=== PATIENT | female | born 1935 | race Caucasian/White ===

== ENCOUNTER → 2016-04-19 | Outpatient (CLI) | payer OTHER, BC ==
[~2016-04-19] MED LIST: ACET-1256 PO; AMIO200T4 PO; ASPI81TA28 PO; CHOL1000 PO; DOCU1TAB6 PO; FEXO1TAB49 PO; LISI40TA PO; MELO7.5T5 PO; POLY1SOL6 OP; PRAV80TA PO; PRED1SUS3 OPB; PRLSR20 PO; REFRESH GEL OPB; WARF2TAB PO; [UNRECOGNIZED DRUG - CODE] OPB
--- NOTE | 2016-04-19 12:13 | DIAGNOSTIC IMAGING REPORT ---
LEFT LOWER EXTREMITY VENOUS DOPPLER CLINICAL HISTORY: Left lower extremity pain and edema. COMPARISON STUDY: No previous studies for comparison. TECHNIQUE: Sonography of the deep venous system of the left lower extremity was performed. Compression and augmentation were evaluated. FINDINGS: The left common femoral, superficial femoral and popliteal veins were compressible. Augmentation was normal. Flow was shown within the deep calf vessels. Note was made of a 6.6 x 2.9 x 1.9 cm complex cystic abnormality within left popliteal fossa. This contains no color flow. IMPRESSION: 1. No evidence of deep venous thrombus within the left lower extremity. 2. 6.6 x 2.9 x 1.9 cm complex cystic abnormality within the left popliteal fossa. This likely reflects a complex popliteal cyst. A follow up ultrasound could be performed in 6 months. Electronically signed by: Osei Rae M.D. 04/19/2016 12:11 PM Dictated Date/Time: 04/19/2016 12:10 PM
== END | disposition home or self-care (01) ==
LOC: C.ULTRBC 11:33
PROVIDERS: ATTEND Orthopaedic Surgery
DX: M79.605 Pain in left leg (principal)

== ENCOUNTER → 2016-05-31 | Outpatient (CLI) | payer OTHER, BC ==
[2016-05-31 13:25] LABS: BASO % 0.3 %; BASO ABS # 0.03 K/uL (0-0.2); COMPLETE YES; EOS % 1.6 %; HEMATOCRIT 40.3 % (37-47); IG% 0.3 %; LYMPH % 17.1 %; LYMPH ABS # 1.81 K/uL (1.2-3.4); MEAN CELL VOLUME 94.6 fL (80-100); MEAN CORPUSCULAR HEMOGLOBIN 32.4 pg (25-34); MEAN CORPUSCULAR HGB CONC 34.2 g/dl (32-36); MONO % 9.1 %; NEUT % 71.6 %; PLATELET COUNT 218 K/uL (130-400); RED BLOOD COUNT 4.26 M/uL (4.2-5.4); WHITE BLOOD COUNT 10.59 K/uL (4.8-10.8)
[2016-05-31 13:52] LABS: PFT COL EPI 150 SECONDS (80-184)
== END | disposition home or self-care (01) ==
LOC: C.LABBC 11:30
PROVIDERS: ATTEND Orthopaedic Surgery Sports Medicine
DX: M25.469 Effusion, unspecified knee (principal)

== ENCOUNTER → 2016-08-02 | Outpatient (CLI) | payer OTHER, BC ==
[~2016-08-02] MED LIST changes: +ACET-24 PO; +ASPEC325 PO; +CRD200 PO; +FRRG PO; +REFRESH LIQUIGEL OPB; +ULT50X PO
--- NOTE | 2016-08-02 17:39 | DIAGNOSTIC IMAGING REPORT ---
ULTRASOUND LEFT LOWER EXTREMITY VENOUS CLINICAL HISTORY: Left leg pain and swelling. COMPARISON STUDY: Left lower extremity venous ultrasound dated 04/19/2016. TECHNIQUE: Real-time, grayscale, and color Doppler sonography of the deep veins of the left lower extremity was performed from the inguinal crease to the calf. Compression and augmentation were utilized. FINDINGS: There is no sonographic evidence of deep venous thrombosis identified in the left lower extremity. The common femoral, superficial femoral, and popliteal veins are patent and normally compressible. The greater saphenous vein and the profunda femoris vein at the junction with the common femoral vein are clear. The visualized calf veins are patent. A large complex structure in the popliteal fossa extending to the upper calf measures approximately 24 x 5 x 7 cm. Internal flow is questioned on color imaging. IMPRESSION: 1. There is no sonographic evidence of deep venous thrombosis identified in the left lower extremity. 2. There is a large complex collection identified in the popliteal fossa. This likely represents a popliteal cyst with rupture. Clinical correlation will be essential. Clinical follow-up to resolution is recommended. Consider precautionary sonographic follow-up if this fails to resolve. Electronically signed by: Guillermo Paniagua M.D. 08/02/2016 5:37 PM Dictated Date/Time: 08/02/2016 5:35 PM
== END | disposition home or self-care (01) ==
LOC: C.ULTR 16:46
PROVIDERS: ATTEND Family Medicine
DX: M79.662 Pain in left lower leg (principal)

== ENCOUNTER 2020-07-15 10:49 | Inpatient (IN) ==
[2020-07-15] MEDS ORDERED: SODIUM CHLORIDE 0.9% 1000ML 1,000 ML IV SCH (11:45)
--- NOTE | 2020-07-15 11:58 | XRay Report ---
SINGLE VIEW CHEST CLINICAL HISTORY: Atypical chest pain. FINDINGS: An AP, portable, upright chest radiograph is compared to study dated 01/19/2017. The patien t is status post midline sternotomy. The heart is mildly enlarged noting atherosclerotic calcificatio n of the thoracic aorta. There is a large hiatal hernia. The pulmonary vasculature is noncongested. C hronic interstitial thickening is similar to previous. No airspace consolidation or large pleural eff usion is identified. Mild atelectasis is noted at the lung bases. No pneumothorax is seen. The skelet al structures are osteopenic. The bony thorax is grossly intact. IMPRESSION: 1. Cardiomegaly with no acute cardiopulmonary abnormality. 2. Large hiatal hernia. ACT 112: Negative or not required by law. Electronically signed by: Guillermo Paniagua M.D. 07/15/2020 11:57 AM
[2020-07-15 12:08] LABS: Basophils # (auto) 0.02 K/uL (0-0.2); Basophils % (auto) 0.2 %; Hematocrit (blood only) 38.9 % (37-47); Hemoglobin 12.7 g/dL (12.0-16.0); Immature Granulocytes # (auto) 0.02 K/uL (0.00-0.02); Immature Granulocytes % (auto) 0.2 %; Lymphocytes # (auto) 1.53 K/uL (1.2-3.4); Lymphocytes % (auto) 14.5 %; Mean Corpuscular Hemoglobin 28.9 pg (25-34); Mean Corpuscular Hgb Conc 32.6 g/dL (32-36); Mean Corpuscular Volume 88.6 fL (80-100); Mean Platelet Volume 10.7 fL (7.4-10.4); Monocytes # (auto) 0.78 K/uL (0.11-0.59); Monocytes % (auto) 7.4 %; Neutrophils # (auto) 8.23 K/uL (1.4-6.5); Neutrophils % (auto) 77.7 %; Platelet Count 218 K/uL (130-400); RDW Coefficient of Variation 14.9 % (11.5-14.5); RDW Standard Deviation 48.4 fL (36.4-46.3); Red Blood Count 4.39 M/uL (4.2-5.4); White Blood Count 10.58 K/uL (4.8-10.8)
[2020-07-15 12:18] LABS: INR 1.1 (0.9-1.1); Partial Thromboplastin Ratio 0.8; Partial Thromboplastin Time 21.1 Seconds (21.0-31.0); Prothrombin Time 11.2 Seconds (9.0-12.0)
[2020-07-15 12:25] LABS: Alanine Aminotransferase 15 U/L (12-78); Albumin Level 3.1 gm/dl (3.4-5.0); Aspartate Aminotransferase 15 U/L (15-37); BUN Creatinine Ratio 25.7 (10-20); Bilirubin Direct < 0.1 mg/dl (0-0.2); Blood Urea Nitrogen 21 mg/dl (7-18); Calcium 8.7 mg/dl (8.5-10.1); Carbon Dioxide 29 mmol/L (21-32); Chloride 100 mmol/L (98-107); Creatinine Clr Calc Pharmacy 48.3 ml/min; Est GFR (African American) 76.1; Est GFR (Non-African American) 65.7; Glucose 101 mg/dl (70-99); Lipase 178 U/L (73-393); Magnesium 1.9 mg/dl (1.8-2.4); Potassium 2.8 mmol/L (3.5-5.1); Sodium 136 mmol/L (136-145)
[2020-07-15 12:30] LABS: Alkaline Phosphatase 74 U/L (45-117); Bilirubin,Total 0.7 mg/dl (0.2-1); Total Protein 9.2 gm/dl (6.4-8.2); Troponin I < 0.015 ng/ml (0-0.045)
[2020-07-15] MEDS ORDERED: ONDANSETRON INJ 2 MG/ML 2 ML VIAL IV STA (13:07)
[2020-07-15] MEDS ORDERED: ONDANSETRON INJ 2 MG/ML 2 ML VIAL ONE (13:09)
--- NOTE | 2020-07-15 13:16 | History & Physical Report ---
Date of Service July 15, 2020 Assessment & Plan (1) Nausea and vomiting: - Admit to tele - Antiemetics with zofran and compazine IV - IVF with K+ replacement, Monitor BMP to ensure improvement in K+ - Clear liquid diet as tolerated - Noted to be on magnesium replacement since last hospitalization, adverse effect of diarrhea, consider nephrology input regarding replacement therapy needs. (2) Atrial fibrillation with RVR: -EKG reviewed showing afib with HR in 110s -Last echo completed on 12/28/2019: reviewed per Epic. LVEF of 55-59%, LV wall thickness is moderately increased. s/p aortic root replacement Aortic valve prosthesis systolic gradients are normal for this type prosthesis. Mild mitral regurg present Mild tricuspid regurg present. - Cardiology consult, Dr. Shah - Will give IV lopressor 5 mg now, hold po metoprolol - Heparin gtt as cannot take po meds, convert to eliquis as per cardiology and once able to tolerate po. (3) Aortic stenosis, severe: - As above, noted on exam (4) H/O aortic valve replacement: -prosthetic valve done [place] [facility] [place]aced September 2016 -follows with Dr. Salomon as outpt. -initial trop negative (5) HTN (hypertension): - BP initially elevate at 147/84, not on antihypertensives as outpatient (6) HLD (hyperlipidemia): - Cont pravastatin 80 mg daily (7) Vertigo: - hx of such, stable (8) MGUS (monoclonal gammopathy of unknown significance): - Recent diagnosis, follows with [facility] heme/onc. Had recent bone marrow biopsy which was reassuring. PCP planning to follow monthly labs done at [facility] and considering yearly bone marrow biopsy. (9) Osteoarthritis: - Hx of such - Vit D on hold since hospitalization earlier this year. Was told by slot manager to DC this medication. (10) GERD (gastroesophageal reflux disease): - Recently taken off omeprazole (11) Hypokalemia: - Noted 2.8 on admission, will replace. Follow BMP. (12) DVT prophylaxis: - teds, heparin as above CODE: Full code Dispo: From home, likely to remain in the hospital x 2 days. History of Present Illness Primary Care Provider: Eliazar Reis MD This in an 84 yo F with PMHx of Aortic stenosis s/p AV replacement on baby aspirin, Paroxysmal Afib s/p ablation and conversion with amiodarone, left atrial appendage ligation in September 2016 HLD, MGUS, osteoarthritis, GERD, allergic rhinitis, nephrolithiasis and vertigo who presents from her PCP office with c/o nausea, weakness, vomiting x 3 days. She has hx of nausea and vomiting once monthly which happened 1.5 mo ago, which resulted in hospitalization for dehydration and hypercalcemia. At that time she was placed on magnesium supplements and thinks that diarrhea has been a daily/every other day occurrence since then. She is unable to keep food down currently despite trials with Pedialyte and water. She has not been able to keep her medications down since Tuesday night. Pt was previously on omeprazole, but nephrology discontinued this medication recently, and hasn't taken it in about 1 month. She reports weakness, denies dizziness and lightheadedness. Admits to substernal burning, no chest pain or pressure. Pt does not feel palpitations or irregular heartbeat. She has not been in afib since the time of her aortic valve replacement, and although previously on coumadin, is no longer on anticoagulation other than baby aspirin. The patient was here visiting her daughter over the , as she typically resides in [place] with her other daughter, Nicole, who is present at bedside. She gets her medical care here as well as [facility] heme/onc and [facility]. Pt typically is able to care for herself at home. She walks with a cane. Daughter also mentions pt with hx of during last hospita lization, and requests to be able to visit. We discussed visitor restrictions due to the COVID-19 pandemic, and unfortunately at this time no visitors are allowed on the floors. Allergies Allergy/AdvReac Type Severity Reaction Status Date / Time simvastatin Allergy Unknown ELEVATED Verified 07/15/20 11:49 LIVER ENZYMES oxaprozin AdvReac Intermediate MAKES FEEL Verified 07/15/20 11:49 DEPRESSED Home Medications Medication Instructions Recorded Confirmed Type alendronate 70 mg PO WK 07/15/20 07/15/20 History magnesium oxide 1,000 mg PO TID 07/15/20 07/15/20 History potassium chloride 20 meq PO DAILY 07/15/20 07/15/20 History pravastatin 80 mg PO DAILY 07/15/20 07/15/20 History prednisolone acetate 1 drp OPHTHALMIC (EYE) UD 07/15/20 07/15/20 History sod phos di, mono-K phos mono 2 tab PO TID 07/15/20 07/15/20 History [Phospha 250 Neutral] solifenacin 5 mg PO DAILY 07/15/20 07/15/20 History Past Med/Surg History Social History Smoking Status: Never smoker Preferred Language: Sammarinese Feels Safe at Home: Yes Review of Systems Review of Systems: Constitutional: No fever, sweats or chills, + weakness Eyes: No diplopia, no worsening or blurred vision ENT: normal hearing, no trouble swallowing Respiratory: No cough, sputum, dyspnea at rest or on exertion Cardiovascular: + substernal burning, no distinct chest pain, tightness or palpitations Abdomen: As per HPI, No pain, +nausea, +vomiting, + chronic diarrhea since being on magnesium, no constipation Musculoskeletal: No joint pain, calf pain, swelling Neurologic: No weakness, numbness/tingling, + balance problems and uses a cane at baseline Psychiatric: No anxiety or depression, + sundowning Skin: No rash or itch Physical Exam Physical Exam: General: awake, alert, no apparent distress Head: Normocephalic, atraumatic ENT: PERRL, EOMI, no pharyngeal exudate, mucous membranes moist Chest: Clear to auscultation, on room air, no adventitious breath sounds Cardiac: Irregularly irregular, HR ~ 110s at rest. When sat her forward to auscultate lungs HR went into 170s when she became nauseous and was actively dry heaving at bedside, + loud systolic murmur grade V/, no JVD, normal peripheral pulses, good capillary refill Abdominal: NABS x 4 quadrants, soft, nondistended, nontender to palpation, no rebound or guarding Extremities: Normal inspection, no peripheral edema or erythema, calfs nontender to palpation Psych: Normal mood and affect Neuro: AAO x 3, strength intact bilaterally and rated 5/5, no motor deficits, speech is clear, no peripheral sensory deficits Results & Data Results & Data ([facility]) Vital Signs (Past 12 Hours) Vital Signs Temp Pulse Resp BP Pulse Ox 07/15/20 10:54 37.5 C 119 H 18 147/84 H 94 Diagnostic Findings SINGLE VIEW CHEST CLINICAL HISTORY: Atypical chest pain. FINDINGS: An AP, portable, upright chest radiograph is compared to study dated 01/19/2017. The patient is status post midline sternotomy. The heart is mildly enlarged noting atherosclerotic calcification of the thoracic aorta. There is a large hiatal hernia. The pulmonary vasculature is noncongested. Chronic interstitial thickening is similar to previous. No airspace consolidation or large pleural effusion is identified. Mild atelectasis is noted at the lung bases. No pneumothorax is seen. The skeletal structures are osteopenic. The bony thorax is grossly intact. IMPRESSION: 1. Cardiomegaly with no acute cardiopulmonary abnormality. 2. Large hiatal hernia. ECG Additional Comments: 15-JUL-2020 11:07:05 [facility]-EDSTAT ROUTINE RETRIEVAL Atrial fibrillation with rapid ventricular response with premature ventricular or aberrantly conducted complexes Left axis deviation Right bundle branch block Voltage criteria for left ventricular hypertrophy Abnormal ECG No previous ECGs available 25mm/s 10mm/mV 150Hz 9.0.9 12SL 241 PONCHO: 3 Referred by: REFERRED SELF Unconfirmed Vent. rate 116 BPM SC interval * ms QRS duration 154 ms QT/QTc 362/503 ms Code Status & VTE Plan Code Status Full code- discussed with the pt and daughter at bedside Supervising Physician Co-Signing Physician Notes I saw this patient with the physician virtual office assistant, I participated in the history, physical, review of systems, and physical exam. I reviewed the medications with the patient and the physician virtual office assistant and helped reconcile the medications. I helped take a detailed family and social history as well. I formulated the assessment and plan personally with the physician virtual office assistant and went over it with the patient. ROS-No Headache, No Visual Changes, + Nausea, + Vomiting, No Fever, No Chills, No Neck Pain or Stiffness, No Chest Pain, No Palpitations, No SOB, No GARCIA, No Cough, No Sputum, No Wheezing, No Abdominal Pain, + Diarrhea, No Hematemesis, No Hemoptysis, No Unexpected Weight Loss, No Flank pain, No Melena, No Hematochezia, No Frequency, No Urgency, No Burning, No Hematuria, No Rashes, No Diaphoresis. Appetite is Normal, Palpitations Physical Exam Gen-AAO x 3, NAD, Afebrile, obese Head-NCAT, EOMI, PERRLA, Anicteric Sclera, No Posterior Pharyngeal Erythema Neck-Supple, No JVD, No Thyromegaly, No Masses, No LAD, No Bruits Lungs-Clear to Auscultation Bilaterally, No Rales, No Rhonchi, No Wheezing, No Crepitus Chest-Irreg/Irreg, No S4, +S1, +S2, No S3, No Murmurs, No Rubs, No Gallops, + Ectopy Abdomen-Soft, Bowel Sounds Present, Non Tender, Non Distended, No Hepatomegaly, No Splenomegaly, No Palpable Masses, No Rebound, No Rigidity, No Guarding Musculoskeletal-Full Range of Motion Bilaterally, No CVAT Extremities-No Cyanosis, No Clubbing, No Edema Nuero-Cranial Nerves II-XII grossly intact, Motor WNL, DTRs WNL, Strength WNL, Non Focal Psych-Normal Mood
[2020-07-15] MEDS ORDERED: OPTIRAY 320 125ml IV ONE (13:18)
[2020-07-15 13:35] LABS: Influenza A virus by PCR Negative (Neg); Influenza B virus by PCR Negative (Neg); RSV by PCR Negative (Neg); SARS CoV2 RNA(COVID-19) InHosp NEGATIVE (Negative)
--- NOTE | 2020-07-15 13:48 | CT Scan Report ---
CT ANGIOGRAPHY OF THE CHEST, PULMONARY EMBOLUS PROTOCOL CLINICAL HISTORY: Abdominal pain, nausea and vomiting. COMPARISON STUDY: Chest radiograph performed earlier today. Chest radiograph January 19, 2017. TECHNIQUE: Following IV administration of 120 mL of Optiray-320, helical axial images of the chest we re obtained utilizing the pulmonary embolus protocol. Maximal intensity projections and sagittal and coronal reformats were viewed on an independent 3D workstation. IV contrast was administered withou t complication. Automated exposure control was utilized for the study. A dose lowering technique wa s utilized adhering to the principles of ALARA. CT DOSE: 975.06 mGy.cm FINDINGS: No pulmonary emboli are identified. Moderate cardiomegaly is noted. There is moderate darshan nary artery calcification. Left atrial appendage occluder device is noted. There is no pericardial ef fusion. No enlarged thoracic lymph nodes are present. There is a trace right pleural effusion. No pne umothorax is present. Central airways are patent. There is no consolidation to suggest pneumonia. Yvette ear and ground glass opacities favor atelectasis. Note is made of a large hiatal hernia. The GE junct ion is above the diaphragm. The gastric cardia, fundus and proximal body of the stomach are above the diaphragm as well. IMPRESSION: 1. No pulmonary emboli identified. 2. 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 3. Trace right pleural effusion. 4. Cardiomegaly. ACT 112: Negative or not required by law. Electronically signed by: Osei Rae M.D. 07/15/2020 1:46 PM
--- NOTE | 2020-07-15 13:55 | CT Scan Report ---
CT abd pelvis IV con only CLINICAL HISTORY: Nausea, vomiting, Willy pain. COMPARISON STUDY: None. TECHNIQUE: Patient was scanned in a dynamic helical fashion during intravenous administration of 120 cc of Optiray 320. A dose lowering technique was utilized adhering to the principles of ALARA. CT DOSE: FINDINGS: Lower chest: There is a large hiatal hernia with a mixed sliding and paraesophageal component. There is a small right pleural effusion. There are lower lobe atelectatic changes. Liver: There is a capsular calcification at the junction of the left and right hepatic lobes. Gallbladder: There is a 6 mm hyperdense focus within the gallbladder fundus, polyp versus adenomyomat osis. Spleen: Normal in size and attenuation. Pancreas: There is a 1 cm hypodense lesion within the pancreatic head. There is no pancreatic ductal dilatation. This statistically represents a side branch IPMN. 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 There are bilateral renal hypodensities con sistent with cysts Bowel: There are no transition zones indicate bowel obstruction. There are dilated small bowel loops, but these are not fluid-filled and the findings are unlikely to represent an obstruction. There is m ild dilatation the duodenum proximal to the SMA crossover. There is colonic diverticulosis. There is no evidence of acute peridiverticular inflammatory change. The appendix appears normal. There is a 2. 5 cm polyp versus adherent stool within the transverse colon. Endoscopic correlation should be consid ered in follow-up. Peritoneum: There is no intraperitoneal free air or abdominal ascites. Is a 8 cm fat-containing umbil ical hernia Vasculature: The abdominal aorta is normal in course and caliber. Adenopathy: None. Pelvic viscera: The uterus is surgically absent Skeletal structures: There is a grade 1 spondylolisthesis of L5 on S1 IMPRESSION: 1. Large hiatal hernia with a mixed sliding and paraesophageal components 2. Small right pleural effusion 3. Mildly dilated small bowel loops, but no current evidence of a high-grade obstruction. 4. 2.5 cm polyp within the transverse colon versus adherent stool. Endoscopic correlation should be c onsidered in follow-up 5. 8 cm fat-containing umbilical hernia 6. 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 Right-sided nephrolithiasis 8. 6 mm hyperdense focus within the gallbladder fundus, polyp versus adenomyomatosis 9. Nonspecific 1 cm hypodensity within the pancreatic head, possibly representing a side branch IPMN. No pancreatic ductal dilatation. 10. Normal appendix 11. Extensive sigmoid diverticulosis. No evidence of acute peridiverticular inflammatory change ACT 112: Negative or not required by law. Electronically signed by: Brayden Johnson M.D. 07/15/2020 1:53 PM
[2020-07-15] MEDS: POTASSIUM CHLORIDE 10 MEQ TABCR PO STA ×2 (14:17→14:44)
[2020-07-15] MEDS: POTASSIUM CHLORIDE / WTR 10 MEQ/100 ML PLCT IV SCH ×2 (14:17→15:56)
[2020-07-15] MEDS ORDERED: METOPROLOL TARTRATE 25 MG TAB PO STA (14:35)
[2020-07-15] MEDS ORDERED: APIXABAN 5 MG TABLET PO STA (14:36)
--- NOTE | 2020-07-15 14:47 | Electrocardiogram Report ---
Test Reason : Blood Pressure : / mmHG Vent. Rate : 116 BPM Atrial Rate : 127 BPM P-R Int : 000 ms QRS Dur : 154 ms QT Int : 362 ms P-R-T Axes : 000 -42 046 degrees QTc Int : 503 ms Atrial fibrillation with rapid ventricular response with premature ventricular or aberrantly conducte d complexes Left axis deviation Right bundle branch block Voltage criteria for left ventricular hypertrophy Abnormal ECG No previous ECGs available Confirmed by John Roca ([id number]) on 07/15/2020 2:47:14 PM Referred By: REFERRED SELF Confirmed By:John Roca
[2020-07-15] MEDS ORDERED: METOPROLOL TARTRATE 1 MG/ML VIAL IV STA (14:50)
[2020-07-15] MEDS ORDERED: PROMETHAZINE HCL 6.25 MG in SODIUM CHLORIDE 0.9% 50 ML IV STA (14:50)
[2020-07-15] MEDS ORDERED: PROMETHAZINE 6.25 MG/50.25 ML NSS IV ONE (14:56)
[2020-07-15] MEDS ORDERED: Heparin IV Adult Wt-Based Standard *NO* Bolus Protocol ONE (15:00)
[2020-07-15] MEDS: HEPARIN SODIUM/DEXTROSE 25,000 UNITS/500 ML BAG IV SCH (15:45)
--- NOTE | 2020-07-15 17:46 | Emergency Department Note ---
History of Present Illness General Chief Complaint: Cardiac Assessment Stated Complaint: AFIB, , VOMITING Time Seen by Provider: 07/15/20 11:25 History of Present Illness Provider Complaint: abdominal pain Onset (ago): 2 day(s) Pain Consistency: intermittent Location: diffuse Radiation: none Severity: moderate Maximum Pain Intensity: 0 Current Pain Intensity: 0 Quality: + cramping, + stabbing, + aching and + sharp Relieved By: + nothing Exacerbated By: + nothing Context: no foreign travel, no possible food poisoning, no sick contacts, no recent antibiotic use, no recent surgery/procedure and no history of similar episodes Associated Symptoms: + nausea and + vomiting; no diarrhea, no fever, no chills, no constipation, no dysuria, no hematemesis, no hematochezia, no melena, no hematuria, no anorexia, no syncope, no headache, no neck pain, no back pain, no chest pain, no weakness and no breathing difficulty Patient states she went to her PCPs office at [facility] where they found that she had atrial fibrillation. Per the [facility] provider who saw her the patient does not have a history of atrial fibrillation. Patient's daughter is at [facility] and states she had a heart valve replaced [place] [address] Olvera in [facility] and at that time she did have an episode of atrial fibrillation before and after the procedure. The daughter states that the patient was on Coumadin and amiodarone however they were subsequently stopped. Patient is currently not on any blood thinners. Home Medications Medication Instructions Recorded Confirmed Type alendronate 70 mg PO WK 07/15/20 07/15/20 History magnesium oxide 1,000 mg PO TID 07/15/20 07/15/20 History potassium chloride 20 meq PO DAILY 07/15/20 07/15/20 History pravastatin 80 mg PO DAILY 07/15/20 07/15/20 History prednisolone acetate 1 drp OPHTHALMIC (EYE) UD 07/15/20 07/15/20 History sod phos di, mono-K phos mono 2 tab PO TID 07/15/20 07/15/20 History [Phospha 250 Neutral] solifenacin 5 mg PO DAILY 07/15/20 07/15/20 History Allergies Allergy/AdvReac Type Severity Reaction Status Date / Time simvastatin Allergy Unknown ELEVATED Verified 07/15/20 11:49 LIVER ENZYMES oxaprozin AdvReac Intermediate MAKES FEEL Verified 07/15/20 11:49 DEPRESSED Past Med/Surg History Medical History (Updated 07/15/20 @ 17:47 by Joreg Ramos) GERD (gastroesophageal reflux disease) HLD (hyperlipidemia) HTN (hypertension) MGUS (monoclonal gammopathy of unknown significance) No pertinent family history Surgical History (Updated 07/15/20 @ 17:41 by Jorge Ramos) H/O aortic valve replacement Social History Smoking Status: Never smoker Preferred Language: Polish Feels Safe at Home: Yes Review of Systems A total of 10 systems reviewed and were otherwise negative Physical Exam Vital Signs: Vital Signs - 24 hr 07/15/20 10:54 07/15/20 11:39 07/15/20 12:50 Temperature 37.5 C Temperature Source Temporal Artery Sc an Pulse Rate 119 H Pulse Rate [Apical ] 103 H Respiratory Rate 18 18 Respiratory Effort / Characteristics Non-Labored Sponta neous Respiratory Depth Normal Respiratory Patter n Regular Blood Pressure 147/84 H Blood Pressure [Le ft Arm] 178/98 H Blood Pressure Apurva n 105 Blood Pressure Apurva n [Left Arm] 124 Blood Pressure Pos ition Sitting Pulse Oximetry 94 94 94 Oxygen Delivery Me thod Room Air Room Air Room Air Sepsis Recent Feve r Within 48 Hours No Sepsis New/Unexpla ined Change in Men bean Status N/A Sepsis Action Take n by Nursing No Action Required 07/15/20 14:00 Temperature Temperature Source Pulse Rate Pulse Rate [Apical ] 100 H Respiratory Rate 18 Respiratory Effort / Characteristics Respiratory Depth Respiratory Patter n Blood Pressure Blood Pressure [Le ft Arm] 182/110 H Blood Pressure Apurva n Blood Pressure Apurva n [Left Arm] 134 Blood Pressure Pos ition Pulse Oximetry 94 Oxygen Delivery Me thod Room Air Sepsis Recent Feve r Within 48 Hours Sepsis New/Unexpla ined Change in Men bean Status Sepsis Action Take n by Nursing Physical Exam: Physical Exam GENERAL: She is oriented to person, place, and time. She appears well-developed and well-nourished. She does not appear distressed. HENT: Exam performed. -Head: Normocephalic and atraumatic. -Right Ear: External ear normal. No mastoid tenderness. -Left Ear: External ear normal. No mastoid tenderness. -Mouth/Throat: The oropharynx is clear and moist. No trismus in the jaw. No dental abscesses or uvula swelling. No oropharyngeal exudate or tonsillar abscesses. EYES: Conjunctivae and EOM are normal. Pupils are equal, round, and reactive to light. Right eye exhibits no discharge. Left eye exhibits no discharge. No scleral icterus. NECK: Normal range of motion. Neck supple. No JVD present. No spinous process tenderness present. No carotid bruit present. No rigidity. No tracheal deviation and normal range of motion present. No Brudzinski's sign and no Kernig's sign noted. CV: Normal rate, irregular rhythm, normal heart sounds and intact distal pulses. There is no peripheral edema. Palpable radial pulses bue. PULM/CHEST: Effort normal and breath sounds normal. No respiratory distress. No stridor. She has no wheezes. She has no rales. -Chest Wall: She exhibits no tenderness. ABD: The abdomen is soft. Bowel sounds are normal. She has no distension. No mass is present. There is no tenderness. There is no rebound, no guarding, no Thomson's sign and no tenderness at McBurney's point. Rovsig negative MUSC/SKEL: Normal range of motion. There is no peripheral edema, tenderness or deformity. LYMPH: No cervical adenopathy. NEURO: She is alert and oriented to person, place, and time. She has normal strength. No cranial nerve deficit or sensory deficit. Coordination and gait normal. GCS eye subscore is 4. GCS verbal subscore is 5. GCS motor subscore is 6. Cerebellar tests wnl. SKIN: Skin is warm and dry. She is not diaphoretic. PSYCH: She has a normal mood and affect. Behavior is normal. Judgment and thought content normal. Course Course 1125: The patient was evaluated in room B2. A complete history and physical exam was performed Cardiac monitoring: An order was placed for continuous cardiac monitoring. The monitor shows a rate of 115 with atrial fibrillation rhythm 1430: Vital signs stable. Labs within normal limits with exception of potassium 2.8. Potassium please will be started in the emergency department. Imaging shows no PE. Discussed the case with cardiology Dr. Lara who states he will add metoprolol and Eliquis for the patient. He recommends admission to the hospitalist team. Case was discussed with Flor OLIVA stated to admit to Dr. Argueta. Administered Medications Sodium Chloride (Nss 1000ml) 1,000 mls @ 125 mls/hr IV .Q8H [facility] Stop: 08/14/20 11:44 Last Admin: 07/15/20 12:31 Dose: 125 mls/hr Documented by: [id number] Heparin Sodium/Dextrose (Heparin Sodium/Dextrose) 25,000 units in 500 mls @ 21 mls/hr IV .[id number] [facility]; Protocol Stop: 08/14/20 14:59 Last Admin: 07/15/20 15:45 Dose: 1,050 units/hr, 21 mls/hr Documented by: [id number] Cosigned by: [id number] Discontinued Medications Apixaban (Apixaban 5 Mg Tablet) 5 mg PO NOW STA Stop: 07/15/20 14:37 Last Admin: 07/15/20 15:41 Dose: Not Given Documented by: [id number] Potassium Chloride (K Edu / Wtr) 10 meq in 100 mls @ 100 mls/hr IV Q1H [facility] Stop: 07/15/20 15:59 Last Infusion: 07/15/20 16:59 Dose: 0 mls/hr Documented by: [id number] Admin: 07/15/20 15:56 Dose: 100 mls/hr Documented by: [id number] Infusion: 07/15/20 15:17 Dose: 0 mls/hr Documented by: [id number] Admin: 07/15/20 14:17 Dose: 100 mls/hr Documented by: [id number] Promethazine HCl 6.25 mg/ (Sodium Chloride) 50.25 mls @ 201 mls/hr IV NOW STA Stop: 07/15/20 15:04 Last Infusion: 07/15/20 15:16 Dose: 0 mls/hr Documented by: [id number] Admin: 07/15/20 15:00 Dose: 201 mls/hr Documented by: [id number] Ioversol (Optiray 320 125ml) 120 ml IV ONCE ONE Stop: 07/15/20 13:19 Last Admin: 07/15/20 13:18 Dose: 120 ml Documented by: [id number] Metoprolol Tartrate (Metoprolol Tartrate 25 Mg Tab) 25 mg PO NOW STA Stop: 07/15/20 14:36 Last Admin: 07/15/20 15:17 Dose: Not Given Documented by: [id number] Metoprolol Tartrate (Metoprolol Tartrate 1 Mg/Ml Vial) 5 mg IV NOW STA Stop: 07/15/20 14:51 Last Admin: 07/15/20 15:07 Dose: 5 mg Documented by: [id number] Ondansetron HCl (Ondansetron Inj 2 Mg/Ml 2 Ml Vial) Confirm Administered Dose 4 mg .ROUTE .[facility] ONE Stop: 07/15/20 13:10 Last Admin: 07/15/20 13:15 Dose: Not Given Documented by: [id number] Ondansetron HCl (Ondansetron Inj 2 Mg/Ml 2 Ml Vial) 4 mg IV NOW STA Stop: 07/15/20 13:08 Last Admin: 07/15/20 13:15 Dose: 4 mg Documented by: [id number] Potassium Chloride (Potassium Chloride 10 Meq Tabcr) 40 meq PO NOW STA Stop: 07/15/20 14:01 Last Admin: 07/15/20 14:44 Dose: 10 meq Documented by: [id number] Promethazine HCl (Promethazine 6.25 Mg/50.25 Ml Nss) Confirm Administered Dose 6.25 mg IV .[employer] ONE Stop: 07/15/20 14:57 Last Admin: 07/15/20 15:00 Dose: Not Given Documented by: [id number] Medical Decision Making Laboratory Data Result diagrams: 07/15/20 11:15 07/15/20 11:15 Lab Results 07/15/20 07/15/20 07/15/20 Range/Units 11:15 11:15 11:15 WBC 10.58 (4.8-10.8) K/uL RBC 4.39 (4.2-5.4) M/uL Hgb 12.7 (12.0-16.0) g/dL Hct 38.9 (37-47) % MCV 88.6 (80-100) fL MCH 28.9 (25-34) pg MCHC 32.6 (32-36) g/dL RDW Std Deviation 48.4 H (36.4-46.3) fL RDW Coeff of Tung 14.9 H (11.5-14.5) % Plt Count 218 (130-400) K/uL MPV 10.7 H (7.4-10.4) fL Immature Gran % (Auto) 0.2 % Neut % (Auto) 77.7 % Lymph % (Auto) 14.5 % [place] % (Auto) 7.4 % Eos % (Auto) 0.0 % Baso % (Auto) 0.2 % Neut # (Auto) 8.23 H (1.4-6.5) K/uL Lymph # (Auto) 1.53 (1.2-3.4) K/uL [place] # (Auto) 0.78 H (0.11-0.59) K/uL Eos # (Auto) 0.00 (0-0.5) K/uL Baso # (Auto) 0.02 (0-0.2) K/uL Immature Gran # (Auto) 0.02 (0.00-0.02) K/uL PT 11.2 (9.0-12.0) Seconds INR 1.1 (0.9-1.1) APTT 21.1 (21.0-31.0) Seconds PTT Ratio 0.8 Sodium 136 (136-145) mmol/L Potassium 2.8 L (3.5-5.1) mmol/L Chloride 100 (98-107) mmol/L Carbon Dioxide 29 (21-32) mmol/L Anion Gap 6.0 (3-11) BUN 21 H (7-18) mg/dl Creatinine 0.83 (0.6-1.2) mg/dl Est Cr Clr Drug Dosing 48.3 ml/min Est GFR ( Amer) 76.1 Est GFR (Non-Af Amer) 65.7 BUN/Creatinine Ratio 25.7 H (10-20) Glucose 101 H (70-99) mg/dl Calcium 8.7 (8.5-10.1) mg/dl Magnesium 1.9 (1.8-2.4) mg/dl Total Bilirubin 0.7 (0.2-1) mg/dl Direct Bilirubin < 0.1 (0-0.2) mg/dl AST 15 (15-37) U/L ALT 15 (12-78) U/L Alkaline Phosphatase 74 (45-117) U/L Troponin I < 0.015 (0-0.045) ng/ml Total Protein 9.2 H (6.4-8.2) gm/dl Albumin 3.1 L (3.4-5.0) gm/dl Lipase 178 (73-393) U/L COVID-19 Eval Order SARS-CoV-2 (PCR) (Negative) Influenza Type A (PCR) (Neg) Influenza Type B (PCR) (Neg) RSV (RT-PCR) (Neg) 07/15/20 07/15/20 Range/Units 12:20 12:20 WBC (4.8-10.8) K/uL RBC (4.2-5.4) M/uL Hgb (12.0-16.0) g/dL Hct (37-47) % MCV (80-100) fL MCH (25-34) pg MCHC (32-36) g/dL RDW Std Deviation (36.4-46.3) fL RDW Coeff of Tung (11.5-14.5) % Plt Count (130-400) K/uL MPV (7.4-10.4) fL Immature Gran % (Auto) % Neut % (Auto) % Lymph % (Auto) % [place] % (Auto) % Eos % (Auto) % Baso % (Auto) % Neut # (Auto) (1.4-6.5) K/uL Lymph # (Auto) (1.2-3.4) K/uL [place] # (Auto) (0.11-0.59) K/uL Eos # (Auto) (0-0.5) K/uL Baso # (Auto) (0-0.2) K/uL Immature Gran # (Auto) (0.00-0.02) K/uL PT (9.0-12.0) Seconds INR (0.9-1.1) APTT (21.0-31.0) Seconds PTT Ratio Sodium (136-145) mmol/L Potassium (3.5-5.1) mmol/L Chloride (98-107) mmol/L Carbon Dioxide (21-32) mmol/L Anion Gap (3-11) BUN (7-18) mg/dl Creatinine (0.6-1.2) mg/dl Est Cr Clr Drug Dosing ml/min Est GFR ( Amer) Est GFR (Non-Af Amer) BUN/Creatinine Ratio (10-20) Glucose (70-99) mg/dl Calcium (8.5-10.1) mg/dl Magnesium (1.8-2.4) mg/dl Total Bilirubin (0.2-1) mg/dl Direct Bilirubin (0-0.2) mg/dl AST (15-37) U/L ALT (12-78) U/L Alkaline Phosphatase (45-117) U/L Troponin I (0-0.045) ng/ml Total Protein (6.4-8.2) gm/dl Albumin (3.4-5.0) gm/dl Lipase (73-393) U/L COVID-19 Eval Order CovFluRsv at [facility] SARS-CoV-2 (PCR) NEGATIVE (Negative) Influenza Type A (PCR) Negative (Neg) Influenza Type B (PCR) Negative (Neg) RSV (RT-PCR) Negative (Neg) Imaging Data Radiologist's Impression: Abdomen/Pelvis CT 07/15/20 11:38 CT abd pelvis IV con only CLINICAL HISTORY: Nausea, vomiting, Willy pain. COMPARISON STUDY: None. TECHNIQUE: Patient was scanned in a dynamic helical fashion during intravenous administration of 120 cc of Optiray 320. A dose lowering technique was utilized adhering to the principles of ALARA. CT DOSE: FINDINGS: Lower chest: There is a large hiatal hernia with a mixed sliding and paraesophageal component. There is a small right pleural effusion. There are lower lobe atelectatic changes. Liver: There is a capsular calcification at the junction of the left and right hepatic lobes. Gallbladder: There is a 6 mm hyperdense focus within the gallbladder fundus, polyp versus adenomyomatosis. Spleen: Normal in size and attenuation. Pancreas: There is a 1 cm hypodense lesion within the pancreatic head. There is no pancreatic ductal dilatation. This statistically represents a side branch IPMN. 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 There are bilateral renal hypodensities consistent with cysts Bowel: There are no transition zones indicate bowel obstruction. There are dilated small bowel loops, but these are not fluid-filled and the findings are unlikely to represent an obstruction. There is mild dilatation the duodenum proximal to the SMA crossover. There is colonic diverticulosis. There is no evidence of acute peridiverticular inflammatory change. The appendix appears normal. There is a 2.5 cm polyp versus adherent stool within the transverse colon. Endoscopic correlation should be considered in follow-up. Peritoneum: There is no intraperitoneal free air or abdominal ascites. Is a 8 cm fat-containing umbilical hernia Vasculature: The abdominal aorta is normal in course and caliber. Adenopathy: None. Pelvic viscera: The uterus is surgically absent Skeletal structures: There is a grade 1 spondylolisthesis of L5 on S1 IMPRESSION: 1. Large hiatal hernia with a mixed sliding and paraesophageal components 2. Small right pleural effusion 3. Mildly dilated small bowel loops, but no current evidence of a high-grade obstruction. 4. 2.5 cm polyp within the transverse colon versus adherent stool. Endoscopic correlation should be considered in follow-up 5. 8 cm fat-containing umbilical hernia 6. 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 Right-sided nephrolithiasis 8. 6 mm hyperdense focus within the gallbladder fundus, polyp versus adenomyomatosis 9. Nonspecific 1 cm hypodensity within the pancreatic head, possibly representing a side branch IPMN. No pancreatic ductal dilatation. 10. Normal appendix 11. Extensive sigmoid diverticulosis. No evidence of acute peridiverticular inflammatory change ACT 112: Negative or not required by law. Electronically signed by: Brayden Johnson M.D. 07/15/2020 1:53 PM Chest X-Ray 07/15/20 11:39 SINGLE VIEW CHEST CLINICAL HISTORY: Atypical chest pain. FINDINGS: An AP, portable, upright chest radiograph is compared to study dated 01/19/2017. The patient is status post midline sternotomy. The heart is mildly enlarged noting atherosclerotic calcification of the thoracic aorta. There is a large hiatal hernia. The pulmonary vasculature is noncongested. Chronic interstitial thickening is similar to previous. No airspace consolidation or large pleural effusion is identified. Mild atelectasis is noted at the lung bases. No pneumothorax is seen. The skeletal structures are osteopenic. The bony thorax is grossly intact. IMPRESSION: 1. Cardiomegaly with no acute cardiopulmonary abnormality. 2. Large hiatal hernia. ACT 112: Negative or not required by law. Electronically signed by: Guillermo Paniagua M.D. 07/15/2020 11:57 AM Chest CTA 07/15/20 12:25 CT ANGIOGRAPHY OF THE CHEST, PULMONARY EMBOLUS PROTOCOL CLINICAL HISTORY: Abdominal pain, nausea and vomiting. COMPARISON STUDY: Chest radiograph performed earlier today. Chest radiograph January 19, 2017. TECHNIQUE: Following IV administration of 120 mL of Optiray-320, helical axial images of the chest were obtained utilizing the pulmonary embolus protocol. Maximal intensity projections and sagittal and coronal reformats were viewed on an independent 3D workstation. IV contrast was administered without complication. Automated exposure control was utilized for the study. A dose lowering technique was utilized adhering to the principles of ALARA. CT DOSE: 975.06 mGy.cm FINDINGS: No pulmonary emboli are identified. Moderate cardiomegaly is noted. There is moderate coronary artery calcification. Left atrial appendage occluder device is noted. There is no pericardial effusion. No enlarged thoracic lymph nodes are present. There is a trace right pleural effusion. No pneumothorax is present. Central airways are patent. There is no consolidation to suggest pneumonia. Linear and ground glass opacities favor atelectasis. Note is made of a large hiatal hernia. The GE junction is above the diaphragm. The gastric cardia, fundus and proximal body of the stomach are above the diaphragm as well. IMPRESSION: 1. No pulmonary emboli identified. 2. 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 3. Trace right pleural effusion. 4. Cardiomegaly. ACT 112: Negative or not required by law. Electronically signed by: Osei Rae M.D. 07/15/2020 1:46 PM ECG Data Indication: abdominal pain Rate (beats per minute): 116 Rhythm: atrial fibrillation Findings: + RBBB; no ST depression, no ST elevation and no prolonged QT Additional Comments: [facility] Narrative 1125: The patient was evaluated in room B2. A complete history and physical exam was performed Cardiac monitoring: An order was placed for continuous cardiac monitoring. The monitor shows a rate of 115 with atrial fibrillation rhythm 1430: Vital signs stable. Labs within normal limits with exception of potassium 2.8. Potassium please will be started in the emergency department. Imaging shows no PE. Discussed the case with cardiology Dr. Lara who states he will add metoprolol and Eliquis for the patient. He recommends admission to the hospitalist team. Case was discussed with Flor OLIVA stated to admit to Dr. Argueta. Impression & Plan Acute hypokalemia, Atrial fibrillation Discharge Plan Visit Data Chief Complaint: Cardiac Assessment Stated Complaint: AFIB, , VOMITING ED Provider: Jorge Ramos Discharge Problem: Acute hypokalemia, Atrial fibrillation Patient Disposition: Admitted As Inpatient Discharge Problem: Atrial fibrillation Qualifiers: Atrial fibrillation type: unspecified Qualified Code(s): I48.91 - Unspecified atrial fibrillation
[2020-07-15] MEDS ORDERED: ONDANSETRON INJ 2 MG/ML 2 ML VIAL IV PRN (18:36)
[2020-07-15] MEDS ORDERED: PROCHLORPERAZINE 10 MG in SYRINGE 8 ML IV PRN (19:00)
--- NOTE | 2020-07-15 19:35 | Cardiology Consultation ---
Date of Consultation July 15, 2020 Assessment & Plan (1) Atrial fibrillation: Recurrent atrial fibrillation chronic right bundle branch block Intermittent bifascicular block pattern History of bioprosthetic aortic valve replacement Mild luminal irregularities on coronary angiography, 2016 -Presents with nauseousness, no difficulty swallowing. Profound hypokalemia noted which is being replaced by the primary team. At present, continue IV heparin for stroke prophylaxis Continue supportive care with gentle IV fluids. No additional oral medications planned at this time pending resolution of nauseousness. History of Present Illness Attending Physician: Wallace Argueta DO History of Present Illness Shannon Salazar is an 84 year old female seen in cardiology consultation per the request of Flor Rodriguez PA-C and Dr Argueta of the [facility] service for evaluation of atrial fibrillation. The patient's primary machine tool dresser is Dr. Salomon. Patient has a history of surgical aortic valve replacement utilizing a [address] Db Epic bioprosthesis in September,. Perioperative atrial fibrillation has been observed and she underwent surgical left atrial appendage clipping. Per review of chart, a follow-up quality assurance monitor chassis revealed no recurrent atrial fibrillation, and her anticoagulation had subsequently been discontinued. She also previously been treated with metoprolol which was discontinued in 2016, and a course of amiodarone. The patient describes that for 3 days, she has been nauseous, and has been unable to keep anything down including her pills. She presented to primary care, EKG revealed atrial fibrillation with rapid ventricular response and PVCs with right bundle branch block, bifascicular block pattern. She was referred to the emergency room, with ongoing atrial fibrillation with mildly elevated ventricular rate noted. She received a dose of IV metoprolol, and has been placed on IV heparin. Shortly before I had seen the patient in the PCU she had converted spontaneously to sinus rhythm at 1739. She recently tried to eat some Jell-O and drink some tea however had recurrent nausea. Allergies Allergy/AdvReac Type Severity Reaction Status Date / Time simvastatin Allergy Unknown ELEVATED Verified 07/15/20 11:49 LIVER ENZYMES oxaprozin AdvReac Intermediate MAKES FEEL Verified 07/15/20 11:49 DEPRESSED Home Medications Medication Instructions Recorded Confirmed Type alendronate 70 mg PO WK 07/15/20 07/15/20 History magnesium oxide 1,000 mg PO TID 07/15/20 07/15/20 History potassium chloride 20 meq PO DAILY 07/15/20 07/15/20 History pravastatin 80 mg PO DAILY 07/15/20 07/15/20 History prednisolone acetate 1 drp OPHTHALMIC (EYE) UD 07/15/20 07/15/20 History sod phos di, mono-K phos mono 2 tab PO TID 07/15/20 07/15/20 History [Phospha 250 Neutral] solifenacin 5 mg PO DAILY 07/15/20 07/15/20 History Patient History Medical History GERD (gastroesophageal reflux disease) HLD (hyperlipidemia) HTN (hypertension) MGUS (monoclonal gammopathy of unknown significance) No pertinent family history Surgical History H/O aortic valve replacement Social History Smoking Status: Never smoker Second Hand Exposure: No; Do You Dip or Chew Tobacco: No; Tobacco Cessation Education Requested by Patient: No Hx Alcohol Use: Yes Alcohol type: hard liquor Hx Substance Use: No Preferred Language: Mauritian Communication Ability: Effective Data Integrity Specialist Required: No Beliefs That Will Affect Care: None Current Living Situation: Family Other Information That Helps Us Care for You: No Feels Safe at Home: Yes Safety Concerns: Feels Safe At This Time Assistive Devices: Cane, Glasses and Walker Review of Systems Review of Systems: All systems reviewed & are unremarkable except as noted in HPI & below Physical Exam Physical Exam: Temp Pulse Resp BP Pulse Ox 37.4 C 93 H 16 144/82 H 91 07/15/20 18:12 07/15/20 18:12 07/15/20 18:12 07/15/20 18:12 07/15/20 18:12 Constitutional: WD/WN, vitals as above Respiratory: normal respiratory effort, lungs clear to auscultation Cardiovascular: RRR, no murmur, no edema Gastrointestinal (Abdomen): normal bowel sounds, soft, nontender, no hepatosplenomegaly Neurologic: PERRL, EOMI, accommodation nl, no face palsy, no dysarthria Results & Data ([facility]) Vital Signs (Past 12 Hours) Vital Signs Temp Pulse Pulse Pulse Resp BP BP 07/15/20 18:12 37.4 C 93 H 16 07/15/20 17:09 110 H 18 170/77 H 07/15/20 16:00 89 18 198/100 H 07/15/20 14:00 100 H 18 182/110 H 07/15/20 12:50 103 H 18 178/98 H 07/15/20 11:39 07/15/20 10:54 37.5 C 119 H 18 147/84 H BP Pulse Ox 07/15/20 18:12 144/82 H 91 07/15/20 17:09 94 07/15/20 16:00 96 07/15/20 14:00 94 07/15/20 12:50 94 07/15/20 11:39 94 07/15/20 10:54 94 Laboratory Results Cardiac Enzymes 07/15/20 Range/Units 11:15 AST 15 (15-37) U/L Troponin I < 0.015 (0-0.045) ng/ml Coagulation 07/15/20 Range/Units 11:15 PT 11.2 (9.0-12.0) Seconds APTT 21.1 (21.0-31.0) Seconds CBC 07/15/20 Range/Units 11:15 WBC 10.58 (4.8-10.8) K/uL RBC 4.39 (4.2-5.4) M/uL Hgb 12.7 (12.0-16.0) g/dL Hct 38.9 (37-47) % Plt Count 218 (130-400) K/uL Neut # (Auto) 8.23 H (1.4-6.5) K/uL Lymph # (Auto) 1.53 (1.2-3.4) K/uL [place] # (Auto) 0.78 H (0.11-0.59) K/uL Eos # (Auto) 0.00 (0-0.5) K/uL Baso # (Auto) 0.02 (0-0.2) K/uL Comprehensive Metabolic Panel 07/15/20 Range/Units 11:15 Sodium 136 (136-145) mmol/L Potassium 2.8 L (3.5-5.1) mmol/L Chloride 100 (98-107) mmol/L Carbon Dioxide 29 (21-32) mmol/L BUN 21 H (7-18) mg/dl Creatinine 0.83 (0.6-1.2) mg/dl Glucose 101 H (70-99) mg/dl Calcium 8.7 (8.5-10.1) mg/dl Direct Bilirubin < 0.1 (0-0.2) mg/dl AST 15 (15-37) U/L ALT 15 (12-78) U/L Alkaline Phosphatase 74 (45-117) U/L Total Protein 9.2 H (6.4-8.2) gm/dl Albumin 3.1 L (3.4-5.0) gm/dl Intake and Output 07/15/20 07/15/20 07/15/20 06:59 14:59 22:59 Intake Total 1130.617 / 1130.617 Balance 1130.617 / 1130.617 Intake: IV 1130.617 / 1130.617 HEPARIN SODIUM/DEXTROSE 25,000 63.7 / 63.7 units In 500 ml @ 1,050 UNITS/ HR 21 mls/hr IV .[id number] STE[facility] Rx #:[id number] K RIDER / WTR 10 meq In 100 ml 200 / 200 @ 100 mls/hr IV Q1H STE[facility]IE Rx#: [id number] Phenergan 6.25 mg In Nss 50 ml 50.25 / 50.25 @ 201 mls/hr IV NOW STA Rx#: [id number] Nss 1000ML 1,000 ml @ 125 mls/ 816.667 / 816.667 hr IV .Q8H [facility] Rx#:[id number] Other: Weight 74.8 kg 73.57 kg Weight Measurement Method Chair Scale Built in [facility] Patient Weight 07/16/20 06:59 Weight 73.57 kg (1) Atrial fibrillation Atrial fibrillation type: unspecified Qualified Code(s): I48.91 - Unspecified atrial fibrillation
[2020-07-15] MEDS: POTASSIUM CHLORIDE 40 MEQ in SODIUM CHLORIDE 0.9% 1000ML 1,000 ML IV SCH (19:39)
[2020-07-15] MEDS: prednisoLONE acetate 1% OP SUSP 5 ML BTL OPB SCH (20:31)
[2020-07-15] MEDS: MAGNESIUM OXIDE 400 MG TAB PO SCH (20:32)
[2020-07-15] MEDS: POT PHOSPHATE MONOBASIC W/ SOD TAB PO SCH (20:33)
[2020-07-15] MEDS ORDERED: PROMETHAZINE HCL 12.5 MG in SODIUM CHLORIDE 0.9% 50 ML IV PRN (21:12)
[2020-07-15 21:27] LABS: Appearance Urine Clear (Clear); Bacteria Urine Automated Negative (Negative); Bilirubin Urine Negative (Negative); Blood Urine 1+ (Negative); Cast Urine Automated 0 /lpf (0-5); Color Urine Yellow; Epithelial Cell Urine Auto >30 /lpf (0-5); Glucose Urine UA Negative (Negative); Ketones Urine 1+ (Negative); Leukocyte Esterase Urine Trace (Negative); Nitrite Urine Negative (Negative); Protein Urine Negative (Negative); Specific Gravity Urine 1.038 (1.000-1.030); Urobilinogen Urine Negative (Negative)
[2020-07-16 00:51] LABS: Partial Thromboplastin Ratio 1.4; Partial Thromboplastin Time 37.4 Seconds (21.0-31.0)
[2020-07-16] MEDS ORDERED: HEPARIN IV BOLUS 5,000 UNITS in SYRINGE 0 ML IV ONE (01:15)
[2020-07-16] MEDS: POTASSIUM CHLORIDE 40 MEQ in SODIUM CHLORIDE 0.9% 1000ML 1,000 ML IV SCH ×2 (03:43→11:54)
[2020-07-16] MEDS ORDERED: ALENDRONATE SODIUM 70 MG TAB PO SCH (06:00)
[2020-07-16] MEDS: PRAVASTATIN SOD 40 MG TAB PO SCH (07:21)
[2020-07-16] MEDS: prednisoLONE acetate 1% OP SUSP 5 ML BTL OPB SCH (07:21)
[2020-07-16] MEDS: POT PHOSPHATE MONOBASIC W/ SOD TAB PO SCH ×3 (07:21→20:45)
[2020-07-16] MEDS: MAGNESIUM OXIDE 400 MG TAB PO SCH ×3 (07:21→20:45)
[2020-07-16 07:42] LABS: Hemoglobin 10.4 g/dL (12.0-16.0); Mean Corpuscular Hemoglobin 28.1 pg (25-34); Mean Corpuscular Hgb Conc 31.5 g/dL (32-36); Mean Corpuscular Volume 89.2 fL (80-100); Platelet Count 161 K/uL (130-400); RDW Coefficient of Variation 14.7 % (11.5-14.5); RDW Standard Deviation 48.3 fL (36.4-46.3); White Blood Count 7.46 K/uL (4.8-10.8)
[2020-07-16 07:43] LABS: Basophils # (auto) 0.03 K/uL (0-0.2); Basophils % (auto) 0.4 %; Eosinophils # (auto) 0.06 K/uL (0-0.5); Eosinophils % (auto) 0.8 %; Immature Granulocytes # (auto) 0.01 K/uL (0.00-0.02); Immature Granulocytes % (auto) 0.1 %; Lymphocytes # (auto) 1.63 K/uL (1.2-3.4); Lymphocytes % (auto) 21.8 %; Mean Platelet Volume 10.3 fL (7.4-10.4); Monocytes # (auto) 0.76 K/uL (0.11-0.59); Monocytes % (auto) 10.2 %; Neutrophils # (auto) 4.97 K/uL (1.4-6.5); Neutrophils % (auto) 66.7 %
[2020-07-16 08:05] LABS: Partial Thromboplastin Ratio 3.8
[2020-07-16 08:11] LABS: Magnesium 1.9 mg/dl (1.8-2.4); Phosphorus 2.1 mg/dl (2.5-4.9)
[2020-07-16 08:13] LABS: Partial Thromboplastin Time 100.5 Seconds (21.0-31.0)
[2020-07-16] MEDS ORDERED: POTASSIUM CHLORIDE CRTAB 20 MEQ TABCR PO SCH ×2 (09:00)
--- NOTE | 2020-07-16 12:59 | Electrocardiogram Report ---
Test Reason : Blood Pressure : / mmHG Vent. Rate : 090 BPM Atrial Rate : 090 BPM P-R Int : 244 ms QRS Dur : 158 ms QT Int : 412 ms P-R-T Axes : 073 -37 038 degrees QTc Int : 504 ms Sinus rhythm with 1st degree A-V block Left axis deviation Right bundle branch block Left ventricular hypertrophy with repolarization abnormality Abnormal ECG When compared with ECG of 15-JUL-2020 11:07, Sinus rhythm has replaced Atrial fibrillation Confirmed by John Roca ([id number]) on 07/16/2020 12:59:02 PM Referred By: REFERRED SELF Confirmed By:John Roca
--- NOTE | 2020-07-16 13:00 | Cardiology Progress Note ---
Date of Service July 16, 2020 Assessment & Plan (1) Atrial fibrillation: Presented with recurrent atrial fibrillation, converted back to sinus rhythm the evening of 07/15/2020. Echocardiogram reveals normal LVEF, moderate concentric left ventricular hypertrophy, normal prosthetic aortic valve function. Patient with chronic right bundle branch block, intermittent bifascicular block pattern. Start cautious metoprolol tartrate 12.5 mg twice daily as tolerated from a nausea standpoint. Continue Heparin infusion from a stroke prophylaxis standpoint until hospital course determined with regards to procedures. We will need to determine [id number] cost for Yadiel. Has history of surgical left atrial appendage ligation, but her insert [id number] VASc score is high and therefore I think systemic anticoagulation is indicated. (2) Hypokalemia: Repeat labs ordered (3) Nausea and vomiting: Mildly improved, the etiology is yet to be determined. Admission and Anticipated Discharge Date Admission Date: July 15, 2020 Subjective Remains in sinus rhythm. Nauseousness perhaps a little bit better this morning, was able to keep her morning medications down. Review of Systems Review of Systems: All systems reviewed & are unremarkable except as noted in HPI & below Physical Exam Physical Exam: Temp Pulse Resp BP Pulse Ox 37.5 C 72 18 159/86 H 97 07/16/20 10:51 07/16/20 10:51 07/16/20 10:51 07/16/20 10:51 07/16/20 10:51 Constitutional: WD/WN, vitals as above Respiratory: normal respiratory effort, lungs clear to auscultation Cardiovascular: RRR, no murmur, no edema Vessels: no JVD Extremities: no edema Gastrointestinal (Abdomen): normal bowel sounds, soft, nontender, no hepato splenomegaly Neurologic: PERRL, EOMI, accommodation nl, no face palsy, no dysarthria Results & Data ([facility]) Vital Signs (Past 12 Hours) Vital Signs Temp Pulse Resp BP Pulse Ox 07/16/20 10:51 37.5 C 72 18 159/86 H 97 07/16/20 08:09 37.1 C 76 18 152/69 H 95 07/16/20 03:06 37.3 C 82 18 149/80 H 94 Laboratory Results Coagulation 07/16/20 07/16/20 Range/Units 00:27 07:13 APTT 37.4 H 100.5 H* (21.0-31.0) Seconds CBC 07/16/20 Range/Units 07:13 WBC 7.46 (4.8-10.8) K/uL RBC 3.70 L (4.2-5.4) M/uL Hgb 10.4 L (12.0-16.0) g/dL Hct 33.0 L (37-47) % Plt Count 161 (130-400) K/uL Neut # (Auto) 4.97 (1.4-6.5) K/uL Lymph # (Auto) 1.63 (1.2-3.4) K/uL [place] # (Auto) 0.76 H (0.11-0.59) K/uL Eos # (Auto) 0.06 (0-0.5) K/uL Baso # (Auto) 0.03 (0-0.2) K/uL Intake and Output 07/15/20 07/16/20 07/16/20 22:59 06:59 14:59 Intake Total 1181.117 / 2553.750 1372.633 / 2553.750 1056.417 / 1056.417 Output Total 450 / 450 Balance 731.117 / 2103.750 1372.633 / 2103.750 1056.417 / 1056.417 Intake: IV 1181.117 / 2453.750 1272.633 / 2453.750 1056.417 / 1056.417 HEPARIN SODIUM/DEXTROSE 25,000 63.7 / 328.00 264.30 / 328.00 36.417 / 36.417 units In 500 ml @ 1,050 UNITS/ HR 21 mls/hr IV .[id number] [facility] Rx #:[id number] K RIDER / WTR 10 meq In 100 ml 200 / 200 @ 100 mls/hr IV Q1H [facility] Rx#: [id number] KCl 40 Meq In Nss 1000ML 1,000 1008.333 / 7655.680 7966 / 1020 ml @ 125 mls/hr IV .[id number] [facility] Rx#:[id number] Phenergan 12.5 mg In Nss 50 ml 100.75 / 100.75 @ 202 mls/hr IV Q6H PRN Rx#: [id number] Nss 1000ML 1,000 ml @ 125 mls/ 816.667 / 816.667 hr IV .Q8H [facility] Rx#:[id number] Oral 100 / 100 Output: Urine 450 / 450 Other: Weight 73.57 kg 74.9 kg Weight Measurement Method Built in [facility] (1) Atrial fibrillation Atrial fibrillation type: unspecified Qualified Code(s): I48.91 - Unspecified atrial fibrillation
--- NOTE | 2020-07-16 13:03 | Hospitalist Progress Note ---
Date of Service July 16, 2020 Assessment & Plan (1) Nausea and vomiting: Currently tolerating clear liquid diet. Zofran as needed for nausea. Will advance to full liquid diet today. Discontinue IV fluids. Electrolytes are okay, calcium is improved. Obtain BMP in the morning. (2) Atrial fibrillation with RVR: Currently patient converted to normal sinus rhythm. Rate is controlled. Appreciate cardiology input. Transthoracic echo with a EF of 60%. Continue with heparin infusion for now. Will transition to NOAC prior to discharge. Continue Lopressor 12.5 mg twice daily. (3) Aortic stenosis, severe: - As above, noted on exam (4) H/O aortic valve replacement: -prosthetic valve done at [facility] [place] Placed September 2016 -follows with Dr. Salomon as outpt. (5) HTN (hypertension): Pressures remain elevated in the 160s. Continue with metoprolol for now. If patient continues to remain elevated, will add a second agent or go up on metoprolol. (6) HLD (hyperlipidemia): - Cont pravastatin 80 mg daily (7) Vertigo: - hx of such, stable (8) MGUS (monoclonal gammopathy of unknown significance): - Recent diagnosis, follows with [facility] heme/onc. Had recent bone marrow biopsy which was reassuring. PCP planning to follow monthly labs done at [facility] and considering yearly bone marrow biopsy. (9) Osteoarthritis: - Hx of such - Vit D on hold since hospitalization earlier this year. Was told by technician assistant to DC this medication. (10) GERD (gastroesophageal reflux disease): - Recently taken off omeprazole (11) Hypokalemia: Improved, potassium at 3.3 today. (12) DVT prophylaxis: - teds, heparin as above CODE: Full code Dispo: From home, likely to remain in the hospital x 2 days. Admission and Anticipated Discharge Date Admission Date: July 15, 2020 Subjective Patient is doing okay this morning. No further episodes of vomiting. Did have episodes of nausea last evening. However, have been tolerating clear liquid diet. Currently her rate is controlled. Denies any chest pain, shortness of breath or any palpitations. Denies any dizziness. Review of Systems Review of Systems: All systems reviewed & are unremarkable except as noted in HPI & below Physical Exam Physical Exam: General: A&Ox3 HENT: NCAT, MMM, EOMI Eyes: PERRLA Neck: Supple, normal range of motion CVS: normal rate and rhythm Resp: b/l breath sound Abdomen: Soft, non-tender Extremities: absence of edema Neuro: face symmetric, no focal deficits appreciated Skin: warm and dry, no rashes/lesions/errythema MSK: normal ROM, no joint swelling/erythema Results & Data Results & Data ([facility]) Vital Signs (Past 12 Hours) Vital Signs Temp Pulse Resp BP Pulse Ox 07/16/20 10:51 37.5 C 72 18 159/86 H 97 07/16/20 08:09 37.1 C 76 18 152/69 H 95 07/16/20 03:06 37.3 C 82 18 149/80 H 94
--- NOTE | 2020-07-16 13:41 | Electrocardiogram Report ---
Test Reason : Blood Pressure : / mmHG Vent. Rate : 080 BPM Atrial Rate : 080 BPM P-R Int : 208 ms QRS Dur : 156 ms QT Int : 418 ms P-R-T Axes : 073 -33 012 degrees QTc Int : 482 ms Normal sinus rhythm Left axis deviation Right bundle branch block Minimal voltage criteria for LVH, may be normal variant Abnormal ECG When compared with ECG of 15-JUL-2020 21:58, (unconfirmed) IA interval has decreased Confirmed by John Roca ([id number]) on 07/16/2020 1:41:05 PM Referred By: REFERRED SELF Confirmed By:John Roca
[2020-07-16 13:52] LABS: Albumin Level 2.6 gm/dl (3.4-5.0); BUN Creatinine Ratio 18.6 (10-20); Calcium 7.7 mg/dl (8.5-10.1); Est GFR (African American) 94.4; Est GFR (Non-African American) 81.5; Magnesium 1.9 mg/dl (1.8-2.4); Potassium 3.3 mmol/L (3.5-5.1)
[2020-07-16 13:55] LABS: Albumin Globulin Ratio 0.5 (0.9-2); Bilirubin,Total 0.4 mg/dl (0.2-1); Globulin 4.9 gm/dl (2.5-4.0); Total Protein 7.5 gm/dl (6.4-8.2)
[2020-07-16] MEDS: METOPROLOL TARTRATE 25 MG TAB PO SCH ×2 (14:27→20:45)
[2020-07-16 15:57] LABS: Partial Thromboplastin Ratio 1.9
[2020-07-16 16:00] LABS: Partial Thromboplastin Time 48.7 Seconds (21.0-31.0)
[2020-07-16] MEDS: HEPARIN SODIUM/DEXTROSE 25,000 UNITS/500 ML BAG IV SCH (18:23)
[2020-07-16] MEDS ORDERED: POTASSIUM CHLORIDE CRTAB 20 MEQ TABCR PO STA (19:17)
[2020-07-16] MEDS ORDERED: POTASSIUM CHLORIDE 20 MEQ/15 ML UDC PO ONE (20:45)
[2020-07-16] MEDS ORDERED: PROMETHAZINE HCL 12.5 MG in SODIUM CHLORIDE 0.9% 50 ML IV PRN (20:55)
[2020-07-17 06:42] LABS: Hematocrit (blood only) 33.7 % (37-47); Hemoglobin 11.1 g/dL (12.0-16.0); Mean Corpuscular Hemoglobin 29.1 pg (25-34); Mean Corpuscular Hgb Conc 32.9 g/dL (32-36); Mean Corpuscular Volume 88.5 fL (80-100); Mean Platelet Volume 10.2 fL (7.4-10.4); Platelet Count 167 K/uL (130-400); RDW Coefficient of Variation 14.5 % (11.5-14.5); Red Blood Count 3.81 M/uL (4.2-5.4); White Blood Count 6.47 K/uL (4.8-10.8)
[2020-07-17 07:13] LABS: Partial Thromboplastin Ratio 2.1
[2020-07-17 07:19] LABS: Partial Thromboplastin Time 54.1 Seconds (21.0-31.0)
[2020-07-17 07:23] LABS: BUN Creatinine Ratio 13.1 (10-20); Calcium 7.8 mg/dl (8.5-10.1); Creatinine Clr Calc Pharmacy 77.2 ml/min; Est GFR (African American) 103.1; Magnesium 1.8 mg/dl (1.8-2.4)
[2020-07-17] MEDS ORDERED: POTASSIUM CHLORIDE CRTAB 20 MEQ TABCR PO STA (08:01)
[2020-07-17] MEDS: POTASSIUM CHLORIDE 20 MEQ/15 ML UDC PO SCH (08:05)
[2020-07-17] MEDS ORDERED: POTASSIUM CHLORIDE 20 MEQ/15 ML UDC PO STA (08:05)
[2020-07-17] MEDS: MAGNESIUM OXIDE 400 MG TAB PO SCH ×3 (08:09→20:34)
[2020-07-17] MEDS: POT PHOSPHATE MONOBASIC W/ SOD TAB PO SCH ×3 (08:09→20:35)
[2020-07-17] MEDS: METOPROLOL TARTRATE 25 MG TAB PO SCH ×2 (08:09→20:35)
[2020-07-17] MEDS: PRAVASTATIN SOD 40 MG TAB PO SCH (08:09)
[2020-07-17] MEDS: prednisoLONE acetate 1% OP SUSP 5 ML BTL OPB SCH (08:10)
[2020-07-17] MEDS ORDERED: POTASSIUM CHLORIDE CRTAB 20 MEQ TABCR PO ONE (14:30)
[2020-07-17] MEDS ORDERED: APIXABAN 5 MG TABLET PO SCH (14:30)
--- NOTE | 2020-07-17 14:57 | Hospitalist Progress Note ---
Date of Service July 17, 2020 Assessment & Plan (1) Nausea and vomiting: Possibly gastroenteritis. Tolerating liquid diet. Zofran as needed for nausea. Will advance diet to solids today. Patient reports she has burning sensation p.o. intake. Reports she was on Prilosec at one point but she stopped involuntarily. Start patient on Protonix 40 mg now. She also reported chest discomfort with swallowing. If it persists after starting Protonix, would recommend GI evaluation. (2) Atrial fibrillation with RVR: Currently patient converted to normal sinus rhythm. Rate is controlled. Appreciate cardiology input. Transthoracic echo with a EF of 60%. Continue Lopressor 12.5 mg twice daily. Rate is controlled. Continue heparin infusion today. Start patient on Eliquis 5 mg twice daily. (3) Aortic stenosis, severe: - As above, noted on exam (4) H/O aortic valve replacement: [place]st[place] [facility] [place] 2016 -follows with Dr. Salomon as outpt. (5) HTN (hypertension): Pressures remain elevated in the 160s. Continue with metoprolol for now. If patient continues to remain elevated, will add a second agent or go up on metoprolol. (6) HLD (hyperlipidemia): - Cont pravastatin 80 mg daily (7) Vertigo: - hx of such, stable (8) MGUS (monoclonal gammopathy of unknown significance): - Recent diagnosis, follows with [facility] heme/onc. Had recent bone marrow biopsy which was reassuring. PCP planning to follow monthly labs done at [facility] and considering yearly bone marrow biopsy. (9) Osteoarthritis: - Hx of such - Vit D on hold since hospitalization earlier this year. Was told by proposal writer to DC this medication. (10) GERD (gastroesophageal reflux disease): - Recently taken off omeprazole (11) Hypokalemia: Improved, potassium at 3.0 today. P.o. ordered (12) DVT prophylaxis: - teds, heparin as above CODE: Full code Dispo: From home, likely to remain in the hospital x 2 days. Admission and Anticipated Discharge Date Admission Date: July 15, 2020 Subjective Patient tolerated liquid diet but reports discomfort with eating and chest burning. No further episodes of vomiting. Denies any abdominal pain. Denies any diarrhea or dysuria. Review of Systems Review of Systems: All systems reviewed & are unremarkable except as noted in HPI & below Physical Exam Physical Exam: General: A&Ox3 HENT: NCAT, MMM, EOMI Eyes: PERRLA Neck: Supple, normal range of motion CVS: normal rate and rhythm Resp: b/l breath sound Abdomen: Soft, non-tender Extremities: absence of edema Neuro: face symmetric, no focal deficits appreciated Skin: warm and dry, no rashes/lesions/errythema MSK: normal ROM, no joint swelling/erythema Results & Data Results & Data ([facility]) Vital Signs (Past 12 Hours) Vital Signs Temp Pulse Pulse Resp BP Pulse Ox 07/17/20 12:07 36.8 C 80 18 126/75 94 07/17/20 09:04 64 07/17/20 07:42 36.6 C 66 19 151/71 H 96
[2020-07-17] MEDS: PANTOprazole 40 MG TAB PO SCH (17:00)
--- NOTE | 2020-07-17 17:13 | Cardiology Progress Note ---
Date of Service July 17, 2020 Assessment & Plan (1) Nausea and vomiting: At the time of my assessment, she noted recurrent discomfort behind her breastbone with swallowing pieces of her chicken. This mimics the symptoms that prompted her to have poor oral intake for several days prior to presenting to the hospital. She has been on alendronate since December, per her outpatient records. This medication can be implicated in causing esophagitis. -At this time will discontinue alendronate, and will consider alternative treatment of osteoporosis. -Consult gastroenterology, for consideration of EGD. N.p.o. after midnight. The patient did however receive a single dose of Eliquis today 07/17/2020 at 1436. -We will discuss with her EGD is felt to be indicated with GI tomorrow, and of course the timing of this. (2) Acute hypokalemia: Patient received 80 mEq of oral potassium today. Repeat metabolic panel tomorrow. Remains in sinus rhythm, 4 beat run of nonsustained VT noted last night at 2134. (3) Atrial fibrillation: Remains in sinus rhythm. Heparin discontinued which I think is reasonable. After procedure course determined, will consider resuming Eliquis. She is 82 years old, but weighs more than 60 kg, and her creatinine is less than 1.5, and therefore Eliquis 5 mg twice daily is the appropriate dose. Continue metoprolol tartrate 12.5 mg twice daily. Admission and Anticipated Discharge Date Admission Date: July 15, 2020 Subjective Patient felt her nauseousness was improved this morning, but she had a few bites for lunch, and it returned. Remains in sinus rhythm. Heparin infusing. Physical Exam Physical Exam: Temp Pulse Resp BP Pulse Ox 36.8 C 80 18 126/75 94 07/17/20 12:07 07/17/20 12:07 07/17/20 12:07 07/17/20 12:07 07/17/20 12:07 Constitutional: WD/WN, vitals as above Respiratory: normal respiratory effort, lungs clear to auscultation Cardiovascular: RRR, no murmur, no edema Gastrointestinal (Abdomen): normal bowel sounds, soft, nontender, no hepatosplenomegaly Neurologic: PERRL, EOMI, accommodation nl, no face palsy, no dysarthria Results & Data ([facility]) Vital Signs (Past 12 Hours) Vital Signs Temp Pulse Pulse Resp BP Pulse Ox 07/17/20 12:07 36.8 C 80 18 126/75 94 07/17/20 09:04 64 07/17/20 07:42 36.6 C 66 19 151/71 H 96 Laboratory Results Coagulation 07/17/20 Range/Units 06:15 APTT 54.1 H* (21.0-31.0) Seconds CBC 07/17/20 Range/Units 06:15 WBC 6.47 (4.8-10.8) K/uL RBC 3.81 L (4.2-5.4) M/uL Hgb 11.1 L (12.0-16.0) g/dL Hct 33.7 L (37-47) % Plt Count 167 (130-400) K/uL Comprehensive Metabolic Panel 07/17/20 Range/Units 06:15 Sodium 140 (136-145) mmol/L Potassium 3.0 L (3.5-5.1) mmol/L Chloride 108 H (98-107) mmol/L Carbon Dioxide 27 (21-32) mmol/L BUN 7 D (7-18) mg/dl Creatinine 0.52 L (0.6-1.2) mg/dl Glucose 84 (70-99) mg/dl Calcium 7.8 L (8.5-10.1) mg/dl Intake and Output 07/17/20 07/17/20 07/17/20 06:59 14:59 22:59 Intake Total 980.90 / 980.90 Balance 980.90 / 980.90 Intake: IV 340.90 / 340.90 HEPARIN SODIUM/DEXTROSE 25,000 340.90 / 340.90 units In 500 ml @ 1,050 UNITS/ HR 21 mls/hr IV .[id number] [facility] Rx #:[id number] Oral 640 / 640 Other: # Unmeasured Voids 5 2 (1) Atrial fibrillation Atrial fibrillation type: unspecified Qualified Code(s): I48.91 - Unspecified atrial fibrillation
[2020-07-18 06:55] LABS: Hematocrit (blood only) 33.3 % (37-47); Mean Corpuscular Hemoglobin 28.9 pg (25-34); Mean Corpuscular Volume 87.4 fL (80-100); Mean Platelet Volume 10.1 fL (7.4-10.4); Platelet Count 142 K/uL (130-400); RDW Coefficient of Variation 14.5 % (11.5-14.5); RDW Standard Deviation 46.3 fL (36.4-46.3); Red Blood Count 3.81 M/uL (4.2-5.4)
[2020-07-18 07:11] LABS: INR 1.2 (0.9-1.1); Partial Thromboplastin Time 25.3 Seconds (21.0-31.0); Prothrombin Time 11.9 Seconds (9.0-12.0)
[2020-07-18 07:29] LABS: BUN Creatinine Ratio 16.9 (10-20); Calcium 7.8 mg/dl (8.5-10.1); Creatinine Clr Calc Pharmacy 72.7 ml/min; Est GFR (African American) 101.2; Est GFR (Non-African American) 87.4; Potassium 3.3 mmol/L (3.5-5.1)
[2020-07-18] MEDS: METOPROLOL TARTRATE 25 MG TAB PO SCH ×2 (08:01→19:22)
[2020-07-18] MEDS: PANTOprazole 40 MG TAB PO SCH ×2 (08:01→19:21)
[2020-07-18] MEDS: MAGNESIUM OXIDE 400 MG TAB PO SCH ×3 (08:01→19:20)
[2020-07-18] MEDS: PRAVASTATIN SOD 40 MG TAB PO SCH (08:02)
[2020-07-18] MEDS: POT PHOSPHATE MONOBASIC W/ SOD TAB PO SCH ×3 (08:02→19:20)
[2020-07-18] MEDS: prednisoLONE acetate 1% OP SUSP 5 ML BTL OPB SCH (08:02)
[2020-07-18] MEDS: POTASSIUM CHLORIDE 20 MEQ/15 ML UDC PO SCH ×2 (08:02→20:32)
--- NOTE | 2020-07-18 11:43 | Gastrointestinal Consultation ---
Date of Consultation July 18, 2020 Assessment & Plan (1) Nausea & vomiting: (2) Dysphagia: Pt is a 84 y/o female seen for dysphagia, n/v symptoms. Hx of large hiatal hernia and does take Alendronate weekly for years. DDx: esophagitis, PUD, gastritis, Hpylori, esophageal dysmotility, gastroparesis. - NPO for EGD eval with Dr. Shi today - Increase Protonix to 40mg BID - ? IPMN on pancreas seen on CT scan. Consider EUS eval in outpt setting. - ? 2.5cm polyp vs stool in transverse colon seen on CT scan. Consider colonoscopy in outpt setting vs repeat CT scan. Supervising Physician Co-Signing Physician Notes I performed a history and physical examination of the patient today, including specifically on physical exam - soft abdomen. I have discussed the patient's management with the advanced practitioner. Please refer to the nurse practitioner's note for the documented findings and plan of care. EGD today History of Present Illness Reason for Consultation: Eval for esophagitis Requesting Physician: Dr. Shon Shah Attending Physician: Dr. José Shi History of Present Illness Pt is a 84 y/o female w PMHx as noted below who is admitted w weakness, n/v since last week. No hematemesis, coffee ground emesis. She report associated dysphagia at times. Denies any increased heartburn or reflux, changes in bowel habits including any rectal bleeding. Also no unexpected weight loss. Labs reviewed - normal LFTs, lipase. + mild anemia, no signs of chronic renal disease. CT abd/pelvis showed signs of large hiatal hernia w sliding/paraesophageal components. No signs of bowel obstruction, + 6mm hyperdense focus on gallbladder (polyp vs adenomyomatosis), 1cm hypodensity of pancreas head ? IPMN, no pancreatic ductal dilation. She does take Alendronate 70mg PO weekly for years. She denies hx of PUD, or GI cancers. Previous EGD/Colonoscopy done in [place]? Denies NSAIDs, ETOH, tobacco, steroids Allergies Allergy/AdvReac Type Severity Reaction Status Date / Time simvastatin Allergy Unknown ELEVATED Verified 07/15/20 11:49 LIVER ENZYMES oxaprozin AdvReac Intermediate MAKES FEEL Verified 07/15/20 11:49 DEPRESSED Home Medications Medication Instructions Recorded Confirmed Type alendronate 70 mg PO WK 07/15/20 07/15/20 History magnesium oxide 1,000 mg PO TID 07/15/20 07/15/20 History potassium chloride 20 meq PO DAILY 07/15/20 07/15/20 History pravastatin 80 mg PO DAILY 07/15/20 07/15/20 History prednisolone acetate 1 drp OPHTHALMIC (EYE) UD 07/15/20 07/15/20 History sod phos di, mono-K phos mono 2 tab PO TID 07/15/20 07/15/20 History [Phospha 250 Neutral] solifenacin 5 mg PO DAILY 07/15/20 07/15/20 History Patient History Medical History GERD (gastroesophageal reflux disease) HLD (hyperlipidemia) HTN (hypertension) MGUS (monoclonal gammopathy of unknown significance) No pertinent family history Surgical History H/O aortic valve replacement Social History Smoking Status: Never smoker Second Hand Exposure: No; Do You Dip or Chew Tobacco: No; Tobacco Cessation Education Requested by Patient: No Hx Alcohol Use: Yes Alcohol type: hard liquor Hx Substance Use: No Preferred Language: Ukrainian Communication Ability: Effective Network Services Project Manager Required: No Beliefs That Will Affect Care: None Current Living Situation: Family Other Information That Helps Us Care for You: No Feels Safe at Home: Yes Safety Concerns: Feels Safe At This Time Assistive Devices: None Review of Systems Review of Systems: All systems reviewed & are unremarkable except as noted in HPI & below Physical Exam Constitutional: WD/WN, vitals as above well groomed, cooperative and comfortable Eyes: PERRL, conjunctivae normal, anicteric sclerae ENMT: external ear and nose normal, oropharynx normal Respiratory: normal respiratory effort, lungs clear to auscultation Cardiovascular: RRR, no murmur, no edema Gastrointestinal (Abdomen): normal bowel sounds, soft, nontender, no hepatosplenomegaly Skin: no rashes, warm and dry no jaundice Psychiatric: A+Ox3, euthymic affect Lymphatic: no lymphedema Results & Data ([facility]) Vital Signs (Past 12 Hours) Vital Signs Temp Pulse Pulse Resp BP BP Pulse Ox 07/18/20 08:00 67 07/18/20 07:42 37.1 C 68 18 134/77 98 07/18/20 04:12 36.8 C 61 20 156/76 H 96
--- NOTE | 2020-07-18 12:31 | Anesthesiology Consultation ---
Date of Service July 18, 2020 Assessment & Plan Chart Review Chart Review: Acceptable Risk for Surgery and Patient NOT seen in Pre Admission Testing Consults Requested none ASA ASA4 Proposed Anesthesia Anesthesia Type: MAC Additional Comments: covid test negative History Surgery Operation Date: 07/18/20 15:45 Proposed Procedures p Esophagogastroduodenoscopy Dr Shi - José Shi MD Height/Weight Height: 5 ft 1 in Weight: 74.3 kg Allergies Allergy/AdvReac Type Severity Reaction Status Date / Time simvastatin Allergy Unknown ELEVATED Verified 07/15/20 11:49 LIVER ENZYMES oxaprozin AdvReac Intermediate MAKES FEEL Verified 07/15/20 11:49 DEPRESSED Medications Home Medications Medication Instructions Recorded Confirmed Last Taken alendronate 70 mg PO WK 07/15/20 07/15/20 Unknown magnesium oxide 1,000 mg PO TID 07/15/20 07/15/20 Unknown potassium chloride 20 meq PO DAILY 07/15/20 07/15/20 Unknown pravastatin 80 mg PO DAILY 07/15/20 07/15/20 Unknown prednisolone acetate 1 drp OPHTHALMIC (EYE) UD 07/15/20 07/15/20 Unknown sod phos di, mono-K phos mono 2 tab PO TID 07/15/20 07/15/20 Unknown [Phospha 250 Neutral] solifenacin 5 mg PO DAILY 07/15/20 07/15/20 Unknown Active Medications Generic Name Dose Route Start Last Admin Trade Name Freq PRN Reason Stop Dose Admin Promethazine HCl 12.5 mg/ 50.5 mls @ 202 mls/hr 07/15/20 21:12 07/15/20 22:45 Sodium Chloride IV 08/14/20 21:11 Infused Q6H PRN Infusion Nausea And Vomiting Magnesium Oxide 400 mg 07/15/20 21:00 07/18/20 08:01 Magnesium Oxide 400 Mg Tab PO 08/14/20 20:59 400 mg TID STEPHANIE Administration Protocol Metoprolol Tartrate 12.5 mg 07/16/20 13:15 07/18/20 08:01 Metoprolol Tartrate 25 Mg Tab PO 08/15/20 13:14 12.5 mg BID STEPHANIE Administration Potassium Chloride 20 meq 07/17/20 09:00 07/18/20 08:02 Potassium Chloride 20 Meq/15 Ml Udc PO 08/16/20 08:59 20 meq DAILY STEPHANIE Administration Potassium Phosphate 2 tab 07/15/20 21:00 07/18/20 08:02 Pot Phosphate Monobasic W/ Sod Tab PO 08/14/20 20:59 2 tab TID STEPHANIE Administration Pravastatin Sodium 80 mg 07/16/20 09:00 07/18/20 08:02 Pravastatin Sod 40 Mg Tab PO 08/15/20 08:59 80 mg DAILY STEPHANIE Administration Prednisolone Acetate 1 drops 07/15/20 20:00 07/18/20 08:02 Prednisolone Acetate 1% Op Susp 5 Ml Btl OPB 08/14/20 19:59 1 drops DAILY STEPHANIE Administration Past Medical History Medical History GERD (gastroesophageal reflux disease) HLD (hyperlipidemia) HTN (hypertension) MGUS (monoclonal gammopathy of unknown significance) No pertinent family history Exercise / Class Metabolic Activity II 4-5 Yardwork/Stairs/Walk up hill Past Surgical History Surgical History H/O aortic valve replacement Past Anesthesia History No Hx of Anesthesia Complications and No Family Hx of Anesthesia Complications History of PONV No Hx of PONV and No Hx of Motion Sickness Social History Smoking Status: Never smoker Do You Dip or Chew Tobacco: No Hx Alcohol Use: Yes Alcohol type: hard liquor alcohol intake frequency: holidays/special occasions only Alcohol Intake Frequency Comment: [employer] Hx Substance Use: No substance use type: does not use Physical Exam Vital Signs Last Vital Signs Temp 36.7 C 07/18/20 11:43 Pulse 61 07/18/20 11:43 Resp 16 07/18/20 11:43 BP 126/80 07/18/20 11:43 Pulse Ox 97 07/18/20 11:43 Testing Laboratory Results 07/18/20 06:22 07/18/20 06:22 PT 11.9 Seconds (9.0-12.0) 07/18/20 06:22 INR 1.2 (0.9-1.1) H 07/18/20 06:22 APTT 25.3 Seconds (21.0-31.0) 07/18/20 06:22 Urine Color Yellow 07/15/20 21:12 Urine Appearance Clear (Clear) 07/15/20 21:12 Urine pH 8.0 (4.5-7.5) H 07/15/20 21:12 Ur Specific [place] 1.038 (1.000-1.030) H 07/15/20 21:12 Urine Protein Negative (Negative) 07/15/20 21:12 Urine Glucose (UA) Negative (Negative) 07/15/20 21:12 Urine Ketones 1+ (Negative) H 07/15/20 21:12 Urine Nitrite Negative (Negative) 07/15/20 21:12 Ur Leukocyte Esterase Trace (Negative) H 07/15/20 21:12 Urine WBC (Auto) 1-5 /hpf (0-5) 07/15/20 21:12 Urine RBC (Auto) 5-10 /hpf (0-4) H 07/15/20 21:12 U Hyaline Cast (Auto) 0 /lpf (0-5) 07/15/20 21:12 U Epithel Cells (Auto) >30 /lpf (0-5) H 07/15/20 21:12 Urine Bacteria (Auto) Negative (Negative) 07/15/20 21:12 Electrocardiogram Date: 07/16/20 Findings: + NSR @ (at 80;LAD;LVH) and + RBBB Chest X-Ray Date: 07/15/20 Findings: + cardiomegaly, + atherosclerosis of thoracic aorta and + other (large H/H) Echocardiogram Date: 07/16/20 EF: 60% LV Function: normal RWMA: + none Other Findings: + atrial enlargement (lLA mildly enlarged), + LVH (moderate) and + diastolic dysfunction (Grade 2) Valvular Disease: + MR (mild) and + pertinent finding (Normal functioning Bioprosthetic AV) mild TR
[2020-07-18] MEDS ORDERED: ATROPINE SULFATE 0.1 MG/ML 10ML SYR IV PRN (13:10)
[2020-07-18] MEDS ORDERED: ePHEDrine sulfate 50 MG/ML AMP IV PRN (13:10)
[2020-07-18] MEDS ORDERED: PROPOFOL IV EMULSION 10 MG/ML 20 ML VIAL IV ONE (13:25)
[2020-07-18] MEDS ORDERED: ONDANSETRON INJ 2 MG/ML 2 ML VIAL ONE (13:25)
[2020-07-18] MEDS ORDERED: LIDOCAINE HCL 2% 2 ML VIAL/AMP(20MG/ML) INFIL ONE (13:25)
--- NOTE | 2020-07-18 14:52 | GI REPORT ---
Patient Name: Shannon Salazar Procedure Date: 07/18/2020 1:24 PM Date of : 1935 Admit Type: Inpatient Age: 84 Gender: Female Attending MD: José Shi MD Procedure: Upper GI endoscopy Providers: José Shi MD Referring MD: Noah Schneider Indications: Dysphagia, Nausea Medicines: Propofol per Anesthesia Complications: No immediate complications. Estimated Blood Loss: Estimated blood loss: none. Procedure: Pre-Anesthesia Assessment: - Prior to the procedure, a History and Physical was performed, and patient medications, allergies and sensitivities were reviewed. The patient's tolerance of previous anesthesia was reviewed. - The risks and benefits of the procedure and the sedation options and risks were discussed with the patient. All questions were answered and informed consent was obtained. - Patient identification and proposed procedure were verified prior to the procedure by the physician and the nurse. The procedure was verified in the procedure room. - Pre-procedure physical examination revealed no contraindications to sedation. After obtaining informed consent, the endoscope was passed under direct vision. Throughout the procedure, the patient's blood pressure, pulse, and oxygen saturations were monitored continuously. The Endoscope was introduced through the mouth, and advanced to the second part of duodenum. The upper GI endoscopy was accomplished without difficulty. The patient tolerated the procedure well. Findings: Esophagitis with no bleeding was found in the lower third of the esophagus. Biopsies were taken with a cold forceps for histology. Verification of patient identification for the specimen was done by the physician and nurse using the patient's name and date. No endoscopic abnormality was evident in the esophagus to explain the patient's complaint of dysphagia. A guidewire was placed and the scope was withdrawn. Dilation was performed with a Savary dilator with no resistance at 45 Fr. The dilation site was examined following endoscope reinsertion and showed no bleeding, mucosal tear or perforation. A large hiatal hernia was present. Mildly erythematous mucosa was found in the gastric antrum. Biopsies were taken with a cold forceps for Helicobacter pylori testing. Localized mild inflammation characterized by erythema was found in the duodenal bulb and in the second portion of the duodenum. Impression: - Reflux esophagitis. Biopsied. - No endoscopic esophageal abnormality to explain patient's dysphagia. Dilated. - Large hiatal hernia. - Erythematous mucosa in the antrum. Biopsied. - Duodenitis. Recommendation: - Return patient to [facility] for [facility] care. - Await pathology results. - Follow an antireflux regimen. - Use a proton pump inhibitor PO. - recall GI if needed. José Shi MD 07/18/2020 2:52:08 PM This report has been signed electronically. Note Initiated On: 07/18/2020 1:24 PM Number of Addenda: 0 I attest to the content of the Intraoperative Record and orders documented therein, exceptions below {[id number]}
--- NOTE | 2020-07-18 15:41 | Anesthesiology Progress Note ---
Date of Service July 18, 2020 Anesthesia Post Procedure Vital Signs Vital Signs: Temp Pulse Pulse Pulse Pulse Resp BP 07/18/20 15:17 36.7 C 64 17 07/18/20 14:39 66 18 166/79 H 07/18/20 14:23 67 178/73 H 07/18/20 14:06 74 74 16 161/78 H 07/18/20 13:03 37.2 C 62 18 07/18/20 11:43 36.7 C 61 16 07/18/20 08:00 67 07/18/20 07:42 37.1 C 68 18 134/77 07/18/20 04:12 36.8 C 61 20 07/17/20 23:35 36.9 C 71 18 07/17/20 20:17 36.5 C 85 18 136/85 07/17/20 16:00 36.6 C 69 18 148/82 H BP Pulse Ox 07/18/20 15:17 169/83 H 98 07/18/20 14:39 98 07/18/20 14:23 98 07/18/20 14:06 98 07/18/20 13:03 178/87 H 99 07/18/20 11:43 126/80 97 07/18/20 08:00 07/18/20 07:42 98 07/18/20 04:12 156/76 H 96 07/17/20 23:35 144/73 H 96 07/17/20 20:17 92 07/17/20 16:00 96 Transfer of Care Handoff Completed per policy Notes Mental Status: alert / awake / arousable and participated in evaluation Patient Amnestic to Procedure: Yes Nausea / Vomiting: adequately controlled Pain: adequately controlled Airway Patency, RR, SpO2: stable & adequate BP & HR: stable & adequate Hydration State: stable & adequate Anesthetic Complications: no major complications apparent and Pt Satisfied with anesthetic care
--- NOTE | 2020-07-18 16:46 | Gastroenterology Progress Note ---
Date of Service July 18, 2020 Assessment & Plan Admission and Anticipated Discharge Date Admission Date: July 15, 2020 Subjective Patient has what appears to be reflux esophagitis rather than pill induced and this is likely due to her large hiatal hernia however she is at a significant risk for pill induced esophagitis hence should inform PCP to use alternatives to Fosamax. She can resume Eliquis now. She can use liquid Potassium. She should be on PPI lifelong. Results & Data ([facility]) Vital Signs (Past 12 Hours) Vital Signs Temp Pulse Pulse Pulse Pulse Resp BP 07/18/20 16:35 68 07/18/20 15:17 36.7 C 64 17 07/18/20 14:39 66 18 166/79 H 07/18/20 14:23 67 178/73 H 07/18/20 14:06 74 74 16 161/78 H 07/18/20 13:03 37.2 C 62 18 07/18/20 11:43 36.7 C 61 16 07/18/20 08:00 67 07/18/20 07:42 37.1 C 68 18 134/77 BP Pulse Ox 07/18/20 16:35 07/18/20 15:17 169/83 H 98 07/18/20 14:39 98 07/18/20 14:23 98 07/18/20 14:06 98 07/18/20 13:03 178/87 H 99 07/18/20 11:43 126/80 97 07/18/20 08:00 07/18/20 07:42 98
--- NOTE | 2020-07-18 16:47 | Cardiology Progress Note ---
Date of Service July 18, 2020 Assessment & Plan (1) Esophagitis: Esophagitis noted on EGD. Discussed with GI , will need an alternative to Fosamax for her osteoporosis. Follow up with PCP or Rheumatology to this regard. Patient has seen Dr Barr in the past. Liquid formulation of potassium replacement recommended rather than XR tablets. (2) Atrial fibrillation: Remains in SR. PVCs noted. Continue metoprolol . Resume Eliquis in am 07/19. New medication. (3) Acute hypokalemia: Repeat BMP and magnesium given PVCs observed today. DVT prophylaxis: resuming Eliquis. Hopeful discharge am of 07/19. Admission and Anticipated Discharge Date Admission Date: July 15, 2020 Keanu Ortega is seen post EGD. She feels well. Review of Systems Review of Systems: All systems reviewed & are unremarkable except as noted in HPI & below Physical Exam Physical Exam: Temp Pulse Resp BP Pulse Ox 36.7 C 68 17 169/83 H 98 07/18/20 15:17 07/18/20 16:35 07/18/20 15:17 07/18/20 15:17 07/18/20 15:17 Constitutional: WD/WN, vitals as above Respiratory: normal respiratory effort, lungs clear to auscultation Cardiovascular: Rate/Rhythm: regular rhythm Heart Sounds: + murmur (I/ murmur) Extremities: no edema Gastrointestinal (Abdomen): normal bowel sounds, soft, nontender, no hepatosplenomegaly Neurologic: PERRL, EOMI, accommodation nl, no face palsy, no dysarthria Results & Data ([facility]) Vital Signs (Past 12 Hours) Vital Signs Temp Pulse Pulse Pulse Pulse Resp BP 07/18/20 16:35 68 07/18/20 15:17 36.7 C 64 17 07/18/20 14:39 66 18 166/79 H 07/18/20 14:23 67 178/73 H 07/18/20 14:06 74 74 16 161/78 H 07/18/20 13:03 37.2 C 62 18 07/18/20 11:43 36.7 C 61 16 07/18/20 08:00 67 07/18/20 07:42 37.1 C 68 18 134/77 BP Pulse Ox 07/18/20 16:35 07/18/20 15:17 169/83 H 98 07/18/20 14:39 98 07/18/20 14:23 98 07/18/20 14:06 98 07/18/20 13:03 178/87 H 99 07/18/20 11:43 126/80 97 07/18/20 08:00 07/18/20 07:42 98 Laboratory Results Coagulation 07/18/20 Range/Units 06:22 PT 11.9 (9.0-12.0) Seconds APTT 25.3 (21.0-31.0) Seconds CBC 07/18/20 Range/Units 06:22 WBC 6.30 (4.8-10.8) K/uL RBC 3.81 L (4.2-5.4) M/uL Hgb 11.0 L (12.0-16.0) g/dL Hct 33.3 L (37-47) % Plt Count 142 (130-400) K/uL Comprehensive Metabolic Panel 07/18/20 Range/Units 06:22 Sodium 138 (136-145) mmol/L Potassium 3.3 L (3.5-5.1) mmol/L Chloride 109 H (98-107) mmol/L Carbon Dioxide 26 (21-32) mmol/L BUN 9 (7-18) mg/dl Creatinine 0.55 L (0.6-1.2) mg/dl Glucose 83 (70-99) mg/dl Calcium 7.8 L (8.5-10.1) mg/dl Intake and Output 07/18/20 07/18/20 07/18/20 06:59 14:59 22:59 Other: # Unmeasured Voids 2 2 Weight 74.3 kg 74.3 kg Weight Measurement Method Built in [facility] Patient Weight 07/19/20 06:59 Weight 74.3 kg (1) Atrial fibrillation Atrial fibrillation type: unspecified Qualified Code(s): I48.91 - Unspecified atrial fibrillation
[2020-07-18 17:30] LABS: BUN Creatinine Ratio 16.5 (10-20); Calcium 7.6 mg/dl (8.5-10.1); Creatinine Clr Calc Pharmacy 59.7 ml/min; Est GFR (African American) 94.9; Est GFR (Non-African American) 81.9; Magnesium 1.9 mg/dl (1.8-2.4); Potassium 3.3 mmol/L (3.5-5.1)
[2020-07-18] MEDS ORDERED: POTASSIUM CHLORIDE 20 MEQ/15 ML UDC PO STA (18:22)
--- NOTE | 2020-07-18 18:24 | Communication Note ---
Date of Service: July 18, 2020 Potassium still low at 3.3. We will prescribe potassium elixir 20 mEq x 1 stat. She is due for another 20 mEq at 9 PM. We will increase her daily dose of potassium chloride elixir to 20 mEq twice daily. Repeat BMP and magnesium tomorrow. If electrolytes are stable, and she tolerates reinitiation of Eliquis in the morning, likely discharge tomorrow.
--- NOTE | 2020-07-18 23:43 | Hospitalist Progress Note ---
Date of Service July 18, 2020 Assessment & Plan (1) Nausea and vomiting: likely secondary to severe GERD, Large Hiatal Hernia, Duodenitis s/p EGD: Impression: - Reflux esophagitis. Biopsied. - No endoscopic esophageal abnormality to explain patient's dysphagia. Dilated. - Large hiatal hernia. - Erythematous mucosa in the antrum. Biopsied. - Duodenitis. Recommendation: - Return patient to [facility] for ongoing care. - Await pathology results. - Follow an antireflux regimen. - Use a proton pump inhibitor PO. - recall GI if needed. per GI, should inform PCP to use alternatives to Fosamax. She can resume Eliquis now. She can use liquid Potassium. She should be on PPI lifelong--> started on Protonix 40mg BID as inpatient diet resumed for dinner hopefully patient tolerates diet consistently prior to discharge (2) Atrial fibrillation with RVR: Currently patient converted to normal sinus rhythm. Rate is controlled. Appreciate cardiology input. Transthoracic echo with a EF of 60%. started on Lopressor 12.5 mg twice daily--> continue transitioned from Heparin drip to Eliquis 5 mg twice daily. (3) Aortic stenosis, severe: - As above, noted on exam (4) H/O aortic valve replacement: -prosthetic valve done at [facility] Placed September 2016 -follows with Dr. Salomon as outpt. (5) HTN (hypertension): improved continue Metoprolol (6) HLD (hyperlipidemia): - Cont pravastatin 80 mg daily (7) Vertigo: - hx of such, stable (8) MGUS (monoclonal gammopathy of unknown significance): - Recent diagnosis, follows with [facility] heme/onc. Had recent bone marrow biopsy which was reassuring. PCP planning to follow monthly labs done at [facility] and considering yearly bone marrow biopsy. (9) Osteoarthritis: - Hx of such - Vit D on hold since hospitalization earlier this year. Was told by manager community relations to DC this medication. (10) GERD (gastroesophageal reflux disease): - Recently taken off omeprazole (11) Hypokalemia: Improved, potassium at 3.0 today. P.o. ordered (12) DVT prophylaxis: - teds, heparin as above CODE: Full code Dispo: visiting daughter here in [place] for [place] patient lives with other daughter in [place] PT/OT evaluation Admission and Anticipated Discharge Date Admission Date: July 15, 2020 Subjective ff up for nausea/vomiting, a fib in RVR seen resting in bed, comfortable very pleasant states she feels improved today has been NPO since this morning for EGD but no nausea, chest pain, abdominal pain no palpitations, dyspnea no bleeding no other symptoms Review of Systems Review of Systems: All systems reviewed & are unremarkable except as noted in Subjective Physical Exam Physical Exam: General- oriented x 3, not in distress, speaks in sentences with no effort or accessory muscle use Eyes- anicteric Neck- no JVD Lungs- clear breath sounds bilaterally, no rales/wheezes Heart- normal rate, regular rhythm; no murmurs Abdomen- normal bowel sounds, nondistended, soft, nontender Extremities- no pretibial edema, no calf tenderness Neuro- alert, oriented x 3; no gross focal neurologic deficits Skin- warm & dry Results & Data Results & Data ([facility]) Vital Signs (Past 12 Hours) Vital Signs Temp Pulse Pulse Pulse Pulse Resp BP 07/18/20 23:03 37.2 C 63 18 07/18/20 18:59 37.1 C 71 18 07/18/20 16:35 68 07/18/20 15:17 36.7 C 64 17 07/18/20 14:39 66 18 166/79 H 07/18/20 14:23 67 178/73 H 07/18/20 14:06 74 74 16 161/78 H 07/18/20 13:03 37.2 C 62 18 07/18/20 11:43 36.7 C 61 16 BP Pulse Ox 07/18/20 23:03 143/80 H 94 07/18/20 18:59 145/80 H 96 07/18/20 16:35 07/18/20 15:17 169/83 H 98 07/18/20 14:39 98 07/18/20 14:23 98 07/18/20 14:06 98 07/18/20 13:03 178/87 H 99 07/18/20 11:43 126/80 97 Laboratory Results Laboratory Results - last 24 hr 07/18/20 07/18/20 07/18/20 06:22 06:22 06:22 WBC 6.30 RBC 3.81 L Hgb 11.0 L Hct 33.3 L MCV 87.4 MCH 28.9 MCHC 33.0 RDW Std Deviation 46.3 RDW Coeff of Tung 14.5 Plt Count 142 MPV 10.1 PT 11.9 INR 1.2 H APTT 25.3 PTT Ratio 1.0 Sodium 138 Potassium 3.3 L Chloride 109 H Carbon Dioxide 26 Anion Gap 4.0 BUN 9 Creatinine 0.55 L Est Cr Clr Drug Dosing 72.7 Est GFR ( Amer) 101.2 Est GFR (Non-Af Amer) 87.4 BUN/Creatinine Ratio 16.9 Glucose 83 Calcium 7.8 L Magnesium 07/18/20 17:03 WBC RBC Hgb Hct MCV MCH MCHC RDW Std Deviation RDW Coeff of Tung Plt Count MPV PT INR APTT PTT Ratio Sodium 137 Potassium 3.3 L Chloride 107 Carbon Dioxide 24 Anion Gap 6.0 BUN 11 Creatinine 0.67 Est Cr Clr Drug Dosing 59.7 Est GFR ( Amer) 94.9 Est GFR (Non-Af Amer) 81.9 BUN/Creatinine Ratio 16.5 Glucose 96 Calcium 7.6 L Magnesium 1.9
[2020-07-19 06:20] LABS: Hemoglobin 10.4 g/dL (12.0-16.0); Mean Corpuscular Hemoglobin 28.4 pg (25-34); Mean Corpuscular Hgb Conc 32.5 g/dL (32-36); Mean Corpuscular Volume 87.4 fL (80-100); Mean Platelet Volume 10.4 fL (7.4-10.4); Platelet Count 130 K/uL (130-400); RDW Coefficient of Variation 14.6 % (11.5-14.5); RDW Standard Deviation 46.4 fL (36.4-46.3); Red Blood Count 3.66 M/uL (4.2-5.4); White Blood Count 5.58 K/uL (4.8-10.8)
[2020-07-19 06:36] LABS: Calcium 7.2 mg/dl (8.5-10.1); Creatinine Clr Calc Pharmacy 70.8 ml/min; Est GFR (African American) 100.1; Est GFR (Non-African American) 86.3; Magnesium 1.9 mg/dl (1.8-2.4); Potassium 3.3 mmol/L (3.5-5.1)
[2020-07-19] MEDS: METOPROLOL TARTRATE 25 MG TAB PO SCH (07:49)
[2020-07-19] MEDS: MAGNESIUM OXIDE 400 MG TAB PO SCH ×2 (07:50→13:28)
[2020-07-19] MEDS: PANTOprazole 40 MG TAB PO SCH (07:50)
[2020-07-19] MEDS: PRAVASTATIN SOD 40 MG TAB PO SCH (07:50)
[2020-07-19] MEDS: POTASSIUM CHLORIDE 20 MEQ/15 ML UDC PO SCH (07:50)
[2020-07-19] MEDS: POT PHOSPHATE MONOBASIC W/ SOD TAB PO SCH ×2 (07:51→13:28)
[2020-07-19] MEDS: prednisoLONE acetate 1% OP SUSP 5 ML BTL OPB SCH (07:51)
[2020-07-19] MEDS ORDERED: POTASSIUM CHLORIDE PWD 20 MEQ PACK PO ONE (08:30)
[2020-07-19] MEDS ORDERED: APIXABAN 5 MG TABLET PO SCH (09:00)
--- NOTE | 2020-07-19 10:14 | Cardiology Progress Note ---
Date of Service July 19, 2020 Assessment & Plan (1) Atrial fibrillation: Patient remains in sinus rhythm on telemetry. Occasional PVCs noted. Continue metoprolol tartrate 12.5 mg twice daily. Will initiate oral anticoagulation with Eliquis, 5 mg twice daily today. Outpatient cardiology follow-up in 2 weeks. (2) Esophagitis: Esophagitis noted on EGD most likely secondary to Fosamax. Alternative medication to be determined by PCP or rheumatology. (3) Acute hypokalemia: Replace as indicated. Admission and Anticipated Discharge Date Admission Date: July 15, 2020 Subjective Patient seen and examined at the bedside. Feeling well from a cardiovascular perspective. Denies chest pain or unusual shortness of breath. No palpitations, lightheadedness, dizziness, syncope, or near syncope. Diagnosed with pill esophagitis. Fosamax discontinued. Telemetry reveals sinus rhythm in the 70s. No recurrent atrial fibrillation. Denies signs/symptoms of GI/ blood loss. Offers no concerns/complaints at this time. Daughter on speaker phone during today's evaluation. Review of Systems Review of Systems: All systems reviewed & are unremarkable except as noted in HPI & below Physical Exam Constitutional: well developed and well nourished; no acute distress Respiratory: normal respiratory effort; no respiratory distress and no labored breathing Auscultation: lungs clear to auscultation bilaterally; no crackles, no rales, no rhonchi and no wheezes Cardiovascular: Rate/Rhythm: regular rate and regular rhythm Heart Sounds: normal S1 and normal S2; no murmur and no cardiac rub Palpation: normal PMI Vessels: radial pulses present; no JVD Extremities: no edema Gastrointestinal (Abdomen): Inspection/Auscultation: abdomen normal to inspection and normal bowel sounds; abdomen not distended Percussion/Palpation: abdomen soft; abdomen nontender, no guarding and abdomen not rigid Skin: no rashes, warm and dry Neurologic: CN's II-XI intact bilaterally and moves all extremities Motor/Sensory: no tremor Psychiatric: A+Ox3, euthymic affect Results & Data ([facility]) Vital Signs (Past 12 Hours) Vital Signs Temp Pulse Pulse Resp BP Pulse Ox 07/19/20 08:11 36.6 C 61 18 131/73 98 07/19/20 08:00 68 07/19/20 03:36 36.8 C 58 L 18 149/76 H 97 07/18/20 23:03 37.2 C 63 18 143/80 H 94 (1) Atrial fibrillation Atrial fibrillation type: unspecified Qualified Code(s): I48.91 - Unspecified atrial fibrillation
--- NOTE | 2020-07-19 12:30 | Hospitalist Progress Note ---
Date of Service July 19, 2020 Assessment & Plan (1) Nausea and vomiting: Nausea, vomiting likely due to severe GERD, Large Hiatal Hernia, Duodenitis CT ABD: Large hiatal hernia, no signs of bowel obstruction, findings suggestive of IPMN, sigmoid diverticulosis. s/p EGD: Reflux esophagitis. Biopsied. No endoscopic esophageal abnormality to explain. patient's dysphagia. Dilated. Large hiatal hernia. Erythematous mucosa in the antrum. Biopsied. Duodenitis. Appreciate GI input Pathology pending Continue PPI Fosamax needs to be discontinued upon discharge likely contributing to duodenitis Needs follow-up with GI upon discharge (2) Atrial fibrillation with RVR: Converted to sinus rhythm Rate controlled Appreciate cardiology input Continue metoprolol tartrate 12.5 mg twice a day On Eliquis 5 mg twice daily for anticoagulation (3) Aortic stenosis, severe: Continue home medication (4) H/O aortic valve replacement: Had prosthetic valve done at [facility] Placed September [address] Salomon (5) HTN (hypertension): Bp Stable continue Metoprolol (6) HLD (hyperlipidemia): Continue pravastatin (7) Vertigo: stable (8) MGUS (monoclonal gammopathy of unknown significance): Recent diagnosis Follows with [facility] heme/onc. Had recent bone marrow biopsy PCP planning to follow monthly labs done at [facility] and considering yearly bone marrow biopsy. (9) Osteoarthritis: Stable (10) GERD (gastroesophageal reflux disease): Continue PPI (11) Hypokalemia: Continue potassium supplements (12) DVT prophylaxis: Eliquis CODE STATUS: Full code Admission and Anticipated Discharge Date Admission Date: July 15, 2020 Subjective Patient is seen and examined at bedside States feeling well today No nausea vomiting Tolerating diet Discussed with cardiology today Denies chest pain, palpitations, shortness of breath, dizziness, abdominal pain Offers no other complaints Review of Systems Review of Systems: All systems reviewed & are unremarkable except as noted in HPI & below Physical Exam Physical Exam: Physical Exam: Vitals signs as noted above General Appearance:Moderately built and nourished, no apparent distress Head: normocephalic, Atraumatic Eyes: normal inspection, EOMI Neck: supple, Trachea midline Respiratory/Chest: Normal breath sounds, CTA Cardiovascular: S1, S2, + murmur Abdomen/GI:Soft, Non tender, Bowel sounds present Extremities/Musculoskeletal:normal inspection, no edema Neurologic/Psych:AAOX3, grossly no focal neurological deficits Skin: normal color, warm Results & Data Results & Data ([facility]) Vital Signs (Past 12 Hours) Vital Signs Temp Pulse Pulse Resp BP Pulse Ox 07/19/20 08:11 36.6 C 61 18 131/73 98 07/19/20 08:00 68 07/19/20 03:36 36.8 C 58 L 18 149/76 H 97 Laboratory Results Short CBC 07/19/20 Range/Units 05:49 WBC 5.58 (4.8-10.8) K/uL Hgb 10.4 L (12.0-16.0) g/dL Hct 32.0 L (37-47) % Plt Count 130 (130-400) K/uL BMP 07/18/20 07/19/20 17:03 05:49 Sodium 137 140 Potassium 3.3 L 3.3 L Chloride 107 108 H Carbon Dioxide 24 27 BUN 11 11 Creatinine 0.67 0.57 L Glucose 96 79 Calcium 7.6 L 7.2 L
--- NOTE | 2020-07-19 12:42 | Discharge Summary ---
Date of Service July 19, 2020 Admission HPI Per Admitting Provider This in an 84 yo F with PMHx of Aortic stenosis s/p AV replacement on baby aspirin, Paroxysmal Afib s/p ablation and conversion with amiodarone, left atrial appendage ligation in September 2016 HLD, MGUS, osteoarthritis, GERD, allergic rhinitis, nephrolithiasis and vertigo who presents from her PCP office with c/o nausea, weakness, vomiting x 3 days. She has hx of nausea and vomiting once monthly which happened 1.5 mo ago, which resulted in hospitalization for dehydration and hypercalcemia. At that time she was placed on magnesium supplements and thinks that diarrhea has been a daily/every other day occurrence since then. She is unable to keep food down currently despite trials with Pedialyte and water. She has not been able to keep her medications down since Tuesday night. Pt was previously on omeprazole, but nephrology discontinued this medication recently, and hasn't taken it in about 1 month. She reports weakness, denies dizziness and lightheadedness. Admits to substernal burning, no chest pain or pressure. Pt does not feel palpitations or irregular heartbeat. She has not been in afib since the time of her aortic valve replacement, and although previously on coumadin, is no longer on anticoagulation other than baby aspirin. The patient was here visiting her daughter over the , as she typically resides in [place] with her other daughter, Nicole, who is present at bedside. She gets her medical care here as well as [facility] heme/onc and [facility]. Pt typically is able to care for herself at home. She walks with a cane. Daughter also mentions pt with hx of during last hospitalization, and requests to be able to visit. We discussed visitor restrictions due to the COVID-19 pandemic, and unfortunately at this time no visitors are allowed on the floors. Admission Exam Per Admitting Provider Physical Exam Physical Exam: General: awake, alert, no apparent distress Head: Normocephalic, atraumatic ENT: PERRL, EOMI, no pharyngeal exudate, mucous membranes moist Chest: Clear to auscultation, on room air, no adventitious breath sounds Cardiac: Irregularly irregular, HR ~ 110s at rest. When sat her forward to auscultate lungs HR went into 170s when she became nauseous and was actively dry heaving at bedside, + loud systolic murmur grade V/, no JVD, normal peripheral pulses, good capillary refill Abdominal: NABS x 4 quadrants, soft, nondistended, nontender to palpation, no rebound or guarding Extremities: Normal inspection, no peripheral edema or erythema, calfs nontender to palpation Psych: Normal mood and affect Neuro: AAO x 3, strength intact bilaterally and rated 5/5, no motor deficits, speech is clear, no peripheral sensory deficits Principal Diagnosis Reflux esophagitis Duodenitis large lateral hernia Atrial fibrillation Hypokalemia Discharge Data Allergies Allergy/AdvReac Type Severity Reaction Status Date / Time simvastatin Allergy Unknown ELEVATED Verified 07/15/20 11:49 LIVER ENZYMES oxaprozin AdvReac Intermediate MAKES FEEL Verified 07/15/20 11:49 DEPRESSED Consultations 07/15/20 14:08 ED Decision to Admit Stat 07/15/20 18:36 Consult Cardiology Routine 07/17/20 17:20 Consult Gastroenterology Routine Procedures Performed Operation Date: 07/18/20 15:45 Actual Procedures p EGD Biopsy Dilatation - José Harris MD CTA: 1. No pulmonary emboli identified. 2. 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 3. Trace right pleural effusion. 4. Cardiomegaly. CT ABD: 1. Large hiatal hernia with a mixed sliding and paraesophageal components 2. Small right pleural effusion 3. Mildly dilated small bowel loops, but no current evidence of a high-grade obstruction. 4. 2.5 cm polyp within the transverse colon versus adherent stool. Endoscopic correlation should be considered in follow-up 5. 8 cm fat-containing umbilical hernia 6. 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 Right-sided nephrolithiasis 8. 6 mm hyperdense focus within the gallbladder fundus, polyp versus adenomyomatosis 9. Nonspecific 1 cm hypodensity within the pancreatic head, possibly representing a side branch IPMN. No pancreatic ductal dilatation. 10. Normal appendix 11. Extensive sigmoid diverticulosis. No evidence of acute peridiverticular inflammatory change EGD: Findings: Esophagitis with no bleeding was found in the lower third of the esophagus. Biopsies were taken with a cold forceps for histology. Verification of patient identification for the specimen was done by the physician and nurse using the patient's name and date. No endoscopic abnormality was evident in the esophagus to explain the patient's complaint of dysphagia. A guidewire was placed and the scope was withdrawn. Dilation was performed with a Savary dilator with no resistance at 45 Fr. The dilation site was examined following endoscope reinsertion and showed no bleeding, mucosal tear or perforation. A large hiatal hernia was present. Mildly erythematous mucosa was found in the gastric antrum. Biopsies were taken with a cold forceps for Helicobacter pylori testing. Localized mild inflammation characterized by erythema was found in the duodenal bulb and in the second portion of the duodenum. Impression: - Reflux esophagitis. Biopsied. - No endoscopic esophageal abnormality to explain patient's dysphagia. Dilated. - Large hiatal hernia. - Erythematous mucosa in the antrum. Biopsied. - Duodenitis. Recommendation: - [facility] to [facility] for [facility] care. - Await pathology results. - Follow an antireflux regimen. - Use a proton pump inhibitor PO. - recall GI if needed. Ordered Studies 07/15/20 11:38 CT abd pelvis IV con only Stat 07/15/20 12:25 CT angio chest PE protocol Stat Hospital Course (1) Nausea and vomiting: Nausea, vomiting likely due to severe GERD, Large Hiatal Hernia, Duodenitis CT ABD: Large hiatal hernia, no signs of bowel obstruction, findings suggestive of IPMN, sigmoid diverticulosis. s/p EGD: Reflux esophagitis. Biopsied. No endoscopic esophageal abnormality to explain. patient's dysphagia. Dilated. Large hiatal hernia. Erythematous mucosa in the antrum. Biopsied. Duodenitis. Appreciate GI input Pathology pending Continue PPI Fosamax needs to be discontinued upon discharge likely contributing to duodenitis Needs follow-up with GI upon discharge (2) Atrial fibrillation with RVR: Converted to sinus rhythm Rate controlled Appreciate cardiology input Continue metoprolol tartrate 12.5 mg twice a day On Eliquis 5 mg twice daily for anticoagulation (3) Aortic stenosis, severe: Continue home medication (4) H/O aortic valve replacement: Had prosthetic valve done at [facility] Placed September [address] Salomon (5) HTN (hypertension): Bp Stable continue Metoprolol (6) HLD (hyperlipidemia): Continue pravastatin (7) Vertigo: stable (8) MGUS (monoclonal gammopathy of unknown significance): Recent diagnosis Follows with [facility] heme/onc. Had recent bone marrow biopsy PCP planning to follow monthly labs done at [facility] and considering yearly bone marrow biopsy. (9) Osteoarthritis: Stable (10) GERD (gastroesophageal reflux disease): Continue PPI (11) Hypokalemia: Continue potassium supplements (12) DVT prophylaxis: Eliquis CODE STATUS: Full code Total Time Total Time Spent Total Time Spent (In Minutes): 45 minutes Total Time Includes: Examination of the Patient, Discharge Planning, Medication Reconciliation, Communication With Other Providers and Other Discharge Plan Discharge Items Patient Disposition: Home - Self-Care Reason For Visit: AFIB RVR, INTRACTABLE NAUSEA/VOMITING Discharge Diagnosis: Reflux esophagitis Duodenitis large lateral hernia Atrial fibrillation Hypokalemia Activity: Per Instructions section Exercise/Sports: Gradually increase as tolerated Non-emergency contact: Primary Care Provider, Code Inspector and Field Radio Operator Call non-emergency contact if: you have any medication questions, your symptoms worsen, your pain is not controlled, your pain is concerning for you and you have a fever Follow-up/Referrals: Eliazar Reis MD [Primary Care Provider] - 07/23/20 10:45 am (Please follow up with Dr. Reis on Tuesday07/23/20 at 10:45 am. Please arrive to the office at 10:30 am for your appointment. If you are unable to keep this appointment, please call the office to reschedule at [phone].) Diet: Heart Healthy Diet Texture: Easy to Chew Ambulatory Orders: Basic Metabolic Panel (Routine) Timeframe: 1 Week Location: Determined by Patient Ordered By: Jey Cooper Attending Provider Instructions: Follow-up with your primary care physician Dr. Reis in 1 week Follow-up with your equipment maintenance engineer / in 2 weeks as advised Follow-up with your ict programmer Dr. Harris as needed Your pathology results from endoscopy are pending at the time of discharge. Follow-up with your physician for results. Get blood test(basic metabolic panel in 1 week) and follow-up with your physician with results. Seek immediate medical attention if your symptoms reoccur or worsen Pending Studies at Discharge: Yes Studies:: Pathology Stand-Alone Forms: [employer], Smoking Cessation Medications and DC Order Prescriptions: New Eliquis 5 mg Tablet 5 mg PO BID Qty: 60 RF: 1 metoprolol tartrate 25 mg Tablet 12.5 mg PO BID Qty: 30 RF: 1 pantoprazole 40 mg Tablet,Delayed Release (Dr/Ec) 40 mg PO BID Qty: 60 RF: 1 Continued pravastatin 80 mg tablet 80 mg PO DAILY RF: 0 prednisolone acetate 1 % drops,suspension 1 drp ophthalmic (eye) UD RF: 0 magnesium oxide 500 mg tablet 1,000 mg PO TID RF: 0 Phospha 250 Neutral 250 mg tablet 2 tab PO TID RF: 0 solifenacin 5 mg tablet 5 mg PO DAILY RF: 0 potassium chloride 20 mEq tablet,ER particles/crystals 20 meq PO DAILY Qty: 30 RF: 0 Discontinued alendronate 70 mg tablet 70 mg PO WK RF: 0 Discharge Orders: Discharge Order (Routine); Ordered 07/19/20 Ordered By: Jey Gill/Other Patient Handouts: AFL/Afib, Pantoprazole tablets, Apixaban oral tablets, Metoprolol tablets Admission Data Admit Date/Time: 07/15/20 15:00 Attending Provider: Jey Lopez Admit Provider: Wallace Argueta Primary Care Provider: Eliazar Reis Other Providers: Wallace Argueta ; Shon Shah ; José Harris Muhammad J. Other Interventions: Discharge Summary Assessment (RN) Last Done: 07/19/20 12:58
== END 2020-07-19 14:59 | disposition home or self-care (01) | DRG 392 ==
LOC: ED 10:49 → EDINP 15:00 → SUATTDRO 15:00 → 2S 18:07

== ENCOUNTER 2021-07-06 14:17 | Inpatient (IN) ==
[2021-07-06] MEDS ORDERED: LIDO/EPINEPHRINE/SOD BICARB 20 ML VIAL INFIL ONE (15:35)
--- NOTE | 2021-07-06 15:40 | CT Scan Report ---
CT SCAN OF THE BRAIN WITHOUT IV CONTRAST CLINICAL HISTORY: Fall. Head injury. COMPARISON STUDY: No priors. TECHNIQUE: Unenhanced axial CT scan of the brain is performed from the vertex to the skull base. A do se lowering technique was utilized adhering to the principles of ALARA. FINDINGS: Brain parenchyma: There are age-related involutional changes noting mild subcortical and periventric ular microangiopathic change. There is no hemorrhage, mass effect, or evidence of acute territorial i schemia by CT criteria. 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 Colin-white matter differentiation is preserved. No extra-axial fluid collection is seen. Ventricles, sulci, cisterns: Prominent secondary to involutional change. Intracranial vasculature: There is atherosclerotic calcification of the cavernous carotid and vertebr al arteries. Calvarium: The skeletal structures are osteopenic. No depressed calvarial fracture is identified. Sinuses and mastoids: The visualized paranasal sinuses are clear. The mastoid air cells are well pneu matized. Orbits: The bony orbits are grossly intact. There are bilateral ocular lens implants. IMPRESSION: There is no hemorrhage, mass effect, or evidence of acute territorial ischemia by CT david ann. ACT 112: Negative or not required by law. Electronically signed by: Guillermo Paniagua M.D. 07/06/2021 3:39 PM
--- NOTE | 2021-07-06 15:42 | XRay Report ---
XR knee RT 1 or 2V routine HISTORY: 85 years-old Female r knee pain Right knee pain status post fall COMPARISON: None TECHNIQUE: 2 views of the right knee FINDINGS: Demineralized appearance of the bones. Severe patellofemoral with at least mild medial and lateral co mpartment osteoarthritis. 2.1 cm corticated ossification within the suprapatellar space. The lateral view is limited secondary to patient positioning. Arterial calcifications. Small joint effusion. Diff use soft tissue swelling with marked prepatellar soft tissue prominence. IMPRESSION: 1. Limited lateral view secondary to positioning. No acute fracture or dislocation identified. 2. Marked prepatellar soft tissue prominence. Correlate clinically to exclude a posttraumatic soft ti ssue hematoma. ACT 112: Negative or not required by law. The above report was generated using voice recognition software. It may contain grammatical, syntax o r spelling errors. Electronically signed by: Miguel Angel Cooper M.D. 07/06/2021 3:41 PM
--- NOTE | 2021-07-06 15:44 | CT Scan Report ---
CT SCAN OF THE CERVICAL SPINE CLINICAL HISTORY: Trauma. Fall. COMPARISON STUDY: No priors. TECHNIQUE: CT scan of the cervical spine is performed from the skull base to the upper thoracic spine . Images are reviewed in the axial, sagittal, and coronal planes. IV contrast was not administered fo r this examination. A dose lowering technique was utilized adhering to the principles of ALARA. FINDINGS: Skeletal structures: The skeletal structures are osteopenic. There is no evidence of fracture or subl uxation involving the cervical spine. Vertebral body height and alignment are maintained. There is mi nimal anterolisthesis at C7-T1 and T2-T3. Anterior osteophytes are seen throughout. The odontoid proc ess and lateral masses are intact. The atlantoaxial articulation is preserved noting productive degen erative change. The spinous processes appear intact. There is moderate to advanced multilevel cervica l spondylosis. Uncovertebral and facet arthropathy contribute to neural foraminal narrowing at most l evels. Intervertebral discs: There is moderate to advanced disc space narrowing seen at all cervical levels, greatest at C3-C4 and C4-C5. Central canal: Posterior disc osteophyte complexes are seen at all cervical levels from C3 to C4 thro ugh C6-C7. This likely contributes to multilevel acquired compromise of the central canal. Soft tissues: The prevertebral and paraspinous soft tissues are within normal limits. Calcified sialo liths are noted in the right parotid gland. There is atherosclerotic calcification of the carotid bul bs. Calvarium: The visualized calvarium at the skull base appears intact. Brain parenchyma: Partially visualized brain parenchyma at the skull base is within normal limits. Sinuses and mastoids: The visualized paranasal sinuses are clear. The mastoid air cells are well pneu matized. Lung apices: Clear as visualized. IMPRESSION: 1. There is no evidence of fracture or subluxation involving the cervical spine. 2. Osteopenia and spondylotic change as above. ACT 112: Negative or not required by law. Electronically signed by: Guillermo Paniagua M.D. 07/06/2021 3:43 PM
--- NOTE | 2021-07-06 15:52 | CT Scan Report ---
CT facial bones wo con CLINICAL HISTORY: 85 years-old Female presenting with fall hit head/face on NOAC. Acute head injury s tatus post fall COMPARISON STUDY: CT head and cervical spine studies of same day TECHNIQUE: High-resolution CT scan of the facial bones is performed. Images are reviewed in the axia l, sagittal, and coronal planes. IV contrast was not administered for this examination. A dose lower ing technique was utilized adhering to the principles of ALARA. CT DOSE: 1064.58 mGy.cm FINDINGS: No acute intracranial abnormality identified. Prior bilateral lens repair. Tiny contusion of the righ t cheek. Streak artifact from dental amalgam hardware. Trace right mastoid effusion. Left mastoid air cells and paranasal sinuses are generally clear. Mild leftward bowing and spurring of the nasal sept um. Multilevel degenerative changes of the cervical spine. IMPRESSION: No acute facial bone fracture identified. ACT 112: Negative or not required by law. The above report was generated using voice recognition software. It may contain grammatical, syntax o r spelling errors. Electronically signed by: Miguel Angel Cooper M.D. 07/06/2021 3:50 PM
[2021-07-06] MEDS ORDERED: ACETAMINOPHEN 325 MG TAB PO STA (16:05)
--- NOTE | 2021-07-06 16:05 | Emergency Department Note ---
Impression & Plan Fall, Acute knee pain, Ambulatory dysfunction, Laceration of lip ED Provider Note NAME: LIANG CRUZ AGE: 85 SEX: F : 1935 ARRIVES VIA: Ambulance INFORMANT: Patient ED PROVIDER(S): Raleigh Gomez DO CHIEF COMPLAINT: fall HPI: Patient is an 85-year-old female who was at her daughter's house. She notes that she tripped over a bag and fell forward and hit her head. She did not lose consciousness. She complains of mild face pain and right lower lip pa in. She also complains of right elbow pain and significant right knee pain. Right knee is tender with range of motion. 6-7 out of 10. She denies any nausea or vomiting. She does take blood thinners. ROS: See above HPI for pertinent positives & negatives. A total of 10 systems reviewed and were otherwise negative. PAST MEDICAL HISTORY:See Below PAST SURGICAL HISTORY:See Below FAMILY HISTORY:See Below SOCIAL HISTORY:See Below HOME MEDICATIONS:See Below ALLERGIES:See Below VITALS:See Below PHYSICAL EXAMINATION: GENERAL: alert, well appearing, well nourished, no distress, non-toxic HEAD: normal cephalic, atraumatic, contusion over the right cheekbone EYE EXAM: normal conjunctiva, PERRL and EOM's grossly intact OROPHARYNX: no exudate, no erythema, 2 cm laceration over the right lateral lip with a half a centimeter laceration in the middle of the lip NECK: supple, no nuchal rigidity, no adenopathy, non-tender CHEST: stable to compression anteriorly and posteriorly LUNGS: clear to auscultation. Normal chest wall mechanics HEART: no murmurs, S1 normal and S2 normal ABDOMEN: abdomen soft, non-tender, normo-active bowel sounds, no masses, no rebound or guarding. PELVIS: stable to compression anteriorly and posteriorly BACK: Back is symmetrical on inspection and there is no deformity, no midline tenderness, no CVA tenderness. UPPER EXTREMITIES: full active and passive range of motion of all joints without tenderness to palpation LOWER EXTREMITIES: full active and passive range of motion of all joints without tenderness to palpation NEURO EXAM: Normal sensorium, cranial nerves II-XII grossly intact, normal speech, no gross weakness of arms, no gross weakness of legs. GCS: 15. MEDICAL DECISION MAKING: Patient is a 5-year-old female who presents ER for mechanical fall. X-rays of the knee initially showed no fracture and CT head neck and face were unremarkable. Laceration was repaired by my PA. Please see his note for further details. She was unable to ambulate and consequently CT of the knee was obtained and unremarkable. After discussion with patient and daughter will need placement. IV was established blood was obtained. Labs show no significant leukocytosis and mild anemia 9.7. LFTs bilirubin were unremarkable. Covid was negative. INR pending. Case was discussed with the hospitalist for further evaluation. Of note both her and daughter note that tetanus is up-to-date. Triage Nursing notes reviewed. Limited review of prior medical records performed Vital Signs: reviewed and remarkable for HTN Differential diagnosis: Differential diagnoses include major intracranial, cervical, spinal, thoracic, abdominal, pelvic and neurologic injury. Fracture, contusion, sprain, strain, laceration, abrasions included as well. ER treatment provided: See below Diagnostics interpreted by me: ECG: none Cardiac Monitoring: An order was placed for continuous cardiac monitoring. The monitor shows a rate of 60 with sinus rhythm. Laboratory studies: As stated above and show below. Imaging studies: CT of the right knee as well as head neck face were unremarkable. 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 Required: No Beliefs That Will Affect Care: None Current Living Situation: Family Feels Safe at Home: Yes Assistive Devices: Glasses Allergies Allergies Allergy/AdvReac Type Severity Reaction Status Date / Time simvastatin Allergy Unknown ELEVATED Verified 07/06/21 17:48 LIVER ENZYMES oxaprozin AdvReac Intermediate MAKES FEEL Verified 07/06/21 17:48 DEPRESSED Home Meds Home Medications Medication Instructions Recorded Confirmed magnesium oxide 500 mg tablet 500 mg PO DAILY 07/15/20 07/06/21 pravastatin 80 mg tablet 80 mg PO DAILY 07/15/20 07/06/21 prednisolone acetate 1 % eye 1 drp OPB HS 07/15/20 07/06/21 drops,suspension sodium di- and 2 tab PO TID 07/15/20 07/06/21 monophosphate-potassium phos monobasic 250 mg tablet (Phospha 250 Neutral) solifenacin 5 mg tablet 5 mg PO QAM 07/15/20 07/06/21 acetaminophen 500 mg tablet 1,000 mg PO BID PRN 06/13/21 07/06/21 (Tylenol Extra Strength) amiodarone 200 mg tablet 200 mg PO QAM 06/13/21 07/06/21 ascorbic acid (vitamin C) 500 mg 500 mg PO QAM 06/13/21 07/06/21 tablet (Vitamin C) ferrous sulfate 325 mg (65 mg 325 mg PO Q OTHER DAY 06/13/21 07/06/21 iron) tablet (iron) furosemide 20 mg tablet 20 mg PO DAILY PRN 06/13/21 07/06/21 potassium chloride 20 mEq 10 meq PO TID 06/13/21 07/06/21 tablet,extended release(part/cryst) fexofenadine 180 mg tablet 180 mg PO 07/06/21 07/06/21 metoprolol succinate 25 mg 25 mg PO DAILY 07/06/21 07/06/21 tablet,extended release 24 hr pantoprazole 40 mg tablet,delayed 40 mg PO DAILY 07/06/21 07/06/21 release peg 400-propylene glycol (PF) 0.4 1 drp OPHTHALMIC (EYE) QID PRN 07/06/21 07/06/21 %-0.3 % eye drops in a dropperette (Systane (PF)) Previous Rx's Medication Instructions Recorded apixaban 5 mg tablet (Eliquis) 5 mg PO BID #60 tab 07/19/20 Results & Data (ED) Vital Signs Vital Signs - 24 hr 07/06/21 14:26 07/06/21 16:10 07/06/21 18:15 Pulse Rate 51 L Pulse Rate [Radial] 80 56 L Pulse Rhythm [Radial] Regular Regular Pulse Strength Normal Respiratory Rate 15 18 18 Respiratory Effort / Characteristics Non-Labored Spontaneous Non-Labored Non-Labored Respiratory Depth Normal Normal Normal Respiratory Pattern Regular Regular Regular Blood Pressure 163/101 H Blood Pressure [Left Arm] 185/81 H 165/67 H Blood Pressure Mean 121 Blood Pressure Mean [Left Arm] 115 99 Blood Pressure Position Lying Pulse Oximetry 100 95 97 Oxygen Delivery Method Room Air Room Air Room Air Sepsis Recent Fever Within 48 Hours No Sepsis New/Unexplained Change in Mental Status N/A Sepsis Action Taken by Nursing No Action Required Laboratory Data Result diagrams: 07/06/21 17:35 07/06/21 17:35 Lab Results 07/06/21 07/06/21 07/06/21 Range/Units 17:35 17:35 17:53 WBC 5.38 (4.8-10.8) K/uL RBC 3.07 L (4.2-5.4) M/uL Hgb 9.7 L (12.0-16.0) g/dL Hct 30.1 L (37-47) % MCV 98.0 (80-100) fL MCH 31.6 (25-34) pg MCHC 32.2 (32-36) g/dL RDW Std Deviation 58.7 H (36.4-46.3) fL RDW Coeff of Tung 16.4 H (11.5-14.5) % Plt Count 88 L (130-400) K/uL MPV 9.9 (7.4-10.4) fL Immature Gran % (Auto) 0.0 % Neut % (Auto) 66.0 % Lymph % (Auto) 20.4 % Latimer % (Auto) 12.3 % Eos % (Auto) 0.7 % Baso % (Auto) 0.6 % Neut # (Auto) 3.55 (1.4-6.5) K/uL Lymph # (Auto) 1.10 L (1.2-3.4) K/uL Latimer # (Auto) 0.66 H (0.11-0.59) K/uL Eos # (Auto) 0.04 (0-0.5) K/uL Baso # (Auto) 0.03 (0-0.2) K/uL Immature Gran # (Auto) 0.00 (0.00-0.02) K/uL Sodium 138 (136-145) mmol/L Potassium 3.5 (3.5-5.1) mmol/L Chloride 105 (98-107) mmol/L Carbon Dioxide 26 (21-32) mmol/L Anion Gap 7 (3-11) BUN 10 (6-23) mg/dl Creatinine 0.84 (0.6-1.2) mg/dl Est Cr Clr Drug Dosing 47.1 ml/min Est GFR ( Amer) 74.5 ml/min Est GFR (Non-Af Amer) 64.3 ml/min BUN/Creatinine Ratio 11.9 (10-20) Glucose 96 (70-99(Fasting)) mg/dl Calcium 8.0 L (8.5-10.1) mg/dl Total Bilirubin 1.1 H (0.2-1.0) mg/dl AST 29 (13-39) U/L ALT 24 (7-52) U/L Alkaline Phosphatase 109 H (34-104) U/L Total Protein 7.8 (6.0-8.3) gm/dl Albumin 2.8 L (3.4-5.0) gm/dl Globulin 5.0 H (2.5-4.0) gm/dl Albumin/Globulin Ratio 0.6 L (0.9-2) Lipase 11 (11-82) U/L SARS-CoV-2, RNA, NAAT NEGATIVE (NEGATIVE) Administered Medications Discontinued Medications Acetaminophen (Acetaminophen 325 Mg Tab) 650 mg PO NOW STA Stop: 07/06/21 16:06 Last Admin: 07/06/21 16:24 Dose: 650 mg Documented by: [id number] Lidocaine/Epinephrine (Lido/Epinephrine/Sod Bicarb 20 Ml Vial) 20 ml INFIL NOW ONE Stop: 07/06/21 15:36 Last Admin: 07/06/21 15:59 Dose: 20 ml Documented by: [id number] Imaging Data Radiologist's Impression: Cervical Spine CT 07/06/21 14:48 CT SCAN OF THE CERVICAL SPINE CLINICAL HISTORY: Trauma. Fall. COMPARISON STUDY: No priors. TECHNIQUE: CT scan of the cervical spine is performed from the skull base to the upper thoracic spine. Images are reviewed in the axial, sagittal, and coronal planes. IV contrast was not administered for this examination. A dose lowering technique was utilized adhering to the principles of ALARA. FINDINGS: Skeletal structures: The skeletal structures are osteopenic. There is no evidence of fracture or subluxation involving the cervical spine. Vertebral body height and alignment are maintained. There is minimal anterolisthesis at C7-T1 and T2-T3. Anterior osteophytes are seen throughout. The odontoid process and lateral masses are intact. The atlantoaxial articulation is preserved noting productive degenerative change. The spinous processes appear intact. There is moderate to advanced multilevel cervical spondylosis. Uncovertebral and facet arthropathy contribute to neural foraminal narrowing at most levels. Intervertebral discs: There is moderate to advanced disc space narrowing seen at all cervical levels, greatest at C3-C4 and C4-C5. Central canal: Posterior disc osteophyte complexes are seen at all cervical levels from C3 to C4 through C6-C7. This likely contributes to multilevel acquired compromise of the central canal. Soft tissues: The prevertebral and paraspinous soft tissues are within normal limits. Calcified sialoliths are noted in the right parotid gland. There is atherosclerotic calcification of the carotid bulbs. Calvarium: The visualized calvarium at the skull base appears intact. Brain parenchyma: Partially visualized brain parenchyma at the skull base is within normal limits. Sinuses and mastoids: The visualized paranasal sinuses are clear. The mastoid air cells are well pneumatized. Lung apices: Clear as visualized. IMPRESSION: 1. There is no evidence of fracture or subluxation involving the cervical spine. 2. Osteopenia and spondylotic change as above. ACT 112: Negative or not required by law. Electronically signed by: Guillermo Paniagua M.D. 07/06/2021 3:[address] 07/06/21 14:48 CT facial bones wo con CLINICAL HISTORY: 85 years-old Female presenting with fall hit head/face on NOAC. Acute head injury status post fall COMPARISON STUDY: CT head and cervical spine studies of same day TECHNIQUE: High-resolution CT scan of the facial bones is performed. Images are reviewed in the axial, sagittal, and coronal planes. IV contrast was not administered for this examination. A dose lowering technique was utilized adhering to the principles of ALARA. CT DOSE: 1064.58 mGy.cm FINDINGS: No acute intracranial abnormality identified. Prior bilateral lens repair. Tiny contusion of the right cheek. Streak artifact from dental amalgam hardware. Trace right mastoid effusion. Left mastoid air cells and paranasal sinuses are generally clear. Mild leftward bowing and spurring of the nasal septum. Multilev el degenerative changes of the cervical spine. IMPRESSION: No acute facial bone fracture identified. ACT 112: Negative or not required by law. The above report was generated using voice recognition software. It may contain grammatical, syntax or spelling errors. Electronically signed by: Miguel Angel Cooper M.D. 07/06/2021 3:[address] 07/06/21 14:48 CT SCAN OF THE BRAIN WITHOUT IV CONTRAST CLINICAL HISTORY: Fall. Head injury. COMPARISON STUDY: No priors. TECHNIQUE: Unenhanced axial CT scan of the brain is performed from the vertex to the skull base. A dose lowering technique was utilized adhering to the principles of ALARA. FINDINGS: Brain parenchyma: There are age-related involutional changes noting mild subcortical and periventricular microangiopathic change. There is no hemorrhage, mass effect, or evidence of acute territorial ischemia by CT criteria. 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 Colin-white matter differentiation is preserved. No extra-axial fluid collection is seen. Ventricles, sulci, cisterns: Prominent secondary to involutional change. Intracranial vasculature: There is atherosclerotic calcification of the cavernous carotid and vertebral arteries. Calvarium: The skeletal structures are osteopenic. No depressed calvarial fracture is identified. Sinuses and mastoids: The visualized paranasal sinuses are clear. The mastoid air cells are well pneumatized. Orbits: The bony orbits are grossly intact. There are bilateral ocular lens implants. IMPRESSION: There is no hemorrhage, mass effect, or evidence of acute territorial ischemia by CT criteria. ACT 112: Negative or not required by law. Electronically signed by: Guillermo Paniagua M.D. 07/06/2021 3:39 PM Knee X-Ray 07/06/21 14:48 XR knee RT 1 or 2V routine HISTORY: 85 years-old Female r knee pain Right knee pain status post fall COMPARISON: None TECHNIQUE: 2 views of the right knee FINDINGS: Demineralized appearance of the bones. 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 2.1 cm corticated ossification within the suprapatellar space. The lateral view is limited secondary to patient positioning. Arterial calcifications. Small joint effusion. Diffuse soft tissue swelling with marked prepatellar soft tissue prominence. IMPRESSION: 1. Limited lateral view secondary to positioning. No acute fracture or dislocation identified. 2. Marked prepatellar soft tissue prominence. Correlate clinically to exclude a posttraumatic soft tissue hematoma. ACT 112: Negative or not required by law. The above report was generated using voice recognition software. It may contain grammatical, syntax or spelling errors. Electronically signed by: Miguel Angel Cooper M.D. 07/06/2021 3:[address] 07/06/21 16:05 CT SCAN OF THE RIGHT KNEE WITHOUT IV CONTRAST CLINICAL HISTORY: Fall with right knee injury. COMPARISON STUDY: Radiographs of the right knee dated 07/06/2021. TECHNIQUE: CT scan of the right knee is performed from the distal femur to the proximal tibia and fibula. Images are reviewed in the axial, sagittal, and coronal planes. IV contrast was not administered for this examination. A dose lowering technique was utilized adhering to the principles of ALARA. CT DOSE: 174.35 mGy.cm FINDINGS: The skeletal structures are osteopenic. There is no evidence of acute fracture. Tricompartmental degenerative joint space narrowing is observed, greatest in the patellofemoral articulation. A 1.4 cm well-corticated suprapatellar ossific density is again noted. There are patellar enthesophytes and large marginal osteophytes, as well as degenerative beaking of the tibial spine. There is only trace joint effusion. Soft tissue edema is present around the knee. A large hyperdense fluid collection within the prepatellar soft tissues measures approximately 12 x 4 x 11.5 cm. This demonstrates an internal hematocrit level and is typical for a hematoma. This extends into the upper calf in the lateral aspect of the knee. Advanced atherosclerotic calcification is observed in the regional arteries. There is generalized atrophy of the regional musculature. IMPRESSION: 1. No fracture is identified. 2. Small joint effusion. 3. There is soft tissue edema around the knee with a large prepatellar soft tissue hematoma. 4. Osteopenia and degenerative change as above. ACT 112: Negative or not required by law. Dictated: 07/06/2021 5:00 PM Transcribed: 07/06/2021 5:17 PM Cristina [id number] [facility] Electronically signed by: Guillermo Paniagua M.D. 07/06/2021 5:19 PM Discharge Plan Visit Data Chief Complaint: Knee Injury/Pain ED Provider: Raleigh Gomez Discharge Problem: Fall, Acute knee pain, Ambulatory dysfunction, Laceration of lip Forms Stand Alone Forms: My [facility] [place] Prescriptions Prescriptions: No Action pravastatin 80 mg tablet 80 mg PO DAILY RF: 0 prednisolone acetate 1 % drops,suspension 1 drp OPB HS RF: 0 magnesium oxide 500 mg tablet 500 mg PO DAILY RF: 0 Phospha 250 Neutral 250 mg tablet 2 tab PO TID RF: 0 solifenacin 5 mg tablet 5 mg PO QAM RF: 0 Eliquis 5 mg Tablet 5 mg PO BID Qty: 60 RF: 1 acetaminophen [Tylenol Extra Strength] 500 mg Tablet 1,000 mg PO BID PRN (Reason: Pain) RF: 0 ascorbic acid (vitamin C) [Vitamin C] 500 mg Tablet 500 mg PO QAM RF: 0 ferrous sulfate [iron] 325 mg (65 mg iron) Tablet 325 mg PO Q OTHER DAY RF: 0 furosemide 20 mg tablet 20 mg PO DAILY PRN (Reason: Edema) RF: 0 potassium chloride 20 mEq tablet,ER particles/crystals 10 meq PO TID RF: 0 amiodarone 200 mg tablet 200 mg PO QAM RF: 0 Systane (PF) 0.4-0.3 % Dropperette 1 drp OPHTHALMIC (EYE) QID PRN (Reason: Dry Eye(S)) RF: 0 fexofenadine 180 mg Tablet 180 mg PO HS RF: 0 pantoprazole 40 mg tablet,delayed release (DR/EC) 40 mg PO DAILY RF: 0 metoprolol succinate 25 mg tablet extended release 24 hr 25 mg PO DAILY RF: 0 Referrals Referrals: Eliazar Reis MD [Primary Care Provider] - Discharge Problem: Fall Qualifiers: Encounter type: initial encounter Qualified Code(s): W19.XXXA - Unspecified fa ll, initial encounter Acute knee pain Qualifiers: Laterality: right Qualified Code(s): M25.561 - Pain in right knee Laceration of lip Qualifiers: Encounter type: initial encounter Qualified Code(s): S01.511A - Laceration w ithout foreign body of lip, initial encounter
--- NOTE | 2021-07-06 16:56 | Emergency Department Note ---
ED Visit Note I was asked by Dr. Gomez to evaluate the patient's lip and intraoral lacerations for primary closure. Her tdap is up to date. Intraoral laceration Located on wet vermilion portion of the right lower lip, irregular measuring 1.5 cm, does not extend into the muscle layer Anesthesia was achieved with 2 mL of local lidocaine 1% with epinephrine. Wound was copiously irrigated with sterile normal saline using a syringe. Approximation was obtained using 3, 5-0 fast absorbing chromic gut, simple interrupted sutures. East soft foods 2-3 days Rinse mouth with water after eating Avoid spicy/salty foods Avoid straws Face/lip laceration Located on right lower outer lip/face, irregular measuring 2.0 cm, horizontal tracking but just inferior to the nancy border, no extension into muscle layer. Anesthesia was achieved from 3 mL of local lidocaine 1% with epinephrine. Would was copiously irrigated with sterile normal saline using a syringe. Approximation was obtained using 4, 5-0 nylon simple interrupted sutures. Dress with bacitracin ointment Suture removal in 5 days Include lip laceration instructions Right elbow skin tear Superficial measuring 3x3 cm, no indication for primary closure. Cleaned with sterile normal saline. Dressed with bacitracin, telfa, roll gauze. Include abrasion/skin tear instructions - : Fall Qualifiers: Encounter type: initial encounter Qualified Code(s): W19.XXXA - Unspecified fall, initial encounter Acute knee pain Qualifiers: Laterality: right Qualified Code(s): M25.561 - Pain in right knee Laceration of lip Qualifiers: Encounter type: initial encounter Qualified Code(s): S01.511A - Laceration without foreign body of lip, initial encounter
--- NOTE | 2021-07-06 17:20 | CT Scan Report ---
CT SCAN OF THE RIGHT KNEE WITHOUT IV CONTRAST CLINICAL HISTORY: Fall with right knee injury. COMPARISON STUDY: Radiographs of the right knee dated 07/06/2021. TECHNIQUE: CT scan of the right knee is performed from the distal femur to the proximal tibia and fib akin. Images are reviewed in the axial, sagittal, and coronal planes. IV contrast was not administered for this examination. A dose lowering technique was utilized adhering to the principles of ALARA. CT DOSE: 174.35 mGy.cm FINDINGS: The skeletal structures are osteopenic. There is no evidence of acute fracture. Tricompartm ental degenerative joint space narrowing is observed, greatest in the patellofemoral articulation. A 1.4 cm well-corticated suprapatellar ossific density is again noted. There are patellar enthesophytes and large marginal osteophytes, as well as degenerative beaking of the tibial spine. There is only t race joint effusion. Soft tissue edema is present around the knee. A large hyperdense fluid collectio n within the prepatellar soft tissues measures approximately 12 x 4 x 11.5 cm. This demonstrates an i nternal hematocrit level and is typical for a hematoma. This extends into the upper calf in the later al aspect of the knee. Advanced atherosclerotic calcification is observed in the regional arteries. T here is generalized atrophy of the regional musculature. IMPRESSION: 1. No fracture is identified. 2. Small joint effusion. 3. There is soft tissue edema around the knee with a large prepatellar soft tissue hematoma. 4. Osteopenia and degenerative change as above. ACT 112: Negative or not required by law. Dictated: 07/06/2021 5:00 PM Transcribed: 07/06/2021 5:17 PM Cristina [id number] [email or web address] Electronically signed by: Guillermo Paniagua M.D. 07/06/2021 5:19 PM
[2021-07-06 17:48] LABS: Hematocrit (blood only) 30.1 % (37-47); Hemoglobin 9.7 g/dL (12.0-16.0); Mean Corpuscular Hemoglobin 31.6 pg (25-34); Mean Corpuscular Hgb Conc 32.2 g/dL (32-36); RDW Coefficient of Variation 16.4 % (11.5-14.5); RDW Standard Deviation 58.7 fL (36.4-46.3); Red Blood Count 3.07 M/uL (4.2-5.4); White Blood Count 5.38 K/uL (4.8-10.8)
[2021-07-06 17:51] LABS: Mean Platelet Volume 9.9 fL (7.4-10.4); Platelet Count 88 K/uL (130-400)
[2021-07-06 18:04] LABS: Basophils # (auto) 0.03 K/uL (0-0.2); Basophils % (auto) 0.6 %; Eosinophils # (auto) 0.04 K/uL (0-0.5); Eosinophils % (auto) 0.7 %; Lymphocytes % (auto) 20.4 %; Monocytes # (auto) 0.66 K/uL (0.11-0.59); Monocytes % (auto) 12.3 %; Neutrophils # (auto) 3.55 K/uL (1.4-6.5)
[2021-07-06 18:23] LABS: Albumin Globulin Ratio 0.6 (0.9-2); Albumin Level 2.8 gm/dl (3.4-5.0); BUN Creatinine Ratio 11.9 (10-20); Bilirubin,Total 1.1 mg/dl (0.2-1.0); Creatinine Clr Calc Pharmacy 47.1 ml/min; Est GFR (African American) 74.5 ml/min; Est GFR (Non-African American) 64.3 ml/min; Potassium 3.5 mmol/L (3.5-5.1); Total Protein 7.8 gm/dl (6.0-8.3)
[2021-07-06 19:29] LABS: INR 1.3 (0.9-1.1); Prothrombin Time 13.6 Seconds (9.0-12.0)
--- NOTE | 2021-07-06 19:53 | History & Physical Report ---
Date of Service July 06, 2021 Assessment & Plan (1) Fall: (2) Hematoma: Plan: Admit to [facility] Patient presenting from home after mechanical fall. In the ED, required sutures to right lower lip laceration. Also found to have significant right knee hematoma. RLE neurochecks to monitor closely for developing compartment syndrome On Eliquis which will be held Orthopedics consult for right knee hematoma PT/OT, likely placement to [facility] in the next day or so (3) Anemia: (4) Thrombocytopenia: Plan: Hgb 9.7, platelet count 88K Baseline Hgb ~ 11.0, chronic thrombocytopenia per review of records baseline runs in the low 100s Likely acute blood loss anemia due to large hematoma Monitor CBC (5) Paroxysmal atrial fibrillation: Plan: Rhythm controlled on amiodarone, rate controlled on metoprolol Holding Eliquis as above (6) Chronic diastolic CHF (congestive heart failure): Plan: Appears euvolemic Utilizes Lasix on a as needed basis (7) DVT prophylaxis: Plan: SCDs due to hematoma History of Present Illness Chief Complaint: Fall Primary Care Provider: Eliazar Reis MD 85-year-old female PMH paroxysmal atrial fibrillation anticoagulated on Eliquis, chronic diastolic CHF, MGUS, history of paraesophageal hernia repair, and other problem listed below who presents to the ED for evaluation after a fall. Patient reports that she tripped over a suitcase. She fell to the ground hitting her right knee and right side of her lip causing a laceration. Patient denies any preceding chest pain or shortness of breath. No associated lightheadedness or dizziness. Patient denies loss of consciousness. Reports she otherwise has been feeling well recently. No other recent illnesses, fevers, chills. Denies abdominal pain, nausea, vomiting, diarrhea. No urinary symptoms. In the ED, patient required sutures for her lip laceration. Imaging studies show that patient has a large hematoma over her right knee. Labs show Hgb 9.7, platelet count 88K. Patient is hemodynamically stable. Allergies Allergy/AdvReac Type Severity Reaction Status Date / Time simvastatin Allergy Unknown ELEVATED Verified 07/06/21 17:48 LIVER ENZYMES oxaprozin AdvReac Intermediate MAKES FEEL Verified 07/06/21 17:48 DEPRESSED Home Medications Medication Instructions Recorded Confirmed Type magnesium oxide 500 mg tablet 500 mg PO DAILY 07/15/20 07/06/21 History pravastatin 80 mg tablet 80 mg PO DAILY 07/15/20 07/06/21 History prednisolone acetate 1 % eye 1 drp OPB HS 07/15/20 07/06/21 History drops,suspension sodium di- and 2 tab PO TID 07/15/20 07/06/21 History monophosphate-potassium phos monobasic 250 mg tablet (Phospha 250 Neutral) solifenacin 5 mg tablet 5 mg PO QAM 07/15/20 07/06/21 History apixaban 5 mg tablet (Eliquis) 5 mg PO BID #60 tab 07/19/20 07/06/21 Rx acetaminophen 500 mg tablet 1,000 mg PO BID PRN 06/13/21 07/06/21 History (Tylenol Extra Strength) amiodarone 200 mg tablet 200 mg PO QAM 06/13/21 07/06/21 History ascorbic acid (vitamin C) 500 mg 500 mg PO QAM 06/13/21 07/06/21 History tablet (Vitamin C) ferrous sulfate 325 mg (65 mg 325 mg PO Q OTHER DAY 06/13/21 07/06/21 History iron) tablet (iron) furosemide 20 mg tablet 20 mg PO DAILY PRN 06/13/21 07/06/21 History potassium chloride 20 mEq 10 meq PO TID 06/13/21 07/06/21 History tablet,extended release(part/cryst) fexofenadine 180 mg tablet 180 mg PO HS 07/06/21 07/06/21 History metoprolol succinate 25 mg 25 mg PO DAILY 07/06/21 07/06/21 History tablet,extended release 24 hr pantoprazole 40 mg tablet,delayed 40 mg PO DAILY 07/06/21 07/06/21 History release peg 400-propylene glycol (PF) 0.4 1 drp OPHTHALMIC (EYE) QID PRN 07/06/21 07/06/21 History %-0.3 % eye drops in a dropperette (Systane (PF)) Past Med/Surg History Medical History Chronic diastolic CHF (congestive heart failure) GERD (gastroesophageal reflux disease) HLD (hyperlipidemia) HTN (hypertension) MGUS (monoclonal gammopathy of unknown significance) Paroxysmal atrial fibrillation Surgical History History of total knee arthroplasty S/P aortic valve replacement with bioprosthetic valve S/P repair of paraesophageal hernia Family History Other Family history non-contributory Social History Smoking Status: Never smoker Second Hand Exposure: No; Hx Alcohol Use: Yes Alcohol type: hard liquor Hx Substance Use: No Preferred Language: Yemeni Communication 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: 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 Beliefs That Will Affect Care: None Current Living Situation: Family Feels Safe at Home: Yes Assistive Devices: Walker Review of Systems Review of Systems: ROS per HPI, all other systems reviewed and negative Physical Exam Constitutional: WD/WN, vitals as above Eyes: PERRL, conjunctivae normal, anicteric sclerae ENMT: external ear and nose normal, oropharynx normal Mouth: + lip abnormality (Right lower lip laceration s/p sutures) Mild bruising noted over right cheek Respiratory: normal respiratory effort, lungs clear to auscultation Cardiovascular: Rate/Rhythm: regular rate and regular rhythm Vessels: normal peripheral pulses Extremities: no pedal edema Gastrointestinal (Abdomen): normal bowel sounds, soft, nontender, no hepatosplenomegaly Musculoskeletal: Significant edema and ecchymosis noted over right knee Skin: no rashes, warm and dry Neurologic: PERRL, EOMI, accommodation nl, no face palsy, no dysarthria Psychiatric: A+Ox3, euthymic affect Results & Data Results & Data ([facility]) Vital Signs (Past 12 Hours) Vital Signs Pulse Pulse Resp BP BP Pulse Ox 07/06/21 18:15 56 L 18 165/67 H 97 07/06/21 16:10 80 18 185/81 H 95 07/06/21 14:26 51 L 15 163/101 H 100 Laboratory Results Short CBC 07/06/21 Range/Units 17:35 WBC 5.38 (4.8-10.8) K/uL Hgb 9.7 L (12.0-16.0) g/dL Hct 30.1 L (37-47) % Plt Count 88 L (130-400) K/uL BMP 07/06/21 17:35 Sodium 138 Potassium 3.5 Chloride 105 Carbon Dioxide 26 BUN 10 Creatinine 0.84 Glucose 96 Calcium 8.0 L Liver Function 07/06/21 Range/Units 17:35 Total Bilirubin 1.1 H (0.2-1.0) mg/dl AST 29 (13-39) U/L ALT 24 (7-52) U/L Alkaline Phosphatase 109 H (34-104) U/L Albumin 2.8 L (3.4-5.0) gm/dl Diagnostic Findings Cervical Spine CT 07/06/21 14:48 CT SCAN OF THE CERVICAL SPINE CLINICAL HISTORY: Trauma. Fall. COMPARISON STUDY: No priors. TECHNIQUE: CT scan of the cervical spine is performed from the skull base to the upper thoracic spine. Images are reviewed in the axial, sagittal, and coronal planes. IV contrast was not administered for this examination. A dose lowering technique was utilized adhering to the principles of ALARA. FINDINGS: Skeletal structures: The skeletal structures are osteopenic. There is no evidence of fracture or subluxation involving the cervical spine. Vertebral body height and alignment are maintained. There is minimal anterolisthesis at C7-T1 and T2-T3. Anterior osteophytes are seen throughout. The odontoid process and lateral masses are intact. The atlantoaxial articulation is preserved noting productive degenerative change. The spinous processes appear intact. There is moderate to advanced multilevel cervical spondylosis. Uncovertebral and facet arthropathy contribute to neural foraminal narrowing at most levels. Intervertebral discs: There is moderate to advanced disc space narrowing seen at all cervical levels, greatest at C3-C4 and C4-C5. Central canal: Posterior disc osteophyte complexes are seen at all cervical levels from C3 to C4 through C6-C7. This likely contributes to multilevel acquired compromise of the central canal. Soft tissues: The prevertebral and paraspinous soft tissues are within normal limits. Calcified sialoliths are noted in the right parotid gland. There is atherosclerotic calcification of the carotid bulbs. Calvarium: The visualized calvarium at the skull base appears intact. Brain parenchyma: Partially visualized brain parenchyma at the skull base is within normal limits. Sinuses and mastoids: The visualized paranasal sinuses are clear. The mastoid air cells are well pneumatized. Lung apices: Clear as visualized. IMPRESSION: 1. There is no evidence of fracture or subluxation involving the cervical spine. 2. Osteopenia and spondylotic change as above. ACT 112: Negative or not required by law. Electronically signed by: Guillermo Paniagua M.D. 07/06/2021 3:[address] 07/06/21 14:48 CT facial bones wo con CLINICAL HISTORY: 85 years-old Female presenting with fall hit head/face on NOAC. Acute head injury status post fall COMPARISON STUDY: CT head and cervical spine studies of same day TECHNIQUE: High-resolution CT scan of the facial bones is performed. Images are reviewed in the axial, sagittal, and coronal planes. IV contrast was not administered for this examination. A dose lowering technique was utilized adhering to the principles of ALARA. CT DOSE: 1064.58 mGy.cm FINDINGS: No acute intracranial abnormality identified. Prior bilateral lens repair. Tiny contusion of the right cheek. Streak artifact from dental amalgam hardware. Trace right mastoid effusion. Left mastoid air cells and paranasal sinuses are generally clear. Mild leftward bowing and spurring of the nasal septum. Multilevel degenerative changes of the cervical spine. IMPRESSION: No acute facial bone fracture identified. ACT 112: Negative or not required by law. The above report was generated using voice recognition software. It may contain grammatical, syntax or spelling errors. Electronically signed by: Miguel Angel Cooper M.D. 07/06/2021 3:[address] 07/06/21 14:48 CT SCAN OF THE BRAIN WITHOUT IV CONTRAST CLINICAL HISTORY: Fall. Head injury. COMPARISON STUDY: No priors. TECHNIQUE: Unenhanced axial CT scan of the brain is performed from the vertex to the skull base. A dose lowering technique was utilized adhering to the principles of ALARA. FINDINGS: Brain parenchyma: There are age-related involutional changes noting mild subcortical and periventricular microangiopathic change. There is no hemorrhage, mass effect, or evidence of acute territorial ischemia by CT criteria. 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 Colin-white matter differentiation is preserved. No extra-axial fluid collection is seen. Ventricles, sulci, cisterns: Prominent secondary to involutional change. Intracranial vasculature: There is atherosclerotic calcification of the cavernous carotid and vertebral arteries. Calvarium: The skeletal structures are osteopenic. No depressed calvarial fracture is identified. Sinuses and mastoids: The visualized paranasal sinuses are clear. The mastoid air cells are well pneumatized. Orbits: The bony orbits are grossly intact. There are bilateral ocular lens implants. IMPRESSION: There is no hemorrhage, mass effect, or evidence of acute territ orial ischemia by CT criteria. ACT 112: Negative or not required by law. Electronically signed by: Guillermo Paniagua M.D. 07/06/2021 3:39 PM Knee X-Ray 07/06/21 14:48 XR knee RT 1 or 2V routine HISTORY: 85 years-old Female r knee pain Right knee pain status post fall COMPARISON: None TECHNIQUE: 2 views of the right knee FINDINGS: Demineralized appearance of the bones. 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 2.1 cm corticated ossification within the suprapatellar space. The lateral view is limited secondary to patient positioning. Arterial calcifications. Small joint effusion. Diffuse soft tissue swelling with marked prepatellar soft tissue prominence. IMPRESSION: 1. Limited lateral view secondary to positioning. No acute fracture or dislocation identified. 2. Marked prepatellar soft tissue prominence. Correlate clinically to exclude a posttraumatic soft tissue hematoma. ACT 112: Negative or not required by law. The above report was generated using voice recognition software. It may contain grammatical, syntax or spelling errors. Electronically signed by: Miguel Angel Cooper M.D. 07/06/2021 3:[address] 07/06/21 16:05 CT SCAN OF THE RIGHT KNEE WITHOUT IV CONTRAST CLINICAL HISTORY: Fall with right knee injury. COMPARISON STUDY: Radiographs of the right knee dated 07/06/2021. TECHNIQUE: CT scan of the right knee is performed from the distal femur to the proximal tibia and fibula. Images are reviewed in the axial, sagittal, and co aldo planes. IV contrast was not administered for this examination. A dose lowering technique was utilized adhering to the principles of ALARA. CT DOSE: 174.35 mGy.cm FINDINGS: The skeletal structures are osteopenic. There is no evidence of acute fracture. Tricompartmental degenerative joint space narrowing is observed, greatest in the patellofemoral articulation. A 1.4 cm well-corticated sup rapatellar ossific density is again noted. There are patellar enthesophytes and large marginal osteophytes, as well as degenerative beaking of the tibial spine. There is only trace joint effusion. Soft tissue edema is present around the knee. A large hyperdense fluid collection within the prepatellar soft tissues measures approximately 12 x 4 x 11.5 cm. This demonstrates an internal hematocrit level and is typical for a hematoma. This extends into the upper calf in the lateral aspect of the knee. Advanced atherosclerotic calcification is observed in the regional arteries. There is generalized atrophy of the regional musculature. IMPRESSION: 1. No fracture is identified. 2. Small joint effusion. 3. There is soft tissue edema around the knee with a large prepatellar soft tissue hematoma. 4. Osteopenia and degenerative change as above. ACT 112: Negative or not required by law. Dictated: 07/06/2021 5:00 PM Transcribed: 07/06/2021 5:17 PM Cristina [id number] KEELEY_Rosalba Electronically signed by: Guillermo Paniagua M.D. 07/06/2021 5:19 PM Code Status & VTE Plan Code Status Patient is a full code as per my discussion with her. Patient states that her daughters Nicole and Cristina would be her decision makers in the event to which been able to. VTE Prophylaxis Plan VTE Prophylaxis will be ordered: No Supervising Physician Co-Signing Physician Notes Patient was seen and evaluated independently. Chart was reviewed. Case was discussed with NELLA. Agree with assessment and plan above (1) Fall Encounter type: initial encounter Qualified Code(s): W19.XXXA - Unspecified fall, initial encounter
--- NOTE | 2021-07-06 22:15 | Orthopedic Consultation ---
Date of Service July 06, 2021 Assessment & Plan (1) Hematoma: There is a superficial and somewhat large hematoma over the right knee. Recommend conservative measures. Apply knee immobilizer for comfort and soft tissue rest. Should apply ice to SCDs to the noninjured side. If possible, ho ld Eliquis to reduce bleeding time. We will consider aspiration, but prefer 24 hours for stabilization of any clot in order to not perpetuate bleeding. Prefer to minimize ambulation initially. We will reevaluate tomorrow for aspiration for comfort and if the skin appears to be compromised. History of Present Illness Reason for Consultation: Right knee superficial posttraumatic hematoma Requesting Physician: . Attending Physician: Jonnie Coreas MD 85-year-old female sustained a fall at home today resulting in direct impact to her right knee and laceration on her face. She was unable to bear weight on the right lower extremity. she was found by her daughter and brought to the emergency room. ED evaluation showed no fractures about the right lower extremity. There was significant swelling and a CT scan revealed a layered hematoma in the superficial soft tissues. She reports no prior significant injuries to the right knee. She is being treated by Dr. Virk for osteoarthritis and had considered a knee replacement on that side. She had a successful left total knee replacement in 2017. She reports significant pain but tolerable when still. She has no numbness or tingling. She is able to move her ankle and digits with minimal discomfort. Her oldest daughter is at the bedside and she reports that she is on Eliquis for atrial fibrillation. Allergies Allergy/AdvReac Type Severity Reaction Status Date / Time simvastatin Allergy Unknown ELEVATED Verified 07/06/21 17:48 LIVER ENZYMES oxaprozin AdvReac Intermediate MAKES FEEL Verified 07/06/21 17:48 DEPRESSED Home Medications Medication Instructions Recorded Confirmed Type magnesium oxide 500 mg tablet 500 mg PO DAILY 07/15/20 07/06/21 History pravastatin 80 mg tablet 80 mg PO DAILY 07/15/20 07/06/21 History prednisolone acetate 1 % eye 1 drp OPB HS 07/15/20 07/06/21 History drops,suspension sodium di- and 2 tab PO TID 07/15/20 07/06/21 History monophosphate-potassium phos monobasic 250 mg tablet (Phospha 250 Neutral) solifenacin 5 mg tablet 5 mg PO QAM 07/15/20 07/06/21 History apixaban 5 mg tablet (Eliquis) 5 mg PO BID #60 tab 07/19/20 07/06/21 Rx acetaminophen 500 mg tablet 1,000 mg PO BID PRN 06/13/21 07/06/21 History (Tylenol Extra Strength) amiodarone 200 mg tablet 200 mg PO QAM 06/13/21 07/06/21 History ascorbic acid (vitamin C) 500 mg 500 mg PO QAM 06/13/21 07/06/21 History tablet (Vitamin C) ferrous sulfate 325 mg (65 mg 325 mg PO Q OTHER DAY 06/13/21 07/06/21 History iron) tablet (iron) furosemide 20 mg tablet 20 mg PO DAILY PRN 06/13/21 07/06/21 History potassium chloride 20 mEq 10 meq PO TID 06/13/21 07/06/21 History tablet,extended release(part/cryst) fexofenadine 180 mg tablet 180 mg PO HS 07/06/21 07/06/21 History metoprolol succinate 25 mg 25 mg PO DAILY 07/06/21 07/06/21 History tablet,extended release 24 hr pantoprazole 40 mg tablet,delayed 40 mg PO DAILY 07/06/21 07/06/21 History release peg 400-propylene glycol (PF) 0.4 1 drp OPHTHALMIC (EYE) QID PRN 07/06/21 07/06/21 History %-0.3 % eye drops in a dropperette (Systane (PF)) Past Med/Surg History Medical History Chronic diastolic CHF (congestive heart failure) GERD (gastroesophageal reflux disease) HLD (hyperlipidemia) HTN (hypertension) MGUS (monoclonal gammopathy of unknown significance) Paroxysmal atrial fibrillation Surgical History History of total knee arthroplasty S/P aortic valve replacement with bioprosthetic valve S/P repair of paraesophageal hernia Family History Other Family history non-contributory Social History Smoking Status: Never smoker Second Hand Exposure: No; Hx Alcohol Use: Yes Alcohol type: hard liquor Hx Substance Use: No Preferred Language: Khmer Communication Ability: Effective 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 Physical Exam Left lower extremity: Atraumatic in appearance, no effusion full range of motion the knee and ankle. Right lower extremity: Abundant soft tissue edema and ecchymosis about the knee. There is tense swelling on the dorsal side of the knee. Ecchymosis settles out towards the tibial tubercle and medial retinacular. It is soft and compressible but more tense dorsally. No areas of warmth or skin breakdown. Full active range of motion dorsiflexion/plantarflexion/EHL. Palpable DP/PT pulse. Calf is soft and compressible. Thigh is soft and compressible. Nontender to the remainder of the lower extremity outside the area of edema about the knee. Constitutional well developed and well nourished; no acute distress and not intoxicated appearing ENMT Mouth: + lip abnormality (Laceration, closed) Respiratory normal respiratory effort; no respiratory distress Cardiovascular Extremities: normal capillary refill; no edema Skin no rashes, warm and dry Psychiatric A+Ox3, euthymic affect Results & Data Results & Data Laboratory Results H & H 07/06/21 Range/Units 17:35 Hgb 9.7 L (12.0-16.0) g/dL Hct 30.1 L (37-47) % Coagulation 07/06/21 Range/Units 17:35 INR 1.3 H (0.9-1.1) Diagnostic Findings Radiographs of the knee and advanced imaging with CT shows no acute injury or fracture. There is a area of hematoma collection in the subcutaneous soft tissues. PG Care Time/CCT Total # of Minutes Spent Total Time Spent with Patient: Total time spent is greater than 50% in coordination of care (as documented) at patient's floor/unit and/or counseling patient: Coding Level of Care Code 71498 Inpt Consult Level 4 Diagnoses Hematoma T14.8XXA
[2021-07-06] MEDS: ACETAMINOPHEN 325 MG TAB PO SCH (23:32)
[2021-07-06] MEDS: FEXOFENADINE HCL 180 MG TAB PO SCH (23:33)
[2021-07-06] MEDS: POT PHOSPHATE MONOBASIC W/ SOD TAB PO SCH (23:33)
[2021-07-06] MEDS: POTASSIUM CHLORIDE 10 MEQ TABCR PO SCH (23:34)
[2021-07-06] MEDS: prednisoLONE acetate 1% OP SUSP 5 ML BTL OP SCH (23:35)
[2021-07-07] MEDS ORDERED: traMADol HCL 50 MG TABLET PO PRN (00:23)
[2021-07-07] MEDS ORDERED: MoRPHine SULFATE 2 MG/ML CARP IV PRN (00:23)
[2021-07-07] MEDS: ACETAMINOPHEN 325 MG TAB PO SCH ×3 (05:42→21:14)
[2021-07-07 06:17] LABS: Hematocrit (blood only) 24.5 % (37-47); Hemoglobin 8.1 g/dL (12.0-16.0); Mean Corpuscular Hemoglobin 32.3 pg (25-34); Mean Corpuscular Hgb Conc 33.1 g/dL (32-36); Mean Corpuscular Volume 97.6 fL (80-100); RDW Coefficient of Variation 16.7 % (11.5-14.5); RDW Standard Deviation 58.8 fL (36.4-46.3); Red Blood Count 2.51 M/uL (4.2-5.4)
[2021-07-07 06:28] LABS: Mean Platelet Volume 9.8 fL (7.4-10.4); Platelet Count 88 K/uL (130-400)
[2021-07-07 06:39] LABS: BUN Creatinine Ratio 15.3 (10-20); Calcium 7.7 mg/dl (8.5-10.1); Est GFR (African American) 98.2 ml/min; Est GFR (Non-African American) 84.8 ml/min; Potassium 3.4 mmol/L (3.5-5.1)
[2021-07-07 07:00] LABS: Platelet Estimate Decreased (Normal)
[2021-07-07] MEDS: POTASSIUM CHLORIDE 10 MEQ TABCR PO SCH ×3 (08:01→21:12)
[2021-07-07] MEDS: PRAVASTATIN SOD 40 MG TAB PO SCH (08:01)
[2021-07-07] MEDS: POT PHOSPHATE MONOBASIC W/ SOD TAB PO SCH ×3 (08:01→21:13)
[2021-07-07] MEDS: PANTOprazole 40 MG TAB PO SCH (08:03)
[2021-07-07] MEDS: FERROUS SULFATE 325 MG TAB PO SCH (08:03)
[2021-07-07] MEDS: METOPROLOL SUCC 25MG EXT REL TAB PO SCH (08:03)
[2021-07-07] MEDS: AMIODARONE 200 MG TAB PO SCH (08:03)
[2021-07-07] MEDS: MAGNESIUM OXIDE 400 MG TAB PO SCH (08:03)
[2021-07-07] MEDS ORDERED: LIDO/EPINEPHRINE/SOD BICARB 20 ML VIAL INFIL ONE (14:23)
[2021-07-07] MEDS ORDERED: LIDOCAINE 1% LOCAL 20 ML VIAL ONE (14:25)
[2021-07-07] MEDS ORDERED: LIDOCAINE 1% LOCAL 20 ML VIAL INFIL ONE (14:30)
--- NOTE | 2021-07-07 14:32 | Hospitalist Progress Note ---
Date of Service July 07, 2021 Assessment & Plan (1) Fall: (2) Hematoma: (3) Anemia: (4) Thrombocytopenia: (5) Paroxysmal atrial fibrillation: (6) Chronic diastolic CHF (congestive heart failure): (7) DVT prophylaxis: Plan: Mechanical Fall -No fractures but patient with multiple bruises, most notably her right knee which is markedly swollen with large hematoma -PT/OT. Rehab is recommended Right knee hematoma Acute blood loss anemia -continue to hold Eliquis -Appreciate Ortho input regarding hematoma management -will give lasix 20mg IV once now to help with trace bilateral leg swelling PAF on Eliquis -Eliquis on hold due to right knee hematoma -Toprol 25mg daily, amiodarone 200mg daiy -Patient reports last fall was in April. -Family requesting discussion with Cardiology whether she can come off her Eliquis permanently. Consult placed Chronic diastolic CHF -at home takes lasix 20mg PO PRN. trace bilateral leg edema. Will give lasix 20mg IV once and reassess tomorrow DVT ppx -hold AC with current hematoma Admission and Anticipated Discharge Date Admission Date: July 06, 2021 Subjective Worked with PT today using knee immobilizer Right knee still very swollen with signs of blistering Physical Exam Physical Exam: No acute distress. Sitting in her chair Eyes: Bruising below right eye ENMT: Bruising bottom lip Respiratory: breathing comfortably on room air Cardiovascular: regular rate and rhythm Gastrointestinal (Abdomen): soft Musculoskeletal: right knee with significant swelling and also with small fluid filled blister Bilateral legs with trace edema Skin: multiple bruises Results & Data Results & Data ([facility]) Vital Signs (Past 12 Hours) Vital Signs Temp Pulse Resp BP Pulse Ox 07/07/21 07:09 36.7 C 62 16 136/59 L 99 Laboratory Results Short CBC 07/06/21 07/07/21 Range/Units 17:35 06:03 WBC 5.38 4.70 L (4.8-10.8) K/uL Hgb 9.7 L 8.1 L (12.0-16.0) g/dL Hct 30.1 L 24.5 L (37-47) % Plt Count 88 L 88 L (130-400) K/uL BMP 07/06/21 07/07/21 17:35 06:03 Sodium 138 139 Potassium 3.5 3.4 L Chloride 105 108 H Carbon Dioxide 26 25 BUN 10 9 Creatinine 0.84 0.59 L Glucose 96 91 Calcium 8.0 L 7.7 L Liver Function 07/06/21 Range/Units 17:35 Total Bilirubin 1.1 H (0.2-1.0) mg/dl AST 29 (13-39) U/L ALT 24 (7-52) U/L Alkaline Phosphatase 109 H (34-104) U/L Albumin 2.8 L (3.4-5.0) gm/dl Medications Administered Current Inpatient Medications Acetaminophen (Acetaminophen 325 Mg Tab) 650 mg PO Q8 STEPHANIE Stop: 08/05/21 22:10 Last Admin: 07/07/21 05:42 Dose: 650 mg Documented by: Amiodarone HCl (Amiodarone 200 Mg Tab) 200 mg PO QAM STEPHANIE Stop: 08/06/21 08:59 Last Admin: 07/07/21 08:03 Dose: 200 mg Documented by: Ferrous Sulfate (Ferrous Sulfate 325 Mg Tab) 325 mg PO Q2D@0900 STEPHANIE Stop: 08/06/21 08:59 Last Admin: 07/07/21 08:03 Dose: 325 mg Documented by: Fexofenadine HCl (Fexofenadine Hcl 180 Mg Tab) 180 mg PO HS STEPHANIE Stop: 08/05/21 22:10 Last Admin: 07/06/21 23:33 Dose: 180 mg Documented by: Lidocaine HCl (Lidocaine 1% Local 20 Ml Vial) 20 ml INFIL NOW ONE Stop: 07/07/21 14:31 Magnesium Oxide (Magnesium Oxide 400 Mg Tab) 400 mg PO DAILY STEPHANIE Stop: 08/06/21 08:59 Last Admin: 07/07/21 08:03 Dose: 400 mg Documented by: Metoprolol Succinate (Metoprolol Succ 25mg Ext Rel Tab) 25 mg PO DAILY STEPHANIE Stop: 08/06/21 08:59 Last Admin: 07/07/21 08:03 Dose: 25 mg Documented by: Morphine Sulfate (Morphine Sulfate 2 Mg/Ml Carp) 2 mg IV Q3H PRN PRN Reason: Pain Stop: 07/21/21 00:22 Last Admin: 07/07/21 00:52 Dose: 2 mg Documented by: Oxybutynin Chloride (Oxybutynin Chloride 5 Mg Tab) 5 mg PO QAM STEPHANIE Stop: 08/07/21 08:59 Pantoprazole Sodium (Pantoprazole 40 Mg Tab) 40 mg PO DAILY [facility]IE Stop: 08/06/21 08:59 Last Admin: 07/07/21 08:03 Dose: Not Given Documented by: Potassium Chloride (Potassium Chloride 10 Meq Tabcr) 10 meq PO TID STEPHANIE Stop: 08/05/21 22:10 Last Admin: 07/07/21 08:01 Dose: 10 meq Documented by: Potassium Phosphate (Pot Phosphate Monobasic W/ Sod Tab) 2 tab PO TID STEPHANIE Stop: 08/05/21 22:10 Last Admin: 07/07/21 08:01 Dose: 2 tab Documented by: Pravastatin Sodium (Pravastatin Sod 40 Mg Tab) 80 mg PO DAILY STEPHANIE Stop: 08/06/21 08:59 Last Admin: 07/07/21 08:01 Dose: 80 mg Documented by: Prednisolone Acetate (Prednisolone Acetate 1% Op Susp 5 Ml Btl) 1 drops OP HS STEPHANIE Stop: 08/05/21 22:10 Last Admin: 07/06/21 23:35 Dose: 1 drops Documented by: Tramadol HCl (Tramadol Hcl 50 Mg Tablet) 25 - 50 mg PO Q4H PRN PRN Reason: Pain Stop: 08/06/21 00:22 (1) Fall Encounter type: initial encounter Qualified Code(s): W19.XXXA - Unspecified fall, initial encounter
--- NOTE | 2021-07-07 16:23 | Cardiology Consultation ---
Date of Consultation July 07, 2021 Assessment & Plan (1) Paroxysmal atrial fibrillation: (2) Fall: (3) Ambulatory dysfunction: (4) Hematoma: (5) Anemia: (6) Thrombocytopenia: 85-year-old female admitted with mechanical fall and significant knee and facial trauma. Reports gait and steadiness somewhat progressive over the past 3 months. She does not reside in a monitored setting. At the time of her aortic valve replacement a left atrial clip was applied. We discussed this interve ntion which lowers her reduce of cerebrovascular accident in the setting of paroxysmal atrial fibrillation. She understands that the benefit may not be as effective as chronic anticoagulation although I feel the risk of chronic anticoagulation outweighs benefit given recent falls and gait instability. Eliquis will remain on hold. If patient's gait stability improves and or she is living in a monitored setting restarting chronic anticoagulation may be considered. She will follow up with her outpatient speech and language assistant, Dr. Salomon to make final decisions in this regard. Continue amiodarone for rhythm control. Thank you for allow me to participate in the care of your patient. History of Present Illness Reason for Consultation: ? Ongoing need for anticoagulation Requesting Physician: Dr. Coreas Attending Physician: Jonnie Coreas MD History of Present Illness 85-year-old female present to the emergency department status post fall with facial and knee trauma. Orthopedic surgery consulted for significant right- sided knee hematoma. Aspiration was attempted today, however, only 5 cc withdrawn due to clotting. She carries a history of paroxysmal atrial fibrilla tion chronically anticoagulated Eliquis, chronic diastolic CHF, MGUS, chronic anemia, chronic thrombocytopenia, and paraesophageal hernia repair. Aortic valve replacement performed in 2016. During that surgery a left atrial clip was also applied. Patient reports tripping over a suitcase prior to admission. She fell striking her face and her right knee. Reports another fall occurring in April without significant trauma. Although she notes that she is quite unsteady without her walker. She lives with a family member and is not monitored throughout the day. No signs/symptoms of GI/ blood loss. Denies chest pain or unusual shortness of breath. No palpitations. ECG on admission demonstrates sinus rhythm. She is chronically treated with amiodarone and metoprolol. [id number] present for examination. Offers no additional concerns/complaints. Allergies Allergy/AdvReac Type Severity Reaction Status Date / Time simvastatin Allergy Unknown ELEVATED Verified 07/06/21 17:48 LIVER ENZYMES oxaprozin AdvReac Intermediate MAKES FEEL Verified 07/06/21 17:48 DEPRESSED Home Medications Medication Instructions Recorded Confirmed Type magnesium oxide 500 mg tablet 500 mg PO DAILY 07/15/20 07/06/21 History pravastatin 80 mg tablet 80 mg PO DAILY 07/15/20 07/06/21 History prednisolone acetate 1 % eye 1 drp OPB HS 07/15/20 07/06/21 History drops,suspension sodium di- and 2 tab PO TID 07/15/20 07/06/21 History monophosphate-potassium phos monobasic 250 mg tablet (Phospha 250 Neutral) solifenacin 5 mg tablet 5 mg PO QAM 07/15/20 07/06/21 History apixaban 5 mg tablet (Eliquis) 5 mg PO BID #60 tab 07/19/20 07/06/21 Rx acetaminophen 500 mg tablet 1,000 mg PO BID PRN 06/13/21 07/06/21 History (Tylenol Extra Strength) amiodarone 200 mg tablet 200 mg PO QAM 06/13/21 07/06/21 History ascorbic acid (vitamin C) 500 mg 500 mg PO QAM 06/13/21 07/06/21 History tablet (Vitamin C) ferrous sulfate 325 mg (65 mg 325 mg PO Q OTHER DAY 06/13/21 07/06/21 History iron) tablet (iron) furosemide 20 mg tablet 20 mg PO DAILY PRN 06/13/21 07/06/21 History potassium chloride 20 mEq 10 meq PO TID 06/13/21 07/06/21 History tablet,extended release(part/cryst) fexofenadine 180 mg tablet 180 mg PO HS 07/06/21 07/06/21 History metoprolol succinate 25 mg 25 mg PO DAILY 07/06/21 07/06/21 History tablet,extended release 24 hr pantoprazole 40 mg tablet,delayed 40 mg PO DAILY 07/06/21 07/06/21 History release peg 400-propylene glycol (PF) 0.4 1 drp OPHTHALMIC (EYE) QID PRN 07/06/21 07/06/21 History %-0.3 % eye drops in a dropperette (Systane (PF)) Patient History Medical History Chronic diastolic CHF (congestive heart failure) GERD (gastroesophageal reflux disease) HLD (hyperlipidemia) HTN (hypertension) MGUS (monoclonal gammopathy of unknown significance) Paroxysmal atrial fibrillation Surgical History History of total knee arthroplasty S/P aortic valve replacement with bioprosthetic valve S/P repair of paraesophageal hernia Family History Other Family history non-contributory Social History Smoking Status: Never smoker Second Hand Exposure: No; Hx Alcohol Use: Yes Alcohol type: hard liquor Hx Substance Use: No Preferred Language: Belarusian Communication Ability: Effective Log Yard Manager Required: No Beliefs That Will Affect Care: None Current Living Situation: Family Feels Safe at Home: Yes Assistive Devices: Walker Review of Systems Review of Systems: All systems reviewed & are unremarkable except as noted in Subjective Physical Exam Constitutional: well developed and well nourished ENMT: Mouth: + mouth trauma Respiratory: normal respiratory effort; no respiratory distress, no labored breathing and no retractions Auscultation: lungs clear to auscultation bilaterally; no crackles, no rales, no rhonchi and no wheezes Cardiovascular: Rate/Rhythm: regular rate and regular rhythm Heart Sounds: normal S1, normal S2 and + murmur (2/6 systolic ejection murmur heard best at the base) Vessels: radial pulses present; no JVD and no carotid bruit Extremities: no edema Gastrointestinal (Abdomen): Inspection/Auscultation: abdomen normal to inspection and normal bowel sounds; abdomen not distended Percussion/Palpation: abdomen soft; abdomen nontender, no guarding and abdomen not rigid Musculoskeletal: Knee: + effusion (Right knee hematoma) Neurologic: CN's II-XI intact bilaterally and moves all extremities; no focal motor deficits Psychiatric: A+Ox3, euthymic affect Results & Data ([facility]) Vital Signs (Past 12 Hours) Vital Signs Temp Pulse Resp BP Pulse Ox 07/07/21 15:03 36.6 C 54 L 16 101/47 L 100 07/07/21 07:09 36.7 C 62 16 136/59 L 99 (1) Fall Encounter type: initial encounter Qualified Code(s): W19.XXXA - Unspecified fall, initial encounter
--- NOTE | 2021-07-07 16:54 | Orthopedic Progress Note ---
Date of Service July 07, 2021 Assessment & Plan (1) Hematoma: -Due to early skin breakdown, hematoma drainage was attempted at bedside. Unfortunately only yielded about 5 cc of bloddy drainage. Knee dressed w/ 4 x 4 gauze, abd pad, and JO ANN wrap -Dressing changes daily prn if saturated -WBAT to RLE -SCD to LLE. Disposition: Remain inpatient d/t medical issues. Will follow along. Discussed w/ Dr. Soto who was present for procedure. Subjective Knee feels a little better today. Was able to get OOB to bathroom. Review of Systems All systems reviewed & are unremarkable except as noted in HPI & below. Physical Exam General: Pleasant 85 y/o/f resting in no acute distress RLE: Large hematoma surrounding right knee. Epidermolysis noted along the medial aspect of the right knee. Hematoma less tense today, still w/ tenderness globally. ROM limited passively and actively d/t pain and swelling. Distally N/V/I . Results & Data Results & Data Laboratory Results Reviewed . Diagnostic Findings Reviewed . PG Care Time/CCT Total # of Minutes Spent Total Time Spent with Patient: Total time spent is greater than 50% in coordination of care (as documented) at patient's floor/unit and/or counseling patient: Coding Level of Care Code 75197 Subseq Hosp Care Lvl 3 Diagnoses Hematoma T14.8XXA Orthopedic Procedure Right superficial knee hematoma aspiration: Using sterile technique and a 16- gauge needle, the superficial hematoma was aspirated using a 60 cc syringe. There was minimal yield of approximately 5 mL. Skin was sterilized with accommodation of alcohol and iodine swab. The patient tolerated procedure well, and the site was dressed sterilely.
[2021-07-07] MEDS: prednisoLONE acetate 1% OP SUSP 5 ML BTL OP SCH (21:12)
[2021-07-07] MEDS: FEXOFENADINE HCL 180 MG TAB PO SCH (21:14)
[2021-07-07] MEDS ORDERED: SODIUM CHLORIDE 0.9% 500 ML IV ONE (22:36)
[2021-07-08] MEDS: ACETAMINOPHEN 325 MG TAB PO SCH ×3 (05:09→21:58)
[2021-07-08] MEDS: METOPROLOL SUCC 25MG EXT REL TAB PO SCH (08:00)
[2021-07-08] MEDS: MAGNESIUM OXIDE 400 MG TAB PO SCH (08:00)
[2021-07-08] MEDS: PRAVASTATIN SOD 40 MG TAB PO SCH (08:00)
[2021-07-08] MEDS: POT PHOSPHATE MONOBASIC W/ SOD TAB PO SCH ×3 (08:00→21:55)
[2021-07-08] MEDS: AMIODARONE 200 MG TAB PO SCH (08:00)
[2021-07-08] MEDS: POTASSIUM CHLORIDE 10 MEQ TABCR PO SCH ×3 (08:00→21:58)
[2021-07-08] MEDS: PANTOprazole 40 MG TAB PO SCH (08:00)
[2021-07-08 08:13] LABS: Hematocrit (blood only) 20.3 % (37-47); Hemoglobin 6.5 g/dL (12.0-16.0); Mean Corpuscular Hemoglobin 31.3 pg (25-34); Mean Corpuscular Volume 97.6 fL (80-100); Mean Platelet Volume 9.3 fL (7.4-10.4); Nucleated RBC # (auto) 0.02 K/uL (0-0); Nucleated RBC % (auto) 0.4 %; Platelet Count 73 K/uL (130-400); RDW Coefficient of Variation 16.8 % (11.5-14.5); RDW Standard Deviation 59.8 fL (36.4-46.3); Red Blood Count 2.08 M/uL (4.2-5.4); White Blood Count 4.31 K/uL (4.8-10.8)
[2021-07-08 08:16] LABS: BUN Creatinine Ratio 15.5 (10-20); Calcium 7.1 mg/dl (8.5-10.1); Creatinine Clr Calc Pharmacy 47.1 ml/min; Est GFR (African American) 74.5 ml/min; Est GFR (Non-African American) 64.3 ml/min; Magnesium 2.3 mg/dl (1.7-2.4); Potassium 3.8 mmol/L (3.5-5.1)
[2021-07-08] MEDS ORDERED: SODIUM CHLORIDE 0.9% 250 ML IV PRN (08:25)
[2021-07-08] MEDS: OXYBUTYNIN CHLORIDE 5 MG TAB PO SCH (09:58)
--- NOTE | 2021-07-08 12:13 | Electrocardiogram Report ---
Test Reason : Blood Pressure : / mmHG Vent. Rate : 055 BPM Atrial Rate : 055 BPM P-R Int : 208 ms QRS Dur : 162 ms QT Int : 510 ms P-R-T Axes : 085 -38 004 degrees QTc Int : 487 ms Sinus bradycardia Left axis deviation Right bundle branch block Minimal voltage criteria for LVH, may be normal variant Abnormal ECG When compared with ECG of 16-JUL-2020 05:08, No significant change was found Confirmed by Jozef Shields ([id number]) on 07/08/2021 12:12:53 PM Referred By: REFERRED SELF Confirmed By:Jozef Shields
--- NOTE | 2021-07-08 12:53 | Orthopedic Progress Note ---
Date of Service July 08, 2021 Assessment & Plan (1) Hematoma: -No further intervention planned. -Dressing changes daily prn if saturated -WBAT to RLE. Continue PT/OT -SCD to LLE. -Agree w/ holding Eliquis indefinitely. -Low suspicion of ongoing active bleeding in the knee despite Hgb drop. Clinically continues to improve. Transfuse prn, defer to primary team. Disposition: Remain inpatient d/t medical issues. Will follow along. Discussed w/ Dr. Soto. Subjective Feeling better today. Less knee pain. Did have an episode of hypotension overnight, recent vital stable. Denies c/p, SOB, dizziness, lightheadedness, nausea . Review of Systems All systems reviewed & are unremarkable except as noted in HPI & below. Physical Exam General: Pleasant 85 y/o/f resting in no acute distress RLE: Dressing left in place for examination, C/D/I. Still w/ tenderness globally surrounding the knee, improved from yest. ROM 10-90 degrees with assistance. Distally N/V/I . . Results & Data Results & Data Laboratory Results Reviewed, Hgb down to 6.5 this AM . Diagnostic Findings Reviewed . PG Care Time/CCT Total # of Minutes Spent Total Time Spent with Patient: Total time spent is greater than 50% in coordination of care (as documented) at patient's floor/unit and/or counseling patient: Coding Level of Care Code 75190 Subseq Hosp Care Lvl 2 Diagnoses Hematoma T14.8XXA
--- NOTE | 2021-07-08 13:44 | Hospitalist Progress Note ---
Date of Service July 08, 2021 Assessment & Plan (1) Fall: Plan: Mechanical Fall -No fractures but patient with multiple bruises, most notably her right knee which is markedly swollen with large hematoma -PT/OT. Rehab is recommended -Remains stable without any acute distress and/or symptoms (2) Hematoma: Plan: Right knee hematoma -continue to hold Eliquis -Appreciate Ortho input regarding hematoma management -will give lasix 20mg IV once now to help with trace bilateral leg swelling -Denies any increasing swelling of the right knee joint -Denies any pain at rest -Awaiting rehab placement (3) Anemia: Plan: Acute blood loss anemia secondary to hematoma of the right knee following fall Complicated by being on Eliquis Hemoglobin dropped to 6.5 today Will give 2 units of PRBC Monitor CBC (4) Thrombocytopenia: (5) Paroxysmal atrial fibrillation: Plan: PAF on Eliquis -Eliquis on hold due to right knee hematoma -Toprol 25mg daily, amiodarone 200mg daiy -Patient reports last fall was in April. -Family requesting discussion with Cardiology whether she can come off her Eliquis permanently. -Appreciate cardiology input and recommendation -Further recommendation about Eliquis will be decided as an outpatient appointment with air sealing technician (6) Chronic diastolic CHF (congestive heart failure): Plan: Chronic diastolic CHF -at home takes lasix 20mg PO PRN. trace bilateral leg edema. Will give lasix 20mg IV once and reassess tomorrow Remains euvolemic and no symptoms of fluid overload Lasix will be given in between blood transfusion (7) DVT prophylaxis: Plan: DVT ppx -hold AC with current hematoma Awaiting placement Admission and Anticipated Discharge Date Admission Date: July 07, 2021 Subjective 07/08/2021 The patient was seen and examined in medical telemetry unit She denies any symptoms -denies any swelling or pain involving the right knee joint, no facial pain Denies any chest pain, shortness of breath and/or palpitation Review of Systems Review of Systems: All systems reviewed and are unremarkable except as noted below Physical Exam Physical Exam: Sitting on a chair without any acute distress Constitutional: average body habitus; not ill appearing Eyes: Has bruising secondary to fall on the right side ENMT: external ear and nose normal, oropharynx normal Neck: trachea midline, no thyromegaly Respiratory: no respiratory distress Auscultation: lungs clear to auscultation bilaterally Cardiovascular: Rate/Rhythm: regular rate and regular rhythm; not tachycardic Heart Sounds: normal S1, normal S2 and + murmur (2/6 ESM over precordium) Extremities: + edema (Trace edema on the left and about 1+ on the right) Gastrointestinal (Abdomen): Inspection/Auscultation: normal bowel sounds; abdomen not distended Percussion/Palpation: abdomen soft; abdomen nontender Musculoskeletal: Swelling of the right knee joint. Mild to moderate pain with movement of the right knee joint Neurologic: Alert, awake and oriented x3. No focal sensory and/or motor deficit appreciated Results & Data Results & Data ([facility]) Vital Signs (Past 12 Hours) Vital Signs Temp Pulse Pulse Resp BP BP Pulse Ox 07/08/21 13:12 36.9 C 56 L 18 96/58 L 95 07/08/21 12:12 36.7 C 56 L 18 112/56 L 97 07/08/21 11:42 36.6 C 56 L 18 120/69 96 07/08/21 11:27 36.9 C 53 L 18 106/51 L 97 07/08/21 11:12 36.9 C 53 L 18 111/46 L 97 07/08/21 07:56 66 07/08/21 07:32 36.7 C 60 18 114/64 94 07/08/21 02:55 36.7 C 58 L 18 101/47 L 97 Laboratory Results Short CBC 07/08/21 Range/Units 07:14 WBC 4.31 L (4.8-10.8) K/uL Hgb 6.5 L* (12.0-16.0) g/dL Hct 20.3 L* (37-47) % Plt Count 73 L (130-400) K/uL BMP 07/08/21 07:14 Sodium 137 Potassium 3.8 Chloride 108 H Carbon Dioxide 24 BUN 13 Creatinine 0.84 Glucose 80 Calcium 7.1 L Medications Administered Current Inpatient Medications Acetaminophen (Acetaminophen 325 Mg Tab) 650 mg PO Q8 STEPHANIE Stop: 08/05/21 22:10 Last Admin: 07/08/21 13:13 Dose: 650 mg Documented by: Amiodarone HCl (Amiodarone 200 Mg Tab) 200 mg PO QAM STEPHANIE Stop: 08/06/21 08:59 Last Admin: 07/08/21 08:00 Dose: 200 mg Documented by: Ferrous Sulfate (Ferrous Sulfate 325 Mg Tab) 325 mg PO Q2D@0900 STEPHANIE Stop: 08/06/21 08:59 Last Admin: 07/07/21 08:03 Dose: 325 mg Documented by: Fexofenadine HCl (Fexofenadine Hcl 180 Mg Tab) 180 mg PO HS STEPHANIE Stop: 08/05/21 22:10 Last Admin: 07/07/21 21:14 Dose: 180 mg Documented by: Sodium Chloride (Nss) 250 mls @ 15 mls/hr IV .[id number] PRN PRN Reason: For Transfusion Stop: 07/08/21 18:25 Magnesium Oxide (Magnesium Oxide 400 Mg Tab) 400 mg PO DAILY [facility] Stop: 08/06/21 08:59 Last Admin: 07/08/21 08:00 Dose: 400 mg Documented by: Metoprolol Succinate (Metoprolol Succ 25mg Ext Rel Tab) 25 mg PO DAILY [facility] Stop: 08/06/21 08:59 Last Admin: 07/08/21 08:00 Dose: 25 mg Documented by: Morphine Sulfate (Morphine Sulfate 2 Mg/Ml Carp) 2 mg IV Q3H PRN PRN Reason: Pain Stop: 07/21/21 00:22 Last Admin: 07/07/21 00:52 Dose: 2 mg Documented by: Oxybutynin Chloride (Oxybutynin Chloride 5 Mg Tab) 5 mg PO QAM [facility] Stop: 08/07/21 08:59 Last Admin: 07/08/21 09:58 Dose: 5 mg Documented by: Pantoprazole Sodium (Pantoprazole 40 Mg Tab) 40 mg PO DAILY [facility] Stop: 08/06/21 08:59 Last Admin: 07/08/21 08:00 Dose: 40 mg Documented by: Potassium Chloride (Potassium Chloride 10 Meq Tabcr) 10 meq PO TID STEPHANIE Stop: 08/05/21 22:10 Last Admin: 07/08/21 13:14 Dose: 10 meq Documented by: Potassium Phosphate (Pot Phosphate Monobasic W/ Sod Tab) 2 tab PO TID [facility] Stop: 08/05/21 22:10 Last Admin: 07/08/21 13:14 Dose: 2 tab Documented by: Pravastatin Sodium (Pravastatin Sod 40 Mg Tab) 80 mg PO DAILY [facility] Stop: 08/06/21 08:59 Last Admin: 07/08/21 08:00 Dose: 80 mg Documented by: Prednisolone Acetate (Prednisolone Acetate 1% Op Susp 5 Ml Btl) 1 drops OP HS STEPHANIE Stop: 08/05/21 22:10 Last Admin: 07/07/21 21:12 Dose: 1 drops Documented by: Tramadol HCl (Tramadol Hcl 50 Mg Tablet) 25 - 50 mg PO Q4H PRN PRN Reason: Pain Stop: 08/06/21 00:22 (1) Fall Encounter type: initial encounter Qualified Code(s): W19.XXXA - Unspecified fall, initial encounter
[2021-07-08] MEDS: FEXOFENADINE HCL 180 MG TAB PO SCH (21:54)
[2021-07-08] MEDS: prednisoLONE acetate 1% OP SUSP 5 ML BTL OP SCH (21:56)
[2021-07-09] MEDS: ACETAMINOPHEN 325 MG TAB PO SCH ×3 (05:35→22:01)
[2021-07-09 08:02] LABS: Hematocrit (blood only) 25.1 % (37-47); Hemoglobin 8.2 g/dL (12.0-16.0); Mean Corpuscular Hemoglobin 30.3 pg (25-34); Mean Corpuscular Hgb Conc 32.7 g/dL (32-36); Mean Corpuscular Volume 92.6 fL (80-100); Mean Platelet Volume 9.5 fL (7.4-10.4); Platelet Count 78 K/uL (130-400); RDW Coefficient of Variation 20.7 % (11.5-14.5); RDW Standard Deviation 68.5 fL (36.4-46.3); Red Blood Count 2.71 M/uL (4.2-5.4); White Blood Count 4.34 K/uL (4.8-10.8)
[2021-07-09] MEDS: METOPROLOL SUCC 25MG EXT REL TAB PO SCH (08:16)
[2021-07-09] MEDS: PANTOprazole 40 MG TAB PO SCH (08:17)
[2021-07-09] MEDS: POT PHOSPHATE MONOBASIC W/ SOD TAB PO SCH ×3 (08:18→20:18)
[2021-07-09] MEDS: OXYBUTYNIN CHLORIDE 5 MG TAB PO SCH (08:18)
[2021-07-09] MEDS: PRAVASTATIN SOD 40 MG TAB PO SCH (08:18)
[2021-07-09] MEDS: MAGNESIUM OXIDE 400 MG TAB PO SCH (08:18)
[2021-07-09] MEDS: AMIODARONE 200 MG TAB PO SCH (08:18)
[2021-07-09] MEDS: FERROUS SULFATE 325 MG TAB PO SCH (08:18)
[2021-07-09 08:20] LABS: BUN Creatinine Ratio 18.6 (10-20); Calcium 7.2 mg/dl (8.5-10.1); Creatinine Clr Calc Pharmacy 40.5 ml/min; Est GFR (African American) 62.6 ml/min; Potassium 4.1 mmol/L (3.5-5.1)
[2021-07-09 08:53] LABS: Anisocytosis Present; Basophils # (auto) 0.02 K/uL (0-0.2); Basophils % (auto) 0.5 %; Eosinophils # (auto) 0.13 K/uL (0-0.5); Immature Granulocytes # (auto) 0.01 K/uL (0.00-0.02); Immature Granulocytes % (auto) 0.2 %; Lymphocytes # (auto) 1.18 K/uL (1.2-3.4); Lymphocytes % (auto) 27.2 %; Monocytes # (auto) 0.69 K/uL (0.11-0.59); Monocytes % (auto) 15.9 %; Neutrophils # (auto) 2.31 K/uL (1.4-6.5); Neutrophils % (auto) 53.2 %; Polychromasia 1+
--- NOTE | 2021-07-09 10:09 | Orthopedic Progress Note ---
Date of Service July 09, 2021 Assessment & Plan (1) Hematoma: -No further intervention planned. Only would intervene further if hematoma develops evidence concerning for infection -OK to leave open to air. -WBAT to RLE. Continue PT/OT -gait training and ADLs. Use the knee immobilizer until pain resolves. Minimize repetitive knee flexion extension outside of ADLs until hematoma shows further resolution. -SCD to LLE. -Agree w/ holding Eliquis indefinitely. Disposition: Per medicine. Needs PT/OT evaluation for discharge planning. Discussed follow-up with the patient and her daughter today. They are patients of Dr. Virk's and can contact our clinic after discharge with any concerns. Signing off but available for any questions. Discussed w/ Dr. Soto. Subjective Doing well today. Up in a chair on evaluation. Knee pain continues to improve. S/p 2 u PRBC yesterday . Review of Systems All systems reviewed & are unremarkable except as noted in HPI & below. Physical Exam General: Pleasant 85 y/o/f resting in no acute distress RLE: Dressing taken down. No further skin breakdown, wounds dry with no drainage. Tenderness improving. ROM 10-90 degrees with assistance. Distally N/V/I. Results & Data Results & Data Laboratory Results Reviewed, Hgb stable after blood transfusion. Diagnostic Findings N/A . PG Care Time/CCT Total # of Minutes Spent Total Time Spent with Patient: Total time spent is greater than 50% in coordination of care (as documented) at patient's floor/unit and/or counseling patient: Supervising Physician Co-Signing Physician Notes Agree with above note. Patient was evaluated today with the PA. Please contact us by [place] text for any further needs. Coding Level of Care Code 66111 Subseq Hosp Care Lvl 2 Diagnoses Hematoma T14.8XXA
[2021-07-09] MEDS: POTASSIUM CHLORIDE 10 MEQ TABCR PO SCH ×3 (10:32→20:18)
--- NOTE | 2021-07-09 15:57 | Hospitalist Progress Note ---
Date of Service July 09, 2021 Assessment & Plan (1) Fall: Plan: Mechanical Fall -No fractures but patient with multiple bruises, most notably her right knee which is markedly swollen with large hematoma -PT/OT. Rehab is recommended -Remains stable without any acute distress and/or symptoms -Has been getting PT and OT and is expected to encompass -Likely discharge tomorrow (2) Hematoma: Plan: Right knee hematoma -continue to hold Eliquis -Appreciate Ortho input regarding hematoma management -will give lasix 20mg IV once now to help with trace bilateral leg swelling -Denies any increasing swelling of the right knee joint -Denies any pain at rest -Awaiting rehab placement -Hematoma of the right prepatellar area remains stable (3) Anemia: Plan: Acute blood loss anemia secondary to hematoma of the right knee following fall Complicated by being on Eliquis Hemoglobin dropped to 6.5 today Will give 2 units of PRBC Monitor CBC-8.2 as of today (4) Thrombocytopenia: (5) Paroxysmal atrial fibrillation: Plan: PAF on Eliquis -Eliquis on hold due to right knee hematoma -Toprol 25mg daily, amiodarone 200mg daiy -Patient reports last fall was in April. -Family requesting discussion with Cardiology whether she can come off her Eliquis permanently. -Appreciate cardiology input and recommendation -Further recommendation about Eliquis will be decided as an outpatient appointment with auto fleet manager (6) Chronic diastolic CHF (congestive heart failure): Plan: Chronic diastolic CHF -at home takes lasix 20mg PO PRN. trace bilateral leg edema. Will give lasix 20mg IV once and reassess tomorrow Remains euvolemic and no symptoms of fluid overload Lasix will be given in between blood transfusion (7) DVT prophylaxis: Plan: DVT ppx -hold AC with current hematoma Awaiting placement Admission and Anticipated Discharge Date Admission Date: July 07, 2021 Subjective 07/08/2021 The patient was seen and examined in medical telemetry unit She denies any symptoms -denies any swelling or pain involving the right knee joint, no facial pain Denies any chest pain, shortness of breath and/or palpitation 07/09/2021 The patient was seen and examined in medical telemetry unit She has some pain in the right knee with movement Denies any other symptoms Review of Systems Review of Systems: All systems reviewed and are unremarkable except as noted below Physical Exam Physical Exam: Sitting on a chair without any acute distress Constitutional: average body habitus; not ill appearing ENMT: external ear and nose normal, oropharynx normal Neck: trachea midline, no thyromegaly Respiratory: no respiratory distress Auscultation: lungs clear to auscultation bilaterally Cardiovascular: Rate/Rhythm: regular rate and regular rhythm; not tachycardic Heart Sounds: normal S1, normal S2 and + murmur (2/6 ESM over precordium) Extremities: + edema (Trace edema on the left and about 1+ on the right) Gastrointestinal (Abdomen): Inspection/Auscultation: normal bowel sounds; abdomen not distended Percussion/Palpation: abdomen soft; abdomen nontender Musculoskeletal: Minimal knee pain with movement of the right lower extremity Neurologic: Alert, awake and oriented x3. No focal sensory and motor deficit appreciated Results & Data Results & Data ([facility]) Vital Signs (Past 12 Hours) Vital Signs Temp Pulse Pulse Resp BP BP Pulse Ox 07/09/21 15:32 53 L 07/09/21 15:30 37.0 C 50 L 18 112/62 94 07/09/21 14:53 96 07/09/21 11:26 36.5 C 57 L 18 95/52 L 97 07/09/21 07:57 36.5 C 60 18 117/53 L 93 07/09/21 07:34 53 L 07/09/21 04:00 36.6 C 53 L 18 127/56 L 92 Laboratory Results Short CBC 07/09/21 Range/Units 07:28 WBC 4.34 L (4.8-10.8) K/uL Hgb 8.2 L (12.0-16.0) g/dL Hct 25.1 L (37-47) % Plt Count 78 L (130-400) K/uL BMP 07/09/21 07:28 Sodium 136 Potassium 4.1 Chloride 107 Carbon Dioxide 25 BUN 18 Creatinine 0.97 Glucose 80 Calcium 7.2 L Medications Administered Current Inpatient Medications Acetaminophen (Acetaminophen 325 Mg Tab) 650 mg PO Q8 STEPHANIE Stop: 08/05/21 22:10 Last Admin: 07/09/21 13:11 Dose: 650 mg Documented by: Amiodarone HCl (Amiodarone 200 Mg Tab) 200 mg PO QAM STEPHANIE Stop: 08/06/21 08:59 Last Admin: 07/09/21 08:18 Dose: 200 mg Documented by: Ferrous Sulfate (Ferrous Sulfate 325 Mg Tab) 325 mg PO Q2D@0900 STEPHANIE Stop: 08/06/21 08:59 Last Admin: 07/09/21 08:18 Dose: 325 mg Documented by: Fexofenadine HCl (Fexofenadine Hcl 180 Mg Tab) 180 mg PO HS STEPHANIE Stop: 08/05/21 22:10 Last Admin: 07/08/21 21:54 Dose: 180 mg Documented by: Magnesium Oxide (Magnesium Oxide 400 Mg Tab) 400 mg PO DAILY STEPHANIE Stop: 08/06/21 08:59 Last Admin: 07/09/21 08:18 Dose: 400 mg Documented by: Metoprolol Succinate (Metoprolol Succ 25mg Ext Rel Tab) 12.5 mg PO DAILY STEPHANIE Stop: 08/09/21 08:59 Morphine Sulfate (Morphine Sulfate 2 Mg/Ml Carp) 2 mg IV Q3H PRN PRN Reason: Pain Stop: 07/21/21 00:22 Last Admin: 07/07/21 00:52 Dose: 2 mg Documented by: Oxybutynin Chloride (Oxybutynin Chloride 5 Mg Tab) 5 mg PO QAM STEPHANIE Stop: 08/07/21 08:59 Last Admin: 07/09/21 08:18 Dose: 5 mg Documented by: Pantoprazole Sodium (Pantoprazole 40 Mg Tab) 40 mg PO DAILY STEPHANIE Stop: 08/06/21 08:59 Last Admin: 07/09/21 08:17 Dose: 40 mg Documented by: Potassium Chloride (Potassium Chloride 10 Meq Tabcr) 10 meq PO TID STEPHANIE Stop: 08/05/21 22:10 Last Admin: 07/09/21 13:11 Dose: 10 meq Documented by: Potassium Phosphate (Pot Phosphate Monobasic W/ Sod Tab) 2 tab PO TID STEPHANIE Stop: 08/05/21 22:10 Last Admin: 07/09/21 13:11 Dose: 2 tab Documented by: Pravastatin Sodium (Pravastatin Sod 40 Mg Tab) 80 mg PO DAILY STEPHANIE Stop: 08/06/21 08:59 Last Admin: 07/09/21 08:18 Dose: 80 mg Documented by: Prednisolone Acetate (Prednisolone Acetate 1% Op Susp 5 Ml Btl) 1 drops OP HS STEPHANIE Stop: 08/05/21 22:10 Last Admin: 07/08/21 21:56 Dose: 1 drops Documented by: Tramadol HCl (Tramadol Hcl 50 Mg Tablet) 25 - 50 mg PO Q4H PRN PRN Reason: Pain Stop: 08/06/21 00:22 (1) Fall Encounter type: initial encounter Qualified Code(s): W19.XXXA - Unspecified fall, initial encounter
[2021-07-09] MEDS: FEXOFENADINE HCL 180 MG TAB PO SCH (20:17)
[2021-07-09] MEDS: prednisoLONE acetate 1% OP SUSP 5 ML BTL OP SCH (20:19)
[2021-07-10] MEDS: ACETAMINOPHEN 325 MG TAB PO SCH ×3 (06:41→22:30)
[2021-07-10] MEDS: AMIODARONE 200 MG TAB PO SCH (07:41)
[2021-07-10] MEDS: PRAVASTATIN SOD 40 MG TAB PO SCH (07:42)
[2021-07-10] MEDS: MAGNESIUM OXIDE 400 MG TAB PO SCH (07:42)
[2021-07-10] MEDS: PANTOprazole 40 MG TAB PO SCH (07:42)
[2021-07-10] MEDS: OXYBUTYNIN CHLORIDE 5 MG TAB PO SCH (07:42)
[2021-07-10] MEDS: POT PHOSPHATE MONOBASIC W/ SOD TAB PO SCH ×3 (07:43→20:29)
[2021-07-10] MEDS: METOPROLOL SUCC 25MG EXT REL TAB PO SCH (07:43)
[2021-07-10] MEDS: POTASSIUM CHLORIDE 10 MEQ TABCR PO SCH ×3 (07:47→20:28)
[2021-07-10 08:10] LABS: Hematocrit (blood only) 27.1 % (37-47); Hemoglobin 8.7 g/dL (12.0-16.0); Mean Corpuscular Hemoglobin 30.5 pg (25-34); Mean Corpuscular Hgb Conc 32.1 g/dL (32-36); Mean Corpuscular Volume 95.1 fL (80-100); RDW Coefficient of Variation 20.5 % (11.5-14.5); Red Blood Count 2.85 M/uL (4.2-5.4); White Blood Count 4.84 K/uL (4.8-10.8)
[2021-07-10 08:30] LABS: Mean Platelet Volume 10.1 fL (7.4-10.4); Platelet Count 93 K/uL (130-400)
[2021-07-10 08:31] LABS: Anisocytosis Present; Basophils # (auto) 0.02 K/uL (0-0.2); Basophils % (auto) 0.4 %; Eosinophils # (auto) 0.14 K/uL (0-0.5); Eosinophils % (auto) 2.9 %; Immature Granulocytes # (auto) 0.01 K/uL (0.00-0.02); Immature Granulocytes % (auto) 0.2 %; Lymphocytes # (auto) 1.07 K/uL (1.2-3.4); Lymphocytes % (auto) 22.1 %; Monocytes # (auto) 0.73 K/uL (0.11-0.59); Monocytes % (auto) 15.1 %; Neutrophils # (auto) 2.87 K/uL (1.4-6.5); Neutrophils % (auto) 59.3 %
[2021-07-10 08:47] LABS: BUN Creatinine Ratio 18.3 (10-20); Calcium 7.2 mg/dl (8.5-10.1); Creatinine Clr Calc Pharmacy 48.4 ml/min; Est GFR (African American) 76.7 ml/min; Est GFR (Non-African American) 66.2 ml/min; Potassium 4.1 mmol/L (3.5-5.1)
--- NOTE | 2021-07-10 11:07 | Hospitalist Progress Note ---
Date of Service July 10, 2021 Assessment & Plan (1) Fall: Plan: Mechanical Fall -No fractures but patient with multiple bruises, most notably her right knee which is markedly swollen with large hematoma -PT/OT. Rehab is recommended -Remains stable without any acute distress and/or symptoms -Has been getting PT and OT and is expected to encompass -Remains medically stable with stable hemoglobin -[facility] Right lower lip stitches can be removed within next 2 to 3 days. (2) Hematoma: Plan: Right knee hematoma -continue to hold Eliquis -Appreciate Ortho input regarding hematoma management -will give lasix 20mg IV once now to help with trace bilateral leg swelling -Denies any increasing swelling of the right knee joint -Denies any pain at rest -Awaiting rehab placement -Hematoma of the right prepatellar area remains stable -Minimal pain with movement, [facility] to continue physical therapy (3) Anemia: Plan: Acute blood loss anemia secondary to hematoma of the right knee following fall Complicated by being on Eliquis Hemoglobin dropped to 6.5 today Will give 2 units of PRBC Monitor CBC-8.7 as of today (4) Thrombocytopenia: (5) Paroxysmal atrial fibrillation: Plan: PAF on Eliquis -Eliquis on hold due to right knee hematoma -Toprol 25mg daily, amiodarone 200mg daijojo -Patient reports last fall was in April. -Family requesting discussion with Cardiology whether she can come off her Eliquis permanently. -Appreciate cardiology input and recommendation -Discussed with the ct technician and Eliquis has been stopped (6) Chronic diastolic CHF (congestive heart failure): Plan: Chronic diastolic CHF -at home takes lasix 20mg PO PRN. trace bilateral leg edema. Will give lasix 20mg IV once and reassess tomorrow Remains euvolemic and no symptoms of fluid overload Lasix will be given in between blood transfusion No signs and or symptoms of fluid overload (7) DVT prophylaxis: Plan: DVT ppx -hold AC with current hematoma [facility] and will be discharged this afternoon Admission and Anticipated Discharge Date Admission Date: July 07, 2021 Subjective 07/08/2021 The patient was seen and examined in medical telemetry unit She denies any symptoms -denies any swelling or pain involving the right knee joint, no facial pain Denies any chest pain, shortness of breath and/or palpitation 07/09/2021 The patient was seen and examined in medical telemetry unit She has some pain in the right knee with movement Denies any other symptoms 07/10/2021 The patient was seen and examined in medical telemetry unit in presence of the daughter She has been stable and denies any significant symptoms Minimal pain in the knee joint with activities Review of Systems Review of Systems: All systems reviewed and are unremarkable except as noted below Physical Exam Physical Exam: Sitting on a chair without any acute distress Constitutional: average body habitus; not ill appearing ENMT: external ear and nose normal, oropharynx normal Neck: trachea midline, no thyromegaly Respiratory: no respiratory distress Auscultation: lungs clear to auscultation bilaterally Cardiovascular: Rate/Rhythm: regular rate and regular rhythm; not tachycardic Heart Sounds: normal S1, normal S2 and + murmur (2/6 ESM over precordium) Extremities: + edema (Trace edema on the left and about 1+ on the right) Gastrointestinal (Abdomen): Inspection/Auscultation: normal bowel sounds; abdomen not distended Percussion/Palpation: abdomen soft; abdomen nontender Musculoskeletal: Right knee is swollen, extensively bruised with superficial skin bulla, a few of them have ruptured. Results & Data Results & Data ([facility]) Vital Signs (Past 12 Hours) Vital Signs Temp Pulse Pulse Resp BP BP Pulse Ox 07/10/21 07:37 36.7 C 59 L 18 132/72 92 07/10/21 07:21 56 L 07/10/21 03:20 36.5 C 57 L 20 110/63 94 Laboratory Results Short CBC 07/10/21 Range/Units 07:27 WBC 4.84 (4.8-10.8) K/uL Hgb 8.7 L (12.0-16.0) g/dL Hct 27.1 L (37-47) % Plt Count 93 L (130-400) K/uL BMP 07/10/21 07:27 Sodium 137 Potassium 4.1 Chloride 107 Carbon Dioxide 25 BUN 15 Creatinine 0.82 Glucose 79 Calcium 7.2 L Medications Administered Current Inpatient Medications Acetaminophen (Acetaminophen 325 Mg Tab) 650 mg PO Q8 STEPHANIE Stop: 08/05/21 22:10 Last Admin: 07/10/21 06:41 Dose: Not Given Documented by: Amiodarone HCl (Amiodarone 200 Mg Tab) 200 mg PO QAM [facility] Stop: 08/06/21 08:59 Last Admin: 07/10/21 07:41 Dose: 200 mg Documented by: Ferrous Sulfate (Ferrous Sulfate 325 Mg Tab) 325 mg PO Q2D@0900 STEPHANIE Stop: 08/06/21 08:59 Last Admin: 07/09/21 08:18 Dose: 325 mg Documented by: Fexofenadine HCl (Fexofenadine Hcl 180 Mg Tab) 180 mg PO HS STEPHANIE Stop: 08/05/21 22:10 Last Admin: 07/09/21 20:17 Dose: 180 mg Documented by: Magnesium Oxide (Magnesium Oxide 400 Mg Tab) 400 mg PO DAILY [facility] Stop: 08/06/21 08:59 Last Admin: 07/10/21 07:42 Dose: 400 mg Documented by: Metoprolol Succinate (Metoprolol Succ 25mg Ext Rel Tab) 12.5 mg PO DAILY [facility] Stop: 08/09/21 08:59 Last Admin: 07/10/21 07:43 Dose: Not Given Documented by: Morphine Sulfate (Morphine Sulfate 2 Mg/Ml Carp) 2 mg IV Q3H PRN PRN Reason: Pain Stop: 07/21/21 00:22 Last Admin: 07/07/21 00:52 Dose: 2 mg Documented by: Oxybutynin Chloride (Oxybutynin Chloride 5 Mg Tab) 5 mg PO QAM [facility] Stop: 08/07/21 08:59 Last Admin: 07/10/21 07:42 Dose: 5 mg Documented by: Pantoprazole Sodium (Pantoprazole 40 Mg Tab) 40 mg PO DAILY [facility] Stop: 08/06/21 08:59 Last Admin: 07/10/21 07:42 Dose: 40 mg Documented by: Potassium Chloride (Potassium Chloride 10 Meq Tabcr) 10 meq PO TID [facility] Stop: 08/05/21 22:10 Last Admin: 07/10/21 07:47 Dose: 10 meq Documented by: Potassium Phosphate (Pot Phosphate Monobasic W/ Sod Tab) 2 tab PO TID [facility] Stop: 08/05/21 22:10 Last Admin: 07/10/21 07:43 Dose: 2 tab Documented by: Pravastatin Sodium (Pravastatin Sod 40 Mg Tab) 80 mg PO DAILY [facility] Stop: 08/06/21 08:59 Last Admin: 07/10/21 07:42 Dose: 80 mg Documented by: Prednisolone Acetate (Prednisolone Acetate 1% Op Susp 5 Ml Btl) 1 drops OP HS STEPHANIE Stop: 08/05/21 22:10 Last Admin: 07/09/21 20:19 Dose: 1 drops Documented by: Tramadol HCl (Tramadol Hcl 50 Mg Tablet) 25 - 50 mg PO Q4H PRN PRN Reason: Pain Stop: 08/06/21 00:22 (1) Fall Encounter type: initial encounter Qualified Code(s): W19.XXXA - Unspecified fall, initial encounter
[2021-07-10] MEDS: FEXOFENADINE HCL 180 MG TAB PO SCH (20:29)
[2021-07-10] MEDS: prednisoLONE acetate 1% OP SUSP 5 ML BTL OP SCH (20:30)
[2021-07-11] MEDS: ACETAMINOPHEN 325 MG TAB PO SCH ×2 (04:50→11:08)
[2021-07-11] MEDS: MAGNESIUM OXIDE 400 MG TAB PO SCH (07:28)
[2021-07-11] MEDS: METOPROLOL SUCC 25MG EXT REL TAB PO SCH (07:28)
[2021-07-11] MEDS: PRAVASTATIN SOD 40 MG TAB PO SCH (07:28)
[2021-07-11] MEDS: OXYBUTYNIN CHLORIDE 5 MG TAB PO SCH (07:28)
[2021-07-11] MEDS: PANTOprazole 40 MG TAB PO SCH (07:29)
[2021-07-11] MEDS: AMIODARONE 200 MG TAB PO SCH (07:29)
[2021-07-11] MEDS: FERROUS SULFATE 325 MG TAB PO SCH (07:29)
[2021-07-11] MEDS: POT PHOSPHATE MONOBASIC W/ SOD TAB PO SCH ×2 (08:11→11:08)
[2021-07-11] MEDS: POTASSIUM CHLORIDE 10 MEQ TABCR PO SCH ×2 (08:11→11:08)
--- NOTE | 2021-07-11 12:55 | Hospitalist Progress Note ---
Date of Service July 11, 2021 Assessment & Plan (1) Fall: Plan: Mechanical Fall -No fractures but patient with multiple bruises, most notably her right knee which is markedly swollen with large hematoma -PT/OT. Rehab is recommended -Remains stable without any acute distress and/or symptoms -Has been getting PT and OT and is expected to encompass -Remains medically stable with stable hemoglobin -Denies any new symptoms and remains medically stable -Has a bed in [facility] and will be discharged this afternoon Right lower lip stitches can be removed within next 2 to 3 days. (2) Hematoma: Plan: Right knee hematoma -continue to hold Eliquis -Appreciate Ortho input regarding hematoma management -will give lasix 20mg IV once now to help with trace bilateral leg swelling -Denies any increasing swelling of the right knee joint -Denies any pain at rest -Awaiting rehab placement -Hematoma of the right prepatellar area remains stable -Minimal pain with movement, will be discharged to [facility] this afternoon to continue physical therapy -No increase in pain and tolerating physical therapy (3) Anemia: Plan: Acute blood loss anemia secondary to hematoma of the right knee following fall Complicated by being on Eliquis Hemoglobin dropped to 6.5 today Will give 2 units of PRBC Monitor CBC-8.7 as of today Hemoglobin remains stable and no more evidence of any ongoing bleeding (4) Thrombocytopenia: Plan: Platelets remain stable at 93 (5) Paroxysmal atrial fibrillation: Plan: PAF on Eliquis -Eliquis on hold due to right knee hematoma -Toprol 25mg daily, amiodarone 200mg daijojo -Patient reports last fall was in April. -Family requesting discussion with Cardiology whether she can come off her Eliquis permanently. -Appreciate cardiology input and recommendation -Discussed with the machine operator slitter technician and Eliquis has been stopped (6) Chronic diastolic CHF (congestive heart failure): Plan: Chronic diastolic CHF -at home takes lasix 20mg PO PRN. trace bilateral leg edema. Will give lasix 20mg IV once and reassess tomorrow Remains euvolemic and no symptoms of fluid overload Lasix will be given in between blood transfusion No signs and or symptoms of fluid overload (7) DVT prophylaxis: Plan: DVT ppx -hold AC with current hematoma Accepted to [facility] and will be discharged this afternoon Admission and Anticipated Discharge Date Admission Date: July 07, 2021 Subjective 07/08/2021 The patient was seen and examined in medical telemetry unit She denies any symptoms -denies any swelling or pain involving the right knee joint, no facial pain Denies any chest pain, shortness of breath and/or palpitation 07/09/2021 The patient was seen and examined in medical telemetry unit She has some pain in the right knee with movement Denies any other symptoms 07/10/2021 The patient was seen and examined in medical telemetry unit in presence of the daughter She has been stable and denies any significant symptoms Minimal pain in the knee joint with activities 07/11/2021 The patient was seen and examined in medical telemetry unit in presence of the daughter She has been feeling much better Denies any significant pain in the right knee No evidence of any more bleeding in the hematoma Review of Systems Review of Systems: All systems reviewed and are unremarkable except as noted below Physical Exam Physical Exam: Sitting on a chair without any acute distress Constitutional: average body habitus; not ill appearing ENMT: external ear and nose normal, oropharynx normal Neck: trachea midline, no thyromegaly Respiratory: no respiratory distress Auscultation: lungs clear to auscultation bilaterally Cardiovascular: Rate/Rhythm: regular rate and regular rhythm; not tachycardic Heart Sounds: normal S1, normal S2 and + murmur (2/6 ESM over precordium) Extremities: + edema (Trace edema on the left and about 1+ on the right) Gastrointestinal (Abdomen): Inspection/Auscultation: normal bowel sounds; abdomen not distended Percussion/Palpation: abdomen soft; abdomen nontender Musculoskeletal: Right knee swollen and extensively bruised above and below with a few blisters Neurologic: Alert, awake and oriented x3. Generally weak but no focal neuro deficit Psychiatric: A+Ox3, euthymic affect Lymphatic: no cervical or axillary lymphadenopathy Results & Data Results & Data ([facility]) Vital Signs (Past 12 Hours) Vital Signs Temp Pulse Pulse Resp BP Pulse Ox 07/11/21 11:11 36.8 C 54 L 18 135/67 98 07/11/21 07:48 36.8 C 72 18 171/72 H 91 07/11/21 07:11 65 07/11/21 03:49 36.8 C 64 18 124/76 95 (1) Fall Encounter type: initial encounter Qualified Code(s): W19.XXXA - Unspecified fall, initial encounter
--- NOTE | 2021-07-12 08:00 | Discharge Summary ---
Date of Service July 12, 2021 Admission HPI Per Admitting Provider 85-year-old female PMH paroxysmal atrial fibrillation anticoagulated on Eliquis, chronic diastolic CHF, MGUS, history of paraesophageal hernia repair, and other problem listed below who presents to the ED for evaluation after a fall. Patient reports that she tripped over a suitcase. She fell to the ground hitting her right knee and right side of her lip causing a laceration. Patient denies any preceding chest pain or shortness of breath. No associated lightheadedness or dizziness. Patient denies loss of consciousness. Reports she otherwise has been feeling well recently. No other recent illnesses, fevers, chills. Denies abdominal pain, nausea, vomiting, diarrhea. No urinary symptoms. In the ED, patient required sutures for her lip laceration. Imaging studies show that patient has a large hematoma over her right knee. Labs show Hgb 9.7, platelet count 88K. Patient is hemodynamically stable. Admission Exam Per Admitting Provider Constitutional: WD/WN, vitals as above Eyes: PERRL, conjunctivae normal, anicteric sclerae ENMT: external ear and nose normal, oropharynx normal Mouth: + lip abnormality (Right lower lip laceration s/p sutures) Mild bruising noted over right cheek Respiratory:L normal respiratory effort, lungs clear to auscultation Cardiovascular: Rate/Rhythm: regular rate and regular rhythm Vessels: normal peripheral pulses Extremities: no pedal edema Gastrointestinal (Abdomen): normal bowel sounds, soft, nontender, no hepatosplenomegaly Musculoskeletal: Significant edema and ecchymosis noted over right knee Skin: no rashes, warm and dry Neurologic: PERRL, EOMI, accommodation nl, no face palsy, no dysarthria Psychiatric: A+Ox3, euthymic affect Principal Diagnosis Fall, ambulatory dysfunction, right knee hematoma, paroxysmal atrial fibrillation, chronic diastolic CHF Discharge Exam Sitting on a chair without any acute distress Constitutional average body habitus; not ill appearing ENMT external ear and nose normal, oropharynx normal Neck trachea midline, no thyromegaly Respiratory no respiratory distress Auscultation: lungs clear to auscultation bilaterally Cardiovascular Rate/Rhythm: regular rate and regular rhythm; not tachycardic Heart Sounds: normal S1, normal S2 and + murmur (2/6 ESM over precordium) Extremities: + edema (Trace edema on the left and about 1+ on the right) Gastrointestinal (Abdomen) Inspection/Auscultation: normal bowel sounds; abdomen not distended Percussion/Palpation: abdomen soft; abdomen nontender Psychiatric A+Ox3, euthymic affect Lymphatic no cervical or axillary lymphadenopathy Discharge Data Allergies Allergy/AdvReac Type Severity Reaction Status Date / Time simvastatin Allergy Unknown ELEVATED Verified 07/06/21 17:48 LIVER ENZYMES oxaprozin AdvReac Intermediate MAKES FEEL Verified 07/06/21 17:48 DEPRESSED Consultations 07/06/21 17:58 ED Decision to Admit Stat 07/06/21 18:35 Consult Orthopedic Surgery Routine 07/07/21 11:49 Consult Cardiology Routine Ordered Studies 07/06/21 14:48 CT cervical spine wo con Stat CT facial bones wo con Stat CT head/brain wo con Stat 07/06/21 16:05 CT knee RT wo con Stat Hospital Course (1) Fall: Mechanical Fall -No fractures but patient with multiple bruises, most notably her right knee which is markedly swollen with large hematoma -PT/OT. Rehab is recommended -Remains stable without any acute distress and/or symptoms -Has been getting PT and OT and is expected to [facility] -Remains medically stable with stable hemoglobin -Denies any new symptoms and remains medically stable -Has a bed in [facility] and will be discharged this afternoon Right lower lip stitches can be removed within next 2 to 3 days. (2) Hematoma: Right knee hematoma -continue to hold Eliquis -Appreciate Ortho input regarding hematoma management -will give lasix 20mg IV once now to help with trace bilateral leg swelling -Denies any increasing swelling of the right knee joint -Denies any pain at rest -Awaiting rehab placement -Hematoma of the right prepatellar area remains stable -Minimal pain with movement, will be discharged to [facility] this afternoon to continue physical therapy -No increase in pain and tolerating physical therapy (3) Anemia: Acute blood loss anemia secondary to hematoma of the right knee following fall Complicated by being on Eliquis Hemoglobin dropped to 6.5 today Will give 2 units of PRBC Monitor CBC-8.7 as of today Hemoglobin remains stable and no more evidence of any ongoing bleeding (4) Thrombocytopenia: Platelets remain stable at 93 (5) Paroxysmal atrial fibrillation: PAF on Eliquis -Eliquis on hold due to right knee hematoma -Toprol 25mg daily, amiodarone 200mg daiy -Patient reports last fall was in April. -Family requesting discussion with Cardiology whether she can come off her Eliquis permanently. -Appreciate cardiology input and recommendation -Discussed with the dressing room porter and Eliquis has been stopped (6) Chronic diastolic CHF (congestive heart failure): Chronic diastolic CHF -at home takes lasix 20mg PO PRN. trace bilateral leg edema. Will give lasix 20mg IV once and reassess tomorrow Remains euvolemic and no symptoms of fluid overload Lasix will be given in between blood transfusion No signs and or symptoms of fluid overload (7) DVT prophylaxis: DVT ppx -hold AC with current hematoma Accepted to [facility] and will be discharged this afternoon Total Time Total Time Spent Total Time Spent (In Minutes): 40 minutes Discharge Plan Discharge Items Patient Disposition: Transfer Inpatient Rehab Fac Reason For Visit: FALL, AMBULATORY DYSFUNCTION Discharge Diagnosis: Fall, ambulatory dysfunction, right knee hematoma, paroxysmal atrial fibrillation, chronic diastolic CHF Condition on Discharge: Fair Activity: As commented below Activity Comment: Weightbearing as tolerated to right lower extremity, continue PT and OT, Non-emergency contact: Primary Care Provider Call non-emergency contact if: you have any medication questions and your symptoms worsen Follow-up/Referrals: Eliazar Reis MD [Primary Care Provider] - (Please make an appointment with your primary care provider within 7 days following discharge from the facility) Diet: Heart Healthy Addtl Attending Provider Instructions: Please take precautions to avoid falls Weightbearing as tolerated to right lower extremity, continue PT and OT, use knee immobilizer until pain resolves Minimize the PTT knee flexion extension outside of ADL S until hematoma shows further resolution Can contact Dr. Virk's office for any further recommendation Your Eliquis has been stopped Pending Studies at Discharge: No Stand-Alone Forms: My [facility] Skilled Items Patient informed of condition?: Yes DNR: No Discharge Level of Care: Skilled Communicable Disease: No Discharge Prognosis: Stable Lines: None Urinary Catheter: Yes Medications and DC Order Prescriptions: New tramadol 50 mg Tablet 25 mg PO Q4H PRN (Reason: pain) 5 Days Qty: 20 RF: 0 Continued pravastatin 80 mg tablet 80 mg PO DAILY RF: 0 prednisolone acetate 1 % drops,suspension 1 drp OPB HS RF: 0 magnesium oxide 500 mg tablet 500 mg PO DAILY RF: 0 Phospha 250 Neutral 250 mg tablet 2 tab PO TID RF: 0 solifenacin 5 mg tablet 5 mg PO QAM RF: 0 acetaminophen [Tylenol Extra Strength] 500 mg Tablet 1,000 mg PO BID PRN (Reason: Pain) RF: 0 ascorbic acid (vitamin C) [Vitamin C] 500 mg Tablet 500 mg PO QAM RF: 0 ferrous sulfate [iron] 325 mg (65 mg iron) Tablet 325 mg PO Q OTHER DAY RF: 0 furosemide 20 mg tablet 20 mg PO DAILY PRN (Reason: Edema) RF: 0 potassium chloride 20 mEq tablet,ER particles/crystals 10 meq PO TID RF: 0 amiodarone 200 mg tablet 200 mg PO QAM RF: 0 Systane (PF) 0.4-0.3 % Dropperette 1 drp OPHTHALMIC (EYE) QID PRN (Reason: Dry Eye(S)) RF: 0 fexofenadine 180 mg Tablet 180 mg PO HS RF: 0 pantoprazole 40 mg tablet,delayed release (DR/EC) 40 mg PO DAILY RF: 0 metoprolol succinate 25 mg tablet extended release 24 hr 25 mg PO DAILY RF: 0 Discontinued Eliquis 5 mg Tablet 5 mg PO BID Qty: 60 RF: 1 Discharge Orders: Discharge Order (Routine); Ordered 07/11/21 Ordered By: Elsia Gill/Other Patient Handouts: Fall Prevention Assessing Risk Admission Data Admit Date/Time: 07/07/21 19:15 Attending Provider: Elisa Doll Admit Provider: Jonnie Coreas Primary Care Provider: Eliazar Reis Other Providers: [facility] ; Jonnie Coreas ; Mikcey Soto ; Jostin Friedman Other Interventions: Discharge Summary Assessment (RN) Last Done: 07/11/21 13:33
== END 2021-07-11 14:15 | DRG 605 ==
LOC: 3E 14:17 → ED 14:17 → 3E 21:27 → 2W 07-07 17:35 → SUATTDRO 07-07 19:15
DX: D69.6 Thrombocytopenia, unspecified; S80.01XA Contusion of right knee, initial encounter; S01.511A Laceration without foreign body of lip, initial encounter; D62 Acute posthemorrhagic anemia; I11.0 Hypertensive heart disease with heart failure; K21.9 Gastro-esophageal reflux disease without esophagitis; Y92.89 Other specified places as the place of occurrence of the external cause; Z79.01 Long term (current) use of anticoagulants; S51.011A Laceration without foreign body of right elbow, initial encounter; I48.0 Paroxysmal atrial fibrillation; I50.32 Chronic diastolic (congestive) heart failure; S01.81XA Laceration without foreign body of other part of head, initial encounter; W01.0XXA Fall on same level from slipping, tripping and stumbling without subsequent striking against object, initial encounter; D64.9 Anemia, unspecified

== ENCOUNTER 2021-08-07 11:06 | Inpatient (IN) ==
[2021-08-07] MEDS ORDERED: SODIUM CHLORIDE 0.9% 1000ML 500 ML IV ONE (11:27)
[2021-08-07] MEDS ORDERED: cefTRIAXone SODIUM 1,000 MG/50 ML BAG IV STA (11:27)
[2021-08-07] MEDS ORDERED: VANCOMYCIN HCL 1,500 MG in SODIUM CHLORIDE 0.9% 500 ML IV ONE (11:29)
[2021-08-07] MEDS ORDERED: VANCOMYCIN CONSULT ACTIVE PRN (11:29)
--- NOTE | 2021-08-07 11:34 | Emergency Department Note ---
Impression & Plan Cellulitis of right leg, Syncope, Ulcer of right leg, Acute cervical sprain, Multiple skin tears, Anemia ED Provider Note NAME: LINAG CRUZ AGE: 85 SEX: F : 1935 ARRIVES VIA: Ambulance INFORMANT: Patient, ED PROVIDER(S): Jozef Arshad DO CHIEF COMPLAINT: Syncope HPI: The patient is an 85-year-old female who is being treated for a right leg infection. The patient has had ongoing symptoms since June. She initially had a fall where she suffered a hematoma to her left leg. She was on blood thinners at the time. She states that she is noticed that this area is becoming more red and swollen and was scheduled for a wound care center follow-up this week. She started noticing the worsening symptoms last week. She was placed on Bactrim recently and had wound cultures done through the [facility] system yesterday. The patient was at wound care center today. When they evaluated her wound they felt she was a candidate for inpatient management and she was sent to the emergency department by ambulance. Unfortunately the patient went to the bathroom she had a syncopal episode. She states she did not strike her head but has neck pain. She has a couple skin tears 1 on her left elbow and 1 on her left leg. She states otherwise she is been compliant with her outpatient medications. She denies having any vomiting. She denies having any abdominal pain or chest pain. She has had no shortness of breath. ROS: See above HPI for pertinent positives & negatives. A total of 10 systems reviewed and were otherwise negative. PAST MEDICAL HISTORY: See Below PAST SURGICAL HISTORY: See Below FAMILY HISTORY: See Below SOCIAL HISTORY: See Below HOME MEDICATIONS: See Below ALLERGIES: See Below VITALS: See Below PHYSICAL EXAMINATION: GENERAL: Patient is awake alert in no acute distress patient is resting comfortably and showing no signs of anxiety EYES: The conjunctivae are clear. The pupils are round and reactive. EARS, NOSE, MOUTH AND THROAT: The nose is without any evidence of any deformity. NECK: Rigid cervical collar was placed prior to arrival. RESPIRATORY: Normal respiratory effort is noted there is no evidence of wheezing rhonchi or rales CARDIOVASCULAR: Regular rate and rhythm noted there no murmurs rubs or gallops normal S1 normal S2. GASTROINTESTINAL: The abdomen is soft. Abdomen is nontender. MUSCULOSKELETAL/EXTREMITIES: There is no evidence of gross deformity full range of motion is noted in the hips and shoulders. SKIN: There are skin tears noted to the left elbow as well as left leg. These are dressed and no active bleeding was noted. There is a large ulcerated area on the medial aspect of the right knee. This is approximately 3 to 4 cm in diameter. There is also significant surrounding erythema consistent with severe cellulitis.. NEUROLOGIC: Patient is awake alert and oriented x3. MEDICAL DECISION MAKING: The patient is an 85-year-old female who presented to the emergency department by ambulance from the wound [facility]. The patient's been trying to manage a large leg ulceration. She had an initial fall and was taking blood thinners. This turned into a hematoma which then turned into a blister. It then started to ulcerate. Over the course last week she then started to have a large area of cellulitis. She was seen at [facility] today and was referred to the emergency department for admission for further management as an inpatient for this severe infection. The patient also had a syncopal episode at the [facility] prior to arrival. I discussed the patient's laboratory and radiographic studies with her. She was treated with IV fluids and IV antibiotics in the emergency department. She was reevaluated multiple times. I did discuss her case [facility] They have agreed to evaluate the patient in the emergency department for further management and disposition. Triage Nursing notes reviewed. Prior medical records reviewed Vital Signs: reviewed and remarkable for elevated blood pressure. Differential diagnosis: Cellulitis, abscess, MRSA infection, DVT, necrotizing fasciitis, dermatitis, drug eruption, allergic reaction, as well as other pathologies. ER treatment provided: See below Diagnostics interpreted by me: ECG: EKG was obtained in the emergency department. My interpretation is sinus rhythm at 61 bpm. There is a first-degree AV block noted. Right bundle branch block pattern was noted. There were no PVCs this was compared to a tracing from July 08, 2021. No changes were noted. Cardiac Monitoring: An order was placed for continuous cardiac monitoring. The monitor shows a rate of 62 bpm with sinus rhythm. Laboratory studies: As stated above and show below. Imaging studies: See below Consultation(s): I discussed this case with Afua who is on-call for the [facility]. Past Med/Surg History Medical History Chronic diastolic CHF (congestive heart failure) GERD (gastroesophageal reflux disease) HLD (hyperlipidemia) HTN (hypertension) MGUS (monoclonal gammopathy of unknown significance) Paroxysmal atrial fibrillation Surgical History H/O: hysterectomy History of total knee arthroplasty S/P aortic valve replacement with bioprosthetic valve S/P repair of paraesophageal hernia Family History Other Family history non-contributory Social History Smoking Status: Never smoker Second Hand Exposure: No; Hx Alcohol Use: Yes Alcohol type: hard liquor Hx Substance Use: No Preferred Language: Romanian Communication Ability: Effective Visual Impairment: Severely Limited Hearing Ability: Hard of Hearing Cover Creaser Required: No Beliefs That Will Affect Care: None marital status: / Current Living Situation: Family Current Living Situation Comment: lives with daughter Feels Safe at Home: Yes caffeine: Yes during the past year weight has: remained stable Assistive Devices: Walker Allergies Allergies Allergy/AdvReac Type Severity Reaction Status Date / Time simvastatin Allergy Unknown ELEVATED Verified 08/07/21 12:04 LIVER ENZYMES oxaprozin AdvReac Intermediate MAKES FEEL Verified 08/07/21 12:04 DEPRESSED Home Meds Home Medications Medication Instructions Recorded Confirmed magnesium oxide 500 mg tablet 500 mg PO QAM 07/15/20 08/07/21 pravastatin 80 mg tablet 80 mg PO QAM 07/15/20 08/07/21 prednisolone acetate 1 % eye 1 drp OPB HS 07/15/20 08/07/21 drops,suspension sodium di- and 2 tab PO TID 07/15/20 08/07/21 monophosphate-potassium phos monobasic 250 mg tablet (Phospha 250 Neutral) solifenacin 5 mg tablet 5 mg PO QAM 07/15/20 08/07/21 acetaminophen 500 mg tablet 1,000 mg PO BID PRN 06/13/21 08/07/21 (Tylenol Extra Strength) amiodarone 200 mg tablet 200 mg PO QAM 06/13/21 08/07/21 ascorbic acid (vitamin C) 500 mg 500 mg PO QAM 06/13/21 08/07/21 tablet (Vitamin C) ferrous sulfate 325 mg (65 mg 325 mg PO Q OTHER DAY 06/13/21 08/07/21 iron) tablet (iron) furosemide 20 mg tablet 20 mg PO DIRECTED PRN 06/13/21 08/07/21 potassium chloride 20 mEq 10 meq PO TID 06/13/21 08/07/21 tablet,extended release(part/cryst) fexofenadine 180 mg tablet 180 mg PO HS 07/06/21 08/07/21 peg 400-propylene glycol (PF) 0.4 1 drp OPHTHALMIC (EYE) QID PRN 07/06/21 08/07/21 %-0.3 % eye drops in a dropperette (Systane (PF)) metoprolol succinate 25 mg 12.5 mg PO QAM tab 08/07/21 08/07/21 tablet,extended release 24 hr sulfamethoxazole 800 1 tab PO BID 08/07/21 08/07/21 mg-trimethoprim 160 mg tablet (Bactrim DS) tramadol 50 mg tablet 50 mg PO Q6H PRN 08/07/21 08/07/21 Results & Data (ED) Vital Signs Vital Signs - 24 hr 08/07/21 11:18 08/07/21 12:26 Temperature 36.6 C Temperature Source Oral Pulse Rate 62 Pulse Rhythm Regular Pulse Strength Normal Respiratory Rate 16 Respiratory Effort / Characteristics Non-Labored Non-Labored Respiratory Depth Normal Respiratory Pattern Regular Blood Pressure 178/97 H Blood Pressure Mean 124 Blood Pressure Position Sitting Pulse Oximetry 97 Oxygen Delivery Method Room Air Room Air Sepsis Recent Fever Within 48 Hours No Sepsis New/Unexplained Change in Mental Status No Sepsis Action Taken by Nursing No Action Required Home Medications Current Medication List: was personally reviewed by me Laboratory Data Attestation: I reviewed the patient's lab results. Result diagrams: 08/07/21 12:02 08/07/21 12:02 Lab Results 08/07/21 08/07/21 08/07/21 Range/Units 12:02 12:02 12:02 WBC 6.24 (4.8-10.8) K/uL RBC 3.41 L (4.2-5.4) M/uL Hgb 10.8 L (12.0-16.0) g/dL Hct 34.5 L (37-47) % MCV 101.2 H (80-100) fL MCH 31.7 (25-34) pg MCHC 31.3 L (32-36) g/dL RDW Std Deviation 67.3 H (36.4-46.3) fL RDW Coeff of Tung 18.1 H (11.5-14.5) % Plt Count 143 (130-400) K/uL MPV 10.0 (7.4-10.4) fL Immature Gran % (Auto) 0.5 % Neut % (Auto) 68.5 % Lymph % (Auto) 14.6 % Chaves % (Auto) 15.2 % Eos % (Auto) 0.6 % Baso % (Auto) 0.6 % Neut # (Auto) 4.27 (1.4-6.5) K/uL Lymph # (Auto) 0.91 L (1.2-3.4) K/uL Chaves # (Auto) 0.95 H (0.11-0.59) K/uL Eos # (Auto) 0.04 (0-0.5) K/uL Baso # (Auto) 0.04 (0-0.2) K/uL Immature Gran # (Auto) 0.03 H (0.00-0.02) K/uL PT 12.6 H (9.0-12.0) Seconds INR 1.2 H (0.9-1.1) APTT 29.1 (21.0-31.0) Seconds PTT Ratio 1.1 Sodium 132 L (136-145) mmol/L Potassium 4.0 (3.5-5.1) mmol/L Chloride 103 (98-107) mmol/L Carbon Dioxide 23 (21-32) mmol/L Anion Gap 6 (3-11) BUN 10 (6-23) mg/dl Creatinine 0.58 L (0.6-1.2) mg/dl Est Cr Clr Drug Dosing Not Reportable Est GFR ( Amer) 98.8 ml/min Est GFR (Non-Af Amer) 85.2 ml/min BUN/Creatinine Ratio 17.2 (10-20) Glucose 87 (70-99(Fasting)) mg/dl Lactate (0.4-2.0) mmol/L Calcium 7.9 L (8.5-10.1) mg/dl Magnesium 1.9 (1.7-2.4) mg/dl Total Bilirubin 0.9 (0.2-1.0) mg/dl AST 26 (13-39) U/L ALT 38 (7-52) U/L Alkaline Phosphatase 187 H (34-104) U/L Troponin I High Sens 13.7 (0-14) pg/ml C-Reactive Protein 3.69 H (0-0.5) mg/dl Total Protein 7.9 (6.0-8.3) gm/dl Albumin 2.5 L (3.4-5.0) gm/dl Globulin 5.4 H (2.5-4.0) gm/dl Albumin/Globulin Ratio 0.5 L (0.9-2) Procalcitonin (0-0.5) ng/ml SARS-CoV-2, RNA, NAAT (NEGATIVE) 08/07/21 08/07/21 08/07/21 Range/Units 12:02 12:02 12:20 WBC (4.8-10.8) K/uL RBC (4.2-5.4) M/uL Hgb (12.0-16.0) g/dL Hct (37-47) % MCV (80-100) fL MCH (25-34) pg MCHC (32-36) g/dL RDW Std Deviation (36.4-46.3) fL RDW Coeff of Tung (11.5-14.5) % Plt Count (130-400) K/uL MPV (7.4-10.4) fL Immature Gran % (Auto) % Neut % (Auto) % Lymph % (Auto) % Chaves % (Auto) % Eos % (Auto) % Baso % (Auto) % Neut # (Auto) (1.4-6.5) K/uL Lymph # (Auto) (1.2-3.4) K/uL Chaves # (Auto) (0.11-0.59) K/uL Eos # (Auto) (0-0.5) K/uL Baso # (Auto) (0-0.2) K/uL Immature Gran # (Auto) (0.00-0.02) K/uL PT (9.0-12.0) Seconds INR (0.9-1.1) APTT (21.0-31.0) Seconds PTT Ratio Sodium (136-145) mmol/L Potassium (3.5-5.1) mmol/L Chloride (98-107) mmol/L Carbon Dioxide (21-32) mmol/L Anion Gap (3-11) BUN (6-23) mg/dl Creatinine (0.6-1.2) mg/dl Est Cr Clr Drug Dosing Est GFR ( Amer) ml/min Est GFR (Non-Af Amer) ml/min BUN/Creatinine Ratio (10-20) Glucose (70-99(Fasting)) mg/dl Lactate 1.1 (0.4-2.0) mmol/L Calcium (8.5-10.1) mg/dl Magnesium (1.7-2.4) mg/dl Total Bilirubin (0.2-1.0) mg/dl AST (13-39) U/L ALT (7-52) U/L Alkaline Phosphatase (34-104) U/L Troponin I High Sens (0-14) pg/ml C-Reactive Protein (0-0.5) mg/dl Total Protein (6.0-8.3) gm/dl Albumin (3.4-5.0) gm/dl Globulin (2.5-4.0) gm/dl Albumin/Globulin Ratio (0.9-2) Procalcitonin 0.23 (0-0.5) ng/ml SARS-CoV-2, RNA, NAAT NEGATIVE (NEGATIVE) Administered Medications Discontinued Medications Ceftriaxone Sodium (Ceftriaxone Sodium 2000mg/70ml D5w) 2,000 mg IV NOW STA Stop: 08/07/21 11:57 Last Admin: 08/07/21 12:19 Dose: 2,000 mg Documented by: [id number] Sodium Chloride (Nss 1000ml) 500 mls @ 999 mls/hr IV .Q31M ONE Stop: 08/07/21 11:57 Last Infusion: 08/07/21 13:11 Dose: 0 mls/hr Documented by: [id number] Admin: 08/07/21 12:19 Dose: 999 mls/hr Documented by: [id number] Imaging Data Radiologist's Impression: Cervical Spine CT 08/07/21 11:27 CT SCAN OF THE CERVICAL SPINE CLINICAL HISTORY: Syncope. COMPARISON STUDY: CT of the cervical spine dated 07/06/2021. TECHNIQUE: CT scan of the cervical spine is performed from the skull base to the upper thoracic spine. Images are reviewed in the axial, sagittal, and coronal planes. IV contrast was not administered for this examination. A dose lowering technique was utilized adhering to the principles of ALARA. FINDINGS: Skeletal structures: The skeletal structures are osteopenic. There is no evidence of fracture or subluxation involving the cervical spine. Vertebral body height and alignment are maintained. There is minimal anterolisthesis at C7-T1 and T2-T3. Anterior osteophytes are seen throughout. The odontoid process and lateral masses are intact. The atlantoaxial articulation is preserved noting productive degenerative change. The spinous processes appear intact. There is moderate to advanced multilevel cervical spondylosis. Uncovertebral and facet arthropathy contribute to neural foraminal narrowing at most levels. Intervertebral discs: There is moderate to advanced disc space narrowing seen at all cervical levels, greatest at C3-C4 and C4-C5. Central canal: Posterior disc osteophyte complexes are seen at all cervical levels from C3-C4 through C6-C7. This likely contributes to multilevel acquired compromise of the central canal. Soft tissues: The prevertebral and paraspinous soft tissues are within normal limits. Calcified sialoliths are noted in the right parotid gland. There is atherosclerotic calcification of the carotid bulbs. Calvarium: The visualized calvarium at the skull base appears intact. Brain parenchyma: Partially visualized brain parenchyma at the skull base is within normal limits. Sinuses and mastoids: The visualized paranasal sinuses are clear. There are trace mastoid effusions. Lung apices: Intralobular septal thickening is noted in the upper lobes.. IMPRESSION: 1. There is no evidence of fracture or subluxation involving the cervical spine. 2. Osteopenia and spondylotic change as above. 3. Intralobular septal thickening is noted in the upper lobes. Correlate clinically for evidence of fluid overload/congestive failure. ACT 112: Negative or not required by law. Electronically signed by: Guillermo Paniagua M.D. 08/07/2021 1:14 PM Chest X-Ray 08/07/21 11:27 XR chest 1V portable CLINICAL HISTORY: Sepsis. Syncope. COMPARISON STUDY: Chest radiograph and chest CT July 15, 2020. FINDINGS: There are median sternotomy wires and a left atrial appendage occluder device. Cardiomegaly is unchanged. There is no pneumothorax or pleural effusion. Interstitial thickening favors mild pulmonary edema. Linear bilateral opacities favor atelectasis. No consolidation to suggest pneumonia. IMPRESSION: Cardiomegaly with interstitial thickening suggestive of mild pulmonary edema. ACT 112: Negative or not required by law. Electronically signed by: Osei Rae M.D. 08/07/2021 12:[address] 08/07/21 11:27 CT SCAN OF THE BRAIN WITHOUT IV CONTRAST CLINICAL HISTORY: Syncope. COMPARISON STUDY: CT of the brain dated 07/06/2021. TECHNIQUE: Unenhanced axial CT scan of the brain is performed from the vertex to the skull base. A dose lowering technique was utilized adhering to the principles of ALARA. FINDINGS: Brain parenchyma: There are age-related involutional changes noting mild s ubcortical and periventricular microangiopathic change. There is no hemorrhage, mass effect, or evidence of acute territorial ischemia by CT criteria. 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 Colin-white matter differentiation is preserved. No extra-axial fluid collection is seen. Ventricles, sulci, cisterns: Prominent secondary to involutional change. Intracranial vasculature: There is atherosclerotic calcification of the cavernous carotid and vertebral arteries. Calvarium: The skeletal structures are osteopenic. No depressed calvarial fracture is identified. Sinuses and mastoids: The paranasal sinuses are clear. There are trace mastoid effusions. Orbits: The bony orbits are grossly intact. There are bilateral ocular lens im plants. IMPRESSION: There is no hemorrhage, mass effect, or evidence of acute territorial ischemia by CT criteria. ACT 112: Negative or not required by law. Electronically signed by: Guillermo Paniagua M.D. 08/07/2021 1:17 PM Knee X-Ray 08/07/21 11:27 XR knee RT 1 or 2V routine CLINICAL HISTORY: Large open wound along the medial aspect of the right knee. Previous fall. COMPARISON STUDY: 07/06/2021 TECHNIQUE: 2 right knee views FINDINGS: Compared to previous examination, a large soft tissue wound is now seen along the medial aspect of the knee measuring at least 7.6 x 6.1 cm. Air is present within it. Bones: There is no evidence for an acute fracture or dislocation. There is no lytic or blastic lesion. Joints: The femoral tibial joint space is maintained. There is narrowing of the patellofemoral joint. There is no evidence for an intra-articular effusion or air within the joint. The bones are in anatomic alignment. Soft tissues: Soft tissue prominence is also present medially related to patient 's body habitus. There is no radiopaque foreign body. IMPRESSION: 1. No acute osseous pathology. 2. Interval development of a large soft tissue ulceration along the medial aspect of the knee with air present. 3. No extension into the joint is demonstrated radiographically. ACT 112: Negative or not required by law. Electronically signed by: Dc Chau M.D. 08/07/2021 12:06 PM Discharge Plan Visit Data Chief Complaint: Fall ED Provider: Jozef Arshad Discharge Problem: Cellulitis of right leg, Syncope, Ulcer of right leg, Acute cervical sprain, Multiple skin tears, Anemia Patient Disposition: Being Evaluated by Hospitalist Forms Stand Alone Forms: [facility] Prescriptions Prescriptions: No Action sulfamethoxazole-trimethoprim [Bactrim DS] 800-160 mg tablet 1 tab PO BID RF: 0 tramadol 50 mg tablet 50 mg PO Q6H PRN (Reason: Pain) RF: 0 pravastatin 80 mg tablet 80 mg PO QAM RF: 0 prednisolone acetate 1 % drops,suspension 1 drp OPB HS RF: 0 magnesium oxide 500 mg tablet 500 mg PO QAM RF: 0 Phospha 250 Neutral 250 mg tablet 2 tab PO TID RF: 0 solifenacin 5 mg tablet 5 mg PO QAM RF: 0 acetaminophen [Tylenol Extra Strength] 500 mg Tablet 1,000 mg PO BID PRN (Reason: Pain) RF: 0 ascorbic acid (vitamin C) [Vitamin C] 500 mg Tablet 500 mg PO QAM RF: 0 ferrous sulfate [iron] 325 mg (65 mg iron) Tablet 325 mg PO Q OTHER DAY RF: 0 furosemide 20 mg tablet 20 mg PO DIRECTED PRN (Reason: Edema) RF: 0 potassium chloride 20 mEq tablet,ER particles/crystals 10 meq PO TID RF: 0 amiodarone 200 mg tablet 200 mg PO QAM RF: 0 Systane (PF) 0.4-0.3 % Dropperette 1 drp OPHTHALMIC (EYE) QID PRN (Reason: Dry Eye(S)) RF: 0 fexofenadine 180 mg Tablet 180 mg PO HS RF: 0 metoprolol succinate 25 mg tablet extended release 24 hr 12.5 mg PO QAM RF: 0 Referrals Referrals: Eliazar Reis MD [Primary Care Provider] -
[2021-08-07] MEDS ORDERED: cefTRIAXone SODIUM 2000MG/70ML D5W IV STA (11:56)
--- NOTE | 2021-08-07 12:08 | XRay Report ---
XR knee RT 1 or 2V routine CLINICAL HISTORY: Large open wound along the medial aspect of the right knee. Previous fall. COMPARISON STUDY: 07/06/2021 TECHNIQUE: 2 right knee views FINDINGS: Compared to previous examination, a large soft tissue wound is now seen along the medial as pect of the knee measuring at least 7.6 x 6.1 cm. Air is present within it. Bones: There is no evidence for an acute fracture or dislocation. There is no lytic or blastic lesion . Joints: The femoral tibial joint space is maintained. There is narrowing of the patellofemoral joint. There is no evidence for an intra-articular effusion or air within the joint. The bones are in anato fariba alignment. Soft tissues: Soft tissue prominence is also present medially related to patient's body habitus. Ther e is no radiopaque foreign body. IMPRESSION: 1. No acute osseous pathology. 2. Interval development of a large soft tissue ulceration along the medial aspect of the knee with ai r present. 3. No extension into the joint is demonstrated radiographically. ACT 112: Negative or not required by law. Electronically signed by: Dc Chau M.D. 08/07/2021 12:06 PM
--- NOTE | 2021-08-07 12:09 | XRay Report ---
XR chest 1V portable CLINICAL HISTORY: Sepsis. Syncope. COMPARISON STUDY: Chest radiograph and chest CT July 15, 2020. FINDINGS: There are median sternotomy wires and a left atrial appendage occluder device. Cardiomegaly is unchanged. There is no pneumothorax or pleural effusion. Interstitial thickening favors mild pulm onary edema. Linear bilateral opacities favor atelectasis. No consolidation to suggest pneumonia. IMPRESSION: Cardiomegaly with interstitial thickening suggestive of mild pulmonary edema. ACT 112: Negative or not required by law. Electronically signed by: Osei Rae M.D. 08/07/2021 12:08 PM
[2021-08-07 12:29] LABS: Basophils # (auto) 0.04 K/uL (0-0.2); Basophils % (auto) 0.6 %; Eosinophils # (auto) 0.04 K/uL (0-0.5); Eosinophils % (auto) 0.6 %; Hematocrit (blood only) 34.5 % (37-47); Hemoglobin 10.8 g/dL (12.0-16.0); Immature Granulocytes # (auto) 0.03 K/uL (0.00-0.02); Immature Granulocytes % (auto) 0.5 %; Lymphocytes # (auto) 0.91 K/uL (1.2-3.4); Lymphocytes % (auto) 14.6 %; Mean Corpuscular Hemoglobin 31.7 pg (25-34); Mean Corpuscular Hgb Conc 31.3 g/dL (32-36); Mean Corpuscular Volume 101.2 fL (80-100); Monocytes # (auto) 0.95 K/uL (0.11-0.59); Monocytes % (auto) 15.2 %; Neutrophils # (auto) 4.27 K/uL (1.4-6.5); Neutrophils % (auto) 68.5 %; Platelet Count 143 K/uL (130-400); RDW Coefficient of Variation 18.1 % (11.5-14.5); RDW Standard Deviation 67.3 fL (36.4-46.3); Red Blood Count 3.41 M/uL (4.2-5.4); White Blood Count 6.24 K/uL (4.8-10.8)
[2021-08-07 12:36] LABS: INR 1.2 (0.9-1.1); Partial Thromboplastin Ratio 1.1; Partial Thromboplastin Time 29.1 Seconds (21.0-31.0); Prothrombin Time 12.6 Seconds (9.0-12.0)
[2021-08-07 12:48] LABS: Alanine Aminotransferase 38 U/L (7-52); Albumin Globulin Ratio 0.5 (0.9-2); Albumin Level 2.5 gm/dl (3.4-5.0); Alkaline Phosphatase 187 U/L (34-104); Anion Gap 6 (3-11); Aspartate Aminotransferase 26 U/L (13-39); BUN Creatinine Ratio 17.2 (10-20); Bilirubin,Total 0.9 mg/dl (0.2-1.0); Blood Urea Nitrogen 10 mg/dl (6-23); C Reactive Protein 3.69 mg/dl (0-0.5); Calcium 7.9 mg/dl (8.5-10.1); Carbon Dioxide 23 mmol/L (21-32); Chloride 103 mmol/L (98-107); Est GFR (African American) 98.8 ml/min; Est GFR (Non-African American) 85.2 ml/min; Globulin 5.4 gm/dl (2.5-4.0); Glucose 87 mg/dl (70-99(Fasting)); Magnesium 1.9 mg/dl (1.7-2.4); Sodium 132 mmol/L (136-145); Total Protein 7.9 gm/dl (6.0-8.3)
[2021-08-07 12:49] LABS: Troponin I High Sensitivity 13.7 pg/ml (0-14)
--- NOTE | 2021-08-07 13:08 | History & Physical Report ---
Date of Service August 07, 2021 Assessment & Plan (1) Infected wound: (2) Cellulitis of leg, right: Plan: Patient with history fall resulting in large right knee hematoma on 07/06/2021. During hospital admission ortho had attempted aspiration aspiration however no significant fluid removed. Bactrim started outpatient on 08/06/21 by PCP for right knee wound and cellulitis 08/06/2021 outpatient Preliminary wound culture: Many oxidase positive nonlactose vomiting gram-negative bacilli In ER vitals stable,afebrile. No leukocytosis. Lactate WNL, procalcitonin: 0.23. CRP and ESR elevated Right Knee Xray: No acute osseous pathology. Interval development of a large s oft tissue ulceration along the medial aspect of the knee with air present. No extension into the joint is demonstrated radiographically. Blood cultures pending In ER given Rocephin, vancomycin Wound culture Start cefepime, vancomycin MRI knee r/o osteomyelitis Wound nurse consult Ortho consult N.p.o. midnight CBC, BMP in a.m. (3) Fall: Plan: Fall today in bathroom at wound clinic. Patient felt herself falling to left and fell to the floor. Does not think had syncope or hit head CT Head:No acute findings CT C-spine: no evidence of fracture or subluxation involving the cervical spine Tele to monitor for arrhythmia Fall precautions Will need PT eval after seen by ortho and prior to discharge (4) Paroxysmal atrial fibrillation: Plan: No longer on anticoagulation Continue amiodarone, metoprolol succinate (5) Chronic diastolic CHF (congestive heart failure): Plan: CXR: Cardiomegaly with interstitial thickening suggestive of mild pulmonary edema Clinically patient appears euvolemic At home is on Lasix as needed. Monitor I's and O's, volume status low-salt (6) Anemia: (7) Thrombocytopenia: Plan: Chronic anemia, chronic thrombocytopenia Hgb: 10.8. Baseline~11. Patient with history of acute on chronic anemia 1 month ago secondary to right knee hematoma and required 2 units PRBC PLT: 143. Baseline in low 100's DVT Prophylaxis Heparin SQ Full Code as per discussion with pt Follows with Dr Reis for routine care Pt was seen and care coordinated with Dr Malik. See addendum History of Present Illness Chief Complaint: Wound infection Primary Care Provider: Eliazar Reis MD Patient is 85 y/o F with PMH paroxysmal atrial fibrillation no longer anticoagulated on Eliquis, chronic diastolic CHF, MGUS, history of paraesophageal hernia repair resented to ER for right knee wound. Patient with history hospitalization 07/06/2021-07/12/2021 for fall resulting in large right knee hematoma. During admission was seen by Ortho and there was attempt at aspiration however no significant fluid removed. Patient had acute on chronic anemia with drop of hemoglobin down to 6.5 and was given 2 units PRBC. She was discharged from the hospital [facility] discharged there on 07/22/2021. Reports had some drainage and small opening at that time. Reported blisters at right knee have opened while at home. Patient having home care nursing and home PT. Changing dressing everyday. Noticed increased drainage almost one week ago. Reports temperature of 100.9F on 08/01/2021. Reports redness to right knee past several days. Seen at PCPs office 08/06/2021 for cellulitis, wound culture was obtained and patient was started on Bactrim.Preliminary wound culture: Many oxidase positive nonlactose vomiting gram-negative bacilli. Today patient was being seen at wound clinic for right knee wound and there was concern for infection and patient was referred to ER. While at wound clinic is reported she had a fall episode. Patient states was using the bathroom and she felt herself falling to left and fell to the floor. Patient does not think she hit or head or had syncope. Patient's daughter reports she was outside of the bathroom and heard the patient yell and then heard her fall and patient was able to unlock the bathroom door immediately so she does not think patient had syncope. Patient denies any SOB, CP, dizziness, palpitations prior to fall. She was placed in c- collar and transported to ER. Denies diaphoresis, N/V/D/C, BORGES, dizziness, syncope, vision changes, neck pain, CP, SOB, orthopnea, palpitations, cough, sore throat, choking, otalgia, rhinorrhea, abdominal pain, paresthesias, weakness, increased extremity edema, rashes, urinary symptoms. Allergies Allergy/AdvReac Type Severity Reaction Status Date / Time simvastatin Allergy Unknown ELEVATED Verified 08/07/21 12:04 LIVER ENZYMES oxaprozin AdvReac Intermediate MAKES FEEL Verified 08/07/21 12:04 DEPRESSED Home Medications Medication Instructions Recorded Confirmed Type magnesium oxide 500 mg tablet 500 mg PO QAM 07/15/20 08/07/21 History pravastatin 80 mg tablet 80 mg PO QAM 07/15/20 08/07/21 History prednisolone acetate 1 % eye 1 drp OPB HS 07/15/20 08/07/21 History drops,suspension sodium di- and 2 tab PO TID 07/15/20 08/07/21 History monophosphate-potassium phos monobasic 250 mg tablet (Phospha 250 Neutral) solifenacin 5 mg tablet 5 mg PO QAM 07/15/20 08/07/21 History acetaminophen 500 mg tablet 1,000 mg PO BID PRN 06/13/21 08/07/21 History (Tylenol Extra Strength) amiodarone 200 mg tablet 200 mg PO QAM 06/13/21 08/07/21 History ascorbic acid (vitamin C) 500 mg 500 mg PO QAM 06/13/21 08/07/21 History tablet (Vitamin C) ferrous sulfate 325 mg (65 mg 325 mg PO Q OTHER DAY 06/13/21 08/07/21 History iron) tablet (iron) furosemide 20 mg tablet 20 mg PO DIRECTED PRN 06/13/21 08/07/21 History potassium chloride 20 mEq 10 meq PO TID 06/13/21 08/07/21 History tablet,extended release(part/cryst) fexofenadine 180 mg tablet 180 mg PO HS 07/06/21 08/07/21 History peg 400-propylene glycol (PF) 0.4 1 drp OPHTHALMIC (EYE) QID PRN 07/06/21 08/07/21 History %-0.3 % eye drops in a dropperette (Systane (PF)) metoprolol succinate 25 mg 12.5 mg PO QAM tab 08/07/21 08/07/21 History tablet,extended release 24 hr sulfamethoxazole 800 1 tab PO BID 08/07/21 08/07/21 History mg-trimethoprim 160 mg tablet (Bactrim DS) tramadol 50 mg tablet 50 mg PO Q6H PRN 08/07/21 08/07/21 History Past Med/Surg History Medical History Chronic diastolic CHF (congestive heart failure) GERD (gastroesophageal reflux disease) HLD (hyperlipidemia) HTN (hypertension) MGUS (monoclonal gammopathy of unknown significance) Paroxysmal atrial fibrillation Surgical History H/O: hysterectomy History of total knee arthroplasty S/P aortic valve replacement with bioprosthetic valve S/P repair of paraesophageal hernia Family History (Updated 08/07/21 @ 14:18 by Anahi Orellana PA-C) Other Cancer Diabetes Social History Smoking Status: Never smoker Second Hand Exposure: No; Hx Alcohol Use: Yes Alcohol type: hard liquor Hx Substance Use: No Preferred Language: Upper Sorbian Communication Ability: Effective Visual Impairment: Severely Limited Hearing Ability: Hard of Hearing Perinatal Tech Required: No Beliefs That Will Affect Care: None marital status: / Current Living Situation: Family Current Living Situation Comment: lives with daughter Feels Safe at Home: Yes caffeine: Yes during the past year weight has: remained stable Assistive Devices: Walker Review of Systems Review of Systems: All systems reviewed & are unremarkable except as noted in HPI & below Physical Exam Physical Exam: General: no distress, WDWN Head: normocephalic, atraumatic Eyes: conjunctiva non-injected, anicteric ENT: normal inspection external ears, nose, mucous membranes moist Neck: supple, trachea midline Lungs: clear, no respiratory distress, faint rales noted LLL that clears with further deep breathing, no wheezing/rhonchi CV: RRR, + murmur, no pretibial edema Abd: normal BS, soft, non-tender Ext: no calf tenderness, RLE: +right knee +open wound approx 7cm x 8cm with foul odor noted, +surrounding erythema to knee extending distal leg, +edema right knee Neuro: A&O x 3, no focal deficits noted, normal affect Skin: warm, dry, skin tear left elbow, other as above in extremities Results & Data Results & Data ([facility]) Vital Signs (Past 12 Hours) Vital Signs Temp Pulse Resp BP Pulse Ox 08/07/21 11:18 36.6 C 62 16 178/97 H 97 Laboratory Results Short CBC 08/07/21 Range/Units 12:02 WBC 6.24 (4.8-10.8) K/uL Hgb 10.8 L (12.0-16.0) g/dL Hct 34.5 L (37-47) % Plt Count 143 (130-400) K/uL BMP 08/07/21 12:02 Sodium 132 L Potassium 4.0 Chloride 103 Carbon Dioxide 23 BUN 10 Creatinine 0.58 L Glucose 87 Calcium 7.9 L Liver Function 08/07/21 Range/Units 12:02 Total Bilirubin 0.9 (0.2-1.0) mg/dl AST 26 (13-39) U/L ALT 38 (7-52) U/L Alkaline Phosphatase 187 H (34-104) U/L Albumin 2.5 L (3.4-5.0) gm/dl Diagnostic Findings Cervical Spine CT 08/07/21 11:27 CT SCAN OF THE CERVICAL SPINE CLINICAL HISTORY: Syncope. COMPARISON STUDY: CT of the cervical spine dated 07/06/2021. TECHNIQUE: CT scan of the cervical spine is performed from the skull base to the upper thoracic spine. Images are reviewed in the axial, sagittal, and coronal planes. IV contrast was not administered for this examination. A dose lowering technique was utilized adhering to the principles of ALARA. FINDINGS: Skeletal structures: The skeletal structures are osteopenic. There is no evidence of fracture or subluxation involving the cervical spine. Vertebral body height and alignment are maintained. There is minimal anterolisthesis at C7-T1 and T2-T3. Anterior osteophytes are seen throughout. The odontoid process and lateral masses are intact. The atlantoaxial articulation is preserved noting productive degenerative change. The spinous processes appear intact. There is moderate to advanced multilevel cervical spondylosis. Uncovertebral and facet arthropathy contribute to neural foraminal narrowing at most levels. Intervertebral discs: There is moderate to advanced disc space narrowing seen at all cervical levels, greatest at C3-C4 and C4-C5. Central canal: Posterior disc osteophyte complexes are seen at all cervical levels from C3-C4 through C6-C7. This likely contributes to multilevel acquired compromise of the central canal. Soft tissues: The prevertebral and paraspinous soft tissues are within normal limits. Calcified sialoliths are noted in the right parotid gland. There is atherosclerotic calcification of the carotid bulbs. Calvarium: The visualized calvarium at the skull base appears intact. Brain parenchyma: Partially visualized brain parenchyma at the skull base is within normal limits. Sinuses and mastoids: The visualized paranasal sinuses are clear. There are trace mastoid effusions. Lung apices: Intralobular septal thickening is noted in the upper lobes.. IMPRESSION: 1. There is no evidence of fracture or subluxation involving the cervical spine. 2. Osteopenia and spondylotic change as above. 3. Intralobular septal thickening is noted in the upper lobes. Correlate clinically for evidence of fluid overload/congestive failure. ACT 112: Negative or not required by law. Electronically signed by: Guillermo Paniagua M.D. 08/07/2021 1:14 PM Chest X-Ray 08/07/21 11:27 XR chest 1V portable CLINICAL HISTORY: Sepsis. Syncope. COMPARISON STUDY: Chest radiograph and chest CT July 15, 2020. FINDINGS: There are median sternotomy wires and a left atrial appendage occluder device. Cardiomegaly is unchanged. There is no pneumothorax or pleural effusion. Interstitial thickening favors mild pulmonary edema. Linear bilateral opacities favor atelectasis. No consolidation to suggest pneumonia. IMPRESSION: Cardiomegaly with interstitial thickening suggestive of mild pulmonary edema. ACT 112: Negative or not required by law. Electronically signed by: Osei Rae M.D. 08/07/2021 12:[address] 08/07/21 11:27 CT SCAN OF THE BRAIN WITHOUT IV CONTRAST CLINICAL HISTORY: Syncope. COMPARISON STUDY: CT of the brain dated 07/06/2021. TECHNIQUE: Unenhanced axial CT scan of the brain is performed from the vertex to the skull base. A dose lowering technique was utilized adhering to the principles of ALARA. FINDINGS: Brain parenchyma: There are age-related involutional changes noting mild subcortical and periventricular microangiopathic change. There is no hemorrhage, mass effect, or evidence of acute territorial ischemia by CT criteria. 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 Colin-white matter differentiation is preserved. No extra-axial fluid collection is seen. Ventricles, sulci, cisterns: Prominent secondary to involutional change. Intracranial vasculature: There is atherosclerotic calcification of the cavernous carotid and vertebral arteries. Calvarium: The skeletal structures are osteopenic. No depressed calvarial fracture is identified. Sinuses and mastoids: The paranasal sinuses are clear. There are trace mastoid effusions. Orbits: The bony orbits are grossly intact. There are bilateral ocular lens implants. IMPRESSION: There is no hemorrhage, mass effect, or evidence of acute territorial ischemia by CT criteria. ACT 112: Negative or not required by law. Electronically signed by: Guillermo Paniagua M.D. 08/07/2021 1:17 PM Knee X-Ray 08/07/21 11:27 XR knee RT 1 or 2V routine CLINICAL HISTORY: Large open wound along the medial aspect of the right knee. Previous fall. COMPARISON STUDY: 07/06/2021 TECHNIQUE: 2 right knee views FINDINGS: Compared to previous examination, a large soft tissue wound is now seen along the medial aspect of the knee measuring at least 7.6 x 6.1 cm. Air is present within it. Bones: There is no evidence for an acute fracture or dislocation. There is no lytic or blastic lesion. Joints: The femoral tibial joint space is maintained. There is narrowing of the patellofemoral joint. There is no evidence for an intra-articular effusion or air within the joint. The bones are in anatomic alignment. Soft tissues: Soft tissue prominence is also present medially related to patient's body habitus. There is no radiopaque foreign body. IMPRESSION: 1. No acute osseous pathology. 2. Interval development of a large soft tissue ulceration along the medial aspect of the knee with air present. 3. No extension into the joint is demonstrated radiographically. ACT 112: Negative or not required by law. Electronically signed by: Dc Chau M.D. 08/07/2021 12:06 PM Supervising Physician Co-Signing Physician Notes Pt is a 85 y/o F with hx of Afib s/p left appendage clip (off of AC), AVR, MGUS, Chronic anemia (bl hgb: 9-10), Thrombocytopenia, Severe tricuspid regurgitation, Moderate mitral regurgitation, HFpEF, HLD, recent hospital admission for R knee hematoma s/p fall admitted for worsening R knee infection with another recent fall. Had a visit with PCP yesterday and the wound cx: Many Oxidase positive non- lactose fermenting gram negative bacilliAbnormal PE: NAD Cardiac: Normal S1/S2, soft systolic murmur Lungs: CTA, no crackles or wheezing Abd: soft, ND, NT Skin: L knee area: swollen, erythematous and warmth to touch --- open wound ([id number]) near the medial knee with purulent and serosanguineous discharge. Psych: AAOx3 and normal affect A/P: R knee open wound infection: -recent wound cx + for oxidase positive, non lactose fermenting G- bacilli -wound Cx and Bcx obtained -will start the pt on vanc and cefepime -Due to the size of the wound will get MRI knee with contrast -ortho and Wound nurse consult -PT/OT Recent Fall: -mechanical fall -will get PT/OT - CT head and CT spine: no acute finding Afib (not on AC) and HFpEF: -admit to tele -CXR showed possible pulm edema -on exam pt did not appear fluid overloaded -will continue home Lasix dose Agree with A/P by Anahi Orellana PA-C (1) Fall Encounter type: initial encounter Qualified Code(s): W19.XXXA - Unspecified fall, initial encounter
--- NOTE | 2021-08-07 13:16 | CT Scan Report ---
CT SCAN OF THE CERVICAL SPINE CLINICAL HISTORY: Syncope. COMPARISON STUDY: CT of the cervical spine dated 07/06/2021. TECHNIQUE: CT scan of the cervical spine is performed from the skull base to the upper thoracic spine . Images are reviewed in the axial, sagittal, and coronal planes. IV contrast was not administered fo r this examination. A dose lowering technique was utilized adhering to the principles of ALARA. FINDINGS: Skeletal structures: The skeletal structures are osteopenic. There is no evidence of fracture or subl uxation involving the cervical spine. Vertebral body height and alignment are maintained. There is mi nimal anterolisthesis at C7-T1 and T2-T3. Anterior osteophytes are seen throughout. The odontoid proc ess and lateral masses are intact. The atlantoaxial articulation is preserved noting productive degen erative change. The spinous processes appear intact. There is moderate to advanced multilevel cervica l spondylosis. Uncovertebral and facet arthropathy contribute to neural foraminal narrowing at most l evels. Intervertebral discs: There is moderate to advanced disc space narrowing seen at all cervical levels, greatest at C3-C4 and C4-C5. Central canal: Posterior disc osteophyte complexes are seen at all cervical levels from C3-C4 through C6-C7. This likely contributes to multilevel acquired compromise of the central canal. Soft tissues: The prevertebral and paraspinous soft tissues are within normal limits. Calcified sialo liths are noted in the right parotid gland. There is atherosclerotic calcification of the carotid bul bs. Calvarium: The visualized calvarium at the skull base appears intact. Brain parenchyma: Partially visualized brain parenchyma at the skull base is within normal limits. Sinuses and mastoids: The visualized paranasal sinuses are clear. There are trace mastoid effusions. Lung apices: Intralobular septal thickening is noted in the upper lobes.. IMPRESSION: 1. There is no evidence of fracture or subluxation involving the cervical spine. 2. Osteopenia and spondylotic change as above. 3. Intralobular septal thickening is noted in the upper lobes. Correlate clinically for evidence of f luid overload/congestive failure. ACT 112: Negative or not required by law. Electronically signed by: Guillermo Paniagua M.D. 08/07/2021 1:14 PM
--- NOTE | 2021-08-07 13:18 | CT Scan Report ---
CT SCAN OF THE BRAIN WITHOUT IV CONTRAST CLINICAL HISTORY: Syncope. COMPARISON STUDY: CT of the brain dated 07/06/2021. TECHNIQUE: Unenhanced axial CT scan of the brain is performed from the vertex to the skull base. A do se lowering technique was utilized adhering to the principles of ALARA. FINDINGS: Brain parenchyma: There are age-related involutional changes noting mild subcortical and periventric ular microangiopathic change. There is no hemorrhage, mass effect, or evidence of acute territorial i schemia by CT criteria. 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 Colin-white matter differentiation is preserved. No extra-axial fluid collection is seen. Ventricles, sulci, cisterns: Prominent secondary to involutional change. Intracranial vasculature: There is atherosclerotic calcification of the cavernous carotid and vertebr al arteries. Calvarium: The skeletal structures are osteopenic. No depressed calvarial fracture is identified. Sinuses and mastoids: The paranasal sinuses are clear. There are trace mastoid effusions. Orbits: The bony orbits are grossly intact. There are bilateral ocular lens implants. IMPRESSION: There is no hemorrhage, mass effect, or evidence of acute territorial ischemia by CT leobardot seth. ACT 112: Negative or not required by law. Electronically signed by: Guillermo Paniagua M.D. 08/07/2021 1:17 PM
[2021-08-07] MEDS ORDERED: CONSULT PHARMACY STA (13:47)
--- NOTE | 2021-08-07 13:54 | Electrocardiogram Report ---
Test Reason : Blood Pressure : / mmHG Vent. Rate : 061 BPM Atrial Rate : 061 BPM P-R Int : 214 ms QRS Dur : 168 ms QT Int : 488 ms P-R-T Axes : 079 -53 061 degrees QTc Int : 491 ms Sinus rhythm with 1st degree A-V block Right bundle branch block Left anterior fascicular block Bifascicular block Left ventricular hypertrophy with repolarization abnormality Abnormal ECG When compared with ECG of 08-JUL-2021 09:24, T wave inversion no longer evident in Inferior leads Confirmed by Jozef Shields ([id number]) on 08/07/2021 1:54:31 PM Referred By: REFERRED SELF Confirmed By:Jozef Shields
--- NOTE | 2021-08-07 15:57 | Anesthesiology Consultation ---
Date of Service August 07, 2021 Assessment & Plan Chart Review Chart Review: Acceptable Risk for Surgery and Patient NOT seen in Pre Admission Testing Consults Requested none ASA ASA4 Proposed Anesthesia Anesthesia Type: General History Surgery Operation Date: 08/08/21 11:25 Proposed Procedures p Incision and Drainage Evacuation Hematoma Knee Right - Juan Pablo A Danial, DO Height/Weight Weight: 77 kg Allergies Allergy/AdvReac Type Severity Reaction Status Date / Time simvastatin Allergy Unknown ELEVATED Verified 08/07/21 12:04 LIVER ENZYMES oxaprozin AdvReac Intermediate MAKES FEEL Verified 08/07/21 12:04 DEPRESSED Medications Home Medications Medication Instructions Recorded Confirmed Last Taken magnesium oxide 500 mg tablet 500 mg PO QAM 07/15/20 08/07/21 08/07/21 pravastatin 80 mg tablet 80 mg PO QAM 07/15/20 08/07/21 08/07/21 prednisolone acetate 1 % eye 1 drp OPB 07/15/20 08/07/21 08/06/21 drops,suspension sodium di- and 2 tab PO TID 07/15/20 08/07/21 08/07/21 monophosphate-potassium phos monobasic 250 mg tablet (Phospha 250 Neutral) solifenacin 5 mg tablet 5 mg PO QAM 07/15/20 08/07/21 08/07/21 acetaminophen 500 mg tablet 1,000 mg PO BID PRN 06/13/21 08/07/21 08/07/21 (Tylenol Extra Strength) amiodarone 200 mg tablet 200 mg PO QAM 06/13/21 08/07/21 08/07/21 ascorbic acid (vitamin C) 500 mg 500 mg PO QAM 06/13/21 08/07/21 08/07/21 tablet (Vitamin C) ferrous sulfate 325 mg (65 mg 325 mg PO Q OTHER DAY 06/13/21 08/07/21 07/05/21 iron) tablet (iron) furosemide 20 mg tablet 20 mg PO DIRECTED PRN 06/13/21 08/07/21 Unknown potassium chloride 20 mEq 10 meq PO TID 06/13/21 08/07/21 08/07/21 tablet,extended release(part/cryst) fexofenadine 180 mg tablet 180 mg PO 07/06/21 08/07/21 08/06/21 peg 400-propylene glycol (PF) 0.4 1 drp OPHTHALMIC (EYE) QID PRN 07/06/21 08/07/21 Unknown %-0.3 % eye drops in a dropperette (Systane (PF)) metoprolol succinate 25 mg 12.5 mg PO QAM tab 08/07/21 08/07/21 08/07/21 tablet,extended release 24 hr sulfamethoxazole 800 1 tab PO BID 08/07/21 08/07/21 08/07/21 mg-trimethoprim 160 mg tablet (Bactrim DS) tramadol 50 mg tablet 50 mg PO Q6H PRN 08/07/21 08/07/21 08/06/21 Past Medical History Medical History Chronic diastolic CHF (congestive heart failure) GERD (gastroesophageal reflux disease) HLD (hyperlipidemia) HTN (hypertension) MGUS (monoclonal gammopathy of unknown significance) Paroxysmal atrial fibrillation Exercise / Class Metabolic Activity III < 4 Walking/Shop/Light housework Past Family History Family History Other Cancer Diabetes Past Surgical History Surgical History H/O: hysterectomy History of total knee arthroplasty S/P aortic valve replacement with bioprosthetic valve S/P repair of paraesophageal hernia Past Anesthesia History No Hx of Anesthesia Complications and No Family Hx of Anesthesia Complications History of PONV No Hx of PONV and No Hx of Motion Sickness Social History Smoking Status: Never smoker Hx Alcohol Use: Yes Alcohol type: hard liquor alcohol intake frequency: holidays/special occasions only Hx Substance Use: No substance use type: does not use Physical Exam Vital Signs Last Vital Signs Temp 36.6 C 08/07/21 11:18 Pulse 60 08/07/21 14:00 Resp 24 08/07/21 14:00 BP 155/60 H 08/07/21 14:00 Pulse Ox 99 08/07/21 14:00 Testing Laboratory Results 08/07/21 12:02 08/07/21 12:02 PT 12.6 Seconds (9.0-12.0) H 08/07/21 12:02 INR 1.2 (0.9-1.1) H 08/07/21 12:02 APTT 29.1 Seconds (21.0-31.0) 08/07/21 12:02 Electrocardiogram Date: 08/07/21 Findings: + NSR @ (at 6 w/1st degree AVB;RBBB;LAFB;BFB;LVH) Chest X-Ray Date: 08/07/21 Findings: + cardiomegaly and + pulmonary vascular congestion (interstitial thickening suggestive of mild pulmonary edema) Echocardiogram Date: 07/16/20 EF: 60% LV Function: normal RWMA: + none Other Findings: + LVH (moderate) and + diastolic dysfunction (grade 2) Valvular Disease: + MR (mild) Bioprosthetic AV functions normally TR-mild; Mild pulmonary HTN 35 mmhg
[2021-08-07] MEDS ORDERED: GADOBUTROL 65ML VIAL IV ONE (16:26)
--- NOTE | 2021-08-07 16:54 | Magnetic Resonance Report ---
MRI OF THE RIGHT KNEE COMBO CLINICAL HISTORY: Right knee pain and swelling. Hematoma. COMPARISON STUDY: CT scan of the right knee dated 07/06/2021. Radiographs of the right knee dated 08/07. TECHNIQUE: MRI of the right knee was performed utilizing proton density, T1, and T2-weighted sequence s in the axial, sagittal, coronal planes. Contrast-enhanced sequences are acquired following the IV a dministration of 7.5 cc of Gadavist. The examination is degraded by me size/edema. This necessitated using the wrap coil. FINDINGS: Menisci: Intact as visualized. Ligaments: The anterior and posterior cruciate ligaments are intact. The medial and lateral collatera l ligaments are within normal limits. Extensor mechanism: The extensor mechanism is intact. Hoffa's fat pad is normal in appearance. 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 There is cortical irregu larity of the patella. There is mild degenerative thinning of the articular cartilage along the weigh tbearing surface in the medial and lateral compartments. Marginal osteophytes are noted. Marrow edema within the inferior aspect of the patella is likely on a degenerative basis. There is no marrow abno rmality identified typical for osteomyelitis. A linear vertical defect in the patella is seen on darshan nal image #11. Joint effusion: There is a small joint effusion. Soft tissues: There is marked soft tissue edema present around the knee. A cutaneous defect is sugges liss overlying the medial aspect of the knee, possibly representing a large wound. There is a serpigin ous horseshoe shaped collection identified around the anterior aspect of the knee. This is T1 hypoint ense, T2 hyperintense, and shows. Peripheral thickening and enhancement. The collection measures appr oximately 10 x 1.5 x 12 cm in aggregate dimension. This extends from the distal femoral metadiaphysis to the level of the proximal tibial diaphysis. Foci of gas are noted within this collection. There i s generalized atrophy of the regional musculature patchy. There is mild diffuse intramuscular edema s uggesting a nonspecific myositis. This is greatest in the lateral calf musculature. IMPRESSION: 1. There is no marrow abnormality identified typical for osteomyelitis. 2. There is marked soft tissue edema present around the knee. A large cutaneous defect is suggested m edially and suggests an open wound. Clinical correlation will be required. 3. There is a large complex and peripherally enhancing horseshoe-shaped fluid collection identified a round the anterior aspect of the knee as detailed above. This appeared hyperdense on the 07/06/2021 CT scan and was typical in appearance for a hematoma at that time. The sterility of this fluid cannot b e assessed, and abscess is not excluded. Foci of gas within the collection are nonspecific and may be related to the open wound. Clinical correlation will be essential. 4. 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 5. The menisci, cruciate ligaments, and collateral ligaments are grossly intact. 6. There is a vertical defect identified in the patella which is of indeterminant significance. No fr acture was shown by CT on the 07/06/2021 examination. Marrow edema in the patella is nonspecific and m ay be related to severe degenerative change. A nondisplaced patellar fracture is not excluded. 7. There is a nonspecific myositis of the regional musculature. 8. Small joint effusion. 9. Additional findings as above. ACT 112: Negative or not required by law. Electronically signed by: Guillermo Paniagua M.D. 08/07/2021 4:52 PM
[2021-08-07] MEDS ORDERED: POLYETHYLENE (MIRALAX) 17 GM PACK PO PRN (17:05)
[2021-08-07] MEDS ORDERED: traMADol HCL 50 MG TABLET PO PRN (17:05)
[2021-08-07] MEDS ORDERED: ONDANSETRON INJ 2 MG/ML 2 ML VIAL IV PRN (17:05)
[2021-08-07] MEDS ORDERED: ARTIFICIAL TEARS OP PRN (17:14)
--- NOTE | 2021-08-07 17:47 | Orthopedic Consultation ---
Date of Service August 07, 2021 Assessment & Plan (1) Infected wound: The cultures obtained from her primary care physician yesterday grew Gram negative bacilli. She is currently on cefepime. I spoke with the hospitalist about changing her to vancomycin and we will use our best judgment for that. I placed her on the OR schedule for first thing tomorrow morning. I think it is important that we do a full irrigation and debridement and possible application of a VAC sponge. Her daughter is present with her in the room today. They understand the risk, benefits, and alternatives procedure elected proceed. Questions were answered at bedside. Time was spent scribed procedure and post e xpectations. She was made n.p.o. past midnight tonight. She will be seen by anesthesia. History of Present Illness Reason for Consultation: Open wound right knee. Requesting Physician: . Attending Physician: Jovana Malik MD Shannon is a pleasant 85-year-old female who fell on her right flexed knee about a month ago. She was on anticoagulants at the time and developed a large right kn ee hematoma. Everything was closed and was treated conservative. She spent some time at a rehab facility. She then began to develop a small ulceration where the hematoma was. Unfortunately ulceration grew in size. She had a cultured yesterday at her primary care physician's office and went to wound care today. The ulceration continue to grow and she is coming to the emergency room today for IV antibiotic treatment and possible surgical debridement. Orthopedics was consulted to evaluate and treat. Allergies Allergy/AdvReac Type Severity Reaction Status Date / Time simvastatin Allergy Unknown ELEVATED Verified 08/07/21 12:04 LIVER ENZYMES oxaprozin AdvReac Intermediate MAKES FEEL Verified 08/07/21 12:04 DEPRESSED Home Medications Medication Instructions Recorded Confirmed Type magnesium oxide 500 mg tablet 500 mg PO QAM 07/15/20 08/07/21 History pravastatin 80 mg tablet 80 mg PO QAM 07/15/20 08/07/21 History prednisolone acetate 1 % eye 1 drp OPB HS 07/15/20 08/07/21 History drops,suspension sodium di- and 2 tab PO TID 07/15/20 08/07/21 History monophosphate-potassium phos monobasic 250 mg tablet (Phospha 250 Neutral) solifenacin 5 mg tablet 5 mg PO QAM 07/15/20 08/07/21 History acetaminophen 500 mg tablet 1,000 mg PO BID PRN 06/13/21 08/07/21 History (Tylenol Extra Strength) amiodarone 200 mg tablet 200 mg PO QAM 06/13/21 08/07/21 History ascorbic acid (vitamin C) 500 mg 500 mg PO QAM 06/13/21 08/07/21 History tablet (Vitamin C) ferrous sulfate 325 mg (65 mg 325 mg PO Q OTHER DAY 06/13/21 08/07/21 History iron) tablet (iron) furosemide 20 mg tablet 20 mg PO DIRECTED PRN 06/13/21 08/07/21 History potassium chloride 20 mEq 10 meq PO TID 06/13/21 08/07/21 History tablet,extended release(part/cryst) fexofenadine 180 mg tablet 180 mg PO HS 07/06/21 08/07/21 History peg 400-propylene glycol (PF) 0.4 1 drp OPHTHALMIC (EYE) QID PRN 07/06/21 08/07/21 History %-0.3 % eye drops in a dropperette (Systane (PF)) metoprolol succinate 25 mg 12.5 mg PO QAM tab 08/07/21 08/07/21 History tablet,extended release 24 hr sulfamethoxazole 800 1 tab PO BID 08/07/21 08/07/21 History mg-trimethoprim 160 mg tablet (Bactrim DS) tramadol 50 mg tablet 50 mg PO Q6H PRN 08/07/21 08/07/21 History Past Med/Surg History Medical History Chronic diastolic CHF (congestive heart failure) GERD (gastroesophageal reflux disease) HLD (hyperlipidemia) HTN (hypertension) MGUS (monoclonal gammopathy of unknown significance) Paroxysmal atrial fibrillation Surgical History H/O: hysterectomy History of total knee arthroplasty S/P aortic valve replacement with bioprosthetic valve S/P repair of paraesophageal hernia Family History Other Cancer Diabetes Social History Smoking Status: Never smoker Second Hand Exposure: No; Hx Alcohol Use: Yes Alcohol type: hard liquor Hx Substance Use: No Preferred Language: Montenegrin Communication Ability: Effective Visual Impairment: Severely Limited Hearing Ability: Hard of Hearing Senior Quality Methods Specialist Required: No Beliefs That Will Affect Care: None marital status: / Current Living Situation: Family Current Living Situation Comment: lives with daughter Feels Safe at Home: Yes caffeine: Yes during the past year weight has: remained stable Assistive Devices: Walker Review of Systems All systems reviewed & are unremarkable except as noted in HPI & below. Physical Exam On examination the right knee, there is some cellulitis. There is about a 10 cm diameter open wound on the medial aspect of her right knee. Has a very foul smell. She has good range of motion of her knee without pain. She is able to ambulate without pain. Constitutional WD/WN, vitals as above Eyes PERRL, conjunctivae normal, anicteric sclerae ENMT external ear and nose normal, oropharynx normal Neck trachea midline, no thyromegaly Respiratory normal respiratory effort Cardiovascular RRR, no murmur, no edema Gastrointestinal (Abdomen) normal bowel sounds, soft, nontender, no hepatosplenomegaly Psychiatric A+Ox3, euthymic affect Results & Data Results & Data Laboratory Results . Diagnostic Findings MRI of the right knee was reviewed personally by myself. The wound appears to be superficial to the joint. There is an open wound and the hematoma and abscess extends medially and laterally around the knee joint. I do not see anything that communicates with the knee joint and there is certainly no signs of osteomyelitis. PG Care Time/CCT Total # of Minutes Spent Total Time Spent with Patient: Total time spent is greater than 50% in coordination of care (as documented) at patient's floor/unit and/or counseling patient: Coding Level of Care Code 66021 Inpt Consult Level 4 (57 - DECISION FOR SURGERY) Diagnoses Infected wound T14.8XXA; L08.9
[2021-08-07] MEDS: CEFEPIME 2,000 MG in SYRINGE 0 ML IV SCH (18:26)
--- NOTE | 2021-08-07 19:45 | Pharmacy Report ---
Pharmacy Vanc AUC Short Note - Date of Service August 07, 2021 - Assessment & Plan Assessment 85 year old F receiving IV Vancomycin and Cefepime (not a consult) for treatment of SST, possible bone. Day # 1 of antimicrobial therapy. * Patient received Vancomycin 1500mg (~19.5mg/kg) IV x 1 as a loading dose in the ED * sCr = 0.58 mg/dL with estimated CrCL ~69 mL/min; baseline sCr appears to be 0.8-0.9? Renal fx and Vancomycin pharmacokinetics unpredictable in elderly female patients Plan Vancomycin * AUC/BRENNAN is the preferred PK/PD target for vancomycin * AUC guided dosing is effective and associated with decreased risk of nephrotoxicity compared to traditional trough targets * According to [facility], Vancomycin 1000mg (~13mg/kg) IV q12 is predicted to achieve target AUC/BRENNAN of 400-600 mg/L.hr and may be associated with a 14 % risk of nephrotoxicity * Trough level ordered for: 08/09/21 @ 0930 Pharmacy will continue to follow and will adjust dose/frequency as necessary. Thank you.
[2021-08-07] MEDS: VANCOMYCIN HCL 1,000 MG in SODIUM CHLORIDE 0.9% 250 ML IV SCH (21:45)
[2021-08-07] MEDS: POT PHOSPHATE MONOBASIC W/ SOD TAB PO SCH (21:45)
[2021-08-07] MEDS: FEXOFENADINE HCL 180 MG TAB PO SCH (21:46)
[2021-08-07] MEDS: prednisoLONE acetate 1% OP SUSP 5 ML BTL OP SCH (21:47)
[2021-08-07] MEDS: POTASSIUM CHLORIDE 10 MEQ TABCR PO SCH (21:47)
[2021-08-07] MEDS: HEPARIN SOD 5,000 UNIT/0.5 ML VIAL SQ SCH (23:10)
[2021-08-08] MEDS: CEFEPIME 2,000 MG in SYRINGE 0 ML IV SCH ×2 (06:23→17:42)
[2021-08-08] MEDS ORDERED: PROMETHAZINE HCL 12.5 MG in SODIUM CHLORIDE 0.9% 50 ML IV PRN (07:16)
[2021-08-08] MEDS ORDERED: NALOXONE HCL 0.4 MG/1 ML VIAL/CARP IV PRN (07:16)
[2021-08-08] MEDS ORDERED: ATROPINE SULFATE 0.1 MG/ML 10ML SYR IV PRN (07:16)
[2021-08-08] MEDS ORDERED: FLUMAZENIL 0.1 MG/1 ML 10 ML VIAL IV PRN (07:16)
[2021-08-08] MEDS ORDERED: LABETALOL HCL IV 5 MG/ML 20ML IV PRN (07:16)
[2021-08-08] MEDS ORDERED: ONDANSETRON INJ 2 MG/ML 2 ML VIAL IV PRN (07:16)
[2021-08-08] MEDS ORDERED: HYDROmorphone INJ 1 MG/ML SYRINGE IV PRN (07:16)
[2021-08-08] MEDS ORDERED: ePHEDrine sulfate 50 MG/ML AMP IV PRN (07:16)
[2021-08-08] MEDS ORDERED: PROPOFOL IV EMULSION 10 MG/ML 20 ML VIAL IV ONE (07:22)
[2021-08-08] MEDS ORDERED: fentaNYL citrate 100 MCG/2 ML VIAL ONE (07:23)
--- NOTE | 2021-08-08 07:27 | History & Physical Bridge Note ---
Date of Service August 08, 2021 History & Physical Bridge Note I have examined the patient, reviewed the History & Physical and in the interval since the performance of the History & Physical I have noted the following changes of clinical significance: no changes noted
[2021-08-08 07:34] LABS: Hematocrit (blood only) 32.7 % (37-47); Hemoglobin 10.4 g/dL (12.0-16.0); Mean Corpuscular Hemoglobin 31.2 pg (25-34); Mean Corpuscular Hgb Conc 31.8 g/dL (32-36); Mean Corpuscular Volume 98.2 fL (80-100); Mean Platelet Volume 9.4 fL (7.4-10.4); Platelet Count 128 K/uL (130-400); RDW Coefficient of Variation 18.2 % (11.5-14.5); Red Blood Count 3.33 M/uL (4.2-5.4); White Blood Count 4.94 K/uL (4.8-10.8)
[2021-08-08 08:12] LABS: BUN Creatinine Ratio 13.6 (10-20); Calcium 7.7 mg/dl (8.5-10.1); Creatinine Clr Calc Pharmacy 59.1 ml/min; Est GFR (African American) 94.7 ml/min; Est GFR (Non-African American) 81.7 ml/min; Potassium 4.2 mmol/L (3.5-5.1)
[2021-08-08] MEDS: fentaNYL citrate 100 MCG/2 ML VIAL IV PRN ×2 (08:39→08:44)
--- NOTE | 2021-08-08 09:09 | Operative Report ---
PG Post Operative Report Pre & Post Diagnosis Operation Date: 08/08/21 07:30 Pre-Op Diagnosis: Infected Right Knee Wound Post-Op Diagnosis: Infected Right Knee Wound I identified the patient and participated in the time-out.: Yes Procedure Operation Date: 08/08/21 07:30 Actual Procedures p Incision and Drainage of Right Knee Wound with Application of Wound Vac(Right) - Juan Pablo Barrow DO Surgeon Juan Pablo Barrow, Director Of Strategy & Mobile Sorin Bauer PAC Estimated Blood Loss 20 Findings Consistent with Post-Op Diagnosis Specimens two culture swabs Complications none Disposition Disposition: Recovery Room Indications Shannon is a pleasant 85-year-old female who sustained a hematoma on her right knee when she fell a month ago. The hematoma was taken a while to subside. She then developed an ulceration and a large wound opened up on her right knee. It became grossly infected. She came to the hospital. She was then taken to the operating room for irrigation debridement and application of a wound VAC. Description of Procedure On August 08, 2021 Shannon was brought down from her hospital room to the preoperative holding area. The operative extremity identified and signed. She was taken back to the operating room and laid on the table in supine position. She was put under general anesthesia. The right knee was then prepped and draped in sterile fashion. A timeout was done. The patient and the operative e xtremity was properly identified. There was a large open wound on the medial aspect of the knee that measured about 10 cm in diameter. Infected hematoma was pushed out over the wound. The more purulent areas were cultured. 2 cultures were taken. Once I evacuated the hematoma there was a large cavity laterally and a smaller cavity medially. The wound was then irrigated with about 2 L of normal saline solution with pulse lavage. The wound bed was then debrided with a sharp knife. Meticulous care was taken to ensure I debrided the entire floor of the lesion without penetrating the knee joint. After complete debridement the knee was brought through a full range of motion and I did not see or feel any communication with the knee joint itself. The surrounding edges of the circular wounds were then debrided with a sharp knife. Once the debridement was complete an additional 4 L of normal saline solution with pulse lavage was run through the wound. I was able to get good bleeding tissue throughout. A silver wound VAC was then placed. She was then extubated and transferred to a hospital bed. She was taken to the postanesthesia care unit in stable condition. She tolerated the procedure well. Sorin Bauer PA-C, was present for the entire procedure. He was critical for patient positioning, prepping, draping, retraction exposure, wound closure and application of sterile dressing. I attest to the content of the Intraoperative Record and any orders documented therein. Any exceptions are noted below.
--- NOTE | 2021-08-08 10:10 | Anesthesiology Progress Note ---
Date of Service August 08, 2021 Anesthesia Post Procedure Vital Signs Vital Signs: Temp Pulse Pulse Pulse Resp BP BP 08/08/21 09:18 36.5 C 63 18 136/61 08/08/21 09:00 68 19 128/54 L 08/08/21 08:50 68 19 132/56 L 08/08/21 08:40 70 18 133/57 L 08/08/21 08:32 36.4 C L 76 18 129/56 L 08/08/21 03:06 36.8 C 62 18 141/68 H 08/07/21 23:31 36.7 C 64 18 155/73 H 08/07/21 22:40 57 L 08/07/21 19:45 36.6 C 53 L 18 144/66 H 08/07/21 18:18 36.5 C 54 L 18 159/78 H 08/07/21 17:05 08/07/21 14:00 60 24 08/07/21 11:18 36.6 C 62 16 178/97 H BP Pulse Ox Pulse Ox 08/08/21 09:18 96 08/08/21 09:00 96 08/08/21 08:50 96 08/08/21 08:40 100 08/08/21 08:32 100 08/08/21 03:06 94 08/07/21 23:31 94 08/07/21 22:40 08/07/21 19:45 91 08/07/21 18:18 100 08/07/21 17:05 100 08/07/21 14:00 155/60 H 99 08/07/21 11:18 97 Pain Intensity Neck: Pain Intensity: 4 Transfer of Care Handoff Completed per policy Notes Mental Status: alert / awake / arousable Patient Amnestic to Procedure: Yes Nausea / Vomiting: adequately controlled Pain: adequately controlled Airway Patency, RR, SpO2: stable & adequate BP & HR: stable & adequate Hydration State: stable & adequate Anesthetic Complications: no major complications apparent
[2021-08-08] MEDS: VANCOMYCIN HCL 1,000 MG in SODIUM CHLORIDE 0.9% 250 ML IV SCH ×2 (10:33→21:01)
[2021-08-08] MEDS: FERROUS SULFATE 325 MG TAB PO SCH (10:34)
[2021-08-08] MEDS: MAGNESIUM OXIDE 400 MG TAB PO SCH (10:34)
[2021-08-08] MEDS: AMIODARONE 200 MG TAB PO SCH (10:34)
[2021-08-08] MEDS: METOPROLOL SUCC 25MG EXT REL TAB PO SCH (10:34)
[2021-08-08] MEDS: PRAVASTATIN SOD 40 MG TAB PO SCH (10:35)
[2021-08-08] MEDS: POT PHOSPHATE MONOBASIC W/ SOD TAB PO SCH ×3 (10:35→21:03)
[2021-08-08] MEDS: POTASSIUM CHLORIDE 10 MEQ TABCR PO SCH ×3 (10:36→21:03)
[2021-08-08] MEDS: HEPARIN SOD 5,000 UNIT/0.5 ML VIAL SQ SCH ×2 (10:36→21:02)
[2021-08-08] MEDS ORDERED: COUGH DROP (SUGAR FREE) LOZ 24 LOZ/1 BOX BUCCAL ONE (13:30)
--- NOTE | 2021-08-08 16:15 | Hospitalist Progress Note ---
Date of Service August 08, 2021 Assessment & Plan (1) Infected wound: Plan: Patient with history fall resulting in large right knee hematoma on 07/06/2021. During hospital admission ortho had attempted aspiration aspiration however no significant fluid removed. Bactrim started outpatient on 08/06/21 by PCP for right knee wound and cellulitis 08/06/2021 outpatient Preliminary wound culture: Many oxidase positive nonlactose forming gram-negative bacilli Wound nurse consult Ortho consult-appreciate input and recommendation Status post incision and drainage's of the right knee wound with placement of wound VAC (2) Cellulitis of leg, right: Plan: In ER vitals stable,afebrile. No leukocytosis. Lactate WNL, procalcitonin: 0.23. CRP and ESR elevated Right Knee Xray: No acute osseous pathology. Interval development of a large soft tissue ulceration along the medial aspect of the knee with air present. No extension into the joint is demonstrated radiographically. Blood cultures pending In ER given Rocephin, vancomycin Wound culture-is growing gram-negative bacilli and final sensitivities pending Start cefepime, vancomycin MRI knee r/o osteomyelitis-did not show any osteomyelitis (3) Fall: Plan: Fall today in bathroom at wound clinic. Patient felt herself falling to left and fell to the floor. Does not think had syncope or hit head CT Head:No acute findings CT C-spine: no evidence of fracture or subluxation involving the cervical spine Tele to monitor for arrhythmia Fall precautions Will need PT eval after seen by ortho and prior to discharge (4) Paroxysmal atrial fibrillation: Plan: No longer on anticoagulation Continue amiodarone, metoprolol succinate (5) Chronic diastolic CHF (congestive heart failure): Plan: CXR: Cardiomegaly with interstitial thickening suggestive of mild pulmonary edema Clinically patient appears euvolemic At home is on Lasix as needed. Monitor I's and O's, volume status low-salt No signs and/or symptoms of fluid overload and/or CHF (6) Anemia: (7) Thrombocytopenia: Plan: Chronic anemia, chronic thrombocytopenia Hgb: 10.8. Baseline~11. Patient with history of acute on chronic anemia 1 month ago secondary to right knee hematoma and required 2 units PRBC PLT: 143. Baseline in low 100's DVT Prophylaxis Heparin SQ Full Code as per discussion with pt Follows with Dr Reis for routine care Admission and Anticipated Discharge Date Admission Date: August 07, 2021 Subjective 08/08/2021 The patient was seen and examined in telemetry unit She complains to have minimal pain in the right knee and is status post I&D Denies any chest pain and/or palpitation or shortness of breath Review of Systems Review of Systems: All systems reviewed and are unremarkable except as noted below Musculoskeletal: Right knee pain Physical Exam Physical Exam: Lying in bed comfortably Constitutional: + ill appearing and average body habitus Eyes: PERRL, conjunctivae normal, anicteric sclerae ENMT: external ear and nose normal, oropharynx normal Neck: trachea midline, no thyromegaly Respiratory: no respiratory distress Auscultation: + diminished lung sounds and + crackles (Minimal crackles at the bases) Cardiovascular: Rate/Rhythm: regular rate and regular rhythm; not tachycardic Heart Sounds: normal S1 and normal S2; no murmur Extremities: + edema (Trace edema bilaterally) Gastrointestinal (Abdomen): Inspection/Auscultation: normal bowel sounds; abdomen not distended Percussion/Palpation: abdomen soft; abdomen nontender Musculoskeletal: Knee: + knee abnormal to inspection (Status post I&D of the right knee wound and placement of wound VAC ) No acute arthritis and the right knee is not examined Neurologic: Alert, awake and oriented x3. Generally weak but no focal neurodeficit Psychiatric: A+Ox3, euthymic affect Lymphatic: no cervical or axillary lymphadenopathy Results & Data Results & Data ([facility]) Vital Signs (Past 12 Hours) Vital Signs Temp Pulse Resp BP Pulse Ox 08/08/21 15:26 36.6 C 63 18 101/53 L 95 08/08/21 14:35 64 18 125/65 97 08/08/21 13:50 62 18 108/59 L 08/08/21 12:50 64 18 114/56 L 08/08/21 11:50 36.5 C 62 18 102/51 L 94 08/08/21 11:13 36.6 C 66 18 118/68 99 08/08/21 10:43 68 18 113/68 08/08/21 10:33 66 18 109/50 L 08/08/21 09:48 36.5 C 71 18 130/58 L 08/08/21 09:33 36.5 C 65 18 130/58 L 96 08/08/21 09:18 36.5 C 63 18 136/61 96 08/08/21 09:00 68 19 128/54 L 96 08/08/21 08:50 68 19 132/56 L 96 08/08/21 08:40 70 18 133/57 L 100 08/08/21 08:32 36.4 C L 76 18 129/56 L 100 Laboratory Results Short CBC 08/08/21 Range/Units 06:34 WBC 4.94 (4.8-10.8) K/uL Hgb 10.4 L (12.0-16.0) g/dL Hct 32.7 L (37-47) % Plt Count 128 L (130-400) K/uL BMP 08/08/21 06:34 Sodium 132 L Potassium 4.2 Chloride 105 Carbon Dioxide 21 BUN 9 Creatinine 0.66 Glucose 74 Calcium 7.7 L Medications Administered Current Inpatient Medications Acetaminophen (Acetaminophen 325 Mg Tab) 650 mg PO Q4H PRN PRN Reason: Pain or Fever Stop: 09/06/21 17:04 Amiodarone HCl (Amiodarone 200 Mg Tab) 200 mg PO QAM [facility] Stop: 09/07/21 08:59 Last Admin: 08/08/21 10:34 Dose: 200 mg Documented by: Artificial Tears (Artificial Tears) 1 drops OP QID PRN PRN Reason: Dry Eye(S) Stop: 09/06/21 17:13 Ferrous Sulfate (Ferrous Sulfate 325 Mg Tab) 325 mg PO Q2D@0900 [facility] Stop: 09/07/21 08:59 Last Admin: 08/08/21 10:34 Dose: 325 mg Documented by: Fexofenadine HCl (Fexofenadine Hcl 180 Mg Tab) 180 mg PO HS [facility] Stop: 09/06/21 20:59 Last Admin: 08/07/21 21:46 Dose: 180 mg Documented by: Heparin Sodium (Porcine) (Heparin Sod 5,000 Unit/0.5 Ml Vial) 5,000 units SQ Q12 [facility] Stop: 09/06/21 20:59 Last Admin: 08/08/21 10:36 Dose: 5,000 units Documented by: Cefepime HCl 2,000 mg/ Syringe 20 mls @ 5 mls/min IV Q12H [facility]; Protocol Stop: 08/14/21 17:59 Last Admin: 08/08/21 06:23 Dose: 5 mls/min Documented by: Vancomycin HCl 1,000 mg/ (Sodium Chloride) 270 mls @ 200 mls/hr IV Q12H [facility] Stop: 08/14/21 21:59 Last Infusion: 08/08/21 12:13 Dose: Infused Documented by: Magnesium Oxide (Magnesium Oxide 400 Mg Tab) [facility] [place] Stop: 09/07/21 08:59 Last Admin: 08/08/21 10:34 Dose: 400 mg Documented by: Metoprolol Succinate (Metoprolol Succ 25mg Ext Rel Tab) 12.5 mg [facility] [place] Stop: 09/07/21 08:59 Last Admin: 08/08/21 10:34 Dose: 12.5 mg Documented by: Miscellaneous (Vesicare 5mg: Order Awaiting Action) 1 ea N/A QS [facility] Stop: 09/07/21 07:59 Last Admin: 08/08/21 16:05 Dose: Not Given Documented by: Miscellaneous Information (Vancomycin Consult Active) 1 ea N/A UD PRN PRN Reason: Consult Stop: 09/06/21 11:28 Ondansetron HCl (Ondansetron Inj 2 Mg/Ml 2 Ml Vial) 4 mg IV Q6H PRN PRN Reason: Nausea Stop: 09/06/21 17:04 Polyethylene Glycol (Polyethylene (Miralax) 17 Gm Pack) 17 gm PO DAILY PRN PRN Reason: Constipation Stop: 09/06/21 17:04 Potassium Chloride (Potassium Chloride 10 Meq Tabcr) 10 meq PO TID [facility] Stop: 09/06/21 20:59 Last Admin: 08/08/21 13:37 Dose: 10 meq Documented by: Potassium Phosphate (Pot Phosphate Monobasic W/ Sod Tab) 2 tab PO TID [facility] Stop: 09/06/21 20:59 Last Admin: 08/08/21 13:37 Dose: 2 tab Documented by: Pravastatin Sodium (Pravastatin Sod 40 Mg Tab) 80 mg PO QAM [facility] Stop: 09/07/21 08:59 Last Admin: 08/08/21 10:35 Dose: 80 mg Documented by: Prednisolone Acetate (Prednisolone Acetate 1% Op Susp 5 Ml Btl) 1 drops OP HS [facility] Stop: 09/06/21 20:59 Last Admin: 08/07/21 21:47 Dose: 1 drops Documented by: Tramadol HCl (Tramadol Hcl 50 Mg Tablet) 50 mg PO Q6H PRN PRN Reason: Pain Stop: 09/06/21 17:04 Last Admin: 08/08/21 15:49 Dose: 50 mg Documented by: (1) Fall Encounter type: initial encounter Qualified Code(s): W19.XXXA - Unspecified fall, initial encounter
[2021-08-08] MEDS: prednisoLONE acetate 1% OP SUSP 5 ML BTL OP SCH (21:01)
[2021-08-08] MEDS: FEXOFENADINE HCL 180 MG TAB PO SCH (21:03)
[2021-08-09] MEDS: CEFEPIME 2,000 MG in SYRINGE 0 ML IV SCH ×2 (05:40→18:07)
[2021-08-09 07:26] LABS: Basophils # (auto) 0.02 K/uL (0-0.2); Basophils % (auto) 0.4 %; Eosinophils # (auto) 0.16 K/uL (0-0.5); Eosinophils % (auto) 3.5 %; Hematocrit (blood only) 28.4 % (37-47); Hemoglobin 9.1 g/dL (12.0-16.0); Immature Granulocytes # (auto) 0.01 K/uL (0.00-0.02); Immature Granulocytes % (auto) 0.2 %; Lymphocytes # (auto) 0.94 K/uL (1.2-3.4); Lymphocytes % (auto) 20.4 %; Mean Platelet Volume 9.5 fL (7.4-10.4); Monocytes # (auto) 0.88 K/uL (0.11-0.59); Monocytes % (auto) 19.1 %; Neutrophils % (auto) 56.4 %; Platelet Count 128 K/uL (130-400); RDW Coefficient of Variation 18.1 % (11.5-14.5); RDW Standard Deviation 66.7 fL (36.4-46.3); Red Blood Count 2.84 M/uL (4.2-5.4); White Blood Count 4.61 K/uL (4.8-10.8)
[2021-08-09 07:55] LABS: Calcium 7.4 mg/dl (8.5-10.1); Creatinine Clr Calc Pharmacy 61.5 ml/min; Est GFR (African American) 96.1 ml/min; Est GFR (Non-African American) 82.9 ml/min; Potassium 4.2 mmol/L (3.5-5.1)
[2021-08-09] MEDS: MAGNESIUM OXIDE 400 MG TAB PO SCH (07:55)
[2021-08-09] MEDS: AMIODARONE 200 MG TAB PO SCH (07:55)
[2021-08-09] MEDS: METOPROLOL SUCC 25MG EXT REL TAB PO SCH (07:55)
[2021-08-09] MEDS: POT PHOSPHATE MONOBASIC W/ SOD TAB PO SCH ×3 (07:56→20:00)
[2021-08-09] MEDS: PRAVASTATIN SOD 40 MG TAB PO SCH (07:56)
[2021-08-09] MEDS: POTASSIUM CHLORIDE 10 MEQ TABCR PO SCH ×3 (07:56→20:05)
[2021-08-09] MEDS: SOLIFENACIN SUCCINATE 5 MG PO SCH (07:57)
[2021-08-09] MEDS: HEPARIN SOD 5,000 UNIT/0.5 ML VIAL SQ SCH ×2 (07:58→20:00)
[2021-08-09] MEDS ORDERED: VANCOMYCIN TROUGH ONE (09:30)
--- NOTE | 2021-08-09 11:24 | Orthopedic Progress Note ---
Date of Service August 09, 2021 Assessment & Plan (1) Infected wound: Overall she is doing fairly well. Initial cultures have grown gram- negative bacilli. The hospitalist has her on cefepime for antibiotic coverage. She can be weightbearing as tolerated. She will need her VAC changed every 2 to 3 days by the VAC nurse. She should continue to follow-up with wound care upon discharge. Subjective Shannon was seen and examined at bedside today. Overall she is doing fairly well. She denies any too much pain at the right knee. She has been up and ambulating to the bathroom. She has no complaints. Review of Systems All systems reviewed & are unremarkable except as noted in HPI & below. Physical Exam On physical examination of the right knee, the wound VAC is to suction. She still some redness in the area. She has active dorsiflexion plantarflexion of her right ankle. Results & Data Results & Data Laboratory Results . Diagnostic Findings . PG Care Time/CCT Total # of Minutes Spent Total Time Spent with Patient: Total time spent is greater than 50% in coordination of care (as documented) at patient's floor/unit and/or counseling patient: Coding Level of Care Code 44474 Post Operative Follow-Up Diagnoses Infected wound T14.8XXA; L08.9
--- NOTE | 2021-08-09 14:23 | Hospitalist Progress Note ---
Date of Service August 09, 2021 Assessment & Plan (1) Infected wound: Plan: Patient with history fall resulting in large right knee hematoma on 07/06/2021. During hospital admission ortho had attempted aspiration aspiration however no significant fluid removed. Bactrim started outpatient on 08/06/21 by PCP for right knee wound and cellulitis 08/06/2021 outpatient Preliminary wound culture: Many oxidase positive nonlactose forming gram-negative bacilli Wound nurse consult Ortho consult-appreciate input and recommendation Status post incision and drainage's of the right knee wound with placement of wound VAC Right knee remains swelled with adjoining redness and skin discoloration. Wound VAC is in place (2) Cellulitis of leg, right: Plan: In ER vitals stable,afebrile. No leukocytosis. Lactate WNL, procalcitonin: 0.23. CRP and ESR elevated Right Knee Xray: No acute osseous pathology. Interval development of a large soft tissue ulceration along the medial aspect of the knee with air present. No extension into the joint is demonstrated radiographically. Blood cultures pending In ER given Rocephin, vancomycin Wound culture-is growing gram-negative bacilli and final sensitivities pending Start cefepime, vancomycin MRI knee r/o osteomyelitis-did not show any osteomyelitis But wound culture grew E. coli and Pseudomonas which are sensitive to intravenous cefepime-we will continue current antibiotic (3) Fall: Plan: Fall today in bathroom at wound clinic. Patient felt herself falling to left and fell to the floor. Does not think had syncope or hit head CT Head:No acute findings CT C-spine: no evidence of fracture or subluxation involving the cervical spine Tele to monitor for arrhythmia Fall precautions Will need PT eval after seen by ortho and prior to discharge (4) Paroxysmal atrial fibrillation: Plan: No longer on anticoagulation Continue amiodarone, metoprolol succinate (5) Chronic diastolic CHF (congestive heart failure): Plan: CXR: Cardiomegaly with interstitial thickening suggestive of mild pulmonary edema Clinically patient appears euvolemic At home is on Lasix as needed. Monitor I's and O's, volume status low-salt No signs and/or symptoms of fluid overload and/or CHF (6) Anemia: (7) Thrombocytopenia: Plan: Chronic anemia, chronic thrombocytopenia Hgb: 10.8. Baseline~11. Patient with history of acute on chronic anemia 1 month ago secondary to right knee hematoma and required 2 units PRBC PLT: 143. Baseline in low 100's DVT Prophylaxis Heparin SQ Full Code as per discussion with pt Follows with Dr Reis for routine care Admission and Anticipated Discharge Date Admission Date: August 07, 2021 Subjective 08/08/2021 The patient was seen and examined in telemetry unit She complains to have minimal pain in the right knee and is status post I&D Denies any chest pain and/or palpitation or shortness of breath 08/09/2021 The patient was seen and examined in medical telemetry unit She has been feeling much better Complains pain in the right knee but not any worse Review of Systems Review of Systems: All systems reviewed and are unremarkable except as noted below Musculoskeletal: Right knee pain with movement Physical Exam Physical Exam: Lying in bed comfortably Constitutional: + ill appearing and average body habitus Eyes: PERRL, conjunctivae normal, anicteric sclerae ENMT: external ear and nose normal, oropharynx normal Neck: trachea midline, no thyromegaly Respiratory: no respiratory distress Auscultation: + diminished lung sounds and + crackles (Minimal crackles at the bases) Cardiovascular: Rate/Rhythm: regular rate and regular rhythm; not tachycardic Heart Sounds: normal S1 and normal S2; no murmur Extremities: + edema (Trace edema bilaterally) Gastrointestinal (Abdomen): Inspection/Auscultation: normal bowel sounds; abdomen not distended Percussion/Palpation: abdomen soft; abdomen nontender Musculoskeletal: Knee: + knee abnormal to inspection (Status post I&D of the right knee wound and placement of wound VAC ) Skin: Erythema and redness involving the right knee with moderate swelling Psychiatric: A+Ox3, euthymic affect Lymphatic: no cervical or axillary lymphadenopathy Results & Data Results & Data ([facility]) Vital Signs (Past 12 Hours) Vital Signs Temp Pulse Pulse Resp BP Pulse Ox 08/09/21 11:16 36.4 C L 64 18 117/68 96 08/09/21 07:48 64 08/09/21 07:40 36.9 C 56 L 18 121/66 92 08/09/21 04:00 36.8 C 55 L 18 118/57 L 93 Laboratory Results Short CBC 08/09/21 Range/Units 07:01 WBC 4.61 L (4.8-10.8) K/uL Hgb 9.1 L (12.0-16.0) g/dL Hct 28.4 L (37-47) % Plt Count 128 L (130-400) K/uL BMP 08/09/21 07:01 Sodium 132 L Potassium 4.2 Chloride 105 Carbon Dioxide 22 BUN 12 Creatinine 0.63 Glucose 76 Calcium 7.4 L Medications Administered Current Inpatient Medications Acetaminophen (Acetaminophen 325 Mg Tab) 650 mg PO Q4H PRN PRN Reason: Pain or Fever Stop: 09/06/21 17:04 Amiodarone HCl (Amiodarone 200 Mg Tab) [facility] [place] Stop: 09/07/21 08:59 Last Admin: 08/09/21 07:55 Dose: 200 mg Documented by: Artificial Tears (Artificial Tears) 1 drops OP QID PRN PRN Reason: Dry Eye(S) Stop: 09/06/21 17:13 Ferrous Sulfate (Ferrous Sulfate 325 Mg Tab) 325 mg PO Q2D@0900 [facility] Stop: 09/07/21 08:59 Last Admin: 08/08/21 10:34 Dose: 325 mg Documented by: Fexofenadine HCl (Fexofenadine Hcl 180 Mg Tab) 180 mg PO HS [facility] Stop: 09/06/21 20:59 Last Admin: 08/08/21 21:03 Dose: 180 mg Documented by: Heparin Sodium (Porcine) (Heparin Sod 5,000 Unit/0.5 Ml Vial) 5,000 units SQ Q12 [facility] Stop: 09/06/21 20:59 Last Admin: 08/09/21 07:58 Dose: 5,000 units Documented by: Cefepime HCl 2,000 mg/ Syringe 20 mls @ 5 mls/min IV Q12H [facility]; Protocol Stop: 08/14/21 17:59 Last Admin: 08/09/21 05:40 Dose: 5 mls/min Documented by: Magnesium Oxide (Magnesium Oxide 400 Mg Tab) 400 [facility] [place] Stop: 09/07/21 08:59 Last Admin: 08/09/21 07:55 Dose: 400 mg Documented by: Metoprolol Succinate (Metoprolol Succ 25mg Ext Rel Tab) 12.5 mg [facility] [place] Stop: 09/07/21 08:59 Last Admin: 08/09/21 07:55 Dose: 12.5 mg Documented by: Ondansetron HCl (Ondansetron Inj 2 Mg/Ml 2 Ml Vial) 4 mg IV Q6H PRN PRN Reason: Nausea Stop: 09/06/21 17:04 Polyethylene Glycol (Polyethylene (Miralax) 17 Gm Pack) 17 gm PO DAILY PRN PRN Reason: Constipation Stop: 09/06/21 17:04 Potassium Chloride (Potassium Chloride 10 Meq Tabcr) 10 meq PO TID [facility] Stop: 09/06/21 20:59 Last Admin: 08/09/21 14:06 Dose: 10 meq Documented by: Potassium Phosphate (Pot Phosphate Monobasic W/ Sod Tab) 2 tab PO TID [facility] Stop: 09/06/21 20:59 Last Admin: 08/09/21 14:06 Dose: 2 tab Documented by: Pravastatin Sodium (Pravastatin Sod 40 Mg Tab) 80 mg PO QAM [facility] Stop: 09/07/21 08:59 Last Admin: 08/09/21 07:56 Dose: 80 mg Documented by: Prednisolone Acetate (Prednisolone Acetate 1% Op Susp 5 Ml Btl) 1 drops OP HS [facility] Stop: 09/06/21 20:59 Last Admin: 08/08/21 21:01 Dose: 1 drops Documented by: Solifenacin (Pt's Own Med - Solifenacin Succinate 5mg) 1 ea PO DAILY [facility] Stop: 09/08/21 08:59 Last Admin: 08/09/21 07:57 Dose: 1 ea Documented by: Tramadol HCl (Tramadol Hcl 50 Mg Tablet) 50 mg PO Q6H PRN PRN Reason: Pain Stop: 09/06/21 17:04 Last Admin: 08/08/21 15:49 Dose: 50 mg Documented by: (1) Fall Encounter type: initial encounter Qualified Code(s): W19.XXXA - Unspecified fall, initial encounter
[2021-08-09] MEDS: ACETAMINOPHEN 325 MG TAB PO PRN (18:36)
[2021-08-09] MEDS: FEXOFENADINE HCL 180 MG TAB PO SCH (20:00)
[2021-08-09] MEDS: prednisoLONE acetate 1% OP SUSP 5 ML BTL OP SCH (20:01)
[2021-08-10] MEDS: CEFEPIME 2,000 MG in SYRINGE 0 ML IV SCH ×2 (06:45→18:01)
[2021-08-10] MEDS: AMIODARONE 200 MG TAB PO SCH (07:50)
[2021-08-10] MEDS: FERROUS SULFATE 325 MG TAB PO SCH (07:50)
[2021-08-10] MEDS: HEPARIN SOD 5,000 UNIT/0.5 ML VIAL SQ SCH ×2 (07:50→20:10)
[2021-08-10] MEDS: POT PHOSPHATE MONOBASIC W/ SOD TAB PO SCH ×3 (07:51→20:11)
[2021-08-10] MEDS: PRAVASTATIN SOD 40 MG TAB PO SCH (07:51)
[2021-08-10] MEDS: METOPROLOL SUCC 25MG EXT REL TAB PO SCH (07:51)
[2021-08-10] MEDS: MAGNESIUM OXIDE 400 MG TAB PO SCH (07:51)
[2021-08-10] MEDS: SOLIFENACIN SUCCINATE 5 MG PO SCH (07:52)
--- NOTE | 2021-08-10 09:38 | Orthopedic Progress Note ---
Date of Service August 10, 2021 Assessment & Plan (1) Infected wound: The wound cultures are growing out Pseudomonas and E. coli. She is on cefepime for antibiotics. I talked to the wound VAC nurse and they will change her wound VAC today. She is orthopedically stable for discharge when medically ready. This wound will likely require several months of VAC changes. The VAC changes can be done at wound care. I do not foresee any further surgical intervention be necessary. She does not need to follow-up with me in the office unless her symptoms significantly worsen. I spoke with her family by phone today. Keanu Ortega was seen and examined at bedside this morning. Overall she is doing fairly well. She is having much pain in the right knee. She had no acute events yesterday. She is tolerating the antibiotics. She has no complaints. Review of Systems All systems reviewed & are unremarkable except as noted in HPI & below. Physical Exam On physical examination of the right knee, she does not have much pain within the knee joint. She has some redness around the knee which is unchanged from yesterday. The wound VAC is to suction. Results & Data Results & Data Laboratory Results . Diagnostic Findings . PG Care Time/CCT Total # of Minutes Spent Total Time Spent with Patient: Total time spent is greater than 50% in coordination of care (as documented) at patient's floor/unit and/or counseling patient: Coding Level of Care Code 03805 Post Operative Follow-Up Diagnoses Infected wound T14.8XXA; L08.9
[2021-08-10 10:37] LABS: Basophils # (auto) 0.02 K/uL (0-0.2); Basophils % (auto) 0.4 %; Eosinophils # (auto) 0.14 K/uL (0-0.5); Hematocrit (blood only) 30.5 % (37-47); Hemoglobin 9.7 g/dL (12.0-16.0); Immature Granulocytes # (auto) 0.01 K/uL (0.00-0.02); Immature Granulocytes % (auto) 0.2 %; Lymphocytes # (auto) 0.75 K/uL (1.2-3.4); Lymphocytes % (auto) 16.3 %; Mean Corpuscular Hemoglobin 31.5 pg (25-34); Mean Corpuscular Hgb Conc 31.8 g/dL (32-36); Mean Platelet Volume 9.5 fL (7.4-10.4); Monocytes # (auto) 0.65 K/uL (0.11-0.59); Monocytes % (auto) 14.1 %; Neutrophils # (auto) 3.04 K/uL (1.4-6.5); Platelet Count 156 K/uL (130-400); RDW Coefficient of Variation 18.4 % (11.5-14.5); RDW Standard Deviation 66.1 fL (36.4-46.3); Red Blood Count 3.08 M/uL (4.2-5.4); White Blood Count 4.61 K/uL (4.8-10.8)
[2021-08-10] MEDS: ACETAMINOPHEN 325 MG TAB PO PRN ×2 (11:04→20:09)
[2021-08-10] MEDS: POTASSIUM CHLORIDE 10 MEQ TABCR PO SCH ×3 (11:04→20:15)
[2021-08-10 12:10] LABS: BUN Creatinine Ratio 21.4 (10-20); Calcium 7.7 mg/dl (8.5-10.1); Creatinine Clr Calc Pharmacy 68.1 ml/min; Est GFR (African American) 99.9 ml/min; Est GFR (Non-African American) 86.2 ml/min; Potassium 4.3 mmol/L (3.5-5.1)
--- NOTE | 2021-08-10 16:15 | Hospitalist Progress Note ---
Date of Service August 10, 2021 Assessment & Plan (1) Infected wound: Plan: Patient with history fall resulting in large right knee hematoma on 07/06/2021. During hospital admission ortho had attempted aspiration aspiration however no significant fluid removed. Bactrim started outpatient on 08/06/21 by PCP for right knee wound and cellulitis 08/06/2021 outpatient Preliminary wound culture: Many oxidase positive nonlactose forming gram-negative bacilli Wound nurse consult Ortho consult-appreciate input and recommendation Status post incision and drainage's of the right knee wound with placement of wound VAC Right knee remains swelled with adjoining redness and skin discoloration. Wound VAC is in place Right knee is showing much improvement with the wound VAC with less swelling and less redness and tenderness (2) Cellulitis of leg, right: Plan: In ER vitals stable,afebrile. No leukocytosis. Lactate WNL, procalcitonin: 0.23. CRP and ESR elevated Right Knee Xray: No acute osseous pathology. Interval development of a large soft tissue ulceration along the medial aspect of the knee with air present. No extension into the joint is demonstrated radiographically. Blood cultures pending In ER given Rocephin, vancomycin Wound culture-is growing gram-negative bacilli and final sensitivities pending Start cefepime, vancomycin MRI knee r/o osteomyelitis-did not show any osteomyelitis But wound culture grew E. coli and Pseudomonas which are sensitive to intravenous cefepime-we will continue current antibiotic Infectious seems to be under control with intravenous cefepime (3) Fall: Plan: Fall today in bathroom at wound clinic. Patient felt herself falling to left and fell to the floor. Does not think had syncope or hit head CT Head:No acute findings CT C-spine: no evidence of fracture or subluxation involving the cervical spine Tele to monitor for arrhythmia Fall precautions Will need PT eval after seen by ortho and prior to discharge (4) Paroxysmal atrial fibrillation: Plan: No longer on anticoagulation Continue amiodarone, metoprolol succinate (5) Chronic diastolic CHF (congestive heart failure): Plan: CXR: Cardiomegaly with interstitial thickening suggestive of mild pulmonary edema Clinically patient appears euvolemic At home is on Lasix as needed. Monitor I's and O's, volume status low-salt No signs and/or symptoms of fluid overload and/or CHF (6) Anemia: (7) Thrombocytopenia: Plan: Chronic anemia, chronic thrombocytopenia Hgb: 10.8. Baseline~11. Patient with history of acute on chronic anemia 1 month ago secondary to right knee hematoma and required 2 units PRBC PLT: 143. Baseline in low 100's DVT Prophylaxis Heparin SQ Full Code as per discussion with pt Follows with Dr Reis for routine care Admission and Anticipated Discharge Date Admission Date: August 07, 2021 Subjective 08/08/2021 The patient was seen and examined in telemetry unit She complains to have minimal pain in the right knee and is status post I&D Denies any chest pain and/or palpitation or shortness of breath 08/09/2021 The patient was seen and examined in medical telemetry unit She has been feeling much better Complains pain in the right knee but not any worse 08/10/2021 The patient was seen and examined in medical telemetry unit She has been feeling much better Her right knee swelling and inflammation has gone down a lot The drainage and the wound VAC has increased Review of Systems Review of Systems: All systems reviewed and are unremarkable except as noted below Musculoskeletal: Right knee pain with movement Physical Exam Physical Exam: Sitting on a chair without any acute distress Constitutional: + ill appearing and average body habitus Eyes: PERRL, conjunctivae normal, anicteric sclerae ENMT: external ear and nose normal, oropharynx normal Neck: trachea midline, no thyromegaly Respiratory: no respiratory distress Auscultation: + diminished lung sounds and + crackles (Minimal crackles at the bases) Cardiovascular: Rate/Rhythm: regular rate and regular rhythm; not tachycardic Heart Sounds: normal S1 and normal S2; no murmur Extremities: + edema (Trace edema bilaterally) Gastrointestinal (Abdomen): Inspection/Auscultation: normal bowel sounds; abdomen not distended Percussion/Palpation: abdomen soft; abdomen nontender Musculoskeletal: Knee: + knee abnormal to inspection (Status post I&D of the right knee wound and placement of wound VAC ) Neurologic: Alert, awake and oriented x3. Generally weak but no focal neurodeficit Psychiatric: A+Ox3, euthymic affect Lymphatic: no cervical or axillary lymphadenopathy Results & Data Results & Data ([facility]) Vital Signs (Past 12 Hours) Vital Signs Temp Pulse Pulse Pulse Resp BP BP 08/10/21 15:21 36.6 C 57 L 18 118/64 08/10/21 14:22 56 L 08/10/21 11:12 37.0 C 58 L 18 110/60 08/10/21 07:40 36.8 C 61 18 120/60 08/10/21 07:11 37.1 C 59 L 18 145/76 H 08/10/21 06:13 59 L Pulse Ox 08/10/21 15:21 99 08/10/21 14:22 08/10/21 11:12 98 08/10/21 07:40 93 08/10/21 07:11 92 08/10/21 06:13 Laboratory Results Short CBC 08/10/21 Range/Units 10:18 WBC 4.61 L (4.8-10.8) K/uL Hgb 9.7 L (12.0-16.0) g/dL Hct 30.5 L (37-47) % Plt Count 156 (130-400) K/uL BMP 08/10/21 10:18 Sodium 135 L Potassium 4.3 Chloride 107 Carbon Dioxide 23 BUN 12 Creatinine 0.56 L Glucose 78 Calcium 7.7 L Medications Administered Current Inpatient Medications Acetaminophen (Acetaminophen 325 Mg Tab) 650 mg PO Q4H PRN PRN Reason: Pain or Fever Stop: 09/06/21 17:04 Last Admin: 08/10/21 11:04 Dose: 650 mg Documented by: Amiodarone HCl (Amiodarone 200 Mg Tab) 200 mg PO QAM [facility] Stop: 09/07/21 08:59 Last Admin: 08/10/21 07:50 Dose: 200 mg Documented by: Artificial Tears (Artificial Tears) 1 drops OP QID PRN PRN Reason: Dry Eye(S) Stop: 09/06/21 17:13 Ferrous Sulfate (Ferrous Sulfate 325 Mg Tab) 325 mg PO Q2D@0900 [facility] Stop: 09/07/21 08:59 Last Admin: 08/10/21 07:50 Dose: 325 mg Documented by: Fexofenadine HCl (Fexofenadine Hcl 180 Mg Tab) 180 mg PO HS [facility] Stop: 09/06/21 20:59 Last Admin: 08/09/21 20:00 Dose: 180 mg Documented by: Heparin Sodium (Porcine) (Heparin Sod 5,000 Unit/0.5 Ml Vial) 5,000 units SQ Q12 [facility] Stop: 09/06/21 20:59 Last Admin: 08/10/21 07:50 Dose: 5,000 units Documented by: Cefepime HCl 2,000 mg/ Syringe 20 mls @ 5 mls/min IV Q12H [facility]; Protocol Stop: 08/14/21 17:59 Last Admin: 08/10/21 06:45 Dose: 5 mls/min Documented by: Magnesium Oxide (Magnesium Oxide 400 Mg Tab) 400 mg PO QAM [facility] Stop: 09/07/21 08:59 Last Admin: 08/10/21 07:51 Dose: 400 mg Documented by: Metoprolol Succinate (Metoprolol Succ 25mg Ext Rel Tab) 12.5 mg PO QAM [facility] Stop: 09/07/21 08:59 Last Admin: 08/10/21 07:51 Dose: 12.5 mg Documented by: Ondansetron HCl (Ondansetron Inj 2 Mg/Ml 2 Ml Vial) 4 mg IV Q6H PRN PRN Reason: Nausea Stop: 09/06/21 17:04 Polyethylene Glycol (Polyethylene (Miralax) 17 Gm Pack) 17 gm PO DAILY PRN PRN Reason: Constipation Stop: 09/06/21 17:04 Potassium Chloride (Potassium Chloride 10 Meq Tabcr) 10 meq PO TID [facility] Stop: 09/06/21 20:59 Last Admin: 08/10/21 15:02 Dose: 10 meq Documented by: Potassium Phosphate (Pot Phosphate Monobasic W/ Sod Tab) 2 tab PO TID [facility] Stop: 09/06/21 20:59 Last Admin: 08/10/21 15:02 Dose: 2 tab Documented by: Pravastatin Sodium (Pravastatin Sod 40 Mg Tab) 80 mg PO QAM [facility] Stop: 09/07/21 08:59 Last Admin: 08/10/21 07:51 Dose: 80 mg Documented by: Prednisolone Acetate (Prednisolone Acetate 1% Op Susp 5 Ml Btl) 1 drops OP HS [facility] Stop: 09/06/21 20:59 Last Admin: 08/09/21 20:01 Dose: 1 drops Documented by: Solifenacin (Pt's Own Med - Solifenacin Succinate 5mg) 1 ea PO DAILY [facility] Stop: 09/08/21 08:59 Last Admin: 08/10/21 07:52 Dose: 1 ea Documented by: Tramadol HCl (Tramadol Hcl 50 Mg Tablet) 50 mg PO Q6H PRN PRN Reason: Pain Stop: 09/06/21 17:04 Last Admin: 08/08/21 15:49 Dose: 50 mg Documented by: (1) Fall Encounter type: initial encounter Qualified Code(s): W19.XXXA - Unspecified fall, initial encounter
[2021-08-10] MEDS: prednisoLONE acetate 1% OP SUSP 5 ML BTL OP SCH (20:10)
[2021-08-10] MEDS: FEXOFENADINE HCL 180 MG TAB PO SCH (20:10)
[2021-08-11] MEDS: CEFEPIME 2,000 MG in SYRINGE 0 ML IV SCH ×2 (05:21→16:24)
[2021-08-11] MEDS: POT PHOSPHATE MONOBASIC W/ SOD TAB PO SCH ×3 (07:48→22:07)
[2021-08-11] MEDS: AMIODARONE 200 MG TAB PO SCH (07:48)
[2021-08-11] MEDS: METOPROLOL SUCC 25MG EXT REL TAB PO SCH (07:48)
[2021-08-11] MEDS: SOLIFENACIN SUCCINATE 5 MG PO SCH (07:49)
[2021-08-11] MEDS: MAGNESIUM OXIDE 400 MG TAB PO SCH (07:49)
[2021-08-11] MEDS: PRAVASTATIN SOD 40 MG TAB PO SCH (07:49)
[2021-08-11] MEDS: HEPARIN SOD 5,000 UNIT/0.5 ML VIAL SQ SCH ×2 (07:50→22:52)
[2021-08-11] MEDS: POTASSIUM CHLORIDE 10 MEQ TABCR PO SCH ×3 (08:00→22:52)
[2021-08-11 09:02] LABS: Creatinine Clr Calc Pharmacy 71.9 ml/min; Est GFR (African American) 101.8 ml/min; Est GFR (Non-African American) 87.8 ml/min
--- NOTE | 2021-08-11 14:59 | Hospitalist Progress Note ---
Date of Service August 11, 2021 Assessment & Plan (1) Infected wound: Plan: Patient with history fall resulting in large right knee hematoma on 07/06/2021. During hospital admission ortho had attempted aspiration aspiration however no significant fluid removed. Bactrim started outpatient on 08/06/21 by PCP for right knee wound and cellulitis 08/06/2021 outpatient Preliminary wound culture: Many oxidase positive nonlactose forming gram-negative bacilli Wound nurse consult Ortho consult-appreciate input and recommendation Status post incision and drainage's of the right knee wound with placement of wound VAC Right knee remains swelled with adjoining redness and skin discoloration. Wound VAC is in place Right knee is showing much improvement with the wound VAC with less swelling and less redness and tenderness Right knee is much improved with decreasing swelling and also inflammation Will continue wound VAC as advised by the orthopedic surgeon (2) Cellulitis of leg, right: Plan: In ER vitals stable,afebrile. No leukocytosis. Lactate WNL, procalcitonin: 0.23. CRP and ESR elevated Right Knee Xray: No acute osseous pathology. Interval development of a large soft tissue ulceration along the medial aspect of the knee with air present. No extension into the joint is demonstrated radiographically. Blood cultures pending In ER given Rocephin, vancomycin Wound culture-is growing gram-negative bacilli and final sensitivities pending Start cefepime, vancomycin MRI knee r/o osteomyelitis-did not show any osteomyelitis But wound culture grew E. coli and Pseudomonas which are sensitive to int ravenous cefepime-we will continue current antibiotic Infectious seems to be under control with intravenous cefepime Cellulitis has been improving (3) Fall: Plan: Fall today in bathroom at wound clinic. Patient felt herself falling to left and fell to the floor. Does not think had syncope or hit head CT Head:No acute findings CT C-spine: no evidence of fracture or subluxation involving the cervical spine Tele to monitor for arrhythmia Fall precautions Will need PT eval after seen by ortho and prior to discharge Will need placement (4) Paroxysmal atrial fibrillation: Plan: No longer on anticoagulation Continue amiodarone, metoprolol succinate (5) Chronic diastolic CHF (congestive heart failure): Plan: CXR: Cardiomegaly with interstitial thickening suggestive of mild pulmonary e travis Clinically patient appears euvolemic At home is on Lasix as needed. Monitor I's and O's, volume status low-salt No signs and/or symptoms of fluid overload and/or CHF (6) Anemia: (7) Thrombocytopenia: Plan: Chronic anemia, chronic thrombocytopenia Hgb: 10.8. Baseline~11. Patient with history of acute on chronic anemia 1 month ago secondary to right knee hematoma and required 2 units PRBC PLT: 143. Baseline in low 100's DVT Prophylaxis Heparin SQ Full Code as per discussion with pt Follows with Dr Reis for routine care Admission and Anticipated Discharge Date Admission Date: August 07, 2021 Subjective 08/08/2021 The patient was seen and examined in telemetry unit She complains to have minimal pain in the right knee and is status post I&D Denies any chest pain and/or palpitation or shortness of breath 08/09/2021 The patient was seen and examined in medical telemetry unit She has been feeling much better Complains pain in the right knee but not any worse 08/10/2021 The patient was seen and examined in medical telemetry unit She has been feeling much better Her right knee swelling and inflammation has gone down a lot The drainage and the wound VAC has increased 08/11/2021 Patient was seen and examined in medical telemetry unit She has been stable and her knee swelling has been improving Denies any other significant symptoms Review of Systems Review of Systems: All systems reviewed and are unremarkable except as noted below Musculoskeletal: Right knee pain with movement Physical Exam Physical Exam: Sitting on a chair without any acute distress Constitutional: + ill appearing and average body habitus Eyes: PERRL, conjunctivae normal, anicteric sclerae ENMT: external ear and nose normal, oropharynx normal Neck: trachea midline, no thyromegaly Respiratory: no respiratory distress Auscultation: + diminished lung sounds and + crackles (Minimal crackles at the bases) Cardiovascular: Rate/Rhythm: regular rate and regular rhythm; not tachycardic Heart Sounds: normal S1 and normal S2; no murmur Extremities: + edema (Trace edema bilaterally) Gastrointestinal (Abdomen): Inspection/Auscultation: normal bowel sounds; abdomen not distended Percussion/Palpation: abdomen soft; abdomen nontender Musculoskeletal: Knee: + knee abnormal to inspection (Status post I&D of the right knee wound and placement of wound VAC ) Neurologic: Alert, awake and oriented x3. No focal sensory and motor deficit appreciated Psychiatric: A+Ox3, euthymic affect Lymphatic: no cervical or axillary lymphadenopathy Results & Data Results & Data ([facility]) Vital Signs (Past 12 Hours) Vital Signs Temp Pulse Pulse Resp BP BP Pulse Ox 08/11/21 11:08 36.9 C 63 18 115/68 99 08/11/21 07:43 36.8 C 56 L 18 152/65 H 96 08/11/21 07:15 56 L 08/11/21 04:10 36.7 C 57 L 18 145/68 H 93 Laboratory Results BMP 08/11/21 07:19 Creatinine 0.53 L Medications Administered Current Inpatient Medications Acetaminophen (Acetaminophen 325 Mg Tab) 650 mg PO Q4H PRN PRN Reason: Pain or Fever Stop: 09/06/21 17:04 Last Admin: 08/10/21 20:09 Dose: 650 mg Documented by: Amiodarone HCl (Amiodarone 200 Mg Tab) 200 mg PO QAM [facility] Stop: 09/07/21 08:59 Last Admin: 08/11/21 07:48 Dose: 200 mg Documented by: Artificial Tears (Artificial Tears) 1 drops OP QID PRN PRN Reason: Dry Eye(S) Stop: 09/06/21 17:13 Ferrous Sulfate (Ferrous Sulfate 325 Mg Tab) 325 mg PO Q2D@0900 [facility] Stop: 09/07/21 08:59 Last Admin: 08/10/21 07:50 Dose: 325 mg Documented by: Fexofenadine HCl (Fexofenadine Hcl 180 Mg Tab) 180 mg PO HS [facility] Stop: 09/06/21 20:59 Last Admin: 08/10/21 20:10 Dose: 180 mg Documented by: Heparin Sodium (Porcine) (Heparin Sod 5,000 Unit/0.5 Ml Vial) 5,000 units SQ Q12 [facility] Stop: 09/06/21 20:59 Last Admin: 08/11/21 07:50 Dose: 5,000 units Documented by: Cefepime HCl 2,000 mg/ Syringe 20 mls @ 5 mls/min IV Q12H [facility]; Protocol Stop: 08/14/21 17:59 Last Admin: 08/11/21 05:21 Dose: 5 mls/min Documented by: Magnesium Oxide (Magnesium Oxide 400 Mg Tab) 400 mg PO QAM [facility] Stop: 09/07/21 08:59 Last Admin: 08/11/21 07:49 Dose: 400 mg Documented by: Metoprolol Succinate (Metoprolol Succ 25mg Ext Rel Tab) 12.5 mg PO QAM [facility] Stop: 09/07/21 08:59 Last Admin: 08/11/21 07:48 Dose: 12.5 mg Documented by: Ondansetron HCl (Ondansetron Inj 2 Mg/Ml 2 Ml Vial) 4 mg IV Q6H PRN PRN Reason: Nausea Stop: 09/06/21 17:04 Polyethylene Glycol (Polyethylene (Miralax) 17 Gm Pack) 17 gm PO DAILY PRN PRN Reason: Constipation Stop: 09/06/21 17:04 Potassium Chloride (Potassium Chloride 10 Meq Tabcr) 10 meq PO TID [facility] Stop: 09/06/21 20:59 Last Admin: 08/11/21 11:20 Dose: 10 meq Documented by: Potassium Phosphate (Pot Phosphate Monobasic W/ Sod Tab) 2 tab PO TID [facility] Stop: 09/06/21 20:59 Last Admin: 08/11/21 11:20 Dose: 2 tab Documented by: Pravastatin Sodium (Pravastatin Sod 40 Mg Tab) 80 mg PO QAM [facility] Stop: 09/07/21 08:59 Last Admin: 08/11/21 07:49 Dose: 80 mg Documented by: Prednisolone Acetate (Prednisolone Acetate 1% Op Susp 5 Ml Btl) 1 drops OP HS [facility] Stop: 09/06/21 20:59 Last Admin: 08/10/21 20:10 Dose: 1 drops Documented by: Solifenacin (Pt's Own Med - Solifenacin Succinate 5mg) 1 ea PO DAILY [facility] Stop: 09/08/21 08:59 Last Admin: 08/11/21 07:49 Dose: 1 ea Documented by: Tramadol HCl (Tramadol Hcl 50 Mg Tablet) 50 mg PO Q6H PRN PRN Reason: Pain Stop: 09/06/21 17:04 Last Admin: 08/08/21 15:49 Dose: 50 mg Documented by: (1) Fall Encounter type: initial encounter Qualified Code(s): W19.XXXA - Unspecified fall, initial encounter
[2021-08-11] MEDS: ACETAMINOPHEN 325 MG TAB PO PRN (22:06)
[2021-08-11] MEDS: FEXOFENADINE HCL 180 MG TAB PO SCH (22:07)
[2021-08-11] MEDS: prednisoLONE acetate 1% OP SUSP 5 ML BTL OP SCH (22:07)
[2021-08-12] MEDS: CEFEPIME 2,000 MG in SYRINGE 0 ML IV SCH ×2 (05:18→16:07)
[2021-08-12] MEDS: POTASSIUM CHLORIDE 10 MEQ TABCR PO SCH ×3 (07:27→20:06)
[2021-08-12] MEDS: POT PHOSPHATE MONOBASIC W/ SOD TAB PO SCH ×3 (07:27→20:05)
[2021-08-12] MEDS: HEPARIN SOD 5,000 UNIT/0.5 ML VIAL SQ SCH ×2 (07:27→20:05)
[2021-08-12] MEDS: AMIODARONE 200 MG TAB PO SCH (07:28)
[2021-08-12] MEDS: METOPROLOL SUCC 25MG EXT REL TAB PO SCH (07:28)
[2021-08-12] MEDS: MAGNESIUM OXIDE 400 MG TAB PO SCH (07:28)
[2021-08-12] MEDS: FERROUS SULFATE 325 MG TAB PO SCH (07:28)
[2021-08-12] MEDS: PRAVASTATIN SOD 40 MG TAB PO SCH (07:28)
[2021-08-12] MEDS: SOLIFENACIN SUCCINATE 5 MG PO SCH (07:29)
--- NOTE | 2021-08-12 17:07 | Hospitalist Progress Note ---
Date of Service August 12, 2021 Assessment & Plan (1) Infected wound: Plan: Patient with history fall resulting in large right knee hematoma on 07/06/2021. During hospital admission ortho had attempted aspiration aspiration however no significant fluid removed. Bactrim started outpatient on 08/06/21 by PCP for right knee wound and cellulitis 08/06/2021 outpatient Preliminary wound culture: Many oxidase positive nonlactose forming gram-negative bacilli Wound nurse consult Ortho consult-appreciate input and recommendation Status post incision and drainage's of the right knee wound with placement of wound VAC Right knee remains swelled with adjoining redness and skin discoloration. Wound VAC is in place Right knee is showing much improvement with the wound VAC with less swelling and less redness and tenderness Right knee is much improved with decreasing swelling and also inflammation Will continue wound VAC as advised by the orthopedic surgeon Right knee wound seems to be worsening with increasing swelling and redness Wound VAC was not placed today-please look at the picture to evaluate the wound (2) Cellulitis of leg, right: Plan: In ER vitals stable,afebrile. No leukocytosis. Lactate WNL, procalcitonin: 0.23. CRP and ESR elevated Right Knee Xray: No acute osseous pathology. Interval development of a large soft tissue ulceration along the medial aspect of the knee with air present. No extension into the joint is demonstrated radiographically. Blood cultures pending In ER given Rocephin, vancomycin Wound culture-is growing gram-negative bacilli and final sensitivities pending Start cefepime, vancomycin MRI knee r/o osteomyelitis-did not show any osteomyelitis But wound culture grew E. coli and Pseudomonas which are sensitive to intravenous cefepime-we will continue current antibiotic Infectious seems to be under control with intravenous cefepime Cellulitis has been improving-redness around the knee joint Could be secondary to cellulitis (3) Fall: Plan: Fall today in bathroom at wound clinic. Patient felt herself falling to left and fell to the floor. Does not think had syncope or hit head CT Head:No acute findings CT C-spine: no evidence of fracture or subluxation involving the cervical spine Tele to monitor for arrhythmia Fall precautions Will need PT eval after seen by ortho and prior to discharge Will need placement (4) Paroxysmal atrial fibrillation: Plan: No longer on anticoagulation Continue amiodarone, metoprolol succinate (5) Chronic diastolic CHF (congestive heart failure): Plan: CXR: Cardiomegaly with interstitial thickening suggestive of mild pulmonary edema Clinically patient appears euvolemic At home is on Lasix as needed. Monitor I's and O's, volume status low-salt No signs and/or symptoms of fluid overload and/or CHF (6) Anemia: (7) Thrombocytopenia: Plan: Chronic anemia, chronic thrombocytopenia Hgb: 10.8. Baseline~11. Patient with history of acute on chronic anemia 1 month ago secondary to right knee hematoma and required 2 units PRBC PLT: 143. Baseline in low 100's DVT Prophylaxis Heparin SQ Full Code as per discussion with pt Follows with Dr Reis for routine care Admission and Anticipated Discharge Date Admission Date: August 07, 2021 Subjective 08/08/2021 The patient was seen and examined in telemetry unit She complains to have minimal pain in the right knee and is status post I&D Denies any chest pain and/or palpitation or shortness of breath 08/09/2021 The patient was seen and examined in medical telemetry unit She has been feeling much better Complains pain in the right knee but not any worse 08/10/2021 The patient was seen and examined in medical telemetry unit She has been feeling much better Her right knee swelling and inflammation has gone down a lot The drainage and the wound VAC has increased 08/11/2021 Patient was seen and examined in medical telemetry unit She has been stable and her knee swelling has been improving Denies any other significant symptoms 08/12/2021 The patient was seen and examined in medical telemetry unit She has minimal pain in the right knee joint Right knee seems to be more swollen with increased redness Wound noted to be worse in appearance Review of Systems Review of Systems: All systems reviewed and are unremarkable except as noted below Musculoskeletal: Right knee pain with movement Physical Exam Physical Exam: Sitting on a chair without any acute distress Constitutional: + ill appearing and average body habitus Eyes: PERRL, conjunctivae normal, anicteric sclerae ENMT: external ear and nose normal, oropharynx normal Neck: trachea midline, no thyromegaly Respiratory: no respiratory distress Auscultation: + diminished lung sounds and + crackles (Minimal crackles at the bases) Cardiovascular: Rate/Rhythm: regular rate and regular rhythm; not tachycardic Heart Sounds: normal S1 and normal S2; no murmur Extremities: + edema (Trace edema bilaterally) Gastrointestinal (Abdomen): Inspection/Auscultation: normal bowel sounds; abdomen not distended Percussion/Palpation: abdomen soft; abdomen nontender Musculoskeletal: Knee: + knee abnormal to inspection (Status post I&D of the right knee wound and placement of wound VAC ) Skin: Please see the picture for the appearance of the wound Psychiatric: A+Ox3, euthymic affect Lymphatic: no cervical or axillary lymphadenopathy Results & Data Results & Data ([facility]) Vital Signs (Past 12 Hours) Vital Signs Temp Pulse Pulse Resp BP Pulse Ox 08/12/21 15:00 57 L 08/12/21 14:55 36.4 C L 57 L 105/49 L 98 08/12/21 11:35 36.5 C 55 L 143/64 H 92 08/12/21 07:12 62 08/12/21 06:48 36.8 C 57 L 18 144/66 H 95 Medications Administered Current Inpatient Medications Acetaminophen (Acetaminophen 325 Mg Tab) 650 mg PO Q4H PRN PRN Reason: Pain or Fever Stop: 09/06/21 17:04 Last Admin: 08/11/21 22:06 Dose: 650 mg Documented by: Amiodarone HCl (Amiodarone 200 Mg Tab) 200 mg PO QAM [facility] Stop: 09/07/21 08:59 Last Admin: 08/12/21 07:28 Dose: 200 mg Documented by: Artificial Tears (Artificial Tears) 1 drops OP QID PRN PRN Reason: Dry Eye(S) Stop: 09/06/21 17:13 Ferrous Sulfate (Ferrous Sulfate 325 Mg Tab) 325 mg PO Q2D@0900 [facility] Stop: 09/07/21 08:59 Last Admin: 08/12/21 07:28 Dose: 325 mg Documented by: Fexofenadine HCl (Fexofenadine Hcl 180 Mg Tab) 180 mg PO HS [facility] Stop: 09/06/21 20:59 Last Admin: 08/11/21 22:07 Dose: 180 mg Documented by: Heparin Sodium (Porcine) (Heparin Sod 5,000 Unit/0.5 Ml Vial) 5,000 units SQ Q12 [facility] Stop: 09/06/21 20:59 Last Admin: 08/12/21 07:27 Dose: 5,000 units Documented by: Cefepime HCl 2,000 mg/ Syringe 20 mls @ 5 mls/min IV Q12H [facility]; Protocol Stop: 08/14/21 17:59 Last Admin: 08/12/21 16:07 Dose: 5 mls/min Documented by: Magnesium Oxide (Magnesium Oxide 400 Mg Tab) 400 mg PO QAM [facility] Stop: 09/07/21 08:59 Last Admin: 08/12/21 07:28 Dose: 400 mg Documented by: Metoprolol Succinate (Metoprolol Succ 25mg Ext Rel Tab) [facility] [place]: 09/07/21 08:59 Last Admin: 08/12/21 07:28 Dose: 12.5 mg Documented by: Ondansetron HCl (Ondansetron Inj 2 Mg/Ml 2 Ml Vial) 4 mg IV Q6H PRN PRN Reason: Nausea Stop: 09/06/21 17:04 Polyethylene Glycol (Polyethylene (Miralax) 17 Gm Pack) 17 gm PO DAILY PRN PRN Reason: Constipation Stop: 09/06/21 17:04 Potassium Chloride (Potassium Chloride 10 Meq Tabcr) 10 meq PO TID [facility] Stop: 09/06/21 20:59 Last Admin: 08/12/21 11:13 Dose: 10 meq Documented by: Potassium Phosphate (Pot Phosphate Monobasic W/ Sod Tab) 2 tab PO TID [facility] Stop: 09/06/21 20:59 Last Admin: 08/12/21 11:13 Dose: 2 tab Documented by: Pravastatin Sodium (Pravastatin Sod 40 Mg Tab) 80 mg PO [facility] Stop: 09/07/21 08:59 Last Admin: 08/12/21 07:28 Dose: 80 mg Documented by: Prednisolone Acetate (Prednisolone Acetate 1% Op Susp 5 Ml Btl) 1 drops OP HS [facility] Stop: 09/06/21 20:59 Last Admin: 08/11/21 22:07 Dose: 1 drops Documented by: Solifenacin (Pt's Own Med - Solifenacin Succinate 5mg) 1 ea PO DAILY [facility] Stop: 09/08/21 08:59 Last Admin: 08/12/21 07:29 Dose: 1 ea Documented by: Tramadol HCl (Tramadol Hcl 50 Mg Tablet) 50 mg PO Q6H PRN PRN Reason: Pain Stop: 09/06/21 17:04 Last Admin: 08/08/21 15:49 Dose: 50 mg Documented by: (1) Fall Encounter type: initial encounter Qualified Code(s): W19.XXXA - Unspecified fall, initial encounter
[2021-08-12] MEDS: FEXOFENADINE HCL 180 MG TAB PO SCH (20:05)
[2021-08-12] MEDS: prednisoLONE acetate 1% OP SUSP 5 ML BTL OP SCH (20:06)
--- NOTE | 2021-08-12 20:28 | Orthopedic Progress Note ---
Date of Service August 12, 2021 Assessment & Plan (1) Infected wound: Initial cultures have been polymicrobial. It appears everything is sensitive to cefepime. She is currently on cefepime as an antibiotic. She is responding to it well. She will likely need a PICC line and IV antibiotics. We are still awaiting infectious disease consultation. I will be present in the hospital on Tuesday for the VAC change. I would like to see the wound on Tuesday when the VAC is changed and before any discharge. Subjective Shannon was seen and examined at bedside this evening. Overall she says she is doing well. She denies any much pain in the right knee. The VAC sponge was changed today. She has no new complaints. Review of Systems All systems reviewed & are unremarkable except as noted in HPI & below. Physical Exam On physical examination of the right knee, there is still some persistent redness around the knee. There is some fluctuance medially and laterally. This is where there was a large hematoma that was evacuated. I do not see much difference from previous exams. Results & Data Results & Data Laboratory Results . Diagnostic Findings . PG Care Time/CCT Total # of Minutes Spent Total Time Spent with Patient: Total time spent is greater than 50% in coordination of care (as documented) at patient's floor/unit and/or counseling patient: Coding Level of Care Code 63104 Post Operative Follow-Up Diagnoses Infected wound T14.8XXA; L08.9
[2021-08-12] MEDS: ACETAMINOPHEN 325 MG TAB PO PRN (22:58)
[2021-08-13] MEDS: CEFEPIME 2,000 MG in SYRINGE 0 ML IV SCH ×2 (05:41→18:26)
[2021-08-13 07:55] LABS: Basophils # (auto) 0.02 K/uL (0-0.2); Basophils % (auto) 0.4 %; Eosinophils # (auto) 0.14 K/uL (0-0.5); Eosinophils % (auto) 2.8 %; Hematocrit (blood only) 28.6 % (37-47); Hemoglobin 9.1 g/dL (12.0-16.0); Immature Granulocytes # (auto) 0.02 K/uL (0.00-0.02); Immature Granulocytes % (auto) 0.4 %; Lymphocytes # (auto) 0.99 K/uL (1.2-3.4); Mean Corpuscular Hemoglobin 31.4 pg (25-34); Mean Corpuscular Hgb Conc 31.8 g/dL (32-36); Mean Corpuscular Volume 98.6 fL (80-100); Mean Platelet Volume 8.9 fL (7.4-10.4); Monocytes # (auto) 0.66 K/uL (0.11-0.59); Monocytes % (auto) 13.3 %; Neutrophils # (auto) 3.13 K/uL (1.4-6.5); Neutrophils % (auto) 63.1 %; Platelet Count 132 K/uL (130-400); RDW Coefficient of Variation 18.2 % (11.5-14.5); RDW Standard Deviation 65.6 fL (36.4-46.3); White Blood Count 4.96 K/uL (4.8-10.8)
[2021-08-13] MEDS: PRAVASTATIN SOD 40 MG TAB PO SCH (08:05)
[2021-08-13] MEDS: METOPROLOL SUCC 25MG EXT REL TAB PO SCH (08:05)
[2021-08-13] MEDS: POT PHOSPHATE MONOBASIC W/ SOD TAB PO SCH ×3 (08:06→21:13)
[2021-08-13] MEDS: AMIODARONE 200 MG TAB PO SCH (08:06)
[2021-08-13] MEDS: MAGNESIUM OXIDE 400 MG TAB PO SCH (08:06)
[2021-08-13] MEDS: POTASSIUM CHLORIDE 10 MEQ TABCR PO SCH ×3 (08:07→21:12)
[2021-08-13] MEDS: HEPARIN SOD 5,000 UNIT/0.5 ML VIAL SQ SCH ×2 (08:07→21:13)
[2021-08-13] MEDS: SOLIFENACIN SUCCINATE 5 MG PO SCH (08:07)
[2021-08-13 08:21] LABS: BUN Creatinine Ratio 25.5 (10-20); Calcium 7.6 mg/dl (8.5-10.1); Creatinine Clr Calc Pharmacy 74.7 ml/min; Est GFR (African American) 103.1 ml/min; Est GFR (Non-African American) 88.9 ml/min; Potassium 3.8 mmol/L (3.5-5.1)
--- NOTE | 2021-08-13 14:38 | Hospitalist Progress Note ---
Date of Service August 13, 2021 Assessment & Plan (1) Infected wound: Plan: Patient with history fall resulting in large right knee hematoma on 07/06/2021. During hospital admission ortho had attempted aspiration aspiration however no significant fluid removed. Bactrim started outpatient on 08/06/21 by PCP for right knee wound and cellulitis 08/06/2021 outpatient Preliminary wound culture: Many oxidase positive nonlactose forming gram-negative bacilli Wound nurse consult Ortho consult-appreciate input and recommendation Status post incision and drainage's of the right knee wound with placement of wound VAC Right knee remains swelled with adjoining redness and skin discoloration. Wound VAC is in place Right knee is showing much improvement with the wound VAC with less swelling and less redness and tenderness Right knee is much improved with decreasing swelling and also inflammation Will continue wound VAC as advised by the orthopedic surgeon Right knee wound seems to be worsening with increasing swelling and redness Wound VAC was not placed today-please look at the picture to evaluate the wound Right knee looks better today with the wound VAC in situ Dr. Barrow will examine the wound tomorrow and decide further recommendation Likely discharge tomorrow (2) Cellulitis of leg, right: Plan: In ER vitals stable,afebrile. No leukocytosis. Lactate WNL, procalcitonin: 0.23. CRP and ESR elevated Right Knee Xray: No acute osseous pathology. Interval development of a large soft tissue ulceration along the medial aspect of the knee with air present. No extension into the joint is demonstrated radiographically. Blood cultures pending In ER given Rocephin, vancomycin Wound culture-is growing gram-negative bacilli and final sensitivities pending Start cefepime, vancomycin MRI knee r/o osteomyelitis-did not show any osteomyelitis But wound culture grew E. coli and Pseudomonas which are sensitive to intravenous cefepime-we will continue current antibiotic Infectious seems to be under control with intravenous cefepime Cellulitis has been improving-redness around the knee joint Could be secondary to cellulitis Seems improved a lot (3) Fall: Plan: Fall today in bathroom at wound clinic. Patient felt herself falling to left and fell to the floor. Does not think had syncope or hit head CT Head:No acute findings CT C-spine: no evidence of fracture or subluxation involving the cervical spine Tele to monitor for arrhythmia Fall precautions Will need PT eval after seen by ortho and prior to discharge Will need placement (4) Paroxysmal atrial fibrillation: Plan: No longer on anticoagulation Continue amiodarone, metoprolol succinate Rate is controlled without any cardiac symptoms (5) Chronic diastolic CHF (congestive heart failure): Plan: CXR: Cardiomegaly with interstitial thickening suggestive of mild pulmonary edema Clinically patient appears euvolemic At home is on Lasix as needed. Monitor I's and O's, volume status low-salt No signs and/or symptoms of fluid overload and/or CHF (6) Anemia: (7) Thrombocytopenia: Plan: Chronic anemia, chronic thrombocytopenia Hgb: 10.8. Baseline~11. Patient with history of acute on chronic anemia 1 month ago secondary to right knee hematoma and required 2 units PRBC PLT: 143. Baseline in low 100's DVT Prophylaxis Heparin SQ Full Code as per discussion with pt Follows with Dr Reis for routine care Admission and Anticipated Discharge Date Admission Date: August 07, 2021 Subjective 08/08/2021 The patient was seen and examined in telemetry unit She complains to have minimal pain in the right knee and is status post I&D Denies any chest pain and/or palpitation or shortness of breath 08/09/2021 The patient was seen and examined in medical telemetry unit She has been feeling much better Complains pain in the right knee but not any worse 08/10/2021 The patient was seen and examined in medical telemetry unit She has been feeling much better Her right knee swelling and inflammation has gone down a lot The drainage and the wound VAC has increased 08/11/2021 Patient was seen and examined in medical telemetry unit She has been stable and her knee swelling has been improving Denies any other significant symptoms 08/12/2021 The patient was seen and examined in medical telemetry unit She has minimal pain in the right knee joint Right knee seems to be more swollen with increased redness Wound noted to be worse in appearance 08/13/2021 The patient was seen and examined in medical telemetry unit Her right knee is much improved today Decrease in swelling and decrease in redness and tenderness No fever and or chills Review of Systems Review of Systems: All systems reviewed and are unremarkable except as noted below Musculoskeletal: Right knee pain with movement Physical Exam Physical Exam: Sitting on a chair without any acute distress Constitutional: average body habitus; not ill appearing Eyes: PERRL, conjunctivae normal, anicteric sclerae ENMT: external ear and nose normal, oropharynx normal Neck: trachea midline, no thyromegaly Respiratory: no respiratory distress Auscultation: + diminished lung sounds and + crackles (Minimal crackles at the bases) Cardiovascular: Rate/Rhythm: regular rate and regular rhythm; not tachycardic Heart Sounds: normal S1 and normal S2; no murmur Extremities: + edema (Trace edema bilaterally) Gastrointestinal (Abdomen): Inspection/Auscultation: normal bowel sounds; abdomen not distended Percussion/Palpation: abdomen soft; abdomen nontender Musculoskeletal: Knee: + knee abnormal to inspection (Status post I&D of the right knee wound and placement of wound VAC ) Neurologic: Alert, awake and oriented x3. Generally weak but no focal sensory or motor deficit appreciated Psychiatric: A+Ox3, euthymic affect Lymphatic: no cervical or axillary lymphadenopathy Results & Data Results & Data ([facility]) Vital Signs (Past 12 Hours) Vital Signs Temp Pulse Pulse Resp BP BP Pulse Ox 08/13/21 11:47 36.7 C 54 L 18 114/68 97 08/13/21 09:32 57 L 08/13/21 06:49 36.8 C 67 18 162/68 H 92 08/13/21 04:09 36.8 C 95 H 20 130/78 94 Laboratory Results Short CBC 08/13/21 Range/Units 07:10 WBC 4.96 (4.8-10.8) K/uL Hgb 9.1 L (12.0-16.0) g/dL Hct 28.6 L (37-47) % Plt Count 132 (130-400) K/uL BMP 08/13/21 07:10 Sodium 134 L Potassium 3.8 Chloride 108 H Carbon Dioxide 22 BUN 13 Creatinine 0.51 L Glucose 73 Calcium 7.6 L Medications Administered Current Inpatient Medications Acetaminophen (Acetaminophen 325 Mg Tab) 650 mg PO Q4H PRN PRN Reason: Pain or Fever Stop: 09/06/21 17:04 Last Admin: 08/12/21 22:58 Dose: 650 mg Documented by: Amiodarone HCl (Amiodarone 200 Mg Tab) 200 mg PO QAM [facility] Stop: 09/07/21 08:59 Last Admin: 08/13/21 08:06 Dose: 200 mg Documented by: Artificial Tears (Artificial Tears) 1 drops OP QID PRN PRN Reason: Dry Eye(S) Stop: 09/06/21 17:13 Ferrous Sulfate (Ferrous Sulfate 325 Mg Tab) 325 mg PO Q2D@0900 [facility] Stop: 09/07/21 08:59 Last Admin: 08/12/21 07:28 Dose: 325 mg Documented by: Fexofenadine HCl (Fexofenadine Hcl 180 Mg Tab) 180 mg PO HS [facility] Stop: 09/06/21 20:59 Last Admin: 08/12/21 20:05 Dose: 180 mg Documented by: Heparin Sodium (Porcine) (Heparin Sod 5,000 Unit/0.5 Ml Vial) 5,000 units SQ Q12 [facility] Stop: 09/06/21 20:59 Last Admin: 08/13/21 08:07 Dose: 5,000 units Documented by: Cefepime HCl 2,000 mg/ Syringe 20 mls @ 5 mls/min IV Q12H [facility]; Protocol Stop: 08/14/21 17:59 Last Admin: 08/13/21 05:41 Dose: 5 mls/min Documented by: Magnesium Oxide (Magnesium Oxide 400 Mg Tab) 400 mg PO QAM [facility] Stop: 09/07/21 08:59 Last Admin: 08/13/21 08:06 Dose: 400 mg Documented by: Metoprolol Succinate (Metoprolol Succ 25mg Ext Rel Tab) 12.5 mg PO QAM [facility] Stop: 09/07/21 08:59 Last Admin: 08/13/21 08:05 Dose: 12.5 mg Documented by: Ondansetron HCl (Ondansetron Inj 2 Mg/Ml 2 Ml Vial) 4 mg IV Q6H PRN PRN Reason: Nausea Stop: 09/06/21 17:04 Polyethylene Glycol (Polyethylene (Miralax) 17 Gm Pack) 17 gm PO DAILY PRN PRN Reason: Constipation Stop: 09/06/21 17:04 Potassium Chloride (Potassium Chloride 10 Meq Tabcr) 10 meq PO TID [facility] Stop: 09/06/21 20:59 Last Admin: 08/13/21 13:20 Dose: 10 meq Documented by: Potassium Phosphate (Pot Phosphate Monobasic W/ Sod Tab) 2 tab PO TID [facility] Stop: 09/06/21 20:59 Last Admin: 08/13/21 13:20 Dose: 2 tab Documented by: Pravastatin Sodium (Pravastatin Sod 40 Mg Tab) 80 mg PO QAM [facility] Stop: 09/07/21 08:59 Last Admin: 08/13/21 08:05 Dose: 80 mg Documented by: Prednisolone Acetate (Prednisolone Acetate 1% Op Susp 5 Ml Btl) 1 drops OP HS [facility] Stop: 09/06/21 20:59 Last Admin: 08/12/21 20:06 Dose: 1 drops Documented by: Solifenacin (Pt's Own Med - Solifenacin Succinate 5mg) 1 ea PO DAILY [facility] Stop: 09/08/21 08:59 Last Admin: 08/13/21 08:07 Dose: 1 ea Documented by: Tramadol HCl (Tramadol Hcl 50 Mg Tablet) 50 mg PO Q6H PRN PRN Reason: Pain Stop: 09/06/21 17:04 Last Admin: 08/08/21 15:49 Dose: 50 mg Documented by: (1) Fall Encounter type: initial encounter Qualified Code(s): W19.XXXA - Unspecified fall, initial encounter
[2021-08-13] MEDS: ACETAMINOPHEN 325 MG TAB PO PRN (16:23)
[2021-08-13] MEDS: FEXOFENADINE HCL 180 MG TAB PO SCH (21:13)
[2021-08-13] MEDS: prednisoLONE acetate 1% OP SUSP 5 ML BTL OP SCH (21:15)
[2021-08-14] MEDS: CEFEPIME 2,000 MG in SYRINGE 0 ML IV SCH (06:09)
[2021-08-14] MEDS: METOPROLOL SUCC 25MG EXT REL TAB PO SCH (08:11)
[2021-08-14] MEDS: ACETAMINOPHEN 325 MG TAB PO PRN ×2 (08:12→13:54)
[2021-08-14] MEDS: MAGNESIUM OXIDE 400 MG TAB PO SCH (08:13)
[2021-08-14] MEDS: AMIODARONE 200 MG TAB PO SCH (08:13)
[2021-08-14] MEDS: POT PHOSPHATE MONOBASIC W/ SOD TAB PO SCH ×2 (08:13→13:45)
[2021-08-14] MEDS: FERROUS SULFATE 325 MG TAB PO SCH (08:14)
[2021-08-14] MEDS ORDERED: CIPROFLOXACIN 250 MG TAB PO SCH (08:15)
[2021-08-14] MEDS: POTASSIUM CHLORIDE 10 MEQ TABCR PO SCH ×2 (08:16→13:45)
[2021-08-14] MEDS: SOLIFENACIN SUCCINATE 5 MG PO SCH (08:17)
[2021-08-14] MEDS: PRAVASTATIN SOD 40 MG TAB PO SCH (08:18)
[2021-08-14] MEDS: HEPARIN SOD 5,000 UNIT/0.5 ML VIAL SQ SCH (08:30)
--- NOTE | 2021-08-14 09:14 | Orthopedic Progress Note ---
Date of Service August 14, 2021 Assessment & Plan (1) Infected wound: Overall she is doing well. I was present for the VAC change. The wound bed looks good. I stuck a Q-tip into the hematoma cavity that was present laterally. I did not get any excessive purulent discharge. I did get very sca nt amount of purulent discharge. Everything looks good. She will continue with wound VAC changes. Her daughter was with her on speaker phone during the visit. She is orthopedically stable for discharge when medically ready. She can continue to follow-up with wound care for VAC changes. She does not need to follow-up with me in the office. Keanu Ortega was seen and examined at bedside this morning. I was present for the VAC change. She is not having any pain in the right knee. She has no complaints. Review of Systems All systems reviewed & are unremarkable except as noted in HPI & below. Physical Exam On physical examinatio of the right knee, once the VAC was removed the wound bed looked good. It was like healthy tissue. I stuck a Q-tip within that cavity that held the hematoma previously. There was a very small amount of purulent discharge from there but nothing much. I do not feel that hematoma cavity is refilling with abscess at this time. The VAC sponge seems to be working well. Results & Data Results & Data Laboratory Results . Diagnostic Findings . PG Care Time/CCT Total # of Minutes Spent Total Time Spent with Patient: Total time spent is greater than 50% in coordination of care (as documented) at patient's floor/unit and/or counseling patient: Coding Level of Care Code 85011 Post Operative Follow-Up Diagnoses Infected wound T14.8XXA; L08.9
[2021-08-14] MEDS: metroNIDAZOLE 500 MG TAB PO SCH ×2 (09:40→13:44)
--- NOTE | 2021-08-14 12:59 | Hospitalist Progress Note ---
Date of Service August 14, 2021 Assessment & Plan (1) Infected wound: Plan: Patient with history fall resulting in large right knee hematoma on 07/06/2021. During hospital admission ortho had attempted aspiration aspiration however no significant fluid removed. Bactrim started outpatient on 08/06/21 by PCP for right knee wound and cellulitis 08/06/2021 outpatient Preliminary wound culture: Many oxidase positive nonlactose forming gram-negative bacilli Wound nurse consult Ortho consult-appreciate input and recommendation Status post incision and drainage's of the right knee wound with placement of wound VAC Right knee remains swelled with adjoining redness and skin discoloration. Wound VAC is in place Right knee is showing much improvement with the wound VAC with less swelling and less redness and tenderness Right knee is much improved with decreasing swelling and also inflammation Will continue wound VAC as advised by the orthopedic surgeon Right knee wound seems to be worsening with increasing swelling and redness Wound VAC was not placed today-please look at the picture to evaluate the wound Right knee looks better today with the wound VAC in situ Appreciate input from Ortho regarding further wound management-continue with the wound VAC (2) Cellulitis of leg, right: Plan: In ER vitals stable,afebrile. No leukocytosis. Lactate WNL, procalcitonin: 0.23. CRP and ESR elevated Right Knee Xray: No acute osseous pathology. Interval development of a large soft tissue ulceration along the medial aspect of the knee with air present. No extension into the joint is demonstrated radiographically. Blood cultures pending In ER given Rocephin, vancomycin Wound culture-is growing gram-negative bacilli and final sensitivities pending Start cefepime, vancomycin MRI knee r/o osteomyelitis-did not show any osteomyelitis But wound culture grew E. coli and Pseudomonas which are sensitive to intravenous cefepime-we will continue current antibiotic Infectious seems to be under control with intravenous cefepime Cellulitis has been improving-redness around the knee joint Could be secondary to cellulitis Seems improved a lot Has been getting oral Cipro and Flagyl which will be continued till of this month (3) Fall: Plan: Fall today in bathroom at wound clinic. Patient felt herself falling to left and fell to the floor. Does not think had syncope or hit head CT Head:No acute findings CT C-spine: no evidence of fracture or subluxation involving the cervical spine Tele to monitor for arrhythmia Fall precautions Will need PT eval after seen by ortho and prior to discharge Will be discharged home with home health nurse (4) Paroxysmal atrial fibrillation: Plan: No longer on anticoagulation Continue amiodarone, metoprolol succinate Rate is controlled without any cardiac symptoms (5) Chronic diastolic CHF (congestive heart failure): Plan: CXR: Cardiomegaly with interstitial thickening suggestive of mild pulmonary edema Clinically patient appears euvolemic At home is on Lasix as needed. Monitor I's and O's, volume status low-salt No signs and/or symptoms of fluid overload and/or CHF (6) Anemia: (7) Thrombocytopenia: Plan: Chronic anemia, chronic thrombocytopenia Hgb: 10.8. Baseline~11. Patient with history of acute on chronic anemia 1 month ago secondary to right knee hematoma and required 2 units PRBC PLT: 143. Baseline in low 100's DVT Prophylaxis Heparin SQ Full Code as per discussion with pt Follows with Dr Reis for routine care Will have regular follow-up in the wound clinic and also with her primary care physician Admission and Anticipated Discharge Date Admission Date: August 07, 2021 Subjective 08/08/2021 The patient was seen and examined in telemetry unit She complains to have minimal pain in the right knee and is status post I&D Denies any chest pain and/or palpitation or shortness of breath 08/09/2021 The patient was seen and examined in medical telemetry unit She has been feeling much better Complains pain in the right knee but not any worse 08/10/2021 The patient was seen and examined in medical telemetry unit She has been feeling much better Her right knee swelling and inflammation has gone down a lot The drainage and the wound VAC has increased 08/11/2021 Patient was seen and examined in medical telemetry unit She has been stable and her knee swelling has been improving Denies any other significant symptoms 08/12/2021 The patient was seen and examined in medical telemetry unit She has minimal pain in the right knee joint Right knee seems to be more swollen with increased redness Wound noted to be worse in appearance 08/13/2021 The patient was seen and examined in medical telemetry unit Her right knee is much improved today Decrease in swelling and decrease in redness and tenderness No fever and or chills 08/14/2021 The patient was seen and examined in medical telemetry unit She has been feeling much better Her wound was reviewed by Dr. Barrow this morning and was advised to continue with the wound VAC ID consultation was taken and will go by the recommendation She denies any other symptoms Review of Systems Review of Systems: All systems reviewed and are unremarkable except as noted below Musculoskeletal: Right knee pain with movement Physical Exam Physical Exam: Sitting on a chair without any acute distress Constitutional: average body habitus; not ill appearing Eyes: PERRL, conjunctivae normal, anicteric sclerae ENMT: external ear and nose normal, oropharynx normal Neck: trachea midline, no thyromegaly Respiratory: no respiratory distress Auscultation: + diminished lung sounds and + crackles (Minimal crackles at the bases) Cardiovascular: Rate/Rhythm: regular rate and regular rhythm; not tachycardic Heart Sounds: normal S1 and normal S2; no murmur Extremities: + edema (Trace edema bilaterally) Gastrointestinal (Abdomen): Inspection/Auscultation: normal bowel sounds; abdomen not distended Percussion/Palpation: abdomen soft; abdomen nontender Musculoskeletal: Knee: + knee abnormal to inspection (Status post I&D of the right knee wound and placement of wound VAC ) Neurologic: Alert, awake and oriented x3. No focal sensory and motor deficit appreciated Psychiatric: A+Ox3, euthymic affect Lymphatic: no cervical or axillary lymphadenopathy Results & Data Results & Data ([facility]) Vital Signs (Past 12 Hours) Vital Signs Temp Pulse Pulse Resp BP Pulse Ox 08/14/21 10:49 36.6 C 52 L 16 120/72 94 08/14/21 07:23 63 08/14/21 07:15 36.6 C 58 L 16 117/68 95 08/14/21 03:10 36.5 C 61 18 126/65 93 Medications Administered Current Inpatient Medications Acetaminophen (Acetaminophen 325 Mg Tab) 650 mg PO Q4H PRN PRN Reason: Pain or Fever Stop: 09/06/21 17:04 Last Admin: 08/14/21 13:54 Dose: 650 mg Documented by: Amiodarone HCl (Amiodarone 200 Mg Tab) [facility] [place] [place]: 09/07/21 08:59 Last Admin: 08/14/21 08:13 Dose: 200 mg Documented by: Artificial Tears (Artificial Tears) 1 drops OP QID PRN PRN Reason: Dry Eye(S) Stop: 09/06/21 17:13 Ciprofloxacin (Ciprofloxacin 250 Mg Tab) 750 mg PO Q12 [facility] Stop: 08/27/21 23:59 Last Admin: 08/14/21 09:41 Dose: 750 mg Documented by: Ferrous Sulfate (Ferrous Sulfate 325 Mg Tab) 325 mg PO Q2D@0900 [facility] Stop: 09/07/21 08:59 Last Admin: 08/14/21 08:14 Dose: 325 mg Documented by: Fexofenadine HCl (Fexofenadine Hcl 180 Mg Tab) 180 mg PO HS [facility] Stop: 09/06/21 20:59 Last Admin: 08/13/21 21:13 Dose: 180 mg Documented by: Heparin Sodium (Porcine) (Heparin Sod 5,000 Unit/0.5 Ml Vial) 5,000 units SQ Q12 [facility] Stop: 09/06/21 20:59 Last Admin: 08/14/21 08:30 Dose: 5,000 units Documented by: Magnesium Oxide (Magnesium Oxide 400 Mg Tab) 400 mg PO QAM [facility] Stop: 09/07/21 08:59 Last Admin: 08/14/21 08:13 Dose: 400 mg Documented by: Metoprolol Succinate (Metoprolol Succ 25mg Ext Rel Tab) 12.5 mg PO QAM [facility] Stop: 09/07/21 08:59 Last Admin: 08/14/21 08:11 Dose: Not Given Documented by: Metronidazole (Metronidazole 500 Mg Tab) 500 mg PO TID [facility] Stop: 08/27/21 23:59 Last Admin: 08/14/21 13:44 Dose: 500 mg Documented by: Ondansetron HCl (Ondansetron Inj 2 Mg/Ml 2 Ml Vial) 4 mg IV Q6H PRN PRN Reason: Nausea Stop: 09/06/21 17:04 Polyethylene Glycol (Polyethylene (Miralax) 17 Gm Pack) 17 gm PO DAILY PRN PRN Reason: Constipation Stop: 09/06/21 17:04 Potassium Chloride (Potassium Chloride 10 Meq Tabcr) 10 meq PO TID [facility] Stop: 09/06/21 20:59 Last Admin: 08/14/21 13:45 Dose: 10 meq Documented by: Potassium Phosphate (Pot Phosphate Monobasic W/ Sod Tab) 2 tab PO TID [facility] Stop: 09/06/21 20:59 Last Admin: 08/14/21 13:45 Dose: 2 tab Documented by: Pravastatin Sodium (Pravastatin Sod 40 Mg Tab) 80 mg PO QAM [facility] Stop: 09/07/21 08:59 Last Admin: 08/14/21 08:18 Dose: 80 mg Documented by: Prednisolone Acetate (Prednisolone Acetate 1% Op Susp 5 Ml Btl) 1 drops OP HS [facility] Stop: 09/06/21 20:59 Last Admin: 08/13/21 21:15 Dose: 1 drops Documented by: Solifenacin (Pt's Own Med - Solifenacin Succinate 5mg) 1 ea PO DAILY [facility]PH[facility] Stop: 09/08/21 08:59 Last Admin: 08/14/21 08:17 Dose: 1 ea Documented by: Tramadol HCl (Tramadol Hcl 50 Mg Tablet) 50 mg PO Q6H PRN PRN Reason: Pain Stop: 09/06/21 17:04 Last Admin: 08/08/21 15:49 Dose: 50 mg Documented by: (1) Fall Encounter type: initial encounter Qualified Code(s): W19.XXXA - Unspecified fall, initial encounter
--- NOTE | 2021-08-15 07:51 | Discharge Summary ---
Date of Service August 15, 2021 Admission HPI Per Admitting Provider Patient is 85 y/o F with PMH paroxysmal atrial fibrillation no longer anticoagulated on Eliquis, chronic diastolic CHF, MGUS, history of paraesophageal hernia repair resented to ER for right knee wound. Patient with history hospitalization 07/06/2021-07/12/2021 for fall resulting in large right knee hematoma. During admission was seen by Ortho and there was attempt at aspiration however no significant fluid removed. Patient had acute on chronic anemia with drop of hemoglobin down to 6.5 and was given 2 units PRBC. She was discharged from the hospital to [facility] discharged there on 07/22/2021. Reports had some drainage and small opening at that time. Reported blisters at right knee have opened while at home. Patient having home care nursing and home PT. Changing dressing everyday. Noticed increased drainage almost one week ago. Reports temperature of 100.9F on 08/01/2021. Reports redness to right knee past several days. Seen at PCPs office 08/06/2021 for cellulitis, wound culture was obtained and patient was started on Bactrim.Preliminary wound culture: Many oxidase positive nonlactose vomiting gram-negative bacilli. Today patient was being seen at wound clinic for right knee wound and there was concern for infection and patient was referred to ER. While at wound clinic is reported she had a fall episode. Patient states was using the bathroom and she felt herself falling to left and fell to the floor. Patient does not think she hit or head or had syncope. Patient's daughter reports she was outside of the bathroom and heard the patient yell and then heard her fall and patient was able to unlock the bathroom door immediately so she does not think patient had syncope. Patient denies any SOB, CP, dizziness, palpitations prior to fall. She was placed in c- collar and transported to ER. Denies diaphoresis, N/V/D/C, BORGES, dizziness, syncope, vision changes, neck pain, CP, SOB, orthopnea, palpitations, cough, sore throat, choking, otalgia, rhinorrhea, abdominal pain, paresthesias, weakness, increased extremity edema, rashes, urinary symptoms. Admission Exam Per Admitting Provider Physical Exam: General: no distress, WDWN Head: normocephalic, atraumatic Eyes: conjunctiva non-injected, anicteric ENT: normal inspection external ears, nose, mucous membranes moist Neck: supple, trachea midline Lungs: clear, no respiratory distress, faint rales noted LLL that clears with further deep breathing, no wheezing/rhonchi CV: RRR, + murmur, no pretibial edema Abd: normal BS, soft, non-tender Ext: no calf tenderness, RLE: +right knee +open wound approx 7cm x 8cm with foul odor noted, +surrounding erythema to knee extending distal leg, +edema right knee Neuro: A&O x 3, no focal deficits noted, normal affect Skin: warm, dry, skin tear left elbow, other as above in extremities Principal Diagnosis Infected right knee hematoma status post I&D and wound VAC placement, cellulitis of the right knee, paroxysmal atrial fibrillation, chronic diastolic CHF Discharge Exam Sitting on a chair without any acute distress Constitutional average body habitus; not ill appearing Eyes PERRL, conjunctivae normal, anicteric sclerae ENMT external ear and nose normal, oropharynx normal Neck trachea midline, no thyromegaly Respiratory no respiratory distress Auscultation: + diminished lung sounds and + crackles (Minimal crackles at the bases) Cardiovascular Rate/Rhythm: regular rate and regular rhythm; not tachycardic Heart Sounds: normal S1 and normal S2; no murmur Extremities: + edema (Trace edema bilaterally) Gastrointestinal (Abdomen) Inspection/Auscultation: normal bowel sounds; abdomen not distended Percussion/Palpation: abdomen soft; abdomen nontender Musculoskeletal Knee: + knee abnormal to inspection (Status post I&D of the right knee wound and placement of wound VAC ) Psychiatric A+Ox3, euthymic affect Lymphatic no cervical or axillary lymphadenopathy Discharge Data Allergies Allergy/AdvReac Type Severity Reaction Status Date / Time simvastatin Allergy Unknown ELEVATED Verified 08/07/21 12:04 LIVER ENZYMES oxaprozin AdvReac Intermediate MAKES FEEL Verified 08/07/21 12:04 DEPRESSED Consultations 08/07/21 12:46 ED Decision to Admit Stat 08/07/21 14:10 Consult Orthopedic Surgery Routine 08/13/21 08:15 Consult Infectious Diseases Routine Procedures Performed Operation Date: 08/08/21 07:30 Actual Procedures p Incision and Drainage of Right Knee Wound with Application of Wound Vac(Right) - Juan Pablo Barrow DO Ordered Studies 08/07/21 11:27 CT cervical spine wo con Stat CT head/brain wo con Stat 08/07/21 15:46 MR knee RT wo/w con Urgent Hospital Course (1) Infected wound: Patient with history fall resulting in large right knee hematoma on 07/06/2021. During hospital admission ortho had attempted aspiration aspiration however no significant fluid removed. Bactrim started outpatient on 08/06/21 by PCP for right knee wound and cellulitis 08/06/2021 outpatient Preliminary wound culture: Many oxidase positive nonlactose forming gram-negative bacilli Wound nurse consult Ortho consult-appreciate input and recommendation Status post incision and drainage's of the right knee wound with placement of wound VAC Right knee remains swelled with adjoining redness and skin discoloration. Wound VAC is in place Right knee is showing much improvement with the wound VAC with less swelling and less redness and tenderness Right knee is much improved with decreasing swelling and also inflammation Will continue wound VAC as advised by the orthopedic surgeon Right knee wound seems to be worsening with increasing swelling and redness Wound VAC was not placed today-please look at the picture to evaluate the wound Right knee looks better today with the wound VAC in situ Appreciate input from Ortho regarding further wound management-continue with the wound VAC (2) Cellulitis of leg, right: In ER vitals stable,afebrile. No leukocytosis. Lactate WNL, procalcitonin: 0.23. CRP and ESR elevated Right Knee Xray: No acute osseous pathology. Interval development of a large soft tissue ulceration along the medial aspect of the knee with air present. No extension into the joint is demonstrated radiographically. Blood cultures pending In ER given Rocephin, vancomycin Wound culture-is growing gram-negative bacilli and final sensitivities pending Start cefepime, vancomycin MRI knee r/o osteomyelitis-did not show any osteomyelitis But wound culture grew E. coli and Pseudomonas which are sensitive to intravenous cefepime-we will continue current antibiotic Infectious seems to be under control with intravenous cefepime Cellulitis has been improving-redness around the knee joint Could be secondary to cellulitis Seems improved a lot Has been getting oral Cipro and Flagyl which will be continued till 19th of this month (3) Fall: Fall today in bathroom at wound clinic. Patient felt herself falling to left and fell to the floor. Does not think had syncope or hit head CT Head:No acute findings CT C-spine: no evidence of fracture or subluxation involving the cervical spine Tele to monitor for arrhythmia Fall precautions Will need PT eval after seen by ortho and prior to discharge Will be discharged home with home health nurse (4) Paroxysmal atrial fibrillation: No longer on anticoagulation Continue amiodarone, metoprolol succinate Rate is controlled without any cardiac symptoms (5) Chronic diastolic CHF (congestive heart failure): CXR: Cardiomegaly with interstitial thickening suggestive of mild pulmonary edema Clinically patient appears euvolemic At home is on Lasix as needed. Monitor I's and O's, volume status low-salt No signs and/or symptoms of fluid overload and/or CHF (6) Anemia: (7) Thrombocytopenia: Chronic anemia, chronic thrombocytopenia Hgb: 10.8. Baseline~11. Patient with history of acute on chronic anemia 1 month ago secondary to right knee hematoma and required 2 units PRBC PLT: 143. Baseline in low 100's DVT Prophylaxis Heparin SQ Full Code as per discussion with pt Follows with Dr Reis for routine care Will have regular follow-up in the wound clinic and also with her primary care physician Total Time Total Time Spent Total Time Spent (In Minutes): 40 minutes Discharge Plan Discharge Items Patient Disposition: Home - Home Health Services Reason For Visit: CELLULITIS Discharge Diagnosis: Infected right knee hematoma status post I&D and wound VAC placement, cellulitis of the right knee, paroxysmal atrial fibrillation, chronic diastolic CHF Condition on Discharge: Fair Activity: As commented below Activity Comment: Continue outpatient PT Non-emergency contact: Primary Care Provider Call non-emergency contact if: you have any medication questions and your symptoms worsen [facility] ([address], [address] [place] [address] ) Eliazar Reis MD [Primary Care Provider] - (Date & Time 08/17/2021 11:00 AM Provider Eliazar Reis MD Department Family [facility] ) Diet: Regular Addtl Attending Provider Instructions: Please take precautions to avoid fall Apply wound VAC and wound care as per the instructions from the wound care nurse Finish the course of antibiotic Will need to have a repeat EKG during your visit to the primary care physician to make sure your QT remains intact Pending Studies at Discharge: No Stand-Alone Forms: My [facility], Smoking Cessation Medications and DC Order Prescriptions: New ciprofloxacin HCl 750 mg tablet 750 mg PO Q12 13 Days Qty: 26 RF: 0 metronidazole 500 mg Tablet 500 mg PO TID 13 Days Qty: 39 RF: 0 Lactinex 1 million cell tablet,chewable 1 tab PO BID Qty: 30 RF: 0 Continued tramadol 50 mg tablet 50 mg PO Q6H PRN (Reason: Pain) RF: 0 pravastatin 80 mg tablet 80 mg PO QAM RF: 0 prednisolone acetate 1 % drops,suspension 1 drp OPB HS RF: 0 magnesium oxide 500 mg tablet 500 mg PO QAM RF: 0 Phospha 250 Neutral 250 mg tablet 2 tab PO TID RF: 0 solifenacin 5 mg tablet 5 mg PO QAM RF: 0 acetaminophen [Tylenol Extra Strength] 500 mg Tablet 1,000 mg PO BID PRN (Reason: Pain) RF: 0 ascorbic acid (vitamin C) [Vitamin C] 500 mg Tablet 500 mg PO QAM RF: 0 ferrous sulfate [iron] 325 mg (65 mg iron) Tablet 325 mg PO Q OTHER DAY RF: 0 furosemide 20 mg tablet 20 mg PO DIRECTED PRN (Reason: Edema) RF: 0 potassium chloride 20 mEq tablet,ER particles/crystals 10 meq PO TID RF: 0 amiodarone 200 mg tablet 200 mg PO QAM RF: 0 Systane (PF) 0.4-0.3 % Dropperette 1 drp OPHTHALMIC (EYE) QID PRN (Reason: Dry Eye(S)) RF: 0 fexofenadine 180 mg Tablet 180 mg PO HS RF: 0 metoprolol succinate 25 mg tablet extended release 24 hr 12.5 mg PO QAM RF: 0 Discontinued sulfamethoxazole-trimethoprim [Bactrim DS] 800-160 mg tablet 1 tab PO BID RF: 0 Discharge Orders: Discharge Order (Routine); Ordered 08/14/21 Ordered By: Elisa Doll Admission Data Admit Date/Time: 08/07/21 13:27 Attending Provider: Elisa Doll Admit Provider: Jovana Malki Primary Care Provider: Eliazar Reis Other Providers: Jovana Malik ; Juan Pablo Barrow ; Errol Machado ; Rk Pardo ; Kan Virk I. ; Trung Mills II ; Yuly Duffy ; Emmanuel Earl ; Chris Payne Other Interventions: Discharge Summary Assessment (RN) Last Done: 08/14/21 15:57
--- NOTE | 2021-08-15 07:54 | Electrocardiogram Report ---
Test Reason : Blood Pressure : / mmHG Vent. Rate : 055 BPM Atrial Rate : 055 BPM P-R Int : 218 ms QRS Dur : 156 ms QT Int : 490 ms P-R-T Axes : 078 -48 024 degrees QTc Int : 468 ms Sinus bradycardia with 1st degree A-V block with Premature atrial complexes Right bundle branch block Left anterior fascicular block Bifascicular block Minimal voltage criteria for LVH, may be normal variant Abnormal ECG When compared with ECG of 07-AUG-2021 12:19, Premature atrial complexes are now Present Confirmed by John Roca ([id number]) on 08/15/2021 7:54:49 AM Referred By: REFERRED SELF Confirmed By:John Roca
== END 2021-08-14 16:30 | disposition home health service (06) | DRG 571 ==
LOC: ED 11:06 → SUATTDRO 13:27 → 2S 13:27 → 2N 08-08 08:23

== ENCOUNTER 2022-09-30 16:56 | Inpatient (IN) ==
[2022-09-30] MEDS ORDERED: SODIUM CHLORIDE 0.9% 500 ML IV SCH (17:15)
--- NOTE | 2022-09-30 17:27 | Emergency Department Note ---
Impression & Plan Nausea, CHF (congestive heart failure), Hypoxia, Elevated troponin ED Provider Note INFORMANT: Patient ED PROVIDER(S): Mickey Styles DO CHIEF COMPLAINT: Weakness, nausea, dry heaves PLAN: Disposition: Admission Outpatient prescription management: [none] Discussion with: I spoke with the hospitalist, who will see the patient for admission/observation and further evaluation and consultation. MEDICAL DECISION MAKING: This is a 87-year-old female who presents to the ED with a chief complaint of nausea and gagging as well as generalized weakness and not feeling well. She states that her symptoms started this morning. She states that she did not vomit because she has not vomited since hiatal hernia repair a couple of years ago. She states that she thought she was constipated but was unable to move her bowels today despite taking a stool softener. The patient has no other specific complaints at this time. Denies any abdominal pains. No chest pains or shortness of breath. Vital signs reveal hypertension and temp is 37.9. Oxygen saturations 89% on room air. She does report a new cough today. She does not typically use oxygen at home. Physical exam reveals clear lung sounds with diminished. No rashes. Heart is regular rate and rhythm. Systolic ejection murmur. No edema. The patient does have some JVD. The patient's EKG shows a sinus rhythm at a rate of 87 with a right bundle branch block and left anterior fascicular block. Chest x-ray, per radiology suggests moderate pulmonary edema. The patient was initially empirically given 5 cc normal saline bolus as she appeared to have a fever, however the CT scan of the chest did not show pneumonia. She was subsequently given 20 mg IV Lasix. She was noted to be hypertensive. She did require 2 L of nasal cannula oxygen to maintain saturations in the low to mid 90s. Troponin was mildly elevated. Chemistry panel did not show any concerning kidney dysfunction. The potassium was slig htly low. Patient was given some empiric IV antibiotics. The patient will be seen by the hospitalist for further evaluation and care Triage Nursing notes reviewed. Vital Signs: reviewed Prior /Outside records reviewed: [none] Differential diagnosis: [] Diagnostics, as interpreted by me: 12 lead ECG: Sinus rhythm rate of 87 with right bundle branch block. Left anterior fascicular block. No ST elevation. Normal QTc. Cardiac Monitoring ordered: Sinus rhythm in the 80s. Medical decision rules: [none] Imaging studies: Chest x-ray: No acute disease. No obvious pneumonia Procedures: none. Critical care: none. HPI: See MDM above. PAST MEDICAL HISTORY: See Below PAST SURGICAL HISTORY: See Below SOCIAL HISTORY: See Below HOME MEDICATIONS:See Below ALLERGIES: See Below VITALS: See Below PHYSICAL EXAMINATION: See MDM for positive findings otherwise unremarkable. CONSTITUTIONAL/VITAL SIGNS: Reviewed GENERAL:done as appropriate INTEGUMENTARY: done as appropriate HEAD: done as appropriate EYES: done as appropriate RESPIRATORY: done as appropriate CARDIOVASCULAR:done as appropriate GI/ABDOMEN:done as appropriate EXTREMITIES: done as appropriate NEUROLOGICAL: done as appropriate PSYCHIATRIC:done as appropriate MUSCULOSKELETAL:done as appropriate TRIAGE NURSING DOCUMENTATION REVIEWED. Past Med/Surg History Medical History Chronic diastolic CHF (congestive heart failure) GERD (gastroesophageal reflux disease) HLD (hyperlipidemia) HTN (hypertension) MGUS (monoclonal gammopathy of unknown significance) Paroxysmal atrial fibrillation Surgical History H/O: hysterectomy History of total knee arthroplasty S/P aortic valve replacement with bioprosthetic valve S/P repair of paraesophageal hernia Family History Other Cancer Diabetes Social History Smoking Status: Never smoker Second Hand Exposure: No; Do You Dip or Chew Tobacco: No; Hx Alcohol Use: Yes Alcohol type: hard liquor Hx Substance Use: No Preferred Language: Congolese Communication Ability: Effective Visual Impairment: Severely Limited Hearing Ability: Hard of Hearing Director Stars Required: No Beliefs That Will Affect Care: None marital status: / Current Living Situation: Family Current Living Situation Comment: lives with daughter Feels Safe at Home: Yes Diet: regular caffeine: Yes during the past year weight has: remained stable Assistive Devices: Walker and Wheelchair Allergies Allergies Allergy/AdvReac Type Severity Reaction Status Date / Time simvastatin AdvReac Severe ELEVATED Verified 09/30/22 18:21 LIVER ENZYMES oxaprozin AdvReac Intermediate MAKES FEEL Verified 09/30/22 18:21 DEPRESSED Home Meds Home Medications Medication Instructions Recorded Confirmed magnesium oxide 500 mg tablet 500 mg PO QAM 07/15/20 09/30/22 pravastatin 80 mg tablet 80 mg PO QAM 07/15/20 09/30/22 prednisolone acetate 1 % eye 1 drp OPB TID 07/15/20 09/30/22 drops,suspension sodium di- and 2 tab PO TID 07/15/20 09/30/22 monophosphate-potassium phos monobasic 250 mg tablet (Phospha Neutral) solifenacin 5 mg tablet 5 mg PO QAM 07/15/20 09/30/22 acetaminophen 500 mg tablet 1,000 mg PO BID PRN Pain 06/13/21 09/30/22 (Tylenol Extra Strength) amiodarone 200 mg tablet 200 mg PO QAM 06/13/21 09/30/22 ascorbic acid (vitamin C) 500 mg 500 mg PO QAM 06/13/21 09/30/22 tablet (Vitamin C) ferrous sulfate 325 mg (65 mg 325 mg PO Q OTHER DAY 06/13/21 09/30/22 iron) tablet (iron) furosemide 20 mg tablet 20 mg PO DIRECTED PRN Edema 06/13/21 09/30/22 fexofenadine 180 mg tablet 180 mg PO HS 07/06/21 09/30/22 peg 400-propylene glycol (PF) 0.4 1 drp ophthalmic (eye) QID PRN Dry 07/06/21 09/30/22 %-0.3 % eye drops in a dropperette Eye(S) (Systane (PF)) metoprolol succinate 25 mg 12.5 mg PO QAM 08/07/21 09/30/22 tablet,extended release 24 hr tramadol 50 mg tablet 50 mg PO Q6H PRN Pain 08/07/21 09/30/22 aspirin 81 mg tablet,delayed 81 mg PO DAILY 09/30/22 09/30/22 release calcium carbonate 500 mg-vitamin 1 tab PO TID 09/30/22 09/30/22 D3 10 mcg (400 unit) tablet (Calcium 500 + D) mirabegron 50 mg tablet,extended 100 mg PO QAM 09/30/22 09/30/22 release 24 hr (Myrbetriq) potassium chloride 10 mEq 10 meq PO QAM 09/30/22 09/30/22 tablet,extended release(part/cryst) (Klor-Con M) Results & Data (ED) Vital Signs Vital Signs - 24 hr 09/30/22 17:01 09/30/22 17:07 09/30/22 17:12 Temperature 37.9 C H Temperature Source Oral Pulse Rate 81 Respiratory Rate 22 Respiratory Effort / Characteristics Non-Labored Spontaneous Respiratory Depth Normal Respiratory Pattern Regular Blood Pressure 176/88 H Blood Pressure Mean 117 Pulse Oximetry 89 L 97 97 Oxygen Delivery Method Room Air Nasal Cannula Nasal Cannula Oxygen Flow Rate 2 Sepsis Recent Fever Within 48 Hours Yes Sepsis New/Unexplained Change in Mental Status N/A Sepsis Action Taken by Nursing No Action Required 09/30/22 17:12 Temperature Temperature Source Pulse Rate 77 Respiratory Rate Respiratory Effort / Characteristics Respiratory Depth Respiratory Pattern Blood Pressure Blood Pressure Mean Pulse Oximetry Oxygen Delivery Method Oxygen Flow Rate Sepsis Recent Fever Within 48 Hours Sepsis New/Unexplained Change in Mental Status Sepsis Action Taken by Nursing Laboratory Data 09/30/22 17:07 09/30/22 17:07 Lab Results 09/30/22 09/30/22 Range/Units 17:07 17:07 WBC 2.80 L (4.8-10.8) K/ul RBC 3.48 L (4.20-5.40) M/uL Hgb 11.8 L (12.0-16.0) g/dl Hct 36.0 L (37.0-47.0) % MCV 103.4 H (80.0-100.0) fL MCH 33.9 (25.0-34.0) pg MCHC 32.8 (32.0-36.0) g/dL RDW Std Deviation 58.9 H (36.4-46.3) fL RDW Coeff of Tung 15.7 H (11.5-14.5) % Plt Count (130-400) K/uL Immature Gran % (Auto) 0.0 % Neut % (Auto) 95.0 % Lymph % (Auto) 4.3 % [place] % (Auto) 0.7 % Eos % (Auto) 0.0 % Baso % (Auto) 0.0 % Neut # (Auto) 2.66 (1.40-6.50) K/uL Lymph # (Auto) 0.12 L (1.2-3.4) K/uL [place] # (Auto) 0.02 L (0.11-0.59) K/uL Eos # (Auto) 0.00 (0-0.50) K/uL Baso # (Auto) 0.00 (0-0.2) K/uL Immature Gran # (Auto) 0.00 L (0.01-0.20) K/uL Platelet Estimate Decreased L (Normal) Sodium 134 L (136-145) mmol/L Potassium 3.2 L (3.5-5.1) mmol/L Chloride 104 (98-107) mmol/L Carbon Dioxide 19 L (21-32) mmol/L Anion Gap 11 (3-11) BUN 15 (6-23) mg/dl Creatinine 0.65 (0.6-1.2) mg/dl Est Cr Clr Drug Dosing 57.0 ml/min Est GFR ( Amer) 93.8 ml/min Est GFR (Non-Af Amer) 81.0 ml/min BUN/Creatinine Ratio 23.1 H (10-20) Glucose 77 (70-99(Fasting)) mg/dl Calcium 8.6 (8.6-10.3) mg/dl Magnesium 1.7 (1.7-2.4) mg/dl Total Bilirubin 1.7 H (0.2-1.0) mg/dl AST 27 (13-39) U/L ALT 22 (7-52) U/L Alkaline Phosphatase 158 H (34-104) U/L Total Creatine Kinase 75 (26-192) U/L Troponin I High Sens 20.3 H (0-14) pg/ml Total Protein 10.1 H (6.0-8.3) gm/dl Albumin 2.9 L (3.4-5.0) gm/dl Globulin 7.2 H (2.5-4.0) gm/dl Albumin/Globulin Ratio 0.4 L (0.9-2) Administered Medications Discontinued Medications Sodium Chloride (Nss) 500 mls @ 999 mls/hr IV .Q31M STEPHANIE Stop: 09/30/22 17:45 Last Infusion: 09/30/22 18:49 Dose: 0 mls/hr Documented By: Admin: 09/30/22 18:00 Dose: 999 mls/hr Documented By: BASILIO Imaging Data Radiologist's Impression: Chest X-Ray 09/30/22 17:02 XR chest 1V portable CLINICAL HISTORY: weakness TECHNIQUE: Single frontal radiograph of the chest was obtained. Comparison: Comparison is made to chest radiograph 08/07/2021 FINDINGS: Median sternotomy wires are unchanged. Atrial appendage clip noted. Cardiomegaly is noted. The aortic arch is calcified. Prominence and cephalization of the vasculature is seen. No evidence of pleural effusion or pneumothorax. IMPRESSION: Cardiomegaly and moderate pulmonary edema. ACT 112: Negative or not required by law. Electronically signed by: Kenrick Acosta M.D. 09/30/2022 5:48 PM Abdomen/Pelvis CT 09/30/22 17:23 CT abd pelvis wo con CLINICAL HISTORY: nausea, dry heaving TECHNIQUE: Helical axial images of the abdomen and pelvis were obtained. Automated dose lowering techniques and/or adjustment according to patient size were utilized for this exam. This exam was performed without intravenous contrast. CT DOSE: 1444.28 mGy.cm COMPARISON: Comparison is made to CT abdomen pelvis 07/15/2020 FINDINGS: Lower chest: For findings above the diaphragm, please see CT chest performed same day. Liver: A right hepatic calcification is seen. Gallbladder and biliary tree: No calcified gallstones. Normal caliber wall. No intra- or extrahepatic biliary ductal dilation. Pancreas: Unremarkable, no focal lesions. Spleen: Unremarkable. 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 Kidneys and ureters: Unremarkable. Bladder: Unremarkable. Reproductive organs: Patient is status post hysterectomy. Bowel: Diverticulosis is seen without evidence of diverticulitis. The appendix is normal. Lymph nodes Retroperitoneal: Subcentimeter lymph nodes are noted. Pelvic: Unremarkable. Mesenteric: Unremarkable. Peritoneum: There is peritoneal stranding and a small amount of ascites. Vessels: Unremarkable. Abdominal wall: Fat and fluid containing umbilical hernia and bilateral inguinal hernias are seen. Body wall edema is noted. Bones: Degenerative changes in the visualized spine. IMPRESSION: Anasarca and mild peritoneal stranding noted which may be secondary to fluid overload. No acute abnormalities. ACT 112: Negative or not required by law. Electronically signed by: Kenrick Acosta M.D. 09/30/2022 6:[address] 09/30/22 17:34 CT chest diagnostic wo con CLINICAL HISTORY: eval for pneumonia TECHNIQUE: Multidetector row helical CT of the chest was performed. Coronal and sagittal reformations were obtained. Automated dose lowering techniques and/or adjustment according to patient size were utilized for this exam. Comparison: Comparison is made to CT chest 07/15/2020 FINDINGS: Lungs and pleura: Interlobular septal thickening is seen with mosaic attenuation. There is trace bilateral pleural effusion. Heart and pericardium: Cardiomegaly is seen with biatrial enlargement. Mitral annular calcification is noted. Vessels: Severe atherosclerotic changes in the aorta and coronary arteries. The pulmonary trunk measures 31 mm in diameter. Mediastinum and maurice: Subcentimeter lymph nodes are seen. Chest wall and lower neck: Unremarkable. Abdomen: For findings below the diaphragm, please refer to CT of the abdomen dated the same. Bones: Degenerative changes in the thoracic spine. IMPRESSION: No pneumonia is seen. Interstitial thickening and mosaic attenuation may reflect fibrotic changes and small airways disease. ACT 112: Negative or not required by law. Electronically signed by: Kenrick Acosta M.D. 09/30/2022 6:20 PM Discharge Plan Visit Data Chief Complaint: Weakness ED Provider: Mickey Styles Discharge Problem: Nausea, CHF (congestive heart failure), Hypoxia, Elevated troponin Forms Stand Alone Forms: [facility] [place] [employer] Prescriptions Prescriptions: No Action tramadol 50 mg tablet 50 mg PO Q6H PRN (Reason: Pain) pravastatin 80 mg tablet 80 mg PO QAM prednisolone acetate 1 % drops,suspension 1 drp OPB TID magnesium oxide 500 mg tablet 500 mg PO QAM Phospha 250 Neutral 250 mg tablet 2 tab PO TID solifenacin 5 mg tablet 5 mg PO QAM acetaminophen [Tylenol Extra Strength] 500 mg Tablet 1,000 mg PO BID PRN (Reason: Pain) ascorbic acid (vitamin C) [Vitamin C] 500 mg Tablet 500 mg PO QAM ferrous sulfate [iron] 325 mg (65 mg iron) Tablet 325 mg PO Q OTHER DAY furosemide 20 mg tablet 20 mg PO DIRECTED PRN (Reason: Edema) amiodarone 200 mg tablet 200 mg PO QAM aspirin 81 mg Tablet,Delayed Release (Dr/Ec) 81 mg PO DAILY Rx Instructions: PER PT'S DAUGHTER "NORMALLY TAKES EVERY DAY, HASN'T TAKEN FOR ABOUT A WEEK NOW". potassium chloride [Klor-Con M10] 10 mEq tablet,ER particles/crystals 10 meq PO QAM Rx Instructions: PER PT'S DAUGHTER "ONLY TAKES ONCE A DAY". PER EXT MED HX, TID. calcium carbonate-vitamin D3 [Calcium 500 + D] 500 mg-10 mcg (400 unit) Tablet 1 tab PO TID Myrbetriq 50 mg tablet extended release 24 hr 100 mg PO QAM Rx Instructions: PER PT'S DAUGHTER "2 TABS DAILY", PER EXT MED HX--50 MG DAILY. Systane (PF) 0.4-0.3 % Dropperette 1 drp OPHTHALMIC (EYE) QID PRN (Reason: Dry Eye(S)) fexofenadine 180 mg Tablet 180 mg PO HS metoprolol succinate 25 mg tablet extended release 24 hr 12.5 mg PO QAM Referrals Referrals: Eliazar Reis MD [Primary Care Provider] -
[2022-09-30 17:45] LABS: Albumin Globulin Ratio 0.4 (0.9-2); Albumin Level 2.9 gm/dl (3.4-5.0); BUN Creatinine Ratio 23.1 (10-20); Bilirubin,Total 1.7 mg/dl (0.2-1.0); Calcium 8.6 mg/dl (8.6-10.3); Est GFR (African American) 93.8 ml/min; Globulin 7.2 gm/dl (2.5-4.0); Magnesium 1.7 mg/dl (1.7-2.4); Potassium 3.2 mmol/L (3.5-5.1); Total Protein 10.1 gm/dl (6.0-8.3)
--- NOTE | 2022-09-30 17:50 | XRay Report ---
XR chest 1V portable CLINICAL HISTORY: weakness TECHNIQUE: Single frontal radiograph of the chest was obtained. Comparison: Comparison is made to chest radiograph 08/07/2021 FINDINGS: Median sternotomy wires are unchanged. Atrial appendage clip noted. Cardiomegaly is noted. The aortic arch is calcified. Prominence and cephalization of the vasculature is seen. No evidence of pleural e ffusion or pneumothorax. IMPRESSION: Cardiomegaly and moderate pulmonary edema. ACT 112: Negative or not required by law. Electronically signed by: Kenrick Acosta M.D. 09/30/2022 5:48 PM
[2022-09-30 17:51] LABS: Troponin I High Sensitivity 20.3 pg/ml (0-14)
--- NOTE | 2022-09-30 18:21 | CT Scan Report ---
CT chest diagnostic wo con CLINICAL HISTORY: eval for pneumonia TECHNIQUE: Multidetector row helical CT of the chest was performed. Coronal and sagittal reformations were obtained. Automated dose lowering techniques and/or adjustment according to patient size were u tilized for this exam. Comparison: Comparison is made to CT chest 07/15/2020 FINDINGS: Lungs and pleura: Interlobular septal thickening is seen with mosaic attenuation. There is trace bila teral pleural effusion. Heart and pericardium: Cardiomegaly is seen with biatrial enlargement. Mitral annular calcification i s noted. Vessels: Severe atherosclerotic changes in the aorta and coronary arteries. The pulmonary trunk measu res 31 mm in diameter. Mediastinum and maurice: Subcentimeter lymph nodes are seen. Chest wall and lower neck: Unremarkable. Abdomen: For findings below the diaphragm, please refer to CT of the abdomen dated the same. Bones: Degenerative changes in the thoracic spine. IMPRESSION: No pneumonia is seen. Interstitial thickening and mosaic attenuation may reflect fibrotic changes and small airways disease. ACT 112: Negative or not required by law. Electronically signed by: Kenrick Acosta M.D. 09/30/2022 6:20 PM
[2022-09-30 18:22] LABS: Hemoglobin 11.8 g/dl (12.0-16.0); Lymphocytes # (auto) 0.12 K/uL (1.2-3.4); Lymphocytes % (auto) 4.3 %; Mean Corpuscular Hemoglobin 33.9 pg (25.0-34.0); Mean Corpuscular Hgb Conc 32.8 g/dL (32.0-36.0); Mean Corpuscular Volume 103.4 fL (80.0-100.0); Monocytes # (auto) 0.02 K/uL (0.11-0.59); Monocytes % (auto) 0.7 %; Neutrophils # (auto) 2.66 K/uL (1.40-6.50); Platelet Estimate Decreased (Normal); RDW Coefficient of Variation 15.7 % (11.5-14.5); RDW Standard Deviation 58.9 fL (36.4-46.3); Red Blood Count 3.48 M/uL (4.20-5.40)
--- NOTE | 2022-09-30 18:39 | CT Scan Report ---
CT abd pelvis wo con CLINICAL HISTORY: nausea, dry heaving TECHNIQUE: Helical axial images of the abdomen and pelvis were obtained. Automated dose lowering tech niques and/or adjustment according to patient size were utilized for this exam. This exam was perfor med without intravenous contrast. CT DOSE: 1444.28 mGy.cm COMPARISON: Comparison is made to CT abdomen pelvis 07/15/2020 FINDINGS: Lower chest: For findings above the diaphragm, please see CT chest performed same day. Liver: A right hepatic calcification is seen. Gallbladder and biliary tree: No calcified gallstones. Normal caliber wall. No intra- or extrahepatic biliary ductal dilation. Pancreas: Unremarkable, no focal lesions. Spleen: Unremarkable. 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 Kidneys and ureters: Unremarkable. Bladder: Unremarkable. Reproductive organs: Patient is status post hysterectomy. Bowel: Diverticulosis is seen without evidence of diverticulitis. The appendix is normal. Lymph nodes Retroperitoneal: Subcentimeter lymph nodes are noted. Pelvic: Unremarkable. Mesenteric: Unremarkable. Peritoneum: There is peritoneal stranding and a small amount of ascites. Vessels: Unremarkable. Abdominal wall: Fat and fluid containing umbilical hernia and bilateral inguinal hernias are seen. Sukhdeep dy wall edema is noted. Bones: Degenerative changes in the visualized spine. IMPRESSION: Anasarca and mild peritoneal stranding noted which may be secondary to fluid overload. No acute abnor malities. ACT 112: Negative or not required by law. Electronically signed by: Kenrick Acosta M.D. 09/30/2022 6:36 PM
[2022-09-30] MEDS ORDERED: CEFEPIME 2,000 MG/20 ML VIAL IV STA (18:52)
[2022-09-30] MEDS ORDERED: POTASSIUM CHLORIDE 10 MEQ TABCR PO STA (18:52)
[2022-09-30] MEDS ORDERED: FUROSEMIDE INJ 20 MG/2 ML VIAL IV ONE (18:52)
--- NOTE | 2022-09-30 19:39 | History & Physical Report ---
Date of Service September 30, 2022 Assessment & Plan (1) Hypoxia: (2) Acute on chronic heart failure with preserved ejection fraction (HFpEF): (3) Generalized weakness: (4) Hypokalemia: (5) Elevated troponin: (6) Paroxysmal atrial fibrillation: (7) MGUS (monoclonal gammopathy of unknown significance): Plan This is an 87-year-old female who has significant past medical history of paroxysmal atrial fibrillation s/p left atrial appendage ligation, chronic HFpEF, history of aortic valve replacement, GERD, hyperlipidemia, urge incontinence, MGUS who presents to ED secondary to weakness and ill feeling x2 days. Last echocardiogram April 2021 revealed EF 55 to 59%, bilateral atrial severely enlarged, aortic valve prosthesis stable showing normal gradients, moderate MR, severe TR, moderate pulm hypertension. Acute hypoxic respiratory failure Acute decompensated HFpEF Elevated troponin hx of bioprosthetic AVR Admit to telemetry Patient received 20 mg IV Lasix in ED Strict intake and output Daily weights Consult cardiology We will update echocardiogram Elevated troponin likely in setting of demand ischemia due to heart failure, doubt ACS, but will trend Hypokalemia Replete Elevated temperature Temperature on arrival was 37.9; however per daughter temperature at home was 98.6 and temperature in the room during my examination was 98.6 as well Patient has not had any Tylenol since this morning She empirically received IV cefepime in ED Obtain blood cultures in setting of heart valve and waiting on urinalysis Continue to empirically cover with ceftriaxone but likely able to DC in 1 to 2 days if infectious work-up negative given possible low plts will also check for lyme/anaplasma Paroxysmal atrial fibrillation Off Eliquis due to bleeding risk Continue metoprolol and amiodarone On baby aspirin rate and rhythm controlled Hypertension Patient blood pressure elevated in the ED on metoprolol as OP BP controlled per outpatient readings follow closely on floor, may need additional IV agent if still elevated Hx of night terrors/Delirium pt daughter states has happened during previous hospital stays she is only a few miles away and able to come sit with patient overnight if this occurs as this has helped in past Hx of MGUS pt with elevated total protein 10.1 with elevated globulin gap will order SPEP/UPEP pt will need out heme f/u DVT ppx: Plt counts are clumped, will order repeat; if plt count normal will need to add chemical ppx in a.m.; scds for now; pt with low plts as outpt ranging 70s-100s Pt daughter is Nicole Salazar, , and she would like contacted if she is not in room regarding physician encounter due to mother being forgetful FULL CODE Dispo: admit to tele, PT/OT ordered PCP: [facility] Pt seen and examined in collaboration with Dr. Cano, please see addendum A total of 75 was spent coordinating, documenting, and providing care for this patient excluding time spent in the performance of separately billed services. This included personally viewing all current laboratories and imaging studies, medication reconciliation, outpatient chart review, and discussion with specialists. History of Present Illness Chief Complaint: Weakness and ill feeling x 2 days. Primary Care Provider: Eliazar Reis MD This is an 87-year-old female who has significant past medical history of paroxysmal atrial fibrillation s/p left atrial appendage ligation, chronic HFpEF, history of aortic valve replacement, GERD, hyperlipidemia, urge incontin ence, MGUS who presents to ED secondary to weakness and ill feeling x2 days. Patient's daughter Jeaneth is at bedside. Patient lives at [place] however her other daughter lives in [place] and she does receive her cardiac care through [facility]. At baseline patient is pretty sedentary but does ambulate with a walker. She is a fall risk. They were up in the [place] area dog sitting. Over the last 1 to 2 days patient generally has felt more weak. She also has had increased fatigue, chills, nausea, "gagging,", increased urinary urgency and difficulty moving bowels. She has history of paraesophageal hernia repair and therefore states that she cannot vomit. In ED patient was found to be hypertensive and mildly hypoxic saturating 89% on room air. She does have a chronic cough that occurs first thing in the morning and then resolves. This is unchanged. She generally does not feel more short of breath than usual. Over the last several months even little activity has made her more fatigued. Daughter states that she has Lasix at home as needed to take when she has swelling. She took this once last week. She has been compliant with her other medications. She did have mildly elevated temp upon arrival at 37.9. She was empirically given cefepime to cover for possible infectious process. SARS-CoV-2 and influenza negative. Urinalysis is still pending. She was placed on supplemental oxygen and given 20 mg of IV Lasix. She did have mildly elevated troponin at 20.3. Patient states that she felt chilled today but denies any fever or sweats. Daughter states she took her temperature at home and it was 98.6. Patient denies any lightheadedness, dizziness, chest pain, hemoptysis, vomiting, dysuria, hematuria or melena. She does complain of lower suprapubic discomfort. Allergies Allergy/AdvReac Type Severity Reaction Status Date / Time simvastatin AdvReac Severe ELEVATED Verified 09/30/22 18:21 LIVER ENZYMES oxaprozin AdvReac Intermediate MAKES FEEL Verified 09/30/22 18:21 DEPRESSED Home Medications Medication Instructions Recorded Confirmed Type magnesium oxide 500 mg tablet 500 mg PO QAM 07/15/20 09/30/22 History pravastatin 80 mg tablet 80 mg PO QAM 07/15/20 09/30/22 History prednisolone acetate 1 % eye 1 drp OPB TID 07/15/20 09/30/22 History drops,suspension sodium di- and 2 tab PO TID 07/15/20 09/30/22 History monophosphate-potassium phos monobasic 250 mg tablet (Phospha Neutral) solifenacin 5 mg tablet 5 mg PO QAM 07/15/20 09/30/22 History acetaminophen 500 mg tablet 1,000 mg PO BID PRN Pain 06/13/21 09/30/22 History (Tylenol Extra Strength) amiodarone 200 mg tablet 200 mg PO QAM 06/13/21 09/30/22 History ascorbic acid (vitamin C) 500 mg 500 mg PO QAM 06/13/21 09/30/22 History tablet (Vitamin C) ferrous sulfate 325 mg (65 mg 325 mg PO Q OTHER DAY 06/13/21 09/30/22 History iron) tablet (iron) furosemide 20 mg tablet 20 mg PO DIRECTED PRN Edema 06/13/21 09/30/22 History fexofenadine 180 mg tablet 180 mg PO HS 07/06/21 09/30/22 History peg 400-propylene glycol (PF) 0.4 1 drp ophthalmic (eye) QID PRN Dry 07/06/21 09/30/22 History %-0.3 % eye drops in a dropperette Eye(S) (Systane (PF)) metoprolol succinate 25 mg 12.5 mg PO QAM 08/07/21 09/30/22 History tablet,extended release 24 hr aspirin 81 mg tablet,delayed 81 mg PO DAILY 09/30/22 09/30/22 History release calcium carbonate 500 mg-vitamin 1 tab PO TID 09/30/22 09/30/22 History D3 10 mcg (400 unit) tablet (Calcium 500 + D) mirabegron 50 mg tablet,extended 50 mg PO QAM 09/30/22 09/30/22 History release 24 hr (Myrbetriq) potassium chloride 10 mEq 10 meq PO BID 09/30/22 09/30/22 History tablet,extended release(part/cryst) (Klor-Con M) Past Med/Surg History Medical History (Updated 09/30/22 @ 20:47 by Guerita Gaston PA-C) Chronic diastolic CHF (congestive heart failure) GERD (gastroesophageal reflux disease) HLD (hyperlipidemia) HTN (hypertension) MGUS (monoclonal gammopathy of unknown significance) Paroxysmal atrial fibrillation Surgical History H/O: hysterectomy History of total knee arthroplasty S/P aortic valve replacement with bioprosthetic valve S/P repair of paraesophageal hernia Family History Other Cancer Diabetes Social History (Updated 09/30/22 @ 20:43 by Guerita Gaston PA-C) Smoking Status: Never smoker Second Hand Exposure: No; Do You Dip or Chew Tobacco: No; Hx Alcohol Use: Yes Alcohol type: hard liquor Hx Substance Use: No Preferred Language: American Communication Ability: Effective Visual Impairment: Severely Limited Hearing Ability: Hard of Hearing Riveter Portable Machine Required: No Beliefs That Will Affect Care: None marital status: / Current Living Situation: Family Current Living Situation Comment: lives with daughter Feels Safe at Home: Yes Diet: regular caffeine: Yes during the past year weight has: remained stable Assistive Devices: Walker and Wheelchair Review of Systems Review of Systems: All systems reviewed & are unremarkable except as noted in HPI & below Physical Exam Physical Exam: Constitutional: WD/WN, elderly, F, dry mucous membranes, vitals as above, NAD, sitting up in bed, pleasant, conversing easily Head: Normocephalic, Atraumatic Eyes: PERRL, conjunctivae normal, anicteric sclerae ENMT: external ear and nose normal, oropharynx normal but dry Neck: trachea midline, no thyromegaly normal visual inspection Respiratory: normal respiratory effort, lungs clear to auscultation, no wheeze, rales, rhonchi. Normal insp/exp effort, no accessory muscle use Cardiovascular: RRR, avr auscultated, b/l venous stasis changes, no warmth or erythema, no edema Vessels: no JVD or carotid bruit Chest: normal inspection of chest Abdomen: normal bowel sounds, soft, nontender, no hepatosplenomegaly Musculoskeletal: no cyanosis or clubbing, extremities AROM x 4 Skin: no rashes, warm and dry normal turgor Neurologic: PERRL, EOMI, accommodation nl, no face palsy, no dysarthria CN's II-XI intact bilaterally and moves all extremities Psychiatric: A+Ox3, euthymic affect Lymphatic: no cervical or axillary lymphadenopathy : deferred Results & Data Results & Data Vital Signs (Past 12 Hours) Vital Signs Temp Pulse Resp BP Pulse Ox O2 Del Method O2 Flow Rate 09/30/22 17:12 77 09/30/22 17:12 97 Nasal Cannula 09/30/22 17:07 97 Nasal Cannula 2 09/30/22 17:01 37.9 C H 81 22 176/88 H 89 L Room Air Diagnostic Findings Chest X-Ray 09/30/22 17:02 XR chest 1V portable CLINICAL HISTORY: weakness TECHNIQUE: Single frontal radiograph of the chest was obtained. Comparison: Comparison is made to chest radiograph 08/07/2021 FINDINGS: Median sternotomy wires are unchanged. Atrial appendage clip noted. Cardiomegaly is noted. The aortic arch is calcified. Prominence and cephalization of the vasculature is seen. No evidence of pleural effusion or pneumothorax. IMPRESSION: Cardiomegaly and moderate pulmonary edema. ACT 112: Negative or not required by law. Electronically signed by: Kenrick Acosta M.D. 09/30/2022 5:48 PM Abdomen/Pelvis CT 09/30/22 17:23 CT abd pelvis wo con CLINICAL HISTORY: nausea, dry heaving TECHNIQUE: Helical axial images of the abdomen and pelvis were obtained. Automated dose lowering techniques and/or adjustment according to patient size were utilized for this exam. This exam was performed without intravenous contrast. CT DOSE: 1444.28 mGy.cm COMPARISON: Comparison is made to CT abdomen pelvis 07/15/2020 FINDINGS: Lower chest: For findings above the diaphragm, please see CT chest performed same day. Liver: A right hepatic calcification is seen. Gallbladder and biliary tree: No calcified gallstones. Normal caliber wall. No intra- or extrahepatic biliary ductal dilation. Pancreas: Unremarkable, no focal lesions. Spleen: Unremarkable. 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 Kidneys and ureters: Unremarkable. Bladder: Unremarkable. Reproductive organs: Patient is status post hysterectomy. Bowel: Diverticulosis is seen without evidence of diverticulitis. The appendix is normal. Lymph nodes Retroperitoneal: Subcentimeter lymph nodes are noted. Pelvic: Unremarkable. Mesenteric: Unremarkable. Peritoneum: There is peritoneal stranding and a small amount of ascites. Vessels: Unremarkable. Abdominal wall: Fat and fluid containing umbilical hernia and bilateral inguinal hernias are seen. Body wall edema is noted. Bones: Degenerative changes in the visualized spine. IMPRESSION: Anasarca and mild peritoneal stranding noted which may be secondary to fluid overload. No acute abnormalities. ACT 112: Negative or not required by law. Electronically signed by: Kenrick Acosta M.D. 09/30/2022 6:[address] 09/30/22 17:34 CT chest diagnostic wo con CLINICAL HISTORY: eval for pneumonia TECHNIQUE: Multidetector row helical CT of the chest was performed. Coronal and sagittal reformations were obtained. Automated dose lowering techniques and/or adjustment according to patient size were utilized for this exam. Comparison: Comparison is made to CT chest 07/15/2020 FINDINGS: Lungs and pleura: Interlobular septal thickening is seen with mosaic attenuation. There is trace bilateral pleural effusion. Heart and pericardium: Cardiomegaly is seen with biatrial enlargement. Mitral annular calcification is noted. Vessels: Severe atherosclerotic changes in the aorta and coronary arteries. The pulmonary trunk measures 31 mm in diameter. Mediastinum and maurice: Subcentimeter lymph nodes are seen. Chest wall and lower neck: Unremarkable. Abdomen: For findings below the diaphragm, please refer to CT of the abdomen dated the same. Bones: Degenerative changes in the thoracic spine. IMPRESSION: No pneumonia is seen. Interstitial thickening and mosaic attenuation may reflect fibrotic changes and small airways disease. ACT 112: Negative or not required by law. Electronically signed by: Kenrick Acosta M.D. 09/30/2022 6:20 PM Medications Administered Medication List Discontinued Medications Furosemide (Furosemide Inj 20 Mg/2 Ml Vial) 20 mg IV ONE ONE Stop: 09/30/22 18:53 Last Admin: 09/30/22 19:14 Dose: 20 mg Documented By: MAIRA Sodium Chloride (Nss) 500 mls @ 999 mls/hr IV .Q31M STEPHANIE Stop: 09/30/22 17:45 Last Infusion: 09/30/22 18:49 Dose: 0 mls/hr Documented By: Admin: 09/30/22 18:00 Dose: 999 mls/hr Documented By: ARIEL Cefepime HCl (Maxipime) 2,000 mg in 20 mls @ 5 mls/min IV NOW STA; Protocol Stop: 09/30/22 18:55 Last Admin: 09/30/22 19:14 Dose: 5 mls/min Documented By: MAIRA Potassium Chloride (Potassium Chloride 10 Meq Tabcr) 40 meq PO NOW STA Stop: 09/30/22 18:53 Last Admin: 09/30/22 19:15 Dose: 40 meq Documented By: MAIRA ECG Rate (beats per minute): 87 Rhythm: normal sinus Additional Comments: RBBB, LAFB, Bifascicular block, PVC, COVID-19 Results Results COVID-19 Adm Lab Results: RBC 3.48 M/uL (4.20-5.40) L 09/30/22 WBC 2.80 K/ul (4.8-10.8) L 09/30/22 Hgb 11.8 g/dl (12.0-16.0) L 09/30/22 Hct 36.0 % (37.0-47.0) L 09/30/22 Plt Count K/uL (130-400) 09/30/22 Neutrophils (%) (Auto) 95.0 % 09/30/22 Lymphocytes (%) (Auto) 4.3 % 09/30/22 Monocytes # (Auto) 0.02 K/uL (0.11-0.59) L 09/30/22 Eosinophils # (Auto) 0.00 K/uL (0-0.50) 09/30/22 Immature Granulocyte % (Auto) 0.0 % 09/30/22 Neutrophils # (Auto) 2.66 K/uL (1.40-6.50) 09/30/22 Lymphocytes # (Auto) 0.12 K/uL (1.2-3.4) L 09/30/22 Monocytes # (Auto) 0.02 K/uL (0.11-0.59) L 09/30/22 Eosinophils # (Auto) 0.00 K/uL (0-0.50) 09/30/22 Basophils # (Auto) 0.00 K/uL (0-0.2) 09/30/22 Immature Granulocyte # (Auto) 0.00 K/uL (0.01-0.20) L 09/30 Na 134 mmol/L (136-145) L 09/30/22 K 3.2 mmol/L (3.5-5.1) L 09/30/22 Cl 104 mmol/L (98-107) 09/30/22 CO2 19 mmol/L (21-32) L 09/30/22 Anion Gap 11 (3-11) 09/30/22 BUN 15 mg/dl (6-23) 09/30/22 Creatinine 0.65 mg/dl (0.6-1.2) 09/30/22 BUN/Creatinine Ratio 23.1 (10-20) H 09/30/22 Glucose Level 77 mg/dl (70-99(Fasting)) 09/30/22 Ca 8.6 mg/dl (8.6-10.3) 09/30/22 Total Bilirubin 1.7 mg/dl (0.2-1.0) H 09/30/22 Direct Bilirubin 0.4 mg/dl (0-0.2) H 09/30/22 AST/SGOT 27 U/L (13-39) 09/30/22 ALT/SGPT 22 U/L (7-52) 09/30/22 Alkaline Phosphatase 158 U/L (34-104) H 09/30/22 Total Protein 10.1 gm/dl (6.0-8.3) H 09/30/22 Albumin 2.9 gm/dl (3.4-5.0) L 09/30/22 Globulin 7.2 gm/dl (2.5-4.0) H 09/30/22 Albumin/Globulin Ratio 0.4 (0.9-2) L 09/30/22 Total CK 75 U/L (26-192) 09/30/22 COVID-19 PCR NEGATIVE (Negative) 09/30/22 Influenza Virus Type A (PCR) Negative (Neg) 09/30/22 Influenza Virus Type B (PCR) Negative (Neg) 09/30/[address] 09/30/22 Chest X-Ray 09/30/22 Code Status & VTE Plan Code Status FULL CODE VTE Prophylaxis Plan VTE Prophylaxis will be ordered: Yes Supervising Physician Co-Signing Physician Notes Ms. Salazar is an 87-year-old female with pmhx (per chart) of pAfib s/p left atrial appendage ligation, chronic HFpEF, history of aortic valve replacement, HLP, GERD, urge incontinence, and MGUS. She presented d/t worsening malaise, generalized weakness x 2 days. Here she is found to have acute respiratory failure with hypoxia d/t acute on chronic HFpEF, uncontrolled HTN, elevated troponin, and hypokalemia. Hx is per pt and daughter at bedside. Over the past few days they note increase in malaise, generalized weakness, and fatigue. These symptoms may have been worsening more gradually for a few weeks first, it is not entirely clear. Additionally she has progressively declining exercise tolerance over weeks to months. On the day of presentation the patient developed severe nausea with dry heaving. She had been constipated and thought that could be the problem. Her last good bm was within the past 2 days, but today she moved only "little pieces" of stool. This was associated with chills and increased urinary urgency. Her daughter at bedside gives Ms. Salazar lasix as needed. She last gave her lasix about 2 weeks ago and did not appreciate any significant edema since then. She did notice an increase of 5 lbs over the 2 days and suspected it was fluid, but as she did not see any edema, and the pt had no respiratory complaints, she didn't think lasix was needed. Ms. Salazar is visiting from [place] (one of her daughters lives in [place]) but has cardiac care through [facility]. # malaise/fatigue/weakness covid and flu neg no e/o infectious etiology on imaging UA pending continue empiric abx for now, supplemental O2 # acute on chronic HFpEF: pulmonary edema and b/l pleural effusions noted on chest x-ray and CT chest respectively. Anasarca noted on CT A/P continue diuresis with furosemide, f/u TTE monitor daily weight, strict I/O cardiology consulted, appreciate input, will follow recs discussed GDMT with pt and daughter, explained will need to balance meds with BP/pt needs (BB previously reduced d/t what sounds like orthostatic hypotension and dizziness) wean O2 as able # acute hypoxic respiratory failure: d/t acute on chronic HFpEF tx as above # uncontrolled HTN: d/t acute on chronic HFpEF, tx as above # elevated trop: mild, likely d/t demand of acute on chronic HFpEF, continue with diuresis, serial troponin # PAfib: currently rate controlled, continue metoprolol 12.5 mg daily and amiodarone 200 mg daily. Not on AC d/t fall risk. S/p left atrial appendage ligation # elevated serum protein: possibly d/t MGUS. Protein is beyond baseline and expected to rise with hemoconcentration from diuresis. F/u SPEP, UPEP. Can likely f/u OP with heme-onc. physical exam Gen: frail elderly appearing female, alert, NAD, non-toxic Head: Normocephalic, Atraumatic Eyes: Left ptosis, conjunctivae clear, anicteric sclerae Nose: normal, nares patent Neck: supple, trachea midline Pulm: normal respiratory effort, b/l crackles lower lobes, diminished sounds CV: RRR, S1 S2 Abdomen: +BS, soft, NT, ND, no guarding Extremities: trace pitting edema Skin: visible skin is warm, dry and without rashes. She has hyperpigmentation of the distal b/l LE consistent with chronic stasis. Right loo with scar and hyperpigmentation from prior wound Neurologic: alert, moves all 4 extremities symmetrically Psychiatric: pleaseant mood and affect Rest per attested note above.
[2022-09-30 19:47] LABS: Influenza A virus by PCR Negative (Neg); Influenza B virus by PCR Negative (Neg); RSV by PCR Negative (Neg); SARS CoV2 RNA(COVID-19) Ceph NEGATIVE (Negative)
[2022-09-30 21:00] LABS: Bilirubin Direct 0.4 mg/dl (0-0.2)
[2022-09-30 21:52] LABS: Appearance Urine Cloudy (Clear); Bacteria Urine Automated 3+ (Negative); Bilirubin Urine Negative (Negative); Blood Urine 3+ (Negative); Cast Urine Automated 0 /lpf (0-5); Color Urine Yellow; Glucose Urine UA Negative (Negative); Ketones Urine Negative (Negative); Leukocyte Esterase Urine Negative (Negative); Nitrite Urine Negative (Negative); RBC Urine Automated >30 /hpf (0-4); Specific Gravity Urine 1.009 (1.000-1.030); Urobilinogen Urine Negative (Negative); pH Urine 7.5 (4.5-7.5)
[2022-09-30 21:56] LABS: Lyme Ab IgG w/WB Rflx Negative (Negative); Lyme Ab IgM w/WB Rflx Negative (Negative)
[2022-09-30 22:00] LABS: Protein Urine 2+ (Negative)
[2022-09-30] MEDS ORDERED: ONDANSETRON INJ 2 MG/ML 2 ML VIAL IV PRN (22:26)
[2022-09-30] MEDS ORDERED: POLYETHYLENE (MIRALAX) 17 GM PACK PO PRN (22:26)
[2022-09-30] MEDS ORDERED: ACETAMINOPHEN 325 MG TAB PO PRN (22:26)
[2022-09-30] MEDS ORDERED: POTASSIUM CHLORIDE CRTAB 20 MEQ TABCR PO ONE (22:26)
[2022-09-30] MEDS ORDERED: MAGNESIUM HYDROXIDE SUSP 30 ML UDC PO PRN (22:26)
[2022-09-30] MEDS ORDERED: ARTIFICIAL TEARS OP PRN (22:37)
[2022-09-30] MEDS: prednisoLONE acetate 1% OP SUSP 5 ML BTL OPB SCH (23:23)
[2022-09-30] MEDS: CALCIUM 600MG + VIT D 400 IU TAB PO SCH (23:24)
[2022-09-30] MEDS: POT PHOSPHATE MONOBASIC W/ SOD TAB PO SCH (23:24)
[2022-09-30] MEDS: FEXOFENADINE HCL 180 MG TAB PO SCH (23:24)
[2022-10-01 06:30] LABS: Basophils # (auto) 0.05 K/uL (0-0.2); Basophils % (auto) 0.3 %; Eosinophils # (auto) 0.01 K/uL (0-0.50); Eosinophils % (auto) 0.1 %; Hematocrit (blood only) 29.4 % (37.0-47.0); Hemoglobin 9.8 g/dl (12.0-16.0); Immature Granulocytes # (auto) 0.13 K/uL (0.01-0.20); Immature Granulocytes % (auto) 0.8 %; Lymphocytes % (auto) 4.7 %; Mean Corpuscular Hemoglobin 33.7 pg (25.0-34.0); Mean Corpuscular Hgb Conc 33.3 g/dL (32.0-36.0); Monocytes # (auto) 1.09 K/uL (0.11-0.59); Monocytes % (auto) 6.3 %; Neutrophils # (auto) 15.11 K/uL (1.40-6.50); Neutrophils % (auto) 87.8 %; Platelet Count 56 K/uL (130-400); RDW Coefficient of Variation 15.9 % (11.5-14.5); RDW Standard Deviation 58.1 fL (36.4-46.3); Red Blood Count 2.91 M/uL (4.20-5.40); White Blood Count 17.19 K/ul (4.8-10.8)
[2022-10-01 06:45] LABS: Albumin Globulin Ratio 0.4 (0.9-2); Albumin Level 2.4 gm/dl (3.4-5.0); BUN Creatinine Ratio 24.3 (10-20); Calcium 7.7 mg/dl (8.6-10.3); Est GFR (African American) 85.6 ml/min; Est GFR (Non-African American) 73.9 ml/min; Magnesium 1.8 mg/dl (1.7-2.4); Phosphorus 4.4 mg/dl (2.5-4.9); Potassium 3.5 mmol/L (3.5-5.1); Total Protein 8.4 gm/dl (6.0-8.3)
[2022-10-01 06:52] LABS: Troponin I High Sensitivity 61.2 pg/ml (0-14)
[2022-10-01] MEDS: cefTRIAXone SODIUM 1,000 MG in DEXTROSE 5% AD-VAN 50 ML IV SCH (08:05)
[2022-10-01] MEDS: prednisoLONE acetate 1% OP SUSP 5 ML BTL OPB SCH ×3 (08:57→19:52)
[2022-10-01] MEDS: POT PHOSPHATE MONOBASIC W/ SOD TAB PO SCH ×3 (08:58→19:50)
[2022-10-01] MEDS: PRAVASTATIN SOD 40 MG TAB PO SCH (08:58)
[2022-10-01] MEDS: OXYBUTYNIN CHLORIDE XL 5 MG TABCR PO SCH (08:58)
[2022-10-01] MEDS: METOPROLOL SUCC 25MG EXT REL TAB PO SCH (08:59)
[2022-10-01] MEDS: AMIODARONE 200 MG TAB PO SCH (08:59)
[2022-10-01] MEDS: POTASSIUM CHLORIDE 10 MEQ TABCR PO SCH ×2 (08:59→19:52)
[2022-10-01] MEDS: CALCIUM 600MG + VIT D 400 IU TAB PO SCH ×3 (08:59→19:51)
[2022-10-01] MEDS: ASPIRIN 81 MG ECTAB PO SCH (09:00)
[2022-10-01] MEDS: MAGNESIUM OXIDE 400 MG TAB PO SCH (09:00)
[2022-10-01] MEDS: FUROSEMIDE INJ 20 MG/2 ML VIAL IV SCH (09:00)
[2022-10-01] MEDS: FERROUS SULFATE 325 MG TAB PO SCH (09:00)
[2022-10-01] MEDS: VIBEGRON 75 MG TAB PO SCH (09:00)
[2022-10-01 09:47] LABS: Hematocrit (blood only) 29.8 % (37.0-47.0); Hemoglobin 9.9 g/dl (12.0-16.0); Mean Corpuscular Hemoglobin 34.1 pg (25.0-34.0); Mean Corpuscular Hgb Conc 33.2 g/dL (32.0-36.0); Mean Corpuscular Volume 102.8 fL (80.0-100.0); Platelet Count 59 K/uL (130-400); RDW Coefficient of Variation 15.9 % (11.5-14.5); RDW Standard Deviation 59.3 fL (36.4-46.3); White Blood Count 15.92 K/ul (4.8-10.8)
[2022-10-01 10:19] LABS: D Dimer 5970 ug/L FEU (0-500)
--- NOTE | 2022-10-01 10:20 | Cardiology Consultation ---
Date of Consultation October 01, 2022 Assessment & Plan (1) Acute on chronic heart failure with preserved ejection fraction (HFpEF): (2) Elevated troponin: (3) Thrombocytopenia: (4) Paroxysmal atrial fibrillation: (5) Fever: Plan Acute hypoxic respiratory failure. Sepsis. As per Hospitalist History of aortic stenosis status post AVR in September 2016, 23 mm Saint Db Epic Valve. Blood cultures pending. Acute on chronic heart failure, HFpEF. Continue cautious IV diuresis Hypokalemia. Supplement potassium orally. Uncontrolled hypertension. Resolved. Follow. Elevated troponin. EKG without acute changes. Echo without wall motion abnormalities, hyperdynamic LV systolic function. Demand ischemia. Conservative management. Paroxysmal atrial fibrillation. Continue metoprolol and amiodarone. S/p left atrial appendage ligation. Further recommendations pending the above, evaluation by Dr. Friedman, ongoing hospitalization. Supervising Physician Co-Signing Physician Notes 87-year-old female admitted with acute hypoxic respiratory failure and sepsis. Poor historian. Denies chest pain or shortness of breath at rest. Low-grade fever recorded overnight. Denies palpitations or lightheadedness. Telemetry reveals sinus rhythm in the 80s. PE: VSS. Gen: NAD, awake and alert. Cooperative. Heart: Regular rhythm, bradycardic, normal S1-S2, 2/6 systolic ejection murmur heard best at the right second intercostal space. Lungs: Rales at the bases bilateral. Extremities: Trace edema with stasis changes. A/P: Agree with above PA-C history, physical exam, assessment and plan. Continue cautious IV diuresis. Supplement electrolytes as indicated. Monitor daily weight, fluid balance, and electrolytes. Echocardiogram revealing bioprosthetic AVR with borderline elevated gradients. Bioprosthetic aortic valve leaflets appear to open normally without significant regurgitation. In regard to patient's history of paroxysmal atrial fibrillation, continue metoprolol and amiodarone. She is not anticoagulated due to history of left atrial appendage ligation. Further evaluation of leukocytosis, thrombocytopenia, fevers as per internal medicine. Blood and urine cultures pending. Serology for anaplasmosis negative. History of Present Illness Reason for Consultation: CHF decompensation Requesting Physician: Alek Attending Physician: Hipolito History of Present Illness Patient seen and examined at approximately 9:15 AM. No family members present at bedside. Patient does not appear to be a reliable source of information. She does not know what brought her to the hospital. She states "my mind is a little sleepy." Chart review reveals patient presented to the ER with nausea, gagging, generalized malaise and fatigue, fevers and chills, generally not feeling well. Patient describes being more short of breath and constipated despite eating Fiber One and taking Metamucil Gummies. The patient was hypertensive on presentation with initial blood pressure 176/88 then 185/79. She was febrile at 37.9 C. She was hypoxic with an SPO2 of 89%, resolving with 2 L/min via nasal cannula. Chest x-ray was interpreted by the radiologist as revealing cardiomeg delfino with moderate pulmonary edema. CT scan of the chest images are not available for review, without pneumonia per radiological interpretation. Interstitial thickening and mosaic attenuation observed, possibly reflecting fibrotic changes and small airways disease. CT of the abdomen pelvis revealed anasarca with mild peritoneal stranding possibly secondary to fluid overload. No acute abnormalities observed on the CT of the abdomen and pelvis per radiological interpretation. Labs with multiple abnormalities including pancytopenia, elevated procalcitonin (47.82)elevated D-dimer, mild hyponatremia, hypokalemia, mildly elevated high-sensitivity troponin I (20.3, 73.6, 61.2 pg/mL). COVID-negative. Influenza negative. RSV negative. Lyme screen negative. Patient received 20 mg IV furosemide and empiric cefepime in the ER followed by Ceftriaxone this morning. Blood and urine cultures pending. ROS: + Cough. + SOB. + Memory impairment. + Left lower extremity wound treated at the [facility]. Inactive. Originally from [place]. Lives in [place]. Daughter lives in [place] Past Medical and Surgical History Severe aortic valve stenosis status post minimally invasive aortic valve replacement with a 23 mm Saint Db epic valve, September 2016. Paroxysmal atrial fibrillation, prescribed metoprolol and amiodarone Status post left atrial appendage ligation with a 35 mm AtriCure Clip Chronic HFpEF Hypertension Dyslipidemia GERD Hiatal hernia status postrepair MGUS Diverticulosis Urge incontinence Degenerative disc disease History of nephrolithiasis status post removal Osteoarthritis Status post hysterectomy Status post lumbar spine intervention Status post left knee replacement Status post bilateral corneal transplant Family History: Noncontributory. Mother with breast cancer. Father with colon cancer. Social History: Non-smoker. Lives in [place]. Originally from [place]. Daughter in [place]. Allergies Allergy/AdvReac Type Severity Reaction Status Date / Time simvastatin AdvReac Severe ELEVATED Verified 09/30/22 18:21 LIVER ENZYMES oxaprozin AdvReac Intermediate MAKES FEEL Verified 09/30/22 18:21 DEPRESSED Home Medications Medication Instructions Recorded Confirmed Type magnesium oxide 500 mg tablet 500 mg PO QAM 07/15/20 09/30/22 History pravastatin 80 mg tablet 80 mg PO QAM 07/15/20 09/30/22 History prednisolone acetate 1 % eye 1 drp OPB TID 07/15/20 09/30/22 History drops,suspension sodium di- and 2 tab PO TID 07/15/20 09/30/22 History monophosphate-potassium phos monobasic 250 mg tablet (Phospha Neutral) solifenacin 5 mg tablet 5 mg PO QAM 07/15/20 09/30/22 History acetaminophen 500 mg tablet 1,000 mg PO BID PRN Pain 06/13/21 09/30/22 History (Tylenol Extra Strength) amiodarone 200 mg tablet 200 mg PO QAM 06/13/21 09/30/22 History ascorbic acid (vitamin C) 500 mg 500 mg PO QAM 06/13/21 09/30/22 History tablet (Vitamin C) ferrous sulfate 325 mg (65 mg 325 mg PO Q OTHER DAY 06/13/21 09/30/22 History iron) tablet (iron) furosemide 20 mg tablet 20 mg PO DIRECTED PRN Edema 06/13/21 09/30/22 History fexofenadine 180 mg tablet 180 mg PO HS 07/06/21 09/30/22 History peg 400-propylene glycol (PF) 0.4 1 drp ophthalmic (eye) QID PRN Dry 07/06/21 09/30/22 History %-0.3 % eye drops in a dropperette Eye(S) (Systane (PF)) metoprolol succinate 25 mg 12.5 mg PO QAM 08/07/21 09/30/22 History tablet,extended release 24 hr aspirin 81 mg tablet,delayed 81 mg PO DAILY 09/30/22 09/30/22 History release calcium carbonate 500 mg-vitamin 1 tab PO TID 09/30/22 09/30/22 History D3 10 mcg (400 unit) tablet (Calcium 500 + D) mirabegron 50 mg tablet,extended 50 mg PO QAM 09/30/22 09/30/22 History release 24 hr (Myrbetriq) potassium chloride 10 mEq 10 meq PO BID 09/30/22 09/30/22 History tablet,extended release(part/cryst) (Feliz M) Patient History Medical History Chronic diastolic CHF (congestive heart failure) GERD (gastroesophageal reflux disease) HLD (hyperlipidemia) HTN (hypertension) MGUS (monoclonal gammopathy of unknown significance) Paroxysmal atrial fibrillation Surgical History H/O: hysterectomy History of total knee arthroplasty S/P aortic valve replacement with bioprosthetic valve S/P repair of paraesophageal hernia Family History Other Cancer Diabetes Social History Smoking Status: Never smoker Second Hand Exposure: No; Do You Dip or Chew Tobacco: No; Tobacco Cessation Education Requested by Patient: No Hx Alcohol Use: No Hx Substance Use: No Preferred Language: Mohawk Communication Ability: Effective Visual Impairment: Severely Limited Hearing Ability: Hard of Hearing Submarine Advisory Team Watch Officer Required: No Beliefs That Will Affect Care: None marital status: / Current Living Situation: Family Current Living Situation Comment: lives with daughter Other Information That Helps Us Care for You: Yes Feels Safe at Home: Yes Safety Concerns: Feels Safe At This Time Diet: regular caffeine: Yes during the past year weight has: remained stable Assistive Devices: Cane and Walker Assistive Devices Comment: rollator Review of Systems Review of Systems: A complete and accurate review of systems was unable to be obtained due to memory loss Physical Exam Physical Exam: General: Alert to person and place. Comfortable. Cooperative. Mildly dyspneic. HENT: Normocephalic. Atraumatic. Eyes: PER. Conjunctiva pink, sclera clear. Neck: + JVD + HJR. Heart: Regular at 60 bpm. Systolic murmur. No diastolic murmur. No rub. Lungs: Decreased. No wheeze. No Rales. Abdomen: +BS. Soft. Nontender. No masses or organomegaly. Extremities: Marked stasis changes. Varicosities. 1+ edema. No clubbing. No cyanosis. Healing wound on the right loo Limited neurological examination is without focal deficits. Pulses: radial=2/4, posterior tibial=1/4. Results & Data Vital Signs (Past 12 Hours) Vital Signs Temp Pulse Pulse Resp BP Pulse Ox O2 Del Method 10/01/22 09:10 56 L 115/66 10/01/22 03:00 37 C 57 L 18 105/61 97 Nasal Cannula 10/01/22 01:41 68 O2 Flow Rate 10/01/22 09:10 10/01/22 03:00 4 10/01/22 01:41 Laboratory Results Cardiac Enzymes 09/30/22 09/30/22 10/01/22 Range/Units 17:07 22:55 05:52 AST 27 21 (13-39) U/L Troponin I High Sens 20.3 H 73.6 H* D 61.2 H* D (0-14) pg/ml B-Natriuretic Peptide (0-100) pg/ml 10/01/22 Range/Units 09:18 AST (13-39) U/L Troponin I High Sens (0-14) pg/ml B-Natriuretic Peptide 2382 H (0-100) pg/ml Coagulation 10/01/22 Range/Units 09:18 B-Natriuretic Peptide 2382 H (0-100) pg/ml CBC 09/30/22 09/30/22 10/01/22 Range/Units 17:07 20:52 05:52 WBC 2.80 L 17.19 H D (4.8-10.8) K/ul RBC 3.48 L 2.91 L (4.20-5.40) M/uL Hgb 11.8 L 9.8 L (12.0-16.0) g/dl Hct 36.0 L 29.4 L (37.0-47.0) % Plt Count Cancelled 56 L (130-400) K/uL Neut # (Auto) 2.66 15.11 H (1.40-6.50) K/uL Lymph # (Auto) 0.12 L 0.80 L (1.2-3.4) K/uL [place] # (Auto) 0.02 L 1.09 H (0.11-0.59) K/uL Eos # (Auto) 0.00 0.01 (0-0.50) K/uL Baso # (Auto) 0.00 0.05 (0-0.2) K/uL 10/01/22 Range/Units 09:18 WBC 15.92 H (4.8-10.8) K/ul RBC 2.90 L (4.20-5.40) M/uL Hgb 9.9 L (12.0-16.0) g/dl Hct 29.8 L (37.0-47.0) % Plt Count 59 L (130-400) K/uL Neut # (Auto) (1.40-6.50) K/uL Lymph # (Auto) (1.2-3.4) K/uL [place] # (Auto) (0.11-0.59) K/uL Eos # (Auto) (0-0.50) K/uL Baso # (Auto) (0-0.2) K/uL Comprehensive Metabolic Panel 09/30/22 10/01/22 Range/Units 17:07 05:52 Sodium 134 L 137 (136-145) mmol/L Potassium 3.2 L 3.5 (3.5-5.1) mmol/L Chloride 104 107 (98-107) mmol/L Carbon Dioxide 19 L 22 (21-32) mmol/L BUN 15 18 (6-23) mg/dl Creatinine 0.65 0.74 (0.6-1.2) mg/dl Glucose 77 90 (70-99(Fasting)) mg/dl Calcium 8.6 7.7 L (8.6-10.3) mg/dl Direct Bilirubin 0.4 H (0-0.2) mg/dl AST 27 21 (13-39) U/L ALT 22 17 (7-52) U/L Alkaline Phosphatase 158 H 113 H (34-104) U/L Total Protein 10.1 H 8.4 H (6.0-8.3) gm/dl Albumin 2.9 L 2.4 L (3.4-5.0) gm/dl Intake and Output 09/30/22 10/01/22 10/01/22 22:59 06:59 14:59 Intake Total 500 / 620 120 / 620 50 / 50 Output Total 500 / 600 100 / 600 Balance 0 / 20 20 / 20 50 / 50 Intake: IV 500 / 500 50 / 50 Sodium Chloride 0.9% 500 ml @ 500 / 500 999 mls/hr IV .Q31M [facility] Rx#: [id number] cefTRIAXone SODIUM 1,000 mg In 50 / 50 Dextrose 5% Ad-Van 50 ml @ 100 mls/hr IV Q24H [facility] Rx#:[id number] Oral 120 / 120 Output: Urine Amount (Catheter) 500 / 600 100 / 600 External 100 / 100 Fem Cath 500 / 500 Other: Weight 68.039 kg Weight Measurement Method Built in [facility] Diagnostic Findings October 01, 2022 TTE interpretation summary ([facility], Dr. Friedman): Technically adequate. Ejection fraction 65 to 70%. Moderate concentric LVH. Moderately dilated RV. RV systolic function qualitatively normal. Severely dilated left a trium. Moderately dilated right atrium. Bioprosthetic aortic valve leaflets appeared mildly thickened, opening normally. Elevated systolic gradient observed in the setting of moderate LVH and hyperdynamic LV function. No significant stenosis with a dimensionless index of 0.52. No significant bioprosthetic aortic valve regurgitation. Compared to the study dated July 16, 2020, bioprosthetic aortic valve systolic gradient has increased. Moderate to severe tricuspid regurgitation with moderate pulm hypertension now present. Continuous telemetry monitoring personally reviewed. Patient maintaining sinus rhythm/sinus bradycardia. First-degree heart block. No atrial fibrillation.
[2022-10-01] MEDS ORDERED: POTASSIUM CHLORIDE CRTAB 20 MEQ TABCR PO ONE (12:28)
[2022-10-01] MEDS ORDERED: OPTIRAY 320 125ml IV ONE (13:47)
--- NOTE | 2022-10-01 14:04 | CT Scan Report ---
CT angio chest PE protocol CT DOSE: 646.14 mGy.cm HISTORY: 87 years-old Female with PE. Acute shortness of breath TECHNIQUE: Multiple CTA images of the chest were obtained after the intravenous administration of 120 ml Optiray. Coronal and sagittal MIPS were obtained from the axial data set and were submitted for review. All measurements were obtained according to NASCET criteria. A dose lowering technique was u tilized adhering to the principles of ALARA. COMPARISON: 09/30/2022 FINDINGS: CTA: Moderate to marked cardiomegaly. Extensive coronary artery calcifications. No pericardial effusion. A therosclerosis of the thoracic aorta without aneurysm. Descending thoracic aortic tortuosity. Mild di lation of the main pulmonary artery, 3.4 cm. No pulmonary emboli identified. Left atrial exclusion de vice. CT CHEST: Heterogeneity of the thyroid. No lymphadenopathy. Trace left and small right pleural effusions. No pn eumothorax. Interstitial pulmonary edema. Intermixed groundglass densities with mosaic attenuation tan s progressed from prior. Mild dependent right greater than left bibasilar opacities. No suspicious pu lmonary nodules or masses. 3 mm fissural nodule the right lung on image 87 suggestive of a benign lym ph node. Central airways are patent. Generalized body wall edema. 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 Trace upper abdominal ascites. No acute fracture. Degenerative changes of the shoulders and spine. IMPRESSION: 1. No pulmonary emboli identified. 2. Cardiomegaly with interstitial and alveolar pulmonary edema, trace left and small right pleural ef fusions. Anasarca with trace upper abdominal ascites compatible with fluid overload. 3. Mild right basilar predominant opacities suggestive of atelectasis. ACT 112: Negative or not required by law. The above report was generated using voice recognition software. It may contain grammatical, syntax o r spelling errors. Electronically signed by: Miguel Angel Cooper M.D. 10/01/2022 2:02 PM
--- NOTE | 2022-10-01 15:16 | Electrocardiogram Report ---
Test Reason : Blood Pressure : / mmHG Vent. Rate : 087 BPM Atrial Rate : 087 BPM P-R Int : 202 ms QRS Dur : 176 ms QT Int : 402 ms P-R-T Axes : 075 -52 112 degrees QTc Int : 483 ms Sinus rhythm with occasional , and consecutive Premature ventricular complexes Right bundle branch block Left anterior fascicular block Bifascicular block Left ventricular hypertrophy with repolarization abnormality ( R in aVL ) Abnormal ECG When compared with ECG of 14-AUG-2021 15:25, Premature ventricular complexes are now Present Premature atrial complexes are no longer Present Vent. rate has increased BY 32 BPM Confirmed by Jozef Shields ([id number]) on 10/01/2022 3:15:38 PM Referred By: REFERRED SELF Confirmed By:Jozef Shields
[2022-10-01] MEDS ORDERED: FUROSEMIDE 40 MG/4 ML VIAL IV ONE (16:34)
--- NOTE | 2022-10-01 16:49 | Hospitalist Progress Note ---
Date of Service October 01, 2022 Assessment & Plan (1) Hypoxia: (2) Acute on chronic heart failure with preserved ejection fraction (HFpEF): (3) Generalized weakness: (4) Hypokalemia: (5) Elevated troponin: (6) Paroxysmal atrial fibrillation: (7) MGUS (monoclonal gammopathy of unknown significance): Plan This is an 87-year-old female who has significant past medical history of paroxysmal atrial fibrillation s/p left atrial appendage ligation, chronic HFpEF, history of aortic valve replacement, GERD, hyperlipidemia, urge incontinence, MGUS who presents to ED secondary to weakness and ill feeling x2 days. WBC 17, procal 47, Does not meet SIRS criteria. CT with no PNA. Lym e/anaplasma negative. No vegetations mentioned in echo. Acute hypoxic respiratory failure- likely from decompensated CHF. CTA chest with no PE, PNA but fluid overload. Covid negative. - Continue supplemental oxygen. Wean off as tolerated Acute decompensated HFpEF- BNP elevated, CT and CXR with pulm edema. Echo with normal EF, mod-sev TR with mod pulm HTN - She did not diurese well with 20 mg iv lasix. Will give a dose of 40 mg iv lasix and monitor response. Further dosing per response. - Cardio following UTI- urine clx with GNB. WBC 17, procal 47 - On empiric ceftriaxone pending final urine and blood clx results Thrombocytopenia- OP labs show thrombocytopenia this year, currently in upper 50s and stable. No bleeding. Elevated troponin- trop mildly elevated, trend flat. Related to above. no need for further trend. No CP. Bioprosthetic AVR in situ- Echo reviewed. Bioprosth aortic valve leaflets mildly thickened however open normally, bioprosth AV systolic gradient has increased but no significant AV regurgitation. Hypokalemia- Resolved with repletion. Paroxysmal atrial fibrillation- s/p BECKY ligation and not on anticoag anymore. NSR, on metoprolol and amiodarone Hx of night terrors/Delirium pt daughter states has happened during previous hospital stays she is only a few miles away and able to come sit with patient overnight if this occurs as this has helped in past Hx of MGUS pt with elevated total protein 10.1 with elevated globulin gap follow up on SPEP/UPEP pt will need out heme f/u Elevated D dimer- CT PE negative. US LE pending. DVT ppx: scd. consider sc heparin in am if Plt counts stable to improving. Dispo- Continue current level of care. Hypoxic on 5 L NC, getting diuresis, sepsis work up in progress. PT OT vida. Pt daughter is Nicole Salazar, , and she would like contacted if she is not in room regarding physician encounter due to mother being forgetful Admission and Anticipated Discharge Date Admission Date: September 30, 2022 Subjective Patient was seen and examined at bedside. She feels about the same. No fever, chills, N/V/ CP. No skin rash. No dysuria or diarrhea. Review of Systems Review of Systems: All systems reviewed & are unremarkable except as noted in Subjective Physical Exam Physical Exam: General: Sitting comfortably in bed, not in acute distress, on NC HEENT: EOMI, LISA, MMM Chest: Fair breath sounds bilaterally with basilar rales CVS: Regular rate and rhythm, normal heart sounds, no murmur Abdomen: Soft, non tender, not distended, normal bowel sounds Neuro: Awake, alert, oriented, conversing well, non focal Extremities: No cyanosis, clubbing, trace edema Results & Data Results & Data Vital Signs (Past 12 Hours) Vital Signs Temp Pulse Pulse Resp BP Pulse Ox Pulse Ox 10/01/22 15:36 36.9 C 56 L 17 119/65 99 10/01/22 06:30 61 10/01/22 11:31 36.8 C 56 L 17 107/50 L 98 10/01/22 11:18 96 10/01/22 09:10 56 L 115/66 O2 Del Method O2 Flow Rate O2 Flow Rate 10/01/22 15:36 Nasal Cannula 5 10/01/22 06:30 10/01/22 11:31 Nasal Cannula 5 10/01/22 11:18 4 10/01/22 09:10 Laboratory Results Short CBC 09/30/22 09/30/22 10/01/22 Range/Units 17:07 20:52 05:52 WBC 2.80 L 17.19 H D (4.8-10.8) K/ul Hgb 11.8 L 9.8 L (12.0-16.0) g/dl Hct 36.0 L 29.4 L (37.0-47.0) % Plt Count Cancelled 56 L (130-400) K/uL 10/01/22 Range/Units 09:18 WBC 15.92 H (4.8-10.8) K/ul Hgb 9.9 L (12.0-16.0) g/dl Hct 29.8 L (37.0-47.0) % Plt Count 59 L (130-400) K/uL BMP 09/30/22 10/01/22 17:07 05:52 Sodium 134 L 137 Potassium 3.2 L 3.5 Chloride 104 107 Carbon Dioxide 19 L 22 BUN 15 18 Creatinine 0.65 0.74 Glucose 77 90 Calcium 8.6 7.7 L Cardiac Enzymes 09/30/22 Range/Units 17:07 Total Creatine Kinase 75 (26-192) U/L Liver Function 09/30/22 10/01/22 Range/Units 17:07 05:52 Total Bilirubin 1.7 H 1.0 D (0.2-1.0) mg/dl Direct Bilirubin 0.4 H (0-0.2) mg/dl AST 27 21 (13-39) U/L ALT 22 17 (7-52) U/L Alkaline Phosphatase 158 H 113 H (34-104) U/L Albumin 2.9 L 2.4 L (3.4-5.0) gm/dl Urine 09/30/22 Range/Units 21:01 Urine Color Yellow Urine Appearance Cloudy A (Clear) Urine pH 7.5 (4.5-7.5) Ur Specific [place] 1.009 (1.000-1.030) Urine Protein 2+ H (Negative) Urine Glucose (UA) Negative (Negative) Diagnostic Findings Chest CTA 10/01/22 11:15 CT angio chest PE protocol CT DOSE: 646.14 mGy.cm HISTORY: 87 years-old Female with PE. Acute shortness of breath TECHNIQUE: Multiple CTA images of the chest were obtained after the intravenous administration of 120 ml Optiray. Coronal and sagittal MIPS were obtained from the axial data set and were submitted for review. All measurements were obtained according to NASCET criteria. A dose lowering technique was utilized adhering to the principles of ALARA. COMPARISON: 09/30/2022 FINDINGS: CTA: Moderate to marked cardiomegaly. Extensive coronary artery calcifications. No pericardial effusion. Atherosclerosis of the thoracic aorta without aneurysm. Descending thoracic aortic tortuosity. Mild dilation of the main pulmonary artery, 3.4 cm. No pulmonary emboli identified. Left atrial exclusion device. CT CHEST: Heterogeneity of the thyroid. No lymphadenopathy. Trace left and small right pleural effusions. No pneumothorax. Interstitial pulmonary edema. Intermixed groundglass densities with mosaic attenuation has progressed from prior. Mild dependent right greater than left bibasilar opacities. No suspicious pulmonary nodules or masses. 3 mm fissural nodule the right lung on image 87 suggestive of a benign lymph node. Central airways are patent. Generalized body wall edema. 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 Trace upper abdominal ascites. No acute fracture. Degenerative changes of the shoulders and spine. IMPRESSION: 1. No pulmonary emboli identified. 2. Cardiomegaly with interstitial and alveolar pulmonary edema, trace left and small right pleural effusions. Anasarca with trace upper abdominal ascites compatible with fluid overload. 3. Mild right basilar predominant opacities suggestive of atelectasis. ACT 112: Negative or not required by law. The above report was generated using voice recognition software. It may contain grammatical, syntax or spelling errors. Electronically signed by: Miguel Angel Cooper M.D. 10/01/2022 2:02 PM Medications Administered Current Inpatient Medications Acetaminophen (Acetaminophen 325 Mg Tab) 650 mg PO Q4H PRN PRN Reason: Pain or Fever Stop: 10/30/22 22:25 Al Hydrox/Mg Hydrox/Simethicone (Aluminum/Magnesium Susp 30 Ml Udc) 15 ml PO Q4H PRN PRN Reason: Dyspepsia Stop: 10/30/22 22:25 Amiodarone HCl (Amiodarone 200 Mg Tab) 200 mg PO QAM [facility] Stop: 10/31/22 08:59 Last Admin: 10/01/22 08:59 Dose: 200 mg Artificial Tears (Artificial Tears) 1 drops OP QID PRN PRN Reason: Dry Eye(S) Stop: 10/30/22 22:36 Aspirin (Aspirin 81 Mg Ectab) 81 mg PO DAILY [facility] Stop: 10/31/22 08:59 Last Admin: 10/01/22 09:00 Dose: 81 mg Calcium/Vitamin D (Calcium 600mg + Vit D 400 Iu Tab) 1 tab PO TID [facility] Stop: 10/30/22 22:25 Last Admin: 10/01/22 14:43 Dose: 1 tab Ferrous Sulfate (Ferrous Sulfate 325 Mg Tab) 325 mg PO Q2D@0900 [facility] Stop: 10/31/22 08:59 Last Admin: 10/01/22 09:00 Dose: 325 mg Fexofenadine HCl (Fexofenadine Hcl 180 Mg Tab) 180 mg PO HS [facility] Stop: 10/30/22 22:25 Last Admin: 09/30/22 23:24 Dose: 180 mg Furosemide (Furosemide Inj 20 Mg/2 Ml Vial) 20 mg IV DAILY [facility] Stop: 10/31/22 08:59 Last Admin: 10/01/22 09:00 Dose: 20 mg Ceftriaxone Sodium 1,000 mg/ (Dextrose) 50 mls @ 100 mls/hr IV Q24H [facility]; Protocol Stop: 10/06/22 07:59 Last Infusion: 10/01/22 09:10 Dose: Infused Magnesium Hydroxide (Magnesium Hydroxide Susp 30 Ml Udc) 30 ml PO Q12H PRN PRN Reason: Constipation Stop: 10/30/22 22:25 Magnesium Oxide (Magnesium Oxide 400 Mg Tab) 400 mg PO QAM [facility] Stop: 10/31/22 08:59 Last Admin: 10/01/22 09:00 Dose: 400 mg Metoprolol Succinate (Metoprolol Succ 25mg Ext Rel Tab) 12.5 mg PO QAM [facility] Stop: 10/31/22 08:59 Last Admin: 10/01/22 08:59 Dose: 12.5 mg Ondansetron HCl (Ondansetron Inj 2 Mg/Ml 2 Ml Vial) 4 mg IV Q6H PRN PRN Reason: Nausea Stop: 10/30/22 22:25 Oxybutynin Chloride (Oxybutynin Chloride Xl 5 Mg Tabcr) 5 mg PO QAM [facility] Stop: 10/31/22 08:59 Last Admin: 10/01/22 08:58 Dose: 5 mg Polyethylene Glycol (Polyethylene (Miralax) 17 Gm Pack) 17 gm PO DAILY PRN PRN Reason: Constipation Stop: 10/30/22 22:25 Potassium Chloride (Potassium Chloride 10 Meq Tabcr) 10 meq PO BID [facility] Stop: 10/31/22 08:59 Last Admin: 10/01/22 08:59 Dose: 10 meq Potassium Phosphate (Pot Phosphate Monobasic W/ Sod Tab) 2 tab PO TID [facility] Stop: 10/30/22 22:25 Last Admin: 10/01/22 14:43 Dose: 2 tab Pravastatin Sodium (Pravastatin Sod 40 Mg Tab) 80 mg PO QAM [facility] Stop: 10/31/22 08:59 Last Admin: 10/01/22 08:58 Dose: 80 mg Prednisolone Acetate (Prednisolone Acetate 1% Op Susp 5 Ml Btl) 1 drops OPB TID [facility] Stop: 10/30/22 22:25 Last Admin: 10/01/22 14:43 Dose: 1 drops Vibegron (Vibegron 75 Mg Tab) 75 mg PO DAILY [facility] Stop: 10/31/22 08:59 Last Admin: 10/01/22 09:00 Dose: 75 mg
--- NOTE | 2022-10-01 18:07 | Ultrasound Report ---
ULTRASOUND BILATERAL LOWER EXTREMITY VENOUS CLINICAL HISTORY: Elevated d-dimer. COMPARISON STUDY: Left lower extremity venous ultrasound dated 08/02/2016 TECHNIQUE: Real-time, grayscale, and color Doppler sonography of the deep veins of the right and left lower extremity was performed from the inguinal crease to the calf. Compression and augmentation wer e utilized. FINDINGS: There is no sonographic evidence of deep venous thrombosis identified in the right or left lower extremity. The common femoral, superficial femoral, and popliteal veins are patent and normally compressible bilaterally. The greater saphenous vein and the profunda femoris vein at the junction w ith the common femoral vein are clear in both legs. The visualized calf veins are patent bilaterally. IMPRESSION: There is no sonographic evidence of deep venous thrombosis identified in the right or lef t lower extremity. ACT 112: Negative or not required by law. Electronically signed by: Guillermo Paniagua M.D. 10/01/2022 6:05 PM
[2022-10-01] MEDS: FEXOFENADINE HCL 180 MG TAB PO SCH (19:50)
[2022-10-02] MEDS: cefTRIAXone SODIUM 1,000 MG in DEXTROSE 5% AD-VAN 50 ML IV SCH (07:36)
[2022-10-02 07:43] LABS: Hematocrit (blood only) 29.8 % (37.0-47.0); Hemoglobin 9.8 g/dl (12.0-16.0); Mean Corpuscular Hemoglobin 33.7 pg (25.0-34.0); Mean Corpuscular Hgb Conc 32.9 g/dL (32.0-36.0); Mean Corpuscular Volume 102.4 fL (80.0-100.0); Platelet Count 61 K/uL (130-400); RDW Standard Deviation 59.8 fL (36.4-46.3); Red Blood Count 2.91 M/uL (4.20-5.40); White Blood Count 10.05 K/ul (4.8-10.8)
[2022-10-02 08:07] LABS: BUN Creatinine Ratio 28.9 (10-20); Creatinine Clr Calc Pharmacy 48.5 ml/min; Est GFR (African American) 82.9 ml/min; Est GFR (Non-African American) 71.5 ml/min; Magnesium 1.9 mg/dl (1.7-2.4); Phosphorus 3.4 mg/dl (2.5-4.9); Potassium 3.9 mmol/L (3.5-5.1)
[2022-10-02] MEDS: ASPIRIN 81 MG ECTAB PO SCH (09:37)
[2022-10-02] MEDS: POT PHOSPHATE MONOBASIC W/ SOD TAB PO SCH ×3 (09:37→20:39)
[2022-10-02] MEDS: AMIODARONE 200 MG TAB PO SCH (09:37)
[2022-10-02] MEDS: POTASSIUM CHLORIDE 10 MEQ TABCR PO SCH ×2 (09:37→20:40)
[2022-10-02] MEDS: OXYBUTYNIN CHLORIDE XL 5 MG TABCR PO SCH (09:37)
[2022-10-02] MEDS: VIBEGRON 75 MG TAB PO SCH (09:38)
[2022-10-02] MEDS: MAGNESIUM OXIDE 400 MG TAB PO SCH (09:38)
[2022-10-02] MEDS: prednisoLONE acetate 1% OP SUSP 5 ML BTL OPB SCH ×3 (09:38→20:42)
[2022-10-02] MEDS: PRAVASTATIN SOD 40 MG TAB PO SCH (09:38)
[2022-10-02] MEDS: CALCIUM 600MG + VIT D 400 IU TAB PO SCH ×3 (09:38→20:38)
[2022-10-02] MEDS: METOPROLOL SUCC 25MG EXT REL TAB PO SCH (09:39)
[2022-10-02] MEDS: FUROSEMIDE INJ 20 MG/2 ML VIAL IV SCH ×2 (09:40→14:10)
--- NOTE | 2022-10-02 12:09 | Hospitalist Progress Note ---
Date of Service October 02, 2022 Assessment & Plan (1) Hypoxia: (2) Acute on chronic heart failure with preserved ejection fraction (HFpEF): (3) Generalized weakness: (4) Hypokalemia: (5) Elevated troponin: (6) Paroxysmal atrial fibrillation: (7) MGUS (monoclonal gammopathy of unknown significance): Plan This is an 87-year-old female who has significant past medical history of paroxysmal atrial fibrillation s/p left atrial appendage ligation, chronic HFpEF, history of aortic valve replacement, GERD, hyperlipidemia, urge incontinence, MGUS who presents to ED secondary to weakness and ill feeling x2 days. WBC 17, procal 47, Does not meet SIRS criteria. CT with no PNA. Lym e/anaplasma negative. No vegetations mentioned in echo. Acute hypoxic respiratory failure- likely from decompensated CHF. CTA chest with no PE, PNA but fluid overload. Covid negative. - Continue supplemental oxygen. Wean off as tolerated Acute decompensated HFpEF- BNP elevated, CT and CXR with pulm edema. Echo with normal EF, mod-sev TR with mod pulm HTN -increase diuretics to 20 mg twice daily. -Strict input/output monitoring -Discussed with Dr. Meyer from cardiology. UTI- urine clx with E. coli. Sensitive to ceftriaxone. Labs reviewed; leukocytosis resolved. blood culture no growth till date. Thrombocytopenia- OP labs show thrombocytopenia this year, currently in upper 50s and stable. No bleeding. Elevated troponin- trop mildly elevated, trend flat. Related to above. no need for further trend. No CP. Bioprosthetic AVR in situ- Echo reviewed. Bioprosth aortic valve leaflets mildly thickened however open normally, bioprosth AV systolic gradient has increased but no significant AV regurgitation. Hypokalemia- Resolved with repletion. Paroxysmal atrial fibrillation- s/p BECKY ligation and not on anticoag anymore. NSR, on metoprolol and amiodarone Hx of night terrors/Delirium pt daughter states has happened during previous hospital stays she is only a few miles away and able to come sit with patient overnight if this occurs as this has helped in past Hx of MGUS pt with elevated total protein 10.1 with elevated globulin gap follow up on SPEP/UPEP pt will need out heme f/u Elevated D dimer- CT PE negative. US LE pending. DVT ppx: scd now given thrombocytopenia. Dispo- Continue current level of care. Hypoxic on 3 L NC, getting diuresis, sepsis work up in progress. PT OT vida. Discussed with her daughters over the phone at bedside. Answered questions/queries. Time spent evaluating patient, direct bedside care, chart review, placing orders, interpretation of diagnostic studies, discussion with consultants, patient, and family members, as well as other required patient management activities is 60 minutes. Please note the above document was generated using voice recognition software. It may contain grammatical, syntax or spelling errors. Any formal questions or concerns about the content, text or information contained within the body of this dictation should be directly addressed to the provider for clarification Admission and Anticipated Discharge Date Admission Date: September 30, 2022 Subjective Patient seen and examined at bedside. She is sitting up on the chair comfortably; not in distress. Reports that she gets short of breath on movement. Comfortable while resting. Review of Systems Review of Systems: All systems reviewed & are unremarkable except as noted in Subjective Physical Exam Physical Exam: General: Sitting comfortably in bed, not in acute distress, on NC HEENT: EOMI, LISA, MMM Chest: Fair breath sounds bilaterally with basilar rales CVS: Regular rate and rhythm, normal heart sounds, no murmur Abdomen: Soft, non tender, not distended, normal bowel sounds Neuro: Awake, alert, oriented, conversing well, non focal Extremities: No cyanosis, clubbing, trace edema Results & Data Results & Data Vital Signs (Past 12 Hours) Vital Signs Temp Pulse Pulse Resp BP Pulse Ox O2 Del Method 10/02/22 11:13 36.8 C 53 L 18 104/55 L 98 Nasal Cannula 10/02/22 10:00 Nasal Cannula 10/02/22 10:12 95 10/02/22 07:57 36.8 C 63 18 145/69 H 92 Nasal Cannula 10/02/22 06:00 63 10/02/22 03:56 36.7 C 64 18 161/80 H 94 Nasal Cannula O2 Flow Rate 10/02/22 11:13 3 10/02/22 10:00 3.5 10/02/22 10:12 10/02/22 07:57 4 10/02/22 06:00 10/02/22 03:56 4 Laboratory Results Laboratory Results WBC 10.05 K/ul (4.8-10.8) 10/02/22 06:30 RBC 2.91 M/uL (4.20-5.40) L 10/02/22 06:30 Hgb 9.8 g/dl (12.0-16.0) L 10/02/22 06:30 Hct 29.8 % (37.0-47.0) L 10/02/22 06:30 MCV 102.4 fL (80.0-100.0) H 10/02/22 06:30 MCH 33.7 pg (25.0-34.0) 10/02/22 06:30 MCHC 32.9 g/dL (32.0-36.0) 10/02/22 06:30 RDW Std Deviation 59.8 fL (36.4-46.3) H 10/02/22 06:30 RDW Coeff of Tung 16.0 % (11.5-14.5) H 10/02/22 06:30 Plt Count 61 K/uL (130-400) L 10/02/22 06:30 MPV 11.0 fL (9.4-12.4) 10/02/22 06:30 Immature Gran % (Auto) 0.8 % 10/01/22 05:52 Neut % (Auto) 87.8 % 10/01/22 05:52 Lymph % (Auto) 4.7 % 10/01/22 05:52 [place] % (Auto) 6.3 % 10/01/22 05:52 Eos % (Auto) 0.1 % 10/01/22 05:52 Baso % (Auto) 0.3 % 10/01/22 05:52 Neut # (Auto) 15.11 K/uL (1.40-6.50) H 10/01/22 05:52 Lymph # (Auto) 0.80 K/uL (1.2-3.4) L 10/01/22 05:52 [place] # (Auto) 1.09 K/uL (0.11-0.59) H 10/01/22 05:52 Eos # (Auto) 0.01 K/uL (0-0.50) 10/01/22 05:52 Baso # (Auto) 0.05 K/uL (0-0.2) 10/01/22 05:52 Immature Gran # (Auto) 0.13 K/uL (0.01-0.20) 10/01/22 05:52 Platelet Estimate Cancelled 09/30/22 20:52 Plt Count ,Citrate 43 K/uL (130-400) L 09/30/22 20:57 D-Dimer 5970 ug/L FEU (0-500) H* 10/01/22 09:18 Sodium 136 mmol/L (136-145) 10/02/22 06:30 Potassium 3.9 mmol/L (3.5-5.1) 10/02/22 06:30 Chloride 107 mmol/L (98-107) 10/02/22 06:30 Carbon Dioxide 23 mmol/L (21-32) 10/02/22 06:30 Anion Gap 6 (3-11) 10/02/22 06:30 BUN 22 mg/dl (6-23) 10/02/22 06:30 Creatinine 0.76 mg/dl (0.6-1.2) 10/02/22 06:30 Est Cr Clr Drug Dosing 48.5 ml/min 10/02/22 06:30 Est GFR ( Amer) 82.9 ml/min 10/02/22 06:30 Est GFR (Non-Af Amer) 71.5 ml/min 10/02/22 06:30 BUN/Creatinine Ratio 28.9 (10-20) H 10/02/22 06:30 Glucose 78 mg/dl (70-99(Fasting)) 10/02/22 06:30 Calcium 8.0 mg/dl (8.6-10.3) L 10/02/22 06:30 Phosphorus 3.4 mg/dl (2.5-4.9) D 10/02/22 06:30 Magnesium 1.9 mg/dl (1.7-2.4) 10/02/22 06:30 Total Bilirubin 1.0 mg/dl (0.2-1.0) D 10/01/22 05:52 Direct Bilirubin 0.4 mg/dl (0-0.2) H 09/30/22 17:07 AST 21 U/L (13-39) 10/01/22 05:52 ALT 17 U/L (7-52) 10/01/22 05:52 Alkaline Phosphatase 113 U/L (34-104) H 10/01/22 05:52 Total Creatine Kinase 75 U/L (26-192) 09/30/22 17:07 Troponin I High Sens 61.2 pg/ml (0-14) H* D 10/01/22 05:52 B-Natriuretic Peptide 2382 pg/ml (0-100) H 10/01/22 09:18 Total Protein 8.4 gm/dl (6.0-8.3) H 10/01/22 05:52 Albumin 2.4 gm/dl (3.4-5.0) L 10/01/22 05:52 Globulin 6.0 gm/dl (2.5-4.0) H 10/01/22 05:52 Albumin/Globulin Ratio 0.4 (0.9-2) L 10/01/22 05:52 Procalcitonin 47.82 ng/ml (0-0.5) H 10/01/22 09:18 Urine Color Yellow 09/30/22 21:01 Urine Appearance Cloudy (Clear) A 09/30/22 21:01 Urine pH 7.5 (4.5-7.5) 09/30/22 21:01 Ur Specific [place] 1.009 (1.000-1.030) 09/30/22 21:01 Urine Protein 2+ (Negative) H 09/30/22 21:01 Urine Glucose (UA) Negative (Negative) 09/30/22 21:01 Urine Ketones Negative (Negative) 09/30/22 21:01 Urine Blood 3+ (Negative) H 09/30/22 21:01 Urine Nitrite Negative (Negative) 09/30/22 21:01 Urine Bilirubin Negative (Negative) 09/30/22 21:01 Urine Urobilinogen Negative (Negative) 09/30/22 21:01 Ur Leukocyte Esterase Negative (Negative) 09/30/22 21:01 Urine WBC (Auto) 1-5 /hpf (0-5) 09/30/22 21:01 Urine RBC (Auto) >30 /hpf (0-4) H 09/30/22 21:01 U Hyaline Cast (Auto) 0 /lpf (0-5) 09/30/22 21:01 U Epithel Cells (Auto) 10-20 /lpf (0-5) H 09/30/22 21:01 Urine Bacteria (Auto) 3+ (Negative) H 09/30/22 21:01 Anaplasma Smear See Comment 09/30/22 20:57 Lyme Disease IgG Ab Negative (Negative) 09/30/22 17:07 Lyme Disease IgM Ab Negative (Negative) 09/30/22 17:07 SARS-CoV-2 (PCR) NEGATIVE (Negative) 09/30/22 18:07 Influenza Type A (PCR) Negative (Neg) 09/30/22 18:07 Influenza Type B (PCR) Negative (Neg) 09/30/22 18:07 RSV (RT-PCR) Negative (Neg) 09/30/22 18:07 Impressions Chest X-Ray 09/30/22 17:02 XR chest 1V portable CLINICAL HISTORY: weakness TECHNIQUE: Single frontal radiograph of the chest was obtained. Comparison: Comparison is made to chest radiograph 08/07/2021 FINDINGS: Median sternotomy wires are unchanged. Atrial appendage clip noted. Cardiomegaly is noted. The aortic arch is calcified. Prominence and cephalization of the vasculature is seen. No evidence of pleural effusion or pneumothorax. IMPRESSION: Cardiomegaly and moderate pulmonary edema. ACT 112: Negative or not required by law. Electronically signed by: Kenrick Acosta M.D. 09/30/2022 5:48 PM Abdomen/Pelvis CT 09/30/22 17:23 CT abd pelvis wo con CLINICAL HISTORY: nausea, dry heaving TECHNIQUE: Helical axial images of the abdomen and pelvis were obtained. Automated dose lowering techniques and/or adjustment according to patient size were utilized for this exam. This exam was performed without intravenous contrast. CT DOSE: 1444.28 mGy.cm COMPARISON: Comparison is made to CT abdomen pelvis 07/15/2020 FINDINGS: Lower chest: For findings above the diaphragm, please see CT chest performed same day. Liver: A right hepatic calcification is seen. Gallbladder and biliary tree: No calcified gallstones. Normal caliber wall. No intra- or extrahepatic biliary ductal dilation. Pancreas: Unremarkable, no focal lesions. Spleen: Unremarkable. 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 Kidneys and ureters: Unremarkable. Bladder: Unremarkable. Reproductive organs: Patient is status post hysterectomy. Bowel: Diverticulosis is seen without evidence of diverticulitis. The appendix is normal. Lymph nodes Retroperitoneal: Subcentimeter lymph nodes are noted. Pelvic: Unremarkable. Mesenteric: Unremarkable. Peritoneum: There is peritoneal stranding and a small amount of ascites. Vessels: Unremarkable. Abdominal wall: Fat and fluid containing umbilical hernia and bilateral inguinal hernias are seen. Body wall edema is noted. Bones: Degenerative changes in the visualized spine. IMPRESSION: Anasarca and mild peritoneal stranding noted which may be secondary to fluid overload. No acute abnormalities. ACT 112: Negative or not required by law. Electronically signed by: Kenrick Acosta M.D. 09/30/2022 6:[address] 09/30/22 17:34 CT chest diagnostic wo con CLINICAL HISTORY: eval for pneumonia TECHNIQUE: Multidetector row helical CT of the chest was performed. Coronal and sagittal reformations were obtained. Automated dose lowering techniques and/or adjustment according to patient size were utilized for this exam. Comparison: Comparison is made to CT chest 07/15/2020 FINDINGS: Lungs and pleura: Interlobular septal thickening is seen with mosaic attenuation. There is trace bilateral pleural effusion. Heart and pericardium: Cardiomegaly is seen with biatrial enlargement. Mitral annular calcification is noted. Vessels: Severe atherosclerotic changes in the aorta and coronary arteries. The pulmonary trunk measures 31 mm in diameter. Mediastinum and maurice: Subcentimeter lymph nodes are seen. Chest wall and lower neck: Unremarkable. Abdomen: For findings below the diaphragm, please refer to CT of the abdomen dated the same. Bones: Degenerative changes in the thoracic spine. IMPRESSION: No pneumonia is seen. Interstitial thickening and mosaic attenuation may reflect fibrotic changes and small airways disease. ACT 112: Negative or not required by law. Electronically signed by: Kenrick Acosta M.D. 09/30/2022 6:20 PM Chest CTA 10/01/22 11:15 CT angio chest PE protocol CT DOSE: 646.14 mGy.cm HISTORY: 87 years-old Female with PE. Acute shortness of breath TECHNIQUE: Multiple CTA images of the chest were obtained after the intravenous administration of 120 ml Optiray. Coronal and sagittal MIPS were obtained from the axial data set and were submitted for review. All measurements were obtained according to NASCET criteria. A dose lowering technique was utilized adhering to the principles of ALARA. COMPARISON: 09/30/2022 FINDINGS: CTA: Moderate to marked cardiomegaly. Extensive coronary artery calcifications. No pericardial effusion. Atherosclerosis of the thoracic aorta without aneurysm. Descending thoracic aortic tortuosity. Mild dilation of the main pulmonary artery, 3.4 cm. No pulmonary emboli identified. Left atrial exclusion device. CT CHEST: Heterogeneity of the thyroid. No lymphadenopathy. Trace left and small right pleural effusions. No pneumothorax. Interstitial pulmonary edema. Intermixed groundglass densities with mosaic attenuation has progressed from prior. Mild dependent right greater than left bibasilar opacities. No suspicious pulmonary nodules or masses. 3 mm fissural nodule the right lung on image 87 suggestive of a benign lymph node. Central airways are patent. Generalized body wall edema. 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 Trace upper abdominal ascites. No acute fracture. Degenerative changes of the shoulders and spine. IMPRESSION: 1. No pulmonary emboli identified. 2. Cardiomegaly with interstitial and alveolar pulmonary edema, trace left and small right pleural effusions. Anasarca with trace upper abdominal ascites compatible with fluid overload. 3. Mild right basilar predominant opacities suggestive of atelectasis. ACT 112: Negative or not required by law. The above report was generated using voice recognition software. It may contain grammatical, syntax or spelling errors. Electronically signed by: Miguel Angel Cooper M.D. 10/01/2022 2:02 PM Venous Doppler Study 10/01/22 14:07 ULTRASOUND BILATERAL LOWER EXTREMITY VENOUS CLINICAL HISTORY: Elevated d-dimer. COMPARISON STUDY: Left lower extremity venous ultrasound dated 08/02/2016 TECHNIQUE: Real-time, grayscale, and color Doppler sonography of the deep veins of the right and left lower extremity was performed from the inguinal crease to the calf. Compression and augmentation were utilized. FINDINGS: There is no sonographic evidence of deep venous thrombosis identified in the right or left lower extremity. The common femoral, superficial femoral, and popliteal veins are patent and normally compressible bilaterally. The greater saphenous vein and the profunda femoris vein at the junction with the common femoral vein are clear in both legs. The visualized calf veins are patent bilaterally. IMPRESSION: There is no sonographic evidence of deep venous thrombosis identified in the right or left lower extremity. ACT 112: Negative or not required by law. Electronically signed by: Guillermo Paniagua M.D. 10/01/2022 6:05 PM
--- NOTE | 2022-10-02 15:41 | Cardiology Progress Note ---
Date of Service October 02, 2022 Assessment & Plan (1) Acute on chronic heart failure with preserved ejection fraction (HFpEF): (2) Elevated troponin: (3) Thrombocytopenia: (4) Paroxysmal atrial fibrillation: (5) Fever: Plan Acute hypoxic respiratory failure. Sepsis. As per Hospitalist History of aortic stenosis status post AVR in September 2016, 23 mm Saint Db Epic Valve. Blood cultures pending. Acute on chronic heart failure, HFpEF. Continue cautious IV diuresis Hypokalemia. Supplement potassium orally. Uncontrolled hypertension. Resolved. Follow. Elevated troponin. EKG without acute changes. Echo without wall motion abnormalities, hyperdynamic LV systolic function. Demand ischemia. Conservative management. Paroxysmal atrial fibrillation. Continue metoprolol and amiodarone. S/p left atrial appendage ligation. Further recommendations pending the above, evaluation by Dr. Friedman, ongoing hospitalization. 10/02/2022 Patient improving with acute on chronic heart failure etiology multifactorial. Slowly diuresing would continue IV diuretics as ordered. Consider spironolactone Patient notes only using diuretic sporadically prehospital. Blood cultures negative for infection though urine culture positive We will continue as above and follow Admission and Anticipated Discharge Date Admission Date: September 30, 2022 Subjective Patient seen and examined, chart, medications, telemetry reviewed. Feels improved today sitting out of bed in chair. Less dyspneic. Still with oxygen requirements. Feels she has diuresed not easily measured Review of Systems Review of Systems: All systems reviewed & are unremarkable except as noted in Subjective Physical Exam Constitutional: WD/WN, vitals as above Eyes: PERRL, conjunctivae normal, anicteric sclerae ENMT: external ear and nose normal, oropharynx normal Neck: trachea midline, no thyromegaly Respiratory: Auscultation: + crackles Cardiovascular: Rate/Rhythm: regular rate and regular rhythm Heart Sounds: normal S1, normal S2 and + murmur (Grade 2 or 6 systolic) Extremities: + edema Results & Data Vital Signs (Past 12 Hours) Vital Signs Temp Pulse Pulse Resp BP Pulse Ox O2 Del Method 10/02/22 15:35 56 L 10/02/22 11:13 36.8 C 53 L 18 104/55 L 98 Nasal Cannula 10/02/22 10:00 Nasal Cannula 10/02/22 10:12 95 10/02/22 07:57 36.8 C 63 18 145/69 H 92 Nasal Cannula 10/02/22 06:00 63 10/02/22 03:56 36.7 C 64 18 161/80 H 94 Nasal Cannula O2 Flow Rate 10/02/22 15:35 10/02/22 11:13 3 10/02/22 10:00 3.5 10/02/22 10:12 10/02/22 07:57 4 10/02/22 06:00 10/02/22 03:56 4 Laboratory Results Laboratory Results - last 24 hr 10/02/22 10/02/22 06:30 06:30 WBC 10.05 RBC 2.91 L Hgb 9.8 L Hct 29.8 L MCV 102.4 H MCH 33.7 MCHC 32.9 RDW Std Deviation 59.8 H RDW Coeff of Tung 16.0 H Plt Count 61 L MPV 11.0 Sodium 136 Potassium 3.9 Chloride 107 Carbon Dioxide 23 Anion Gap 6 BUN 22 Creatinine 0.76 Est Cr Clr Drug Dosing 48.5 Est GFR ( Amer) 82.9 Est GFR (Non-Af Amer) 71.5 BUN/Creatinine Ratio 28.9 H Glucose 78 Calcium 8.0 L Phosphorus 3.4 D Magnesium 1.9
[2022-10-02] MEDS: FEXOFENADINE HCL 180 MG TAB PO SCH (20:39)
[2022-10-03 06:32] LABS: Basophils # (auto) 0.05 K/uL (0-0.2); Basophils % (auto) 0.8 %; Eosinophils # (auto) 0.18 K/uL (0-0.50); Hematocrit (blood only) 28.6 % (37.0-47.0); Hemoglobin 9.5 g/dl (12.0-16.0); Immature Granulocytes # (auto) 0.03 K/uL (0.01-0.20); Immature Granulocytes % (auto) 0.5 %; Lymphocytes # (auto) 0.75 K/uL (1.2-3.4); Lymphocytes % (auto) 12.5 %; Mean Corpuscular Hemoglobin 34.1 pg (25.0-34.0); Mean Corpuscular Hgb Conc 33.2 g/dL (32.0-36.0); Mean Corpuscular Volume 102.5 fL (80.0-100.0); Mean Platelet Volume 10.7 fL (9.4-12.4); Monocytes # (auto) 0.54 K/uL (0.11-0.59); Neutrophils # (auto) 4.45 K/uL (1.40-6.50); Neutrophils % (auto) 74.2 %; Platelet Count 64 K/uL (130-400); RDW Coefficient of Variation 15.4 % (11.5-14.5); RDW Standard Deviation 58.2 fL (36.4-46.3); Red Blood Count 2.79 M/uL (4.20-5.40)
[2022-10-03 06:47] LABS: Albumin Globulin Ratio 0.4 (0.9-2); Albumin Level 2.3 gm/dl (3.4-5.0); BUN Creatinine Ratio 30.6 (10-20); Bilirubin,Total 0.7 mg/dl (0.2-1.0); Calcium 7.9 mg/dl (8.6-10.3); Creatinine Clr Calc Pharmacy 59.3 ml/min; Est GFR (African American) 95.3 ml/min; Est GFR (Non-African American) 82.2 ml/min; Potassium 3.9 mmol/L (3.5-5.1); Total Protein 8.3 gm/dl (6.0-8.3)
[2022-10-03] MEDS: cefTRIAXone SODIUM 1,000 MG in DEXTROSE 5% AD-VAN 50 ML IV SCH (08:28)
[2022-10-03] MEDS: POT PHOSPHATE MONOBASIC W/ SOD TAB PO SCH ×3 (09:30→20:21)
[2022-10-03] MEDS: METOPROLOL SUCC 25MG EXT REL TAB PO SCH (09:30)
[2022-10-03] MEDS: CALCIUM 600MG + VIT D 400 IU TAB PO SCH ×3 (09:31→20:21)
[2022-10-03] MEDS: FERROUS SULFATE 325 MG TAB PO SCH (09:31)
[2022-10-03] MEDS: VIBEGRON 75 MG TAB PO SCH (09:33)
[2022-10-03] MEDS: AMIODARONE 200 MG TAB PO SCH (09:33)
[2022-10-03] MEDS: OXYBUTYNIN CHLORIDE XL 5 MG TABCR PO SCH (09:33)
[2022-10-03] MEDS: PRAVASTATIN SOD 40 MG TAB PO SCH (09:33)
[2022-10-03] MEDS: ASPIRIN 81 MG ECTAB PO SCH (09:33)
[2022-10-03] MEDS: POTASSIUM CHLORIDE 10 MEQ TABCR PO SCH (09:34)
[2022-10-03] MEDS: prednisoLONE acetate 1% OP SUSP 5 ML BTL OPB SCH ×3 (09:34→20:22)
[2022-10-03] MEDS: MAGNESIUM OXIDE 400 MG TAB PO SCH (09:34)
[2022-10-03] MEDS: FUROSEMIDE INJ 20 MG/2 ML VIAL IV SCH (09:34)
--- NOTE | 2022-10-03 10:05 | Cardiology Progress Note ---
Date of Service October 03, 2022 Assessment & Plan (1) Acute on chronic heart failure with preserved ejection fraction (HFpEF): (2) Elevated troponin: (3) Thrombocytopenia: (4) Paroxysmal atrial fibrillation: (5) Fever: Plan Acute hypoxic respiratory failure. Sepsis. As per Hospitalist History of aortic stenosis status post AVR in September 2016, 23 mm Saint Db Epic Valve. Blood cultures pending. Acute on chronic heart failure, HFpEF. Continue cautious IV diuresis Hypokalemia. Supplement potassium orally. Uncontrolled hypertension. Resolved. Follow. Elevated troponin. EKG without acute changes. Echo without wall motion abnormalities, hyperdynamic LV systolic function. Demand ischemia. Conservative management. Paroxysmal atrial fibrillation. Continue metoprolol and amiodarone. S/p left atrial appendage ligation. Further recommendations pending the above, evaluation by Dr. Friedman, ongoing hospitalization. 10/02/2022 Patient improving with acute on chronic heart failure etiology multifactorial. Slowly diuresing would continue IV diuretics as ordered. Consider spironolactone Patient notes only using diuretic sporadically prehospital. Blood cultures negative for infection though urine culture positive 10/03/2022 Continued cardiovascular improvement approaching euvolemia Discontinue IV furosemide Add oral spironolactone 12.5 mg daily, stop potassium replacement Macrocytic anemia with thrombocytopenia persist Admission and Anticipated Discharge Date Admission Date: September 30, 2022 Subjective Patient seen and examined, chart, medications, telemetry reviewed. Feels improved less lower extremity edema chronic stasis changes noted Physical Exam Physical Exam: General: Alert to person and place. Comfortable. Cooperative. Mildly dyspneic. HENT: Normocephalic. Atraumatic. Eyes: PER. Conjunctiva pink, sclera clear. Neck: + JVD + HJR. Heart: Regular at 60 bpm. Systolic murmur. No diastolic murmur. No rub. Lungs: Decreased. No wheeze. No Rales. Abdomen: +BS. Soft. Nontender. No masses or organomegaly. Extremities: Marked stasis changes. Varicosities. 1+ edema. No clubbing. No cyanosis. Healing wound on the right loo Limited neurological examination is without focal deficits. Pulses: radial=2/4, posterior tibial=1/4. Constitutional: WD/WN, vitals as above Eyes: PERRL, conjunctivae normal, anicteric sclerae ENMT: external ear and nose normal, oropharynx normal Neck: trachea midline, no thyromegaly Respiratory: Auscultation: + crackles Cardiovascular: Rate/Rhythm: regular rate and regular rhythm Heart Sounds: normal S1, normal S2 and + murmur (Grade 2 or 6 systolic) Extremities: + edema Results & Data Vital Signs (Past 12 Hours) Vital Signs Temp Pulse Pulse Resp BP Pulse Ox O2 Del Method 10/03/22 08:19 36.5 C 56 L 17 158/65 H 95 Nasal Cannula 10/03/22 06:00 56 L 10/03/22 03:11 36.6 C 56 L 18 125/67 96 Nasal Cannula 10/02/22 23:46 36.9 C 55 L 18 131/69 96 Nasal Cannula 10/02/22 23:11 56 L O2 Flow Rate 10/03/22 08:19 2.5 10/03/22 06:00 10/03/22 03:11 3 10/02/22 23:46 3 10/02/22 23:11 Laboratory Results Laboratory Results - last 24 hr 10/03/22 10/03/22 05:47 05:47 WBC 6.00 RBC 2.79 L Hgb 9.5 L Hct 28.6 L MCV 102.5 H MCH 34.1 H MCHC 33.2 RDW Std Deviation 58.2 H RDW Coeff of Tung 15.4 H Plt Count 64 L MPV 10.7 Immature Gran % (Auto) 0.5 Neut % (Auto) 74.2 Lymph % (Auto) 12.5 [place] % (Auto) 9.0 Eos % (Auto) 3.0 Baso % (Auto) 0.8 Neut # (Auto) 4.45 Lymph # (Auto) 0.75 L [place] # (Auto) 0.54 Eos # (Auto) 0.18 Baso # (Auto) 0.05 Immature Gran # (Auto) 0.03 Sodium 136 Potassium 3.9 Chloride 105 Carbon Dioxide 26 Anion Gap 5 BUN 19 Creatinine 0.62 Est Cr Clr Drug Dosing 59.3 Est GFR ( Amer) 95.3 Est GFR (Non-Af Amer) 82.2 BUN/Creatinine Ratio 30.6 H Glucose 80 Calcium 7.9 L Total Bilirubin 0.7 AST 16 ALT 16 Alkaline Phosphatase 108 H Total Protein 8.3 Albumin 2.3 L Globulin 6.0 H Albumin/Globulin Ratio 0.4 L
--- NOTE | 2022-10-03 11:13 | Hospitalist Progress Note ---
Date of Service October 03, 2022 Assessment & Plan (1) Hypoxia: (2) Acute on chronic heart failure with preserved ejection fraction (HFpEF): (3) Generalized weakness: (4) Hypokalemia: (5) Elevated troponin: (6) Paroxysmal atrial fibrillation: (7) MGUS (monoclonal gammopathy of unknown significance): Plan This is an 87-year-old female who has significant past medical history of paroxysmal atrial fibrillation s/p left atrial appendage ligation, chronic HFpEF, history of aortic valve replacement, GERD, hyperlipidemia, urge incontinence, MGUS who presents to ED secondary to weakness and ill feeling x2 days. WBC 17, procal 47, Does not meet SIRS criteria. CT with no PNA. Lym e/anaplasma negative. No vegetations mentioned in echo. Acute hypoxic respiratory failure- likely from decompensated CHF. CTA chest with no PE, PNA but fluid overload. Covid negative. - Continue supplemental oxygen. Wean off as tolerated. Discussed with nursing. Acute decompensated HFpEF- BNP elevated, CT and CXR with pulm edema. Echo with normal EF, mod-sev TR with mod pulm HTN Discussed with cardiology; discontinue IV Lasix. Started on spironolactone 12.5 once daily. UTI- urine clx with E. coli. Sensitive to ceftriaxone. Complete 5-day course. Labs reviewed; leukocytosis resolved. blood culture no growth till date. Thrombocytopenia- OP labs show thrombocytopenia this year, currently in upper 50s and stable. No bleeding. Elevated troponin- trop mildly elevated, trend flat. Related to above. no need for further trend. No CP. Bioprosthetic AVR in situ- Echo reviewed. Bioprosth aortic valve leaflets mildly thickened however open normally, bioprosth AV systolic gradient has increased but no significant AV regurgitation. Hypokalemia- Resolved with repletion. Paroxysmal atrial fibrillation- s/p BECKY ligation and not on anticoag anymore. NSR, on metoprolol and amiodarone Hx of night terrors/Delirium pt daughter states has happened during previous hospital stays she is only a few miles away and able to come sit with patient overnight if this occurs as this has helped in past Hx of MGUS pt with elevated total protein 10.1 with elevated globulin gap follow up on SPEP/UPEP pt will need out heme f/u Elevated D dimer- CT PE negative. US LE negative for DVT DVT ppx: scd now given thrombocytopenia. Dispo- Continue current level of care. Hypoxic on 2.5 L NC, getting diuresis, sepsis work up in progress. PT OT eval recommend SNF. Case management on board. Discussed with her daughters over the phone at bedside on 10/02. Answered questions/queries. Time spent evaluating patient, direct bedside care, chart review, placing orders, interpretation of diagnostic studies, discussion with consultants, patient, and family members, as well as other required patient management activities is 60 minutes. Please note the above document was generated using voice recognition software. It may contain grammatical, syntax or spelling errors. Any formal questions or concerns about the content, text or information contained within the body of this dictation should be directly addressed to the provider for clarification Admission and Anticipated Discharge Date Admission Date: September 30, 2022 Subjective Patient seen and examined at bedside. She is sitting up on the chair comfortably; reports that her shortness of breath has improved compared to admission. Afebrile overnight. Physical Exam Physical Exam: General: Sitting comfortably in bed, not in acute distress, on NC HEENT: EOMI, LISA, MMM Chest: Faint bibasilar crackles present. CVS: Regular rate and rhythm, normal heart sounds, no murmur Abdomen: Soft, non tender, not distended, normal bowel sounds Neuro: Awake, alert, oriented, conversing well, non focal Extremities: No cyanosis, clubbing, trace edema Results & Data Results & Data Vital Signs (Past 12 Hours) Vital Signs Temp Pulse Pulse Resp BP Pulse Ox O2 Del Method 10/03/22 08:19 36.5 C 56 L 17 158/65 H 95 Nasal Cannula 10/03/22 06:00 56 L 10/03/22 03:11 36.6 C 56 L 18 125/67 96 Nasal Cannula 10/02/22 23:46 36.9 C 55 L 18 131/69 96 Nasal Cannula 10/02/22 23:11 56 L O2 Flow Rate 10/03/22 08:19 2.5 10/03/22 06:00 10/03/22 03:11 3 10/02/22 23:46 3 10/02/22 23:11 Laboratory Results Laboratory Results WBC 6.00 K/ul (4.8-10.8) 10/03/22 05:47 RBC 2.79 M/uL (4.20-5.40) L 10/03/22 05:47 Hgb 9.5 g/dl (12.0-16.0) L 10/03/22 05:47 Hct 28.6 % (37.0-47.0) L 10/03/22 05:47 MCV 102.5 fL (80.0-100.0) H 10/03/22 05:47 MCH 34.1 pg (25.0-34.0) H 10/03/22 05:47 MCHC 33.2 g/dL (32.0-36.0) 10/03/22 05:47 RDW Std Deviation 58.2 fL (36.4-46.3) H 10/03/22 05:47 RDW Coeff of Tung 15.4 % (11.5-14.5) H 10/03/22 05:47 Plt Count 64 K/uL (130-400) L 10/03/22 05:47 MPV 10.7 fL (9.4-12.4) 10/03/22 05:47 Immature Gran % (Auto) 0.5 % 10/03/22 05:47 Neut % (Auto) 74.2 % 10/03/22 05:47 Lymph % (Auto) 12.5 % 10/03/22 05:47 [place] % (Auto) 9.0 % 10/03/22 05:47 Eos % (Auto) 3.0 % 10/03/22 05:47 Baso % (Auto) 0.8 % 10/03/22 05:47 Neut # (Auto) 4.45 K/uL (1.40-6.50) 10/03/22 05:47 Lymph # (Auto) 0.75 K/uL (1.2-3.4) L 10/03/22 05:47 [place] # (Auto) 0.54 K/uL (0.11-0.59) 10/03/22 05:47 Eos # (Auto) 0.18 K/uL (0-0.50) 10/03/22 05:47 Baso # (Auto) 0.05 K/uL (0-0.2) 10/03/22 05:47 Immature Gran # (Auto) 0.03 K/uL (0.01-0.20) 10/03/22 05:47 Platelet Estimate Cancelled 09/30/22 20:52 Plt Count ,Citrate 43 K/uL (130-400) L 09/30/22 20:57 D-Dimer 5970 ug/L FEU (0-500) H* 10/01/22 09:18 Sodium 136 mmol/L (136-145) 10/03/22 05:47 Potassium 3.9 mmol/L (3.5-5.1) 10/03/22 05:47 Chloride 105 mmol/L (98-107) 10/03/22 05:47 Carbon Dioxide 26 mmol/L (21-32) 10/03/22 05:47 Anion Gap 5 (3-11) 10/03/22 05:47 BUN 19 mg/dl (6-23) 10/03/22 05:47 Creatinine 0.62 mg/dl (0.6-1.2) 10/03/22 05:47 Est Cr Clr Drug Dosing 59.3 ml/min 10/03/22 05:47 Est GFR ( Amer) 95.3 ml/min 10/03/22 05:47 Est GFR (Non-Af Amer) 82.2 ml/min 10/03/22 05:47 BUN/Creatinine Ratio 30.6 (10-20) H 10/03/22 05:47 Glucose 80 mg/dl (70-99(Fasting)) 10/03/22 05:47 Calcium 7.9 mg/dl (8.6-10.3) L 10/03/22 05:47 Phosphorus 3.4 mg/dl (2.5-4.9) D 10/02/22 06:30 Magnesium 1.9 mg/dl (1.7-2.4) 10/02/22 06:30 Total Bilirubin 0.7 mg/dl (0.2-1.0) 10/03/22 05:47 Direct Bilirubin 0.4 mg/dl (0-0.2) H 09/30/22 17:07 AST 16 U/L (13-39) 10/03/22 05:47 ALT 16 U/L (7-52) 10/03/22 05:47 Alkaline Phosphatase 108 U/L (34-104) H 10/03/22 05:47 Total Creatine Kinase 75 U/L (26-192) 09/30/22 17:07 Troponin I High Sens 61.2 pg/ml (0-14) H* D 10/01/22 05:52 B-Natriuretic Peptide 2382 pg/ml (0-100) H 10/01/22 09:18 Total Protein 8.3 gm/dl (6.0-8.3) 10/03/22 05:47 Albumin 2.3 gm/dl (3.4-5.0) L 10/03/22 05:47 Globulin 6.0 gm/dl (2.5-4.0) H 10/03/22 05:47 Albumin/Globulin Ratio 0.4 (0.9-2) L 10/03/22 05:47 Procalcitonin 47.82 ng/ml (0-0.5) H 10/01/22 09:18 Urine Color Yellow 09/30/22 21:01 Urine Appearance Cloudy (Clear) A 09/30/22 21:01 Urine pH 7.5 (4.5-7.5) 09/30/22 21:01 Ur Specific [place] 1.009 (1.000-1.030) 09/30/22 21:01 Urine Protein 2+ (Negative) H 09/30/22 21:01 Urine Glucose (UA) Negative (Negative) 09/30/22 21: Urine Ketones Negative (Negative) 09/30/22 21:01 Urine Blood 3+ (Negative) H 09/30/22 21:01 Urine Nitrite Negative (Negative) 09/30/22 21:01 Urine Bilirubin Negative (Negative) 09/30/22 21:01 Urine Urobilinogen Negative (Negative) 09/30/22 21:01 Ur Leukocyte Esterase Negative (Negative) 09/30/22 21:01 Urine WBC (Auto) 1-5 /hpf (0-5) 09/30/22 21:01 Urine RBC (Auto) >30 /hpf (0-4) H 09/30/22 21:01 U Hyaline Cast (Auto) 0 /lpf (0-5) 09/30/22 21:01 U Epithel Cells (Auto) 10-20 /lpf (0-5) H 09/30/22 21:01 Urine Bacteria (Auto) 3+ (Negative) H 09/30/22 21:01 Anaplasma Smear See Comment 09/30/22 20:57 Lyme Disease IgG Ab Negative (Negative) 09/30/22 17:07 Lyme Disease IgM Ab Negative (Negative) 09/30/22 17:07 SARS-CoV-2 (PCR) NEGATIVE (Negative) 09/30/22 18:07 Influenza Type A (PCR) Negative (Neg) 09/30/22 18:07 Influenza Type B (PCR) Negative (Neg) 09/30/22 18:07 RSV (RT-PCR) Negative (Neg) 09/30/22 18:07 Impressions Chest X-Ray 09/30/22 17:02 XR chest 1V portable CLINICAL HISTORY: weakness TECHNIQUE: Single frontal radiograph of the chest was obtained. Comparison: Comparison is made to chest radiograph 08/07/2021 FINDINGS: Median sternotomy wires are unchanged. Atrial appendage clip noted. Cardiomegaly is noted. The aortic arch is calcified. Prominence and cephalization of the vasculature is seen. No evidence of pleural effusion or pneumothorax. IMPRESSION: Cardiomegaly and moderate pulmonary edema. ACT 112: Negative or not required by law. Electronically signed by: Kenrick Acosta M.D. 09/30/2022 5:48 PM Abdomen/Pelvis CT 09/30/22 17:23 CT abd pelvis wo con CLINICAL HISTORY: nausea, dry heaving TECHNIQUE: Helical axial images of the abdomen and pelvis were obtained. Automated dose lowering techniques and/or adjustment according to patient size were utilized for this exam. This exam was performed without intravenous contrast. CT DOSE: 1444.28 mGy.cm COMPARISON: Comparison is made to CT abdomen pelvis 07/15/2020 FINDINGS: Lower chest: For findings above the diaphragm, please see CT chest performed same day. Liver: A right hepatic calcification is seen. Gallbladder and biliary tree: No calcified gallstones. Normal caliber wall. No intra- or extrahepatic biliary ductal dilation. Pancreas: Unremarkable, no focal lesions. Spleen: Unremarkable. 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 Kidneys and ureters: Unremarkable. Bladder: Unremarkable. Reproductive organs: Patient is status post hysterectomy. Bowel: Diverticulosis is seen without evidence of diverticulitis. The appendix is normal. Lymph nodes Retroperitoneal: Subcentimeter lymph nodes are noted. Pelvic: Unremarkable. Mesenteric: Unremarkable. Peritoneum: There is peritoneal stranding and a small amount of ascites. Vessels: Unremarkable. Abdominal wall: Fat and fluid containing umbilical hernia and bilateral inguinal hernias are seen. Body wall edema is noted. Bones: Degenerative changes in the visualized spine. IMPRESSION: Anasarca and mild peritoneal stranding noted which may be secondary to fluid overload. No acute abnormalities. ACT 112: Negative or not required by law. Electronically signed by: Kenrick Acosta M.D. 09/30/2022 6:[address] 09/30/22 17:34 CT chest diagnostic wo con CLINICAL HISTORY: eval for pneumonia TECHNIQUE: Multidetector row helical CT of the chest was performed. Coronal and sagittal reformations were obtained. Automated dose lowering techniques and/or adjustment according to patient size were utilized for this exam. Comparison: Comparison is made to CT chest 07/15/2020 FINDINGS: Lungs and pleura: Interlobular septal thickening is seen with mosaic attenuation. There is trace bilateral pleural effusion. Heart and pericardium: Cardiomegaly is seen with biatrial enlargement. Mitral annular calcification is noted. Vessels: Severe atherosclerotic changes in the aorta and coronary arteries. The pulmonary trunk measures 31 mm in diameter. Mediastinum and maurice: Subcentimeter lymph nodes are seen. Chest wall and lower neck: Unremarkable. Abdomen: For findings below the diaphragm, please refer to CT of the abdomen dated the same. Bones: Degenerative changes in the thoracic spine. IMPRESSION: No pneumonia is seen. Interstitial thickening and mosaic attenuation may reflect fibrotic changes and small airways disease. ACT 112: Negative or not required by law. Electronically signed by: Kenrick Acosta M.D. 09/30/2022 6:20 PM Chest CTA 10/01/22 11:15 CT angio chest PE protocol CT DOSE: 646.14 mGy.cm HISTORY: 87 years-old Female with PE. Acute shortness of breath TECHNIQUE: Multiple CTA images of the chest were obtained after the intravenous administration of 120 ml Optiray. Coronal and sagittal MIPS were obtained from the axial data set and were submitted for review. All measurements were obtained according to NASCET criteria. A dose lowering technique was utilized adhering to the principles of ALARA. COMPARISON: 09/30/2022 FINDINGS: CTA: Moderate to marked cardiomegaly. Extensive coronary artery calcifications. No pericardial effusion. Atherosclerosis of the thoracic aorta without aneurysm. Descending thoracic aortic tortuosity. Mild dilation of the main pulmonary artery, 3.4 cm. No pulmonary emboli identified. Left atrial exclusion device. CT CHEST: Heterogeneity of the thyroid. No lymphadenopathy. Trace left and small right pleural effusions. No pneumothorax. Interstitial pulmonary edema. Intermixed groundglass densities with mosaic attenuation has progressed from prior. Mild dependent right greater than left bibasilar opacities. No suspicious pulmonary nodules or masses. 3 mm fissural nodule the right lung on image 87 suggestive of a benign lymph node. Central airways are patent. Generalized body wall edema. 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 Trace upper abdominal ascites. No acute fracture. Degenerative changes of the shoulders and spine. IMPRESSION: 1. No pulmonary emboli identified. 2. Cardiomegaly with interstitial and alveolar pulmonary edema, trace left and small right pleural effusions. Anasarca with trace upper abdominal ascites compatible with fluid overload. 3. Mild right basilar predominant opacities suggestive of atelectasis. ACT 112: Negative or not required by law. The above report was generated using voice recognition software. It may contain grammatical, syntax or spelling errors. Electronically signed by: Miguel Angel Cooper M.D. 10/01/2022 2:02 PM Venous Doppler Study 10/01/22 14:07 ULTRASOUND BILATERAL LOWER EXTREMITY VENOUS CLINICAL HISTORY: Elevated d-dimer. COMPARISON STUDY: Left lower extremity venous ultrasound dated 08/02/2016 TECHNIQUE: Real-time, grayscale, and color Doppler sonography of the deep veins of the right and left lower extremity was performed from the inguinal crease to the calf. Compression and augmentation were utilized. FINDINGS: There is no sonographic evidence of deep venous thrombosis identified in the right or left lower extremity. The common femoral, superficial femoral, and popliteal veins are patent and normally compressible bilaterally. The greater saphenous vein and the profunda femoris vein at the junction with the common femoral vein are clear in both legs. The visualized calf veins are patent bilaterally. IMPRESSION: There is no sonographic evidence of deep venous thrombosis identified in the right or left lower extremity. ACT 112: Negative or not required by law. Electronically signed by: Guillermo Paniagua M.D. 10/01/2022 6:05 PM
[2022-10-03] MEDS: SPIRONOLACTONE 12.5 MG TAB PO SCH (11:28)
[2022-10-03] MEDS: FEXOFENADINE HCL 180 MG TAB PO SCH (20:21)
[2022-10-04] MEDS: ALUMINUM/MAGNESIUM SUSP 30 ML UDC PO PRN (01:52)
[2022-10-04 06:58] LABS: Basophils # (auto) 0.04 K/uL (0-0.2); Basophils % (auto) 0.9 %; Eosinophils # (auto) 0.12 K/uL (0-0.50); Eosinophils % (auto) 2.8 %; Hematocrit (blood only) 29.2 % (37.0-47.0); Hemoglobin 9.7 g/dl (12.0-16.0); Immature Granulocytes # (auto) 0.02 K/uL (0.01-0.20); Immature Granulocytes % (auto) 0.5 %; Lymphocytes # (auto) 0.62 K/uL (1.2-3.4); Lymphocytes % (auto) 14.6 %; Mean Corpuscular Hemoglobin 34.4 pg (25.0-34.0); Mean Corpuscular Hgb Conc 33.2 g/dL (32.0-36.0); Mean Corpuscular Volume 103.5 fL (80.0-100.0); Mean Platelet Volume 10.8 fL (9.4-12.4); Monocytes # (auto) 0.47 K/uL (0.11-0.59); Monocytes % (auto) 11.1 %; Neutrophils # (auto) 2.98 K/uL (1.40-6.50); Neutrophils % (auto) 70.1 %; Platelet Count 69 K/uL (130-400); RDW Standard Deviation 56.8 fL (36.4-46.3); Red Blood Count 2.82 M/uL (4.20-5.40); White Blood Count 4.25 K/ul (4.8-10.8)
[2022-10-04 07:15] LABS: Albumin Globulin Ratio 0.4 (0.9-2); Albumin Level 2.3 gm/dl (3.4-5.0); BUN Creatinine Ratio 26.6 (10-20); Bilirubin,Total 0.7 mg/dl (0.2-1.0); Calcium 8.1 mg/dl (8.6-10.3); Creatinine Clr Calc Pharmacy 57.5 ml/min; Est GFR (African American) 94.3 ml/min; Est GFR (Non-African American) 81.4 ml/min; Globulin 5.9 gm/dl (2.5-4.0); Potassium 3.7 mmol/L (3.5-5.1); Total Protein 8.2 gm/dl (6.0-8.3)
[2022-10-04] MEDS: cefTRIAXone SODIUM 1,000 MG in DEXTROSE 5% AD-VAN 50 ML IV SCH (07:36)
[2022-10-04] MEDS: SPIRONOLACTONE 12.5 MG TAB PO SCH (08:01)
[2022-10-04] MEDS: prednisoLONE acetate 1% OP SUSP 5 ML BTL OPB SCH ×4 (08:01→21:13)
[2022-10-04] MEDS: VIBEGRON 75 MG TAB PO SCH (08:01)
[2022-10-04] MEDS: PRAVASTATIN SOD 40 MG TAB PO SCH (08:01)
[2022-10-04] MEDS: AMIODARONE 200 MG TAB PO SCH (08:02)
[2022-10-04] MEDS: CALCIUM 600MG + VIT D 400 IU TAB PO SCH ×3 (08:02→21:14)
[2022-10-04] MEDS: METOPROLOL SUCC 25MG EXT REL TAB PO SCH (08:02)
[2022-10-04] MEDS: POT PHOSPHATE MONOBASIC W/ SOD TAB PO SCH ×3 (08:02→21:14)
[2022-10-04] MEDS: OXYBUTYNIN CHLORIDE XL 5 MG TABCR PO SCH (08:02)
[2022-10-04] MEDS: ASPIRIN 81 MG ECTAB PO SCH (08:02)
[2022-10-04] MEDS: MAGNESIUM OXIDE 400 MG TAB PO SCH (08:02)
--- NOTE | 2022-10-04 11:26 | Cardiology Progress Note ---
Date of Service October 04, 2022 Assessment & Plan (1) Acute on chronic heart failure with preserved ejection fraction (HFpEF): (2) Elevated troponin: (3) Thrombocytopenia: (4) Paroxysmal atrial fibrillation: (5) Fever: Plan Acute hypoxic respiratory failure. Sepsis. As per Hospitalist History of aortic stenosis status post AVR in September 2016, 23 mm Saint Db Epic Valve. Blood cultures pending. Acute on chronic heart failure, HFpEF. Continue cautious IV diuresis Hypokalemia. Supplement potassium orally. Uncontrolled hypertension. Resolved. Follow. Elevated troponin. EKG without acute changes. Echo without wall motion abnormalities, hyperdynamic LV systolic function. Demand ischemia. Conservative management. Paroxysmal atrial fibrillation. Continue metoprolol and amiodarone. S/p left atrial appendage ligation. Further recommendations pending the above, evaluation by Dr. Friedman, ongoing hospitalization. 10/02/2022 Patient improving with acute on chronic heart failure etiology multifactorial. Slowly diuresing would continue IV diuretics as ordered. Consider spironolactone Patient notes only using diuretic sporadically prehospital. Blood cultures negative for infection though urine culture positive 10/03/2022 Continued cardiovascular improvement approaching euvolemia Discontinue IV furosemide Add oral spironolactone 12.5 mg daily, stop potassium replacement Macrocytic anemia with thrombocytopenia persist 10/04/2022 Slowly improving but still with oxygen demand We will resume furosemide at 20 mg p.o. daily, continue spironolactone 12.5 mg daily We will reduce amiodarone to 100 mg p.o. daily. Continue metoprolol succinate 12.5 mg daily Admission and Anticipated Discharge Date Admission Date: September 30, 2022 Subjective Patient seen and examined, chart, medications, telemetry reviewed. Respiratory status improved no significant peripheral edema no fevers or chills currently. Sinus bradycardia on telemetry Physical Exam Constitutional: WD/WN, vitals as above Eyes: PERRL, conjunctivae normal, anicteric sclerae ENMT: external ear and nose normal, oropharynx normal Neck: trachea midline, no thyromegaly Respiratory: Auscultation: + crackles (Minimal base) Cardiovascular: Rate/Rhythm: regular rate, regular rhythm and + bradycardic Heart Sounds: normal S1, normal S2 and + murmur (Grade 2 or 6 systolic) Vessels: no JVD Extremities: no edema Gastrointestinal (Abdomen): normal bowel sounds, soft, nontender, no hepatosplenomegaly Results & Data Vital Signs (Past 12 Hours) Vital Signs Temp Pulse Pulse Resp BP Pulse Ox O2 Del Method 10/04/22 11:22 36.6 C 55 L 18 154/68 H 97 Nasal Cannula 10/04/22 11:15 97 Nasal Cannula 10/04/22 11:00 Nasal Cannula 10/04/22 08:00 Nasal Cannula 10/04/22 08:00 57 L 10/04/22 07:44 36.8 C 56 L 18 151/74 H 95 Nasal Cannula 10/04/22 03:49 36.8 C 60 22 156/76 H 95 Nasal Cannula 10/04/22 01:01 51 L 10/04/22 00:16 Nasal Cannula O2 Flow Rate FiO2 10/04/22 11:22 1.5 10/04/22 11:15 1 10/04/22 11:00 2 95 10/04/22 08:00 2 10/04/22 08:00 10/04/22 07:44 2 10/04/22 03:49 1.5 10/04/22 01:01 10/04/22 00:16 1 Laboratory Results Laboratory Results - last 24 hr 10/04/22 10/04/22 10/04/22 06:20 06:20 06:20 WBC 4.25 L RBC 2.82 L Hgb 9.7 L Hct 29.2 L MCV 103.5 H MCH 34.4 H MCHC 33.2 RDW Std Deviation 56.8 H RDW Coeff of Tung 15.0 H Plt Count 69 L MPV 10.8 Immature Gran % (Auto) 0.5 Neut % (Auto) 70.1 Lymph % (Auto) 14.6 [place] % (Auto) 11.1 Eos % (Auto) 2.8 Baso % (Auto) 0.9 Neut # (Auto) 2.98 Lymph # (Auto) 0.62 L [place] # (Auto) 0.47 Eos # (Auto) 0.12 Baso # (Auto) 0.04 Immature Gran # (Auto) 0.02 Sodium 135 L Potassium 3.7 Chloride 103 Carbon Dioxide 27 Anion Gap 5 BUN 17 Creatinine 0.64 Est Cr Clr Drug Dosing 57.5 Est GFR ( Amer) 94.3 Est GFR (Non-Af Amer) 81.4 BUN/Creatinine Ratio 26.6 H Glucose 83 Calcium 8.1 L Total Bilirubin 0.7 AST 18 ALT 17 Alkaline Phosphatase 115 H Total Protein 8.2 Albumin 2.3 L Globulin 5.9 H Albumin/Globulin Ratio 0.4 L Vitamin B12 513
--- NOTE | 2022-10-04 12:08 | Hospitalist Progress Note ---
Date of Service October 04, 2022 Assessment & Plan (1) Hypoxia: (2) Acute on chronic heart failure with preserved ejection fraction (HFpEF): (3) Generalized weakness: (4) Hypokalemia: (5) Elevated troponin: (6) Paroxysmal atrial fibrillation: (7) MGUS (monoclonal gammopathy of unknown significance): Plan This is an 87-year-old female who has significant past medical history of paroxysmal atrial fibrillation s/p left atrial appendage ligation, chronic HFpEF, history of aortic valve replacement, GERD, hyperlipidemia, urge incontinence, MGUS who presents to ED secondary to weakness and ill feeling x2 days. WBC 17, procal 47, Does not meet SIRS criteria. CT with no PNA. Lym e/anaplasma negative. No vegetations mentioned in echo. Acute hypoxic respiratory failure- likely from decompensated CHF. CTA chest with no PE, PNA but fluid overload. Covid negative. - Continue supplemental oxygen. Wean off as tolerated. Discussed with nursing. Acute decompensated HFpEF- BNP elevated, CT and CXR with pulm edema. Echo with normal EF, mod-sev TR with mod pulm HTN Discussed with cardiology; discontinue IV Lasix. Started on spironolactone 12.5 once daily. Also, oral Lasix 20 mg daily added by cardiology today. UTI- urine clx with E. coli. Sensitive to ceftriaxone. Completed 5-day course. Labs reviewed; leukocytosis resolved. blood culture no growth till date. Thrombocytopenia- OP labs show thrombocytopenia this year, currently in upper 50s and stable. No bleeding. Elevated troponin- trop mildly elevated, trend flat. Related to above. no need for further trend. No CP. Bioprosthetic AVR in situ- Echo reviewed. Bioprosth aortic valve leaflets mildly thickened however open normally, bioprosth AV systolic gradient has increased but no significant AV regurgitation. Hypokalemia- Resolved with repletion. Paroxysmal atrial fibrillation- s/p BECKY ligation and not on anticoag anymore. NSR, on metoprolol and amiodarone Hx of night terrors/Delirium pt daughter states has happened during previous hospital stays she is only a few miles away and able to come sit with patient overnight if this occurs as this has helped in past Hx of MGUS pt with elevated total protein 10.1 with elevated globulin gap pt will need out heme f/u Elevated D dimer- CT PE negative. US LE negative for DVT DVT ppx: scd now given thrombocytopenia. Dispo- Continue current level of care. Hypoxic on 1.5 L NC, getting diuresis. PT OT eval recommend SNF. Case management on board. Discussed with her daughters over the phone at bedside on 10/02. Answered questions/queries. Time spent evaluating patient, direct bedside care, chart review, placing orders, interpretation of diagnostic studies, discussion with consultants, patient, and family members, as well as other required patient management activities is 60 minutes. Please note the above document was generated using voice recognition software. It may contain grammatical, syntax or spelling errors. Any formal questions or concerns about the content, text or information contained within the body of this dictation should be directly addressed to the provider for clarification Admission and Anticipated Discharge Date Admission Date: September 30, 2022 Subjective Patient seen and examined at bedside. She is sitting up on the chair comfortably; not in distress. Does not report shortness of breath. Afebrile overnight. Review of Systems Review of Systems: All systems reviewed & are unremarkable except as noted in Subjective Physical Exam Physical Exam: General: Sitting comfortably in bed, not in acute distress, on NC HEENT: EOMI, LISA, MMM Chest: Faint bibasilar crackles present. CVS: Regular rate and rhythm, normal heart sounds, no murmur Abdomen: Soft, non tender, not distended, normal bowel sounds Neuro: Awake, alert, oriented, conversing well, non focal Extremities: No cyanosis, clubbing, trace edema Results & Data Results & Data Vital Signs (Past 12 Hours) Vital Signs Temp Pulse Pulse Resp BP Pulse Ox O2 Del Method 10/04/22 11:22 36.6 C 55 L 18 154/68 H 97 Nasal Cannula 10/04/22 11:15 97 Nasal Cannula 10/04/22 11:00 Nasal Cannula 10/04/22 08:00 Nasal Cannula 10/04/22 08:00 57 L 10/04/22 07:44 36.8 C 56 L 18 151/74 H 95 Nasal Cannula 10/04/22 03:49 36.8 C 60 22 156/76 H 95 Nasal Cannula 10/04/22 01:01 51 L 10/04/22 00:16 Nasal Cannula O2 Flow Rate FiO2 10/04/22 11:22 1.5 10/04/22 11:15 1 10/04/22 11:00 2 95 10/04/22 08:00 2 10/04/22 08:00 10/04/22 07:44 2 10/04/22 03:49 1.5 10/04/22 01:01 10/04/22 00:16 1 Laboratory Results Laboratory Results WBC 4.25 K/ul (4.8-10.8) L 10/04/22 06:20 RBC 2.82 M/uL (4.20-5.40) L 10/04/22 06:20 Hgb 9.7 g/dl (12.0-16.0) L 10/04/22 06:20 Hct 29.2 % (37.0-47.0) L 10/04/22 06:20 MCV 103.5 fL (80.0-100.0) H 10/04/22 06:20 MCH 34.4 pg (25.0-34.0) H 10/04/22 06:20 MCHC 33.2 g/dL (32.0-36.0) 10/04/22 06:20 RDW Std Deviation 56.8 fL (36.4-46.3) H 10/04/22 06:20 RDW Coeff of Tung 15.0 % (11.5-14.5) H 10/04/22 06:20 Plt Count 69 K/uL (130-400) L 10/04/22 06:20 MPV 10.8 fL (9.4-12.4) 10/04/22 06:20 Immature Gran % (Auto) 0.5 % 10/04/22 06:20 Neut % (Auto) 70.1 % 10/04/22 06:20 Lymph % (Auto) 14.6 % 10/04/22 06:20 [place] % (Auto) 11.1 % 10/04/22 06:20 Eos % (Auto) 2.8 % 10/04/22 06:20 Baso % (Auto) 0.9 % 10/04/22 06:20 Neut # (Auto) 2.98 K/uL (1.40-6.50) 10/04/22 06:20 Lymph # (Auto) 0.62 K/uL (1.2-3.4) L 10/04/22 06:20 [place] # (Auto) 0.47 K/uL (0.11-0.59) 10/04/22 06:20 Eos # (Auto) 0.12 K/uL (0-0.50) 10/04/22 06:20 Baso # (Auto) 0.04 K/uL (0-0.2) 10/04/22 06:20 Immature Gran # (Auto) 0.02 K/uL (0.01-0.20) 10/04/22 06:20 Platelet Estimate Cancelled 09/30/22 20:52 Plt Count ,Citrate 43 K/uL (130-400) L 09/30/22 20:57 D-Dimer 5970 ug/L FEU (0-500) H* 10/01/22 09:18 Sodium 135 mmol/L (136-145) L 10/04/22 06:20 Potassium 3.7 mmol/L (3.5-5.1) 10/04/22 06:20 Chloride 103 mmol/L (98-107) 10/04/22 06:20 Carbon Dioxide 27 mmol/L (21-32) 10/04/22 06:20 Anion Gap 5 (3-11) 10/04/22 06:20 BUN 17 mg/dl (6-23) 10/04/22 06:20 Creatinine 0.64 mg/dl (0.6-1.2) 10/04/22 06:20 Est Cr Clr Drug Dosing 57.5 ml/min 10/04/22 06:20 Est GFR ( Amer) 94.3 ml/min 10/04/22 06:20 Est GFR (Non-Af Amer) 81.4 ml/min 10/04/22 06:20 BUN/Creatinine Ratio 26.6 (10-20) H 10/04/22 06:20 Glucose 83 mg/dl (70-99(Fasting)) 10/04/22 06:20 Calcium 8.1 mg/dl (8.6-10.3) L 10/04/22 06:20 Phosphorus 3.4 mg/dl (2.5-4.9) D 10/02/22 06:30 Magnesium 1.9 mg/dl (1.7-2.4) 10/02/22 06:30 Total Bilirubin 0.7 mg/dl (0.2-1.0) 10/04/22 06:20 Direct Bilirubin 0.4 mg/dl (0-0.2) H 09/30/22 17:07 AST 18 U/L (13-39) 10/04/22 06:20 ALT 17 U/L (7-52) 10/04/22 06:20 Alkaline Phosphatase 115 U/L (34-104) H 10/04/22 06:20 Total Creatine Kinase 75 U/L (26-192) 09/30/22 17:07 Troponin I High Sens 61.2 pg/ml (0-14) H* D 10/01/22 05:52 B-Natriuretic Peptide 2382 pg/ml (0-100) H 10/01/22 09:18 Total Protein 8.2 gm/dl (6.0-8.3) 10/04/22 06:20 Albumin 2.3 gm/dl (3.4-5.0) L 10/04/22 06:20 Globulin 5.9 gm/dl (2.5-4.0) H 10/04/22 06:20 Albumin/Globulin Ratio 0.4 (0.9-2) L 10/04/22 06:20 Vitamin B12 513 pg/ml (180-914) 10/04/22 06:20 Procalcitonin 47.82 ng/ml (0-0.5) H 10/01/22 09:18 Urine Color Yellow 09/30/22 21:01 Urine Appearance Cloudy (Clear) A 09/30/22 21:01 Urine pH 7.5 (4.5-7.5) 09/30/22 21:01 Ur Specific [place] 1.009 (1.000-1.030) 09/30/22 21:01 Urine Protein 2+ (Negative) H 09/30/22 21:01 Urine Glucose (UA) Negative (Negative) 09/30/22 21:01 Urine Ketones Negative (Negative) 09/30/22 21:01 Urine Blood 3+ (Negative) H 09/30/22 21:01 Urine Nitrite Negative (Negative) 09/30/22 21:01 Urine Bilirubin Negative (Negative) 09/30/22 21:01 Urine Urobilinogen Negative (Negative) 09/30/22 21:01 Ur Leukocyte Esterase Negative (Negative) 09/30/22 21:01 Urine WBC (Auto) 1-5 /hpf (0-5) 09/30/22 21:01 Urine RBC (Auto) >30 /hpf (0-4) H 09/30/22 21:01 U Hyaline Cast (Auto) 0 /lpf (0-5) 09/30/22 21:01 U Epithel Cells (Auto) 10-20 /lpf (0-5) H 09/30/22 21:01 Urine Bacteria (Auto) 3+ (Negative) H 09/30/22 21:01 Anaplasma Smear See Comment 09/30/22 20:57 Lyme Disease IgG Ab Negative (Negative) 09/30/22 17:07 Lyme Disease IgM Ab Negative (Negative) 09/30/22 17:07 SARS-CoV-2 (PCR) NEGATIVE (Negative) 09/30/22 18:07 Influenza Type A (PCR) Negative (Neg) 09/30/22 18:07 Influenza Type B (PCR) Negative (Neg) 09/30/22 18:07 RSV (RT-PCR) Negative (Neg) 09/30/22 18:07 Impressions Chest X-Ray 09/30/22 17:02 XR chest 1V portable CLINICAL HISTORY: weakness TECHNIQUE: Single frontal radiograph of the chest was obtained. Comparison: Comparison is made to chest radiograph 08/07/2021 FINDINGS: Median sternotomy wires are unchanged. Atrial appendage clip noted. Cardiomegaly is noted. The aortic arch is calcified. Prominence and cephalization of the vasculature is seen. No evidence of pleural effusion or pneumothorax. IMPRESSION: Cardiomegaly and moderate pulmonary edema. ACT 112: Negative or not required by law. Electronically signed by: Kenrick Acosta M.D. 09/30/2022 5:48 PM Abdomen/Pelvis CT 09/30/22 17:23 CT abd pelvis wo con CLINICAL HISTORY: nausea, dry heaving TECHNIQUE: Helical axial images of the abdomen and pelvis were obtained. Automated dose lowering techniques and/or adjustment according to patient size were utilized for this exam. This exam was performed without intravenous contrast. CT DOSE: 1444.28 mGy.cm COMPARISON: Comparison is made to CT abdomen pelvis 07/15/2020 FINDINGS: Lower chest: For findings above the diaphragm, please see CT chest performed same day. Liver: A right hepatic calcification is seen. Gallbladder and biliary tree: No calcified gallstones. Normal caliber wall. No intra- or extrahepatic biliary ductal dilation. Pancreas: Unremarkable, no focal lesions. Spleen: Unremarkable. 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 Kidneys and ureters: Unremarkable. Bladder: Unremarkable. Reproductive organs: Patient is status post hysterectomy. Bowel: Diverticulosis is seen without evidence of diverticulitis. The appendix is normal. Lymph nodes Retroperitoneal: Subcentimeter lymph nodes are noted. Pelvic: Unremarkable. Mesenteric: Unremarkable. Peritoneum: There is peritoneal stranding and a small amount of ascites. Vessels: Unremarkable. Abdominal wall: Fat and fluid containing umbilical hernia and bilateral inguinal hernias are seen. Body wall edema is noted. Bones: Degenerative changes in the visualized spine. IMPRESSION: Anasarca and mild peritoneal stranding noted which may be secondary to fluid overload. No acute abnormalities. ACT 112: Negative or not required by law. Electronically signed by: Kenrick Acosta M.D. 09/30/2022 6:[address] 09/30/22 17:34 CT chest diagnostic wo con CLINICAL HISTORY: eval for pneumonia TECHNIQUE: Multidetector row helical CT of the chest was performed. Coronal and sagittal reformations were obtained. Automated dose lowering techniques and/or adjustment according to patient size were utilized for this exam. Comparison: Comparison is made to CT chest 07/15/2020 FINDINGS: Lungs and pleura: Interlobular septal thickening is seen with mosaic attenuation. There is trace bilateral pleural effusion. Heart and pericardium: Cardiomegaly is seen with biatrial enlargement. Mitral annular calcification is noted. Vessels: Severe atherosclerotic changes in the aorta and coronary arteries. The pulmonary trunk measures 31 mm in diameter. Mediastinum and maurice: Subcentimeter lymph nodes are seen. Chest wall and lower neck: Unremarkable. Abdomen: For findings below the diaphragm, please refer to CT of the abdomen dated the same. Bones: Degenerative changes in the thoracic spine. IMPRESSION: No pneumonia is seen. Interstitial thickening and mosaic attenuation may reflect fibrotic changes and small airways disease. ACT 112: Negative or not required by law. Electronically signed by: Kenrick Acosta M.D. 09/30/2022 6:20 PM Chest CTA 10/01/22 11:15 CT angio chest PE protocol CT DOSE: 646.14 mGy.cm HISTORY: 87 years-old Female with PE. Acute shortness of breath TECHNIQUE: Multiple CTA images of the chest were obtained after the intravenous administration of 120 ml Optiray. Coronal and sagittal MIPS were obtained from the axial data set and were submitted for review. All measurements were obtained according to NASCET criteria. A dose lowering technique was utilized adhering to the principles of ALARA. COMPARISON: 09/30/2022 FINDINGS: CTA: Moderate to marked cardiomegaly. Extensive coronary artery calcifications. No pericardial effusion. Atherosclerosis of the thoracic aorta without aneurysm. Descending thoracic aortic tortuosity. Mild dilation of the main pulmonary artery, 3.4 cm. No pulmonary emboli identified. Left atrial exclusion device. CT CHEST: Heterogeneity of the thyroid. No lymphadenopathy. Trace left and small right pleural effusions. No pneumothorax. Interstitial pulmonary edema. Intermixed groundglass densities with mosaic attenuation has progressed from prior. Mild dependent right greater than left bibasilar opacities. No suspicious pulmonary nodules or masses. 3 mm fissural nodule the right lung on image 87 suggestive of a benign lymph node. Central airways are patent. Generalized body wall edema. 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 Trace upper abdominal ascites. No acute fracture. Degenerative changes of the shoulders and spine. IMPRESSION: 1. No pulmonary emboli identified. 2. Cardiomegaly with interstitial and alveolar pulmonary edema, trace left and small right pleural effusions. Anasarca with trace upper abdominal ascites compatible with fluid overload. 3. Mild right basilar predominant opacities suggestive of atelectasis. ACT 112: Negative or not required by law. The above report was generated using voice recognition software. It may contain grammatical, syntax or spelling errors. Electronically signed by: Miguel Angel Cooper M.D. 10/01/2022 2:02 PM Venous Doppler Study 10/01/22 14:07 ULTRASOUND BILATERAL LOWER EXTREMITY VENOUS CLINICAL HISTORY: Elevated d-dimer. COMPARISON STUDY: Left lower extremity venous ultrasound dated 08/02/2016 TECHNIQUE: Real-time, grayscale, and color Doppler sonography of the deep veins of the right and left lower extremity was performed from the inguinal crease to the calf. Compression and augmentation were utilized. FINDINGS: There is no sonographic evidence of deep venous thrombosis identified in the right or left lower extremity. The common femoral, superficial femoral, and popliteal veins are patent and normally compressible bilaterally. The greater saphenous vein and the profunda femoris vein at the junction with the common femoral vein are clear in both legs. The visualized calf veins are patent bilaterally. IMPRESSION: There is no sonographic evidence of deep venous thrombosis identified in the right or left lower extremity. ACT 112: Negative or not required by law. Electronically signed by: Guillermo Paniagua M.D. 10/01/2022 6:05 PM
[2022-10-04] MEDS: FUROSEMIDE 20 MG TAB PO SCH (12:09)
[2022-10-04 15:11] LABS: Albumin 3.3 g/dL (3.8-4.8); Alpha 1 Globulin 0.4 g/dL (0.2-0.3); Alpha 2 Globulin 0.8 g/dL (0.5-0.9); Beta-1-Globulin 0.4 g/dL (0.4-0.6); Beta-2-Globulin 0.2 g/dL (0.2-0.5); Gamma Globulin 4.7 g/dL (0.8-1.7); Monoclonal Protein Band 1 0.1 g/dL (NONE DETECTED); Monoclonal Protein Band 2 4.5 g/dL (NONE DETECTED); Monoclonal Protein Band 3 DNR g/dL (NONE DETECTED); Total Protein 9.8 g/dL (6.1-8.1)
[2022-10-04] MEDS: FEXOFENADINE HCL 180 MG TAB PO SCH (21:14)
[2022-10-05] MEDS: ALUMINUM/MAGNESIUM SUSP 30 ML UDC PO PRN (01:35)
[2022-10-05 07:09] LABS: Basophils # (auto) 0.05 K/uL (0-0.2); Basophils % (auto) 1.5 %; Eosinophils # (auto) 0.12 K/uL (0-0.50); Eosinophils % (auto) 3.6 %; Hematocrit (blood only) 29.2 % (37.0-47.0); Hemoglobin 9.7 g/dl (12.0-16.0); Immature Granulocytes # (auto) 0.02 K/uL (0.01-0.20); Immature Granulocytes % (auto) 0.6 %; Lymphocytes % (auto) 20.8 %; Mean Corpuscular Hemoglobin 34.2 pg (25.0-34.0); Mean Corpuscular Hgb Conc 33.2 g/dL (32.0-36.0); Mean Corpuscular Volume 102.8 fL (80.0-100.0); Mean Platelet Volume 10.3 fL (9.4-12.4); Monocytes # (auto) 0.45 K/uL (0.11-0.59); Monocytes % (auto) 13.4 %; Neutrophils # (auto) 2.03 K/uL (1.40-6.50); Neutrophils % (auto) 60.1 %; Platelet Count 80 K/uL (130-400); RDW Standard Deviation 56.6 fL (36.4-46.3); Red Blood Count 2.84 M/uL (4.20-5.40); White Blood Count 3.37 K/ul (4.8-10.8)
[2022-10-05 07:39] LABS: BUN Creatinine Ratio 23.5 (10-20); Calcium 8.2 mg/dl (8.6-10.3); Creatinine Clr Calc Pharmacy 70.4 ml/min; Est GFR (African American) 101.6 ml/min; Est GFR (Non-African American) 87.7 ml/min; Magnesium 1.7 mg/dl (1.7-2.4); Potassium 3.5 mmol/L (3.5-5.1)
[2022-10-05] MEDS: FUROSEMIDE 20 MG TAB PO SCH (08:18)
[2022-10-05] MEDS: CALCIUM 600MG + VIT D 400 IU TAB PO SCH ×2 (08:19→14:18)
[2022-10-05] MEDS: VIBEGRON 75 MG TAB PO SCH (08:20)
[2022-10-05] MEDS: OXYBUTYNIN CHLORIDE XL 5 MG TABCR PO SCH (08:20)
[2022-10-05] MEDS: MAGNESIUM OXIDE 400 MG TAB PO SCH (08:20)
[2022-10-05] MEDS: POT PHOSPHATE MONOBASIC W/ SOD TAB PO SCH ×2 (08:20→14:18)
[2022-10-05] MEDS: METOPROLOL SUCC 25MG EXT REL TAB PO SCH (08:21)
[2022-10-05] MEDS: PRAVASTATIN SOD 40 MG TAB PO SCH (08:21)
[2022-10-05] MEDS: prednisoLONE acetate 1% OP SUSP 5 ML BTL OPB SCH (08:22)
[2022-10-05] MEDS: FERROUS SULFATE 325 MG TAB PO SCH (08:22)
[2022-10-05] MEDS: ASPIRIN 81 MG ECTAB PO SCH (08:22)
[2022-10-05] MEDS: SPIRONOLACTONE 12.5 MG TAB PO SCH (08:22)
[2022-10-05] MEDS ORDERED: AMIODARONE 200 MG TAB PO SCH (09:00)
--- NOTE | 2022-10-05 12:14 | Hospitalist Progress Note ---
Date of Service October 05, 2022 Assessment & Plan (1) Hypoxia: (2) Acute on chronic heart failure with preserved ejection fraction (HFpEF): (3) Generalized weakness: (4) Hypokalemia: (5) Elevated troponin: (6) Paroxysmal atrial fibrillation: (7) MGUS (monoclonal gammopathy of unknown significance): Plan This is an 87-year-old female who has significant past medical history of paroxysmal atrial fibrillation s/p left atrial appendage ligation, chronic HFpEF, history of aortic valve replacement, GERD, hyperlipidemia, urge incontinence, MGUS who presents to ED secondary to weakness and ill feeling x2 days. WBC 17, procal 47, Does not meet SIRS criteria. CT with no PNA. Lym e/anaplasma negative. No vegetations mentioned in echo. Acute hypoxic respiratory failure- likely from decompensated CHF. CTA chest with no PE, PNA but fluid overload. Covid negative. - Continue supplemental oxygen. Wean off as tolerated. Discussed with nursing. Acute decompensated HFpEF- BNP elevated, CT and CXR with pulm edema. Echo with normal EF, mod-sev TR with mod pulm HTN Discussed with cardiology; discontinue IV Lasix. Started on spironolactone 12.5 once daily. Also, oral Lasix 20 mg daily added by cardiology today. UTI- urine clx with E. coli. Sensitive to ceftriaxone. Completed 5-day course. Labs reviewed; leukocytosis resolved. blood culture no growth till date. Thrombocytopenia- OP labs show thrombocytopenia this year, currently in upper 50s and stable. No bleeding. Elevated troponin- trop mildly elevated, trend flat. Related to above. no need for further trend. No CP. Bioprosthetic AVR in situ- Echo reviewed. Bioprosth aortic valve leaflets mildly thickened however open normally, bioprosth AV systolic gradient has increased but no significant AV regurgitation. Hypokalemia- Resolved with repletion. Paroxysmal atrial fibrillation- s/p BECKY ligation and not on anticoag anymore. NSR, on metoprolol and amiodarone Hx of night terrors/Delirium pt daughter states has happened during previous hospital stays she is only a few miles away and able to come sit with patient overnight if this occurs as this has helped in past Hx of MGUS pt with elevated total protein 10.1 with elevated globulin gap pt will need out heme f/u Elevated D dimer- CT PE negative. US LE negative for DVT DVT ppx: scd now given thrombocytopenia. Dispo- Continue current level of care. Hypoxic on 1.5 L NC, getting diuresis. PT OT eval recommend SNF. Case management on board. Discussed with her daughters over the phone at bedside on 10/02. Answered questions/queries. Time spent evaluating patient, direct bedside care, chart review, placing orders, interpretation of diagnostic studies, discussion with consultants, patient, and family members, as well as other required patient management activities is 60 minutes. Please note the above document was generated using voice recognition software. It may contain grammatical, syntax or spelling errors. Any formal questions or concerns about the content, text or information contained within the body of this dictation should be directly addressed to the provider for clarification Admission and Anticipated Discharge Date Admission Date: September 30, 2022 Subjective Patient seen and examined at bedside. She reports that she was out of bed and walking on the hallways yesterday. Reports that she gets short of breath on exertion. Comfortable at baseline. Physical Exam Physical Exam: General: Sitting comfortably in bed, not in acute distress, on NC HEENT: EOMI, LISA, MMM Chest: Faint bibasilar crackles present. CVS: Regular rate and rhythm, normal heart sounds, no murmur Abdomen: Soft, non tender, not distended, normal bowel sounds Neuro: Awake, alert, oriented, conversing well, non focal Extremities: No cyanosis, clubbing, trace edema Results & Data Results & Data Vital Signs (Past 12 Hours) Vital Signs Temp Pulse Pulse Resp BP Pulse Ox O2 Del Method 10/05/22 11:49 36.7 C 56 L 18 154/69 H 95 Room Air 10/05/22 07:15 61 10/05/22 09:36 Room Air 10/05/22 07:29 37.2 C 61 18 133/66 96 Nasal Cannula 10/05/22 02:59 36.4 C L 63 20 164/71 H 94 Nasal Cannula O2 Flow Rate 10/05/22 11:49 10/05/22 07:15 10/05/22 09:36 10/05/22 07:29 0.5 10/05/22 02:59 1
--- NOTE | 2022-10-05 12:15 | Discharge Summary ---
Date of Service October 05, 2022 Admission HPI Per Admitting Provider This is an 87-year-old female who has significant past medical history of paroxysmal atrial fibrillation s/p left atrial appendage ligation, chronic HFpEF, history of aortic valve replacement, GERD, hyperlipidemia, urge incontinence, MGUS who presents to ED secondary to weakness and ill feeling x2 days. Patient's daughter Jeaneth is at bedside. Patient lives at [place] however her other daughter lives in [place] and she does receive her cardiac care through [facility]. At baseline patient is pretty sedentary but does ambulate with a walker. She is a fall risk. They were up in the [place] area dog sitting. Over the last 1 to 2 days patient generally has felt more weak. She also has had increased fatigue, chills, nausea, "gagging,", increased urinary urgency and difficulty moving bowels. She has history of paraesophageal hernia repair and therefore states that she cannot vomit. In ED patient was found to be hypertensive and mildly hypoxic saturating 89% on room air. She does have a chronic cough that occurs first thing in the morning and then resolves. This is unchanged. She generally does not feel more short of breath than usual. Over the last several months even little activity has made her more fatigued. Daughter states that she has Lasix at home as needed to take when she has swelling. She took this once last week. She has been compliant with her other medications. She did have mildly elevated temp upon arrival at 37.9. She was empirically given cefepime to cover for possible infectious process. SARS-CoV-2 and influenza negative. Urinalysis is still pending. She was placed on supplemental oxygen and given 20 mg of IV Lasix. She did have mildly elevated troponin at 20.3. Patient states that she felt chilled today but denies any fever or sweats. Daughter states she took her temperature at home and it was 98.6. Patient denies any lightheadedness, dizziness, chest pain, hemoptysis, vomiting, dysuria, hematuria or melena. She does complain of lower suprapubic discomfort. Admission Exam Per Admitting Provider Constitutional: WD/WN, elderly, F, dry mucous membranes, vitals as above, NAD, sitting up in bed, pleasant, conversing easily Head: Normocephalic, Atraumatic Eyes: PERRL, conjunctivae normal, anicteric sclerae ENMT: external ear and nose normal, oropharynx normal but dry Neck: trachea midline, no thyromegaly normal visual inspection Respiratory: normal respiratory effort, lungs clear to auscultation, no wheeze, rales, rhonchi. Normal insp/exp effort, no accessory muscle use Cardiovascular: RRR, avr auscultated, b/l venous stasis changes, no warmth or erythema, no edema Vessels: no JVD or carotid bruit Chest: normal inspection of chest Abdomen: normal bowel sounds, soft, nontender, no hepatosplenomegaly Musculoskeletal: no cyanosis or clubbing, extremities AROM x 4 Skin: no rashes, warm and dry normal turgor Neurologic: PERRL, EOMI, accommodation nl, no face palsy, no dysarthria CN's II-XI intact bilaterally and moves all extremities Psychiatric: A+Ox3, euthymic affect Lymphatic: no cervical or axillary lymphadenopathy : deferred Principal Diagnosis Acute hypoxic respiratory failure- Acute decompensated HFpEF Discharge Exam General: Sitting comfortably in bed, not in acute distress, on NC HEENT: EOMI, LISA, MMM Chest: Faint bibasilar crackles present. CVS: Regular rate and rhythm, normal heart sounds, no murmur Abdomen: Soft, non tender, not distended, normal bowel sounds Neuro: Awake, alert, oriented, conversing well, non focal Extremities: No cyanosis, clubbing, trace edema Discharge Data Allergies Allergy/AdvReac Type Severity Reaction Status Date / Time simvastatin AdvReac Severe ELEVATED Verified 09/30/22 18:21 LIVER ENZYMES oxaprozin AdvReac Intermediate MAKES FEEL Verified 09/30/22 18:21 DEPRESSED Consultations 09/30/22 19:19 ED Decision to Admit Stat 09/30/22 22:26 Consult Cardiology Routine Ordered Studies 09/30/22 17:23 CT Abd and Pelvis [CT abd pelvis wo con] Stat 09/30/22 17:34 CT chest diagnostic wo con Stat 10/01/22 11:15 CT for pulmonary embolism PE [CT angio chest PE protocol] Urgent 10/01/22 14:07 US venous doppler LE Routine Hospital Course (1) Hypoxia: (2) Acute on chronic heart failure with preserved ejection fraction (HFpEF): (3) Generalized weakness: (4) Hypokalemia: (5) Elevated troponin: (6) Paroxysmal atrial fibrillation: (7) MGUS (monoclonal gammopathy of unknown significance): Plan Patient is an 87-year-old female who has significant past medical history of paroxysmal atrial fibrillation s/p left atrial appendage ligation, chronic HFpEF, history of aortic valve replacement, GERD, hyperlipidemia, urge incontinence, MGUS who presents to ED secondary to weakness and ill feeling x2 days. WBC 17, procal 47, Does not meet SIRS criteria. CT with no PNA. Lyme/anaplasma negative. No vegetations mentioned in echo. Acute hypoxic respiratory failure Acute decompensated HFpEF- BNP elevated, CT and CXR with pulm edema. Echo with normal EF, mod-sev TR with mod pulm HTN CTA rule out PE During the hospitalization, patient was diuresed with IV Lasix. Patient responded well with decreasing oxygen requirement over the course of the hospitalization; she was saturating well in room air at discharge. Cardiology consultation was done; patient was started on oral Lasix 20 mg once daily and spironolactone 12.5 mg once daily. UTI-urine clx with E. coli. Sensitive to ceftriaxone. Completed 5-day course of antibiotics. Thrombocytopenia- OP labs show thrombocytopenia this year, currently in upper 50s and stable. No bleeding. Elevated troponin-trop mildly elevated, trend flat. Related to above. no need for further trend. No CP. Bioprosthetic AVR in situ-Echo reviewed. Bioprosth aortic valve leaflets mildly thickened however open normally, bioprosth AV systolic gradient has increased but no significant AV regurgitation. Paroxysmal atrial fibrillation-s/p BECKY ligation and not on anticoag anymore. Dose of amiodarone changed to 100 mg once daily at discharge. PT OT evaluation was done; patient was discharged to [facility] for acute rehab. Please note the above document was generated using voice recognition software. It may contain grammatical, syntax or spelling errors. Any formal questions or concerns about the content, text or information contained within the body of this dictation should be directly addressed to the provider for clarification Total Time Total Time Spent Total Time Spent (In Minutes): 45 Total Time Includes: Examination of the Patient, Discharge Planning, Medication Reconciliation, Communication With Other Providers and Other Discharge Plan Discharge Items Patient Disposition: Transfer Inpatient Rehab Fac Reason For Visit: CHF, HYPOXIA Discharge Diagnosis: Acute hypoxic respiratory failure- Activity: Resume your previous activity Non-emergency contact: Primary Care Provider Call non-emergency contact if: you have any medication questions and your symptoms worsen Follow-up/Referrals: Eliazar Reis MD [Primary Care Provider] - Diet: Regular Addtl Attending Provider Instructions: You were admitted to the hospital for following condition.: 1) Low oxygen level; due to heart failure exacerbation. You are evaluated by cardiology during the hospitalization. They recommend following medication changes: a) Decrease amiodarone 200 mg once daily b) Take Lasix 20 mg once daily c) Take spironolactone 12.5 once daily 2) urine tract infection. You were treated with IV antibiotics during the hospitalization. Please continue PT OT at the rehab. Please follow-up with primary care doctor after discharge. Pending Studies at Discharge: No Stand-Alone Forms: [facility] [email or web address], Smoking Cessation Medications and DC Order Prescriptions: New amiodarone 200 mg Tablet 100 mg PO QAM Qty: 30 0RF spironolactone 25 mg Tablet 12.5 mg PO DAILY Qty: 30 0RF furosemide 20 mg Tablet 20 mg PO QAM Qty: 30 0RF Continued pravastatin 80 mg tablet 80 mg PO QAM prednisolone acetate 1 % drops,suspension 1 drp OPB TID magnesium oxide 500 mg tablet 500 mg PO QAM Phospha 250 Neutral 250 mg tablet 2 tab PO TID solifenacin 5 mg tablet 5 mg PO QAM acetaminophen [Tylenol Extra Strength] 500 mg Tablet 1,000 mg PO BID PRN (Reason: Pain) ascorbic acid (vitamin C) [Vitamin C] 500 mg Tablet 500 mg PO QAM ferrous sulfate [iron] 325 mg (65 mg iron) Tablet 325 mg PO Q OTHER DAY aspirin 81 mg Tablet,Delayed Release (Dr/Ec) 81 mg PO DAILY Rx Instructions: PER PT'S DAUGHTER "NORMALLY TAKES EVERY DAY, HASN'T TAKEN FOR ABOUT A WEEK NOW". potassium chloride [Klor-Con M10] 10 mEq tablet,ER particles/crystals 10 meq PO BID calcium carbonate-vitamin D3 [Calcium 500 + D] 500 mg-10 mcg (400 unit) Tablet 1 tab PO TID Myrbetriq 50 mg tablet extended release 24 hr 50 mg PO QAM Systane (PF) 0.4-0.3 % Dropperette 1 drp OPHTHALMIC (EYE) QID PRN (Reason: Dry Eye(S)) fexofenadine 180 mg Tablet 180 mg PO HS metoprolol succinate 25 mg tablet extended release 24 hr 12.5 mg PO QAM Discontinued furosemide 20 mg tablet 20 mg PO DIRECTED PRN (Reason: Edema) amiodarone 200 mg tablet 200 mg PO QAM Discharge Orders: Discharge Order (Routine); Ordered 10/05/22 Ordered By: Yovani Gill/Other Patient Handouts: Eating Heart-Healthy Foods Admission Data Admit Date/Time: 09/30/22 19:37 Attending Provider: Yovani Hurst Admit Provider: Eleanor Cano Primary Care Provider: Eliazar Reis Other Providers: Yovani Hurst ; Jostin Friedman ; Darnell Mcmillan ; [facility]
== END 2022-10-05 16:13 | DRG 291 ==
LOC: ED 16:56 → SUATTDRO 19:37 → 2N 19:37
DX: J90 Pleural effusion, not elsewhere classified; D69.6 Thrombocytopenia, unspecified; I11.0 Hypertensive heart disease with heart failure; D47.2 Monoclonal gammopathy; J96.01 Acute respiratory failure with hypoxia; E87.6 Hypokalemia; I48.0 Paroxysmal atrial fibrillation; K21.9 Gastro-esophageal reflux disease without esophagitis; I50.33 Acute on chronic diastolic (congestive) heart failure; B96.20 Unspecified Escherichia coli [E. coli] as the cause of diseases classified elsewhere; I24.8 Other forms of acute ischemic heart disease; Z95.2 Presence of prosthetic heart valve; N39.0 Urinary tract infection, site not specified; I45.10 Unspecified right bundle-branch block; I45.2 Bifascicular block; I44.4 Left anterior fascicular block; Z79.82 Long term (current) use of aspirin

== ENCOUNTER 2024-04-23 14:26 | Inpatient (IN) ==
--- NOTE | 2024-04-23 16:14 | Emergency Department Note ---
History of Present Illness General Chief complaint: Fall Stated complaint: FALL Time Seen by Provider: 04/23/24 15:57 History of Present Illness This is an 88-year-old female presenting to the emergency department via EMS from home for evaluation of multiple falls over the past week. Patient is typically fairly ambulatory with a walker, and is able to go up and down a flight of stairs to get to her bedroom. Over the past week the patient has had progressive weakness in her legs and difficulty standing, pivoting, and standing/sitting. The patient does live with family who are in the house essentially full-time and assist in caregiving. The patient had an episode a week ago where she was choking on a pill and family did perform Heimlich maneuver. Since this occurred patient has had some mild very lateral left-sided chest discomfort. The patient went to sit in her chair today, and fell between the chair and the walker, causing skin tear injury to her right arm. Patient is not on blood thinners. She does not have significant complaints herself other than the very lateral left side chest discomfort and the new pain in her right arm. Overall discomfort is rated a 2/10. Home Medications Medication Instructions Recorded Confirmed Type magnesium oxide 500 mg PO QAM 07/15/20 04/23/24 History pravastatin 80 mg tablet 80 mg PO HS 07/15/20 04/23/24 History prednisolone acetate 1 % eye 1 drp OPB TID 07/15/20 04/23/24 History drops,suspension solifenacin 5 mg tablet 5 mg PO QAM 07/15/20 04/23/24 History acetaminophen 500 mg tablet 1,000 mg PO BID Pain 06/13/21 04/23/24 History (Tylenol Extra Strength) ascorbic acid (vitamin C) 500 mg 500 mg PO QAM 06/13/21 04/23/24 History tablet (Vitamin C) ferrous sulfate 325 mg (65 mg 325 mg PO Q OTHER DAY 06/13/21 04/23/24 History iron) tablet (iron) fexofenadine 180 mg tablet 180 mg PO HS 07/06/21 04/23/24 History peg 400-propylene glycol (PF) 0.4 1 drp ophthalmic (eye) QID PRN Dry 07/06/21 04/23/24 History %-0.3 % eye drops in a dropperette Eye(S) (Systane (PF)) metoprolol succinate 25 mg 12.5 mg PO QAM 08/07/21 04/23/24 History tablet,extended release 24 hr aspirin 81 mg tablet,delayed 81 mg PO QAM 09/30/22 04/23/24 History release calcium 500 mg (as 1 tab PO BID 09/30/22 04/23/24 History carbonate)-vitamin D3 10 mcg (400 unit) tablet (Calcium 500 + D) potassium chloride 10 mEq 10 meq PO TID 09/30/22 04/23/24 History tablet,extended release(part/cryst) (Klor-Con M) spironolactone 25 mg tablet 12.5 mg (1/2 x 25 mg) PO DAILY #30 10/05/22 04/23/24 Rx tabs ondansetron 4 mg disintegrating 4 mg PO Q6H PRN Nausea/Vomiting 04/25/23 04/23/24 History tablet amiodarone 200 mg tablet 200 mg PO QAM 01/26/24 04/23/24 History vibegron 75 mg tablet (Gemtesa) 75 mg PO DAILY 01/26/24 04/23/24 History calcium 500 mg tablet 500 mg PO QAM 04/23/24 04/23/24 History docusate sodium 100 mg capsule 100 mg PO .INSTRUCTIONS 04/23/24 04/23/24 History (Colace) furosemide 20 mg tablet 20 mg PO QAM PRN Leg 04/23/24 04/23/24 History Swelling/Weight Gain psyllium husk 0.4 gram capsule 0.4 g PO DAILY 04/23/24 04/23/24 History (Metamucil) Allergies Allergy/AdvReac Type Severity Reaction Status Date / Time simvastatin AdvReac Severe ELEVATED Verified 04/18/24 13:24 LIVER ENZYMES oxaprozin AdvReac Intermediate MAKES FEEL Verified 04/18/24 13:24 DEPRESSED Past Med/Surg History Problem List Acute UTI (urinary tract infection) Hypomagnesemia Frequent falls Hypercalcemia (Acute) Chronic venous insufficiency (Chronic) Traumatic open wound of lower leg (Acute) Hypokalemia Generalized weakness (Acute) Acute on chronic heart failure with preserved ejection fraction (HFpEF) Elevated troponin (Acute) Hypoxia (Acute) CHF (congestive heart failure) (Acute) Nausea (Acute) Surgical wound, non healing (Acute) Venous insufficiency of both lower extremities (Chronic) Infected hematoma (Acute) Infected wound Syncope Cellulitis of leg, right DVT prophylaxis Thrombocytopenia Anemia Hematoma Laceration of lip (Acute) Ambulatory dysfunction (Acute) Acute knee pain (Acute) Fall (Acute) MGUS (monoclonal gammopathy of unknown significance) Paroxysmal atrial fibrillation (Acute) controlled w/ meds Dr Meyer Chronic diastolic CHF (congestive heart failure) Medical History Seasonal allergies Incontinence of urine Nausea and vomiting after administration of anesthetic agent History of COVID-19 2020- no hosp; resolved GERD (gastroesophageal reflux disease) HLD (hyperlipidemia) HTN (hypertension) Surgical History Hx of cardiac catheterization ~2018, prior to valve replacement, no stents History of esophagogastroduodenoscopy (EGD) Hx of colonoscopy H/O: hysterectomy S/P repair of paraesophageal hernia History of total knee arthroplasty S/P aortic valve replacement with bioprosthetic valve ~2018- LINDA Guzman Family History Other Cancer Diabetes Social History Smoking Status: Never smoker Second Hand Exposure: No; Do You Dip or Chew Tobacco: No; Hx Alcohol Use: No Hx Substance Use: No Preferred Language: Pashto Communication Ability: Effective Visual Impairment: Severely Limited Hearing Ability: Hard of Hearing Fermentation Manager Required: No Beliefs That Will Affect Care: None marital status: / Current Living Situation: Family Current Living Situation Comment: lives with daughter current occupational status: retired How many Children do You have: 3 How many Children do You have Comment: all able to assist with care Feels Safe at Home: Yes Diet: regular caffeine: Yes during the past year weight has: remained stable Assistive Devices: Cane, Glasses and Walker Review of Systems A total of 10 systems reviewed and were otherwise negative Physical Exam Vital Signs Vital Signs - 24 hr 04/23/24 14:32 04/23/24 16:25 04/23/24 16:27 Temperature 36.6 C Temperature Source Oral Pulse Rate 88 84 Pulse Rate [Apical] 87 Pulse Rate from SpO2 Sensor Respiratory Rate 20 20 Respiratory Effort / Characteristics Non-Labored Spontaneous Respiratory Depth Normal Blood Pressure 162/96 H Blood Pressure [Right Arm] 130/91 Blood Pressure Mean 118 Blood Pressure Mean [Right Arm] 104 Pulse Oximetry 98 93 94 Oxygen Delivery Method Room Air Room Air Room Air Sepsis Recent Fever Within 48 Hours No Sepsis New/Unexplained Change in Mental Status N/A Sepsis Action Taken by Nursing No Action Required 04/23/24 17:00 04/23/24 18:00 04/23/24 18:03 Temperature Temperature Source Pulse Rate 87 Pulse Rate [Apical] 76 Pulse Rate from SpO2 Sensor 91 H Respiratory Rate 22 21 Respiratory Effort / Characteristics Respiratory Depth Blood Pressure 127/64 Blood Pressure [Right Arm] 133/80 Blood Pressure Mean 82 Blood Pressure Mean [Right Arm] 97 Pulse Oximetry 93 94 Oxygen Delivery Method Room Air Sepsis Recent Fever Within 48 Hours Sepsis New/Unexplained Change in Mental Status Sepsis Action Taken by Nursing VITALS: Vitals are noted on the nurse's note and reviewed by myself. Vital signs stable. GENERAL: Elderly white female who is pleasant and in no acute distress HEAD: Normocephalic atraumatic. NECK: Supple without nuchal rigidity. No lymphadenopathy. No thyromegaly. Cervical spine is nontender. HEART: Irregularly irregular LUNGS: Clear to auscultation bilaterally without wheezes, rales or rhonchi. No retractions or accessory muscle use. CHEST WALL: Tenderness noted along the lateral left chest wall without crepitus or flail segment ABDOMEN: Positive normal bowel sounds x 4. Soft, nontender, without masses or organomegaly. No guarding or rebound tenderness. MUSCULOSKELETAL: No muscle atrophy, erythema, or edema noted. Full range of motion in all extremities. There is a skin tear injury measuring roughly 3 x 4 cm to the right forearm. No distinct laceration. Neurovascular status intact throughout. NEURO: Patient was alert and oriented to person place and time. CN II through XII grossly intact. GCS 15 Medical Decision Making Differential Diagnosis Differential diagnosis: Etiologies such as UTI, benign positional vertigo, labrynthitis, dehydration, hypovolemia, anemia, tumor, infection, hypoglycemia, electrolyte abnormalities, cardiac sources, toxicological sources, central neurologic process, as well as others were entertained. Laboratory Data 04/23/24 16:18 04/23/24 17:33 Lab Results 04/23/24 04/23/24 04/23/24 Range/Units 16:18 17:33 17:34 WBC 6.74 (4.8-10.8) K/ul RBC 3.93 L (4.20-5.40) M/uL Hgb 13.3 (12.0-16.0) g/dl Hct 39.5 (37.0-47.0) % MCV 100.5 H (80.0-100.0) fL MCH 33.8 (25.0-34.0) pg MCHC 33.7 (32.0-36.0) g/dL RDW Std Deviation 50.8 H (36.4-46.3) fL RDW Coeff of Tung 13.6 (11.5-14.5) % Plt Count 98 L (130-400) K/uL MPV 10.4 (9.4-12.4) fL Immature Gran % (Auto) 0.7 % Neut % (Auto) 68.4 % Lymph % (Auto) 16.3 % Bonner % (Auto) 13.2 % Eos % (Auto) 1.0 % Baso % (Auto) 0.4 % Neut # (Auto) 4.60 (1.40-6.50) K/uL Lymph # (Auto) 1.10 L (1.20-3.40) K/uL Bonner # (Auto) 0.89 H (0.11-0.59) K/uL Eos # (Auto) 0.07 (0.00-0.50) K/uL Baso # (Auto) 0.03 (0.00-0.20) K/uL Immature Gran # (Auto) 0.05 (0.01-0.20) K/uL Sodium 133 L (136-145) mmol/L Potassium TNP 3.6 Chloride 97 L (98-107) mmol/L Carbon Dioxide 33 H (21-32) mmol/L Anion Gap 3 (3-11) BUN 21 (6-23) mg/dl Creatinine 0.92 (0.6-1.2) mg/dl Est Cr Clr Drug Dosing 36.8 ml/min eGFR 60.64 BUN/Creatinine Ratio 22.8 H (10-20) Glucose 98 (70-99(Fasting)) mg/dl Calcium 13.4 H* (8.6-10.3) mg/dl Magnesium 1.3 L (1.7-2.4) mg/dl Total Bilirubin 0.7 (0.2-1.0) mg/dl AST TNP 13 ALT 11 (7-52) U/L Alkaline Phosphatase 62 (34-104) U/L Troponin I High Sens 17.3 H (0-14) pg/ml B-Natriuretic Peptide 330 H (0-100) pg/ml Total Protein 9.8 H (6.0-8.3) gm/dl Albumin 2.8 L (3.4-5.0) gm/dl Globulin 7.0 H (2.5-4.0) gm/dl Albumin/Globulin Ratio 0.4 L (0.9-2) 25-OH Vitamin D Total 34.0 (30-100) ng/ml TSH 2.768 (0.300-4.500) uIu/ml PTH Intact 4.8 L (12.0-88.0) pg/ml Adenovirus (PCR) Not Detected (NotDetected) B. pertussis DNA (PCR) Not Detected (NotDetected) B.parapertussis DNA PCR Not Detected (NotDetected) C. pneumoniae DNA (PCR) Not Detected (NotDetected) Coronavirus OC43 (PCR) Not Detected (NotDetected) Coronavirus HKU1 (PCR) Not Detected (NotDetected) Coronavirus 229E (PCR) Not Detected (NotDetected) SARS-CoV-2 (PCR) Not Detected (NotDetected) Coronavirus NL63 (PCR) Not Detected (NotDetected) Human Metapneumovir PCR Not Detected (NotDetected) Influenza Type A (PCR) Not Detected (NotDetected) Influenza Type B (PCR) Not Detected (NotDetected) M. pneumoniae (PCR) Not Detected (NotDetected) Parainfluenza 1 (PCR) Not Detected (NotDetected) Parainfluenza 2 (PCR) Not Detected (NotDetected) Parainfluenza 3 (PCR) Not Detected (NotDetected) Parainfluenza 4 (PCR) Not Detected (NotDetected) RSV (PCR) Not Detected (NotDetected) Entero/Rhino (PCR) Not Detected (NotDetected) Imaging Data Radiologist's Impression: Chest X-Ray 04/23/24 16:09 EXAM: X-ray chest one-view portable CLINICAL HISTORY: Weakness PRIORS: 09/30/2022 TECHNIQUE: X-ray chest one-view portable FINDINGS: The chest is well-expanded. Fullness of the right hilum, unchanged. Median sternotomy wires, unchanged. No airspace consolidation, effusion or congestive changes. Heart size is normal. No pneumothorax. Trachea is patent. Osseous structures demonstrate no acute abnormality. No radiopaque foreign body. IMPRESSION: No plain film evidence of an acute cardiopulmonary process. Electronically signed by Emmie Campuzano 04-23-2024 6:12 PM Forearm X-Ray 04/23/24 16:09 EXAMINATION: X-ray forearm right 2 view CLINICAL HISTORY: Fall PRIORS: None TECHNIQUE: Frontal, lateral and oblique views right forearm FINDINGS: Moderate osseous demineralization noted. A intravenous device noted projection of the antecubital fossa. Alignment is maintained. No acute fracture or dislocation. No soft tissue swelling. Overlying bandage material noted. IMPRESSION: No plain film evidence of an acute osseous abnormality. Electronically signed by Emmie Campuzano 04-23-2024 6:13 PM ECG Data Attestation: I personally reviewed and interpreted this ECG as follows: Indication: + weakness Additional Comments: Atrial fibrillation at 83 bpm Right bundle branch block No acute ST elevation Questionable depression in lead III When compared to EKG 07 March 2023 atrial fibrillation has replaced sinus rhythm MDM Narrative Physical exam and history were performed. Nursing notes, EMR, and Medication List were personally reviewed. No social concerns were identified as barriers to patients care. Patient appears to have increasing weakness over the past week. She recently began falling and does have skin tear to her right arm. Patient herself feels weak in the legs but does not have significant other complaints. IV access was established and labs were obtained. X-rays were performed. An order was placed for continuous cardiac monitoring. The monitor shows a rate of 84 with atrial fibrillation rhythm. Patient's blood work is as above and was reviewed. She does not have a significantly elevated white blood cell count or gross anemia. Transaminases are not diagnostic. Troponin is slightly elevated at 17.3, however she has had elevated troponins in the past and this may be chronic for her she is not having distinct chest pain. BNP is 330. Chest x-ray and right arm x-ray do not show acute process per my and radiology interpretation. The patient's calcium is markedly elevated at 13.4, with an ionized calcium of 2.0. Magnesium is also low at 1.3. These do seem to be new findings. PTH is low at 4.8. Overall patient does not appear well for discharge home. She is hypercalcemic of unknown etiology with evolving weakness over the past week. Escalation of care is necessary for the patient. Case was discussed with my attending as well as the on-call hospitalist team. Please see the hospitalist team dictation for further patient course, plan, disposition. The chart was completed utilizing [employer] Speech Voice Recognition Software. Grammatical errors, random word insertions, pronoun errors, and incomplete sentences are an occasional consequence of this system due to software limitations, ambient noise, and hardware issues. Any formal questions or concerns about the content, text, or information contained within the body of this dictation should be directly addressed to the provider for clarification. Impression & Plan Hypercalcemia, Fall, Paroxysmal atrial fibrillation, Elevated troponin, Generalized weakness Discharge Plan Visit Data Chief Complaint: Fall Stated Complaint: FALL ED Provider: Jorge Ramos ED Midlevel Provider: Shon Barrera Discharge Problem: Hypercalcemia, Fall, Paroxysmal atrial fibrillation, Elevated troponin, Generalized weakness Discharge Instructions Interventions: ED Discharge Assessment Last Done: 04/23/24 21:01
[2024-04-23 16:48] LABS: Basophils # (auto) 0.03 K/uL (0.00-0.20); Basophils % (auto) 0.4 %; Eosinophils # (auto) 0.07 K/uL (0.00-0.50); Hematocrit (blood only) 39.5 % (37.0-47.0); Hemoglobin 13.3 g/dl (12.0-16.0); Immature Granulocytes # (auto) 0.05 K/uL (0.01-0.20); Immature Granulocytes % (auto) 0.7 %; Lymphocytes % (auto) 16.3 %; Mean Corpuscular Hemoglobin 33.8 pg (25.0-34.0); Mean Corpuscular Hgb Conc 33.7 g/dL (32.0-36.0); Mean Corpuscular Volume 100.5 fL (80.0-100.0); Mean Platelet Volume 10.4 fL (9.4-12.4); Monocytes # (auto) 0.89 K/uL (0.11-0.59); Monocytes % (auto) 13.2 %; Neutrophils % (auto) 68.4 %; Platelet Count 98 K/uL (130-400); RDW Coefficient of Variation 13.6 % (11.5-14.5); RDW Standard Deviation 50.8 fL (36.4-46.3); Red Blood Count 3.93 M/uL (4.20-5.40); White Blood Count 6.74 K/ul (4.8-10.8)
[2024-04-23 17:06] LABS: Troponin I High Sensitivity 17.3 pg/ml (0-14)
[2024-04-23 17:20] LABS: Alanine Aminotransferase 11 U/L (7-52); Albumin Globulin Ratio 0.4 (0.9-2); Albumin Level 2.8 gm/dl (3.4-5.0); Alkaline Phosphatase 62 U/L (34-104); Anion Gap 3 (3-11); BUN Creatinine Ratio 22.8 (10-20); Bilirubin,Total 0.7 mg/dl (0.2-1.0); Blood Urea Nitrogen 21 mg/dl (6-23); Calcium 13.4 mg/dl (8.6-10.3); Carbon Dioxide 33 mmol/L (21-32); Chloride 97 mmol/L (98-107); Creatinine Clr Calc Pharmacy 36.8 ml/min; Glucose 98 mg/dl (70-99(Fasting)); Magnesium 1.3 mg/dl (1.7-2.4); Sodium 133 mmol/L (136-145); Thyroid Stimulating Hormone 2.768 uIu/ml (0.300-4.500); Total Protein 9.8 gm/dl (6.0-8.3)
[2024-04-23 17:28] LABS: Adenovirus PCR Not Detected (NotDetected); Bordetella parapertussis PCR Not Detected (NotDetected); Bordetella pertussis PCR Not Detected (NotDetected); Chlamydia pneumoniae PCR Not Detected (NotDetected); Coronavirus 229E PCR Not Detected (NotDetected); Coronavirus CoV-2 (COVID19)PCR Not Detected (NotDetected); Coronavirus HKU1 PCR Not Detected (NotDetected); Coronavirus NL63 PCR Not Detected (NotDetected); Coronavirus OC43PCR Not Detected (NotDetected); Human Metapneumovirus PCR Not Detected (NotDetected); Influenza A PCR Not Detected (NotDetected); Influenza B PCR Not Detected (NotDetected); Mycoplasma pneumoniae PCR Not Detected (NotDetected); Parainfluenza Virus 1 PCR Not Detected (NotDetected); Parainfluenza Virus 2 PCR Not Detected (NotDetected); Parainfluenza Virus 3 PCR Not Detected (NotDetected); Parainfluenza Virus 4 PCR Not Detected (NotDetected); Respiratory Syncytial VirusPCR Not Detected (NotDetected); Rhinovirus/Enterovirus PCR Not Detected (NotDetected)
--- NOTE | 2024-04-23 18:12 | XRay Report ---
EXAM: X-ray chest one-view portable CLINICAL HISTORY: Weakness PRIORS: 09/30/2022 TECHNIQUE: X-ray chest one-view portable FINDINGS: The chest is well-expanded. Fullness of the right hilum, unchanged. Median sternotomy wires, unchanged. No airspace consolidation, effusion or congestive changes. Heart size is normal. No pneumothorax. Trachea is patent. Osseous structures demonstrate no acute abnormality. No radiopaque foreign body. IMPRESSION: No plain film evidence of an acute cardiopulmonary process. Electronically signed by Emmie Campuzano 04-23-2024 6:12 PM
--- NOTE | 2024-04-23 18:13 | XRay Report ---
EXAMINATION: X-ray forearm right 2 view CLINICAL HISTORY: Fall PRIORS: None TECHNIQUE: Frontal, lateral and oblique views right forearm FINDINGS: Moderate osseous demineralization noted. A intravenous device noted projection of the antecubital fossa. Alignment is maintained. No acute fracture or dislocation. No soft tissue swelling. Overlying bandage material noted. IMPRESSION: No plain film evidence of an acute osseous abnormality. Electronically signed by Emmie Campuzano 04-23-2024 6:13 PM
[2024-04-23 18:15] LABS: Potassium 3.6 mmol/L (3.5-5.1)
--- NOTE | 2024-04-23 18:27 | History & Physical Report ---
Date of Service April 23, 2024 Assessment & Plan (1) Frequent falls: (2) Ambulatory dysfunction: (3) Hypercalcemia: (4) MGUS (monoclonal gammopathy of unknown significance): (5) Acute UTI (urinary tract infection): (6) Hypomagnesemia: Plan Shannon Salazar is an 88-year-old female with past medical history significant for dyslipidemia, hypertension, paroxysmal atrial fibrillation s/p left atrial appendage ligation [not on anticoagulation], chronic diastolic CHF, pulmonary hypertension, moderate tricuspid regurgitation, GERD, urge incontinence, generalized osteoarthritis, age-related osteoporosis, monoclonal gammopathy of unknown significance (MGUS), severe aortic stenosis s/p aortic valve replacement in 2017, paraesophageal hernia s/p surgical repair, SUZETTE and benign paroxysmal vertigo who presented to the ED via EMS on 04/23/24 for evaluation of generalized weakness and ambulatory dysfunction. Patient was noted to have hypercalcemia on presenting laboratory evaluation. She is being admitted for evaluation + management of the following: Recent Mechanical Falls Generalized Weakness, Ambulatory Dysfunction: Generalized weakness may be directly related to hypercalcemia and UTI as outlined below. CXR unremarkable. Patient with at least 2 falls over the past few weeks. Sustained a R forearm skin tear in most recent fall prior to presenting to the ED - wound care consulted; R forearm XR negative for fractures . Patient did not sustain head trauma during this most recent fall - however will obtain head CT given that she appeared quite lethargic on exam in the ED; lethargy can be attributed to hypercalcemia as well. Will get PT/OT evaluations. Patient currently living at home with her daughter, Nicole, whom is her primary retort kiln burner. Fall precautions on board. Recent Episode of Choking, L-Sided Rib Pain: Patient had an episode of choking last week where her daughter had to perform the Heimlich maneuver. Patient with no significant history of swallowing difficulties before this. During this incident of choking, she was attempting to swallow one of her pills. She has not had any further occurrences of this issue since then. Will obtain speech therapy evaluation. Started on HH, minced/moist diet for now pending recommendations from speech therapy. Aspiration precautions on board. Patient has been experiencing some L-sided rib pain since having the Heimlich maneuver performed. Will obtain XR of L ribs. Hypercalcemia, MGUS: Patient's daughter reports she was diagnosed with MGUS back in 2019 or 2020; she follows with [facility] hematology/oncology. Serum calcium level noted to be 10.2 back in 03/2024; serum calcium elevated at 13.4 upon presentation today. Corrected calcium ISO hypoalbuminemia = 14.4; ionized calcium level = 2. Intact PTH low at 4.8; 25-OH vit D total level WNL. Will check PTHrP, 1,25-dihydroxyvitamin D level. Alk Phos WNL. Discussed case with Dr. Howell over the phone --> recommended 240mg SQ calcitonin Q8H for at least 2 days + 150cc/hr NSS (wide open for now). Recheck CMP in AM. Formal nephrology consult pending. Holding home calcium supplements for now. Acute UTI: Initial laboratory evaluation without leukocytosis. VSS on admission without any evidence of sepsis. Respiratory BioFire panel negative. UA, however, concerning for infection. Patient without any urinary complaints however will cover with IV Rocephin for now pending urine culture results. Likely asymptomatic bacteriuria. Patient has previously grown E. coli and Proteus mirabilis both sensitive to Rocephin in the past per chart review. UTI could certainly be contributing to her generalized weakness. Hypomagnesemia: Mag 1.3 on admission - will replete w/ 1g IV mag x 2 bags. Can continue home mag supplement. Continue to monitor her electrolytes closely and manage PRN. Chronic Diastolic CHF Aortic Stenosis S/P AVR in 2017: Echo from 11/2023 noted moderately increased concentric LV wall thickness, normal LV wall motion, LVEF = 55-59%, severe biatrial enlargement, severe mitral annular calcification, moderately calcified mitral valve leaflets, moderate mitral regurgitation, severe tricuspid regurgitation and mildly elevated pulmonary artery systolic pressure of 45-50mmHg. Euvolemic on exam at time of admission. CXR on admission was negative for any evidence of pulmonary edema. Will hold home diuretics including scheduled spironolactone and PRN Lasix for now. Communication order placed to monitor for signs of pulmonary edema Q2H given IVF resuscitation ISO hypercalcemia as per above - relayed to nursing staff in ED via TT. Monitor daily weights, I&Os QS. HH, low sodium diet already on board. Fluid restriction of 2L/day. Paroxysmal AFib S/P Left Atrial Appendage Ligation, HTN: Noted to be in afib on EKG as well as telemetry monitoring in the ED. Not on anticoagulation s/p left atrial appendage ligation procedure. She is currently rate-controlled. Continue home metoprolol succinate + amiodarone. Continuous telemetry monitoring on board. Elevated Troponin, Prolonged QTc: Initial trop 17.3, repeat trop 22.6; patient without any cardiac complaints. EKG on admission with no acute ST changes. Likely demand ischemia ISO above however will continue to trend trop Q6H x2. Obtain EKG daily x 2. EKG w/ chest pain PRN. QTc was noted to prolonged at 507ms on admitting EKG. Can utilize Phenergan PRN for nausea/vomiting. Continue to monitor QTc and avoid QTc-prolonging agents as able. Other Chronic Medical Conditions: * Chronic BLE Venous Insufficiency - Follows with [facility]. Inpatient wound care consulted. No signs of cellulitis on exam. * HLD - Continue statin. Urge Incontinence - Continue Vesicare, Gemtesa. SUZETTE - Hgb stable, baseline Hgb ~9-11. Continue iron supplement. DVT Prophylaxis: SCDs/TEDs for now. Code Status: FULL CODE - As per discussion with the patient at bedside. PCP: Eliazar Reis MD Disposition: Admit to Med/Telemetry for further inpatient evaluation and management. Patient's daughter, Nicole, would like routine updates. She can be reached at the following phone #: [phone]. Patient seen in collaboration with Dr. Schneider. Please see addendum. I spent a total of 65 minutes coordinating, documenting, and providing care for this patient excluding time spent in the performance of separately billed services. This included personally reviewing all current laboratories and imaging studies, medical reconciliation, outpatient chart review and discussion with specialists. This chart was completed in part utilizing Speech Voice Recognition Software. Grammatical errors, random word insertions, pronoun errors, and incomplete sentences are an occasional consequence of this system due to software limitations, ambient noise, and hardware issues. Any formal questions or concerns about the content, text, or information contained within the body of this dictation should be directly addressed to the provider for clarification. History of Present Illness Chief Complaint: Fall, Generalized Weakness Primary Care Provider: Eliazar Reis MD Shannon Salazar is an 88-year-old female with past medical history significant for dyslipidemia, hypertension, paroxysmal atrial fibrillation s/p left atrial appendage ligation [not on anticoagulation], chronic diastolic CHF, pulmonary hypertension, moderate tricuspid regurgitation, GERD, urge incontinence, generalized osteoarthritis, age-related osteoporosis, monoclonal gammopathy of unknown significance (MGUS), severe aortic stenosis s/p aortic valve replacement in 2017 and benign paroxysmal vertigo who presented to the ED via EMS on 04/23/24 for evaluation of generalized weakness and ambulatory dysfunction. History obtained from the patient, family at bedside and associated chart review. Family reports that the patient has been feeling progressively weaker over the past few weeks. Of note, patient had to have the Heimlich maneuver performed on her by her daughter last week as she had been choking on one of her pills. Patient has been endorsing left-sided rib pain since that incident which her daughter believes may be contributing to her progressive weakness. Patient currently lives at home with her daughter, Nicole. Her daughter works from home and is her primary retort kiln burner. Patient typically uses a walker for ambulation however she has been having significant difficulty with falls as of lately. Patient's most recent fall was today where she was attempting to sit down and her recliner but ultimately missed the seat. Patient did not hit her head during this fall; she did, however, sustain a skin tear injury to her right forearm region. Patient offers no other complaints at this time except for the left- sided rib pain. Patient had a minor mechanical fall last week getting out of the shower but thankfully she sustained no injuries during this incident. At baseline, patient is typically fairly ambulatory with her walker and able to go up and down a flight of stairs to get to her bedroom on the second floor without any significant difficulty. No recent fevers, chills or body aches. Patient mason es any chest pain or SOB. Allergies Allergy/AdvReac Type Severity Reaction Status Date / Time simvastatin AdvReac Severe ELEVATED Verified 04/18/24 13:24 LIVER ENZYMES oxaprozin AdvReac Intermediate MAKES FEEL Verified 04/18/24 13:24 DEPRESSED Home Medications Medication Instructions Recorded Confirmed Type magnesium oxide 500 mg PO QAM 07/15/20 04/23/24 History pravastatin 80 mg tablet 80 mg PO HS 07/15/20 04/23/24 History prednisolone acetate 1 % eye 1 drp OPB TID 07/15/20 04/23/24 History drops,suspension solifenacin 5 mg tablet 5 mg PO QAM 07/15/20 04/23/24 History acetaminophen 500 mg tablet 1,000 mg PO BID Pain 06/13/21 04/23/24 History (Tylenol Extra Strength) ascorbic acid (vitamin C) 500 mg 500 mg PO QAM 06/13/21 04/23/24 History tablet (Vitamin C) ferrous sulfate 325 mg (65 mg 325 mg PO Q OTHER DAY 06/13/21 04/23/24 History iron) tablet (iron) fexofenadine 180 mg tablet 180 mg PO HS 07/06/21 04/23/24 History peg 400-propylene glycol (PF) 0.4 1 drp ophthalmic (eye) QID PRN Dry 07/06/21 04/23/24 History %-0.3 % eye drops in a dropperette Eye(S) (Systane (PF)) metoprolol succinate 25 mg 12.5 mg PO QAM 08/07/21 04/23/24 History tablet,extended release 24 hr aspirin 81 mg tablet,delayed 81 mg PO QAM 09/30/22 04/23/24 History release calcium 500 mg (as 1 tab PO BID 09/30/22 04/23/24 History carbonate)-vitamin D3 10 mcg (400 unit) tablet (Calcium 500 + D) potassium chloride 10 mEq 10 meq PO TID 09/30/22 04/23/24 History tablet,extended release(part/cryst) (Klor-Con M) spironolactone 25 mg tablet 12.5 mg (1/2 x 25 mg) PO DAILY #30 10/05/22 04/23/24 Rx tabs ondansetron 4 mg disintegrating 4 mg PO Q6H PRN Nausea/Vomiting 04/25/23 04/23/24 History tablet amiodarone 200 mg tablet 200 mg PO QAM 01/26/24 04/23/24 History vibegron 75 mg tablet (Gemtesa) 75 mg PO DAILY 01/26/24 04/23/24 History calcium 500 mg tablet 500 mg PO QAM 04/23/24 04/23/24 History docusate sodium 100 mg capsule 100 mg PO .INSTRUCTIONS 04/23/24 04/23/24 History (Colace) furosemide 20 mg tablet 20 mg PO QAM PRN Leg 04/23/24 04/23/24 History Swelling/Weight Gain psyllium husk 0.4 gram capsule 0.4 g PO DAILY 04/23/24 04/23/24 History (Metamucil) Past Med/Surg History Problem List Acute UTI (urinary tract infection) Hypomagnesemia Frequent falls Hypercalcemia (Acute) Chronic venous insufficiency (Chronic) Traumatic open wound of lower leg (Acute) Hypokalemia Generalized weakness (Acute) Acute on chronic heart failure with preserved ejection fraction (HFpEF) Elevated troponin (Acute) Hypoxia (Acute) CHF (congestive heart failure) (Acute) Nausea (Acute) Surgical wound, non healing (Acute) Venous insufficiency of both lower extremities (Chronic) Infected hematoma (Acute) Infected wound Syncope Cellulitis of leg, right DVT prophylaxis Thrombocytopenia Anemia Hematoma Laceration of lip (Acute) Ambulatory dysfunction (Acute) Acute knee pain (Acute) Fall (Acute) MGUS (monoclonal gammopathy of unknown significance) Paroxysmal atrial fibrillation (Acute) controlled w/ meds Dr Meyer Chronic diastolic CHF (congestive heart failure) Medical History Seasonal allergies Incontinence of urine Nausea and vomiting after administration of anesthetic agent History of COVID-19 2020- no hosp; resolved GERD (gastroesophageal reflux disease) HLD (hyperlipidemia) HTN (hypertension) Surgical History Hx of cardiac catheterization ~2018, prior to valve replacement, no stents History of esophagogastroduodenoscopy (EGD) Hx of colonoscopy H/O: hysterectomy S/P repair of paraesophageal hernia History of total knee arthroplasty S/P aortic valve replacement with bioprosthetic valve ~2018- [facility] [place] Family History Other Cancer Diabetes Social History Smoking Status: Never smoker Second Hand Exposure: No; Do You Dip or Chew Tobacco: No; Hx Alcohol Use: No Hx Substance Use: No Preferred Language: Upper Sorbian Communication Ability: Effective Visual Impairment: Severely Limited Hearing Ability: Hard of Hearing Medical Transport Specialist Required: No Beliefs That Will Affect Care: None marital status: / Current Living Situation: Family Current Living Situation Comment: lives with daughter current occupational status: retired How many Children do You have: 3 How many Children do You have Comment: all able to assist with care Feels Safe at Home: Yes Diet: regular caffeine: Yes during the past year weight has: remained stable Assistive Devices: Cane, Glasses and Walker Review of Systems Review of Systems: At least ten systems reviewed and negative, except as noted in the HPI. Physical Exam Physical Exam: General: WD/WN, vitals as above, NAD, laying down in bed, pleasant, conversing appropriately. A+Ox3 but appears tired. HEENT: Normocephalic, atraumatic. Conjunctivae normal. External ear and nose normal, oropharynx somewhat dry. Respiratory: Normal respiratory effort, lungs clear to auscultation, no wheeze/rales/rhonchi. No accessory muscle use. Cardiovascular: Regular rate, irregularly irregular rhythm, no BLE edema. Vessels: No JVD. Abdomen/GI: Normal bowel sounds, soft, nondistended, nontender to palpation in all quadrants. Extremities/Musculoskeletal: Chronic venous insufficiency changes of BLE, bandaging intact on RLE wound. Neurologic: No overt focal deficits, CN's II-XI not formally tested but appear grossly intact bilaterally. Results & Data Results & Data Vital Signs (Past 12 Hours) Vital Signs Temp Pulse Pulse Resp BP BP Pulse Ox 04/23/24 18:03 87 21 94 04/23/24 18:00 127/64 04/23/24 17:00 76 22 133/80 93 04/23/24 16:27 87 20 130/91 94 04/23/24 16:25 84 93 04/23/24 14:32 36.6 C 88 20 162/96 H 98 O2 Del Method 04/23/24 18:03 04/23/24 18:00 04/23/24 17:00 Room Air 04/23/24 16:27 Room Air 04/23/24 16:25 Room Air 04/23/24 14:32 Room Air Laboratory Results Short CBC 04/23/24 Range/Units 16:18 WBC 6.74 (4.8-10.8) K/ul Hgb 13.3 (12.0-16.0) g/dl Hct 39.5 (37.0-47.0) % Plt Count 98 L (130-400) K/uL BMP 04/23/24 04/23/24 16:18 17:33 Sodium 133 L Potassium TNP 3.6 Chloride 97 L Carbon Dioxide 33 H BUN 21 Creatinine 0.92 Glucose 98 Calcium 13.4 H* Liver Function 04/23/24 04/23/24 04/23/24 Range/Units 16:18 17:33 19:15 Total Bilirubin 0.7 0.7 (0.2-1.0) mg/dl Direct Bilirubin 0.0 (0-0.2) mg/dl AST TNP 13 12 L ALT 11 10 (7-52) U/L Alkaline Phosphatase 62 60 (34-104) U/L Albumin 2.8 L 2.6 L (3.4-5.0) gm/dl Urine 04/23/24 Range/Units 19:40 Urine Color Yellow Urine Appearance Cloudy A (Clear) Urine pH 6.0 (4.5-7.5) Ur Specific [place] 1.011 (1.000-1.030) Urine Protein Trace H (Negative) Urine Glucose (UA) Negative (Negative) Diagnostic Findings Chest X-Ray 04/23/24 16:09 EXAM: X-ray chest one-view portable CLINICAL HISTORY: Weakness PRIORS: 09/30/2022 TECHNIQUE: X-ray chest one-view portable FINDINGS: The chest is well-expanded. Fullness of the right hilum, unchanged. Median sternotomy wires, unchanged. No airspace consolidation, effusion or congestive changes. Heart size is normal. No pneumothorax. Trachea is patent. Osseous structures demonstrate no acute abnormality. No radiopaque foreign body. IMPRESSION: No plain film evidence of an acute cardiopulmonary process. Electronically signed by Emmie Campuzano 04-23-2024 6:12 PM Forearm X-Ray 04/23/24 16:09 EXAMINATION: X-ray forearm right 2 view CLINICAL HISTORY: Fall PRIORS: None TECHNIQUE: Frontal, lateral and oblique views right forearm FINDINGS: Moderate osseous demineralization noted. A intravenous device noted projection of the antecubital fossa. Alignment is maintained. No acute fracture or dislocation. No soft tissue swelling. Overlying bandage material noted. IMPRESSION: No plain film evidence of an acute osseous abnormality. Electronically signed by Emmie Campuzano 04-23-2024 6:13 PM Code Status & VTE Plan Code Status FULL CODE Supervising Physician Co-Signing Physician Notes Attending Addendum: Case reviewed with the advanced practitioner. I have personally performed a history and physical examination on the patient. I have reviewed the advanced practitioner's documentation on the date of service referenced in note, and I agree with, and take responsibility for the plan of care. please refer to her notes for full details patient seen and examined, records reviewed by myself as well on exam, patient seen resting in bed, sitting up somewhat drowsy, tries to answer questions states she feels ok overall has some L sided rib pain no other symptoms VS noted and reviewed oriented x2-3, not in distress, speaks in sentences with no effort nor accessory muscle use normal rate, regular rhythm, no murmurs clear breath sounds bilaterally non distended, soft, nontender no bipedal edema, erythema, warmth no neuro deficits all labs, imaging noted and reviewed ASSESSMENT AND PLAN> WEAKNESS, FALL HYPERCALCEMIA, HYPOMAGNESEMIA history of MGUS hold Ca supplement PTH low discussed with Nephro- Dr. Howell IV NSS, Calcitonin q8h LEFT SIDED RIB PAIN Xray of L ribs: no fracture other diagnoses and plan of care as per advanced practitioner's notes Noah Schneider MD
[2024-04-23 19:57] LABS: Albumin Level 2.6 gm/dl (3.4-5.0); Bilirubin,Total 0.7 mg/dl (0.2-1.0); Total Protein 9.1 gm/dl (6.0-8.3)
[2024-04-23 20:03] LABS: Troponin I High Sensitivity 22.6 pg/ml (0-14)
[2024-04-23 20:18] LABS: Appearance Urine Cloudy (Clear); Bacteria Urine Automated 4+ (None Seen); Bilirubin Urine Negative (Negative); Blood Urine 1+ (Negative); Color Urine Yellow; Glucose Urine UA Negative (Negative); Ketones Urine Negative (Negative); Leukocyte Esterase Urine 1+ (Negative); Nitrite Urine Negative (Negative); Protein Urine Trace (Negative); RBC Urine Automated 0-2 /hpf (0-2); Specific Gravity Urine 1.011 (1.000-1.030); Urobilinogen Urine Negative (Negative)
[2024-04-23] MEDS ORDERED: PROMETHAZINE 6.25 MG/50.25 ML BAG IV PRN (21:46)
[2024-04-23] MEDS ORDERED: MAGNESIUM HYDROXIDE SUSP 30 ML UDC PO PRN (21:46)
[2024-04-23] MEDS: SODIUM CHLORIDE 0.9% 1,000 ML IV SCH (22:11)
[2024-04-23] MEDS: prednisoLONE acetate 1% OP SUSP 5 ML BTL OPB SCH (22:11)
[2024-04-23] MEDS: FEXOFENADINE HCL 180 MG TAB PO SCH (22:12)
[2024-04-23] MEDS: PRAVASTATIN SOD 40 MG TAB PO SCH (22:12)
[2024-04-23] MEDS: POTASSIUM CHLORIDE 10 MEQ TABCR PO SCH (22:15)
[2024-04-23] MEDS: MAGNESIUM SULFATE / D5W 1 GM/100 ML BAG IV SCH (22:15)
[2024-04-23] MEDS: DOCUSATE SODIUM 100 MG CAP PO SCH (22:15)
[2024-04-23] MEDS: cefTRIAXone SODIUM 2,000 MG/50 ML BAG IV SCH (22:43)
--- NOTE | 2024-04-23 22:57 | XRay Report ---
Exam(s): XR LEFT RIBS EXAM: XR Left Ribs and AP Chest, 3 or More Views CLINICAL HISTORY: Reason for exam: L rib pain. TECHNIQUE: Frontal and oblique views of the left ribs and frontal view of the chest. COMPARISON: No relevant prior studies available. FINDINGS: Lungs: Unremarkable. No consolidation. Pleural space: Unremarkable. No pneumothorax. Heart: Unremarkable. No cardiomegaly. Mediastinum: Unremarkable. Normal mediastinal contour. Bones/joints: No radiographically evident fracture. IMPRESSION: No radiographically evident fracture. Electronically signed by: Kyle Richard MD 04/23/24 22:56 PM
[2024-04-23] MEDS: CALCITONIN SALMON 400 UNITS/2 ML SQ SCH (23:02)
--- NOTE | 2024-04-23 23:43 | CT Scan Report ---
Exam(s): CT HEAD Without Contrast EXAM: CT Head Without Intravenous Contrast CLINICAL HISTORY: Reason for exam: Fall. TECHNIQUE: Axial computed tomography images of the head/brain without intravenous contrast. CTDI is 35.72 mGy and DLP is 625.8 mGy-cm. Automated exposure control was utilized for the study. A dose lowering technique was utilized adhering to the principles of ALARA. COMPARISON: No relevant prior studies available. FINDINGS: Brain: No intracranial hemorrhage. Global parenchymal atrophy. No mass-effect or cerebral edema. Ventricles: Unremarkable. Bones/joints: Unremarkable. No fracture. Soft tissues: Unremarkable. Sinuses: No acute sinusitis. Mastoid air cells: Unremarkable as visualized. IMPRESSION: 1. No acute intracranial abnormality. Electronically signed by: Kyle Richard MD 04/23/24 23:43 PM
--- OUTSIDE RECORDS SUMMARY | 2024-04-23 23:47 | External Medical Summary ---
Author Name Unknown Address Unknown Organization [id number] [address] [place] [address] Laboratory Report Ordering Provider Test Date Status KATY GHOSH 03/12/2024 13:57:43 Final Observation Date Value Abnormality Reference (Units ) Status SYNC LEUKOCYTES IN BLOOD BY AUTOMATED COUNT 03/12/2024 13:57:43 6.11 4.00-10.80 (K/uL) Final Segs 03/12/2024 13:57:43 71.6 40.0-75.0 (%) Final Lymphs % 03/12/2024 13:57:43 18.0 18.0-42.0 (%) Final Monos 03/12/2024 13:57:43 9.0 1.0-11.0 (%) Final Eosinophils 03/12/2024 13:57:43 0.0 0.0-6.0 (%) Final Basos 03/12/2024 13:57:43 0.7 0.0-2.0 (%) Final Immature Granulocyte, Percent 03/12/2024 13:57:43 0.7 0.0-2.0 (%) Final Absolute Segs 03/12/2024 13:57:43 4.38 1.80-7.70 (K/uL) Final Lymphs, absolute 03/12/2024 13:57:43 1.10 1.00-4.80 (K/ul) Final Monos, Abs 03/12/2024 13:57:43 0.55 0.00-1.10 (K/uL) Final Eos, Abs 03/12/2024 13:57:43 0.00 0.00-0.70 (K/uL) Final Basos, Abs 03/12/2024 13:57:43 0.04 0.00-0.20 (K/uL) Final Immature Granulocytes, Number 03/12/2024 13:57:43 0.04 0.00-0.20 (K/uL) Final Performing Location [facility] [address] [facility] [id number]
--- OUTSIDE RECORDS SUMMARY | 2024-04-23 23:47 | External Medical Summary | Summary of Care ---
Author Name Unknown Organization [facility] Address [address] [address] Phone [phone] Care Team Providers Care Second Language Tutor Name Role Phone Eliazar Reis MD Primary Care Provider [phone] Reason for Visit * Reason Onset Date Comments Test Results Lab 03/14/2024 Encounter Details Date Type Department Care Team (Late st Contact Info) Description 03/14/2024 Telephone Cardiology, [facility] [address] [place] [address] Lavonne Petty CRNP [address] [place] [address] Test Results Lab Allergies Active Allergy Reactions Criticality Noted Date Comments Oxaprozin Psych complications High 06/18/2016 depression Other Reaction(s): MAKES FEEL DEPRESSED Simvastatin Other (Please comment) High 06/18/2016 Critical liver lab results Other Reaction(s): ELEVATED LIVER ENZYMES documented as of this encounter (statuses as of 03/14/2024) Medications Magnesium 500 MG Oral Tablet Take 1 Tablet by mouth in the morning. Active Ferrous Sulfate 325 (65 Fe) MG Oral Tablet (Feosol)Indication s:Iron deficiency anemia due to chronic blood loss Take one by mouth every other day 60 Tab 3 09/04/19 21 Active Docusate Sodium 100 MG Oral Capsule Take by mouth 2 times a day. 200 mg in the AM and 100 mg at night Active Aspirin 81 MG Oral Tablet ChewableIndication s:Transient memory loss Take 1 Tablet (81 mg) by mouth in the morning. with food.. 90 Tablet 3 03/19/20 22 Active prednisoLONE Acetate 1 % Ophthalmic Suspension (Pred Forte) Instill 1 Drop into both eyes in the morning and 1 Drop at noon and 1 Drop before bedtime. 45 mL 3 07/16/19 23 Active Additional Information Patient taking differently:1 Drop Both eyesDaily(AM), Reported on 12/01/2023 Systane 0.4-0.3 % Ophthalmic Solution (Artificial Tears) Instill into both eyes 4 times a day as needed for Dry eyes. Active Furosemide 20 MG Oral Tablet (Lasix)Indications :Bilateral lower extremity edema TAKE 1 TABLET BY MOUTH DAILY 90 Tablet 1 02/04/20 23 Active Additional Information Patient taking differently:20 mg Oral Daily(AM),Indications: taking as needed, Reported on 03/12/2024 Polyethylene Glycol 3350 17 GM/SCOOP Oral Powder (MiraLax) Take 17 g by mouth as needed for Constipation. Dissolve one heaping tablespoon in 8 ounces of water or juice. 850 g 3 03/11/20 23 Active Pravastatin Sodium 80 MG Oral TabletIndications: Dyslipidemia, goal LDL below 130 TAKE 1 TABLET BY MOUTH IN THE EVENING 90 Tablet 3 06/23/19 24 Active Polymyxin B-Trimethoprim 58293-2.1 UNIT/ML-% Ophthalmic Solution (Polytrim) INSTILL 1 DROP FOUR TIMES A DAY RIGHT EYE - BEGIN 3 DAYS BEFORE SURGERY 04/19/19 24 Active Gemtesa 75 MG Oral Tablet (Vibegron) Take 1 Tablet by mouth in the morning. 30 Tablet 11 08/25/19 24 025 Active Ondansetron 4 MG Oral Tablet Disintegrating (Zofran)Indication s:Nausea Place 1 Tablet on tongue every 8 hours as needed for Nausea. dissolve on tongue. 20 Tablet 1 09/09/19 24 Active Calcium 500 MG Oral Tablet Take 1 Tablet by mouth in the morning. Active Metoprolol Succinate ER 25 MG Oral Tablet Extended Release 24 Hour (toPROL XL)Indications:Par oxysmal atrial fibrillation (HCC) TAKE 1/2 TABLET BY MOUTH DAILY 45 Tablet 3 10/17/19 24 Active Solifenacin Succinate 5 MG Oral Tablet (VESIcare) Take 1 Tablet by mouth in the morning. 90 Tablet 3 11/30/19 24 Active Amiodarone HCl 200 MG Oral Tablet (Cordarone)Indicat ions:Paroxysmal atrial fibrillation (HCC) Take 1 Tablet by mouth in the morning. 100 Tablet 3 01/12/20 24 Active Potassium Chloride Jeannine ER 10 MEQ Oral Tablet Extended Release (Klor-Con M10)Indications:Hy pokalemia TAKE 1 TABLET BY MOUTH IN THE MORNING AND 1 TABLET AT NOON AND 1 TABLET AT BEDTIME 270 Tablet 2 01/11/20 24 Active Spironolactone 25 MG Oral Tablet (Aldactone) TAKE ONE-HALF TABLET BY MOUTH IN THE MORNING 45 Tablet 03/07/20 24 Active documented as of this encounter (statuses as of 03/14/2024) Active Problems Problem Noted Date Diagnosed Date S/P left atrial appendage ligation 03/11/2023 Age-related osteoporosis wit hout current pathological fracture 12/07/2022 Moderate tricuspid regurgitation 10/17/2022 Pulmonary hypertension 10/17/2022 Generalized osteoarthritis 07/27/2021 Diastolic CHF, chronic 04/07/2021 S/P repair of paraesophageal hernia 12/23/2020 Urge incontinence of urine 07/23/2020 MGUS (monoclonal gammopathy of unknown significa nce) 07/15/2020 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 Increased risk for Hereditary Hemochromatosis. Paroxysmal atrial fibrillation 09/10/2016 S/P AVR (aortic valve replacement) 09/09/2016 Dyslipidemia 06/18/2016 Gastroesophageal reflux disease without esophagi tis 06/18/2016 documented as of this encounter (statuses as of 03/14/2024) Resolved Problems Problem Noted Date Diagnosed Date Resolved Date Medical home patient encounter 10/14/2022 10/17/2022 Overweight (BMI 25.0-29.9) 02/15/2022 0 12/07/2022 Altered mental status 06/17/20212021 Dizziness 06/17/2021 06/30/2021 Obesity, Class I, BMI 30.0-3 4.9 (see actual BMI) 04/06/2021 02/15/2022 Hiatal hernia 07/23/2020 06/30/2021 Advanced directives, counseling/discussion 05/02/2020 07/23/2020 Encounter for examination fo r normal comparison and control in clinical research program 01/31/2020 04/23/2020 Overview (07/28/2020): Diagnosis changed due to Research Module. Go to Snapshot for study details. Primary osteoarthritis of both hands 01/21/2017 07/27/2021 Serologic abnormality 08/13/20162018 Aortic valve stenosis 07/01/20162020 HTN, goal below 140/90 06/18/201608/04 Fuchs' corneal dystrophy 06/18/201612/2022 History of vertigo 06/18/2016 History of nephrolithiasis 06/18/2016 0 07/23/2020 Nonrheumatic aortic valve stenosis 06/18/2016 07/01/2016 Allergic rhinitis 06/18/2016 07/23/2020 Primary osteoarthritis of left knee 06/18/2016 07/27/2021 documented as of this encounter (statuses as of 03/14/2024) Immunizations Name Administration Dates Next Due COVID-19 mRNA, LNP-s, No Pre serve, 2-Dose Series (Moderna) 06/06/2020,05/09/2020 COVID-19, MRNA-LNP, PF, 50 M CG/0.5 mL, 12 YRS AND ABOVE, IM (MODERNA-Spikevax) 12/30/2023,03/26/2023 COVID-19, mRNA, LNP-s, PF, B ooster, 100mcg/0.5mg (Moderna) 05/13/2021 Covid-19, Mrna, Lnp-s, Pf, B ivalent, 30 Mcg, IM, 12 yrs and above (Pfizer) 11/07/2021 Pneumococcal Conjugate Vacc, 13 Valent (Prevnar) 01/22/2015 Pneumococcal Polysaccharide PPV23 (Pneumovax) 03/25/2016,01/12/2006 Season Influenza, Quad, PF, Adjuvanted, 65+ Yrs, IM (FLUAD) 01/12/2020 Seasonal Influenza, High Dos e, Trivalent, PF, IM (Fluzone HD) 12/30/2023 Seasonal Influenza, PF, 6 M & above, IM , (FluLaval or Fluzone) 01/23/2018 Seasonal Influenza, Quadriva lent Hd (Fluzone Hd) 01/06/2023,12/30/2021,03/03/2021 Seasonal Influenza, Quadriva lent, No Preserve, IM 12/21/2016,02/03/2016,01/22/2015 Seasonal Influenza, Trivalen t, Adjuvanted, 65+ YRS, PF, (Fluad) 01/05/2019 TDAP (age 10 and older)(Boostrix) 02/05/2019 Varicella Zoster Vaccine (Adult) 07/16/2014 Zoster Vaccine Recombinant (Shingrix) 12/28/2019 ,09/14/2019 documented as of this encounter Social History Tobacco Use Types Packs/Day Years Used Date Smoking Tobacco: Never Smokeless Tobacco: Never Alcohol Use Standard Drinks/Week Comments Not Currently 0 (1 standard drink = 0.6 oz pur e alcohol) rarely PHQ-2 Answer Date Recorded PHQ Adult Total Score 0 03/11/2021 Hunger Vital Sign Answer Date Recorded Within the past 12 months, y ou worried that your food would run out before you got the money to buy more. Never true 07/24/19 21 Within the past 12 months, t he food you bought just didn't last and you didn't have money to get more. Never true 07/23/2020 Utilities Answer Date Recorded Do you have trouble paying y our heating, water, or electric bill? (Adult - for ages 18 years and over) Not on file 09/27/2023 Is your family able to pay t he heat, water, or electric bill? (Household - for ages 0-17 years) Not on file 09/27/2023 Does your family have access to good internet? (Household - for ages 0-17 years) Not on file 09/27/2023 Social Connections Answer Date Recorded How often do you feel lonely or isolated from those around you? 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 Answer Date of Assessment Author No 12/10/2020 8:27 PM EDT Casey Schuler RN * Are you blind or do you have serious difficulty seeing, even when wearing glasses? Answer Date of Assessment Author No 12/10/2020 8:27 PM EDT Casey Schuler RN * Do you have serious difficulty walking or climbing stairs? (5 years old or older) Answer Date of Assessment Author Yes 12/10/2020 8:27 PM Casey Beltrán RN * Do you have difficulty dressing or bathing? (5 years old or older) Answer Date of Assessment Author Yes 12/10/2020 8:27 PM EDCasey Goel RN * Because of a physical, mental, or emotional condition, do you have difficulty doing errands alone such as visiting a doctors office or shopping? (15 years old or older) Answer Date of Assessment Author Yes 12/10/2020 8:27 PM Casey Beltrán RN documented as of this encounter Mental Status * Because of a physical, mental, or emotional condition, do you have serious difficulty concentrating, remembering, or making decisions? (5 years old or older) Answer Entry Date Author No 12/10/2020 8:27 PM Casey Beltrán RN documented in this encounter Miscellaneous Notes * Telephone Encounter - Shannen Corrales RPh - 03/14/2024 3:40 PM EST Repeat BMP shows normal sodium level. MyG message sent. Shannen Page PharmD Clinical Pharmacist [facility] 03/14/2024, 3:42 PM * Telephone Encounter - Shannen Corrales RPh - 03/14/2024 8:02 AM EST Received magnesium lab result. BMP was not drawn. BMP ordered and added to labs completed. Recommend repeat sodium level due to previous level being slightly low. Thanks, Shannen Corrales, PharmD Clinical Pharmacist [facility] ([facility]) 03/14/2024, 8:03 AM documented in this encounter Plan of Treatment Upcoming Encounters Date Type Department Care Team (Late st Contact Info) Description 07/20/2024 10:40 AM EDT Office Visit Rheumatology [place] [address] [address] [place] [address] Juan Pablo Rebolledo MD [address] [place] [address] [place] [address] 09/21/2024 1:20 PM EDT Office Visit Family Practice [facility] [address] [place] [address] Eliazar Reis MD [address] [place] [address] 12/24/2024 3:30 PM EDT Office Visit Cardiology, [facility] [address] [address] Pollo Meyer MD [address] [place] [address] Health Maintenance Due Date Last Done Comments Adult Wellness Visit 03/11/2022 03/11/2021 Depression Screening 03/11/2022 03/11/2021 Fasting Serum Ferritin Hereditary Hemochromatosis (HFE) Annual,All Ages 06/17/2022 06/17/2021 COVID-19 Vaccine (7 - 2023-2 5 season) 2024 12/30/2023, 12/30/2023, 03/26/2023, Additional history exists DXA Scan 11/29/2024 11/29/2022, 11/10, 11/24/2020, Additional history exists Transferrin Saturation Hereditary Hemochromatosis (HFE) Annual,All Ages 03/12/2025 03/12/2024, 06/17/2021 DTap/Tdap Vaccines (2 - Td o r Tdap) 02/05/2029 02/05/2019 Pneumococcal Vaccine: 65+ Years Completed 03/25/2016, 01/22/2015, 01/12/2006 Zoster Vaccines Completed 12/28/2019, 08/2019, 07/16/2014 VITAMIN D LEVEL ONCE IN A LIFETIME-USE SMARTSET# [id number] Completed 07/08/2023, 12/07/2022, 08/05/2022, Additional history exists Influenza Vaccine (FLU shot) Completed , 12/30/2023, 01/06/2023, Additional history exists HPV (Gardasil) Vaccine Aged Out No lo nger eligible based on patient's age to complete this topic Hepatitis B Vaccine Aged Out No longe r eligible based on patient's age to complete this topic MENINGOCOCCAL (MENACTRA/MENVEO) Aged Out No longer eligible based on patient's age to complete this topic documented as of this encounter Medical Devices Implanted Type Area Reed Polisher Device Identifier Shelf Expiration Date Model / Serial / Lot Sut Steel 6 [id number] - [id number] Implanted:Qty : 4 on 09/09/2016 by John Olvera MD at OR [facility] [place] N/A: Chest JNJ : [employer] 05/11/2021 [id number] / / [id number] Atriclip 35mm [id number] - [id number] Implanted:Qty : 1 on 09/09/2016 by John Olvera MD at OR [facility] [place] N/A: Heart ATRICURE 08/09/2018 [id number] / / [id number] Valve Heart Aortic Epic 23mm - [id number] - [id number] Implanted:Qty : 1 on 09/09/2016 by John Olvera MD at OR [facility] [place] N/A: Aorta [facility] : CARDIOVASCULAR 02/03/2020 [id number] / [id number] / Allomax Mesh 2 X 4 [id number] - [id number] - [id number] Implanted:Qty : 1 on 12/10/2020 by Jenny Brooks MD at OR [facility] [place] N/A: Abdomen CR BARD : DAVOL 03/10/2025 [id number] / [id number] / [id number] Description:[facility] documented as of this encounter Results * (ABNORMAL) BASIC METABOLIC PANEL (03/12/2024 1:57 PM EST) BUN 22(H) 6 - 20 mg/dL 03/14/2024 8:41 AM EST [facility] CREATININE 0.7 0.5 - 1.0 mg/dL 03/14/2024 8:41 AM EST [facility] EGFR 81 >=60 mL/min 03/14/2024 8:41 AM EST [facility] Comment:eGFR is calculated b ased on the CKD-EPI 2020 equation. SODIUM 136 135 - 146 mmol/L 03/14/2024 8:41 AM EST LABORATORY [facility] [place] POTASSIUM 4.3 3.5 - 5.1 mmol/L 03/14/2024 8:41 AM EST LABORATORY C CHLORIDE 101 98 - 107 mmol/L 03/14/2024 8:41 AM EST [facility] CO2 22 22 - 32 mmol/L 03/14/2024 8:41 AM EST LABORATORY C ANION GAP 13 7 - 15 mmol/L 03/14/2024 8:41 AM EST LABORATORY C GLUCOSE 89 70 - 120 mg/dL 03/14/2024 8:41 AM EST LABORATORY C CALCIUM 10.2 8.4 - 10.2 mg/dL 03/14/2024 8:41 AM EST LABORATORY [facility] [place] Blood Venipuncture / Unknown 03/12/2024 1:57 PM EST 03/12/2024 1:57 PM EST us Shannen Corrales [facility] LAB BLOOD ORDERABLES Final Res ult LABORATORY [facility] [place] [address] [place] [address] documented in this encounter Visit Diagnoses Diagnosis Diastolic CHF, chronic (HCC)- Primary Chronic diastolic heart failure Encounter for long-term (current) use of medications Encounter for long-term (current) use of other medications documented in this encounter Advance Directives * Full Code (Latest Code Status on File) Date Activated Date Inactivated Comments 12/10/2020 6:28 PM 12/11/2020 7:55 PM Question Answer Comments Discussion of Advance Directives occurred with: Not Discussed Does the patient have a Living Will? No Does the patient have Health Care Power of Attor ceci? No * Full Code Date Activated Date Inactivated Comments 12/10/2020 6:25 PM 12/10/2020 6:28 PM Question Answer Comments Discussion of Advance Directives occurred with: Not Discussed Does the patient have a Living Will? No Does the patient have Health Care Power of Attor ceci? No * Full Code Date Activated Date Inactivated Comments 09/09/2016 11:44 AM 09/13/2016 3:34 PM This order re flects the patients wishes and were consensually agreed upon. Care Teams Second Language Tutor Relationship Specialty Start Date End Date Eliazar Reis MD [address] [facility] [place] [address] PCP - General Family Medicine 09/02/20 documented as of this encounter
--- OUTSIDE RECORDS SUMMARY | 2024-04-23 23:47 | External Medical Summary ---
Author Name Unknown Address Unknown Organization [id number]:[facility] [place] [address] [place] [address] Laboratory Report Ordering Provider Test Date Status HANK CHAU 03/12/2024 13:57:43 Final Observation Date Value Abnormality Reference (Units ) Status BUN 03/12/2024 13:57:43 22 Above high normal 6-20 (mg/dL) Final Creatinine 03/12/2024 13:57:43 0.7 0.5-1.0 (mg/dL) Final Glomerular filtration rate/1.73 sq M.predicted [Volume Rate/Area] in Serum, Plasma or Blood by Creatinine-based formula (CKD-EPI) 03/12/2024 13:57:43 81 >=60 (mL/min) Final eGFR is calculated based on the CKD-EPI 2020 equation. Sodium 03/12/2024 13:57:43 136 135-146 (m mol/L) Final Potassium 03/12/2024 13:57:43 4.3 3.5-5.1 (m mol/L) Final Cl 03/12/2024 13:57:43 101 98-107 (mm ol/L) Final CO2 03/12/2024 13:57:43 22 22-32 (mmo l/L) Final Anion gap 03/12/2024 13:57:43 13 7-15 (mmol /L) Final Glucose 03/12/2024 13:57:43 89 70-120 (mg /dL) Final Calcium 03/12/2024 13:57:43 10.2 8.4-10.2 ( mg/dL) Final Performing Location [facility] [place] [address] [place] [address]
--- OUTSIDE RECORDS SUMMARY | 2024-04-23 23:47 | External Medical Summary ---
Author Name Unknown Address Unknown Organization [id number][place] [place] [address] [place] [address] Laboratory Report Ordering Provider Test Date Status KATY GHOSH 03/12/2024 13:57:43 Final Observation Date Value Abnormality Reference (Units ) Status WBC, Total 03/12/2024 13:57:43 6.11 4.00-10.8 0 (K/uL) Final RBC 03/12/2024 13:57:43 3.88 3.85-5.15 (M/uL) Final Hemoglobin 03/12/2024 13:57:43 13.4 12.0-15.3 (g/dL) Final Anemia reflex testing trigge rs on a HGB < 12.0 for Females and HGB < 13.0 for Males in accordance with the WHO Anemia Guidelines
Anemia reflex testing triggers on a HGB < 12.0 for Females and HGB < 13.0 for Males in accordance with the WHO Anemia Guidelines HCT 03/12/2024 13:57:43 42.4 36.0-45.2 (%) Final MCV 03/12/2024 13:57:43 109.3 81.5-97.5 (fL) Final MCH 03/12/2024 13:57:43 34.5 27.0-34.0 (pg) Final MCHC 03/12/2024 13:57:43 31.6 32.0-36.0 (g/dL) Final RDW 03/12/2024 13:57:43 14.4 11.5-15.5 (%) Final Platelets 03/12/2024 13:57:43 105 Below low normal 140 -400 (K/uL) Final MPV 03/12/2024 13:57:43 10.3 6.6-11.1 ( fL) Final Nucleated erythrocytes/100 leukocytes [Ratio] in Blood by Automated count 03/12/2024 13:57:43 0 <=0 (/100 WBCs) Fi [facility] Performing Location [facility] - [address] [facility] [address]
--- OUTSIDE RECORDS SUMMARY | 2024-04-23 23:47 | External Medical Summary | Summary of Care ---
Author Name Unknown Organization [facility] Address [address] [address] Phone [phone] Care Team Providers Care Coronary Clinical Specialist Name Role Phone Eliazar Reis MD Primary Care Provider [phone] Reason for Visit * Reason Comments Outpatient Testing Encounter Details Date Type Department Care Team (Late st Contact Info) Description 03/12/2024 2:00 PM EST [facility], [facility] [address] [facility] [id number] [facility] [address] [place] [address] Diastolic CHF, chronic (HCC); Encounter for long-term (current) use of medications; MGUS (monoclonal gammopathy of unknown significance) Allergies Active Allergy Reactions Criticality Noted Date Comments Oxaprozin Psych complications High 06/18/2016 depression Other Reaction(s): MAKES FEEL DEPRESSED Simvastatin Other (Please comment) High 06/18/2016 Critical liver lab results Other Reaction(s): ELEVATED LIVER ENZYMES documented as of this encounter (statuses as of 03/12/2024) Medications Magnesium 500 MG Oral Tablet Take [...] Tablet 3 06/23/19 24 Active Polymyxin B-Trimethoprim 89484-3.1 UNIT/ML-% Ophthalmic Solution (Polytrim) INSTILL 1 DROP [...] as of this encounter (statuses as of 03/12/2024) Active Problems Problem Noted Date Diagnosed Date [...] Overview (02/18/2020): 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 Increased risk for Hereditary Hemochromatosis. 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 (5 years old or older) Answer Date of Assessment Author Yes 12/10/2020 8:27 PM EDT Casey Schuler RN * Because of a physical, mental, or emotional condition, do you have difficulty doing errands alone such as visiting a doctors office or shopping? (15 years old or older) Answer Date of Assessment Author Yes 12/10/2020 8:27 PM EDT Casey Schuler RN documented as of this encounter Mental Status * Because of a physical, mental, or emotional condition, do you have serious difficulty concentrating, remembering, or making decisions? (5 years old or older) Answer Entry Date Author No 12/10/2020 8:27 PM EDT Casey Schuler RN documented in this encounter Plan of Treatment Upcoming Encounters Date Type Department Care Team (Late st Contact Info) Description 07/20/2024 10:40 AM EDT Office Visit Rheumatology [facility] [address] [place] [address] Juan Pablo Rebolledo MD [address] [place] [address] 09/21/2024 1:20 PM EDT Office Visit Family Practice [facility] [address] [place] [address] Eliazar Reis MD [address] [place] [address] 12/24/2024 3:30 PM EDT Office Visit Cardiology, [facility] [address] [place] [address] Pollo Meyer MD [address] [place] [address] Pending Results Name Type Priority Associated Diagnoses Date /Time MAGNESIUM Lab Routine Diastolic CHF, chronic (HCC) Encounter for long-term (current) use of medications 03/12/2024 1:57 PM EST CBC WITH WBC DIFFERENTIAL AND ANEMIA REFLEX WORKUP Lab Routine MGUS (monoclonal gammopathy of unknown significance) 03/12/2024 1:57 PM EST IRON SCREEN, INCLUDING TIBC Lab Routine MGUS (monoclonal gammopathy of unknown significance) 03/12/2024 1:57 PM EST ANEMIA CBC Lab Routine MGUS (monoclonal gammopathy of unknown significance) 03/12/2024 1:57 PM EST DIFFERENTIAL, AUTOMATED Lab Routine MGUS (monoclonal gammopathy of unknown significance) 03/12/2024 1:57 PM EST ANEMIA REFLEX CHEMISTRY HOLD Lab Routine MGUS (monoclonal gammopathy of unknown significance) 03/12/2024 1:57 PM EST Health Maintenance Due Date Last Done Comments Adult Wellness Visit 03/11/2022 03/11/2021 Depression Screening 03/11/2022 03/11/2021 Fasting Serum Ferritin Hereditary Hemochromatosis (HFE) Annual,All Ages 06/17/2022 06/17/2021 Transferrin Saturation Hereditary Hemochromatosis (HFE) Annual,All Ages 06/17/2022 06/17/2021 COVID-19 Vaccine (2023-05 5 season) 2024 12/30/2023, 12/30/2023, 03/26/2023, Additional history exists DXA Scan 11/29/2024 11/29/2022, 11/10, 11/24/2020, Additional history exists DTap/Tdap Vaccines (2 - Td o r Tdap) 02/05/2029 02/05/2019 Pneumococcal Vaccine: 65+ Years Completed 03/25/2016, 01/22/2015, 01/12/2006 Zoster Vaccines Completed 12/28/2019, 08/2019, 07/16/2014 VITAMIN D LEVEL ONCE IN A LIFETIME-USE SMARTSET# [id number] Completed 07/08/2023, 12/07/2022, 08/05/2022, Additional history exists [...] this encounter Medical Devices Implanted Type Area Test Tech Device Identifier Shelf Expiration Date Model / Serial / Lot Sut Steel 6 [id number] - [id number] Implanted:Qty : 4 on 09/09/2016 by John Olvera MD at OR [facility] N/A: Chest JNJ : [employer] 05/11/2021 [id number] / / [id number] Atriclip 35mm [id number] - [id number] Implanted:Qty : 1 on 09/09/2016 by John Olvera MD at OR [facility] N/A: Heart ATRICURE 08/09/2018 [id number] / / [id number] Valve Heart Aortic Epic 23mm - [id number] - [id number] Implanted:Qty : 1 on 09/09/2016 by John Olvera MD at OR [facility] N/A: Aorta [employer] LESA : CARDIOVASCULAR 02/03/2020 [id number] / [id number] / Allomax Mesh 2 X 4 [id number] - [id number] - [id number] Implanted:Qty : 1 on 12/10/2020 by Jenny Brooks MD at OR [facility] N/A: Abdomen CR BARD : DAVOL 03/10/2025 [id number] / [id number] / [id number] Description:PEH documented as of this encounter Visit Diagnoses Diagnosis Diastolic CHF, chronic (HCC) Chronic diastolic heart failure Encounter for long-term (current) use of medications Encounter for long-term (current) use of other medications MGUS (monoclonal gammopathy of unknown significance) Monoclonal paraproteinemia documented in this encounter Advance Directives * [...] and were consensually agreed upon. Care Teams Coronary Clinical Specialist Relationship Specialty Start Date End Date Eliazar Reis MD [address] [facility] [place] [address] PCP - General Family Medicine 09/02/20 documented as of this encounter
--- OUTSIDE RECORDS SUMMARY | 2024-04-23 23:47 | External Medical Summary | Summary of Care ---
Author Name Unknown Organization [facility] Address [address] [address] Phone [phone] Care Team Providers Care Sour Bleaching Pleater Name Role Phone Eliazar Reis MD Primary Care Provider [phone] Reason for Visit * Reason Comments Outpatient Testing Encounter Details Date Type Department Care Team (Late st Contact Info) Description 03/21/2024 10:10 AM EST Laboratory [facility] [place] [address] [place] [id number] [place], [facility] [address] [place] [address] Confusional state Allergies Active Allergy Reactions Criticality Noted Date Comments Oxaprozin Psych complications High 06/18/2016 depression Other Reaction(s): MAKES FEEL DEPRESSED Simvastatin Other (Please comment) High 06/18/2016 Critical liver lab results Other Reaction(s): ELEVATED LIVER ENZYMES documented as of this encounter (statuses as of 03/21/2024) Medications Magnesium 500 MG Oral Tablet Take [...] Tablet 3 06/23/19 24 Active Polymyxin B-Trimethoprim 36073-2.1 UNIT/ML-% Ophthalmic Solution (Polytrim) INSTILL 1 DROP [...] as of this encounter (statuses as of 03/21/2024) Active Problems Problem Noted Date Diagnosed Date [...] Overview (02/18/2020): 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 Increased risk for Hereditary Hemochromatosis. 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 [address] [facility] [place] [address] Eliazar Reis MD [address] [place] [address] 12/24/2024 3:30 PM EDT Office Visit Cardiology, [facility] [address] [place] [address] Pollo Meyer MD [address] [place] [address] Pending Results Name Type Priority Associated Diagnoses Date /Time URINALYSIS WITH MICROSCOPIC EXAM Lab Routine Confusional state 03/21/2024 10:08 AM EST Health Maintenance Due Date Last Done Comments Adult Wellness Visit 03/11/2022 03/11/2021 Depression Screening 03/11/2022 03/11/2021 Fasting Serum Ferritin Hereditary Hemochromatosis (HFE) Annual,All Ages 06/17/2022 06/17/2021 COVID-19 Vaccine (7 2023-2 5 season) 2024 12/30/2023, 12/30/2023, 03/26/2023, Additional history exists DXA Scan 11/29/2024 11/29/2022, 11/10, 11/24/2020, Additional history exists Transferrin Saturation Hereditary Hemochromatosis (HFE) Annual,All Ages 03/12/2025 03/12/2024, 06/17/2021 DTap/Tdap Vaccines (2 - Td o r Tdap) 02/05/2029 02/05/2019 Pneumococcal Vaccine: 65+ Years Completed 03/25/2016, 01/22/2015, 01/12/2006 Zoster Vaccines Completed 12/28/2019, 08/2019, 07/16/2014 VITAMIN D LEVEL ONCE IN A LIFETIME-USE SMARTSET# [id number] Completed 07/08/2023, 12/07/2022, 08/05/2022, Additional history exists [...] this encounter Medical Devices Implanted Type Area Service Consultant Device Identifier Shelf Expiration Date Model / Serial / Lot Sut Steel 6 M654g - [id number] Implanted:Qty : 4 on 09/09/2016 by John Olvera MD at OR [facility] N/A: Chest JNJ : [employer] 05/11/2021 [id number] / / [id number] Atriclip 35mm [id number] - [id number] Implanted:Qty : 1 on 09/09/2016 by John Olvera MD at OR [facility] N/A: Heart ATRICURE 08/09/2018 [id number] / / [id number] Valve Heart Aortic Epic 23mm - [id number] - [id number] Implanted:Qty : 1 on 09/09/2016 by John Olvera MD at OR [facility] N/A: Aorta [employer] LESA : CARDIOVASCULAR 02/03/2020 [id number] / [id number] / Allomax Mesh 2 X 4 [id number] - [id number] - [id number] Implanted:Qty : 1 on 12/10/2020 by Jenny Brooks MD at OR [facility] N/A: Abdomen CR BARD : DAVOL 03/10/2025 [id number] / [id number] / [id number] Description:PEH documented as of this encounter Visit Diagnoses Diagnosis Confusional state Unspecified psychosis documented in this encounter Advance Directives * [...] and were consensually agreed upon. Care Teams Sour Bleaching Pleater Relationship Specialty Start Date End Date Eliazar Reis MD [address] [address] PCP - General Family Medicine 09/02/20 documented as of this encounter
--- OUTSIDE RECORDS SUMMARY | 2024-04-23 23:47 | External Medical Summary | Summary of Care ---
Author Name Unknown Organization [facility] Address [address] [facility] [place] [address] Phone [phone] Care Team Providers Care Warehouse Assistant Name Role Phone Eliazar Reis MD Primary Care Provider [phone] Reason for Visit * Reason Comments Follow Up Pt here for 6 month follow up with daughter, c/o hearing loss in R ear Encounter Details Date Type Department Care Team (Latest Contact Info) Description 03/12/2024 1:20 PM EST Office Visit Family Practice [facility] [address] [facility] [place] [address] Eliazar Reis MD [address] [place] [address] Paroxysmal atrial fibrillation (HCC)*; Diastolic CHF, chronic (HCC); Pulmonary hypertension (HCC); Gastroesophageal reflux disease without esophagitis; Dyslipidemia; Urge incontinence of urine; Generalized osteoarthritis; MGUS (monoclonal gammopathy of unknown significance); S/P left atrial appendage ligation; S/P AVR (aortic valve replacement); S/P repair of paraesophageal hernia Allergies Active Allergy Reactions Criticality Noted Date [...] Sulfate 325 (65 Fe) MG Oral Tablet (Feosol)Indicatio ns:Iron deficiency anemia due to chronic blood loss Take one by mouth every other day 60 Tab 3 021 Active Docusate Sodium 100 MG Oral Capsule Take by mouth 2 times a day. 200 mg in the AM and 100 mg at night Active Aspirin 81 MG Oral Tablet ChewableIndicatio ns:Transient memory loss Take 1 Tablet (81 mg) by mouth in the morning. with food.. 90 Tablet 3 022 Active prednisoLONE Acetate 1 % Ophthalmic Suspension (Pred Forte) Instill 1 Drop into both eyes in the morning and 1 Drop at noon and 1 Drop before bedtime. 45 mL 3 023 Active Additional Information Patient taking differently:1 Drop Both eyesDaily(AM), Reported on 12/01/2023 Systane 0.4-0.3 % Ophthalmic Solution (Artificial Tears) Instill into both eyes 4 times a day as needed for Dry eyes. Active Furosemide 20 MG Oral Tablet (Lasix)Indication s:Bilateral lower extremity edema TAKE 1 TABLET BY MOUTH DAILY 90 Tablet 1 023 Active Additional Information Patient taking differently:20 mg Oral Daily(AM),Indications: taking as needed, Reported on 03/12/2024 Polyethylene Glycol 3350 17 GM/SCOOP Oral Powder (MiraLax) Take 17 g by mouth as needed for Constipation. Dissolve one heaping tablespoon in 8 ounces of water or juice. 850 g 3 023 Active Pravastatin Sodium 80 MG Oral TabletIndications :Dyslipidemia, goal LDL below 130 TAKE 1 TABLET BY MOUTH IN THE EVENING 90 Tablet 3 024 Active Polymyxin B-Trimethoprim 00923-0.1 UNIT/ML-% Ophthalmic Solution (Polytrim) INSTILL 1 DROP FOUR TIMES A DAY RIGHT EYE - BEGIN 3 DAYS BEFORE SURGERY 024 Active Gemtesa 75 MG Oral Tablet (Vibegron) Take 1 Tablet by mouth in the morning. 30 Tablet 11 024 2024 Active Ondansetron 4 MG Oral Tablet Disintegrating (Zofran)Indicatio ns:Nausea Place 1 Tablet on tongue every 8 hours as needed for Nausea. dissolve on tongue. 20 Tablet 1 024 Active Calcium 500 MG Oral Tablet Take 1 Tablet by mouth in the morning. Active Metoprolol Succinate ER 25 MG Oral Tablet Extended Release 24 Hour (toPROL XL)Indications:Pa roxysmal atrial fibrillation (HCC) TAKE 1/2 TABLET BY MOUTH DAILY 45 Tablet 3 024 Active Solifenacin Succinate 5 MG Oral Tablet (VESIcare) Take 1 Tablet by mouth in the morning. 90 Tablet 3 024 Active Amiodarone HCl 200 MG Oral Tablet (Cordarone)Indica tions:Paroxysmal atrial fibrillation (HCC) Take 1 Tablet by mouth in the morning. 100 Tablet 3 024 Active Potassium Chloride Jeannine ER 10 MEQ Oral Tablet Extended Release (Klor-Con M10)Indications:H ypokalemia TAKE 1 TABLET BY MOUTH IN THE MORNING AND 1 TABLET AT NOON AND 1 TABLET AT BEDTIME 270 Tablet 2 024 Active Spironolactone 25 MG Oral Tablet (Aldactone) TAKE ONE-HALF TABLET BY MOUTH IN THE MORNING 45 Tablet 024 Active fexofenadine (VILMA) 180 MG TabletIndications :Allergic rhinitis, unspecified allergic rhinitis trigger, unspecified rhinitis seasonality Take 1 Tablet by mouth at bedtime. In the evening 30 Tab 11 017 2023 Discontinued Carboxymethylcell ulose Sodium 1 % Ophthalmic Solution Instill 1 Drop into both eyes as needed. 2023 Discontinued Vitamin C 500 MG Oral Tablet Chewable Take 1 Tab by mouth daily. 30 Tab 5 021 2023 Discontinued Calcium Carb-Cholecalcife rol 500-10 MG-MCG Oral Tablet Take 1 Tablet by mouth in the morning and 1 Tablet at noon and 1 Tablet before bedtime. 2023 Discontinued Amiodarone HCl 100 MG Oral Tablet (Cordarone) Take 1 Tablet by mouth in the morning. 90 Tablet 3 023 2023 Discontinued Sodium Fluoride 5000 PPM 1.1 % Dental Paste BRUSH WITH PEA-SIZED AMOUNT AT NIGHT DIRECTED 024 2023 Discontinued Tylenol 325 MG Oral Capsule (Acetaminophen) Take 650 mg by mouth in the morning and 650 mg before bedtime. 2023 Discontinued Amiodarone HCl 200 MG Oral Tablet (Cordarone) Take 1 Tablet by mouth in the morning. 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 Increased risk for Hereditary Hemochromatosis. 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 Answer Date of Assessment Author No 12/10/2020 8:27 PM Casey Beltrán RN * Are you blind or do you have serious difficulty seeing, even when wearing glasses? Answer Date of Assessment Author No 12/10/2020 8:27 PM Casey Beltrán RN * Do you have serious difficulty walking or climbing stairs? (5 years old or older) Answer Date of Assessment Author Yes 12/10/2020 8:27 PM Casey Beltrán RN * Do you have difficulty dressing or bathing? (5 years old or older) Answer Date of Assessment Author Yes 12/10/2020 8:27 PM Casey Beltrán RN * Because of a physical, mental, [...] Casey Beltrán RN documented in this encounter Progress Notes * Eliazar Reis MD - 03/12/2024 2:33 PM EST SUBJECTIVE: Shannon Salazar is a 88 year old female. Chief Complaint Patient presents with Follow Up Pt here for 6 month follow up with daughter, c/o hearing loss in R ear HPI: Shannon is a very pleasant 88 year old female here with her daughter for a routine follow up. She now receives all of her medical care in [place], but continues to live in [place]. She has been doing well overall. She had her amiodarone increased by cardiology and has noticed some symptomatic improvement in her a-fib. She needs to eat smaller meals due to her history of repair of paraesophageal hernia. She will have updated labs done today. She does have a little bit of short term memory loss but no signs of pradeep dementia. She has been following weekly with wound care for a non-healing wound on her right lower leg. She has some venous insufficiency and is going to be seeing Dr. Caldera of [facility] cardiology/vascular next week. Patient Active Problem List Diagnosis Dyslipidemia Gastroesophageal reflux disease without esophagitis S/P AVR (aortic valve replacement) Paroxysmal atrial fibrillation (HCC) Biallelic mutation of HFE gene MGUS (monoclonal gammopathy of unknown significance) Urge incontinence of urine S/P repair of paraesophageal hernia Diastolic CHF, chronic (HCC) Generalized osteoarthritis Moderate tricuspid regurgitation Pulmonary hypertension (HCC) Age-related osteoporosis without current pathological fracture S/P left atrial appendage ligation Current Outpatient Medications Medication Sig Dispense Refill Magnesium 500 MG Oral Tablet Take 1 Tablet by mouth in the morning. Ferrous Sulfate 325 (65 Fe) MG Oral Tablet (Feosol) Take one by mouth every other day 60 Tab 3 Docusate Sodium 100 MG Oral Capsule Take by mouth 2 times a day. 200 mg in the AM and 100 mg at night Aspirin 81 MG Oral Tablet Chewable Take 1 Tablet (81 mg) by mouth in the morning. with food.. 90 Tablet 3 Systane 0.4-0.3 % Ophthalmic Solution (Artificial Tears) Instill into both eyes 4 times a day as needed for Dry eyes. Furosemide 20 MG Oral Tablet (Lasix) TAKE 1 TABLET BY MOUTH DAILY (Patient taking differently: Take1 Tablet by mouth in the morning.) 90 Tablet 1 Polyethylene Glycol 3350 17 GM/SCOOP Oral Powder (MiraLax) Take 17 g by mouth as needed for Constipation. Dissolve one heaping tablespoon in 8 ounces of water or juice. 850 g 3 Pravastatin Sodium 80 MG Oral Tablet TAKE 1 TABLET BY MOUTH IN THE EVENING 90 Tablet 3 Gemtesa 75 MG Oral Tablet (Vibegron) Take 1 Tablet by mouth in the morning. 30 Tablet 11 Ondansetron 4 MG Oral Tablet Disintegrating (Zofran) Place 1 Tablet on tongue every 8 hours as needed for Nausea. dissolve on tongue. 20 Tablet 1 Calcium 500 MG Oral Tablet Take 1 Tablet by mouth in the morning. Metoprolol Succinate ER 25 MG Oral Tablet Extended Release 24 Hour (toPROL XL) TAKE 1/2 TABLET BY MOUTH DAILY 45 Tablet 3 Solifenacin Succinate 5 MG Oral Tablet (VESIcare) Take 1 Tablet by mouth in the morning. 90 Tablet 3 Amiodarone HCl 200 MG Oral Tablet (Cordarone) Take 1 Tablet by mouth in the morning. 100 Tablet 3 Potassium Chloride Jeannine ER 10 MEQ Oral Tablet Extended Release (Klor-Con M10) TAKE 1 TABLET BY MOUTH IN THE MORNING AND 1 TABLET AT NOON AND 1 TABLET AT BEDTIME 270 Tablet 2 Spironolactone 25 MG Oral Tablet (Aldactone) TAKE ONE-HALF TABLET BY MOUTH IN THE MORNING 45 Tablet0 prednisoLONE Acetate 1 % Ophthalmic Suspension (Pred Forte) Instill 1 Drop into both eyes in the morning and 1 Drop at noon and 1 Drop before bedtime. (Patient taking differently: Instill 1 Drop intoboth eyes in the morning.) 45 mL 3 Polymyxin B-Trimethoprim 79089-7.1 UNIT/ML-% Ophthalmic Solution (Polytrim) INSTILL 1 DROP FOUR TIMES A DAY RIGHT EYE - BEGIN 3 DAYS BEFORE SURGERY No current facility-administered medications for this visit. Allergy: Review of patient's allergies indicates: Allergen Reactions Oxaprozin Psych complications depression Other Reaction(s): MAKES FEEL DEPRESSED Simvastatin Other (Please comment) Critical liver lab results Other Reaction(s): ELEVATED LIVER ENZYMES OBJECTIVE: BP 118/60 | Pulse 68 | Temp 97.8 F (36.6 C) | Resp 18 | Ht 5' 1" (1.549 m) | Wt 133 lb (60.3 kg) | BMI 25.13 kg/m | BSA 1.61 m Gen: aao x 3, nad Lungs: ctab Heart: irregularly irregular; very soft systolic ejection murmur Ext: no c/c/e Skin: no rashes ASSESSMENT AND PLAN: (I48.0) Paroxysmal atrial fibrillation (HCC) (primary encounter diagnosis) Plan: continue medical mgmt; no a/c as she has had left atrial appendage ligated (I50.32) Diastolic CHF, chronic (HCC) Plan: continue rx (I27.20) Pulmonary hypertension (HCC) Plan: continue rx (K21.9) Gastroesophageal reflux disease without esophagitis Plan: stable (E78.5) Dyslipidemia Plan: continue rx (N39.41) Urge incontinence of urine Plan: continue rx (M15.9) Generalized osteoarthritis Plan: quiescent (D47.2) MGUS (monoclonal gammopathy of unknown significance) Plan: CBC WITH WBC DIFFERENTIAL AND ANEMIA REFLEX WORKUP, IRON SCREEN, INCLUDING TIBC (Z98.890) S/P left atrial appendage ligation Plan: noted (Z95.2) S/P AVR (aortic valve replacement) Plan: noted (Z98.890, Z87.19) S/P repair of paraesophageal hernia Plan: noted Follow up in 6 month(s). No other complaints were offered at this time. Eliazar Reis MD documented in this encounter Nursing Notes * Meena Beal LPN - 03/12/2024 1:11 PM EST The patient has been properly identified by confirmation of name and date of . Chief Complaint Patient presents with Follow Up Pt here for 6 month follow up with daughter, c/o hearing loss in R ear documented in this encounter Plan of Treatment Upcoming Encounters Date Type Department Care Team (Late st Contact Info) Description 07/20/2024 10:40 AM EDT Office Visit Rheumatology [place] [id number] [facility] [place], [place] [address] Juan Pablo Rebolledo MD [facility] [place] [address] 09/21/2024 1:20 PM EDT Office Visit Family Practice [facility] [address] [address] Eliazar Reis MD [address] [place] [address] 12/24/2024 3:30 PM EDT Office Visit Cardiology, [facility] [address] [place] [address] Pollo Meyer MD [address] [place] [address] Pending Results Name Type Priority Associated Diagnoses Date /Time CBC WITH WBC DIFFERENTIAL AND ANEMIA REFLEX WORKUP Lab Routine MGUS (monoclonal gammopathy of unknown significance) 03/12/2024 1:57 PM EST IRON SCREEN, INCLUDING TIBC Lab Routine MGUS (monoclonal gammopathy of unknown significance) 03/12/2024 1:57 PM EST Scheduled Orders Name Type Priority Associated Diagnoses Orde r Schedule CBC WITH WBC DIFFERENTIAL AND ANEMIA REFLEX WORKUP Lab Routine MGUS (monoclonal gammopathy of unknown significance) Expected: 03/12/2024 (Approximate), Expires: 03/12/2025 IRON SCREEN, INCLUDING TIBC Lab Routine MGUS (monoclonal gammopathy of unknown significance) Expected: 03/12/2024 (Approximate), Expires: 03/12/2025 Health Maintenance Due Date Last Done Comments Adult Wellness Visit 03/11/2022 03/11/2021 Depression Screening 03/11/2022 03/11/2021 Fasting Serum Ferritin Hereditary Hemochromatosis (HFE) Annual,All Ages 06/17/2022 06/17/2021 Transferrin Saturation Hereditary Hemochromatosis (HFE) Annual,All Ages 06/17/2022 06/17/2021 COVID-19 Vaccine (2023-2 5 season) 2024 12/30/2023, 12/30/2023, 03/26/2023, Additional history exists DXA Scan 11/29/2024 11/29/2022, 11/10, 11/24/2020, Additional history exists DTap/Tdap Vaccines (2 - Td o r Tdap) 02/05/2029 02/05/2019 Pneumococcal Vaccine: 65+ Years Completed 03/25/2016, 01/22/2015, 01/12/2006 Zoster Vaccines Completed 12/28/2019, 06/0 08/2019, 07/16/2014 VITAMIN D LEVEL ONCE IN A LIFETIME-USE SMARTSET# [id number] Completed 07/08/2023, 12/07/2022, 08/05/2022, Additional history exists [...] this encounter Medical Devices Implanted Type Area Head Shipper Device Identifier Shelf Expiration Date Model / Serial / Lot Sut Steel 6 [id number] - [id number] Implanted:Qty : 4 on 09/09/2016 by John Olvera MD at [place] [facility] [place] N/A: Chest JNJ : [employer] 05/11/2021 [id number] / / [id number] Atriclip 35mm [id number] - [id number] Implanted:Qty : 1 on 09/09/2016 by John Olvera MD at OR [facility] [place] N/A: Heart ATRICURE 08/09/2018 [id number] / / [id number] Valve Heart Aortic Epic 23mm - [id number] - [id number] Implanted:Qty : 1 on 09/09/2016 by John Olvera MD at [place] [facility] [place] N/A: Aorta [employer] LESA : CARDIOVASCULAR 02/03/2020 [id number] 00 / [id number] / Allomax Mesh 2 X 4 [id number] - [id number] - [id number] Implanted:Qty : 1 on 12/10/2020 by Jenny Brooks MD at OR [facility] [place] N/A: Abdomen CR BARD : DAVOL 03/10/2025 [id number] / [id number] / [id number] Description:PEH documented as of this encounter Visit Diagnoses Diagnosis Paroxysmal atrial fibrillation (HCC)- Primary Atrial fibrillation Diastolic CHF, chronic (HCC) Chronic diastolic heart failure Pulmonary hypertension (HCC) Other chronic pulmonary heart diseases Gastroesophageal reflux disease without esophagitis Esophageal reflux Dyslipidemia Other and unspecified hyperlipidemia Urge incontinence of urine Urge incontinence Generalized osteoarthritis Generalized osteoarthrosis, unspecified site MGUS (monoclonal gammopathy of unknown significance) Monoclonal paraproteinemia S/P left atrial appendage ligation S/P AVR (aortic valve replacement) Heart valve replaced by other means S/P repair of paraesophageal hernia Other postprocedural status documented in this encounter Advance Directives * [...] and were consensually agreed upon. Care Teams Warehouse Assistant Relationship Specialty Start Date End Date Eliazar Reis MD [address] [facility] [place] [address] PCP - General Family Medicine 09/02/20 documented as of this encounter
--- OUTSIDE RECORDS SUMMARY | 2024-04-23 23:47 | External Medical Summary ---
Author Name Unknown Address Unknown Organization K09:[facility] [address] [place] [address] Laboratory Report Ordering Provider Test Date Status KATY GHOSH 03/21/2024 10:08:03 Final Observation Date Value Abnormality Reference (Units ) Status Color of Urine by Auto 03/21/2024 10:08:03 Yellow Light Yellow, Yellow, Dark Yellow Final Clarity, Urine 03/21/2024 10:08:03 Cloudy Abnormal Clear Final Glucose [Mass/volume] in Urine by Automated test strip 03/21/2024 10:08:03 Negative Negative (mg/dL) Final Bilirubin.total [Presence] in Urine by Automated test strip 03/21/2024 10:08:03 Negative Negative Final Ketones [Mass/volume] in Urine by Automated test strip 03/21/2024 10:08:03 Negative Negative (mg/dL) Final Specific gravity, Urine 03/21/2024 10:08:03 1.020 1.003-1.030 Final Hemoglobin [Presence] in Urine by Automated test strip 03/21/2024 10:08:03 Small Abnormal Negative Final pH, Urine 03/21/2024 10:08:03 8.5 Above high normal 5.0-7.5 (Units) Final Protein [Mass/volume] in Urine by Automated test strip 03/21/2024 10:08:03 30 Abnormal Negative (mg/dL) Final Urobilinogen [Mass/volume] in Urine by Automated test strip 03/21/2024 10:08:03 0.2 0.2, 1.0 (mg/dL) Final Nitrite [Presence] in Urine by Automated test strip 03/21/2024 10:08:03 Negative Negative Final Leukocyte esterase [Presence] in Urine by Automated test strip 03/21/2024 10:08:03 Trace Abnormal Negative Final RBC, Urine 03/21/2024 10:08:03 3-5 Abnormal 0-2 (/HPF) Final WBC, Urine 03/21/2024 10:08:03 3-5 Abnormal 0-2 (/HPF) Final Bacteria [#/area] in Urine sediment by Microscopy high power field 03/21/2024 10:08:03 26-50 Abnormal 0-25 (/HPF) Final Crystals.amorphous [#/area] in Urine sediment by Microscopy high power field 03/21/2024 10:08:03 Many Abnormal None (/HPF) Final Performing Location [facility] [address] [place] [address]
--- OUTSIDE RECORDS SUMMARY | 2024-04-23 23:47 | External Medical Summary | Summary of Care ---
Author Name Unknown Organization [facility] Address [address] [place] [address] Phone [phone] Care Team Providers Care Master Of Ceremonies Name Role Phone Eliazar Reis MD Primary Care Provider [phone] Reason for Visit * Reason Comments Outpatient Testing Encounter Details Date Type Department Care Team (Late st Contact Info) Description 03/21/2024 10:10 AM EST Laboratory [facility] [place] [address] [place] [id number] [place], [address] [facility] [address] [place] [address] Confusional state Allergies Active Allergy Reactions [...] Tablet 3 06/23/19 24 Active Polymyxin B-Trimethoprim 83194-0.1 UNIT/ML-% Ophthalmic Solution (Polytrim) INSTILL 1 DROP [...] Overview (02/18/2020): 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 Increased risk for Hereditary Hemochromatosis. 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 [address] [facility] [place] [address] Eliazar Reis MD [address] [place] [address] 12/24/2024 3:30 PM EDT Office Visit Cardiology, [facility] [address] [place] [address] Pollo Meyer MD [address] [place] [place] [address] Pending Results Name Type Priority Associated Diagnoses [...] D LEVEL ONCE IN A LIFETIME-USE SMARTSET# [id number] Completed 07/08/2023, 12/07/2022, 08/05/2022, Additional history exists [...] this encounter Medical Devices Implanted Type Area Marine Painter Device Identifier Shelf Expiration Date Model / Serial / Lot Sut Steel 6 M654g - [id number] Implanted:Qty : 4 on 09/09/2016 by [place] Ol[place] [facility] [place]: Chest JNJ : [employer] 05/11/2021 [id number] / / [id number] Atriclip 35mm [id number] - [id number] Implanted:Qty : 1 on 09/09/2016 by John Olver[place] [facility] [place]: Heart ATRICURE 08/09/2018 [id number] / / [id number] Valve Heart Aortic Epic 23mm - [id number] - [id number] Implanted:Qty : 1 on 09/09/2016 by John Olver[place] [facility] [place]A: Aorta [facility] LESA : CARDIOVASCULAR 02/03/2020 [id number] / [id number] / Allomax Mesh 2 X 4 [id number] - [id number] - [id number] Implanted:Qty : 1 on 12/10/2020 by Jenny Brooks MD [place] [facility] [place]: Abdomen CR BARD : DAVOL 03/10/2025 [id number] / [id number] / [id number] Description:PEH documented as of this encounter Visit [...] and were consensually agreed upon. Care Teams Master Of Ceremonies Relationship Specialty Start Date End Date Eliazar Reis MD [address] [place] [address] PCP - General Family Medicine 09/02/20 documented as of this encounter
--- OUTSIDE RECORDS SUMMARY | 2024-04-23 23:47 | External Medical Summary | Summary of Care ---
Author Name Unknown Organization [facility] Address [address] [address] Phone [phone] Care Team Providers Care Blade Groover Name Role Phone Eliazar Reis MD Primary Care Provider [phone] Reason for Visit * Reason Comments eRx-Medication Refill Encounter Details Date Type Department Care Team (Late st Contact Info) Description 03/04/2024 Refill Cardiology, [facility] [address] [place] [address] Pollo Meyer MD [address] [place] [address] Diastolic CHF, chronic (HCC)*; Encounter for long-term (current) use of medications Allergies Active Allergy Reactions Criticality Noted Date Comments Oxaprozin Psych complications High 06/18/2016 depression Other Reaction(s): MAKES FEEL DEPRESSED Simvastatin Other (Please comment) High 06/18/2016 Critical liver lab results Other Reaction(s): ELEVATED LIVER ENZYMES documented as of this encounter (statuses as of 03/09/2024) Medications fexofenadine (VILMA) 180 MG TabletIndications :Allergic rhinitis, unspecified allergic rhinitis trigger, unspecified rhinitis seasonality Take 1 Tablet by mouth at bedtime. In the evening 30 Tab 11 017 Active Carboxymethylcell ulose Sodium 1 % Ophthalmic Solution Instill 1 Drop into both eyes as needed. Active Magnesium 500 MG Oral Tablet Take 1 Tablet by mouth in the morning. Active Ferrous Sulfate 325 (65 Fe) MG Oral Tablet (Feosol)Indicatio ns:Iron deficiency anemia due to chronic blood loss Take one by mouth every other day 60 Tab 3 021 Active Vitamin C 500 MG Oral Tablet Chewable Take 1 Tab by mouth daily. 30 Tab 5 021 Active Docusate Sodium 100 MG Oral [...] differently:1 Drop Both eyesDaily(AM), Reported on 12/01/2023 Calcium Carb-Cholecalcife rol 500-10 MG-MCG Oral Tablet Take 1 Tablet by mouth in the morning and 1 Tablet at noon and 1 Tablet before bedtime. Active Systane 0.4-0.3 % Ophthalmic Solution (Artificial Tears) Instill into both eyes 4 times a day as needed for Dry eyes. Active Amiodarone HCl 100 MG Oral Tablet (Cordarone) Take 1 Tablet by mouth in the morning. 90 Tablet 3 023 Active Furosemide 20 MG Oral Tablet (Lasix)Indication s:Bilateral lower extremity edema TAKE 1 TABLET BY MOUTH DAILY 90 Tablet 1 023 Active Additional Information Patient taking differently:20 mg Oral Daily(AM),Indications: taking as needed, Reported on 03/10/2023 Polyethylene Glycol 3350 17 GM/SCOOP Oral Powder (MiraLax) Take 17 g by mouth as needed for Constipation. Dissolve one heaping tablespoon in 8 ounces of water or juice. 850 g 3 023 Active Pravastatin Sodium 80 MG Oral TabletIndications :Dyslipidemia, goal LDL below 130 TAKE 1 TABLET BY MOUTH IN THE EVENING 90 Tablet 3 024 Active Polymyxin B-Trimethoprim 57786-6.1 UNIT/ML-% Ophthalmic Solution (Polytrim) INSTILL 1 DROP FOUR TIMES A DAY RIGHT EYE - BEGIN 3 DAYS BEFORE SURGERY Active Sodium Fluoride 5000 PPM 1.1 % Dental Paste BRUSH WITH PEA-SIZED AMOUNT AT NIGHT DIRECTED Active Gemtesa 75 MG Oral Tablet (Vibegron) Take 1 Tablet by mouth in the morning. 30 Tablet 11 024 2024 Active Additional Information Patient not taking.Reported on 12/01/2023 Ondansetron 4 MG Oral Tablet Disintegrating (Zofran)Indicatio ns:Nausea Place 1 Tablet on tongue every 8 hours as needed for Nausea. dissolve on tongue. 20 Tablet 1 Active Calcium 500 MG Oral Tablet Take 1 Tablet by mouth in the morning. Active Metoprolol Succinate ER 25 MG Oral Tablet Extended Release 24 Hour (toPROL XL)Indications:Pa roxysmal atrial fibrillation (HCC) TAKE 1/2 TABLET BY MOUTH DAILY 45 Tablet 3 024 Active Solifenacin Succinate 5 MG Oral Tablet (VESIcare) Take 1 Tablet by mouth in the morning. 90 Tablet 3 024 Active Tylenol 325 MG Oral Capsule (Acetaminophen) Take 650 mg by mouth in the morning and 650 mg before bedtime. Active Amiodarone HCl 200 MG Oral Tablet (Cordarone)Indica tions:Paroxysmal atrial fibrillation (HCC) Take 1 Tablet by mouth in the morning. 100 Tablet 3 024 Active Potassium Chloride Jeannine ER 10 MEQ Oral Tablet Extended Release (Klor-Con M10)Indications:H ypokalemia TAKE 1 TABLET BY MOUTH IN THE MORNING AND 1 TABLET AT NOON AND 1 TABLET AT BEDTIME 270 Tablet 2 024 Active Amiodarone HCl 200 MG Oral Tablet (Cordarone) Take 1 Tablet by mouth in the morning. 15 Tablet 024 Active Spironolactone 25 MG Oral Tablet (Aldactone) TAKE ONE-HALF TABLET BY MOUTH IN THE MORNING 45 Tablet 024 Active Spironolactone 25 MG Oral Tablet (Aldactone) Take 0.5 Tablets by mouth in the morning. 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 Increased risk for Hereditary Hemochromatosis. Paroxysmal atrial fibrillation 09/10/2016 S/P AVR (aortic valve replacement) 09/09/2016 Dyslipidemia 06/18/2016 Gastroesophageal reflux disease without esophagi tis 06/18/2016 documented as of this encounter (statuses as of 03/09/2024) Resolved Problems Problem Noted Date Diagnosed Date [...] as of this encounter (statuses as of 03/09/2024) Immunizations Name Administration Dates Next Due COVID-19 mRNA, LNP-s, No Pre serve, 2-Dose Series (Moderna) 06/06/2020,05/09/2020 COVID-19, mRNA, LNP-s, PF, B ooster, 100mcg/0.5mg (Moderna) 05/13/2021 Covid-19, Mrna, Lnp-s, Pf, B ivalent, 30 Mcg, IM, 12 yrs and above (Novavax) 11/07/2021 Pneumococcal Conjugate Vacc, 13 Valent (Prevnar) 01/22/2015 Pneumococcal Polysaccharide PPV23 (Pneumovax) 03/25/2016,01/12/2006 Season Influenza, Quad, PF, Adjuvanted, 65+ Yrs, IM (FLUAD) 01/12/2020 Seasonal Influenza, PF, 6 M & above, [...] 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 (5 years old or older) Answer Entry Date Author No 12/10/2020 8:27 PM EDT Casey Schuler, RN documented in this encounter Miscellaneous Notes * Telephone Encounter - Alexander Jimenes - 03/09/2024 4:20 PM EST Received message from [facility] regarding patient needing labs. Patient was notified. Successfully contacted patient and provided [facility] message. * Telephone Encounter - Payal Ray CPhT - 03/09/2024 4:01 PM EST Received message from [facility] regarding patient needing labs. Call Placed, Unable to reach pt, as therewas no answer and no VM available to leave message. Sent the patient a [employer] message to advise. Thank you, Payal Ray CPhT Towel Cabinet Repairer III [facility] ([facility]) [address] [place] [address], [facility] [address] [address] * Telephone Encounter - Kandi Mckinney RPh - 03/07/2024 9:54 AM ESTSigned Prescriptions: Disp Refills Spironolactone 25 MG Oral Tablet (Aldacton*45 Tab*0 Sig: TAKE ONE-HALF TABLET BY MOUTH IN THE MORNING Authorizing Provider: GHANSHYAM BALDERRAMA Ordering User: KANDI MCKINNEY * Telephone Encounter - Kandi Mckinney RP - 03/07/2024 9:51 AM EST Provided 90 days supply with 0 refill(s). Per refill protocol patient should have repeat BMP due tolow sodium and magnesium level on file. Reviewed AMP report, Care Gaps/Health Maintenance, medications list, and for any routine labs typically ordered for this patient. Lab orders placed. Please contact patient to advise of labs ordered for blood draw. Fasting is not required. Advise toobtain labs before requesting the next refill. Thanks, Kandi Mckinney, PharmD Clinical Pharmacist [facility] ([facility]) 03/07/2024, 9:51 AM * Telephone Encounter - Interface, [facility] S[facility] Inbound - 03/07/2024 5:00 AM EST Pending Prescriptions: Disp Refills Spironolactone 25 MG Oral Tablet 45 Tab*3 Sig: TAKE ONE-HALF TABLET BY MOUTH IN THE MORNING documented in this encounter Plan of Treatment Upcoming Encounters Date Type Department Care Team (Late st Contact Info) Description 03/12/2024 1:20 PM EST Office Visit Family Practice [facility] [address] [address] Eliazar Reis MD [address] [address] 07/20/2024 10:40 AM EDT Office Visit Rheumatology [address] [place] [address] Juan Pablo Rebolledo MD [address] [place] [address] [place] [address] 12/24/2024 3:30 PM EDT Office Visit Cardiology, [facility] [address] [place] [address] Pollo Meyer MD [address] [place] [address] Scheduled Orders Name Type Priority Associated Diagnoses Orde r Schedule MAGNESIUM Lab Routine Diastolic CHF, chronic (HCC) Encounter for long-term (current) use of medications Expected: 03/14/2024 (Approximate), Expires: 03/07/2025 Health Maintenance Due Date Last Done Comments [...] D LEVEL ONCE IN A LIFETIME-USE SMARTSET# [id number] Completed 07/08/2023, 12/07/2022, 08/05/2022, Additional history exists [...] this encounter Medical Devices Implanted Type Area Physical Instructor Device Identifier Shelf Expiration Date Model / Serial / Lot Sut Steel 6 M654g - [id number] Implanted:Qty : 4 on 09/09/2016 by John Olvera MD at [place] [facility] N/A: Chest JNJ : [employer] 05/11/2021 [id number] / / [id number] Atriclip 35mm [id number] - [id number] Implanted:Qty : 1 on 09/09/2016 by John Olvera MD at OR [facility] N/A: Heart ATRICURE 08/09/2018 [id number] / / [id number] Valve Heart Aortic Epic 23mm - [id number] - [id number] Implanted:Qty : 1 on 09/09/2016 by John Olvera MD at OR [facility] N/A: Aorta [employer] LESA : CARDIOVASCULAR 02/03/2020 [id number] 00 / [id number] / Allomax Mesh 2 X 4 [id number] - [id number] - [id number] Implanted:Qty : 1 on 12/10/2020 by Jenny Brooks MD at OR [facility] N/A: Abdomen CR BARD : DAVOL 03/10/2025 [id number] / [id number] / [id number] Description:PEH documented as of this encounter Visit [...] and were consensually agreed upon. Care Teams Blade Groover Relationship Specialty Start Date End Date Eliazar Reis MD [address] [place] [address] PCP - General Family Medicine 09/02/20 documented as of this encounter
--- OUTSIDE RECORDS SUMMARY | 2024-04-23 23:47 | External Medical Summary | Summary of Care ---
Author Name Unknown Organization [facility] Address [address] [address] Phone [phone] Care Team Providers Care Dressing Machine Operator Name Role Phone Eliazar Reis MD Primary Care Provider [phone] Encounter Details Date Type Department Care Team (Late st Contact Info) Description 03/21/2024 Telephone Family Practice [facility] [address] [place] [address] Eliazar Reis MD [address] [place] [address] Allergies Active Allergy Reactions Criticality Noted Date Comments Oxaprozin Psych complications High 06/18/2016 depression Other Reaction(s): MAKES FEEL DEPRESSED Simvastatin Other (Please comment) High 06/18/2016 Critical liver lab results Other Reaction(s): ELEVATED LIVER ENZYMES documented as of this encounter (statuses as of 03/22/2024) Medications Magnesium 500 MG Oral Tablet Take [...] Tablet 3 06/23/19 24 Active Polymyxin B-Trimethoprim 79030-7.1 UNIT/ML-% Ophthalmic Solution (Polytrim) INSTILL 1 DROP [...] THE MORNING 45 Tablet 03/07/20 24 Active Sulfamethoxazole-T rimethoprim 800-160 MG Oral Tablet (Bactrim DS) Take 1 Tablet by mouth in the morning and 1 Tablet before bedtime. Do all this for 3 days. Until gone. 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 Increased risk for Hereditary Hemochromatosis. 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 Not on file [...] Date Author No 12/10/2020 8:27 PM Casey Beltárn RN documented in this encounter Miscellaneous Notes * Telephone Encounter - Ivy Graham MED ASSIST - 03/21/2024 12:51 PM EST Patients daughter made aware * Telephone Encounter - Eliazar Reis MD - 03/21/2024 11:53 AM EST Bactrim for UTI sent to [facility] documented in this encounter Plan of Treatment Upcoming Encounters Date Type Department Care Team (Late st Contact Info) Description 07/20/2024 10:40 AM EDT Office Visit Rheumatology [address] [place] [address] Juan Pablo Rebolledo MD [address] [place] [address] [place] [address] 09/21/2024 1:20 PM EDT Office Visit Family Practice [facility] [address] [address] Eliazar Reis MD [address] [place] [address] 12/24/2024 3:30 PM EDT Office Visit Cardiology, [facility] [address] [place] [address] Pollo Meyer MD [address] [place] [address] Health Maintenance Due Date Last Done Comments [...] D LEVEL ONCE IN A LIFETIME-USE SMARTSET# [id number] Completed 07/08/2023, 12/07/2022, 08/05/2022, Additional history exists [...] this encounter Medical Devices Implanted Type Area Biodiesel Processing Technician Device Identifier Shelf Expiration Date Model / Serial / Lot Sut Steel 6 M654g - [id number] Implanted:Qty : 4 on 09/09/2016 by John Olvera MD at OR [facility] [place] N/A: Chest JNJ : [employer] 05/11/2021 M654G / / [id number] Atriclip 35mm [id number] - [id number] Implanted:Qty : 1 on 09/09/2016 by John Olvera MD at OR [facility] N/A: Heart ATRICURE 08/09/2018 [id number] / / [id number] Valve Heart Aortic Epic 23mm - [id number] - [id number] Implanted:Qty : 1 on 09/09/2016 by John Olvera MD at OR [facility] N/A: Aorta ST LESA : CARDIOVASCULAR 02/03/2020 [id number] 00 / [id number] / Allomax Mesh 2 X 4 [id number] - [id number] - [id number] Implanted:Qty : 1 on 12/10/2020 by Jenny Brooks MD at OR [facility] N/A: Abdomen CR BARD : DAVOL 03/10/2025 [id number] / [id number] / [id number] Description:PEH documented as of this encounter Advance Directives * Full Code [...] and were consensually agreed upon. Care Teams Dressing Machine Operator Relationship Specialty Start Date End Date Eliazar Reis MD [address] [place] [address] PCP - General Family Medicine 09/02/20 documented as of this encounter
--- OUTSIDE RECORDS SUMMARY | 2024-04-23 23:47 | External Medical Summary ---
Author Name Unknown Address Unknown Organization K01:[facility] - [address] [place] [address] Laboratory Report Ordering Provider Test Date Status HANK CHAU 03/12/2024 13:57:43 Final Observation Date Value Abnormality Reference (Units ) Status Magnesium 03/12/2024 13:57:43 1.9 1.5-2.6 (m g/dL) Final Performing Location [facility] - [address] [place] [address]
--- OUTSIDE RECORDS SUMMARY | 2024-04-23 23:47 | External Medical Summary ---
Author Name Unknown Address Unknown Organization K01:[facility] - [address] [place] [address] Laboratory Report Ordering Provider Test Date Status KATY GHOSH 03/12/2024 13:57:43 Final Observation Date Value Abnormality Reference (Units ) Status Iron 03/12/2024 13:57:43 87 33-151 (ug/dL) Final Iron-binding capacity 03/12/2024 13:57:43 237 Below low normal 250-425 (ug/dL) Final Transferrin Sat % 03/12/2024 13:57:43 37 15-55 (%) Final Performing Location [facility] - [address] [place] [address]
--- OUTSIDE RECORDS SUMMARY | 2024-04-23 23:48 | External Medical Summary | Summary of Care ---
Author Name Unknown Organization [facility] Address [address] [address] Phone [phone] Care Team Providers Care Sonoscope Operator Name Role Phone Eliazar Reis MD Primary Care Provider [phone] Reason for Visit * Reason Comments eRx-Medication Refill Encounter Details Date Type Department Care Team (Late st Contact Info) Description 03/04/2024 Refill Cardiology, [facility] [address] [place] [address] Pollo Meyer MD [address] [place] [address] Diastolic CHF, chronic (HCC)*; Encounter for long-term [...] 90 Tablet 3 024 Active Polymyxin B-Trimethoprim 86413-8.1 UNIT/ML-% Ophthalmic Solution (Polytrim) INSTILL 1 DROP [...] Overview (02/18/2020): 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 Increased risk for Hereditary Hemochromatosis. 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 Call Placed, Unable to reach pt, as therewas no answer and no VM available to leave message. Sent the patient a [employer] message to advise. Thank you, Payal Ray CPhT Car Pre Cooler III [facility] ([facility]) [address] [place] [address], [address] [address] * Telephone Encounter - Kandi Mckinney RP - 03/07/2024 9:54 AM ESTSigned Prescriptions: Disp [...] 1:20 PM EST Office Visit Family Practice [facility] [address] [address] Eliazar Reis MD [address] [address] 07/20/2024 10:40 AM EDT Office Visit Rheumatology [address] [place] [address] Juan Pablo Rebolledo MD [facility] [employer] [facility] [place] [address] 12/24/2024 3:30 PM EDT Office Visit Cardiology, [facility] [address] [address] Pollo Meyer MD [address] [place] [address] Scheduled Orders Name Type Priority Associated Diagnoses [...] D LEVEL ONCE IN A LIFETIME-USE SMARTSET# [id number] Completed 07/08/2023, 12/07/2022, 08/05/2022, Additional history exists [...] this encounter Medical Devices Implanted Type Area Otr Flatbed Company Truck Driver Device Identifier Shelf Expiration Date Model / Serial / Lot Shirin Davis 6 M654g - [id number] Implanted:Qty : 4 on 09/09/2016 by John Olvera MD at OR [facility] [place] N/A: Chest JNJ : [employer] 05/11/2021 M654G / / [id number] Atriclip 35mm [id number] - [id number] Implanted:Qty : 1 on 09/09/2016 by John Olvera MD at OR [facility] [place] N/A: Heart ATRICURE 08/09/2018 [id number] / / [id number] Valve Heart Aortic Epic 23mm - [id number] - [id number] Implanted:Qty : 1 on 09/09/2016 by John Olvera MD at OR [facility] [place] N/A: Aorta ST LESA : CARDIOVASCULAR 02/03/2020 [id number]- 00 / [id number] / Allomax Mesh 2 X 4 [id number] - [id number] - [id number] Implanted:Qty : 1 on 12/10/2020 by Jenny Brooks MD at OR [facility] [place] N/A: Abdomen CR BARD : DAVOL 03/10/2025 [id number] / [id number] / [id number] Description:PEH documented as of this encounter Visit [...] and were consensually agreed upon. Care Teams Sonoscope Operator Relationship Specialty Start Date End Date Eliazar Reis MD [address] [place] [address] PCP - General Family Medicine 09/02/20 documented as of this encounter
[2024-04-24 06:30] LABS: Hematocrit (blood only) 37.5 % (37.0-47.0); Hemoglobin 12.7 g/dl (12.0-16.0); Mean Corpuscular Hemoglobin 33.8 pg (25.0-34.0); Mean Corpuscular Hgb Conc 33.9 g/dL (32.0-36.0); Mean Corpuscular Volume 99.7 fL (80.0-100.0); Mean Platelet Volume 10.3 fL (9.4-12.4); Platelet Count 93 K/uL (130-400); RDW Coefficient of Variation 13.4 % (11.5-14.5); RDW Standard Deviation 49.6 fL (36.4-46.3); Red Blood Count 3.76 M/uL (4.20-5.40); White Blood Count 7.44 K/ul (4.8-10.8)
[2024-04-24 07:02] LABS: Albumin Globulin Ratio 0.4 (0.9-2); Albumin Level 2.7 gm/dl (3.4-5.0); BUN Creatinine Ratio 24.1 (10-20); Bilirubin,Total 0.5 mg/dl (0.2-1.0); Calcium 12.1 mg/dl (8.6-10.3); Globulin 6.3 gm/dl (2.5-4.0); Magnesium 1.6 mg/dl (1.7-2.4); Potassium 3.5 mmol/L (3.5-5.1)
[2024-04-24] MEDS ORDERED: MAGNESIUM OXIDE 400 MG TAB PO SCH (09:00)
[2024-04-24] MEDS: METOPROLOL SUCC 25MG EXT REL TAB PO SCH (09:14)
[2024-04-24] MEDS: MAGNESIUM OXIDE 400 MG TAB PO SCH (09:14)
[2024-04-24] MEDS: PSYLLIUM or GUAR GUM FIBER 4GM PACKET PO SCH (09:14)
[2024-04-24] MEDS: FERROUS SULFATE 325 MG TAB PO SCH (09:14)
[2024-04-24] MEDS: OXYBUTYNIN CHLORIDE XL 5 MG TABCR PO SCH (09:16)
[2024-04-24] MEDS: VIBEGRON 75 MG TAB PO SCH (09:16)
[2024-04-24] MEDS: ASPIRIN 81 MG ECTAB PO SCH (09:16)
[2024-04-24] MEDS: AMIODARONE 200 MG TAB PO SCH (09:16)
[2024-04-24] MEDS: ADVANCED PROBIOTIC 625 MG CAPSULE PO SCH (09:16)
[2024-04-24] MEDS: POLYETHYLENE (MIRALAX) 17 GM PACK PO PRN (09:16)
--- NOTE | 2024-04-24 09:16 | Hospitalist Progress Note ---
Date of Service April 24, 2024 Assessment & Plan (1) Hypercalcemia: (2) Suspected UTI: (3) Chest wall contusion: (4) Dysphagia: (5) Ambulatory dysfunction: (6) Age-related cognitive decline: (7) MGUS (monoclonal gammopathy of unknown significance): (8) Hypomagnesemia: (9) Skin tear of left forearm without complication: (10) Paroxysmal atrial fibrillation: (11) Chronic diastolic CHF (congestive heart failure): Plan Patient had choking episode on a pill last week that daughter performed the Heimlich maneuver on her. Since then family has seen a really rapid decline in her mobility and actually even her oral intake. Phone conversation with daughter today states that she really feels the patient was even scared to eat and drink much after that event. She states normally she was able to go up and down stairs move around in the house and over the past week she really limited her activity and pretty much stayed on the first floor of the house. She did use her walker but her strength rapidly declined. Daughter states that she does have a history of recurrent UTIs. States that normally her short-term memory is somewhat poor but her rest of her cognitive abilities are relatively in contact. She reports PCP did some memory testing and felt that she only had some mild cognitive decline. However, daughter did report that on previous hospitalization she did have some acute delirium and sundowning. In the emergency room noted to be hypercalcemic and urinalysis consistent with possible urinary tract infection. Suspect patient had's chest wall contusion from Heimlich and significant fear of eating and drinking after that event over the past week has not done much activity, has not eaten or drank her normal and subsequently rapidly declined from a physical conditioning standpoint and has hypercalcemia due to dehydration, oral supplementation and also may have developed a UTI. Hypercalcemia improved with hydration, suspect it may be due to oral supplementation, continue to hold calcium supplements Nephrology consult pending Continue therapies Replace magnesium Decrease IV fluid rate Case management for possible placement, daughter reports that she has had an encompass stay in the past 52 min in bedside evaluation, care coordination, communication with staff and family Admission and Anticipated Discharge Date Admission Date: April 23, 2024 Subjective No acute issues overnight. Patient recognizes that her memory is not quite perfect Physical Exam Physical Exam: Constitutional: Alert, sitting up in chair, nontoxic HEENT: Mucous membranes moist. Lungs: Decreased breath sounds, few crackles at bases CV: S1-S2, irregular Abdomen: Soft, nontender, nondistended Extremities: No significant edema Neuro: No focal deficits, generalized weakness Psych: Cooperative, impaired memory Results & Data Results & Data Vital Signs (Past 12 Hours) Vital Signs Temp Pulse Pulse Resp BP BP Pulse Ox 04/24/24 08:43 04/24/24 08:07 36.4 C L 87 20 153/90 H 93 04/24/24 07:12 95 H 04/24/24 04:00 36.5 C 71 18 142/85 H 94 04/23/24 23:00 36.5 C 81 18 144/81 H 93 04/23/24 21:45 04/23/24 21:45 36.5 C 98 H 12 147/71 H 96 O2 Del Method 04/24/24 08:43 Room Air 04/24/24 08:07 Room Air 04/24/24 07:12 04/24/24 04:00 Room Air 04/23/24 23:00 Room Air 04/23/24 21:45 Room Air 04/23/24 21:45 Room Air Diagnostic Findings Reviewed imaging, laboratory and diagnostic studies. Pertinent findings as below. CBC stable Sodium 132 Potassium 3.5 Creatinine 0.79 Calcium 12.1, improved Ionized calcium 2.0 Magnesium 1.6 PTH 4.8 TSH 2.7 Urine culture pending
--- NOTE | 2024-04-24 11:12 | Nephrology Consultation ---
Date of Consultation April 24, 2024 Assessment & Plan (1) Hypercalcemia: improving severe hypercalcemia. presented w/ calcium 13.4, albumin 2.7 in the setting of reported MGUS, though sounds like this had been followed for past years by PCP > corrects to 14.4. creatinine remains wnl. 25OHD level 34, PTH appropriately suppressed. will reassess MGUS activity > could transform to multiple myeloma or other potentially; or could be dehydration w/ high Ca intake; no e/o vitamin D intoxication. calcium down to 12.1 today; responding so far to calcitonin and NS but with her HFpEF and MGUS hx this will not be a fix for long. -zolendronate 4 mg IV x 1 -continue NS at 80 mL hourly as tolerated -continue calcitonin > plan total duration 24-36 hr -ordered spot prot/creat ratio >ordered w/ labs in AM > spep, bence luu on spot testing, beta 2 microglobulin, serum MARILIA, kappa/lambda ratio (didn't see any of these recently done in [facility] system) -may need close-in f/u after d/c w/ hematology depending on results of above; note above many of them reference labs and may take time to post medicatoin changes /plans and labs ordered and lab frequency reviewed w/ Dr Earl via TText; we are in agreement. (2) Hypomagnesemia: improving with supplementation -check daily -continue K and mag supplementation po (3) Frequent falls: high calcium levels may have had a role in the generalized weakness leading to frequent falls > fix calcium; PT evaluations (4) MGUS (monoclonal gammopathy of unknown significance): per report ([facility] records not available) >> with low serum albumin, hypercalcemia, minimal dipstick proteinuria; no anemia currently > may be significantly dehydrated however History of Present Illness Reason for Consultation: hypercalcemia in setting of MGUS Requesting Physician: Dr Schneider Attending Physician: Antonino Earl DO History of Present Illness 88 y/o F whom I'm asked to see for hypercalcemia in the setting of MGUS was admitted yesterday with calcium of 13.4 after presenting for evaluation of worsening generalized weakness and frequent falls. PMH includes MGUS (follows w/ PCP for this; no current heme care), pAF s/p L atrial appendage ligation/ no AC, severe s/p 2016 AVF, HFpEF, HTN, plm HTN, HL, urge incontinence, OA, osteoporosis, paraesophageal hernia s/p surgical repair, GERD, benign paroxysmal vertigo, chronic mild-mod thrombocytopenia noted on chart review since at least 09/2022 [facility]. Admitted w/ hypercalcemia per granddaughter at bedside in 2019 in [place] (near her home) attributed to MGUS. Choking episode prior to admission requiring Heimlich at home. Has been following recently w/ [facility] wound clinic for skin tear RLE after bumping into grapple operator door. had used PRN lasix x up to a few doses recently per wound center instructions for LE edema. Calcium is down to 12.1 this AM after 1L NS. Pt is still w/ marked generalized weakness but feels a bit better. no sob, no palpitations, no n/v/d; stable chronic constipation; no abd pain. no edema. no worsening of her chronic osteoarthritic joint pain. feels to weak to stand safely she tells me. she has been sleeping in recliner on ground floor b/c too weak to get upstairs to her bedroom since about 04/22. minimal po since 04/22; denies increased thirst in this timeframe. takes Ca and D supplements as OP. Her granddaughter is at bedside today and helps w/ hx. Allergies Allergy/AdvReac Type Severity Reaction Status Date / Time simvastatin AdvReac Severe ELEVATED Verified 04/18/24 13:24 LIVER ENZYMES oxaprozin AdvReac Intermediate MAKES FEEL Verified 04/18/24 13:24 DEPRESSED Home Medications Medication Instructions Recorded Confirmed Type magnesium oxide 500 mg PO QAM 07/15/20 04/23/24 History pravastatin 80 mg tablet 80 mg PO HS 07/15/20 04/23/24 History prednisolone acetate 1 % eye 1 drp OPB TID 07/15/20 04/23/24 History drops,suspension solifenacin 5 mg tablet 5 mg PO QAM 07/15/20 04/23/24 History acetaminophen 500 mg tablet 1,000 mg PO BID Pain 06/13/21 04/23/24 History (Tylenol Extra Strength) ascorbic acid (vitamin C) 500 mg 500 mg PO QAM 06/13/21 04/23/24 History tablet (Vitamin C) ferrous sulfate 325 mg (65 mg 325 mg PO Q OTHER DAY 06/13/21 04/23/24 History iron) tablet (iron) fexofenadine 180 mg tablet 180 mg PO HS 07/06/21 04/23/24 History peg 400-propylene glycol (PF) 0.4 1 drp ophthalmic (eye) QID PRN Dry 07/06/21 04/23/24 History %-0.3 % eye drops in a dropperette Eye(S) (Systane (PF)) metoprolol succinate 25 mg 12.5 mg PO QAM 08/07/21 04/23/24 History tablet,extended release 24 hr aspirin 81 mg tablet,delayed 81 mg PO QAM 09/30/22 04/23/24 History release calcium 500 mg (as 1 tab PO BID 09/30/22 04/23/24 History carbonate)-vitamin D3 10 mcg (400 unit) tablet (Calcium 500 + D) potassium chloride 10 mEq 10 meq PO TID 09/30/22 04/23/24 History tablet,extended release(part/cryst) (Klor-Con M) spironolactone 25 mg tablet 12.5 mg (1/2 x 25 mg) PO DAILY #30 10/05/22 04/23/24 Rx tabs ondansetron 4 mg disintegrating 4 mg PO Q6H PRN Nausea/Vomiting 04/25/23 04/23/24 History tablet amiodarone 200 mg tablet 200 mg PO QAM 01/26/24 04/23/24 History vibegron 75 mg tablet (Gemtesa) 75 mg PO DAILY 01/26/24 04/23/24 History calcium 500 mg tablet 500 mg PO QAM 04/23/24 04/23/24 History docusate sodium 100 mg capsule 100 mg PO .INSTRUCTIONS 04/23/24 04/23/24 History (Colace) furosemide 20 mg tablet 20 mg PO QAM PRN Leg 04/23/24 04/23/24 History Swelling/Weight Gain psyllium husk 0.4 gram capsule 0.4 g PO DAILY 04/23/24 04/23/24 History (Metamucil) Patient History Medical History (Updated 04/24/24 @ 11:18 by Maria Ines Kerns MD, PhD) MGUS (monoclonal gammopathy of unknown significance) Seasonal allergies Incontinence of urine Nausea and vomiting after administration of anesthetic agent History of COVID-19 2020- no hosp; resolved GERD (gastroesophageal reflux disease) HLD (hyperlipidemia) HTN (hypertension) Surgical History Hx of cardiac catheterization ~2018, prior to valve replacement, no stents History of esophagogastroduodenoscopy (EGD) Hx of colonoscopy H/O: hysterectomy S/P repair of paraesophageal hernia History of total knee arthroplasty S/P aortic valve replacement with bioprosthetic valve ~2018- [facility] Family History Other Cancer Diabetes Social History Smoking Status: Former smoker Second Hand Exposure: No; Do You Dip or Chew Tobacco: No; Hx Alcohol Use: No Hx Substance Use: No Preferred Language: Yoruba Communication Ability: Effective Visual Impairment: Severely Limited Hearing Ability: Hard of Hearing Mint Machine Operator Required: No Beliefs That Will Affect Care: None marital status: / Current Living Situation: Family Current Living Situation Comment: Usually lives in [place] with daughter. Currently visiting other daughter current occupational status: retired How many Children do You have: 3 How many Children do You have Comment: all able to assist with care Other Information That Helps Us Care for You: No Feels Safe at Home: Yes Diet: regular caffeine: Yes during the past year weight has: remained stable Assistive Devices: Lift Chair and Walker Review of Systems 2 Review of Systems: All systems reviewed & are unremarkable except as noted in HPI & below Physical Exam 2 Constitutional: well developed (sitting up in chair on RA), + thin, + frail appearing and cooperative; no acute distress Eyes: EOM intact bilaterally ENMT: Mouth: + dry oral mucous membranes Respiratory: normal respiratory effort Auscultation: + diminished lung sounds Cardiovascular: RRR, no murmur, no edema Gastrointestinal (Abdomen): Inspection/Auscultation: normal bowel sounds P ercussion/Palpation: abdomen soft; abdomen nontender Musculoskeletal: Extremities: strength 5/5 throughout Skin: no rashes, warm and dry (bandaged tear R pretibial) Neurologic: palomo, fluent speech, no tremor Results & Data Vital Signs (Past 12 Hours) Vital Signs Temp Pulse Pulse Resp BP BP Pulse Ox 04/24/24 08:43 04/24/24 08:07 36.4 C L 87 20 153/90 H 93 04/24/24 07:12 95 H 04/24/24 04:00 36.5 C 71 18 142/85 H 94 O2 Del Method 04/24/24 08:43 Room Air 04/24/24 08:07 Room Air 04/24/24 07:12 04/24/24 04:00 Room Air Laboratory Results 04/24/24 05:38 04/24/24 05:[address], chest/rib/R forearm XRs all w/o acute fracture
[2024-04-24] MEDS ORDERED: ZOLEDRONIC ACID 5 MG in EMPTY BAG 1 ML IV ONE (13:19)
[2024-04-24] MEDS ORDERED: ZOLEDRONIC ACID 4 MG in NS MINI-B 100 ML IV ONE (13:45)
[2024-04-24] MEDS: ZOLEDRONIC ACID 4 MG in NS MINI-B 100 ML IV ONE (15:22)
[2024-04-25 07:05] LABS: Anion Gap 5 (3-11); BUN Creatinine Ratio 27.8 (10-20); Blood Urea Nitrogen 22 mg/dl (6-23); Carbon Dioxide 27 mmol/L (21-32); Chloride 104 mmol/L (98-107); Glucose 104 mg/dl (70-99(Fasting)); Immunoglobulin A 13.8 mg/dl (70-400); Immunoglobulin M < 20.0 mg/dl (45-281); Magnesium 1.5 mg/dl (1.7-2.4); Potassium 3.3 mmol/L (3.5-5.1); Sodium 136 mmol/L (136-145)
[2024-04-25 07:20] LABS: Immunoglobulin G 4738.3 mg/dl (635-1741)
[2024-04-25] MEDS: ACETAMINOPHEN 325 MG TAB PO PRN (08:47)
[2024-04-25] MEDS: POTASSIUM CHLORIDE PWD 20 MEQ PACK PO SCH (08:47)
--- NOTE | 2024-04-25 08:51 | Hospitalist Progress Note ---
Date of Service April 25, 2024 Assessment & Plan (1) Hypercalcemia: (2) Chest wall contusion: (3) Dysphagia: (4) Ambulatory dysfunction: (5) Age-related cognitive decline: (6) MGUS (monoclonal gammopathy of unknown significance): (7) Hypomagnesemia: (8) Skin tear of left forearm without complication: (9) Paroxysmal atrial fibrillation: (10) Chronic diastolic CHF (congestive heart failure): (11) UTI (urinary tract infection): Plan Patient had choking episode on a pill last week that daughter performed the Heimlich maneuver on her. Since then family has seen a really rapid decline in her mobility and actually even her oral intake. Family reported worsening functional status, poor intake and mild cognitive impairment In the emergency room noted to be hypercalcemic and urinalysis consistent with possible urinary tract infection. Suspect patient had's chest wall contusion from Heimlich and significant fear of eating and drinking after that event over the past week has not done much activity, has not eaten or drank her normal and subsequently rapidly declined from a physical conditioning standpoint and has hypercalcemia due to dehydration, oral supplementation and also may have developed a UTI. 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 Off IVF. Monitor BP for now DVT ppx- SCD. No pharm agent for now due to thrombocytopenia. Monitor I spent a total of 50 minutes coordinating, documenting and providing care for this patient excluding time spent in performance of separately billed services Admission and Anticipated Discharge Date Admission Date: April 23, 2024 Subjective Patient seen and examined Reports generalized weakness and mild lower rib pain (from Heimlick) Denied other complaints Physical Exam Constitutional: + well hydrated and + thin; no acute dis tress Eyes: PERRL, conjunctivae normal, anicteric sclerae ENMT: external ear and nose normal, oropharynx normal Respiratory: normal respiratory effort, lungs clear to auscultation Cardiovascular: Rate/Rhythm: regular rate and regular rhythm Gastrointestinal (Abdomen): normal bowel sounds, soft, nontender, no hepatosplenomegaly Musculoskeletal: No pedal edema Neurologic: PERRL, EOMI, accommodation nl, no face palsy, no dysarthria Psychiatric: A+Ox3, euthymic affect Results & Data Results & Data Vital Signs (Past 12 Hours) Vital Signs Temp Pulse Resp BP Pulse Ox O2 Del Method 04/25/24 07:54 36.4 C L 92 H 16 175/93 H 92 Room Air 04/24/24 22:13 36.8 C 97 H 18 118/61 91 Room Air Laboratory Results Abnormal lab results 04/25/24 04/25/24 Range/Units 05:48 09:13 Potassium 3.3 L (3.5-5.1) mmol/L BUN/Creatinine Ratio 27.8 H (10-20) Glucose 104 H (70-99(Fasting)) mg/dl Magnesium 1.5 L (1.7-2.4) mg/dl U Random Total Protein 66.1 H (0-11.9) mg/dl Protein/Creatinin Ratio 1.6 H (0-0.2) IgG 4738.3 H (635-1741) mg/dl IgA 13.8 L (70-400) mg/dl IgM < 20.0 L (45-281) mg/dl
[2024-04-25 09:47] LABS: Creatinine Urine Random 41.4 mg/dl; Protein Creatinine Ratio Urine 1.6 (0-0.2); Total Protein Urine Random 66.1 mg/dl (0-11.9)
--- NOTE | 2024-04-25 12:41 | Nephrology Progress Note ---
Date of Service April 25, 2024 Assessment & Plan (1) Hypercalcemia: Plan: today resolved severe hypercalcemia. presented w/ calcium 13.4, albumin 2.7 in the setting of reported MGUS, though sounds like this had been followed for past years by PCP > corrects to 14.4 for admission value. creatinine remains wnl. 25OHD level 34, PTH appropriately suppressed. will reassess MGUS activity > could transform to multiple myeloma or other potentially; or could be dehydration w/ high Ca intake; no e/o vitamin D intoxication. calcium down to 10 today; responded to calcitonin and NS; got zoledronate 4 mg IV on 04/24 -NS appropriately stopped -stopped further calcitonin -alerted daughter, hospitalist of possibility (though not likely) of overshooting Ca correction -daily bmp -agree w/ mag, phos levels ordered for am -continue mag ox bid; avoid slo mag given Ca issues medication changes /plans, dispo, labs reviewed w/ Dr Rose in person; we are in agreement. (2) Hypomagnesemia: Plan: mild and stable despite supplementation; mag 1.5 today -check daily -continue K and mag supplementation po (3) Frequent falls: Plan: high calcium levels may have had a role in the generalized weakness leading to frequent falls; still quite weak today w/ improved calcium > fix calcium; PT evaluation (4) MGUS (monoclonal gammopathy of unknown significance): Plan: IgM is quite low as is IgA and IgG is 2.7X higher than ULN. >> with low serum albumin, creeping (as OP CA high normal or up to 10. 6 x 3 checks since 06/2023) hypercalcemia, high serum protein noted in January), trace dipstick proteinuria and 1.6 gm proteinuria on spot ratio; no anemia currently -need biopsy report from bone marrow biopsy as well as d/c summary from [place] > will ask DIL for more info and have my clinic nurses get that > better to put on [email or web address] system for OP f/u >f/u pending labs > spep, bence luu on spot testing, beta 2 microglobulin, serum MARILIA, kappa/lambda ratio (didn't see any of these recently done in [email or web address] system) -may need close-in f/u after d/c w/ hematology depending on results of above; note many reference labs and may take time to post; daughter aware Admission and Anticipated Discharge Date Admission Date: April 23, 2024 Subjective seen and evaluated 11 AM ; daugther bedside; pt in bed, quite tired; had agitation, visual hallucinations yesterday late in day; no sob, no n/v. still quite weak; still significant trouble swallowing; no uncontrolled pain abd or muscskel Review of Systems Review of Systems: All systems reviewed & are unremarkable except as noted in Subjective Physical Exam Constitutional: well developed (intermittently dosing in bed on RA), + thin, + frail appearing and cooperative; no acute distress Eyes: EOM intact bilaterally ENMT: Mouth: + dry oral mucous membranes spluttering cough and challenges getting straw to mouth Respiratory: normal respiratory effort Auscultation: + diminished lung sounds Cardiovascular: RRR, no murmur, no edema Gastrointestinal (Abdomen): Inspection/Auscultation: normal bowel sounds Percussion/Palpation: abdomen soft; abdomen nontender Musculoskeletal: Extremities: strength 5/5 throughout Skin: no rashes, warm and dry (bandaged tear R pretibial) Neurologic: palomo, fluent/ limited speech, no tremor Results & Data Vital Signs (Past 12 Hours) Vital Signs Temp Pulse Resp BP Pulse Ox O2 Del Method 04/25/24 11:35 36.4 C L 90 16 163/94 H 92 Room Air 04/25/24 09:58 Room Air 04/25/24 07:54 36.4 C L 92 H 16 175/93 H 92 Room Air
--- NOTE | 2024-04-25 16:52 | Electrocardiogram Report ---
Test Reason : Blood Pressure : */* mmHG Vent. Rate : 83 BPM Atrial Rate : * BPM P-R Int : * ms QRS Dur : 172 ms QT Int : 432 ms P-R-T Axes : * -54 25 degrees QTcB Int : 507 ms Atrial fibrillation Right bundle branch block Left anterior fascicular block Bifascicular block Minimal voltage criteria for LVH, may be normal variant ( R in aVL ) Abnormal ECG When compared with ECG of 07-Mar-2023 11:47, Atrial fibrillation has replaced Sinus rhythm Confirmed by Butch Strange ([id number]) on 04/25/2024 4:52:11 PM Referred By: Confirmed By: Butch Strange
--- NOTE | 2024-04-25 17:07 | Electrocardiogram Report ---
Test Reason : Blood Pressure : */* mmHG Vent. Rate : 92 BPM Atrial Rate : 117 BPM P-R Int : * ms QRS Dur : 178 ms QT Int : 444 ms P-R-T Axes : * -62 107 degrees QTcB Int : 549 ms Atrial fibrillation Right bundle branch block Left anterior fascicular block Bifascicular block Voltage criteria for left ventricular hypertrophy Abnormal ECG When compared with ECG of 23-Apr-2024 16:25, No significant change was found Confirmed by Butch Strange ([id number]) on 04/25/2024 5:07:23 PM Referred By: REFERRED SELF Confirmed By: Butch Strange
[2024-04-26 07:51] LABS: Hematocrit (blood only) 34.5 % (37.0-47.0); Hemoglobin 11.6 g/dl (12.0-16.0); Mean Corpuscular Hgb Conc 33.6 g/dL (32.0-36.0); Mean Corpuscular Volume 101.2 fL (80.0-100.0); Mean Platelet Volume 10.5 fL (9.4-12.4); Platelet Count 83 K/uL (130-400); RDW Coefficient of Variation 13.6 % (11.5-14.5); RDW Standard Deviation 50.6 fL (36.4-46.3); Red Blood Count 3.41 M/uL (4.20-5.40); White Blood Count 8.91 K/ul (4.8-10.8)
[2024-04-26 07:56] LABS: BUN Creatinine Ratio 40.3 (10-20); Calcium 9.3 mg/dl (8.6-10.3); Magnesium 1.6 mg/dl (1.7-2.4); Phosphorus 1.6 mg/dl (2.5-4.9); Potassium 3.3 mmol/L (3.5-5.1)
--- NOTE | 2024-04-26 09:26 | Hospitalist Progress Note ---
Date of Service April 26, 2024 Assessment & Plan (1) Hypercalcemia: (2) Chest wall contusion: (3) Dysphagia: (4) Ambulatory dysfunction: (5) Age-related cognitive decline: (6) MGUS (monoclonal gammopathy of unknown significance): (7) Hypomagnesemia: (8) Skin tear of left forearm without complication: (9) Paroxysmal atrial fibrillation: (10) Chronic diastolic CHF (congestive heart failure): (11) UTI (urinary tract infection): Plan Patient had choking episode on a pill last week that daughter performed the Heimlich maneuver on her. Since then family has seen a really rapid decline in her mobility and actually even her oral intake. Family reported worsening functional status, poor intake and mild cognitive impairment In the emergency room noted to be hypercalcemic and urinalysis consistent with possible urinary tract infection. Suspect patient had's chest wall contusion from Heimlich and significant fear of eating and drinking after that event over the past week has not done much activity, has not eaten or drank her normal and subsequently rapidly declined from a physical conditioning standpoint and has hypercalcemia due to dehydration, oral supplementation and also may have developed a UTI. Hypercalcemia improved with hydration, Continue to hold calcium supplements Ca is 9.3 today (from 13.4 on admission) Nephrology recs noted Off calcitonin Follow up SPEP labs Records [facility] from [facility] per Nephrology PO potassium was changed to powder due to issues with pills Replete hypokalemia, hypophosphatemia and hypomagnesemia BIRD KEEPER eval/recs noted Discussed with BIRD KEEPER and daughter yesterday Planned for video swallow study tomorrow Continue bite sized diet Aspiration precautions Urine culture growing E coli Patient has UTI Continue IV ceftriaxone PT/OT eval noted Rehab recommended CM working on placement DVT ppx- SCD. No pharm agent for now due to thrombocytopenia. Monitor I spent a total of 50 minutes coordinating, documenting and providing care for this patient excluding time spent in performance of separately billed services Admission and Anticipated Discharge Date Admission Date: April 23, 2024 Subjective Patient seen and examined Reports some dysphagia yesterday RN reported she took her pills fine today and still weak No events overnight Physical Exam Constitutional: + well hydrated and + thin; no acute dis tress Eyes: PERRL, conjunctivae normal, anicteric sclerae ENMT: external ear and nose normal, oropharynx normal Respiratory: normal respiratory effort, lungs clear to auscultation Cardiovascular: Rate/Rhythm: regular rate and regular rhythm Gastrointestinal (Abdomen): normal bowel sounds, soft, nontender, no hepatosplenomegaly Musculoskeletal: No pedal edema Neurologic: PERRL, EOMI, accommodation nl, no face palsy, no dysarthria Psychiatric: A+Ox3, euthymic affect Results & Data Results & Data Vital Signs (Past 12 Hours) Vital Signs Temp Pulse Resp BP Pulse Ox O2 Del Method 04/26/24 07:50 36.5 C 73 20 147/82 H 92 Room Air 04/25/24 22:18 36.8 C 69 16 127/66 92 Room Air Laboratory Results Abnormal lab results 04/25/24 04/26/24 Range/Units 09:13 07:27 RBC 3.41 L (4.20-5.40) M/uL Hgb 11.6 L (12.0-16.0) g/dl Hct 34.5 L (37.0-47.0) % MCV 101.2 H (80.0-100.0) fL RDW Std Deviation 50.6 H (36.4-46.3) fL Plt Count 83 L (130-400) K/uL Sodium 135 L (136-145) mmol/L Potassium 3.3 L (3.5-5.1) mmol/L BUN 29 H (6-23) mg/dl BUN/Creatinine Ratio 40.3 H (10-20) Phosphorus 1.6 L (2.5-4.9) mg/dl Magnesium 1.6 L (1.7-2.4) mg/dl U Random Total Protein 66.1 H (0-11.9) mg/dl Protein/Creatinin Ratio 1.6 H (0-0.2)
--- NOTE | 2024-04-26 11:01 | Nephrology Progress Note ---
Date of Service April 26, 2024 Assessment & Plan (1) Hypercalcemia: Plan: resolved severe hypercalcemia. presented 04/23 w/ calcium 13.4, albumin 2.7 in the setting of reported MGUS, though sounds like this had been followed for past years by PCP > corrects to 14.4 for admission value. creatinine remains wnl. 25OHD level 34, PTH appropriately suppressed. MGUS activity reassessment pending > could transform to multiple myeloma or other potentially; or could be dehydration w/ high Ca intake; no e/o vitamin D intoxication. calcium down to 9.3 today; responded to calcitonin and NS; got zoledronate 4 mg IV on 04/24 >again alerted daughter, hospitalist of possibility (though not likely) of overshooting Ca correction -daily bmp, mag, phos checks to continue >changed mag ox to slo mag for now as better tolerated and calcium normalized; reevaluate this at d/c >need to strongly encourage PO; ? if provider contracting consultant will help here given swallowing challenges; did remove low Na order and changed to regular diet >agree w/ phosNaK ; wean as feasible >changed K supplements to IV given swallowing challenges > gave 20 mEq IV K acetate -held iron tabs as anemia ok/stable and minimzing pill burden medication changes /plans, dispo, labs reviewed w/ Dr Rose via TText; we are in agreement. (2) Hypomagnesemia: Plan: mild and stable despite supplementation; mag 1.6 today -check daily -continue K and mag supplementation as above (3) Frequent falls: Plan: high calcium levels (and possibly low phos) may have had a role in the generalized weakness leading to frequent falls; still quite weak today w/ improved calcium but phos low > fix chemistries; PT evaluation (4) MGUS (monoclonal gammopathy of unknown significance): Plan: IgM is quite low as is IgA and IgG is 2.7X higher than ULN. has low serum albumin, creeping (as OP CA high normal or up to 10. 6 x 3 checks since 06/2023) hypercalcemia, high serum protein noted in January), trace dipstick proteinuria and 1.6 gm proteinuria on spot ratio; no anemia currently >looked for but will need to f/u -biopsy report from bone marrow biopsy as well as d/c summary from 2020 hospital at [facility] > appreciate hospitalist/staff help on this -pending labs > [place] on spot testing, beta 2 microglobulin, serum MARILIA, kappa/lambda ratio (didn't see any of these recently done in [facility] [employer] system) -may need close-in f/u after d/c w/ hematology depending on results of above; note many reference labs and may take time to post; daughter aware Admission and Anticipated Discharge Date Admission Date: April 23, 2024 Subjective no interval events; phos and mag low, shen phos (first time checked this admission); for swallow study in AM > weakness has limited swallow eval options. minimal po yesterday but per report ate well this am; daughter thinks she'd eat more if more sodium Review of Systems 2 Review of Systems: All systems reviewed & are unremarkable except as noted in Subjective Physical Exam 2 Constitutional: well developed (up in chair on RA), + thin, + frail appearing and cooperative; no acute distress Eyes: EOM intact bilaterally ENMT: Mouth: + dry oral mucous membranes Respiratory: normal respiratory effort Auscultation: + diminished lung sounds Cardiovascular: Rate/Rhythm: + irregularly irregular Heart Sounds: + murmur Extremities: no edema Gastrointestinal (Abdomen): Inspection/Auscultation: normal bowel sounds P ercussion/Palpation: abdomen soft; abdomen nontender Musculoskeletal: Extremities: strength 5/5 throughout Skin: no rashes, warm and dry (bandaged tear R pretibial) Results & Data Vital Signs (Past 12 Hours) Vital Signs Temp Pulse Resp BP Pulse Ox O2 Del Method 04/26/24 09:58 Room Air 04/26/24 07:50 36.5 C 73 20 147/82 H 92 Room Air Laboratory Results 04/26/24 07:27 04/26/24 07:27 phos 1.6, mag 1.6
[2024-04-26] MEDS: POT PHOSPHATE MONOBASIC W/ SOD TAB PO SCH ×2 (11:47→14:45)
[2024-04-26] MEDS: POTASSIUM ACETATE/NSS 10 MEQ/105 ML BAG IV SCH (14:30)
[2024-04-26] MEDS: MAGNESIUM CHLORIDE W/CALCIUM 64MG DELAYED REL TAB PO SCH (20:39)
[2024-04-27 06:41] LABS: Mean Corpuscular Hemoglobin 34.6 pg (25.0-34.0); Mean Corpuscular Hgb Conc 34.4 g/dL (32.0-36.0); Mean Corpuscular Volume 100.6 fL (80.0-100.0); Mean Platelet Volume 10.9 fL (9.4-12.4); Platelet Count 78 K/uL (130-400); RDW Coefficient of Variation 13.6 % (11.5-14.5); RDW Standard Deviation 50.7 fL (36.4-46.3); Red Blood Count 3.18 M/uL (4.20-5.40); White Blood Count 6.37 K/ul (4.8-10.8)
[2024-04-27 06:59] LABS: BUN Creatinine Ratio 44.9 (10-20); Calcium 8.4 mg/dl (8.6-10.3); Creatinine Clr Calc Pharmacy 43.4 ml/min; Magnesium 1.5 mg/dl (1.7-2.4); Phosphorus 1.7 mg/dl (2.5-4.9); Potassium 3.4 mmol/L (3.5-5.1)
[2024-04-27 08:57] LABS: Albumin 2.8 g/dL (3.8-4.8); Alpha 1 Globulin 0.3 g/dL (0.2-0.3); Alpha 2 Globulin 0.7 g/dL (0.5-0.9); Beta-1-Globulin 0.3 g/dL (0.4-0.6); Beta-2-Globulin 0.2 g/dL (0.2-0.5); Beta-2-Microglobulin 6.22 mg/L (< OR = 2.51); Free Kappa 12.7 mg/L (3.3-19.4); Free Kappa/Lambda Ratio <0.01 (0.26-1.65); Free Lambda 2623.4 mg/L (5.7-26.3); Gamma Globulin 4.3 g/dL (0.8-1.7); Monoclonal Protein Band 1 0.1 g/dL (NONE DETECTED); Monoclonal Protein Band 2 4.1 g/dL (NONE DETECTED); Monoclonal Protein Band 3 DNR g/dL (NONE DETECTED); Total Protein 8.7 g/dL (6.1-8.1)
--- NOTE | 2024-04-27 10:21 | Hospitalist Progress Note ---
Date of Service April 27, 2024 Assessment & Plan (1) Hypercalcemia: (2) Chest wall contusion: (3) Dysphagia: (4) Ambulatory dysfunction: (5) Age-related cognitive decline: (6) MGUS (monoclonal gammopathy of unknown significance): (7) Hypomagnesemia: (8) Skin tear of left forearm without complication: (9) Paroxysmal atrial fibrillation: (10) Chronic diastolic CHF (congestive heart failure): (11) UTI (urinary tract infection): Plan Patient had choking episode on a pill last week that daughter performed the Heimlich maneuver on her. Since then family has seen a really rapid decline in her mobility and actually even her oral intake. Family reported worsening functional status, poor intake and mild cognitive impairment In the emergency room noted to be hypercalcemic and urinalysis consistent with possible urinary tract infection. Suspect patient had's chest wall contusion from Heimlich and significant fear of eating and drinking after that event over the past week has not done much activity, has not eaten or drank her normal and subsequently rapidly declined from a physical conditioning standpoint and has hypercalcemia due to dehydration, oral supplementation and also may have developed a UTI. Hypercalcemia now resolved after treatment with calcitonin, IVF and zolendronate Ca is down to 8.4 today Nephrology resumed calcium and Vit D Some SPEP lab results. Continue to replete hypokalemia, hypophosphatemia and hypomagnesemia AGILE COACH eval/recs noted Videostudy reviewed. No aspiration noted Continue bite sized diet Aspiration precautions Urine culture growing E coli Patient has UTI Continue IV ceftriaxone PT/OT eval noted Rehab recommended CM working on placement Called daughter Brianne and updated her. Also communicated that patient will need to follow up with Car Record Clerk about her MGUS DVT ppx- SCD. No pharm agent for now due to thrombocytopenia. Monitor I spent a total of 50 minutes coordinating, documenting and providing care for this patient excluding time spent in performance of separately billed services Admission and Anticipated Discharge Date Admission Date: April 23, 2024 Subjective Patient seen and examined No new complaints today Physical Exam Constitutional: + well hydrated and + thin; no acute dis tress Eyes: PERRL, conjunctivae normal, anicteric sclerae ENMT: external ear and nose normal, oropharynx normal Respiratory: normal respiratory effort, lungs clear to auscultation Cardiovascular: Rate/Rhythm: regular rate and regular rhythm Gastrointestinal (Abdomen): normal bowel sounds, soft, nontender, no hepatosplenomegaly Musculoskeletal: No pedal edema Neurologic: PERRL, EOMI, accommodation nl, no face palsy, no dysarthria Psychiatric: A+Ox3, euthymic affect Results & Data Results & Data Vital Signs (Past 12 Hours) Vital Signs Temp Pulse Resp BP Pulse Ox O2 Del Method 04/27/24 07:43 Room Air 04/27/24 07:33 36.6 C 77 16 127/67 93 Room Air 04/26/24 22:59 36.3 C L 79 16 104/65 91 Room Air Laboratory Results Abnormal lab results 04/25/24 04/27/24 Range/Units 05:48 05:53 RBC 3.18 L (4.20-5.40) M/uL Hgb 11.0 L (12.0-16.0) g/dl Hct 32.0 L (37.0-47.0) % MCV 100.6 H (80.0-100.0) fL MCH 34.6 H (25.0-34.0) pg RDW Std Deviation 50.7 H (36.4-46.3) fL Plt Count 78 L (130-400) K/uL Sodium 135 L (136-145) mmol/L Potassium 3.4 L (3.5-5.1) mmol/L BUN 35 H (6-23) mg/dl BUN/Creatinine Ratio 44.9 H (10-20) Calcium 8.4 L (8.6-10.3) mg/dl Phosphorus 1.7 L (2.5-4.9) mg/dl Magnesium 1.5 L (1.7-2.4) mg/dl Total Protein (PEP) 8.7 H (6.1-8.1) g/dL Albumin (PEP) 2.8 L (3.8-4.8) g/dL Ramx-3-Ieezhbjz 0.3 L (0.4-0.6) g/dL Iffn-6-Cxxvwhkaurtjz 6.22 H (< OR = 2.51) mg/L Gamma Globulins 4.3 H (0.8-1.7) g/dL Ser Monoclonl Protein 0.1 H (NONE DETECTED) g/dL Ser Monoclonal Prot 2 4.1 H (NONE DETECTED) g/dL Free Lambda LC, Quant 2623.4 H (5.7-26.3) mg/L Free [place]/Lambda Ratio <0.01 L (0.26-1.65)
--- NOTE | 2024-04-27 11:21 | Fluoroscopy Report ---
FL video swallow CLINICAL HISTORY: 88 years-old Female with assess for aspiration. Dysphagia with possible aspiration TECHNIQUE: Video fluoroscopic evaluation of swallowing was performed in the AP and lateral projection s by the speech pathology staff. The patient is fed varying consistencies of barium. FLUOROSCOPY TIME: 2.01 minutes. 2926 images were obtained. 9.84 mGy. COMPARISON STUDY: None. FINDINGS: There is generally normal hyoid excursion and epiglottic deflection throughout the exam. La ryngeal penetration with initial thin liquid barium. No aspiration identified. Swallowing function is otherwise within normal limits. IMPRESSION: 1. No aspiration identified. 2. Please see the speech pathologist report for detailed findings and recommendations. ACT 112: Negative or not required by law. Electronically signed by: Miguel Angel Cooper M.D. 04/27/2024 11:18 AM
[2024-04-27] MEDS: MAGNESIUM SULFATE / D5W 1 GM/100 ML BAG IV ONE (11:35)
--- NOTE | 2024-04-27 16:42 | Nephrology Progress Note ---
Date of Service April 27, 2024 Assessment & Plan (1) Hypercalcemia: Plan: resolved severe hypercalcemia. presented 04/23 w/ calcium 13.4, albumin 2.7 in the setting of reported MGUS, though sounds like this had been followed for past years by PCP > corrects to 14.4 for admission value. creatinine remains wnl. 25OHD level 34, PTH appropriately suppressed. MGUS activity reassessment pending > could transform to multiple myeloma or other potentially; or could be dehydration w/ high Ca intake; no e/o vitamin D intoxication. calcium down to 8.4 today; responded to calcitonin and NS; got zoledronate 4 mg IV on 04/24 >>>did d/w daughters, hospitalist she is overshooting Ca correction -daily bmp, mag, phos checks to continue -cont instead of mag ox slo mag for now as better tolerated and calcium rich; reevaluate this med at d/c >>>strongly encourage PO; ? if flight readiness technician will help here given swallowing challenges; continue regular diet >>>continue 2 tab qid phosNaK >>changed K supplements to IV given swallowing challenges > gave 4 x 10 mEq IV K chloride plus resumed 10 mEq po K tid >>cont to hold iron tabs as anemia ok/stable and minimizing pill burden >>she will need close in f/u of labs after d/c given above changes medication changes back to Ca supplements, MGUS f/u test results, dispo, labs reviewed w/ Dr Rose via TText and in person; we are in agreement. (2) Hypomagnesemia: Plan: mild and stable despite supplementation; mag 1.5 today -check daily -continue K and mag supplementation as above (3) Frequent falls: Plan: high calcium levels (and possibly low phos) may have had a role in the generalized weakness leading to frequent falls; still quite weak today w/ improved calcium but phos low > fix chemistries; PT evaluation (4) MGUS (monoclonal gammopathy of unknown significance): Plan: serologies came back w/ IgG lambda paraproteinemia; K/L ration <0.01; Beta 2 microglobulin high IgM is quite low as is IgA and IgG is 2.7X higher than ULN. has low serum albumin, creeping (as OP CA high normal or up to 10. 6 x 3 checks since 06/2023) hypercalcemia, high serum protein noted in January), trace dipstick proteinuria and 1.6 gm proteinuria on spot ratio; no anemia currently >looked for but will need to f/u -biopsy report from bone marrow biopsy as well as d/c summary from 2020 hospital at [facility] > appreciate hospitalist/staff help on this ->>>>at d/c suggest OP c/s w/ hematology versus ask a doc depending on clinical goals Admission and Anticipated Discharge Date Admission Date: April 23, 2024 Subjective delayed entry; pt seen on late AM rounds today just as she was coming back from swallow study; transferred w/ 2 asst from w/c to chair; no new issues on swallow study per report; ate a bit better today; no sob, no n/v; no new/worrisome voiding concerns; still very weak Review of Systems 2 Review of Systems: All systems reviewed & are unremarkable except as noted in Subjective Physical Exam 2 Constitutional: well developed (up in chair on RA), + thin, + frail appearing and cooperative; no acute distress Eyes: EOM intact bilaterally ENMT: Mouth: + dry oral mucous membranes Respiratory: normal respiratory effort Auscultation: + diminished lung sounds Cardiovascular: Rate/Rhythm: + irregularly irregular Heart Sounds: + murmur Extremities: no edema Gastrointestinal (Abdomen): Inspection/Auscultation: normal bowel sounds P ercussion/Palpation: abdomen soft; abdomen nontender Musculoskeletal: Extremities: strength 5/5 throughout Skin: no rashes, warm and dry (bandaged tear R pretibial) Neurologic: palomo, fluent appropriate speech mostly, Results & Data Vital Signs (Past 12 Hours) Vital Signs Temp Pulse Resp BP BP Pulse Ox O2 Del Method 04/27/24 16:07 36.3 C L 67 16 120/63 96 Room Air 04/27/24 11:48 36.6 C 81 16 105/58 L 96 Room Air 04/27/24 07:43 Room Air 04/27/24 07:33 36.6 C 77 16 127/67 93 Room Air Laboratory Results 04/27/24 05:53 04/27/24 05:53
[2024-04-27] MEDS ORDERED: POTASSIUM ACETATE/NSS 10 MEQ/105 ML BAG IV SCH (16:45)
[2024-04-27] MEDS: POTASSIUM CHLORIDE / WTR 10 MEQ/100 ML PLCT IV SCH (18:18)
[2024-04-27] MEDS: CALCITRIOL 0.25 MCG CAPSULE PO SCH (18:26)
[2024-04-27] MEDS: CHOLECALCIFEROL 125 MCG (5,000 UNITS) TAB PO SCH (20:27)
[2024-04-28 07:05] LABS: BUN Creatinine Ratio 36.4 (10-20); Calcium 8.1 mg/dl (8.6-10.3); Creatinine Clr Calc Pharmacy 44.6 ml/min; Magnesium 1.7 mg/dl (1.7-2.4); Phosphorus 1.9 mg/dl (2.5-4.9); Potassium 3.3 mmol/L (3.5-5.1)
--- NOTE | 2024-04-28 08:33 | Hospitalist Progress Note ---
Date of Service April 28, 2024 Assessment & Plan (1) Hypercalcemia: (2) Chest wall contusion: (3) Dysphagia: (4) Ambulatory dysfunction: (5) Age-related cognitive decline: (6) MGUS (monoclonal gammopathy of unknown significance): (7) Hypomagnesemia: (8) Skin tear of left forearm without complication: (9) Paroxysmal atrial fibrillation: (10) Chronic diastolic CHF (congestive heart failure): (11) UTI (urinary tract infection): Plan Patient had choking episode on a pill last week that daughter performed the Heimlich maneuver on her. Since then family has seen a really rapid decline in her mobility and actually even her oral intake. Family reported worsening functional status, poor intake and mild cognitive impairment In the emergency room noted to be hypercalcemic and urinalysis consistent with possible urinary tract infection. Suspect patient had's chest wall contusion from Heimlich and significant fear of eating and drinking after that event over the past week has not done much activity, has not eaten or drank her normal and subsequently rapidly declined from a physical conditioning standpoint and has hypercalcemia due to dehydration, oral supplementation and also may have developed a UTI. Hypercalcemia now resolved after treatment with calcitonin, IVF and zolendronate Ca is down to 8.1 today Nephrology resumed cholecalciferol and added calcitriol Still has hypokalemia and hypophosphatemia Discussed with Engineering Aid Dr Barfield. Reviewed labs He recommends increasing MgCl to 64mg TID, give IV CaCl 2g and IV potassium phos repletion Had urinary retention Get USS bladder If still retaining, place blas ELECTRONIC SCIENCE TEACHER eval/recs noted Videostudy reviewed. No aspiration noted Continue bite sized diet Aspiration precautions Urine culture growing E coli Patient has UTI Continue IV ceftriaxone PT/OT eval noted Rehab recommended CM working on placement Patient needs follow up with Hematology outpatient regarding her MGUS and SPEP labs. Daughter aware DVT ppx- SCD. No pharm agent for now due to thrombocytopenia. Monitor I spent a total of 50 minutes coordinating, documenting and providing care for this patient excluding time spent in performance of separately billed services Admission and Anticipated Discharge Date Admission Date: April 23, 2024 Subjective Patient seen and examined Reports being tired Denied other complaints RN reported she had urinary retention overnight and had a straight cath Physical Exam Constitutional: + thin; no acute distress Eyes: PERRL, conjunctivae normal, anicteric sclerae ENMT: external ear and nose normal, oropharynx normal Respiratory: normal respiratory effort, lungs clear to auscultation Cardiovascular: Rate/Rhythm: regular rate and regular rhythm Gastrointestinal (Abdomen): normal bowel sounds, soft, nontender, no hepatosplenomegaly Musculoskeletal: No pedal edema Neurologic: PERRL, EOMI, accommodation nl, no face palsy, no dysarthria Psychiatric: A+Ox3, euthymic affect Results & Data Results & Data Vital Signs (Past 12 Hours) Vital Signs Temp Pulse Resp BP Pulse Ox O2 Del Method 04/28/24 07:58 Room Air 04/28/24 07:23 36.3 C L 90 18 153/82 H 94 Room Air 04/27/24 22:53 Room Air Laboratory Results Abnormal lab results 04/25/24 04/28/24 Range/Units 05:48 06:11 Sodium 134 L (136-145) mmol/L Potassium 3.3 L (3.5-5.1) mmol/L BUN 28 H (6-23) mg/dl BUN/Creatinine Ratio 36.4 H (10-20) Glucose 106 H (70-99(Fasting)) mg/dl Calcium 8.1 L (8.6-10.3) mg/dl Phosphorus 1.9 L (2.5-4.9) mg/dl Total Protein (PEP) 8.7 H (6.1-8.1) g/dL Albumin (PEP) 2.8 L (3.8-4.8) g/dL Vnee-9-Kieqrgsv 0.3 L (0.4-0.6) g/dL Esav-1-Irbrezoeppvli 6.22 H (< OR = 2.51) mg/L Gamma Globulins 4.3 H (0.8-1.7) g/dL Ser Monoclonl Protein 0.1 H (NONE DETECTED) g/dL Ser Monoclonal Prot 2 4.1 H (NONE DETECTED) g/dL Free Lambda LC, Quant 2623.4 H (5.7-26.3) mg/L Free [place]/Lambda Ratio <0.01 L (0.26-1.65)
[2024-04-28] MEDS ORDERED: POTASSIUM PHOS 3 MMOL/1 ML INFUSION IV STA (09:06)
[2024-04-28] MEDS: POTASSIUM PHOSPHATE 24 MMOL in SODIUM CHLORIDE 0.9% 500 ML IV ONE (09:39)
--- NOTE | 2024-04-28 10:27 | Ultrasound Report ---
EXAM: US Retroperitoneal Limited Renal INDICATION: Pleural drain. TECHNIQUE: Real-time limited ultrasound of the kidneys and bladder with image documentation. COMPARISON: No relevant prior studies available. FINDINGS: Right kidney: 11.6 cm long. Cortical thickness and echotexture maintained. No stones. No solid mass. No hydronephrosis. Left kidney: 11.9 cm long. Cortical thickness and echotexture maintained. No stones. No solid mass. No hydronephrosis. Bladder: Mildly distended measuring 9.9 x 15.6 x 10.6 cm. No abnormality noted. Left ureteral jet is identified. The right is not seen during the study which is often noted due to intermittent peristalsis. IMPRESSION: Mildly distended urinary bladder. No sonographic abnormality of the kidneys or bladder identified. ACT 112: Negative or not required by law. Electronically signed by Asuncion Mcgraw 04-28-2024 10:26 AM
[2024-04-28] MEDS: CALCIUM CHLORIDE IV SCH (11:34)
[2024-04-28] MEDS: NSS IV SCH (11:34)
--- NOTE | 2024-04-28 12:17 | Nephrology Progress Note ---
Date of Service April 28, 2024 Assessment & Plan (1) Hypercalcemia: Plan: Severe hypercalcemia. presented 04/23 w/ calcium 13.4, albumin 2.7 in the setting of reported MGUS, though sounds like this had been followed for past years by PCP > corrects to 14.4 for admission value. creatinine remains wnl. 25OHD level 34, PTH appropriately suppressed. MGUS activity reassessment pending > could transform to multiple myeloma or other potentially; or could be dehydration w/ high Ca intake; no e/o vitamin D intoxication. calcium down to 8.4 today; responded to calcitonin and NS; got zoledronate 4 mg IV on 04/24 >>>Ca is down to 8.1 today Resumed cholecalciferol and added calcitriol Still has hypokalemia and hypophosphatemia Increase MgCl to 64mg TID, give IV CaCl 2g and IV potassium phos repletion -daily bmp, mag, phos checks to continue -Continue w/ slo mag for now. increase to tid today, reevaluate this med at d/c >>>strongly encourage PO; ? if mortgage accounting clerk will help here given swallowing challenges; continue regular diet >>>continue 2 tab qid phosNaK >> Continue w/ oral K supplements >>she will need close in f/u of labs after d/c given above changes . (2) Hypomagnesemia: Plan: mild and stable despite supplementation; mag 1.5 today -check daily -continue K and mag supplementation as above (3) Frequent falls: Plan: high calcium levels (and possibly low phos) may have had a role in the generalized weakness leading to frequent falls; still quite weak today w/ improved calcium but phos low > fix chemistries; PT evaluation (4) MGUS (monoclonal gammopathy of unknown significance): Plan: serologies came back w/ IgG lambda paraproteinemia; K/L ration <0.01; Beta 2 microglobulin high IgM is quite low as is IgA and IgG is 2.7X higher than ULN. has low serum albumin, creeping (as OP CA high normal or up to 10. 6 x 3 checks since 06/2023) hypercalcemia, high serum protein noted in January), trace dipstick proteinuria and 1.6 gm proteinuria on spot ratio; no anemia currently >looked for but will need to f/u -biopsy report from bone marrow biopsy as well as d/c summary from 2020 hospital at [facility] in [place] > appreciate hospitalist/staff help on this ->>>>at d/c suggest OP c/s w/ hematology versus ask a doc depending on clinical goals Admission and Anticipated Discharge Date Admission Date: April 23, 2024 Subjective Patient seen and examined Denied other complaints RN reported she had urinary retention overnight and had a straight cath Review of Systems 2 Review of Systems: All systems reviewed & are unremarkable except as noted in HPI & below Physical Exam 2 Physical Exam: Constitutional: Awake and alert,believes she " eats enough" Respiratory: Bilateral decreased breath sound at bases Cardiovascular: RRR, no murmur, no edema Vessels: no JVD or carotid bruit Chest: normal inspection of chest Abdomen: normal bowel sounds, soft, nontender, no hepatosplenomegaly Skin: no rashes, warm and dry normal turgor Neurologic: Grossly moves all extremities. Results & Data Vital Signs (Past 12 Hours) Vital Signs Temp Pulse Resp BP Pulse Ox O2 Del Method 04/28/24 07:58 Room Air 04/28/24 07:23 36.3 C L 90 18 153/82 H 94 Room Air Laboratory Results 04/27/24 05:53 04/28/24 06:11
[2024-04-28] MEDS: MAGNESIUM CHLORIDE W/CALCIUM 64MG DELAYED REL TAB PO SCH (14:56)
[2024-04-28 19:51] VITALS: RESP 16
[2024-04-29 07:49] LABS: Hematocrit (blood only) 32.6 % (37.0-47.0); Hemoglobin 10.9 g/dl (12.0-16.0); Mean Corpuscular Hemoglobin 33.4 pg (25.0-34.0); Mean Corpuscular Hgb Conc 33.4 g/dL (32.0-36.0); Mean Platelet Volume 11.5 fL (9.4-12.4); Platelet Count 69 K/uL (130-400); RDW Coefficient of Variation 13.8 % (11.5-14.5); RDW Standard Deviation 50.4 fL (36.4-46.3); Red Blood Count 3.26 M/uL (4.20-5.40); White Blood Count 5.51 K/ul (4.8-10.8)
[2024-04-29 08:03] LABS: BUN Creatinine Ratio 35.2 (10-20); Calcium 8.9 mg/dl (8.6-10.3); Creatinine Clr Calc Pharmacy 48.4 ml/min; Magnesium 1.4 mg/dl (1.7-2.4); Phosphorus 3.9 mg/dl (2.5-4.9); Potassium 3.3 mmol/L (3.5-5.1)
[2024-04-29] MEDS: POTASSIUM CHLORIDE PWD 20 MEQ PACK PO ONE (08:43)
[2024-04-29] MEDS: MAGNESIUM SULFATE / D5W 1 GM/100 ML BAG IV ONE ×2 (08:54→12:01)
--- NOTE | 2024-04-29 10:50 | Hospitalist Progress Note ---
Date of Service April 29, 2024 Assessment & Plan (1) Hypercalcemia: (2) Chest wall contusion: (3) Dysphagia: (4) Ambulatory dysfunction: (5) Age-related cognitive decline: (6) MGUS (monoclonal gammopathy of unknown significance): (7) Hypomagnesemia: (8) Skin tear of left forearm without complication: (9) Paroxysmal atrial fibrillation: (10) Chronic diastolic CHF (congestive heart failure): (11) UTI (urinary tract infection): Plan Patient had choking episode on a pill last week that daughter performed the Heimlich maneuver on her. Since then family has seen a really rapid decline in her mobility and actually even her oral intake. Family reported worsening functional status, poor intake and mild cognitive impairment In the emergency room noted to be hypercalcemic and urinalysis consistent with possible urinary tract infection. Suspect patient had's chest wall contusion from Heimlich and significant fear of eating and drinking after that event over the past week has not done much activity, has not eaten or drank her normal and subsequently rapidly declined from a physical conditioning standpoint and has hypercalcemia due to dehydration, oral supplementation and also may have developed a UTI. Hypercalcemia now resolved after treatment with calcitonin, IVF and zolendronate Ca is down to 8.9 today Still has hypokalemia and hypomagnesemia Continue cholecalciferol on discharge Discussed with Nephrology today. Reduce calcitriol to 0.5mcg daily and continue on discharge Give 2g IV mag Continue po mag Had urinary retention on 04/27/24 USS bladder noted mildly distended bladder Currently has blas Will do voiding trial tomorrow DIRECTOR OF PRODUCT MARKETING eval/recs noted Videostudy reviewed. No aspiration noted Continue bite sized diet Continue to encourage po intake Aspiration precautions Urine culture growing E coli Patient has UTI Continue IV ceftriaxone to complete 7 days PT/OT eval noted Rehab recommended CM working on placement Patient needs follow up with Hematology outpatient regarding her MGUS and SPEP labs. Updated daughter at bedside DVT ppx- SCD. No pharm agent for now due to thrombocytopenia. Monitor I spent a total of 50 minutes coordinating, documenting and providing care for this patient excluding time spent in performance of separately billed services Admission and Anticipated Discharge Date Admission Date: April 23, 2024 Subjective Patient seen and examined No new complaints Physical Exam Constitutional: + well hydrated and + thin; no acute dis tress Eyes: PERRL, conjunctivae normal, anicteric sclerae ENMT: external ear and nose normal, oropharynx normal Respiratory: normal respiratory effort, lungs clear to auscultation Cardiovascular: Rate/Rhythm: regular rate and regular rhythm Gastrointestinal (Abdomen): normal bowel sounds, soft, nontender, no hepatosplenomegaly Musculoskeletal: No pedal edema Neurologic: PERRL, EOMI, accommodation nl, no face palsy, no dysarthria Psychiatric: A+Ox3, euthymic affect Results & Data Results & Data Vital Signs (Past 12 Hours) Vital Signs Temp Pulse Resp BP Pulse Ox O2 Del Method 04/29/24 07:50 Room Air 04/29/24 07:34 37.2 C 91 H 16 137/62 92 Room Air 04/29/24 00:29 Room Air 04/28/24 22:56 Room Air Laboratory Results Abnormal lab results 04/29/24 Range/Units 06:58 RBC 3.26 L (4.20-5.40) M/uL Hgb 10.9 L (12.0-16.0) g/dl Hct 32.6 L (37.0-47.0) % RDW Std Deviation 50.4 H (36.4-46.3) fL Plt Count 69 L (130-400) K/uL Potassium 3.3 L (3.5-5.1) mmol/L Chloride 109 H (98-107) mmol/L BUN 25 H (6-23) mg/dl BUN/Creatinine Ratio 35.2 H (10-20) Magnesium 1.4 L (1.7-2.4) mg/dl
[2024-04-29] MEDS: cefTRIAXone SODIUM 1,000 MG/50 ML BAG IV SCH (14:11)
[2024-04-29 15:42] VITALS: TEMP 97.9
[2024-04-29] MEDS: FAMOTIDINE 20 MG TAB PO STA (19:45)
[2024-04-30 07:49] VITALS: PULSE 89
[2024-04-30 07:50] VITALS: O2SAT 94
[2024-04-30 08:09] LABS: BUN Creatinine Ratio 21.8 (10-20); Magnesium 1.6 mg/dl (1.7-2.4); Phosphorus 2.8 mg/dl (2.5-4.9); Potassium 3.5 mmol/L (3.5-5.1)
[2024-04-30] MEDS: CALCITRIOL 0.25 MCG CAPSULE PO SCH (08:19)
[2024-04-30] MEDS: MAGNESIUM SULFATE / D5W 1 GM/100 ML BAG IV ONE (09:39)
--- NOTE | 2024-04-30 10:45 | Discharge Summary ---
Date of Service April 30, 2024 Admission HPI Per Admitting Provider Shannon Salazar is an 88-year-old female with past medical history significant for dyslipidemia, hypertension, paroxysmal atrial fibrillation s/p left atrial appendage ligation [not on anticoagulation], chronic diastolic CHF, pulmonary hypertension, moderate tricuspid regurgitation, GERD, urge incontinence, generalized osteoarthritis, age-related osteoporosis, monoclonal gammopathy of unknown significance (MGUS), severe aortic stenosis s/p aortic valve replacement in 2017 and benign paroxysmal vertigo who presented to the ED via EMS on 04/23/24 for evaluation of generalized weakness and ambulatory dysfunction. History obtained from the patient, family at bedside and associated chart review. Family reports that the patient has been feeling progressively weaker over the past few weeks. Of note, patient had to have the Heimlich maneuver performed on her by her daughter last week as she had been choking on one of her pills. Patient has been endorsing left-sided rib pain since that incident which her daughter believes may be contributing to her progressive weakness. Patient currently lives at home with her daughter, Nicole. Her daughter works from home and is her primary manager studio. Patient typically uses a walker for ambulation however she has been having significant difficulty with falls as of lately. Patient's most recent fall was today where she was attempting to sit down and her recliner but ultimately missed the seat. Patient did not hit her head during this fall; she did, however, sustain a skin tear injury to her right forearm region. Patient offers no other complaints at this time except for the left- sided rib pain. Patient had a minor mechanical fall last week getting out of the shower but thankfully she sustained no injuries during this incident. At baseline, patient is typically fairly ambulatory with her walker and able to go up and down a flight of stairs to get to her bedroom on the second floor without any significant difficulty. No recent fevers, chills or body aches. Patient denies any chest pain or SOB. Admission Exam Per Admitting Provider General: WD/WN, vitals as above, NAD, laying down in bed, pleasant, conversing appropriately. A+Ox3 but appears tired. HEENT: Normocephalic, atraumatic. Conjunctivae normal. External ear and nose normal, oropharynx somewhat dry. Respiratory: Normal respiratory effort, lungs clear to auscultation, no wheeze/rales/rhonchi. No accessory muscle use. Cardiovascular: Regular rate, irregularly irregular rhythm, no BLE edema. Vessels: No JVD. Abdomen/GI: Normal bowel sounds, soft, nondistended, nontender to palpation in all quadrants. Extremities/Musculoskeletal: Chronic venous insufficiency changes of BLE, bandaging intact on RLE wound. Neurologic: No overt focal deficits, CN's II-XI not formally tested but appear grossly intact bilaterally. Principal Diagnosis Ambulatory dysfunction Urinary tract infection Hypercalcemia Hypomagnesemia Hypokalemia Discharge Exam Constitutional + well hydrated and + thin; no acute distress Eyes PERRL, conjunctivae normal, anicteric sclerae ENMT external ear and nose normal, oropharynx normal Respiratory normal respiratory effort, lungs clear to auscultation Cardiovascular Rate/Rhythm: regular rate and regular rhythm Gastrointestinal (Abdomen) normal bowel sounds, soft, nontender, no hepatosplenomegaly Musculoskeletal No pedal edema Neurologic PERRL, EOMI, accommodation nl, no face palsy, no dysarthria Psychiatric A+Ox3, euthymic affect Discharge Data Allergies Allergy/AdvReac Type Severity Reaction Status Date / Time simvastatin AdvReac Severe ELEVATED Verified 04/18/24 13:24 LIVER ENZYMES oxaprozin AdvReac Intermediate MAKES FEEL Verified 04/18/24 13:24 DEPRESSED Consultations 04/23/24 18:24 ED Decision to Admit Stat 04/23/24 19:52 Consult Nephrology Routine Ordered Studies 04/23/24 19:[address] [CT head/brain wo con] Urgent 04/27/24 10:00 FL video swallow Routine 04/28/24 07:20 US Renal Bladder [US renal/blad retro comp] Urgent Hospital Course (1) Hypercalcemia: (2) Chest wall contusion: (3) Dysphagia: (4) Ambulatory dysfunction: (5) Age-related cognitive decline: (6) MGUS (monoclonal gammopathy of unknown significance): (7) Hypomagnesemia: (8) Skin tear of left forearm without complication: (9) Paroxysmal atrial fibrillation: (10) Chronic diastolic CHF (congestive heart failure): (11) UTI (urinary tract infection): Plan Patient had choking episode on a pill last week that daughter performed the Heimlich maneuver on her. Since then family has seen a really rapid decline in her mobility and actually even her oral intake. Family reported worsening functional status, poor intake and mild cognitive impairment In the emergency room noted to be hypercalcemic and urinalysis consistent with possible urinary tract infection. Suspect patient had's chest wall contusion from Heimlich and significant fear of eating and drinking after that event over the past week has not done much activity, has not eaten or drank her normal and subsequently rapidly declined from a physical conditioning standpoint and has hypercalcemia due to dehydration, oral supplementation and also may have developed a UTI. Had multiple electrolyte abnormalities Hypercalcemia now resolved after treatment with calcitonin, IVF and zolendronate Home Calcium supplements discontinued Ca is down to 9 today Hypokalemia and hypophosphatemia resolved Hypomagnesemia. Mg is 1.6 today. Got IV repletion prior to dc. Continue Mag Cl 64mg TID per Nephro Nephrology was involved in management. Continue cholecalciferol and calcitriol Patient needs to follow up with her Hem/Onc for further eval/mgt of her MGUS Urinary tract infection Urine culture grew E coli Completed 7 days of antibiotics Had urinary retention on 04/27/24 USS bladder noted mildly distended bladder Briefly placed on blas. Removed before dc today Had reported an episode of choking prior to admission MINE TECHNICIAN evaluated Video study did not show aspiration Continue bite sized diet Aspiration precautions Total Time Total Time Spent Total Time Spent (In Minutes): 45 Total Time Includes: Examination of the Patient, Discharge Planning, Medication Reconciliation and Other (Updated daughter at bedside) Discharge Plan Discharge Items Patient Disposition: Transfer Inpatient Rehab Fac Reason For Visit: INJURY ALERT, FALL Discharge Diagnosis: Ambulatory dysfunction Urinary tract infection Hypercalcemia Hypomagnesemia Hypokalemia Activity: As commented below Activity Comment: As recommended by PT Non-emergency contact: Primary Care Provider and Oncologist Call non-emergency contact if: you have any medication questions and your symptoms worsen Follow-up/Referrals: Eliazar Reis MD [Primary Care Provider] - Diet: Regular Diet Texture: Easy to Chew Addtl Attending Provider Instructions: Mrs Salazar You were admitted and managed for the above listed diagnoses You are being discharged to [facility] for Rehab. Your magnesium oxide was changed to magnesium chloride Your calcium tabs were stopped and you were started on cholecalciferol and calcitriol [facility] will monitor your blood work and make adjustments as needed Please ensure follow up with Hematology/Oncology about your MGUS as we discussed. It was a pleasure taking care of you Pending Studies at Discharge: Yes (PTHrP) Stand-Alone Forms: My [facility] Skilled Items Patient informed of condition?: Yes DNR: No Discharge Level of Care: Acute rehab Communicable Disease: No Discharge Prognosis: Stable Lines: None Urinary Catheter: No Medications and DC Order Prescriptions: New magnesium chloride [Mag 64] 64 mg Tablet,Delayed Release (Dr/Ec) 64 mg PO TID Qty: 60 0RF calcitriol 0.25 mcg Capsule 0.5 mcg PO QAM Qty: 30 0RF cholecalciferol (vitamin D3) 125 mcg (5,000 unit) Tablet 125 mcg PO QAM Qty: 30 0RF Continued amiodarone 200 mg tablet 200 mg PO QAM Gemtesa 75 mg tablet 75 mg PO DAILY pravastatin 80 mg tablet 80 mg PO HS prednisolone acetate 1 % drops,suspension 1 drp OPB TID solifenacin 5 mg tablet 5 mg PO QAM acetaminophen [Tylenol Extra Strength] 500 mg Tablet 1,000 mg PO BID ascorbic acid (vitamin C) [Vitamin C] 500 mg Tablet 500 mg PO QAM ferrous sulfate [iron] 325 mg (65 mg iron) Tablet 325 mg PO Q OTHER DAY aspirin 81 mg Tablet,Delayed Release (Dr/Ec) 81 mg PO QAM potassium chloride [Klor-Con M10] 10 mEq tablet,ER particles/crystals 10 meq PO TID spironolactone 25 mg Tablet 12.5 mg PO DAILY Qty: 30 0RF ondansetron 4 mg Tablet,Disintegrating 4 mg PO Q6H PRN (Reason: Nausea/Vomiting) Systane (PF) 0.4-0.3 % Dropperette 1 drp OPHTHALMIC (EYE) QID PRN (Reason: Dry Eye(S)) fexofenadine 180 mg Tablet 180 mg PO HS metoprolol succinate 25 mg tablet extended release 24 hr 12.5 mg PO QAM docusate sodium [Colace] 100 mg Capsule 100 mg PO .INSTRUCTIONS Rx Instructions: 200mg in the AM, 100mg in the PM psyllium husk [Metamucil] 0.4 gram Capsule 0.4 g PO DAILY furosemide 20 mg tablet 20 mg PO QAM PRN (Reason: Leg Swelling/Weight Gain) famotidine 20 mg Tablet 20 mg PO ONCE PRN (Reason: Indigestion) Discontinued magnesium oxide 500 mg tablet 500 mg PO QAM calcium carbonate-vitamin D3 [Calcium 500 + D] 500 mg-10 mcg (400 unit) Tablet 1 tab PO BID calcium 500 mg Tablet 500 mg PO QAM Discharge Orders: Discharge Order (Routine); Ordered 04/30/24 Ordered By: Fadia Rose Admission Data Admit Date/Time: 04/23/24 18:43 Attending Provider: Fadia Rose I. Admit Provider: Noah Schneider Primary Care Provider: Eliazar Reis Other Providers: Noah Schneider; Abilio Howell; Antonino Earl; [facility]
[2024-04-30 12:09] VITALS: BP 180/84
[2024-05-01] MEDS ORDERED: CHOLECALCIFEROL 25 MCG (1000 UNITS) TAB PO SCH (09:00)
[2024-05-03 19:27] LABS: PTH Related Protein 14 pg/mL (11-20); Vitamin D 1,25 9 pg/mL (18-72); Vitamin D2,1,25 <8 pg/mL; Vitamin D3,1,25 9 pg/mL
== END 2024-04-30 13:08 | DRG 641 ==
LOC: ED 14:26 → EDINP 18:43 → SUATTDRO 18:43 → 2N 21:01 → 3W 04-29 00:26

== ENCOUNTER 2024-05-13 11:51 | Inpatient (IN) ==
--- OUTSIDE RECORDS SUMMARY | 2024-05-13 11:57 | External Medical Summary ---
Author Name Unknown Address Unknown Organization [id number]:[facility] [address] [place] [address] Laboratory Report Ordering Provider Test Date Status MARITZA BARNES 05/12/2024 07:18:58 Final Observation Date Value Abnormality Reference (Units ) Status BUN 05/12/2024 07:18:58 18 6-20 (mg/dL) Final Creatinine 05/12/2024 07:18:58 1.0 0.5-1.0 (mg/dL) Final Glomerular filtration rate/1.73 sq M.predicted [Volume Rate/Area] in Serum, Plasma or Blood by Creatinine-based formula (CKD-EPI) 05/12/2024 07:18:58 53 Below low normal >=60 (mL/min) Final eGFR is calculated based on the CKD-EPI 2020 equation. Sodium 05/12/2024 07:18:58 134 Below low normal 135 -146 (mmol/L) Final Potassium 05/12/2024 07:18:58 4.1 3.5-5.1 (m mol/L) Final Cl 05/12/2024 07:18:58 106 98-107 (mm ol/L) Final CO2 05/12/2024 07:18:58 20 Below low normal 22- 32 (mmol/L) Final Anion gap 05/12/2024 07:18:58 8 7-15 (mmol /L) Final Glucose 05/12/2024 07:18:58 81 70-120 (mg /dL) Final Calcium 05/12/2024 07:18:58 10.2 8.4-10.2 ( mg/dL) Final Performing Location [facility] [address] [place] [address]
--- OUTSIDE RECORDS SUMMARY | 2024-05-13 11:57 | External Medical Summary | Summary of Care ---
Author Name Unknown Organization [facility] Address [address] [address] Phone [phone] Care Team Providers Care Dramatic Coach Name Role Phone Augie Burns MD Primary Care Provider [phone] Reason for Visit * Reason Comments New Med Request Encounter Details Date Type Department Care Team (Late st Contact Info) Description 04/25/2024 Refill Family Practice [facility] [address] [place] [address] Augie Burns MD [address] [place] [address] Dyslipidemia, goal LDL below 130 Allergies Active Allergy Reactions Criticality Noted Date Comments Oxaprozin Psych complications High 06/18/2016 depression Other Reaction(s): MAKES FEEL DEPRESSED Simvastatin Other (Please comment) High 06/18/2016 Critical liver lab results Other Reaction(s): ELEVATED LIVER ENZYMES documented as of this encounter (statuses as of 04/26/2024) Medications Magnesium 500 MG Oral Tablet Take [...] or juice. 850 g 3 023 Active Polymyxin B-Trimethoprim 39097-5.1 UNIT/ML-% Ophthalmic Solution (Polytrim) INSTILL 1 DROP [...] IN THE MORNING 45 Tablet 024 Active Pravastatin Sodium 80 MG Oral TabletIndications :Dyslipidemia, goal LDL below 130 Take 1 Tablet by mouth every evening. 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 Increased risk for Hereditary Hemochromatosis. 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 Not on file Not on file [...] encounter Miscellaneous Notes * Telephone Encounter - Eleanor Zavala [facility] - 04/26/2024 5:05 AM ESTSigned Prescriptions: Disp Refills Pravastatin Sodium 80 MG Oral Tablet 90 Tab*3 Sig: Take 1 Tabletby mouth every evening.Authorizing Provider: AUGIE BURNS User: ELEANOR ZAVALA documented in this encounter Plan of Treatment Upcoming Encounters Date Type Department Care Team (Late st Contact Info) Description 07/20/2024 10:40 AM EDT Office Visit Rheumatology [facility] [address] [place] [phone] Juan Pablo Rebolledo MD [facility] [place] [address] 09/21/2024 1:20 PM EDT Office Visit Family Practice [facility] [address] [place] [address] Augie Burns MD [address] [place] [address] 12/24/2024 3:30 PM EDT Office Visit Cardiology, [facility] [address] [place] [address] Pollo Meyer MD [address] [place] [address] Health Maintenance Due Date Last Done Comments [...] o r Tdap) 02/05/2029 02/05/2019 Pneumococcal Vaccine: 50+ Years Completed 03/25/2016, 01/22/2015, 01/12/2006 Zoster Vaccines Completed 12/28/2019, 08/2019, 07/16/2014 VITAMIN D LEVEL ONCE IN A LIFETIME-USE SMARTSET# [id number] Completed 07/08/2023, 12/07/2022, 08/05/2022, Additional history exists [...] this encounter Medical Devices Implanted Type Area Traffic Personnel Supervisor Device Identifier Shelf Expiration Date Model / Serial / Lot Sut Steel 6 [id number] - [id number] Implanted:Qty : 4 on 09/09/2016 by John Olvera MD at OR [facility] [place] N/A: Chest JNJ : [employer] 05/11/2021 [id number] / / [id number] Atriclip 35mm [id number] - [id number] Implanted:Qty : 1 on 09/09/2016 by John Olvera MD at OR [facility] [place] N/A: Heart ATRICURE 08/09/2018 [id number] / / [id number] Valve Heart Aortic Epic 23mm - [id number] - [id number] Implanted:Qty : 1 on 09/09/2016 by John Olvera MD at OR [facility] [place] N/A: Aorta [facility] LESA : CARDIOVASCULAR 02/03/2020 [id number] / [id number] / Allomax Mesh 2 X 4 [id number] - [id number] - [id number] Implanted:Qty : 1 on 12/10/2020 by Jenny Brooks MD at OR [facility] [place] N/A: Abdomen CR BARD : DAVOL 03/10/2025 [id number] / [id number] / [id number] Description:PEH documented as of this encounter Visit Diagnoses Diagnosis Dyslipidemia, goal LDL below 130 Other and unspecified hyperlipidemia documented in this encounter Advance Directives * [...] and were consensually agreed upon. Care Teams Dramatic Coach Relationship Specialty Start Date End Date Augie Burns MD [address] [place] [address] PCP - General Family Medicine 09/02/20 documented as of this encounter
--- OUTSIDE RECORDS SUMMARY | 2024-05-13 11:57 | External Medical Summary ---
Author Name Unknown Address Unknown Organization [id number]:[facility] [address] [place] [address] Laboratory Report Ordering Provider Test Date Status ELISE PLASCENCIA 05/09/2024 10:02:17 Final Observation Date Value Abnormality Reference (Units ) Status BUN 05/09/2024 10:02:17 21 Above high normal 6-20 (mg/dL) Final Creatinine 05/09/2024 10:02:17 1.0 0.5-1.0 (mg/dL) Final Glomerular filtration rate/1.73 sq M.predicted [Volume Rate/Area] in Serum, Plasma or Blood by Creatinine-based formula (CKD-EPI) 05/09/2024 10:02:17 54 Below low normal >=60 (mL/min) Final eGFR is calculated based on the CKD-EPI 2020 equation. Sodium 05/09/2024 10:02:17 135 135-146 (m mol/L) Final Potassium 05/09/2024 10:02:17 4.3 3.5-5.1 (m mol/L) Final Cl 05/09/2024 10:02:17 106 98-107 (mm ol/L) Final CO2 05/09/2024 10:02:17 19 Below low normal 22- 32 (mmol/L) Final Anion gap 05/09/2024 10:02:17 10 7-15 (mmol /L) Final Glucose 05/09/2024 10:02:17 86 70-120 (mg /dL) Final Albumin 05/09/2024 10:02:17 2.6 Below low normal 3.8 -5.0 (g/dL) Final AST (Aspartate aminotransferase) 05/09/2024 10:02:17 14 10-35 (U/L) Fin al Alk Phos 05/09/2024 10:02:17 83 35-130 (U/ L) Final Bilirubin, Total 05/09/2024 10:02:17 0.6 <=1 .2 (mg/dL) Final Calcium 05/09/2024 10:02:17 11.0 Above high normal 8. 4-10.2 (mg/dL) Final Protein 05/09/2024 10:02:17 8.6 Above high normal 6. 0-8.3 (g/dL) Final ALT (Alanine aminotransferase) 05/09/2024 10:02:17 15 10-35 (U/L) Albert hardy Performing Location [facility] [address] [place] [address]
--- OUTSIDE RECORDS SUMMARY | 2024-05-13 11:57 | External Medical Summary ---
Author Name Unknown Address Unknown Organization K09:[facility] [place] [address] Laboratory Report Ordering Provider Test Date Status MARITZA BARNES 05/10/2024 06:38:15 Final Observation Date Value Abnormality Reference (Units ) Status BUN 05/10/2024 06:38:15 18 6-20 (mg/dL) Final Creatinine 05/10/2024 06:38:15 0.9 0.5-1.0 (mg/dL) Final Glomerular filtration rate/1.73 sq M.predicted [Volume Rate/Area] in Serum, Plasma or Blood by Creatinine-based formula (CKD-EPI) 05/10/2024 06:38:15 59 Below low normal >=60 (mL/min) Final eGFR is calculated based on the CKD-EPI 2020 equation. Sodium 05/10/2024 06:38:15 138 135-146 (m mol/L) Final Potassium 05/10/2024 06:38:15 3.7 3.5-5.1 (m mol/L) Final Cl 05/10/2024 06:38:15 109 Above high normal 98 -107 (mmol/L) Final CO2 05/10/2024 06:38:15 20 Below low normal 22- 32 (mmol/L) Final Anion gap 05/10/2024 06:38:15 9 7-15 (mmol /L) Final Glucose 05/10/2024 06:38:15 89 70-120 (mg /dL) Final Calcium 05/10/2024 06:38:15 10.5 Above high normal 8. 4-10.2 (mg/dL) Final Performing Location [facility] [place] [address]
--- OUTSIDE RECORDS SUMMARY | 2024-05-13 11:57 | External Medical Summary ---
Author Name Unknown Address Unknown Organization K01[facility] [place] [address] [place] [address] Laboratory Report Ordering Provider Test Date Status MARITZA BARNES 05/10/2024 06:38:15 Final Observation Date Value Abnormality Reference (Units ) Status Vitamin B12 05/10/2024 06:38:15 [phone] (pg/mL) Final Performing Location [facility] [place] [address] [place] [address]
--- OUTSIDE RECORDS SUMMARY | 2024-05-13 11:57 | External Medical Summary ---
Author Name Unknown Address Unknown Organization K01:[facility] [place] - [address] [place] [address] Laboratory Report Ordering Provider Test Date Status MOLLYMARITZA 05/10/2024 06:38:15 Final Results rechecked. Observation Date Value Abnormality Reference (Units ) Status Calcium.ionized [Moles/volume] in Serum or Plasma by Ion-selective membrane electrode (ISE) 05/10/2024 06:38:15 1.57 Above high normal 1.13-1.32 (mmol/L) Final This test was developed and its performance characteristics dtermined by [employer]. It has not been cleared or approved by the [place] Food and Drug Administration Performing Location [facility] [place] - [address] [place] [address]
--- OUTSIDE RECORDS SUMMARY | 2024-05-13 11:57 | External Medical Summary | Summary of Care ---
Author Name Unknown Organization [facility] Address [address] [place] [address] Phone [phone] Care Team Providers Care Back Roll Lathe Operator Name Role Phone Eliazar Reis MD Primary Care Provider [phone] Encounter Details Date Type Department Care Team (Late st Contact Info) Description 05/02/2024 Population Health External Data Unspecified Department Allergies Active Allergy Reactions Criticality Noted Date Comments Oxaprozin Psych complications High 06/18/2016 depression Other Reaction(s): MAKES FEEL DEPRESSED Simvastatin Other (Please comment) High 06/18/2016 Critical liver lab results Other Reaction(s): ELEVATED LIVER ENZYMES documented as of this encounter (statuses as of 05/02/2024) Medications Magnesium 500 MG Oral Tablet Take [...] juice. 850 g 3 03/11/20 23 Active Polymyxin B-Trimethoprim 52230-6.1 UNIT/ML-% Ophthalmic Solution (Polytrim) INSTILL 1 DROP [...] THE MORNING 45 Tablet 03/07/20 24 Active Pravastatin Sodium 80 MG Oral TabletIndications: Dyslipidemia, goal LDL below 130 Take 1 Tablet by mouth every evening. 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 Increased risk for Hereditary Hemochromatosis. 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 file Not on file [...] 12/10/2020 8:27 PM EDCasey Goel RN * Do you have difficulty dressing [...] Entry Date Author No 12/10/2020 8:27 PM EDCasey Goel RN documented in this encounter Plan of Treatment Upcoming Encounters Date Type Department Care Team (Late st Contact Info) Description 07/20/2024 10:40 AM EDT Office Visit Rheumatology [facility] [address] [place] [phone] Juan Pablo Rebolledo MD [facility], [place] [address] 09/21/2024 1:20 PM EDT Office Visit Family Practice [facility] [address] [place] [address] Eliazar Reis MD [address] [place] [address] 12/24/2024 3:30 PM EDT Office Visit Cardiology, [facility] [address] [address] [address] Pollo Meyer MD [address] [place] [address] Health Maintenance Due Date Last Done Comments Adult Wellness Visit 03/11/2022 03/11/2021 Depression Screening 03/11/2022 03/11/2021 Fasting Serum Ferritin Hereditary Hemochromatosis (HFE) Annual,All Ages 06/17/2022 06/17/2021 DXA Scan 11/29/2024 11/29/2022, 11/10, 11/24/2020, Additional history exists Transferrin Saturation Hereditary Hemochromatosis (HFE) Annual,All Ages 03/12/2025 03/12/2024, 06/17/2021 DTap/Tdap Vaccines (2 - Td o r Tdap) 02/05/2029 02/05/2019 Pneumococcal Vaccine: 50+ Years Completed 03/25/2016, 01/22/2015, 01/12/2006 Zoster Vaccines Completed 12/28/2019, 08/2019, 07/16/2014 VITAMIN D LEVEL ONCE IN A LIFETIME-USE SMARTSET# [id number] Completed 07/08/2023, 12/07/2022, 08/05/2022, Additional history exists COVID-19 Vaccine Completed 12/30/2023, , 11/07/2021, Additional history exists Influenza Vaccine (FLU shot) [...] this encounter Medical Devices Implanted Type Area Multifold Operator Device Identifier Shelf Expiration Date Model / Serial / Lot Shirin Davis 6 [id number] - [id number] Implanted:Qty : 4 on 09/09/2016 by John Olvera MD [place] [facility] [place]A: Chest JNJ : [employer] 05/11/2021 [id number] / / [id number] Atriclip 35mm [id number] - [id number] Implanted:Qty : 1 on 09/09/2016 by John Olvera MD at [place] [facility] [place] N/A: Heart ATRICURE 08/09/2018 [id number] / / [id number] Valve Heart Aortic Epic 23mm - [id number] - [id number] Implanted:Qty : 1 on 09/09/2016 by John Olvera MD at [place] [facility] [place] N/A: Aorta ST LESA : CARDIOVASCULAR 02/03/2020 [id number] / [id number] / Allomax Mesh 2 X 4 [id number] - [id number] - [id number] Implanted:Qty : 1 on 12/10/2020 by Jenny Brooks MD at [place] [facility] [place] N/A: Abdomen CR BARD : DAVOL 03/10/2025 [id number] / [id number] / [id number] Description:[facility] documented as of this encounter Advance Directives [...] and were consensually agreed upon. Care Teams Back Roll Lathe Operator Relationship Specialty Start Date End Date Eliazar Reis MD [address] [place] [address] PCP - General Family Medicine 09/02/20 documented as of this encounter
--- OUTSIDE RECORDS SUMMARY | 2024-05-13 11:57 | External Medical Summary ---
Author Name Unknown Address Unknown Organization [id number]:[facility] - [address] [place] [address] Laboratory Report Ordering Provider Test Date Status MARITZA BARNES 05/12/2024 07:18:58 Final Observation Date Value Abnormality Reference (Units ) Status SYNC LEUKOCYTES IN BLOOD BY AUTOMATED COUNT 05/12/2024 07:18:58 4.10 4.00-10.80 (K/uL) Final Segs 05/12/2024 07:18:58 61.5 40.0-75.0 (%) Final Lymphs % 05/12/2024 07:18:58 21.0 18.0-42.0 (%) Final Monos 05/12/2024 07:18:58 14.4 Above high normal 1.0-11.0 (%) Final Eosinophils 05/12/2024 07:18:58 2.9 0.0-6.0 (%) Final Basos 05/12/2024 07:18:58 0.2 0.0-2.0 (%) Final Absolute Segs 05/12/2024 07:18:58 2.52 1.80-7.70 (K/uL) Final Lymphs, absolute 05/12/2024 07:18:58 0.86 Below low normal 1.00-4.80 (K/ul) Final Monos, Abs 05/12/2024 07:18:58 0.59 0.00-1.10 (K/uL) Final Eos, Abs 05/12/2024 07:18:58 0.12 0.00-0.70 (K/uL) Final Basos, Abs 05/12/2024 07:18:58 0.01 0.00-0.20 (K/uL) Final Performing Location [facility] 0 - [address] [place] [address]
--- OUTSIDE RECORDS SUMMARY | 2024-05-13 11:57 | External Medical Summary ---
Author Name Unknown Address Unknown Organization [id number]:[facility] [place] - [address] [place] [address] Laboratory Report Ordering Provider Test Date Status MARITZA BARNES 05/10/2024 06:38:15 Final Observation Date Value Abnormality Reference (Units ) Status Folic Acid 05/10/2024 06:38:15 12.0 >4.5 (ng/ mL) Final Performing Location [facility] - [address] [place] [address]
--- OUTSIDE RECORDS SUMMARY | 2024-05-13 11:57 | External Medical Summary ---
Author Name Unknown Address Unknown Organization K09:[facility] [place] [address] Laboratory Report Ordering Provider Test Date Status HY,DEPAMPHILIS 05/01/2024 05:48:52 Final Observation Date Value Abnormality Reference (Units ) Status WBC, Total 05/01/2024 05:48:52 6.20 4.00-10.8 0 (K/uL) Final RBC 05/01/2024 05:48:52 3.11 3.85-5.15 (M/uL) Final Hemoglobin 05/01/2024 05:48:52 10.7 Below low normal 12 .0-15.3 (g/dL) Final HCT 05/01/2024 05:48:52 32.3 Below low normal 36. 0-45.2 (%) Final MCV 05/01/2024 05:48:52 103.9 81.5-97.5 (fL) Final MCH 05/01/2024 05:48:52 34.4 27.0-34.0 (pg) Final MCHC 05/01/2024 05:48:52 33.1 32.0-36.0 (g/dL) Final RDW 05/01/2024 05:48:52 14.0 11.5-15.5 (%) Final Platelets 05/01/2024 05:48:52 78 Below low normal 140 -400 (K/uL) Final MPV 05/01/2024 05:48:52 11.5 6.6-11.1 ( fL) Final Performing Location [facility] [place] [address]
--- OUTSIDE RECORDS SUMMARY | 2024-05-13 11:57 | External Medical Summary ---
Author Name Unknown Address Unknown Organization K0G:[facility] - [address] [place] [address] Laboratory Report Ordering Provider Test Date Status MARITZA BARNES 05/12/2024 07:18:58 Final Observation Date Value Abnormality Reference (Units ) Status WBC, Total 05/12/2024 07:18:58 4.10 4.00-10.8 0 (K/uL) Final RBC 05/12/2024 07:18:58 2.83 3.85-5.15 (M/uL) Final Hemoglobin 05/12/2024 07:18:58 9.7 Below low normal 12 .0-15.3 (g/dL) Final HCT 05/12/2024 07:18:58 29.4 Below low normal 36. 0-45.2 (%) Final MCV 05/12/2024 07:18:58 103.9 81.5-97.5 (fL) Final MCH 05/12/2024 07:18:58 34.3 27.0-34.0 (pg) Final MCHC 05/12/2024 07:18:58 33.0 32.0-36.0 (g/dL) Final RDW 05/12/2024 07:18:58 13.9 11.5-15.5 (%) Final Platelets 05/12/2024 07:18:58 92 Below low normal 140 -400 (K/uL) Final MPV 05/12/2024 07:18:58 10.5 6.6-11.1 ( fL) Final Performing Location [facility] - [address] [place] [address]
--- OUTSIDE RECORDS SUMMARY | 2024-05-13 11:57 | External Medical Summary ---
Author Name Unknown Address Unknown Organization K09:[facility] [place] [address] Laboratory Report Ordering Provider Test Date Status HY,DEPAMPHILIS 05/08/2024 06:12:31 Final Observation Date Value Abnormality Reference (Units ) Status BUN 05/08/2024 06:12:31 24 Above high normal 6-20 (mg/dL) Final Creatinine 05/08/2024 06:12:31 1.0 0.5-1.0 (mg/dL) Final Glomerular filtration rate/1.73 sq M.predicted [Volume Rate/Area] in Serum, Plasma or Blood by Creatinine-based formula (CKD-EPI) 05/08/2024 06:12:31 53 Below low normal >=60 (mL/min) Final eGFR is calculated based on the CKD-EPI 2020 equation. Sodium 05/08/2024 06:12:31 134 Below low normal 135 -146 (mmol/L) Final Potassium 05/08/2024 06:12:31 4.4 3.5-5.1 (m mol/L) Final Cl 05/08/2024 06:12:31 109 Above high normal 98 -107 (mmol/L) Final CO2 05/08/2024 06:12:31 18 Below low normal 22- 32 (mmol/L) Final Anion gap 05/08/2024 06:12:31 7 7-15 (mmol /L) Final Glucose 05/08/2024 06:12:31 92 70-120 (mg /dL) Final Calcium 05/08/2024 06:12:31 11.3 Above high normal 8. 4-10.2 (mg/dL) Final Performing Location [facility] [place] [address]
--- OUTSIDE RECORDS SUMMARY | 2024-05-13 11:57 | External Medical Summary ---
Author Name Unknown Address Unknown Organization K09:[facility] [place] [address] Laboratory Report Ordering Provider Test Date Status HY,DEPAMPHILIS 05/01/2024 05:48:52 Final Observation Date Value Abnormality Reference (Units ) Status BUN 05/01/2024 05:48:52 25 Above high normal 6-20 (mg/dL) Final Creatinine 05/01/2024 05:48:52 1.1 Above high normal 0.5-1.0 (mg/dL) Final Glomerular filtration rate/1.73 sq M.predicted [Volume Rate/Area] in Serum, Plasma or Blood by Creatinine-based formula (CKD-EPI) 05/01/2024 05:48:52 51 Below low normal >=60 (mL/min) Final eGFR is calculated based on the CKD-EPI 2020 equation. Sodium 05/01/2024 05:48:52 133 Below low normal 135 -146 (mmol/L) Final Potassium 05/01/2024 05:48:52 3.6 3.5-5.1 (m mol/L) Final Cl 05/01/2024 05:48:52 103 98-107 (mm ol/L) Final CO2 05/01/2024 05:48:52 20 Below low normal 22- 32 (mmol/L) Final Anion gap 05/01/2024 05:48:52 10 7-15 (mmol /L) Final Glucose 05/01/2024 05:48:52 92 70-120 (mg /dL) Final Calcium 05/01/2024 05:48:52 9.4 8.4-10.2 ( mg/dL) Final Performing Location [facility] [place] [address]
--- OUTSIDE RECORDS SUMMARY | 2024-05-13 11:57 | External Medical Summary ---
Author Name Unknown Address Unknown Organization K0G:[facility] [address] - [address] [place] [address] Laboratory Report Ordering Provider Test Date Status HY,DEPAMPHILIS 05/13/2024 07:27:28 Final Observation Date Value Abnormality Reference (Units ) Status Color of Urine by Auto 05/13/2024 07:27:28 Yellow Light Yellow, Yellow, Dark Yellow Final Clarity, Urine 05/13/2024 07:27:28 Clear Clear Final Glucose [Mass/volume] in Urine by Automated test strip 05/13/2024 07:27:28 Negative Negative (mg/dL) Final Bilirubin.total [Presence] in Urine by Automated test strip 05/13/2024 07:27:28 Negative Negative Final Ketones [Mass/volume] in Urine by Automated test strip 05/13/2024 07:27:28 Negative Negative (mg/dL) Final Specific gravity, Urine 05/13/2024 07:27:28 1.025 1.003-1.030 Final Hemoglobin [Presence] in Urine by Automated test strip 05/13/2024 07:27:28 Moderate Abnormal Negative Final pH, Urine 05/13/2024 07:27:28 6.0 5.0-7.5 (Units) Final Protein [Mass/volume] in Urine by Automated test strip 05/13/2024 07:27:28 100 Abnormal Negative (mg/dL) Final Urobilinogen [Mass/volume] in Urine by Automated test strip 05/13/2024 07:27:28 0.2 0.2, 1.0 (mg/dL) Final Nitrite [Presence] in Urine by Automated test strip 05/13/2024 07:27:28 Negative Negative Final Leukocyte esterase [Presence] in Urine by Automated test strip 05/13/2024 07:27:28 Negative Negative Final RBC, Urine 05/13/2024 07:27:28 10-19 Abnormal 0-2 (/HPF) Final WBC, Urine 05/13/2024 07:27:28 3-5 Abnormal 0-2 (/HPF) Final Bacteria [#/area] in Urine sediment by Microscopy high power field 05/13/2024 07:27:28 26-50 Abnormal 0-25 (/HPF) Final Calcium oxalate crystals [#/area] in Urine sediment by Microscopy high power field 05/13/2024 07:27:28 20-29 Abnormal None (/HPF) Final CULTURE, URINE - [facility] 05/13/2024 07:27:28 Final Quantitative urine culture t o be performed Performing Location [facility] [address] - [address] [place] [address]
--- OUTSIDE RECORDS SUMMARY | 2024-05-13 11:57 | External Medical Summary ---
Author Name Unknown Address Unknown Organization K09:[facility] [place] [address] Laboratory Report Ordering Provider Test Date Status MARITZA BARNES 05/10/2024 06:38:15 Final Observation Date Value Abnormality Reference (Units ) Status WBC, Total 05/10/2024 06:38:15 3.96 Below low normal 4. 00-10.80 (K/uL) Final RBC 05/10/2024 06:38:15 3.01 3.85-5.15 (M/uL) Final Hemoglobin 05/10/2024 06:38:15 10.2 Below low normal 12 .0-15.3 (g/dL) Final HCT 05/10/2024 06:38:15 31.5 Below low normal 36. 0-45.2 (%) Final MCV 05/10/2024 06:38:15 104.7 81.5-97.5 (fL) Final MCH 05/10/2024 06:38:15 33.9 27.0-34.0 (pg) Final MCHC 05/10/2024 06:38:15 32.4 32.0-36.0 (g/dL) Final RDW 05/10/2024 06:38:15 13.9 11.5-15.5 (%) Final Platelets 05/10/2024 06:38:15 94 Below low normal 140 -400 (K/uL) Final MPV 05/10/2024 06:38:15 10.5 6.6-11.1 ( fL) Final Performing Location [facility] [place] [address]
--- OUTSIDE RECORDS SUMMARY | 2024-05-13 11:57 | External Medical Summary ---
Author Name Unknown Address Unknown Organization [facility] [address] [place] [address] Laboratory Report Ordering Provider Test Date Status MARITZA BARNES 05/12/2024 07:18:58 Final Observation Date Value Abnormality Reference (Units ) Status Nucleated erythrocytes/100 leukocytes [Ratio] in Blood by Automated count 05/12/2024 07:18:58 Final Performing Location [facility] - [address] [place] [address]
--- OUTSIDE RECORDS SUMMARY | 2024-05-13 11:57 | External Medical Summary ---
Author Name Unknown Address Unknown Organization K09:[facility] [place] [address] Laboratory Report Ordering Provider Test Date Status HY,DEPAMPHILIS 05/08/2024 06:12:31 Final Observation Date Value Abnormality Reference (Units ) Status WBC, Total 05/08/2024 06:12:31 4.49 4.00-10.8 0 (K/uL) Final RBC 05/08/2024 06:12:31 2.95 3.85-5.15 (M/uL) Final Hemoglobin 05/08/2024 06:12:31 10.0 Below low normal 12 .0-15.3 (g/dL) Final HCT 05/08/2024 06:12:31 30.9 Below low normal 36. 0-45.2 (%) Final MCV 05/08/2024 06:12:31 104.7 81.5-97.5 (fL) Final MCH 05/08/2024 06:12:31 33.9 27.0-34.0 (pg) Final MCHC 05/08/2024 06:12:31 32.4 32.0-36.0 (g/dL) Final RDW 05/08/2024 06:12:31 14.1 11.5-15.5 (%) Final Platelets 05/08/2024 06:12:31 91 Below low normal 140 -400 (K/uL) Final MPV 05/08/2024 06:12:31 10.2 6.6-11.1 ( fL) Final Performing Location [facility] [place] [address]
--- OUTSIDE RECORDS SUMMARY | 2024-05-13 11:58 | External Medical Summary | Summary of Care ---
Author Name Unknown Organization [facility] Address [address] [place] [address] Phone [phone] Care Team Providers Care Clinical Operations Leader Name Role Phone Eliazar Reis MD Primary Care Provider [phone] Reason for Referral * Evaluate & Treat - Unlimited Visits (Within 10 days (routine)) - Authorized Specialty Diagnoses / Procedures Referred By Contmarta t Referred To Contact HOME CARE / Home Care Diagnoses Decreased activities of daily living (ADL) Eliazar Reis MD [address] [place] [address] Phone: tel: fax: Referral ID Status Reason Start Date Expiration Date Visits Requested Visits Authorized [id number] Authorized Specialty Services Required 04/23/2024 999 999 Question Answer Referral Priority Within 10 days (routine) Where should this appointment be scheduled? Miguelina Comments Documentation of [id number] Encounter Addendum Patient Name: Shannon Salazar I certify that this patient is under my care and that I, or a nurse practitioner or physician's hearing and speech assistant working with me, had a [id number] encounter that meets the physician ezge-np-ieee encounter requirements with this patient on: The encounter with the patient was in whole, or in part, for the following medical condition, which is the primary reason for home health care (List medical condition): ADL dysfunction I certify that, based on my findings, the following services are medically necessary home health services: Physical Therapy and OT To provide the following care/treatments: (All hospitalists not following the patient after discharge should complete this section): Primary Care Physician to follow home care plan of care after discharge: My clinical findings support the need for the above services because: Further, I certify that my clinical findings support that this patient is homebound (i.e. Absences from home require considerable and taxing effort and are for medical reasons or islam services or infrequently or of short duration when for other reason) because: Physician Signature: Date of Signature: Physician Printed Name: Eliazar Reis MD Reason for Visit * Reason Onset Date Comments Advice 04/23/2024 Encounter Details Date Type Department Care Team (Late st Contact Info) Description 04/23/2024 Telephone Family Practice [facility] [address] [place] [address] Eliazar Reis MD [address] [place] [address] Advice Allergies Active Allergy Reactions Criticality Noted Date Comments Oxaprozin Psych complications High 06/18/2016 depression Other Reaction(s): MAKES FEEL DEPRESSED Simvastatin Other (Please comment) High 06/18/2016 Critical liver lab results Other Reaction(s): ELEVATED LIVER ENZYMES documented as of this encounter (statuses as of 04/23/2024) Medications Magnesium 500 MG Oral Tablet Take 1 Tablet by mouth in the morning. 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 Increased risk for Hereditary Hemochromatosis. 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 Please assist. * Telephone Encounter - Radha Mcclellan LPN - 04/23/2024 12:57 PM EST Call rec'd from Maya at [facility] regarding pt's daughter called stating that she is requesting her mom to have PT and OT due to weakness and having difficulty moving around. Please advise and call daughterJeaneth: [phone]. MAYE Garcia DNL * Telephone Encounter - Lauren Lamar OSA - 04/23/2024 12:50 PM EST Maya from [facility] called with patient updates documented in this encounter Plan of Treatment Upcoming Encounters Date Type Department Care Team (Late st Contact Info) Description 07/20/2024 10:40 AM EDT Office Visit Rheumatology [facility] [address] [place] [phone] Juan Pablo Rebolledo MD [address] [facility] [place] [address] 09/21/2024 1:20 PM EDT Office Visit Family Practice [facility] [address] [address] Eliazar Reis MD [address] [place] [address] 12/24/2024 3:30 PM EDT Office Visit Cardiology, [facility] [address] [address] Pollo Meyer MD [address] [place] [address] Scheduled Referrals Name Type Priority Associated Diagnoses Orde r Schedule HOME HEALTH REFERRAL OP Referral Within 10 days (routine) Decreased activities of daily living (ADL) Ordered: 04/23/2024 Health Maintenance Due Date Last Done Comments [...] D LEVEL ONCE IN A LIFETIME-USE SMARTSET# [id number] Completed 07/08/2023, 12/07/2022, 08/05/2022, Additional history exists [...] this encounter Medical Devices Implanted Type Area Aircraft Time Clerk Device Identifier Shelf Expiration Date Model / Serial / Lot Shirin Davis 6 [id number] - [id number] Implanted:Qty : 4 on 09/09/2016 [place] [facility] [place]: Chest JNJ : [employer] 05/11/2021 [id number] / / [id number] Atriclip 35mm [id number] - [id number] Implanted:Qty : 1 on 09/09/2016 by [place] Olver[place] [facility] [place]: Heart ATRICURE 08/09/2018 [id number] / / [id number] Valve Heart Aortic Epic 23mm - [id number] - [id number] Implanted:Qty : 1 on 09/09/2016 by John Olver[place] [facility] [place]/A: Aorta ST LESA : CARDIOVASCULAR 02/03/2020 [id number] 00 / [id number] / Allomax Mesh 2 X 4 [id number] - [id number] - [id number] Implanted:Qty : 1 on 12/10/2020 by Jenny Brooks MD [place] [facility] [place]: Abdomen CR BARD : DAVOL 03/10/2025 [id number] / [id number] / [id number] Description:[facility] documented as of this encounter Visit Diagnoses Diagnosis Decreased activities of daily living (ADL)- Primary documented in this encounter Advance Directives * [...] and were consensually agreed upon. Care Teams Clinical Operations Leader Relationship Specialty Start Date End Date Eliazar Reis MD [address] [place] [address] PCP - General Family Medicine 09/02/20 documented as of this encounter
--- NOTE | 2024-05-13 12:14 | XRay Report ---
EXAM: Radiograph of the Chest 1 View INDICATION: Chest pain. TECHNIQUE: Frontal view of the chest. COMPARISON: 04/23/2024 FINDINGS: Lungs and pleural spaces: Shallow inspiration with prominent bronchovascular markings and minimal atelectasis in the right base. No confluent consolidation. No definite pulmonary edema. No pleural effusion or pneumothorax. Heart: Stable enlargement. Atrial clip stable. Mediastinum: Normal contour. Bones/joints: No fracture, erosion or dislocation. Soft tissues: No abnormality noted. No radiopaque foreign body noted. Upper abdomen: No abnormality noted. IMPRESSION: Pulmonary vascular congestion and mild atelectasis in the right base. ACT 112: Negative or not required by law. Electronically signed by Asuncion Mcgraw 05-13-2024 12:14 PM
--- NOTE | 2024-05-13 12:18 | Emergency Department Note ---
Impression & Plan AMS (altered mental status), Acute UTI, Acute hyponatremia ED Provider Note NAME: LIANG CRUZ AGE: 88 SEX: F : 1935 ARRIVES VIA: Ambulance INFORMANT: Patient ED PROVIDER(S): Raleigh Gomez DO CHIEF COMPLAINT: Chest pain HPI: Patient is an 88-year-old female with a past medical history of UTIs, CHF, syncope and paroxysmal A-fib who presents to the ER for chest pain prior to arrival. This resolved with aspirin and nitro. Patient does not remember any of this. Patient notes that she currently has no chest pain, arm pain, or jaw pain. History is limited as patient is confused. She denies any headache or belly pain or back pain. No other exacerbating or remitting factors. ADDITIONAL HISTORY OBTAINED: Per HPI Chronic Medical/Social Conditions Affecting Care: Per HPI PAST MEDICAL HISTORY:See Below PAST SURGICAL HISTORY:See Below FAMILY HISTORY:See Below SOCIAL HISTORY:See Below HOME MEDICATIONS:See Below ALLERGIES:See Below VITALS:See Below PHYSICAL EXAMINATION: GENERAL: Sitting up in bed, alert, well appearing, well nourished, no distress, non-toxic EYE EXAM: normal conjunctiva. PERRL and EOM's grossly intact. OROPHARYNX: no exudate, no erythema, lips, buccal mucosa, and tongue normal and mucous membranes are moist NECK: supple, no nuchal rigidity, no adenopathy, non-tender LUNGS: Clear to auscultation. Normal chest wall mechanics HEART: no murmurs, S1 normal and S2 normal ABDOMEN: abdomen soft, non-tender, normo-active bowel sounds, no masses, no rebound or guarding. BACK: Back is symmetrical on inspection and there is no deformity, no midline tenderness, no CVA tenderness. SKIN: no rashes and no bruising UPPER EXTREMITIES: upper extremities are grossly normal. LOWER EXTREMITIES: No pitting edema. NEURO EXAM: Oriented to person but not place or year or month, cranial nerves II-XII grossly intact, normal speech, no gross weakness of arms, no gross weakness of legs. No drift. Finger to nose intact. Gross sensation intact. MEDICAL DECISION MAKING: Patient is a 88-year-old female who presents ER for the above-stated complaint. Discussed with Debbie from the halfway who notes that patient has been significantly confused for the past 24 hours. IV was established and blood work was obtained. Labs show no significant leukocytosis but a mild anemia 10.3. BMP with mild hyponatremia at 133. LFTs bilirubin is unremarkable. Lipase is normal. UA does suggest a UTI with leuks whites and +3 bacteria. No epithelial cells. CT of the head was negative. Chest x-ray was unremarkable. Patient was updated bedside and discussed with the hospitalist for further evaluation management and treatment for the confusion. Patient was given IV antibiotics. Consults/Care Managements Discussions: Per [facility] Triage Nursing notes reviewed. Limited review of prior medical records performed Vital Signs: reviewed and remarkable for no significant abnormalities Differential diagnosis: Infection, dehydration, metabolic abnormality, hypo/hyperglycemia, electrolyte disturbance, anemia, hypoxia, cardiac sources, intracerebral event, toxicologic, neurologic, as well as other pathologies. ER treatment provided: See below Diagnostics interpreted by me include EKG and cardiac monitoring as listed below: -Cardiac Monitoring: An order was placed for continuous cardiac monitoring. The monitor shows a rate of 80 with sinus rhythm. -ECG: A-fib rate 79 Left axis No PVCs Right bundle branch block QTc 488 -Laboratory studies:Interpreted by me as stated above in MDM and shown below. Imaging studies: Xrays: As interpreted by me: Portable AP upright 1 view of the chest shows no focal infiltrate CTs show: CT of the head was negative per radiology Procedures:none Critical Care: None Past Med/Surg History Problem List (Updated 05/13/24 @ 16:36 by Raleigh Gomez DO) Acute hyponatremia (Acute) Acute UTI (Acute) AMS (altered mental status) (Acute) Acute confusion due to infection UTI (urinary tract infection) Suspected UTI Age-related cognitive decline Dysphagia Chest wall contusion Acute UTI (urinary tract infection) Hypomagnesemia Frequent falls Hypercalcemia (Acute) Chronic venous insufficiency (Chronic) Traumatic open wound of lower leg (Acute) Hypokalemia Generalized weakness (Acute) Acute on chronic heart failure with preserved ejection fraction (HFpEF) Elevated troponin (Acute) Hypoxia (Acute) CHF (congestive heart failure) (Acute) Nausea (Acute) Surgical wound, non healing (Acute) Venous insufficiency of both lower extremities (Chronic) Infected hematoma (Acute) Infected wound Syncope Cellulitis of leg, right DVT prophylaxis Thrombocytopenia Anemia Hematoma Laceration of lip (Acute) Ambulatory dysfunction (Acute) Acute knee pain (Acute) Fall (Acute) Paroxysmal atrial fibrillation (Acute) controlled w/ meds Dr Meyer Chronic diastolic CHF (congestive heart failure) Medical History (Updated 05/13/24 @ 16:36 by Raleigh Gomez DO) MGUS (monoclonal gammopathy of unknown significance) Seasonal allergies Incontinence of urine Nausea and vomiting after administration of anesthetic agent History of COVID-19 2020- no hosp; resolved GERD (gastroesophageal reflux disease) HLD (hyperlipidemia) HTN (hypertension) Surgical History Hx of cardiac catheterization ~2018, prior to valve replacement, no stents History of esophagogastroduodenoscopy (EGD) Hx of colonoscopy H/O: hysterectomy S/P repair of paraesophageal hernia History of total knee arthroplasty S/P aortic valve replacement with bioprosthetic valve ~2018- LINDA Guzman Family History Other Cancer Diabetes Social History Smoking Status: Former smoker Second Hand Exposure: No; Do You Dip or Chew Tobacco: No; Hx Alcohol Use: No Hx Substance Use: No Preferred Language: Mongolian Communication Ability: Effective Visual Impairment: Severely Limited Hearing Ability: Hard of Hearing [employer] Required: No Beliefs That Will Affect Care: None marital status: / Current Living Situation: Family Current Living Situation Comment: [employer] current occupational status: retired How many Children do You have: 3 How many Children do You have Comment: all able to assist with care Other Information That Helps Us Care for You: No Feels Safe at Home: Yes Safety Concerns: Feels Safe At This Time Diet: regular caffeine: Yes during the past year weight has: remained stable Assistive Devices: Walker Allergies Allergies Allergy/AdvReac Type Severity Reaction Status Date / Time simvastatin AdvReac Severe ELEVATED Verified 04/18/24 13:24 LIVER ENZYMES oxaprozin AdvReac Intermediate MAKES FEEL Verified 04/18/24 13:24 DEPRESSED Home Meds Home Medications Medication Instructions Recorded Confirmed pravastatin 80 mg tablet 80 mg PO HS 07/15/20 05/13/24 prednisolone acetate 1 % eye 1 drp OPB TID 07/15/20 05/13/24 drops,suspension acetaminophen 500 mg tablet 1,000 mg PO BID Pain 06/13/21 05/13/24 (Tylenol Extra Strength) ascorbic acid (vitamin C) 500 mg 500 mg PO QAM 06/13/21 05/13/24 tablet (Vitamin C) ferrous sulfate 325 mg (65 mg 325 mg PO Q OTHER DAY 06/13/21 05/13/24 iron) tablet (iron) fexofenadine 180 mg tablet 180 mg PO HS 07/06/21 05/13/24 peg 400-propylene glycol (PF) 0.4 1 drp ophthalmic (eye) QID PRN Dry 07/06/21 05/13/24 %-0.3 % eye drops in a dropperette Eye(S) (Systane (PF)) metoprolol succinate 25 mg 12.5 mg PO QAM 08/07/21 05/13/24 tablet,extended release 24 hr aspirin 81 mg tablet,delayed 81 mg PO QAM 09/30/22 05/13/24 release potassium chloride 10 mEq 10 meq PO TID 09/30/22 05/13/24 tablet,extended release(part/cryst) (Klor-Con M) ondansetron 4 mg disintegrating 4 mg PO Q6H PRN Nausea/Vomiting 04/25/23 05/13/24 tablet amiodarone 200 mg tablet 200 mg PO QAM 01/26/24 05/13/24 docusate sodium 100 mg capsule 100 mg PO .INSTRUCTIONS 04/23/24 05/13/24 (Colace) furosemide 20 mg tablet 20 mg PO QAM PRN Leg 04/23/24 05/13/24 Swelling/Weight Gain psyllium husk 0.4 gram capsule 0.4 g PO DAILY 04/23/24 05/13/24 (Metamucil) famotidine 20 mg tablet 20 mg PO ONCE PRN Indigestion 04/29/24 05/13/24 Previous Rx's Medication Instructions Recorded spironolactone 25 mg tablet 12.5 mg (1/2 x 25 mg) PO DAILY #30 10/05/22 tabs calcitriol 0.25 mcg capsule 0.5 mcg (2 x 0.25 mcg) PO QAM #30 04/30/24 caps cholecalciferol (vitamin D3) 125 125 mcg PO QAM #30 tabs 04/30/24 mcg (5,000 unit) tablet magnesium chloride 64 mg 64 mg PO TID #60 tabs 04/30/24 (magnesium chloride) tablet,delayed release (Mag 64) Results & Data (ED) Vital Signs Vital Signs - 24 hr 05/13/24 12:03 05/13/24 12:39 Temperature 36.8 C Temperature Source Oral Pulse Rate 72 68 Pulse Rhythm Irregular Respiratory Rate 18 Respiratory Effort / Characteristics Non-Labored Spontaneous Respiratory Depth Normal Respiratory Pattern Regular Blood Pressure 118/74 Blood Pressure Mean 88 Pulse Oximetry 93 Oxygen Delivery Method Room Air Sepsis Recent Fever Within 48 Hours No Sepsis New/Unexplained Change in Mental Status No Sepsis Action Taken by Nursing No Action Required Laboratory Data 05/13/24 12:00 05/13/24 12:00 Lab Results 05/13/24 Range/Units 12:00 WBC 5.22 (4.8-10.8) K/ul RBC 3.10 L (4.20-5.40) M/uL Hgb 10.3 L (12.0-16.0) g/dl Hct 31.1 L (37.0-47.0) % MCV 100.3 H (80.0-100.0) fL MCH 33.2 (25.0-34.0) pg MCHC 33.1 (32.0-36.0) g/dL RDW Std Deviation 51.2 H (36.4-46.3) fL RDW Coeff of Tung 14.1 (11.5-14.5) % Plt Count 100 L (130-400) K/uL MPV 10.2 (9.4-12.4) fL Immature Gran % (Auto) 0.4 % Neut % (Auto) 70.5 % Lymph % (Auto) 15.7 % [place] % (Auto) 10.5 % Eos % (Auto) 1.9 % Baso % (Auto) 1.0 % Neut # (Auto) 3.68 (1.40-6.50) K/uL Lymph # (Auto) 0.82 L (1.20-3.40) K/uL [place] # (Auto) 0.55 (0.11-0.59) K/uL Eos # (Auto) 0.10 (0.00-0.50) K/uL Baso # (Auto) 0.05 (0.00-0.20) K/uL Immature Gran # (Auto) 0.02 (0.01-0.20) K/uL Sodium 133 L (136-145) mmol/L Potassium 4.5 (3.5-5.1) mmol/L Chloride 107 (98-107) mmol/L Carbon Dioxide 23 (21-32) mmol/L Anion Gap 3 (3-11) BUN 20 (6-23) mg/dl Creatinine 1.14 (0.6-1.2) mg/dl Est Cr Clr Drug Dosing Not Reportable eGFR 46.88 BUN/Creatinine Ratio 17.5 (10-20) Glucose 91 (70-99(Fasting)) mg/dl Calcium 10.3 (8.6-10.3) mg/dl Total Bilirubin 0.5 (0.2-1.0) mg/dl AST 12 L (13-39) U/L ALT 12 (7-52) U/L Alkaline Phosphatase 66 (34-104) U/L Troponin I High Sens 11.1 (0-14) pg/ml Total Protein 9.0 H (6.0-8.3) gm/dl Albumin 2.5 L (3.4-5.0) gm/dl Globulin 6.5 H (2.5-4.0) gm/dl Albumin/Globulin Ratio 0.4 L (0.9-2) Lipase 22 (11-82) U/L Urine Color Yellow Urine Appearance Cloudy A (Clear) Urine pH 5.5 (4.5-7.5) Ur Specific [place] 1.022 (1.000-1.030) Urine Protein 2+ H (Negative) Urine Glucose (UA) Negative (Negative) Urine Ketones Negative (Negative) Urine Blood 1+ H (Negative) Urine Nitrite Negative (Negative) Urine Bilirubin Negative (Negative) Urine Urobilinogen Negative (Negative) Ur Leukocyte Esterase 2+ H (Negative) Urine WBC (Auto) >50 H (0-5) /hpf Urine RBC (Auto) >20 H (0-2) /hpf U Hyaline Cast (Auto) 3-5 H (0-2) /lpf U Epithel Cells (Auto) 0-2 (0-2) /hpf Urine Bacteria (Auto) 3+ H (None Seen) Granular Casts Present A (None Prsent) /lpf Urine Yeast Present A (None Prsent) Administered Medications Docusate Sodium (Docusate Sodium 100 Mg Cap) 100 mg PO BID [facility] Stop: 06/12/24 14:45 Last Admin: 05/13/24 16:18 Dose: 100 mg Documented By: ALEX Ferrous Sulfate (Ferrous Sulfate 325 Mg Tab) 325 mg PO Q2D [facility] Stop: 06/12/24 14:49 Last Admin: 05/13/24 16:16 Dose: 325 mg Documented By: ALEX Sodium Chloride (Nss) 1,000 mls @ 80 mls/hr IV .[id number] STEPHANIE Stop: 05/14/24 02:14 Last Admin: 05/13/24 16:14 Dose: 80 mls/hr Documented By: ALEX Magnesium Chloride (Magnesium Chloride W/Calcium 64mg Delayed Rel Tab) 64 mg PO TID [facility] Stop: 06/12/24 14:45 Last Admin: 05/13/24 16:16 Dose: 64 mg Documented By: ALEX Miscellaneous (Order Awaiting Action - Systane Opth) 1 each N/A QS [facility] Stop: 06/12/24 15:59 Last Admin: 05/13/24 16:11 Dose: Not Given Documented By: ALEX Prednisolone Acetate (Prednisolone Acetate 1% Op Susp 5 Ml Btl) 1 drops OPB TID [facility] Stop: 06/12/24 14:45 Last Admin: 05/13/24 16:15 Dose: 1 drops Documented By: ALEX Discontinued Medications Ceftriaxone Sodium (Rocephin) 2,000 mg in 50 mls @ 100 mls/hr IV NOW STA Stop: 05/13/24 13:36 Last Infusion: 05/13/24 15:03 Dose: Infused Documented By: Admin: 05/13/24 13:16 Dose: 100 mls/hr Documented By: JO ANN Imaging Data Radiologist's Impression: Chest X-Ray 05/13/24 11:58 EXAM: Radiograph of the Chest 1 View INDICATION: Chest pain. TECHNIQUE: Frontal view of the chest. COMPARISON: 04/23/2024 FINDINGS: Lungs and pleural spaces: Shallow inspiration with prominent bronchovascular markings and minimal atelectasis in the right base. No confluent consolidation. No definite pulmonary edema. No pleural effusion or pneumothorax. Heart: Stable enlargement. Atrial clip stable. Mediastinum: Normal contour. Bones/joints: No fracture, erosion or dislocation. Soft tissues: No abnormality noted. No radiopaque foreign body noted. Upper abdomen: No abnormality noted. IMPRESSION: Pulmonary vascular congestion and mild atelectasis in the right base. ACT 112: Negative or not required by law. Electronically signed by Asuncion Mcgraw 05-13-2024 12:[address] 05/13/24 12:24 EXAM: CT Head Without Intravenous Contrast INDICATION: Altered mental status. TECHNIQUE: Axial computed tomography images of the head/brain without intravenous contrast. Sagittal and/or coronal reformats are provided. Sagittal and coronal reformatted images were created and reviewed. This CT exam was performed using one or more of the following dose reduction techniques: automated exposure control, adjustment of the mA and/or kV according to patient size, and/or use of iterative reconstruction technique. COMPARISON: 04/23/2024 FINDINGS: Limitations: None. Brain and extra-axial spaces: There is age appropriate cortical atrophy and chronic ischemic periventricular white matter hypodensity. No acute infarct, hemorrhage or mass noted. Bones/joints: No acute changes. Soft tissues: No significant abnormality noted. Vasculature: There is dense atherosclerosis of the intracranial vertebral, carotid and basilar arteries. Sinuses: No layering fluid in the visualized portions of the paranasal sinuses. Mastoid air cells: No mastoid effusion. Orbits: No significant abnormality noted. IMPRESSION: Cerebral atrophy. No acute changes. ACT 112: Negative or not required by law. Electronically signed by Asuncion Mcgraw 05-13-2024 13:02 PM Discharge Plan Visit Data Chief Complaint: Chest Pain Stated Complaint: CHEST PAIN ED Provider: Raleigh Gomez Discharge Problem: AMS (altered mental status), Acute UTI, Acute hyponatremia Patient Disposition: Admitted As Inpatient Discharge Instructions Interventions: ED Discharge Assessment Last Done: 05/13/24 14:22 Discharge Problem: AMS (altered mental status) Qualifiers: Altered mental status type: unspecified Qualified Code(s): R41.82 - Altered mental status, unspecified
[2024-05-13 12:23] LABS: Appearance Urine Cloudy (Clear); Bacteria Urine Automated 3+ (None Seen); Bilirubin Urine Negative (Negative); Blood Urine 1+ (Negative); Color Urine Yellow; Epithelial Cell Urine Auto 0-2 /hpf (0-2); Glucose Urine UA Negative (Negative); Granular Casts Urine Present /lpf (None Prsent); Ketones Urine Negative (Negative); Leukocyte Esterase Urine 2+ (Negative); Nitrite Urine Negative (Negative); Protein Urine 2+ (Negative); RBC Urine Automated >20 /hpf (0-2); Specific Gravity Urine 1.022 (1.000-1.030); Urobilinogen Urine Negative (Negative); WBC Urine Automated >50 /hpf (0-5); pH Urine 5.5 (4.5-7.5)
[2024-05-13 12:47] LABS: Basophils # (auto) 0.05 K/uL (0.00-0.20); Eosinophils % (auto) 1.9 %; Hematocrit (blood only) 31.1 % (37.0-47.0); Hemoglobin 10.3 g/dl (12.0-16.0); Immature Granulocytes # (auto) 0.02 K/uL (0.01-0.20); Immature Granulocytes % (auto) 0.4 %; Lymphocytes # (auto) 0.82 K/uL (1.20-3.40); Lymphocytes % (auto) 15.7 %; Mean Corpuscular Hemoglobin 33.2 pg (25.0-34.0); Mean Corpuscular Hgb Conc 33.1 g/dL (32.0-36.0); Mean Corpuscular Volume 100.3 fL (80.0-100.0); Mean Platelet Volume 10.2 fL (9.4-12.4); Monocytes # (auto) 0.55 K/uL (0.11-0.59); Monocytes % (auto) 10.5 %; Neutrophils # (auto) 3.68 K/uL (1.40-6.50); Neutrophils % (auto) 70.5 %; Platelet Count 100 K/uL (130-400); RDW Coefficient of Variation 14.1 % (11.5-14.5); RDW Standard Deviation 51.2 fL (36.4-46.3); White Blood Count 5.22 K/ul (4.8-10.8)
[2024-05-13 13:00] LABS: Alanine Aminotransferase 12 U/L (7-52); Albumin Globulin Ratio 0.4 (0.9-2); Albumin Level 2.5 gm/dl (3.4-5.0); Alkaline Phosphatase 66 U/L (34-104); Anion Gap 3 (3-11); Aspartate Aminotransferase 12 U/L (13-39); BUN Creatinine Ratio 17.5 (10-20); Bilirubin,Total 0.5 mg/dl (0.2-1.0); Blood Urea Nitrogen 20 mg/dl (6-23); Calcium 10.3 mg/dl (8.6-10.3); Carbon Dioxide 23 mmol/L (21-32); Chloride 107 mmol/L (98-107); Globulin 6.5 gm/dl (2.5-4.0); Glucose 91 mg/dl (70-99(Fasting)); Lipase 22 U/L (11-82); Potassium 4.5 mmol/L (3.5-5.1); Sodium 133 mmol/L (136-145)
--- NOTE | 2024-05-13 13:03 | CT Scan Report ---
EXAM: CT Head Without Intravenous Contrast INDICATION: Altered mental status. TECHNIQUE: Axial computed tomography images of the head/brain without intravenous contrast. Sagittal and/or coronal reformats are provided. Sagittal and coronal reformatted images were created and reviewed. This CT exam was performed using one or more of the following dose reduction techniques: automated exposure control, adjustment of the mA and/or kV according to patient size, and/or use of iterative reconstruction technique. COMPARISON: 04/23/2024 FINDINGS: Limitations: None. Brain and extra-axial spaces: There is age appropriate cortical atrophy and chronic ischemic periventricular white matter hypodensity. No acute infarct, hemorrhage or mass noted. Bones/joints: No acute changes. Soft tissues: No significant abnormality noted. Vasculature: There is dense atherosclerosis of the intracranial vertebral, carotid and basilar arteries. Sinuses: No layering fluid in the visualized portions of the paranasal sinuses. Mastoid air cells: No mastoid effusion. Orbits: No significant abnormality noted. IMPRESSION: Cerebral atrophy. No acute changes. ACT 112: Negative or not required by law. Electronically signed by Asuncion Mcgraw 05-13-2024 13:02 PM
[2024-05-13 13:06] LABS: Troponin I High Sensitivity 11.1 pg/ml (0-14)
[2024-05-13] MEDS: cefTRIAXone SODIUM 2,000 MG/50 ML BAG IV STA (13:16)
--- NOTE | 2024-05-13 14:04 | History & Physical Report ---
Date of Service May 13, 2024 Assessment & Plan (1) Acute UTI (urinary tract infection): Plan: Presented with acute confusion noted to have UTI on dipstick Seems to be catheter associated UTI Urine has been sent for culture and sensitivity Started on intravenous ceftriaxone will be continued Chest pain Informed about chest pain by the [facility] Patient denies any chest pain during examination EKG did not show any ST elevation Troponin level was not elevated and that was at 11.1 Doubt any ACS but will repeat another troponin after about 6 hours (2) Acute confusion due to infection: Plan: She has noted to be acutely confused since last night Her confusion seems to be improved in the emergency room during my examination Confusion seems to be secondary to infection and she will be observed in the hospital (3) Paroxysmal atrial fibrillation: Plan: History of paroxysmal atrial fibrillation Her rate is controlled Has not been on any anticoagulation due to frequent falls and bleeding risk (4) Chronic diastolic CHF (congestive heart failure): Plan: She was on small dose of Lasix and Spironolactone Lasix and Spirolactone are on Hold now She has a history of hypercalcemia and she will be given cautious amount of intravenous fluid for dry mouth and dehydration clinically She will likely need to restart the diuretics (5) Hypercalcemia: Plan: Her calcium level is high at 13.4 on admission on 04/23/2024. Her calcium level is 10.3 as of 05/13/2024 Will try to avoid dehydration and will give small amount of normal saline for rehydration (6) Venous insufficiency of both lower extremities: (7) HTN (hypertension): Plan: Blood pressure is on the lower side and continue current medication (8) HLD (hyperlipidemia): Plan: Continue statin (9) Incontinence of urine: Plan: She was putting a catheter during her last admission She has no catheter associated UTI Will try to change/discontinue catheter during examination if possible Other significant medical conditions Remains stable DVT prophylaxis Subcu heparin CODE STATUS Full The case was discussed with the daughter in presence of the patient in emergency room History of Present Illness Chief Complaint: Acute confusion and questionable chest pain since last night Primary Care Provider: Eliazar Reis MD She is an 88 years old female significant past medical history of hypertension, paroxysmal atrial fibrillation status post left atrial appendage is ligation not on any anticoagulation, chronic diastolic heart failure, pulmonary hypertension, GERD, arch incontinence, monoclonal gammopathy of unknown origin and severe aortic stenosis status post aortic valve replacement and other medical condition as mentioned below apparently [facility] following a recent hospitalization for hypercalcemia and other electrolyte abnormalities. She also had a Pardo catheter secondary to incontinence/obstruction. She was noted to be acutely confused since last night and also noted to have chest pain as complained by the patient and he was sent in to ER for further evaluation. Her chest pain resolved with aspirin and sublingual nitro and her troponin was unremarkable and so is the EKG. She was noted to have UTI on UA examination and had confusion resolved during my examination in the emergency room in presence of the daughter. She has very thirsty and looked dry on examination. She was started with intravenous ceftriaxone and was given cautious amount of IV fluid and was admitted to medical telemetry unit for continuation of care. Allergies Allergy/AdvReac Type Severity Reaction Status Date / Time simvastatin AdvReac Severe ELEVATED Verified 04/18/24 13:24 LIVER ENZYMES oxaprozin AdvReac Intermediate MAKES FEEL Verified 04/18/24 13:24 DEPRESSED Home Medications Medication Instructions Recorded Confirmed Type pravastatin 80 mg tablet 80 mg PO HS 07/15/20 05/13/24 History prednisolone acetate 1 % eye 1 drp OPB TID 07/15/20 05/13/24 History drops,suspension acetaminophen 500 mg tablet 1,000 mg PO BID Pain 06/13/21 05/13/24 History (Tylenol Extra Strength) ascorbic acid (vitamin C) 500 mg 500 mg PO QAM 06/13/21 05/13/24 History tablet (Vitamin C) ferrous sulfate 325 mg (65 mg 325 mg PO Q OTHER DAY 06/13/21 05/13/24 History iron) tablet (iron) fexofenadine 180 mg tablet 180 mg PO HS 07/06/21 05/13/24 History peg 400-propylene glycol (PF) 0.4 1 drp ophthalmic (eye) QID PRN Dry 07/06/21 05/13/24 History %-0.3 % eye drops in a dropperette Eye(S) (Systane (PF)) metoprolol succinate 25 mg 12.5 mg PO QAM 08/07/21 05/13/24 History tablet,extended release 24 hr aspirin 81 mg tablet,delayed 81 mg PO QAM 09/30/22 05/13/24 History release potassium chloride 10 mEq 10 meq PO TID 09/30/22 05/13/24 History tablet,extended release(part/cryst) (Klor-Con M) spironolactone 25 mg tablet 12.5 mg (1/2 x 25 mg) PO DAILY #30 10/05/22 05/13/24 Rx tabs ondansetron 4 mg disintegrating 4 mg PO Q6H PRN Nausea/Vomiting 04/25/23 05/13/24 History tablet amiodarone 200 mg tablet 200 mg PO QAM 01/26/24 05/13/24 History docusate sodium 100 mg capsule 100 mg PO .INSTRUCTIONS 04/23/24 05/13/24 History (Colace) furosemide 20 mg tablet 20 mg PO QAM PRN Leg 04/23/24 05/13/24 History Swelling/Weight Gain psyllium husk 0.4 gram capsule 0.4 g PO DAILY 04/23/24 05/13/24 History (Metamucil) famotidine 20 mg tablet 20 mg PO ONCE PRN Indigestion 04/29/24 05/13/24 History calcitriol 0.25 mcg capsule 0.5 mcg (2 x 0.25 mcg) PO QAM #30 04/30/24 05/13/24 Rx caps cholecalciferol (vitamin D3) 125 125 mcg PO QAM #30 tabs 04/30/24 05/13/24 Rx mcg (5,000 unit) tablet magnesium chloride 64 mg 64 mg PO TID #60 tabs 04/30/24 05/13/24 Rx (magnesium chloride) tablet,delayed release (Mag 64) Past Med/Surg History Problem List (Updated 05/13/24 @ 13:56 by Elisa Doll MD) Acute confusion due to infection UTI (urinary tract infection) Suspected UTI Age-related cognitive decline Dysphagia Chest wall contusion Acute UTI (urinary tract infection) Hypomagnesemia Frequent falls Hypercalcemia (Acute) Chronic venous insufficiency (Chronic) Traumatic open wound of lower leg (Acute) Hypokalemia Generalized weakness (Acute) Acute on chronic heart failure with preserved ejection fraction (HFpEF) Elevated troponin (Acute) Hypoxia (Acute) CHF (congestive heart failure) (Acute) Nausea (Acute) Surgical wound, non healing (Acute) Venous insufficiency of both lower extremities (Chronic) Infected hematoma (Acute) Infected wound Syncope Cellulitis of leg, right DVT prophylaxis Thrombocytopenia Anemia Hematoma Laceration of lip (Acute) Ambulatory dysfunction (Acute) Acute knee pain (Acute) Fall (Acute) Paroxysmal atrial fibrillation (Acute) controlled w/ meds Dr Meyer Chronic diastolic CHF (congestive heart failure) Medical History (Updated 05/13/24 @ 13:56 by Elisa Doll MD) MGUS (monoclonal gammopathy of unknown significance) Seasonal allergies Incontinence of urine Nausea and vomiting after administration of anesthetic agent History of COVID-19 2020- no hosp; resolved GERD (gastroesophageal reflux disease) HLD (hyperlipidemia) HTN (hypertension) Surgical History Hx of cardiac catheterization ~2018, prior to valve replacement, no stents History of esophagogastroduodenoscopy (EGD) Hx of colonoscopy H/O: hysterectomy S/P repair of paraesophageal hernia History of total knee arthroplasty S/P aortic valve replacement with bioprosthetic valve ~2018- [facility] [place] Family History Other Cancer Diabetes Social History Smoking Status: Unknown if ever smoked Second Hand Exposure: No; Do You Dip or Chew Tobacco: No; Hx Alcohol Use: No Hx Substance Use: No Preferred Language: Lithuanian Communication Ability: Effective Visual Impairment: Severely Limited Hearing Ability: Hard of Hearing Junior Brand Manager Required: No Beliefs That Will Affect Care: None marital status: / Current Living Situation: Family Current Living Situation Comment: Usually lives in [place] with daughter. Currently visiting other daughter current occupational status: retired How many Children do You have: 3 How many Children do You have Comment: all able to assist with care Feels Safe at Home: Yes Diet: regular caffeine: Yes during the past year weight has: remained stable Assistive Devices: Lift Chair and Walker Review of Systems Review of Systems: All systems reviewed and unremarkable except as noted below Physical Exam Physical Exam: Lying in bed without any acute distress. She was feeling thirsty and was having difficulty speaking because of dryness of mouth. Constitutional: + ill appearing and average body habitus Eyes: PERRL, conjunctivae normal, anicteric sclerae ENMT: external ear and nose normal, oropharynx normal Neck: trachea midline, no thyromegaly Respiratory: no respiratory distress Auscultation: lungs clear to auscultation bilaterally Cardiovascular: Rate/Rhythm: regular rate and regular rhythm; not tachycardic Heart Sounds: normal S1, normal S2 and + murmur (2/6 ESM over precordium and aortic area) Extremities: no edema Has generalized bruising involving the extremities Gastrointestinal (Abdomen): Inspection/Auscultation: normal bowel sounds; abdomen not distended Percussion/Palpation: abdomen soft; abdomen nontender Neurologic: normal touch/pain/proprioception and moves all extremities; no focal motor deficits Alert, awake and oriented x 3. No focal neurodeficit . Lymphatic: no cervical or axillary lymphadenopathy Results & Data Results & Data Vital Signs (Past 12 Hours) Vital Signs Temp Pulse Resp BP Pulse Ox O2 Del Method 05/13/24 12:39 68 05/13/24 12:03 36.8 C 72 18 118/74 93 Room Air Laboratory Results Short CBC 05/13/24 Range/Units 12:00 WBC 5.22 (4.8-10.8) K/ul Hgb 10.3 L (12.0-16.0) g/dl Hct 31.1 L (37.0-47.0) % Plt Count 100 L (130-400) K/uL BMP 05/13/24 12:00 Sodium 133 L Potassium 4.5 Chloride 107 Carbon Dioxide 23 BUN 20 Creatinine 1.14 Glucose 91 Calcium 10.3 Liver Function 05/13/24 Range/Units 12:00 Total Bilirubin 0.5 (0.2-1.0) mg/dl AST 12 L (13-39) U/L ALT 12 (7-52) U/L Alkaline Phosphatase 66 (34-104) U/L Albumin 2.5 L (3.4-5.0) gm/dl Urine 05/13/24 Range/Units 12:00 Urine Color Yellow Urine Appearance Cloudy A (Clear) Urine pH 5.5 (4.5-7.5) Ur Specific [place] 1.022 (1.000-1.030) Urine Protein 2+ H (Negative) Urine Glucose (UA) Negative (Negative) Medications Administered Current Inpatient Medications Heparin Sodium (Porcine) (Heparin Sod 5,000 Unit/0.5 Ml Vial) 5,000 units SQ Q12 STEPHANIE Stop: 06/12/24 20:59 Ceftriaxone Sodium (Rocephin) 2,000 mg in 50 mls @ 100 mls/hr IV Q24H STEPHANIE Stop: 05/24/24 12:59 Sodium Chloride (Nss) 1,000 mls @ 80 mls/hr IV .[id number] STEPHANIE Stop: 05/15/24 03:14 Code Status & VTE Plan VTE Prophylaxis Plan VTE Prophylaxis will be ordered: Yes
--- NOTE | 2024-05-13 14:13 | Electrocardiogram Report ---
Test Reason : Blood Pressure : */* mmHG Vent. Rate : 79 BPM Atrial Rate : * BPM P-R Int : * ms QRS Dur : 170 ms QT Int : 426 ms P-R-T Axes : * -56 62 degrees QTcB Int : 488 ms Atrial fibrillation Right bundle branch block Left anterior fascicular block Minimal voltage criteria for LVH, may be normal variant ( R in aVL ) Abnormal ECG When compared with ECG of 24-Apr-2024 05:12, QT has shortened Confirmed by Eliazar Gordon ([id number]) on 05/13/2024 2:13:21 PM Referred By: Confirmed By: Eliazar Gordon
[2024-05-13] MEDS ORDERED: FAMOTIDINE 20 MG TAB PO PRN (14:46)
[2024-05-13] MEDS: SODIUM CHLORIDE 0.9% 1,000 ML IV SCH (16:14)
[2024-05-13] MEDS: prednisoLONE acetate 1% OP SUSP 5 ML BTL OPB SCH (16:15)
[2024-05-13] MEDS: MAGNESIUM CHLORIDE W/CALCIUM 64MG DELAYED REL TAB PO SCH (16:16)
[2024-05-13] MEDS: FERROUS SULFATE 325 MG TAB PO SCH (16:16)
[2024-05-13] MEDS: DOCUSATE SODIUM 100 MG CAP PO SCH (16:18)
[2024-05-13] MEDS: ACETAMINOPHEN 500 MG TAB PO SCH (20:16)
[2024-05-13] MEDS: HEPARIN SOD 5,000 UNIT/0.5 ML VIAL SQ SCH (20:16)
[2024-05-13] MEDS: PRAVASTATIN SOD 40 MG TAB PO SCH (20:17)
[2024-05-13] MEDS: FEXOFENADINE HCL 180 MG TAB PO SCH (20:18)
[2024-05-14 07:45] LABS: Basophils # (auto) 0.04 K/uL (0.00-0.20); Basophils % (auto) 0.8 %; Eosinophils # (auto) 0.15 K/uL (0.00-0.50); Eosinophils % (auto) 3.2 %; Hematocrit (blood only) 29.4 % (37.0-47.0); Hemoglobin 9.9 g/dl (12.0-16.0); Immature Granulocytes # (auto) 0.02 K/uL (0.01-0.20); Immature Granulocytes % (auto) 0.4 %; Lymphocytes # (auto) 0.65 K/uL (1.20-3.40); Lymphocytes % (auto) 13.8 %; Mean Corpuscular Hemoglobin 33.9 pg (25.0-34.0); Mean Corpuscular Hgb Conc 33.7 g/dL (32.0-36.0); Mean Corpuscular Volume 100.7 fL (80.0-100.0); Mean Platelet Volume 10.4 fL (9.4-12.4); Monocytes # (auto) 0.41 K/uL (0.11-0.59); Monocytes % (auto) 8.7 %; Neutrophils # (auto) 3.45 K/uL (1.40-6.50); Neutrophils % (auto) 73.1 %; Platelet Count 90 K/uL (130-400); RDW Coefficient of Variation 14.1 % (11.5-14.5); RDW Standard Deviation 51.8 fL (36.4-46.3); Red Blood Count 2.92 M/uL (4.20-5.40); White Blood Count 4.72 K/ul (4.8-10.8)
[2024-05-14 07:46] VITALS: RESP 18
[2024-05-14] MEDS: PSYLLIUM or GUAR GUM FIBER 4GM PACKET PO SCH (07:49)
[2024-05-14] MEDS: VIBEGRON 75 MG TAB PO SCH (07:49)
[2024-05-14] MEDS: METOPROLOL SUCC 25MG EXT REL TAB PO SCH (07:49)
[2024-05-14] MEDS: ASPIRIN 81 MG ECTAB PO SCH (07:50)
[2024-05-14] MEDS: CHOLECALCIFEROL 125 MCG (5,000 UNITS) TAB PO SCH (07:50)
[2024-05-14] MEDS: AMIODARONE 200 MG TAB PO SCH (07:50)
[2024-05-14] MEDS: OXYBUTYNIN CHLORIDE XL 5 MG TABCR PO SCH (07:50)
[2024-05-14] MEDS: CALCITRIOL 0.25 MCG CAPSULE PO SCH (07:50)
[2024-05-14] MEDS: ASCORBIC ACID 500 MG TAB PO SCH (07:51)
[2024-05-14 08:04] LABS: Anion Gap 4 (3-11); Blood Urea Nitrogen 19 mg/dl (6-23); Calcium 9.5 mg/dl (8.6-10.3); Carbon Dioxide 20 mmol/L (21-32); Chloride 109 mmol/L (98-107); Glucose 79 mg/dl (70-99(Fasting)); Magnesium 1.8 mg/dl (1.7-2.4); Potassium 3.9 mmol/L (3.5-5.1); Sodium 133 mmol/L (136-145)
[2024-05-14] MEDS ORDERED: VANCOMYCIN CONSULT ACTIVE PRN (09:33)
[2024-05-14] MEDS: VANCOMYCIN HCL 1,500 MG in SODIUM CHLORIDE 0.9% 500 ML IV ONE (10:53)
[2024-05-14] MEDS: Patient's HEIGHT &/or WEIGHT Needed STA (10:55)
[2024-05-14 11:10] VITALS: PULSE 71; TEMP 97.9; O2SAT 96
[2024-05-14] MEDS ORDERED: cefTRIAXone SODIUM 2,000 MG/50 ML BAG IV SCH (13:00)
--- NOTE | 2024-05-14 13:12 | Discharge Summary ---
<Statement entered by Antonino Earl, - 05/14/24 15:29> I have seen and examined the patient and have discussed the case with the advance practice provider. I have reviewed the advanced practitioner's documentation, and I agree with, and take responsibility for that plan of care. Patient awake and seems to be back to her baseline mentation. Could accurately tell me she is originally from [place]. Can tell me she is in [place] and in the hospital. Communication with case management and [facility] escrow representative. Able to manage treatment of her UTI at [facility] Worked with [facility] and pharmacy to review antibiogram and most appropriate treatment for Enterococcus UTI GI Discharge plan as outlined below I spent a total of 20 minutes coordinating, documenting, and providing care for this patient excluding time spent by another provider/QHP. Discharge Summary Date of Service May 14, 2024 Principal Dx & Hospital Course #1 = Principal Diagnosis (1) Chest pain: (2) Acute confusion due to infection: (3) Catheter-associated urinary tract infection: Plan Shannon Salazar is an 88y/o F with PMHx significant for HLD, HTN, PAF s/p left atrial appendage ligation [not on anticoagulation], chronic diastolic CHF, pulmonary HTN, moderate TR, GERD, urge incontinence, generalized osteoarthritis, age-related osteoporosis, monoclonal gammopathy of unknown significance (MGUS), severe s/p AV replacement in 2017, paraesophageal hernia s/p surgical repair, SUZETTE and benign paroxysmal vertigo who presented to the ED via EMS from [facility] on 05/13/24 with complaints of chest pain and acute confusion. Chest Pain - ACS Ruled-Out: Noted to have midsternal chest pain at [facility]. Received po 324mg ASA and 1 spray of sublingual nitroglycerin en route to the ED via EMS. Chest pain had completely resolved by the time the patient was evaluated in the ED. EKG in the ED unremarkable - no evidence of ST changes. High-sensitivity troponins x 2 were negative. Telemetry noted atrial fibrillation but was otherwise benign. CXR reviewed and without any evidence of consolidation. Patient without any further incidences of chest pain or chest discomfort during admission. Ultimately ACS ruled-out. Acute Confusion 2/2 CAUTI Pardo Catheter RFID STRATEGIST, H/O Urinary Retention: Noted to be acutely confused beginning the night prior to admission. Head CT ne gative. Suspect 2/2 CAUTI given UA with evidence of 3+ bacteria, >50 WBC and 2+ LE. Pardo catheter in place RFID STRATEGIST. Appears patient had issues with urinary retention during her last admission (04/23/24-04/30/24) prompting Pardo catheter placement but it was removed prior to discharge. Patient's daughter, Cristina, mentioned that she had to have a Pardo catheter reinserted at [facility] - unsure of exact reasoning however suspect likely 2/2 urinary retention. Will ultimately need to undergo voiding trial at [facility]; Pardo catheter was exchanged prior to discharge. Was initially started on IV Rocephin however urine culture came back growing Enterococcus faecium therefore she was transitioned to IV vancomycin. Case discussed with inpatient pharmacy. Transitioning to 5-day course of po linezolid on discharge pending her urine culture sensitivities. Mentation status significantly improved, appears to be back at baseline. Discharge plans discussed with the patient's daughter, Cristina, at bedside. Chronic Diastolic CHF, Aortic Stenosis S/P AVR in 2017: Resting echocardiogram from 11/2023 noted moderately increased concentric LV wall thickness, normal LV wall motion, LVEF = 55-59%, severe biatrial enlargement, severe mitral annular calcification, moderately calcified mitral valve leaflets, moderate mitral regurgitation, severe tricuspid regurgitation and mildly elevated pulmonary artery systolic pressure of 45-50mmHg. Remained euvolemic on exam during admission. Can resume home diuretics including scheduled spironolactone and PRN Lasix on discharge. Paroxysmal AFib S/P Left Atrial Appendage Ligation, HTN: Atrial fibrillation noted on telemetry monitoring, remained rate-controlled. Not on anticoagulation s/p left atrial appendage ligation procedure 2/2 frequent falls and bleeding risk. Can continue home metoprolol succinate and amiodarone on discharge. MGUS, H/O Hypercalcemia: Patient's daughter reports she was diagnosed with MGUS back in 2019 or 2020; she follows with [facility] hematology/oncology. Noted to have hypercalcemia last admission. Calcium WNL during this admission and at time of discharge (9.5); can continue calcitriol on discharge. 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 Other Chronic Medical Conditions: * Chronic BLE Venous Insufficiency - Follows with [facility]. * HLD - Continue statin. Urge Incontinence - Continue Gemtesa, Ditropan XL. SZUETTE - Hgb stable, baseline Hgb ~9-11. Continue iron supplement. PCP: Eliazar Reis MD Disposition: Patient is being discharged back to [facility] in stable condition for further rehabilitation services. Patient seen in collaboration with Dr. Earl. Please see addendum. I spent a total of 55 minutes coordinating, documenting, and providing care for this patient excluding time spent in the performance of separately billed services or time spent by another provider/QHP. This included personally reviewing all current laboratories and imaging studies, medical reconciliation, outpatient chart review and discussion with specialists. This chart was completed in part utilizing Speech Voice Recognition Software. Grammatical errors, random word insertions, pronoun errors, and incomplete sentences are an occasional consequence of this system due to software limitations, ambient noise, and hardware issues. Any formal questions or concerns about the content, text, or information contained within the body of this dictation should be directly addressed to the provider for clarification. Notes For Next Care Provider Will need PCP f/u appointment within the next 1-2 weeks. Pardo catheter exchanged on 05/14/24. Will need voiding trial. Urine culture grew Enterococcus faecium --> sensitivities still pending. Medication Changes From Visit 600mg po linezolid BID x 5 days beginning tomorrow morning (05/15/24). Admission HPI Per Admitting Provider She is an 88 years old female significant past medical history of hypertension, paroxysmal atrial fibrillation status post left atrial appendage is ligation not on any anticoagulation, chronic diastolic heart failure, pulmonary hypertension, GERD, arch incontinence, monoclonal gammopathy of unknown origin and severe aortic stenosis status post aortic valve replacement and other medical condition as mentioned below apparently was in [facility] following a recent hospitalization for hypercalcemia and other electrolyte abnormalities. She also had a Pardo catheter secondary to incontinence/obstruction. She was noted to be acutely confused since last night and also noted to have chest pain as complained by the patient and he was sent in to ER for further evaluation. Her chest pain resolved with aspirin and sublingual nitro and her troponin was unremarkable and so is the EKG. She was noted to have UTI on UA examination and had confusion resolved during my examination in the emergency room in presence of the daughter. She has very thirsty and looked dry on examination. She was started with intravenous ceftriaxone and was given cautious amount of IV fluid and was admitted to medical telemetry unit for continuation of care. Admission Exam Per Admitting Provider Physical Exam: Lying in bed without any acute distress. She was feeling thirsty and was having difficulty speaking because of dryness of mouth. Constitutional: + ill appearing and average body habitus Eyes: PERRL, conjunctivae normal, anicteric sclerae ENMT: external ear and nose normal, oropharynx normal Neck: trachea midline, no thyromegaly Respiratory: no respiratory distress Auscultation: lungs clear to auscultation bilaterally Cardiovascular: Rate/Rhythm: regular rate and regular rhythm; not tachycardic Heart Sounds: normal S1, normal S2 and + murmur (2/6 ESM over precordium and aortic area) Extremities: no edema Has generalized bruising involving the extremities Gastrointestinal (Abdomen): Inspection/Auscultation: normal bowel sounds; abdomen not distended Percussion/Palpation: abdomen soft; abdomen nontender Neurologic: normal touch/pain/proprioception and moves all extremities; no focal motor deficits Alert, awake and oriented x 3. No focal neurodeficit . Lymphatic: no cervical or axillary lymphadenopathy Discharge Exam General: WD/WN, NAD, sitting up in bed, pleasant, conversing appropriately. Daughter at bedside. A+Ox2. HEENT: Normocephalic, atraumatic. Conjunctivae normal. External ear and nose normal, oropharynx mildly dry. Respiratory: Normal respiratory effort, lungs clear to auscultation bilaterally. No accessory muscle use. Cardiovascular: Regular rate, irregularly irregular rhythm, + murmur, no BLE edema. Vessels: No JVD. Abdomen/GI: Normal bowel sounds, soft, nondistended, nontender to palpation in all quadrants. Extremities/Musculoskeletal: Chronic venous insufficiency changes of BLE, able to move all extremities. Neurologic: No overt focal deficits, CN's II-XI not formally tested but appear grossly intact bilaterally. Updated Medication List Medication Instructions Recorded Confirmed Type pravastatin 80 mg tablet 80 mg PO HS 07/15/20 05/13/24 History prednisolone acetate 1 % eye 1 drp OPB TID 07/15/20 05/13/24 History drops,suspension acetaminophen 500 mg tablet 1,000 mg PO BID Pain 06/13/21 05/13/24 History (Tylenol Extra Strength) ascorbic acid (vitamin C) 500 mg 500 mg PO QAM 06/13/21 05/13/24 History tablet (Vitamin C) ferrous sulfate 325 mg (65 mg 325 mg PO Q OTHER DAY 06/13/21 05/13/24 History iron) tablet (iron) fexofenadine 180 mg tablet 180 mg PO HS 07/06/21 05/13/24 History peg 400-propylene glycol (PF) 0.4 1 drp ophthalmic (eye) QID PRN Dry 07/06/21 05/13/24 History %-0.3 % eye drops in a dropperette Eye(S) (Systane (PF)) metoprolol succinate 25 mg 12.5 mg PO QAM 08/07/21 05/13/24 History tablet,extended release 24 hr aspirin 81 mg tablet,delayed 81 mg PO QAM 09/30/22 05/13/24 History release potassium chloride 10 mEq 10 meq PO TID 09/30/22 05/13/24 History tablet,extended release(part/cryst) (Klor-Con M) spironolactone 25 mg tablet 12.5 mg (1/2 x 25 mg) PO DAILY #30 10/05/22 05/13/24 Rx tabs ondansetron 4 mg disintegrating 4 mg PO Q6H PRN Nausea/Vomiting 04/25/23 05/13/24 History tablet amiodarone 200 mg tablet 200 mg PO QAM 01/26/24 05/13/24 History docusate sodium 100 mg capsule 100 mg PO .INSTRUCTIONS 04/23/24 05/13/24 History (Colace) furosemide 20 mg tablet 20 mg PO QAM PRN Leg 04/23/24 05/13/24 History Swelling/Weight Gain psyllium husk 0.4 gram capsule 0.4 g PO DAILY 04/23/24 05/13/24 History (Metamucil) famotidine 20 mg tablet 20 mg PO ONCE PRN Indigestion 04/29/24 05/13/24 History calcitriol 0.25 mcg capsule 0.5 mcg (2 x 0.25 mcg) PO QAM #30 04/30/24 05/13/24 Rx caps cholecalciferol (vitamin D3) 125 125 mcg PO QAM #30 tabs 04/30/24 05/13/24 Rx mcg (5,000 unit) tablet magnesium chloride 64 mg 64 mg PO TID #60 tabs 04/30/24 05/13/24 Rx (magnesium chloride) tablet,delayed release (Mag 64) lactobacillus combination no.4 3 3,000 mmu cells PO DAILY #30 caps 05/14/24 Rx billion cell capsule (Probiotic) linezolid 600 mg tablet 600 mg PO BID 5 days #10 tabs 05/14/24 Rx Hospital Stay Data Consultations 05/13/24 13:46 ED Decision to Admit Stat Diagnostic Imagining Performed 05/13/24 12:24 CT head/brain wo con Stat Discharge Instructions Given to Patient (Per Discharging Provider) jaimee Ortega were admitted to [facility] with chest pain and confusion. You underwent further cardiac evaluation including EKG and cardiac enzyme testing which all thankfully came back unremarkable. You were however found to have an acute urinary tract infection (UTI) which is likely what triggered your confusion. UTIs can sometimes cause confusion, especially in older adults. We began treating your UTI with an IV antibiotic and your confusion improved. You are being discharged on the following ORAL antibiotic to complete a full course of treatment for your UTI: Linezolid 600mg TWICE a day x 5 DAYS. You will begin taking this medication starting TOMORROW morning (Tuesday05/15/2024). P maraase take this medication as prescribed and in its entirety! It is strongly recommended that you take a daily probiotic while on antibiotics in order to prevent GI upset, such as nausea/vomiting or bloating/diarrhea. Probiotics can help replenish the "good" bacteria in your digestive system, potentially reducing the chances of these side effects. Your Pardo catheter was exchanged while you were admitted. You are being discharged back to [facility] for further rehabilitation services. You will undergo a voiding trial at [facility] to see if your Pardo catheter can be removed. A voiding trial is a test that is often performed to check if someone is able to urinate (void) normally after a period of urinary retention or after certain treatments or procedures, like a catheter being removed. During a voiding trial, a person will try to urinate on their own after having their catheter removed (if they had one) or after treatment. If the person can successfully void and there is minimal residual urine, the trial is considered successful. Please take good care of yourself! It has been a pleasure taking care of you. If you have any questions regarding your recent hospitalization please contact [facility] and request Miguelina Otero @ [phone]. Total Time Total Time Spent Total Time Spent (In Minutes): 55
[2024-05-14] MEDS ORDERED: ARTIFICIAL TEARS OP PRN (13:57)
[2024-05-14 14:51] VITALS: BP 129/77
--- NOTE | 2024-05-15 13:15 | Coding Query ---
CODING QUERY To promote full compliance with coding requirements relating to patient care, provider participation is requested in all cases of calender operator helper uncertainty. Please assist us with the question(s) below: Coding Question(s): The medical record reflects the following clinical evidence: Clinical Indicators: Pt admitted with "acute confusion due to infection". Treated for acute UTI Risk Factor(s): AMS/acute confusion, UTI Treatment: Head CT, IV hydration, IV ceftriaxone, urine cultures Physician's Response(s): ___Metabolic Encephalopathy _X__Unable to determine Thank you Emi ESCOBEDO
== END 2024-05-14 16:36 | DRG 699 ==
LOC: ED 11:51 → 2N 13:43 → SUATTDRO 13:43 → 2N 14:22

== ENCOUNTER 2024-06-19 09:24 | Inpatient (IN) ==
--- NOTE | 2024-06-19 09:34 | Emergency Department Note ---
Impression & Plan Altered mental status, Left lower lobe pneumonia, Catheter-associated urinary tract infection, Anemia, Thrombocytopenia ED Provider Note NAME: LIANG CRUZ AGE: 88 SEX: F : 1935 ARRIVES VIA: Ambulance INFORMANT: Patient, ED PROVIDER(S): Art Braun MD CHIEF COMPLAINT: Vomiting MEDICAL DECISION MAKING: Patient presents from [place] due to concern for vomiting. Patient reportedly with increased confusion. Sepsis protocols initiated reviewed the patient's most recent urine culture shows intermittently resistant Enterobacter. Cefepime chosen as initial antibiotics along with 1 L of IV fluids. Patient with coarse sounding cough chest x-ray and bio fire obtained. Patient's blood work shows a normal white count hemoglobin of 10.6 platelet count of 93,000 which the patient has had thrombocytopenia in the past. Patient's kidney function is unremarkable. Mild hyponatremia 134. Pro-Benny of 0.7. The patient's urinalysis does show blood and signs of infection. Positive for influenza A. MRSA negative. BioFire otherwise negative with exception for the flu. Patient does have concern for left lower lobe pneumonia. Flagyl added due to concerns for vomiting. Gas distention of the stomach noted. The patient has not had any further vomiting. No significant abdominal distention at this time. Given the patient's likely UTI and associated pneumonia with worsening confusion to believe the patient would benefit from admission at this time. Family had reported that the patient's catheter has been in for approximate month in duration. This was exchanged for a new Pardo. I did speak the on-call hospital service Davy Elder PA-C and Dr. Schneider. Of note patient A-fib not anticoagulated but prior history of left atrial appendage ligation procedures completed secondary to frequent falls and bleeding risk. Discussion w/ other healthcare providers: Basil Elder PA-C and Dr. Schneider Prior /Outside records reviewed: None Differential diagnosis: Infection, dehydration, metabolic abnormality, hypo/hyperglycemia, electrolyte imbalance, anemia, UTI, pneumonia, thyroid dysfunction among others were considered. Diagnostics, as interpreted by me: ECG: A-fib, rate of 71, wide QRS, left axis deviation, right bundle branch block pattern. No obvious STEMI. Cardiac monitoring: An order was placed for continuous cardiac monitoring. The monitor shows a rate of 75 with irregularly irregular rhythm. Patient was placed on pulse oximetry Medical decision rules: None Imaging studies: I informally interpreted the patient's chest x-ray shows concern for left lower lobe pneumonia with formal report to follow. HPI: Patient presents to [facility] due to concern for confusion. The patient reports that her sister in August and stated that her oldest daughter . The patient states that she "broke down." Thereafter. Nursing did report that she had presented the same story unsure as to the true veracity and had initially said her sister and subsequently her daughter had . Patient reports that she thinks she is vomit approximate 20 times today. Patient with audible cough at bedside and states that it has been wet. Patient reported with increasing confusion and does have a Pardo catheter in place. PAST MEDICAL HISTORY: See Below PAST SURGICAL HISTORY: See Below SOCIAL HISTORY: See Below HOME MEDICATIONS: See Below ALLERGIES: See Below VITALS: See Below PHYSICAL EXAMINATION: GENERAL: Ill in appearance but nontoxic. EYE EXAM: Normal conjunctiva. PERRL, no anisocoria and EOM's grossly intact w/o pain. OROPHARYNX: Dry mucus membranes, grossly normal dentition. NECK: Trachea midline, no stridor. Supple, no nuchal rigidity, no adenopathy, non-tender. No signs of meningismus. FROM of the neck with good chin to chest and neck extension. LUNGS: Clear to auscultation. Normal chest wall mechanics. HEART: Regular irregular, no MRG. ABDOMEN: Abdomen soft, non-tender, no masses, no rebound or guarding. BACK: No CVA TTP. SKIN: No rashes and no bruising. UPPER EXTREMITIES: Upper extremities are grossly normal. LOWER EXTREMITIES: Grossly normal, no edema. NEURO EXAM: A&O x3, cranial nerves II-XII grossly intact, normal speech, moves all 4 extremities. Past Med/Surg History Problem List (Updated 06/19/24 @ 17:32 by Art Braun MD) Thrombocytopenia (Acute) Anemia (Acute) Catheter-associated urinary tract infection (Acute) Left lower lobe pneumonia (Acute) Altered mental status (Acute) Prolonged QT interval History of hypercalcemia MGUS (monoclonal gammopathy of unknown significance) Chronic anemia Venous stasis dermatitis of both lower extremities Wound of sacral region History of urinary retention Pardo catheter in place prior to arrival Pneumonia involving left lung UTI (urinary tract infection) (Acute) Influenza A (Acute) Catheter-associated urinary tract infection Acute hyponatremia (Acute) Acute UTI (Acute) AMS (altered mental status) (Acute) Acute confusion due to infection Suspected UTI Age-related cognitive decline Dysphagia Chest wall contusion Hypomagnesemia Frequent falls Hypercalcemia (Acute) Chronic venous insufficiency (Chronic) Traumatic open wound of lower leg (Acute) Hypokalemia Generalized weakness (Acute) Acute on chronic heart failure with preserved ejection fraction (HFpEF) Elevated troponin (Acute) Hypoxia (Acute) CHF (congestive heart failure) (Acute) Nausea (Acute) Surgical wound, non healing (Acute) Venous insufficiency of both lower extremities (Chronic) Infected hematoma (Acute) Infected wound Syncope Cellulitis of leg, right DVT prophylaxis Thrombocytopenia Anemia Hematoma Laceration of lip (Acute) Ambulatory dysfunction (Acute) Acute knee pain (Acute) Fall (Acute) Paroxysmal atrial fibrillation (Acute) controlled w/ meds Dr Meyer Chronic diastolic CHF (congestive heart failure) Medical History Chest pain MGUS (monoclonal gammopathy of unknown significance) Seasonal allergies Incontinence of urine Nausea and vomiting after administration of anesthetic agent History of COVID-19 2020- no hosp; resolved GERD (gastroesophageal reflux disease) Surgical History Hx of cardiac catheterization ~2018, prior to valve replacement, no stents History of esophagogastroduodenoscopy (EGD) Hx of colonoscopy H/O: hysterectomy S/P repair of paraesophageal hernia History of total knee arthroplasty S/P aortic valve replacement with bioprosthetic valve ~2018- [facility] Family History Other Cancer Diabetes Social History Smoking Status: Never smoker Second Hand Exposure: No; Do You Dip or Chew Tobacco: No; Hx Alcohol Use: No Hx Substance Use: No Preferred Language: Romanian Communication Ability: Effective Visual Impairment: Severely Limited Hearing Ability: Hard of Hearing Hourly Shift Manager Required: No Beliefs That Will Affect Care: None marital status: / Current Living Situation: Family Current Living Situation Comment: [facility] current occupational status: retired How many Children do You have: 3 How many Children do You have Comment: all able to assist with care Feels Safe at Home: Yes Diet: regular caffeine: Yes during the past year weight has: remained stable Assistive Devices: Walker Allergies Allergies Allergy/AdvReac Type Severity Reaction Status Date / Time simvastatin AdvReac Severe ELEVATED Verified 06/19/24 10:41 LIVER ENZYMES oxaprozin AdvReac Intermediate MAKES FEEL Verified 06/19/24 10:41 DEPRESSED Home Meds Home Medications Medication Instructions Recorded Confirmed pravastatin 80 mg tablet 80 mg PO HS 07/15/20 06/19/24 prednisolone acetate 1 % eye 1 drp OPB DAILY 07/15/20 06/19/24 drops,suspension acetaminophen 500 mg tablet 1,000 mg PO BID PRN Pain 06/13/21 06/19/24 (Tylenol Extra Strength) ascorbic acid (vitamin C) 500 mg 500 mg PO QAM 06/13/21 06/19/24 tablet (Vitamin C) fexofenadine 180 mg tablet 180 mg PO HS 07/06/21 06/19/24 metoprolol succinate 25 mg 12.5 mg PO QAM 08/07/21 06/19/24 tablet,extended release 24 hr aspirin 81 mg tablet,delayed 81 mg PO QAM 09/30/22 06/19/24 release potassium chloride 10 mEq 10 meq PO TID 09/30/22 06/19/24 tablet,extended release(part/cryst) (Klor-Con M) ondansetron 4 mg disintegrating 4 mg PO Q6H PRN Nausea/Vomiting 04/25/23 06/19/24 tablet amiodarone 200 mg tablet 200 mg PO QAM 01/26/24 06/19/24 docusate sodium 100 mg capsule See Rx Instructions .Route .COMPLEX 04/23/24 06/19/24 (Colace) furosemide 20 mg tablet 20 mg PO DAILY PRN Leg 04/23/24 06/19/24 Swelling/Weight Gain psyllium husk 0.4 gram capsule 0.4 g PO DAILY 04/23/24 06/19/24 (Metamucil) famotidine 20 mg tablet 20 mg PO DAILY PRN Indigestion 04/29/24 06/19/24 calcium carbonate 500 mg PO DAILY 06/19/24 06/19/24 carboxymethylcellulose sodium 1 % 1 drp ophthalmic (eye) BID PRN Dry 06/19/24 06/19/24 eye liquid gel drops Eyes magnesium oxide 500 mg capsule 500 mg PO DAILY 06/19/24 06/19/24 mirtazapine 15 mg tablet 15 mg PO HS 06/19/24 06/19/24 Previous Rx's Medication Instructions Recorded spironolactone 25 mg tablet 12.5 mg (1/2 x 25 mg) PO DAILY #30 10/05/22 tabs Results & Data (ED) Vital Signs Vital Signs - 24 hr 06/19/24 09:28 06/19/24 09:39 06/19/24 09:45 Temperature Temperature Source Pulse Rate 69 71 Pulse Rate from SpO2 Sensor 80 76 Respiratory Rate 24 20 Respiratory Effort / Characteristics Respiratory Depth Blood Pressure 133/83 Blood Pressure Mean 114 Blood Pressure Position Pulse Oximetry 97 Oxygen Delivery Method Sepsis Recent Fever Within 48 Hours Sepsis New/Unexplained Change in Mental Status Sepsis Action Taken by Nursing 06/19/24 09:54 06/19/24 09:57 06/19/24 09:58 Temperature Temperature Source Pulse Rate 84 Pulse Rate from SpO2 Sensor 76 Respiratory Rate 19 Respiratory Effort / Characteristics Respiratory Depth Blood Pressure 136/91 Blood Pressure Mean 105 Blood Pressure Position Pulse Oximetry 95 95 Oxygen Delivery Method Room Air Sepsis Recent Fever Within 48 Hours Sepsis New/Unexplained Change in Mental Status Sepsis Action Taken by Nursing 06/19/24 09:59 06/19/24 10:00 06/19/24 10:09 Temperature 36.6 C Temperature Source Oral Pulse Rate 73 71 Pulse Rate from SpO2 Sensor Respiratory Rate 20 21 Respiratory Effort / Characteristics Non-Labored Spontaneous Respiratory Depth Normal Blood Pressure 133/83 141/78 H Blood Pressure Mean 99 113 Blood Pressure Position Lying Pulse Oximetry 94 91 Oxygen Delivery Method Room Air Sepsis Recent Fever Within 48 Hours No Sepsis New/Unexplained Change in Mental Status N/A Sepsis Action Taken by Nursing No Action Required 06/19/24 10:13 06/19/24 10:15 06/19/24 10:21 Temperature Temperature Source Pulse Rate 71 85 83 Pulse Rate from SpO2 Sensor 78 87 Respiratory Rate 20 14 Respiratory Effort / Characteristics Respiratory Depth Blood Pressure Blood Pressure Mean Blood Pressure Position Pulse Oximetry 92 94 Oxygen Delivery Method Sepsis Recent Fever Within 48 Hours Sepsis New/Unexplained Change in Mental Status Sepsis Action Taken by Nursing 06/19/24 10:30 06/19/24 10:30 06/19/24 10:30 Temperature Temperature Source Pulse Rate 68 Pulse Rate from SpO2 Sensor 75 Respiratory Rate 18 Respiratory Effort / Characteristics Respiratory Depth Blood Pressure 124/63 124/63 Blood Pressure Mean 80 80 Blood Pressure Position Pulse Oximetry 91 Oxygen Delivery Method Sepsis Recent Fever Within 48 Hours Sepsis New/Unexplained Change in Mental Status Sepsis Action Taken by Nursing 06/19/24 10:48 06/19/24 11:01 06/19/24 11:01 Temperature Temperature Source Pulse Rate 64 Pulse Rate from SpO2 Sensor 67 Respiratory Rate 17 Respiratory Effort / Characteristics Respiratory Depth Blood Pressure 142/76 H 142/76 H Blood Pressure Mean 79 79 Blood Pressure Position Pulse Oximetry 96 Oxygen Delivery Method Sepsis Recent Fever Within 48 Hours Sepsis New/Unexplained Change in Mental Status Sepsis Action Taken by Nursing 06/19/24 11:01 06/19/24 11:01 06/19/24 11:06 Temperature Temperature Source Pulse Rate 74 Pulse Rate from SpO2 Sensor Respiratory Rate 18 Respiratory Effort / Characteristics Respiratory Depth Blood Pressure 142/76 H 142/76 H Blood Pressure Mean 79 79 Blood Pressure Position Pulse Oximetry 95 Oxygen Delivery Method Sepsis Recent Fever Within 48 Hours Sepsis New/Unexplained Change in Mental Status Sepsis Action Taken by Nursing 06/19/24 11:24 06/19/24 11:30 06/19/24 11:33 Temperature Temperature Source Pulse Rate 67 63 Pulse Rate from SpO2 Sensor 74 65 Respiratory Rate 16 17 Respiratory Effort / Characteristics Respiratory Depth Blood Pressure 143/62 H Blood Pressure Mean 86 Blood Pressure Position Pulse Oximetry 95 95 Oxygen Delivery Method Sepsis Recent Fever Within 48 Hours Sepsis New/Unexplained Change in Mental Status Sepsis Action Taken by Nursing 06/19/24 11:45 06/19/24 11:57 06/19/24 12:02 Temperature Temperature Source Pulse Rate 87 65 Pulse Rate from SpO2 Sensor Respiratory Rate 24 17 Respiratory Effort / Characteristics Respiratory Depth Blood Pressure 146/85 H Blood Pressure Mean 93 Blood Pressure Position Pulse Oximetry 94 Oxygen Delivery Method Sepsis Recent Fever Within 48 Hours Sepsis New/Unexplained Change in Mental Status Sepsis Action Taken by Nursing 06/19/24 12:09 06/19/24 12:18 06/19/24 12:21 Temperature Temperature Source Pulse Rate 72 69 72 Pulse Rate from SpO2 Sensor Respiratory Rate 17 24 14 Respiratory Effort / Characteristics Respiratory Depth Blood Pressure Blood Pressure Mean Blood Pressure Position Pulse Oximetry Oxygen Delivery Method Sepsis Recent Fever Within 48 Hours Sepsis New/Unexplained Change in Mental Status Sepsis Action Taken by Half-Way Medications Current Medication List: was personally reviewed by oh Laboratory Data Attestation: I reviewed the patient's lab results. 06/19/24 09:55 06/19/24 09:55 Lab Results 06/19/24 06/19/24 06/19/24 Range/Units 09:40 09:55 10:30 WBC 7.43 (4.8-10.8) K/ul RBC 3.18 L (4.20-5.40) M/uL Hgb 10.6 L (12.0-16.0) g/dl Hct 31.5 L (37.0-47.0) % MCV 99.1 (80.0-100.0) fL MCH 33.3 (25.0-34.0) pg MCHC 33.7 (32.0-36.0) g/dL RDW Std Deviation 54.4 H (36.4-46.3) fL RDW Coeff of Tung 15.2 H (11.5-14.5) % Plt Count 93 L (130-400) K/uL MPV 11.5 (9.4-12.4) fL Immature Gran % (Auto) 0.7 % Neut % (Auto) 82.9 % Lymph % (Auto) 8.2 % Trinity % (Auto) 7.0 % Eos % (Auto) 0.9 % Baso % (Auto) 0.3 % Neut # (Auto) 6.16 (1.40-6.50) K/uL Lymph # (Auto) 0.61 L (1.20-3.40) K/uL Trinity # (Auto) 0.52 (0.11-0.59) K/uL Eos # (Auto) 0.07 (0.00-0.50) K/uL Baso # (Auto) 0.02 (0.00-0.20) K/uL Immature Gran # (Auto) 0.05 (0.01-0.20) K/uL Sodium 134 L (136-145) mmol/L Potassium 4.2 (3.5-5.1) mmol/L Chloride 109 H (98-107) mmol/L Carbon Dioxide 21 (21-32) mmol/L Anion Gap 4 (3-11) BUN 15 (6-23) mg/dl Creatinine 0.86 (0.6-1.2) mg/dl Est Cr Clr Drug Dosing 35.4 ml/min eGFR 65.75 BUN/Creatinine Ratio 17.4 (10-20) Glucose 90 (70-99(Fasting)) mg/dl Lactate 1.2 (0.4-2.0) mmol/L Calcium 8.6 (8.6-10.3) mg/dl Magnesium 1.8 (1.7-2.4) mg/dl Total Bilirubin 0.6 (0.2-1.0) mg/dl Direct Bilirubin TNP 0.0 AST 15 (13-39) U/L ALT 10 (7-52) U/L Alkaline Phosphatase 74 (34-104) U/L Troponin I High Sens 10.3 (0-14) pg/ml Total Protein 9.2 H (6.0-8.3) gm/dl Albumin 2.7 L (3.4-5.0) gm/dl Procalcitonin Cancelled 0.73 H Urine Color Yellow Urine Appearance Turbid A (Clear) Urine pH 5.5 (4.5-7.5) Ur Specific Seminary 1.015 (1.000-1.030) Urine Protein 2+ H (Negative) Urine Glucose (UA) Negative (Negative) Urine Ketones Negative (Negative) Urine Blood 2+ H (Negative) Urine Nitrite Negative (Negative) Urine Bilirubin Negative (Negative) Urine Urobilinogen Negative (Negative) Ur Leukocyte Esterase 3+ H (Negative) Urine WBC (Auto) >50 H (0-5) /hpf Urine RBC (Auto) 3-5 H (0-2) /hpf U Hyaline Cast (Auto) 0-2 (0-2) /lpf U Epithel Cells (Auto) 0-2 (0-2) /hpf Urine Bacteria (Auto) 4+ H (None Seen) Nasal Influ A H1 2009 PCR DETECTED A (NotDetected) Nasal Screen MRSA (PCR) (Negative) Adenovirus (PCR) Not Detected (NotDetected) B. pertussis DNA (PCR) Not Detected (NotDetected) B.parapertussis DNA PCR Not Detected (NotDetected) C. pneumoniae DNA (PCR) Not Detected (NotDetected) Coronavirus OC43 (PCR) Not Detected (NotDetected) Coronavirus HKU1 (PCR) Not Detected (NotDetected) Coronavirus 229E (PCR) Not Detected (NotDetected) SARS-CoV-2 (PCR) Not Detected (NotDetected) Coronavirus NL63 (PCR) Not Detected (NotDetected) Human Metapneumovir PCR Not Detected (NotDetected) Influenza Type B (PCR) Not Detected (NotDetected) M. pneumoniae (PCR) Not Detected (NotDetected) Parainfluenza 1 (PCR) Not Detected (NotDetected) Parainfluenza 2 (PCR) Not Detected (NotDetected) Parainfluenza 3 (PCR) Not Detected (NotDetected) Parainfluenza 4 (PCR) Not Detected (NotDetected) RSV (PCR) Not Detected (NotDetected) Entero/Rhino (PCR) Not Detected (NotDetected) 06/19/24 Range/Units 12:15 WBC (4.8-10.8) K/ul RBC (4.20-5.40) M/uL Hgb (12.0-16.0) g/dl Hct (37.0-47.0) % MCV (80.0-100.0) fL MCH (25.0-34.0) pg MCHC (32.0-36.0) g/dL RDW Std Deviation (36.4-46.3) fL RDW Coeff of Tung (11.5-14.5) % Plt Count (130-400) K/uL MPV (9.4-12.4) fL Immature Gran % (Auto) % Neut % (Auto) % Lymph % (Auto) % Trinity % (Auto) % Eos % (Auto) % Baso % (Auto) % Neut # (Auto) (1.40-6.50) K/uL Lymph # (Auto) (1.20-3.40) K/uL Trinity # (Auto) (0.11-0.59) K/uL Eos # (Auto) (0.00-0.50) K/uL Baso # (Auto) (0.00-0.20) K/uL Immature Gran # (Auto) (0.01-0.20) K/uL Sodium (136-145) mmol/L Potassium (3.5-5.1) mmol/L Chloride (98-107) mmol/L Carbon Dioxide (21-32) mmol/L Anion Gap (3-11) BUN (6-23) mg/dl Creatinine (0.6-1.2) mg/dl Est Cr Clr Drug Dosing ml/min eGFR BUN/Creatinine Ratio (10-20) Glucose (70-99(Fasting)) mg/dl Lactate (0.4-2.0) mmol/L Calcium (8.6-10.3) mg/dl Magnesium (1.7-2.4) mg/dl Total Bilirubin (0.2-1.0) mg/dl Direct Bilirubin AST (13-39) U/L ALT (7-52) U/L Alkaline Phosphatase (34-104) U/L Troponin I High Sens (0-14) pg/ml Total Protein (6.0-8.3) gm/dl Albumin (3.4-5.0) gm/dl Procalcitonin Urine Color Urine Appearance (Clear) Urine pH (4.5-7.5) Ur Specific Seminary (1.000-1.030) Urine Protein (Negative) Urine Glucose (UA) (Negative) Urine Ketones (Negative) Urine Blood (Negative) Urine Nitrite (Negative) Urine Bilirubin (Negative) Urine Urobilinogen (Negative) Ur Leukocyte Esterase (Negative) Urine WBC (Auto) (0-5) /hpf Urine RBC (Auto) (0-2) /hpf U Hyaline Cast (Auto) (0-2) /lpf U Epithel Cells (Auto) (0-2) /hpf Urine Bacteria (Auto) (None Seen) Nasal Influ A H1 2008 PCR (NotDetected) Nasal Screen MRSA (PCR) Negative (Negative) Adenovirus (PCR) (NotDetected) B. pertussis DNA (PCR) (NotDetected) B.parapertussis DNA PCR (NotDetected) C. pneumoniae DNA (PCR) (NotDetected) Coronavirus OC43 (PCR) (NotDetected) Coronavirus HKU1 (PCR) (NotDetected) Coronavirus 229E (PCR) (NotDetected) SARS-CoV-2 (PCR) (NotDetected) Coronavirus NL63 (PCR) (NotDetected) Human Metapneumovir PCR (NotDetected) Influenza Type B (PCR) (NotDetected) M. pneumoniae (PCR) (NotDetected) Parainfluenza 1 (PCR) (NotDetected) Parainfluenza 2 (PCR) (NotDetected) Parainfluenza 3 (PCR) (NotDetected) Parainfluenza 4 (PCR) (NotDetected) RSV (PCR) (NotDetected) Entero/Rhino (PCR) (NotDetected) Administered Medications Lactic Acid (Ammonium Lactate 12% Lotion 225 Gm Btl) 1 gm EXT TID STEPHANIE Stop: 07/19/24 13:59 Last Admin: 06/19/24 16:02 Dose: 1 gm Documented By: AMADOR Lactobacillus Acidophilus (Advanced Probiotic 625 Mg Capsule) 1,250 mg PO DAILY STEPHANIE Stop: 07/19/24 13:59 Last Admin: 06/19/24 16:03 Dose: 1,250 mg Documented By: AMADOR Discontinued Medications Sodium Chloride (Nss) 1,000 mls @ 999 mls/hr IV .Q1H1M STEPHANIE Stop: 06/19/24 11:00 Last Infusion: 06/19/24 13:08 Dose: Infused Documented By: Admin: 06/19/24 10:33 Dose: 999 mls/hr Documented By: GRAHAM Cefepime HCl (Maxipime 2000mg) 2,000 mg in 20 mls @ 5 mls/min IV NOW STA; Protocol Stop: 06/19/24 10:01 Last Admin: 06/19/24 10:32 Dose: 5 mls/min Documented By: GRAHAM Metronidazole (Flagyl) 500 mg in 100 mls @ 100 mls/hr IV NOW STA; Protocol Stop: 06/19/24 12:09 Last Infusion: 06/19/24 13:08 Dose: Infused Documented By: Admin: 06/19/24 11:17 Dose: 100 mls/hr Documented By: GRAHAM Ondansetron HCl (Ondansetron Inj 2 Mg/Ml 2 Ml Vial) 4 mg IV NOW STA Stop: 06/19/24 10:02 Last Admin: 06/19/24 10:32 Dose: 4 mg Documented By: GRAHAM Imaging Data Radiologist's Impression: Chest X-Ray 06/19/24 09:58 XR chest 1V portable CLINICAL HISTORY: Sepsis COMPARISON STUDY: 05/28/2024 FINDINGS: There is a new, patchy airspace opacity in the left lung base. There is also increased reticular markings in the upper lobes bilaterally right greater than left. The heart remains enlarged with pulmonary vascular congestion. There is no pleural effusion or pneumothorax. There is moderate gaseous distention of the stomach. IMPRESSION: New left basilar infiltrate suspicious for pneumonia. Chronic cardiomegaly and pulmonary vascular congestion. Moderate gaseous distention of the stomach. ACT 112: Negative or not required by law. Electronically signed by: Eden Torres M.D. 06/19/2024 10:19 AM Discharge Plan Visit Data Chief Complaint: Illness Stated Complaint: WEAKNESS, VOMITING, ED Provider: Art Braun Discharge Problem: Altered mental status, Left lower lobe pneumonia, Catheter-associated urinary tract infection, Anemia, Thrombocytopenia Patient Disposition: Admitted As Inpatient Discharge Instructions Interventions: ED Discharge Assessment Last Done: 06/19/24 13:26 Discharge Problem: Altered mental status Qualifiers: Altered mental status type: unspecified Qualified Code(s): R41.82 - Altered mental status, unspecified Left lower lobe pneumonia Qualifiers: Pneumonia type: due to unspecified organism Qualified Code(s): J18.9 - Pneumonia, unspecified organism Catheter-associated urinary tract infection Qualifiers: Indwelling urinary catheter type: indwelling urethral catheter Encounter type: initial encounter Qualified Code(s): T83.511A - Infection and inflammatory reaction due to indwelling urethral catheter, initial encounter; N39.0 - Urinary tract infection, site not specified Anemia Qualifiers: Anemia type: unspecified type Qualified Code(s): D64.9 - Anemia, unspecified
[2024-06-19 10:16] LABS: Basophils # (auto) 0.02 K/uL (0.00-0.20); Basophils % (auto) 0.3 %; Eosinophils # (auto) 0.07 K/uL (0.00-0.50); Eosinophils % (auto) 0.9 %; Hematocrit (blood only) 31.5 % (37.0-47.0); Hemoglobin 10.6 g/dl (12.0-16.0); Immature Granulocytes # (auto) 0.05 K/uL (0.01-0.20); Immature Granulocytes % (auto) 0.7 %; Lymphocytes # (auto) 0.61 K/uL (1.20-3.40); Lymphocytes % (auto) 8.2 %; Mean Corpuscular Hemoglobin 33.3 pg (25.0-34.0); Mean Corpuscular Hgb Conc 33.7 g/dL (32.0-36.0); Mean Corpuscular Volume 99.1 fL (80.0-100.0); Mean Platelet Volume 11.5 fL (9.4-12.4); Monocytes # (auto) 0.52 K/uL (0.11-0.59); Neutrophils # (auto) 6.16 K/uL (1.40-6.50); Neutrophils % (auto) 82.9 %; Platelet Count 93 K/uL (130-400); RDW Coefficient of Variation 15.2 % (11.5-14.5); RDW Standard Deviation 54.4 fL (36.4-46.3); Red Blood Count 3.18 M/uL (4.20-5.40); White Blood Count 7.43 K/ul (4.8-10.8)
--- NOTE | 2024-06-19 10:21 | XRay Report ---
XR chest 1V portable CLINICAL HISTORY: Sepsis COMPARISON STUDY: 05/28/2024 FINDINGS: There is a new, patchy airspace opacity in the left lung base. There is also increased reti cular markings in the upper lobes bilaterally right greater than left. The heart remains enlarged wit h pulmonary vascular congestion. There is no pleural effusion or pneumothorax. There is moderate gase ous distention of the stomach. IMPRESSION: New left basilar infiltrate suspicious for pneumonia. Chronic cardiomegaly and pulmonary vascular congestion. Moderate gaseous distention of the stomach. ACT 112: Negative or not required by law. Electronically signed by: Eden Torres M.D. 06/19/2024 10:19 AM
[2024-06-19 10:30] LABS: Appearance Urine Turbid (Clear); Bacteria Urine Automated 4+ (None Seen); Bilirubin Urine Negative (Negative); Blood Urine 2+ (Negative); Cast Urine Automated 0-2 /lpf (0-2); Color Urine Yellow; Epithelial Cell Urine Auto 0-2 /hpf (0-2); Glucose Urine UA Negative (Negative); Ketones Urine Negative (Negative); Leukocyte Esterase Urine 3+ (Negative); Nitrite Urine Negative (Negative); Protein Urine 2+ (Negative); Specific Gravity Urine 1.015 (1.000-1.030); Urobilinogen Urine Negative (Negative); WBC Urine Automated >50 /hpf (0-5); pH Urine 5.5 (4.5-7.5)
[2024-06-19] MEDS: CEFEPIME 2000MG 2,000 MG/20 ML SYR IV STA (10:32)
[2024-06-19] MEDS: ONDANSETRON INJ 2 MG/ML 2 ML VIAL IV STA (10:32)
[2024-06-19] MEDS: SODIUM CHLORIDE 0.9% 1,000 ML IV SCH (10:33)
[2024-06-19 10:35] LABS: Alanine Aminotransferase 10 U/L (7-52); Albumin Level 2.7 gm/dl (3.4-5.0); Alkaline Phosphatase 74 U/L (34-104); Anion Gap 4 (3-11); Aspartate Aminotransferase 15 U/L (13-39); BUN Creatinine Ratio 17.4 (10-20); Bilirubin,Total 0.6 mg/dl (0.2-1.0); Blood Urea Nitrogen 15 mg/dl (6-23); Calcium 8.6 mg/dl (8.6-10.3); Carbon Dioxide 21 mmol/L (21-32); Chloride 109 mmol/L (98-107); Creatinine Clr Calc Pharmacy 35.4 ml/min; Glucose 90 mg/dl (70-99(Fasting)); Magnesium 1.8 mg/dl (1.7-2.4); Potassium 4.2 mmol/L (3.5-5.1); Sodium 134 mmol/L (136-145); Total Protein 9.2 gm/dl (6.0-8.3)
[2024-06-19 10:37] LABS: Troponin I High Sensitivity 10.3 pg/ml (0-14)
[2024-06-19 10:59] LABS: Adenovirus PCR Not Detected (NotDetected); Bordetella parapertussis PCR Not Detected (NotDetected); Bordetella pertussis PCR Not Detected (NotDetected); Chlamydia pneumoniae PCR Not Detected (NotDetected); Coronavirus 229E PCR Not Detected (NotDetected); Coronavirus CoV-2 (COVID19)PCR Not Detected (NotDetected); Coronavirus HKU1 PCR Not Detected (NotDetected); Coronavirus NL63 PCR Not Detected (NotDetected); Coronavirus OC43PCR Not Detected (NotDetected); Human Metapneumovirus PCR Not Detected (NotDetected); Influenza A (H1 2009) PCR DETECTED (NotDetected); Influenza B PCR Not Detected (NotDetected); Mycoplasma pneumoniae PCR Not Detected (NotDetected); Parainfluenza Virus 1 PCR Not Detected (NotDetected); Parainfluenza Virus 2 PCR Not Detected (NotDetected); Parainfluenza Virus 3 PCR Not Detected (NotDetected); Parainfluenza Virus 4 PCR Not Detected (NotDetected); Respiratory Syncytial VirusPCR Not Detected (NotDetected); Rhinovirus/Enterovirus PCR Not Detected (NotDetected)
--- OUTSIDE RECORDS SUMMARY | 2024-06-19 11:01 | External Medical Summary | Summary of Care ---
Author Name Unknown Organization [facility] Address [address] [place] [address] Phone [phone] Care Team Providers Care Ice Cream Scooper Name Role Phone Eilazar Reis MD Primary Care Provider [phone] Reason for Visit * Reason Comments Follow Up Pt here for a f/u fo r increased anxiety and fear of falling. Encounter Details Date Type Department Care Team (Late st Contact Info) Description 06/15/2024 1:00 PM EST Office Visit Family Practice [facility] [address] [place] [address] Adria Hoang MD [address] [place] [address] Adjustment disorder with anxious mood*; Diastolic CHF, chronic (HCC); Urinary retention with incomplete bladder emptying; MGUS (monoclonal gammopathy of unknown significance); Loss of appetite; Loss of weight Allergies Active Allergy Reactions Criticality Noted Date Comments Oxaprozin Psych complications High 06/18/2016 depression Other Reaction(s): MAKES FEEL DEPRESSED Simvastatin Other (Please comment) High 06/18/2016 Critical liver lab results Other Reaction(s): ELEVATED LIVER ENZYMES documented as of this encounter (statuses as of 06/16/2024) Medications Docusate Sodium 100 MG Oral Capsule Take [...] taking differently:1 Drop Both eyesDaily(AM), Reported on 06/15/2024 Systane 0.4-0.3 % Ophthalmic Solution (Artificial Tears) Instill into both eyes 4 times a day as needed for Dry eyes. Active Furosemide 20 MG Oral Tablet (Lasix)Indication s:Bilateral lower extremity edema TAKE 1 TABLET BY MOUTH DAILY 90 Tablet 1 023 Active Additional Information Patient taking differently:20 mg OralDAILY PRN, Other, edema, Indications: taking as needed, Reported on 06/15/2024 Polyethylene Glycol 3350 17 GM/SCOOP Oral Powder (MiraLax) Take 17 g by mouth as needed for Constipation. Dissolve one heaping tablespoon in 8 ounces of water or juice. 850 g 3 023 Active Ondansetron 4 MG Oral Tablet Disintegrating (Zofran)Indicatio ns:Nausea Place 1 Tablet on tongue every 8 hours as needed for Nausea. dissolve on tongue. 20 Tablet 1 024 Active Metoprolol Succinate ER 25 MG Oral Tablet Extended Release 24 Hour (toPROL XL)Indications:Pa roxysmal atrial fibrillation (HCC) TAKE 1/2 TABLET BY MOUTH DAILY 45 Tablet 3 024 Active Amiodarone HCl 200 [...] AT BEDTIME 270 Tablet 2 024 Active Pravastatin Sodium 80 MG Oral TabletIndications :Dyslipidemia, goal LDL below 130 Take 1 Tablet by mouth every evening. 90 Tablet 3 025 Active Spironolactone 25 MG Oral Tablet (Aldactone) TAKE ONE-HALF TABLET BY MOUTH IN THE MORNING 45 Tablet 1 025 Active Fexofenadine HCl 180 MG Oral Tablet (Helen Allergy) Take 1 Tablet by mouth every afternoon. Active Metamucil Fiber 2 GM Oral Tablet Chewable Take 1 Each by mouth in the morning. Active Saccharomyces boulardii 250 MG Oral Capsule (Florastor) Take 1 Capsule by mouth in the morning. Active Vitamin C 500 MG Oral Tablet Chewable Take 1 Tablet by mouth in the morning. Active Famotidine 20 MG Oral Tablet (Pepcid) Take 1 Tablet by mouth daily as needed for Heartburn. Active Calcium 500 MG Oral Tablet Take 1 Tablet by mouth in the morning. 90 Tablet 1 025 Active Mirtazapine 15 MG Oral Tablet (Remeron) Take 1 Tablet by mouth at bedtime. 90 Tablet 1 025 Active Magnesium Oxide -Mg Supplement 500 MG Oral Tablet Take 1 Tablet by mouth in the morning. 90 Tablet 1 025 Active Magnesium 500 MG Oral Tablet Take 1 Tablet by mouth in the morning. 2024 Discontinued Ferrous Sulfate 325 (65 Fe) MG Oral Tablet (Feosol)Indicatio ns:Iron deficiency anemia due to chronic blood loss Take one by mouth every other day 60 Tab 3 021 2024 Discontinued Polymyxin B-Trimethoprim 74272-5.1 UNIT/ML-% Ophthalmic Solution (Polytrim) INSTILL 1 DROP FOUR TIMES A DAY RIGHT EYE - BEGIN 3 DAYS BEFORE SURGERY 2024 Discontinued(M edication List Clean Up) Gemtesa 75 MG Oral Tablet (Vibegron) Take 1 Tablet by mouth in the morning. 30 Tablet 11 024 2024 Discontinued(M edication List Clean Up) Calcium 500 MG Oral Tablet Take 1 Tablet by mouth in the morning. 2024 Discontinued(R efill) Solifenacin Succinate 5 MG Oral Tablet (VESIcare) Take 1 Tablet by mouth in the morning. 90 Tablet 3 024 2024 Discontinued(M edication List Clean Up) Oseltamivir Phosphate 75 MG Oral Capsule (Tamiflu) Take 1 Capsule by mouth in the morning for 10 days. For 10 days.. 10 Capsule 025 2024 Discontinued(M edication List Clean Up) QUEtiapine Fumarate 25 MG Oral Tablet (SEROquel) Take 1 Tablet by mouth at bedtime. 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 Increased risk for Hereditary Hemochromatosis. Paroxysmal atrial fibrillation 09/10/2016 S/P AVR (aortic valve replacement) 09/09/2016 Dyslipidemia 06/18/2016 Gastroesophageal reflux disease without esophagi tis 06/18/2016 documented as of this encounter (statuses as of 06/16/2024) Resolved Problems Problem Noted Date Diagnosed Date [...] as of this encounter (statuses as of 06/16/2024) Immunizations Name Administration Dates Next Due COVID-19 [...] (Prevnar) 01/22/2015 Pneumococcal Polysaccharide PPV23 (Pneumovax) 03/25/2016,01/12/2006 RSV Vac., Recomb, Adjuvant, PF,0.5 Ml (Arexvy) 03/26/2023 Season Influenza, Quad, PF, Adjuvanted, 65+ Yrs, [...] Packs/Day Years Used Date Smoking Tobacco: Never Passive Smoke Exposure: Never Smokeless Tobacco: Never Tobacco Cessation:Counseling Given: Not Answered Alcohol Use Standard Drinks/Week Comments Not Currently 0 (1 standard drink = 0.6 oz pur e alcohol) rarely PHQ-2 Answer Date Recorded PHQ Adult Total Score 2 05/30/2024 Hunger Vital Sign Answer Date Recorded Within the past 12 months, y ou worried that your food would run out before you got the money to buy more. Never true 05/30/19 25 Within the past 12 months, t he food you bought just didn't last and you didn't have money to get more. Never true 05/30/2024 Childcare Answer Date Recorded Do you feel overwhelmed with taking care of a child, family member or friend? No 05/30/2024 Does your family need help f inding childcare? (Household - for ages 0-17 years) Not on file 05/30/2024 Clothing Answer Date Recorded Have you been unable to get clothing when it was really needed? No 05/30/2024 Is your family able to get c lothes or diapers when needed? (Household - for ages 0-17 years) Not on file 05/30/2024 Personal Safety Answer Date Recorded Do you feel unsafe or have concerns for your saf ety? No 05/30/2024 Do you have concerns for you r family's safety? (Household - for ages 0-17 years) Not on file 05/30/2024 Utilities Answer Date Recorded Do you have trouble paying y our heating, water, or electric bill? No 05/30/2024 Is your family able to pay t he heat, water, or electric bill? (Household - for ages 0-17 years) Not on file 05/30/2024 Does your family have access to good internet? (Household - for ages 0-17 years) Not on file 05/30/2024 Employment Status Answer Date Recorded Are you unemployed or without regular income? No 05/30/2024 Does the household have a re gular source of income? (Household - for ages 0-17 years) Not on file 05/30/2024 Social Connections Answer Date Recorded How often do you feel lonely or isolated from th ose around you? Often 05/30/2024 Financial Resource Strain Answer Date R ecorded Do you have any trouble payi ng for your medications, or do you think you might in the future? No 05/30/2024 Does your family have troubl e paying for medicine? (Household - for ages 0-17 years) Not on file 05/30/2024 Transportation Needs Answer Date Record ed Do you have trouble getting a ride to medical visits or work? (Adult - for ages 18 years and over) Not on file 05/30/2024 Does your family have a hard time getting a ride to doctors visits? (Household - for ages 0-17 years) Not on file 05/30/2024 Has lack of transportation k ept you from medical appointments, meetings, work, or from getting things needed for daily living? Check all that apply. No 05/30/2024 Do you (or your family) have trouble finding or paying for a ride (transportation)? (Household - for ages 0-17 years) Not on file 05/30/2024 Housing Stability Answer Date Recorded Do you currently live in a s helter or have no steady place to sleep at night? No 05/30/2024 Do you think you are at risk of becoming homeless? (Adult - for ages 18 years and over) Not on file 05/30/2024 Does your family worry about paying for your home or becoming homeless? (Household - for ages 0-17 years) Not on file 0 05/30/2024 Are you homeless or worried that you might be in the future? No 05/30/2024 Are you (or your family) pasha eless or worried that you might be in the future? (Household - for ages 0-17 years) Not on file Food Insecurity Answer Date Recorded Within the past 12 months, y ou worried that your food would run out before you got the money to buy more. Never true 05/30/19 25 Within the past 12 months, t he food you bought just didn't last and you didn't have money to get more. Never true 05/30/2024 Do you need food for this week? 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 Not on file Not on file Not on file documented as of this encounter Last Filed Vital Signs Vital Sign Reading Time Taken Comments Blood Pressure 102/52 06/15/2024 1:14 PM EST Pulse 72 06/15/2024 1:14 PM EST Temperature 36.7 C (98 F) 06/15/2024 1:14 PM EST Respiratory Rate 20 06/15/2024 1:14 PM EST Oxygen Saturation - - Inhaled Oxygen Concentration - - Weight - - Height - - Body Mass Index - - documented in this encounter Functional Status * [...] Assessment Author Yes 12/10/2020 8:27 PM EDT Schuler, Ki m, RN documented as of this encounter Mental Status * Because of a physical, mental, or emotional condition, do you have serious difficulty concentrating, remembering, or making decisions? (5 years old or older) Answer Entry Date Author No 12/10/2020 8:27 PM Casey Beltrán, RN documented in this encounter Progress Notes * Adria Hoang MD - 06/15/2024 1:50 PM EST Images from the original note were not included. History of Present Illness Shannon Salazar is a 88 year old female that presents for Follow Up (Pt here for a f/u for increased anxiety and fear of falling. ) Here with her daughter. She recently moved to [facility] after a hospitalization and rehab stay. She was in the hospital with UTI and urinary retention. She still has a blas catheter in place - it has been changed. She is new to the nursing facility - she was previously living with her other daughter but had to relocate as that daughter is quite ill. She feels very uncomfortable inthe long-term. Daughter who is here today states they are looking at other facility as an option([facility]). She has a hard time describing what is making her so scared but there are many things going on: hematology fears her MGUS may have converted to MM and she is having bone marrow done next week. Her other daughter is gravely ill. She has lost weight and lost appetite and feels week - very afraid of falling. Physical Exam BP 102/52 (BP Site: Left Arm, BP Position: Sitting, BP Cuff Size: Regular) | Pulse 72 | Temp 98 F(36.7 C) (Tympanic) | Resp 20 AAOx3 Hard of hearing Frail, weak appearing elderly woman NCAT/ PERRL Neck supple Throat clear RRR Lungs CTABL Abd soft +BS Blas catheter in place drainage clear yellow urine Ext warm and well perfused No gross neuro deficits Wheelchair bound I have reviewed most recent labs None Assessment and Plan Adjustment disorder with anxious mood - multifactorial. Related mostly to moving, but also her illness and her daughter's illness. Will stop the seroquel and switch to mirtazapine. The seroquel Diastolic CHF, chronic (HCC) - stable/controlled Urinary retention with incomplete bladder emptying - blas still in place. No evidence of infection currently MGUS (monoclonal gammopathy of unknown significance) - for upcoming bone marrow bx/analysis Loss of appetite - ongoing Loss of weight - ongoing Resume the supps she was taking prior to hospitalization and rehab. Stop the seroquel which was started in rehab. Replace with mirtazapine at night. Wrap-Up Time: I spent a total of 40-54 minutes (exact time 50 mins) on the date of service in preparation, delivery, and documentation of the care provided to Shannon Salazar excluding any time spent in the performance of separately billed services. documented in this encounter Plan of Treatment Upcoming Encounters Date Type Department Care Team (Late st Contact Info) Description 06/20/2024 10:45 AM EDT Imaging Radiology, [facility] [address] [place] [id number] 06/21/2024 11:00 AM EDT Hospital Encounter OR [facility], Operating Room, [facility] - 4th Floor [address] [place] [phone] [facility], In And Out Surgery [address] [place] [address] 06/21/2024 11:00 AM EDT Appointment Radiology, [address] [place] [address] 06/21/2024 11:00 AM EDT - 06/21/2024 12:00 PM EDT Surgery OR [facility], Operating Room, [facility] - 4th Floor [address] [place] [phone] [facility], In And Out Surgery [address] [place] [address] PRE / POST CARE 06/25/2024 4:00 PM EDT Office Visit Hematology/Oncology [place] [facility] [place] [address] [facility] [place] [phone] Leon Napier MD [address] [place] [address] 07/20/2024 10:40 AM EDT Office Visit Rheumatology [facility] [address] [place] [phone] Juan Pablo [facility]led[facility] [address] [facility] [address] 09/12/2024 11:00 AM EDT Office Visit Urology Matias Small [address] [place] [address] Kayla Rick PA-C [address] [place] [address] 09/21/2024 1:20 PM EDT Office Visit Family Practice [facility] [address] [place] [address] Eliazar Reis MD [address] [place] [address] 12/24/2024 3:30 PM EDT Office Visit Cardiology, [facility] [address] [place] [address] Pollo Meyer MD [address] [facility] [place] [address] Scheduled Procedures Name Priority Associated Diagnoses Date/Ti me PRE / POST CARE Multiple myeloma, remission status unspecified (HCC) 06/21/2024 11:00 AM EDT Health Maintenance Due Date Last Done Comments Adult Wellness Visit 03/11/2022 03/11/2021 Fasting Serum Ferritin Hereditary Hemochromatosis (HFE) Annual,All Ages 06/17/2022 06/17/2021 COVID-19 Vaccine (2023-05 5 season) 2024 12/30/2023, 03/26/2023, 02/15/2022, Additional history exists DXA Scan 11/29/2024 11/29/2022, 11/10, 11/24/2020, Additional history exists Transferrin Saturation Hereditary Hemochromatosis (HFE) Annual,All Ages 03/12/2025 03/12/2024, 06/17/2021 Depression Screening 05/30/2025 05/30/2024 DTap/Tdap Vaccines (2 - Td o r Tdap) 02/05/2029 02/05/2019 Pneumococcal Vaccine: 50+ Years Completed 03/25/2016, 01/22/2015, 01/12/2006 Zoster Vaccines Completed 12/28/2019, 08/2019, 07/16/2014 Influenza Vaccine (FLU shot) Completed , 01/06/2023, 12/30/2021, Additional history exists VITAMIN D LEVEL ONCE IN A LIFETIME-USE SMARTSET# [id number] Completed 06/11/2024, 07/08/2023, 12/07/2022, Additional history exists HPV (Gardasil) Vaccine Aged Out No lo nger eligible based on patient's age to complete this topic Hepatitis B Vaccine Aged Out No longe r eligible based on patient's age to complete this topic MENINGOCOCCAL (MENACTRA/MENVEO) Aged Out No longer eligible based on patient's age to complete this topic Meningitis B Vaccine (Bexsero/Trumemba) Aged Out No longer eligible based on patient's age to complete this topic documented as of this encounter Medical Devices Implanted Type Area Precision Assembler Device Identifier Shelf Expiration Date Model / Serial / Lot Sut Steel 6 [id number] - [id number] Implanted:Qty : 4 on 09/09/2016 by John Olvera MD at OR [facility] [place] N/A: Chest JNJ : [employer] 05/11/2021 [id number] / / [id number] Atriclip 35mm [id number] - [id number] Implanted:Qty : 1 on 09/09/2016 by John Olvera MD at OR [facility] [place] N/A: Heart ATRICURE 08/09/2018 [id number] / / [id number] Valve Heart Aortic Epic 23mm - [id number] - [id number] Implanted:Qty : 1 on 09/09/2016 by John Olvera MD at OR [facility] [place] N/A: Aorta ST LESA : CARDIOVASCULAR 02/03/2020 [id number] / [id number] / Allomax Mesh 2 X 4 [id number] - [id number] - [id number] Implanted:Qty : 1 on 12/10/2020 by Jenny Brooks MD at OR [facility] [place] N/A: Abdomen CR BARD : DAVOL 03/10/2025 [id number] / [id number] / [id number] Description:PEH documented as of this encounter Visit Diagnoses Diagnosis Adjustment disorder with anxious mood- Primary Adjustment disorder with anxiety Diastolic CHF, chronic (HCC) Chronic diastolic heart failure Urinary retention with incomplete bladder emptying Incomplete bladder emptying MGUS (monoclonal gammopathy of unknown significance) Monoclonal paraproteinemia Loss of appetite Anorexia Loss of weight Multiple myeloma, remission status unspecified (HCC) documented in this encounter Advance Directives * [...] and were consensually agreed upon. Care Teams Ice Cream Scooper Relationship Specialty Start Date End Date Eliazar Reis MD [address] [facility] [place] [address] PCP - General Family Medicine 09/02/20 documented as of this encounter"
--- OUTSIDE RECORDS SUMMARY | 2024-06-19 11:02 | External Medical Summary | Summary of Care ---
Author Name Unknown Organization [facility] Address [address] [place] [address] Phone [phone] Care Team Providers Care Stacking Machine Operator Name Role Phone Eliazar Reis MD Primary Care Provider [phone] Reason for Visit * Reason Onset Date Comments transfer of records 06/15/2024 Encounter Details Date Type Department Care Team (Late st Contact Info) Description 06/15/2024 Telephone Family Practice [facility] [address] [place] [address] Eliazar Reis MD [address] [place] [address] transfer of records Allergies Active Allergy Reactions Criticality Noted Date Comments Oxaprozin Psych complications High 06/18/2016 depression Other Reaction(s): MAKES FEEL DEPRESSED Simvastatin Other (Please comment) High 06/18/2016 Critical liver lab results Other Reaction(s): ELEVATED LIVER ENZYMES documented as of this encounter (statuses as of 06/15/2024) Medications Docusate Sodium 100 MG Oral Capsule [...] juice. 850 g 3 03/11/20 23 Active Ondansetron 4 MG Oral Tablet Disintegrating (Zofran)Indication s:Nausea Place 1 Tablet on tongue every 8 hours as needed for Nausea. dissolve on tongue. 20 Tablet 1 09/09/19 24 Active Metoprolol Succinate ER 25 MG Oral Tablet Extended Release 24 Hour (toPROL XL)Indications:Par oxysmal atrial fibrillation (HCC) TAKE 1/2 TABLET BY MOUTH DAILY 45 Tablet 3 10/17/19 24 Active Amiodarone HCl 200 MG Oral [...] BEDTIME 270 Tablet 2 01/11/20 24 Active Pravastatin Sodium 80 MG Oral TabletIndications: Dyslipidemia, goal LDL below 130 Take 1 Tablet by mouth every evening. 90 Tablet 3 04/26/19 25 Active Spironolactone 25 MG Oral Tablet (Aldactone) TAKE ONE-HALF TABLET BY MOUTH IN THE MORNING 45 Tablet 1 05/23/19 25 Active Fexofenadine HCl 180 MG Oral Tablet [...] mouth in the morning. 90 Tablet 1 06/16/19 25 Active Mirtazapine 15 MG Oral Tablet (Remeron) Take 1 Tablet by mouth at bedtime. 90 Tablet 1 06/16/19 25 Active Magnesium Oxide -Mg Supplement 500 MG Oral Tablet Take 1 Tablet by mouth in the morning. 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 Increased risk for Hereditary Hemochromatosis. Paroxysmal atrial fibrillation 09/10/2016 S/P AVR (aortic valve replacement) 09/09/2016 Dyslipidemia 06/18/2016 Gastroesophageal reflux disease without esophagi tis 06/18/2016 documented as of this encounter (statuses as of 06/15/2024) Resolved Problems Problem Noted Date Diagnosed Date [...] as of this encounter (statuses as of 06/15/2024) Immunizations Name Administration Dates Next Due COVID-19 [...] Passive Smoke Exposure: Never Smokeless Tobacco: Never Alcohol Use Standard [...] 05/30/2024 Does the household have a re lar source of income? 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 Answer Date of Assessment Author No 12/10/2020 8:27 PM Casey Beltrán, RN * Are you blind or do you have serious difficulty seeing, even when wearing glasses? Answer Date of Assessment Author No 12/10/2020 8:27 PM Casey Beltrán RN * Do you have serious difficulty walking or climbing stairs? (5 years old or older) Answer Date of Assessment Author Yes 12/10/2020 8:27 PM Caesy Beltrán RN * Do you have difficulty [...] Assessment Author Yes 12/10/2020 8:27 PM Casey Beltrán, RN documented as of this encounter Mental Status * Because of a physical, mental, or emotional condition, do you have serious difficulty concentrating, remembering, or making decisions? (5 years old or older) Answer Entry Date Author No 12/10/2020 8:27 PM EDT Casye Schuler, RN documented in this encounter Miscellaneous Notes * Telephone Encounter - Sarah Murray OSA - 06/15/2024 2:45 PM EST Patient would like all medical records transferred to [facility] for the purpose of continued care. [facility] documented in this encounter Plan of Treatment Upcoming Encounters Date Type Department Care Team (Late st Contact Info) Description 06/20/2024 10:45 AM EDT Imaging Radiology, [place] [address] [place] [address] 06/21/2024 11:00 AM EDT Hospital Encounter OR [facility], Operating Room, [facility] - 4th Floor [address] [place] [address] [facility], In And Out Surgery [address] [place] [address] [address] 06/21/2024 11:00 AM EDT Appointment Radiology, [facility] [address] [place] [address] 06/21/2024 11:00 AM EDT - 06/21/2024 12:00 PM EDT Surgery OR [facility], Operating Room, [facility] - 4th Floor [address] [place] [address] [facility], In And Out Surgery [address] [place] [address] [address] PRE / POST CARE 06/25/2024 4:00 PM EDT Office Visit Hematology/Oncology [place] [place] [address] [place] [address] [address] Leon Napier MD [address] [place] [address] 07/20/2024 10:40 AM EDT Office Visit Rheumatology [facility] [address] [phone] Juan Pablo Rebolledo MD [address] [facility] [place] [address] 09/12/2024 11:00 AM EDT Office Visit Urology Matias Small [address] [place] [address] Kayla Rick PA-C [address] [place] [address] 09/21/2024 1:20 PM EDT Office Visit Family Practice [facility] [address] [address] Eliazar Reis MD [address] [place] [address] 12/24/2024 3:30 PM EDT Office Visit Cardiology, [facility] [address] [address] [address] Pollo Meyer MD 132 [facility] [place] [address] Scheduled Procedures Name Priority Associated Diagnoses Date/Ti me PRE / POST CARE Multiple myeloma, remission status unspecified (HCC) 06/21/2024 11:00 AM EDT Health Maintenance Due Date Last Done Comments Adult Wellness Visit 03/11/2022 03/11/2021 Fasting Serum Ferritin Hereditary Hemochromatosis (HFE) Annual,All Ages 06/17/2022 06/17/2021 COVID-19 Vaccine (8 2023- 5 season) 2024 12/30/2023, 03/26/2023, 02/15/2022, Additional [...] D LEVEL ONCE IN A LIFETIME-USE SMARTSET# [id number] Completed 06/11/2024, 07/08/2023, 12/07/2022, Additional history exists [...] this encounter Medical Devices Implanted Type Area Nurse College Device Identifier Shelf Expiration Date Model / Serial / Lot Sut Steel 6 M654g - [id number] Implanted:Qty : 4 on 09/09/2016 by John Olvera MD at OR [facility] [place] [place] N/A: Chest JNJ : [employer] 05/11/2021 [id number] / / [id number] Atriclip 35mm [id number] - [id number] Implanted:Qty : 1 on 09/09/2016 by John Olvera MD at OR [facility] [place] [place] N/A: Heart ATRICURE 08/09/2018 [id number] / / [id number] Valve Heart Aortic Epic 23mm - [id number] - [id number] Implanted:Qty : 1 on 09/09/2016 by John Olvera MD at OR [facility] [place] [place] N/A: Aorta ST LESA : CARDIOVASCULAR 02/03/2020 [id number] / [id number] / Allomax Mesh 2 X 4 [id number] - [id number] - [id number] Implanted:Qty : 1 on 12/10/2020 by Jenny Brooks MD at OR [facility] [place] [place] N/A: Abdomen CR BARD : DAVOL 03/10/2025 [id number] / [id number] / [id number] Description:[facility] documented as of this encounter Advance [...] and were consensually agreed upon. Care Teams Stacking Machine Operator Relationship Specialty Start Date End Date Eliazar Reis MD 132 [facility] [place] [address] PCP - General Family Medicine 09/02/20 documented as of this encounter
--- OUTSIDE RECORDS SUMMARY | 2024-06-19 11:02 | External Medical Summary | Summary of Care ---
Author Name Unknown Organization [facility] Address [address] [place] [address] Phone [phone] Care Team Providers Care Dietary Tech Name Role Phone Eliazar Reis MD Primary Care Provider [phone] Reason for Visit * Reason Onset Date Comments Scheduling 06/13/2024 Encounter Details Date Type Department Care Team (Late st Contact Info) Description 06/13/2024 Telephone Hematology/Oncology, [address] [address] Leon Napier MD [address] [place] [address] Scheduling Allergies Active Allergy Reactions Criticality Noted Date Comments Oxaprozin Psych complications High 06/18/2016 depression Other Reaction(s): MAKES FEEL DEPRESSED Simvastatin Other (Please comment) High 06/18/2016 Critical liver lab results Other Reaction(s): ELEVATED LIVER ENZYMES documented as of this encounter (statuses as of 06/13/2024) Medications Magnesium 500 MG Oral Tablet Take [...] g 3 03/11/20 23 Active Polymyxin B-Trimethoprim 82792-2.1 UNIT/ML-% Ophthalmic Solution (Polytrim) INSTILL 1 DROP [...] MORNING 45 Tablet 1 05/23/19 25 Active Oseltamivir Phosphate 75 MG Oral Capsule (Tamiflu) Take 1 Capsule by mouth in the morning for 10 days. For 10 days.. 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 Increased risk for Hereditary Hemochromatosis. Paroxysmal atrial fibrillation 09/10/2016 S/P AVR (aortic valve replacement) 09/09/2016 Dyslipidemia 06/18/2016 Gastroesophageal reflux disease without esophagi tis 06/18/2016 documented as of this encounter (statuses as of 06/13/2024) Resolved Problems Problem Noted Date Diagnosed Date [...] as of this encounter (statuses as of 06/13/2024) Immunizations Name Administration Dates Next Due COVID-19 mRNA, LNP-s, No Pre serve, 2-Dose Series (Moderna) 06/06/2020,05/09/2020 COVID-19, MRNA-LNP, PF, 50 M CG/0.5 mL, 12 YRS AND ABOVE, IM (MODERNA-Spikevax) 12/30/2023,03/26/2023 COVID-19, mRNA, LNP-s, PF, B ooster, 100mcg/0.5mg (Moderna) 05/13/2021 Covid-19, Mrna, Lnp-s, Pf, B ivalent, 30 Mcg, IM, 12 yrs and above ([email or web address]) 11/07/2021 Pneumococcal Conjugate Vacc, 13 Valent (Prevnar) [...] 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 on file Not on file [...] Yes 12/10/2020 8:27 PM Casey Beltrán, RN * Because of a physical, mental, [...] Casey Schuler RN documented in this encounter Miscellaneous Notes * Telephone Encounter - Radha Cooper OSA - 06/13/2024 9:49 AM EST Spoke to patients gwendolyn Evans to schedule the CT Guided Bone Marrow Biopsy for 06/21 at [facility] Patient identified by: name Person taught: Patient and Family member gwendolyn Evans METHOD: Lecture-telephone interview PATIENT INSTRUCTIONS GIVEN: - General Preoperative Instructions Reviewed - NPO Instructions Reviewed, pt to stop eating 8 hours prior to procedure and stop drinking 2 hoursprior to procedure. -Hired Worker required Location and check-in instructions Verbalizes understanding of education: Yes Procedure date at time of Imaging Encounter: 06/21 What procedure is patient having? CT Guided Bone Marrow Biopsy Laterality confirmed as Not Applicable Does the patient have a yellow bar? did not The Patient and Family member was given the opportunity to ask questions concerning the procedure. Signature: MARISSA Cunningham 06/13/2024 documented in this encounter Plan of Treatment Upcoming Encounters Date Type Department Care Team (Late st Contact Info) Description 06/15/2024 1:00 PM EST Office Visit Family Practice [facility] [address] [address] Adria Hoang MD [address] [address] 06/20/2024 10:45 AM EDT Imaging Radiology, [address] [place] [address] 06/21/2024 11:00 AM EDT Hospital Encounter OR [facility], Operating Room, [facility] - 4th Floor [address] [place] [address] [address] [facility], In And Out Surgery [address] [address] 06/21/2024 11:00 AM EDT Appointment Radiology, [facility] [address] [address] 06/21/2024 11:00 AM EDT - 06/21/2024 12:00 PM EDT Surgery OR [facility], Operating Room, [facility] - 4th Floor [address] [address] [facility], In And Out Surgery [address] [address] PRE / POST CARE 06/25/2024 4:00 PM EDT Office Visit Hematology/Oncology [facility] [place] [address] [place] [phone] Leon Napier MD [address] [place] [address] 07/20/2024 10:40 AM EDT Office Visit Rheumatology [facility] [address] [place] [phone] Juan Pablo Rebolledo MD 25[address] [facility] [place] [address] 09/12/2024 11:00 AM EDT Office Visit Urology Matias Small [address] [place] [address] [address] Kayla Rick PA-C [address] [place] [address] 09/21/2024 1:20 PM EDT Office Visit Family Practice [facility] [address] [address] Eliazar Reis MD [address] [place] [address] 12/24/2024 3:30 PM EDT Office Visit Cardiology, [facility] [address] [place] [address] Pollo Meyer MD [address] [place] [address] Scheduled Procedures Name Priority Associated Diagnoses Date/Ti [...] D LEVEL ONCE IN A LIFETIME-USE SMARTSET# [id number] Completed 06/11/2024, 07/08/2023, 12/07/2022, Additional history exists [...] this encounter Medical Devices Implanted Type Area Veneer Stock Grader Device Identifier Shelf Expiration Date Model / Serial / Lot Sut Steel 6 M654g - [id number] Implanted:Qty : 4 on 09/09/2016 by John Olvera MD at OR [facility] [place] N/A: Chest JNJ : [employer] 05/11/2021 M654G / / [id number] Atriclip 35mm [id number] - [id number] Implanted:Qty : 1 on 09/09/2016 by John Olvera MD at OR [facility] [place] N/A: Heart ATRICURE 08/09/2018 [id number] / / [id number] Valve Heart Aortic Epic 23mm - [id number] - [id number] Implanted:Qty : 1 on 09/09/2016 by John Olvera MD at OR [facility] [place] N/A: Aorta ST LESA : CARDIOVASCULAR 02/03/2020 [id number]- 00 / [id number] / Allomax Mesh 2 X 4 [id number] - [id number] - [id number] Implanted:Qty : 1 on 12/10/2020 by Jenny Brooks MD at OR [facility] [place] N/A: Abdomen CR BARD : DAVOL 03/10/2025 [id number] / [id number] / [id number] Description:[facility] documented as of this encounter Advance Directives [...] and were consensually agreed upon. Care Teams Dietary Tech Relationship Specialty Start Date End Date Eliazar Reis MD [address] [place] [address] PCP - General Family Medicine 09/02/20 documented as of this encounter
--- OUTSIDE RECORDS SUMMARY | 2024-06-19 11:02 | External Medical Summary | Summary of Care ---
Author Name Unknown Organization [facility] Address [address] [place] [address] Phone [phone] Care Team Providers Care Chenille Machine Operator Name Role Phone Eliazar Reis MD Primary Care Provider [phone] Reason for Visit * Reason Onset Date Comments Scheduling 06/13/2024 Encounter Details Date Type Department Care Team (Late st Contact Info) Description 06/13/2024 Telephone Hematology/Oncology, [address] [address] Leon Napier MD [address] [place] [address] Scheduling Allergies Active Allergy Reactions [...] g 3 03/11/20 23 Active Polymyxin B-Trimethoprim 61937-1.1 UNIT/ML-% Ophthalmic Solution (Polytrim) INSTILL 1 DROP [...] Overview (02/18/2020): 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 Increased risk for Hereditary Hemochromatosis. 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 Daughter aware to have patient hold her lasix that morning and to report to the outpatient lab prior to checking in at [facility] to have labs drawn. Order for cbc with diff placed * Telephone Encounter - Radha Cooper OSA - 06/13/2024 9:49 AM EST Spoke to patients gwendolyn Evans to schedule the CT Guided Bone Marrow Biopsy for 06/[address] [facility] Patient identified by: name Person taught: Patient and Family member gwendolyn Evans METHOD: Lecture-telephone interview PATIENT INSTRUCTIONS GIVEN: - General Preoperative Instructions Reviewed - NPO Instructions Reviewed, pt to stop eating 8 hours prior to procedure and stop drinking 2 hoursprior to procedure. -Materials Specialist required Location and check-in instructions Verbalizes understanding [...] 1:00 PM EST Office Visit Family Practice [facility] [address] [place] [address] Adria Hoang MD [address] [place] [address] 06/20/2024 10:45 AM EDT Imaging Radiology, [place] [address] [place] [address] 06/21/2024 11:00 AM EDT Hospital Encounter OR [facility], Operating Room, [facility] - 4th Floor [address] [place] [address] [facility], In And Out Surgery [address] [place] [address] 06/21/2024 11:00 AM EDT Appointment Radiology, [facility] [address] [place] [address] 06/21/2024 11:00 AM EDT - 06/21/2024 12:00 PM EDT Surgery OR [facility], Operating Room, [facility] - 4th Floor [address] [place] [address] [facility], In And Out Surgery [address] [place] [address] PRE / POST CARE 06/25/2024 4:00 PM EDT Office Visit Hematology/Oncology [place] [address] [place] [phone] Leon Napier MD [address] [place] [address] 07/20/2024 10:40 AM EDT Office Visit Rheumatology [facility] [address] [place] [phone] Juan Pablo Rebolledo MD [address] [facility], [place] [address] 09/12/2024 11:00 AM EDT Office Visit Urology [place] [address] [place] [address] Kayla Rick PA-C [address] [place] [address] 09/21/2024 1:20 PM EDT Office Visit Family Practice [facility] [address] [address] Eliazar Reis MD [address] [place] [address] 12/24/2024 3:30 PM EDT Office Visit Cardiology, [facility] [address] [address] Pollo Meyer MD 132 [facility] [place] [address] Scheduled Orders Name Type Priority Associated Diagnoses Orde r Schedule CBC WITH WBC DIFFERENTIAL Lab STAT Multiple myeloma, remission status unspecified (HCC) Expected: 06/13/2024, Expires: 06/13/2025 Scheduled Procedures Name Priority Associated Diagnoses Date/Ti [...] D LEVEL ONCE IN A LIFETIME-USE SMARTSET# [id number] Completed 06/11/2024, 07/08/2023, 12/07/2022, Additional history exists [...] this encounter Medical Devices Implanted Type Area Delivery Coordinator Device Identifier Shelf Expiration Date Model / Serial / Lot Sut Steel 6 M654g - [id number] Implanted:Qty : 4 on 09/09/2016 by John Olvera MD at OR [facility] [place] N/A: Chest JNJ : [employer] 05/11/2021 M654G / / [id number] Atriclip 35mm [id number] - [id number] Implanted:Qty : 1 on 09/09/2016 by John Olvera MD at OR [facility] [place] N/A: Heart ATRICURE 08/09/2018 [id number] / / [id number] Valve Heart Aortic Epic 23mm - [id number] - [id number] Implanted:Qty : 1 on 09/09/2016 by John Olvera MD at OR [facility] [place] N/A: Aorta ST LESA : CARDIOVASCULAR 02/03/2020 [id number]- 00 / [id number] / Allomax Mesh 2 X 4 [id number] - [id number] - [id number] Implanted:Qty : 1 on 12/10/2020 by Jenny Brooks MD at OR [facility] [place] N/A: Abdomen CR BARD : DAVOL 03/10/2025 [id number] / [id number] / [id number] Description:[facility] documented as of this encounter Visit Diagnoses Diagnosis Multiple myeloma, remission status unspecified (HCC)- Primary Multiple myeloma, remission status unspecified (HCC) documented [...] and were consensually agreed upon. Care Teams Chenille Machine Operator Relationship Specialty Start Date End Date Eliazar Reis MD 132 [facility] [place] [address] PCP - General Family Medicine 09/02/20 documented as of this encounter
--- OUTSIDE RECORDS SUMMARY | 2024-06-19 11:02 | External Medical Summary | Summary of Care ---
Author Name Unknown Organization [facility] Address [address] [place] [address] Phone [phone] Care Team Providers Care Tractor Mechanic Name Role Phone Eliazar Reis MD Primary Care Provider [phone] Reason for Visit * Reason Comments Outpatient Testing Encounter Details Date Type Department Care Team (Late st Contact Info) Description 06/11/2024 4:00 PM EST Laboratory [facility] [address] [place] [phone] [place], [address] [facility] [address] [place] [address] Senile osteoporosis; S/P AVR (aortic valve replacement); Paroxysmal atrial fibrillation (HCC); Diastolic CHF, chronic (HCC); S/P aortic valve replacement; Hyponatremia; Multiple myeloma, remission status unspecified (HCC) Allergies Active Allergy Reactions Criticality Noted Date Comments Oxaprozin Psych complications High 06/18/2016 depression Other Reaction(s): MAKES FEEL DEPRESSED Simvastatin Other (Please comment) High 06/18/2016 Critical liver lab results Other Reaction(s): ELEVATED LIVER ENZYMES documented as of this encounter (statuses as of 06/12/2024) Medications Magnesium 500 MG Oral Tablet Take [...] g 3 03/11/20 23 Active Polymyxin B-Trimethoprim 26399-5.1 UNIT/ML-% Ophthalmic Solution (Polytrim) INSTILL 1 DROP [...] as of this encounter (statuses as of 06/12/2024) Active Problems Problem Noted Date Diagnosed Date [...] Overview (02/18/2020): 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 Increased risk for Hereditary Hemochromatosis. Paroxysmal atrial fibrillation 09/10/2016 S/P AVR (aortic valve replacement) 09/09/2016 Dyslipidemia 06/18/2016 Gastroesophageal reflux disease without esophagi tis 06/18/2016 documented as of this encounter (statuses as of 06/12/2024) Resolved Problems Problem Noted Date Diagnosed Date [...] as of this encounter (statuses as of 06/12/2024) Immunizations Name Administration Dates Next Due COVID-19 [...] No 05/30/2024 Does the household have a [facility] source of income? 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 [address] [phone] Juan Pablo Rebolledo MD [facility] [place] [address] 09/12/2024 11:00 AM EDT Office Visit Urology Matias Small [address] [place] [address] Kayla Rick PA-C [address] [place] [address] 09/21/2024 1:20 PM EDT Office Visit Family Practice [facility] [address] [place] [address] Eliazar Reis MD [address] [place] [address] 12/24/2024 3:30 PM EDT Office Visit Cardiology, [facility] [address] [place] [address] Pollo Meyer MD [address] [place] [address] Pending Results Name Type Priority Associated Diagnoses Date /Time 25-HYDROXY VITAMIN D Lab Routine Senile osteoporosis 06/11/2024 3:54 PM EST [id number]-[id number], SERUM Lab Routine Multiple myeloma, remission status unspecified (HCC) 06/11/2024 3:54 PM EST IMMUNOGLOBULIN QUANTITATIVE Lab Routine Multiple myeloma, remission status unspecified (HCC) 06/11/2024 3:54 PM EST SERUM FREE LIGHT CHAINS Lab Routine Multiple myeloma, remission status unspecified (HCC) 06/11/2024 3:54 PM EST SERUM PROTEIN ELECTROPHORESIS REFLEX PROFILE Lab Routine Multiple myeloma, remission status unspecified (HCC) 06/11/2024 3:54 PM EST SERUM IMMUNOFIXATION Lab Routine Multiple myeloma, remission status unspecified (HCC) 06/11/2024 3:54 PM EST BILIRUBIN, DIRECT Lab Routine S/P AVR (aortic valve replacement) Paroxysmal atrial fibrillation (HCC) Diastolic CHF, chronic (HCC) S/P aortic valve replacement 06/11/2024 3:54 PM EST Health Maintenance Due Date Last [...] D LEVEL ONCE IN A LIFETIME-USE SMARTSET# [id number] Completed 07/08/2023, 12/07/2022, 08/05/2022, Additional history exists Influenza Vaccine (FLU shot) Completed , 01/06/2023, 12/30/2021, Additional history exists HPV (Gardasil) Vaccine Aged [...] encounter Medical Devices Implanted Type Area Aircraft Engineer Device Identifier Shelf Expiration Date Model / Serial / Lot Sut Steel 6 [id number] - [id number] Implanted:Qty : 4 on 09/09/2016 by John Olvera MD [place] [facility] [place]A: Chest JNJ : [employer] 05/11/2021 [id number] / / [id number] Atriclip 35mm [id number] - [id number] Implanted:Qty : 1 on 09/09/2016 by John Olvera MD [place] [facility] N/A: Heart ATRICURE 08/09/2018 [id number] / / [id number] Valve Heart Aortic Epic 23mm - [id number] - [id number] Implanted:Qty : 1 on 09/09/2016 by John Olvera MD at [place] [facility] N/A: Aorta [facility] LESA : CARDIOVASCULAR 02/03/2020 [id number] / [id number] / Allomax Mesh 2 X 4 [id number] - [id number] - [id number] Implanted:Qty : 1 on 12/10/2020 by Jenny Brooks MD at [place] [facility] N/A: Abdomen CR BARD : DAVOL 03/10/2025 [id number] / [id number] / [id number] Description:PEH documented as of this encounter Procedures Procedure Name Priority Date/Time Associated Diagnosis Comments DIFFERENTIAL, AUTOMATED Routine 06/11/2024 3:54 PM EST Multiple myeloma, remission status unspecified (HCC) COMPREHENSIVE METABOLIC PANEL STAT 06/11/2024 3:54 PM EST CBC Routine 06/11/2024 3:54 PM EST Multiple myeloma, remission status unspecified (HCC) CBC Routine 06/11/2024 3:54 PM EST Multiple myeloma, remission status unspecified (HCC) DIFFERENTIAL, TECHNOLOGIST REVIEW Routine 06/11/2024 3:54 PM EST Multiple myeloma, remission status unspecified (HCC) documented in this encounter Results * DIFFERENTIAL, TECHNOLOGIST REVIEW (06/11/2024 3:54 PM EST) Pathologist [facility] nRs 06/11/2024 4:27 PM EST [facility] 56-02 Blood Venous blood specimen / Unknown Venipuncture / Unknown 06/11/2024 3:54 PM EST 06/11/2024 3:54 PM EST Leon Napier MD LAB BLOOD ORDERABLES Fin al Result [facility] 56- [address] [place] [address] * (ABNORMAL) DIFFERENTIAL, AUTOMATED (06/11/2024 3:54 PM EST) WBC 3.94(L) 4.00 - 10.80 K/uL 06/11/2024 4:27 PM EST [facility] 56-02 Neutrophils % 86.8(H) 40.0 - 75.0 % 06/11/2024 4:27 PM EST [facility] 56-02 Lymphocytes % 8.6(L) 18.0 - 42.0 % 06/11/2024 4:27 PM EST [facility] 56 Monocytes % 4.6 1.0 - 11.0 % 06/11/2024 4:27 PM EST [facility] 56- Eosinophils % 0.0 0.0 - 6.0 % 06/11/2024 4:27 PM [facility] 56- Basophils % 0.0 0.0 - 2.0 % 06/11/2024 4:27 PM [facility] 56- Absolute Neutrophils 3.42 1.80 - 7.70 K/uL 06/11/2024 4:27 PM EST [facility] 56- Absolute Lymphocytes 0.34(L) 1.00 - 4.80 K/ul 06/11/2024 4:27 PM [facility] 56- Absolute Monocytes 0.18 0.00 - 1.10 K/uL 06/11/2024 4:27 PM [facility] 56 Absolute Eosinophils 0.00 0.00 - 0.70 K/uL 06/11/2024 4:27 PM [facility] Absolute Basophils 0.00 0.00 - 0.20 K/uL 06/11/2024 4:27 PM [facility] 56 Blood Venous blood specimen / Unknown Venipuncture / Unknown 06/11/2024 3:54 PM EST 06/11/2024 3:54 PM EST us Leon Napier MD LAB BLOOD ORDERABLES Fin al Result [facility] [address] [place] [address] * (ABNORMAL) CBC (06/11/2024 3:54 PM EST) WBC 3.94(L) 4.00 - 10.80 K/uL 06/11/2024 4:27 PM EST [facility] 56 RBC 3.11 3.85 - 5.15 M/uL 06/11/2024 4:27 PM [facility] HGB 10.5(L) 12.0 - 15.3 g/dL 06/11/2024 4:27 PM [facility] HCT 31.7(L) 36.0 - 45.2 % 06/11/2024 4:27 PM EST [facility] MCV 101.9 81.5 - 97.5 fL 06/11/2024 4:27 PM EST [facility] 56 MCH 33.8 27.0 - 34.0 pg 06/11/2024 4:27 PM EST [facility] MCHC 33.1 32.0 - 36.0 g/dL 06/11/2024 4:27 PM EST [facility] RDW 15.2 11.5 - 15.5 % 06/11/2024 4:27 PM EST [facility] PLT 88(L) 140 - 400 K/uL 06/11/2024 4:27 PM EST [facility] Comment: Consistent with previous results. MPV 10.5 6.6 - 11.1 fL 06/11/2024 4:27 PM EST [facility] Blood Venous blood specimen / Unknown Venipuncture / Unknown 06/11/2024 3:54 PM EST 06/11/2024 3:54 PM EST Leon Napier MD LAB BLOOD ORDERABLES Fin al Result [facility] [address] [place] [address] * (ABNORMAL) COMPREHENSIVE METABOLIC PANEL (06/11/2024 3:54 PM EST) BUN 19 6 - 20 mg/dL 06/11/2024 4:15 PM EST [facility] CREATININE 1.0 0.5 - 1.0 mg/dL 06/11/2024 4:15 PM EST [facility] EGFR 54(L) >=60 mL/min 06/11/2024 4:15 PM EST [facility] Comment:eGFR is calculated b ased on the CKD-EPI 2020 equation. SODIUM 129(L) 135 - 146 mmol/L 06/11/2024 4:15 PM EST [facility] POTASSIUM 4.3 3.5 - 5.1 mmol/L 06/11/2024 4:15 PM [facility] 56 CHLORIDE 101 98 - 107 mmol/L 06/11/2024 4:15 PM [facility] 56 CO2 15(L) 22 - 32 mmol/L 06/11/2024 4:15 PM [facility] 56 ANION GAP 13 7 - 15 mmol/L 06/11/2024 4:15 PM [facility] 56 GLUCOSE 100 70 - 120 mg/dL 06/11/2024 4:15 PM [facility] 56 Albumin 2.6(L) 3.8 - 5.0 g/dL 06/11/2024 4:15 PM [facility] 56 AST 44(H) 10 - 35 U/L 06/11/2024 4:15 PM [facility] 56 Comment:Result may be falsel y elevated due to hemolysis. Alkaline Phosphatase 99 35 - 130 U/L 06/11/2024 4:15 PM [facility] 56 Bilirubin, Total 0.5 <=1.2 mg/dL 06/11/2024 4:15 PM [facility] 56 CALCIUM 8.1(L) 8.4 - 10.2 mg/dL 06/11/2024 4:15 PM [facility] 56 Protein 9.0(H) 6.0 - 8.3 g/dL 06/11/2024 4:15 PM [facility] 56 ALT 17 10 - 35 U/L 06/11/2024 4:15 PM [facility] 56 Blood Venipuncture / Unknown 06/11/2024 3:54 PM EST 06/11/2024 3:54 PM EST us Kenrick Frankel DO LAB BLOOD ORDERABLES Melania nakul Result [facility] [address] [place] [address] documented in this encounter Visit Diagnoses Diagnosis Senile osteoporosis S/P AVR (aortic valve replacement) Heart valve replaced by other means Paroxysmal atrial fibrillation (HCC) Atrial fibrillation Diastolic CHF, chronic (HCC) Chronic diastolic heart failure S/P aortic valve replacement Heart valve replaced by other means Hyponatremia Hyposmolality and/or hyponatremia Multiple myeloma, remission status unspecified (HCC) documented [...] and were consensually agreed upon. Care Teams Tractor Mechanic Relationship Specialty Start Date End Date Eliazar Reis MD [address] [facility] [place] [address] PCP - General Family Medicine 09/02/20 documented as of this encounter
--- OUTSIDE RECORDS SUMMARY | 2024-06-19 11:03 | External Medical Summary ---
Author Name Unknown Address Unknown Organization [id number] [place] [address] Laboratory Report Ordering Provider Test Date Status SEAN BETTS 06/11/2024 15:54:09 Final Observation Date Value Abnormality Reference (Units ) Status SYNC LEUKOCYTES IN BLOOD BY AUTOMATED COUNT 06/11/2024 15:54:09 3.94 Below low normal 4.00-10.80 (K/uL) Final Segs 06/11/2024 15:54:09 86.8 Above high normal 40.0-75.0 (%) Final Lymphs % 06/11/2024 15:54:09 8.6 Below low normal 18.0-42.0 (%) Final Monos 06/11/2024 15:54:09 4.6 1.0-11.0 (%) Final Eosinophils 06/11/2024 15:54:09 0.0 0.0-6.0 (%) Final Basos 06/11/2024 15:54:09 0.0 0.0-2.0 (%) Final Absolute Segs 06/11/2024 15:54:09 3.42 1.80-7.70 (K/uL) Final Lymphs, absolute 06/11/2024 15:54:09 0.34 Below low normal 1.00-4.80 (K/ul) Final Monos, Abs 06/11/2024 15:54:09 0.18 0.00-1.10 (K/uL) Final Eos, Abs 06/11/2024 15:54:09 0.00 0.00-0.70 (K/uL) Final Basos, Abs 06/11/2024 15:54:09 0.00 0.00-0.20 (K/uL) Final Performing Location [facility] [place] [address]
--- OUTSIDE RECORDS SUMMARY | 2024-06-19 11:03 | External Medical Summary ---
Author Name Unknown Address Unknown Organization K[facility] [place] [address] Laboratory Report Ordering Provider Test Date Status SEAN BETTS 06/11/2024 15:54:09 Final Observation Date Value Abnormality Reference (Units ) Status WBC, Total 06/11/2024 15:54:09 3.94 Below low normal 4. 00-10.80 (K/uL) Final RBC 06/11/2024 15:54:09 3.11 3.85-5.15 (M/uL) Final Hemoglobin 06/11/2024 15:54:09 10.5 Below low normal 12 .0-15.3 (g/dL) Final HCT 06/11/2024 15:54:09 31.7 Below low normal 36. 0-45.2 (%) Final MCV 06/11/2024 15:54:09 101.9 81.5-97.5 (fL) Final MCH 06/11/2024 15:54:09 33.8 27.0-34.0 (pg) Final MCHC 06/11/2024 15:54:09 33.1 32.0-36.0 (g/dL) Final RDW 06/11/2024 15:54:09 15.2 11.5-15.5 (%) Final Platelets 06/11/2024 15:54:09 88 Below low normal 140 -400 (K/uL) Final Consistent with previous res ults. MPV 06/11/2024 15:54:09 10.5 6.6-11.1 ( fL) Final Performing Location [facility] [place] [address]
--- OUTSIDE RECORDS SUMMARY | 2024-06-19 11:03 | External Medical Summary | Summary of Care ---
Author Name Unknown Organization [facility] Address [address] [place] [address] Phone [phone] Care Team Providers [employer] Company Laundry Worker Name Role Phone Eliazar Reis MD Primary Care Provider [phone] Reason for Referral * Precert (Within 10 days (routine)) - Authorized Specialty Diagnoses / Procedures Referred By Minh najera Referred To Contact Radiology Diagnoses Multiple myeloma, remission status unspecified (HCC) Procedures PET CT SKULL BASE TO MID-THIGH FDG Leon Napier MD [address] [place] [address] Phone: tel: fax: Referral ID Status Reason Start Date Expiration Date V isits Requested Visits Authorized [id number] Authorized 06/18/2024 999 999 Reason for Visit * Reason Comments NEW PATIENT * Evaluate & Treat - Unlimited Visits (Within 10 days (routine)) - Authorized Specialty Diagnoses / Procedures Referred By Minh najera Referred To Contact Hematology/Oncology / Hematology Oncology Diagnoses MGUS (monoclonal gammopathy of unknown significance) Eliazar Reis MD [address] [place] [id number] Phone: tel: fax: Referral ID Status Reason Start Date Expiration Date Visits Requested Visits Authorized [id number] Authorized Specialty Services Required 05/25/2024 999 999 Encounter Details Date Type Department Care Team ([facility] st Contact Info) Description 06/11/2024 3:00 PM EST Office Visit Hematology/Oncology [place] [facility] [place] [address] [facility] [place] [address] Leon Napier MD [address] [facility] [place] [address] Multiple myeloma, remission status unspecified (HCC)* Allergies Active Allergy Reactions Criticality Noted Date [...] g 3 03/11/20 23 Active Polymyxin B-Trimethoprim 15104-9.1 UNIT/ML-% Ophthalmic Solution (Polytrim) INSTILL 1 DROP [...] Overview (02/18/2020): 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 Increased risk for Hereditary Hemochromatosis. 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 Not on file Not on file Not on file documented as of this encounter Last Filed Vital Signs Vital Sign Reading Time Taken Comments Blood Pressure 126/68 06/11/2024 2:51 PM EST Pulse 100 06/11/2024 2:51 PM EST Temperature 38.2 C (100.8 F) 06/11/2024 2:[address] Respiratory Rate - - Oxygen Saturation 89% 06/11/2024 2:51 PM EST Inhaled Oxygen Concentration - - Weight 57.2 kg (126 lb) 06/11/2024 2:51 PM EST Height 154.9 cm (5' 1") 06/11/2024 2:51 PM EST Body Mass Index 23.81 06/11/2024 2:51 PM EST documented in this encounter Functional [...] Casey Schuler RN documented in this encounter Progress Notes * Leon Napier MD - 06/11/2024 3:00 PM EST Outpatient Consult Note Data Source: Patient, Epic record. 06/11/2024 3:00 PM Shannon Salazar [id number] 88 year old MD Eliazar Rosenbaum MD Patient Encounter: HEMATOLOGY/ONCOLOGY [facility] Reason for consult: MGUS (monoclonal gammopathy of unknown significance) HPI: 88-year-old female with a history of multiple medical problems including hypertension, hyperlipidemia, paroxysmal atrial fibrillation s/p left atrial appendage ligation [not on anticoagulation], chronic diastolic CHF, pulmonary HTN, moderate TR, GERD, urge incontinence, generalized osteoarthritis, age- related osteoporosis, monoclonal gammopathy of unknown significance (MGUS), severe s/p AV replacement in 2017, paraesophageal hernia s/p surgical repair referred with the above diagnosis. She was admitted hospital on 04/23/2024 with complaint of generalized weakness, fatigue and confusion. Patient had last blood test done 04/25/2024 which shows IgG level of 4738, IgA level was 13.8 and IgM was less than 20. Lambda light chain level was 2623 in the kappa was 12.7. Last CBC was done on 06/06/2024 which shows WBC count of 4.57, hemoglobin 9.9 and platelet count 116. MCV was 103 and RDW was 15.6. Sodium was 133 and rest of the electrolytes in acceptable range with a creatinine of 1.1 and normal calcium level. Total protein level was elevated 9.2 and albumin level was 2.8. During the hospitalization she also had elevated calcium level. She was treated with Zometa, calcitonin and IV hydration with normalization of the calcium level. Last CBC done on 05/24/2024 which shows WBC count of 3.96, hemoglobin 9.2 and platelet count 33452.Creatinine was 1 and the rest of the electrolytes including calcium were within acceptable range. DEXA bone density scan was done on 11/29/2022 and the risk of fracture was high. She was diagnosed of MGUS about 4 years ago in [place], [place] and also had bone marrow biopsydone which was consistent with MGUS. She was followed by Hematology. Last echocardiogram was done on 12/06/2023 which shows ejection fraction of 55% which is stable. She is complaining generalized weakness, fatigue, poor appetite. History of smoking or drinking alcohol. Family history significant for mother was diagnosed of breast cancer, father was diagnosed of bladder cancer and maternal two aunts were diagnosed of breast cancer. 04/25/2024 IgG 4738.3 (635-1741 mg/dl) IgA 13.8 (70-400 mg/dl) IgM <20 (45-281 mg/dl) Free Enterprise 12.7 3.3-19.4 mg/L Free Lambda 2623.4 H | 5.7-26.3 mg/L Free Werner/Mccarthy Rat <0.01 L | 0.26-1.65 Immunofixation is consistent with a IgG lambda monoclonal band. Past Medical History: Diagnosis Date Age-related osteoporosis without current pathological fracture 12/07/2022 DDD (degenerative disc disease), lumbar s/p surgery Diastolic CHF, chronic (HCC) 04/07/2021 Dyslipidemia 06/18/2016 Dyslipidemia, goal LDL below 130 06/18/2016 Fuchs' corneal dystrophy 06/18/2016 Gastroesophageal reflux disease 06/18/2016 Gastroesophageal reflux disease without esophagitis 06/18/2016 Generalized osteoarthritis 07/27/2021 Hiatal hernia 07/23/2020 History of nephrolithiasis 06/18/2016 HTN, goal below 140/90 06/18/2016 MGUS (monoclonal gammopathy of unknown significance) Moderate tricuspid regurgitation 10/17/2022 Obesity, Class I, BMI 30.0-34.9 (see actual BMI) 04/06/2021 Overweight (BMI 25.0-29.9) 02/15/2022 Primary osteoarthritis of left knee 06/18/2016 Pulmonary hypertension (HCC) 10/17/2022 Severe aortic stenosis by prior echocardiogram 07/01/2016 Urge incontinence of urine 07/23/2020 Current Outpatient Medications Medication Sig Dispense Refill [...] the morning. with food.. 90 Tablet 3 prednisoLONE Acetate 1 % Ophthalmic Suspension (Pred Forte) Instill 1 Drop into both eyes in the morning and 1 Drop at noon and 1 Drop before bedtime. (Patient taking differently: Instill 1 Drop intoboth eyes in the morning.) 45 mL 3 Systane 0.4-0.3 % Ophthalmic Solution (Artificial [...] of water or juice. 850 g 3 Polymyxin B-Trimethoprim 13383-1.1 UNIT/ML-% Ophthalmic Solution (Polytrim) INSTILL 1 DROP FOUR TIMES A DAY RIGHT EYE - BEGIN 3 DAYS BEFORE SURGERY (Patient not taking: Reported on 06/11/2024) Gemtesa 75 MG Oral Tablet (Vibegron) Take 1 Tablet by mouth in the morning. 30 Tablet 11 Ondansetron 4 MG Oral Tablet Disintegrating (Zofran) Place 1 Tablet on tongue every 8 hours as needed for Nausea. dissolve on tongue. 20 Tablet 1 Calcium 500 MG Oral Tablet Take 1 Tablet by mouth in the morning. (Patient not taking: Reported on 06/11/2024) Metoprolol Succinate ER 25 MG Oral Tablet [...] 1 TABLET AT BEDTIME 270 Tablet 2 Pravastatin Sodium 80 MG Oral Tablet Take 1 Tablet by mouth every evening. 90 Tablet 3 Spironolactone 25 MG Oral Tablet (Aldactone) TAKE ONE-HALF TABLET BY MOUTH IN THE MORNING 45 Tablet1 Oseltamivir Phosphate 75 MG Oral Capsule (Tamiflu) Take 1 Capsule by mouth in the morning for 10 days. For 10 days.. (Patient not taking: Reported on 06/11/2024) 10 Capsule 0 No current facility-administered medications for this visit. 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 (Adult - for ages 18 years and over): No Does your family have trouble paying for medicine? (Household - for ages 0-17 years): Not on file Food Insecurity: No Food Insecurity (05/30/2024) Food Insecurity Worried About Running Out of Food in the Last Year: Never true Ran Out of Food in the Last Year: Never true Do you need food for this week? (Adult - for ages 18 years and over): No Transportation Needs: No Transportation Needs (05/30/2024) Transportation Needs Do you have trouble getting a ride to medical visits or work? (Adult - for ages 18 years and over):Not on file Does your family have a hard time getting a ride to doctors visits? (Household - for ages 0-17 years): Not on file Has lack of transportation kept you from medical appointments, meetings, work, or from getting things needed for daily living? Check all that apply. (Adult - for ages 18 years and over): No Do you (or your family) have trouble finding or paying for a ride (transportation)? (Household - for ages 0-17 years): Not on file Social Connections: Socially Isolated (05/30/2024) Social Connections How often do you feel lonely or isolated from those around you? (Adult - for ages 18 years and over): Often Housing Stability: Low Risk (05/30/2024) Housing Stability Do you currently live in a intermediate or have no steady place to sleep at night? (Adult - for ages 18 years and over): No Do you think you are at risk of becoming homeless? (Adult - for ages 18 years and over): Not on file Does your family worry about paying for your home or becoming homeless? (Household - for ages 0-17 years): Not on file Are you homeless or worried that you might be in the future? (Adult - for ages 18 years and over): No Are you (or your family) homeless or worried that you might be in the future? (Household - for ages0-17 years): Not on file Family History Problem Relation Name Age of Onset Cancer Mother breast Diabetes Mother Cancer Father bladder Renal Hx Father solitary kidney Arthritis Brother knee replacement Cataracts Brother Blindness Aunt (Unspecified) REVIEW OF SYSTEMS: General: No Fever, chills, night sweats HEENT: No change in visual acuity, blurred or double vision. No epistaxis, facial pain, nasal discharge or change in hearing. Denies dysphagia, no muscosal ulceration, or sores noted. Cardiovascular: No chest pain, GARCIA, or palpitations Respiratory: No shortness of breath, cough, hemoptysis, or pleuritic chest pain Gastrointestinal: No abdominal pain, nausea, vomiting, diarrhea, rectal pain or bleeding Genitourinary: Denies Hematuria or dysuria Musculoskeletal: Pain in the lower chest and upper abdomen Psychiatric: No vegetative signs of depression Endocrine: No symptoms of hypothyroidism or hyperglycemia Hematologic: No bleeding or lymph nodes noted As mentioned above, all other systems were reviewed in full and are unremarkable. Review of patient's allergies indicates: Allergen Reactions Oxaprozin Psych complications depression Other Reaction(s): MAKES FEEL DEPRESSED Simvastatin Other (Please comment) Critical liver lab results Other Reaction(s): ELEVATED LIVER ENZYMES PHYSICAL EXAMINATION: General Appearance: Weak, cachetic appearing patient in no acute distress, in wheelchair, PS=4 BP 126/68 (BP Site: Left Arm, BP Position: Sitting, BP Cuff Size: Pediatric) | Pulse 100 | Temp (!)38.2 C (100.8 F) (Tympanic) | Ht 1.549 m (5' 1") | Wt 57.2 kg (126 lb) | SpO2 89% | BMI 23.81 kg/m | BSA 1.57 m Vitals were reviewed. HEENT: No oral or pharyngeal masses, ulceration or thrush noted, no sinus tenderness. Neck is supple with no thyromegaly or JVD noted. Lymph Nodes: No lymphadenopathy noted in the occipital, pre and post auricular, cervical, supra andinfraclavicular, axillary, epitrochlear, inguinal, and popliteal region. Lungs/Thorax: Clear to auscultation, no accessory muscles of respiration being used. Heart: Regular rate and rhythm, normal S1, S2. Abdomen: Soft, bowel sounds present, no appreciable hepatosplenomegaly, no palpable masses, tenderness on the lower chest cage on palpation Extremeties: Good pulses bilaterally, no peripheral edema. ASSESSMENT: 88-year-old female with a history of multiple medical problems including hypertension, hyperlipidemia, paroxysmal atrial fibrillation s/p left atrial appendage ligation [not on anticoagulation], chronic diastolic CHF, pulmonary HTN, moderate TR, GERD, urge incontinence, generalized osteoarthritis, age- related osteoporosis, monoclonal gammopathy of unknown significance (MGUS), severe s/p AV replacement in 2017, paraesophageal hernia s/p surgical repair referred with a diagnosis of MGUS. She was diagnosed of MGUS about 4 years ago and was followed by the bibliographic services specialist. She also had bone marrow biopsy and aspirate done and according to daughter was consistent with MGUS. She would not follow hematology regularly. She was recently admitted to the hospital with generalized weakness, confusionand was found to have elevated calcium level with the elevated IgG and lambda light chain level. She was treated with calcitonin plus Zometa and IV hydration with normalization of the calcium. Based on the available information, she most likely has IgG lambda multiple myeloma. She need further workup including bone marrow biopsy and aspirate, PET scan and repeat blood test. Discussed with the patient and 2 daughters about diagnosis and reviewed all the available blood test result with them. After detailed discussion they decided proceed with the workup. PLAN: As above. She will return clinic for follow-up in 2 weeks. The patient voiced understanding of all of the above. All questions and concerns were addressed in an apparently satisfactory manner. Leon Napier MD (This note was completed using the dictation program Fluency Direct. As such, there may be misspellings, word substitutions, or other variations that should not change the essence of the clinical content of this encounter note. If there is need for further clarification, please direct questions to me.) documented in this encounter Nursing Notes * Carolann Steward MED ASSIST - 06/11/2024 2:54 PM EST Patient identifed by name and birthdate Do you have any concerns about pain management for today's visit? Yes. Patient instructed to discuss pain concerns with provider during the visit today Living Will or Advance Directive for Health Care as noted on the problem list. [employer] is a way you can talk to your provider on line through e-mail. Would you like to sign up? I can activate it for you? ALREADY ACTIVE Filed Vitals: 06/11/24 1451 BP: 126/68 Pulse: 100 Temp: (!) 38.2 C (100.8 F) TempSrc: Tympanic SpO2: 89% Weight: 57.2 kg (126 lb) Height: 1.549 m (5' 1") Patient was instructed to not get up on the exam table/exam chair until directed and assisted by their provider; patient is to remain seated in the chair/ wheelchair/ exam table/ exam chair for fall prevention and safety reasons. Patient is aware to have assistance to step down off exam table/exam chair with personnel. Patient voiced full comprehension of instructions. Pt reports having pain in the right side. Daughter thinks it is due to coughing. Also has weak legsand is unable to get around. Pt had the flu last week and has a current temp of 100.8 documented in this encounter Plan of Treatment Upcoming Encounters Date Type Department Care Team (Late st Contact Info) Description 06/20/2024 10:45 AM EDT Imaging Radiology, [facility] [place] [address] 06/25/2024 4:00 PM EDT Office Visit Hematology/Oncology [place]iah [place] [address] [facility] [place] [phone] Leon Napier MD [address] [place] [address] 07/20/2024 10:40 AM EDT Office Visit Rheumatology [facility] [address] [place] [phone] Juan Pablo Rebolledo MD [facility] [place] [address] 09/12/2024 11:00 AM EDT Office Visit Urology Matias Small [address] [place] [address] Kayla Rick PA-C [address] [place] [address] 09/21/2024 1:20 PM EDT Office Visit Family Practice [facility] [address] [facility] [place] [address] Eliazar Reis MD [address] [facility] [place] [address] 12/24/2024 3:30 PM EDT Office Visit Cardiology, [facility] [address] [place] [address] Pollo Meyer MD [address] [place] [address] Pending Results Name Type Priority Associated Diagnoses Date /Time [id number], SERUM Lab Routine Multiple myeloma, remission status unspecified ([facility]) 06/11/2024 3:54 PM EST IMMUNOGLOBULIN QUANTITATIVE Lab Routine Multiple myeloma, remission status unspecified ([facility]) 06/11/2024 3:54 PM EST SERUM FREE LIGHT CHAINS Lab Routine Multiple myeloma, remission status unspecified ([facility]) 06/11/2024 3:54 PM EST SERUM PROTEIN ELECTROPHORESIS REFLEX PROFILE Lab Routine Multiple myeloma, remission status unspecified ([facility]) 06/11/2024 3:54 PM EST SERUM IMMUNOFIXATION Lab Routine Multiple myeloma, remission status unspecified (HCC) 06/11/2024 3:54 PM EST Scheduled Orders Name Type Priority Associated Diagnoses Orde r Schedule PET CT SKULL BASE TO MID-THIGH FDG Medical Imaging Routine Multiple myeloma, remission status unspecified (HCC) Expected: 06/18/2024, Expires: 07/12/2025 [id number], SERUM Lab Routine Multiple myeloma, remission status unspecified (HCC) Expected: 06/11/2024, Expires: 06/11/2025 IMMUNOGLOBULIN QUANTITATIVE Lab Routine Multiple myeloma, remission status unspecified (HCC) Expected: 06/11/2024, Expires: 06/11/2025 SERUM FREE LIGHT CHAINS Lab Routine Multiple myeloma, remission status unspecified (HCC) Expected: 06/11/2024, Expires: 06/11/2025 SERUM PROTEIN ELECTROPHORESIS REFLEX PROFILE Lab Routine Multiple myeloma, remission status unspecified (HCC) Expected: 06/11/2024, Expires: 06/11/2025 SERUM IMMUNOFIXATION Lab Routine Multiple myeloma, remission status unspecified (HCC) Expected: 06/11/2024, Expires: 06/11/2025 IR BIOPSY Medical Imaging Routine Multiple myeloma, remission status unspecified (HCC) Ordered: 06/11/2024 Health Maintenance Due Date Last Done Comments Adult Wellness Visit 03/11/2022 03/11/2021 Fasting Serum Ferritin Hereditary Hemochromatosis (HFE) Annual,All Ages 06/17/2022 06/17/2021 COVID-19 Vaccine (8 - 2023- 5 season) 2024 12/30/2023, 03/26/2023, 02/15/2022, [...] D LEVEL ONCE IN A LIFETIME-USE SMARTSET# [id number] Completed 07/08/2023, 12/07/2022, 08/05/2022, Additional history exists [...] this encounter Medical Devices Implanted Type Area Video Software Engineer Device Identifier Shelf Expiration Date Model / Serial / Lot Sut Steel 6 [id number] - [id number] Implanted:Qty : 4 on 09/09/2016 by John Olvera MD at [place] [facility] – [place] N/A: Chest JNJ : [employer] 05/11/2021 [id number] / / [id number] Atriclip 35mm [id number] - [id number] Implanted:Qty : 1 on 09/09/2016 by John Olvera MD at OR [facility] – [place] N/A: Heart ATRICURE 08/09/2018 [id number] / / [id number] Valve Heart Aortic Epic 23mm - [id number] - [id number] Implanted:Qty : 1 on 09/09/2016 by John Olvera MD at OR [facility] – [place] N/A: Aorta ST LESA : CARDIOVASCULAR 02/03/2020 [id number] / [id number] / Allomax Mesh 2 X 4 [id number] - [id number] - [id number] Implanted:Qty : 1 on 12/10/2020 by Jenny Brooks MD at OR [facility] – [place] N/A: Abdomen CR BARD : DAVOL 03/10/2025 [id number] / [id number] / [id number] Description:PEH documented as of this encounter Visit Diagnoses Diagnosis Multiple myeloma, remission status unspecified (HCC)- Primary documented in this encounter Advance Directives [...] and were consensually agreed upon. Care Teams Company Laundry Worker Relationship Specialty Start Date End Date Eliazar Reis MD [address] [place] [address] PCP - General Family Medicine 09/02/20 documented as of this encounter
--- OUTSIDE RECORDS SUMMARY | 2024-06-19 11:03 | External Medical Summary ---
Author Name Unknown Address Unknown Organization K09:[facility] [place] [address] Laboratory Report Ordering Provider Test Date Status ELISE PLASCENCIA 06/11/2024 15:54:09 Final Observation Date Value Abnormality Reference (Units ) Status BUN 06/11/2024 15:54:09 19 6-20 (mg/dL) Final Creatinine 06/11/2024 15:54:09 1.0 0.5-1.0 (mg/dL) Final Glomerular filtration rate/1.73 sq M.predicted [Volume Rate/Area] in Serum, Plasma or Blood by Creatinine-based formula (CKD-EPI) 06/11/2024 15:54:09 54 Below low normal >=60 (mL/min) Final eGFR is calculated based on the CKD-EPI 2020 equation. Sodium 06/11/2024 15:54:09 129 Below low normal 135 -146 (mmol/L) Final Potassium 06/11/2024 15:54:09 4.3 3.5-5.1 (m mol/L) Final Cl 06/11/2024 15:54:09 101 98-107 (mm ol/L) Final CO2 06/11/2024 15:54:09 15 Below low normal 22- 32 (mmol/L) Final Anion gap 06/11/2024 15:54:09 13 7-15 (mmol /L) Final Glucose 06/11/2024 15:54:09 100 70-120 (mg /dL) Final Albumin 06/11/2024 15:54:09 2.6 Below low normal 3.8 -5.0 (g/dL) Final AST (Aspartate aminotransferase) 06/11/2024 15:54:09 44 Above high normal 10-35 (U/L) Final Result may be falsely elevat ed due to hemolysis. Alk Phos 06/11/2024 15:54:09 99 35-130 (U/ L) Final Bilirubin, Total 06/11/2024 15:54:09 0.5 <=1 .2 (mg/dL) Final Calcium 06/11/2024 15:54:09 8.1 Below low normal 8.4 -10.2 (mg/dL) Final Protein 06/11/2024 15:54:09 9.0 Above high normal 6. 0-8.3 (g/dL) Final ALT (Alanine aminotransferase) 06/11/2024 15:54:09 17 10-35 (U/L) Albert hardy Performing Location [facility] [address] [place] [address]
--- OUTSIDE RECORDS SUMMARY | 2024-06-19 11:03 | External Medical Summary ---
Author Name Unknown Address Unknown Organization K01[facility] [place] [address] [facility] [address] Laboratory Report Ordering Provider Test Date Status SEAN BETTS 06/11/2024 15:54:09 Final Observation Date Value Abnormality Reference (Units ) Status Brogan light chains, Free, Serum 06/11/2024 15:54:09 38.78 Above high normal 3.30-19.40 (mg/L) Final Decreased kidney function ca n cause an increase in serum Brogan Free Light Chains. For individuals with decreased kidney function, the following reference intervals apply:

eGFR 45-59: 7.8-83.6 mg/L
eGFR 30-44: 8.8-103.3 mg/L
eGFR <30: 11.7-265.1 mg/L Lambda light chains, free, Serum 06/11/2024 15:54:09 3236.00 Above high normal 5.71-26.30 (mg/L) Final Decreased kidney function ca n cause an increase in serum Lambda Free Light Chains. For individuals with decreased kidney function, the following reference intervals apply:

eGFR 45-59: 7.3-65.1 mg/L
eGFR 30-44: 8.2-73.2 mg/L
eGFR <30: 12.6-150.9 mg/L KAPPA LAMBDA FLC RATIO 06/11/2024 15:54:09 0.01 Below l ow normal 0.26-1.65 Final Decreased kidney function ca n cause an increase in serum Free Light Chain Ratio. For individuals with decreased kidney function, the following reference intervals apply:
eGFR 45-59: 0.46-2.62
eGFR 30-44: 0.48-3.38
eGFR <30: 0.54-3.30 Performing Location [facility] [place] [address] [facility] [address]
--- OUTSIDE RECORDS SUMMARY | 2024-06-19 11:03 | External Medical Summary | Summary of Care ---
Author Name Unknown Organization [facility] Address [address] [place] [address] Phone [phone] Care Team Providers Care Director Of Golf Name Role Phone Eliazar Reis MD Primary Care Provider [phone] Encounter Details Date Type Department Care Team (Late st Contact Info) Description 06/11/2024 Telephone Hematology/Oncology [facility] [address] [place] [phone] Leon Napier MD [address] [place] [address] Allergies Active Allergy Reactions Criticality Noted Date [...] g 3 03/11/20 23 Active Polymyxin B-Trimethoprim 32988-9.1 UNIT/ML-% Ophthalmic Solution (Polytrim) INSTILL 1 DROP [...] Overview (02/18/2020): 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 Not on file Not on file [...] Miscellaneous Notes * Telephone Encounter - Radha Newberry OSA - 06/11/2024 3:39 PM EST IR BIOPSY [IRBIOPSY] (Order [id number]) documented in this encounter Plan of Treatment Upcoming Encounters Date Type Department Care Team (Late st Contact Info) Description 06/20/2024 10:45 AM EDT Imaging Radiology, [address] [place] [id number] 06/25/2024 4:00 PM EDT Office Visit Hematology/Oncology [facility] [address] [facility] [place] [phone] Leon Napier MD [address] [facility] [place] [address] 07/20/2024 10:40 AM EDT Office Visit Rheumatology [facility] [address] [place] [phone] Juan Pablo Rebolledo MD [facility] [place] [address] 09/12/2024 11:00 AM EDT Office Visit Urology Matias Small [address] [place] [address] Kayla Rick PA-C [address] [place] [address] 09/21/2024 1:20 PM EDT Office Visit Family Practice [facility] [address] [place] [address] Eliazar Reis MD [address] [place] [address] 12/24/2024 3:30 PM EDT Office Visit Cardiology, [facility] [place] [address] Pollo Meyer MD [address] [place] [address] Health Maintenance Due Date Last Done Comments Adult Wellness Visit 03/11/2022 03/11/2021 Fasting Serum Ferritin Hereditary Hemochromatosis (HFE) Annual,All Ages 06/17/2022 06/17/2021 COVID-19 Vaccine (2023- 5 season) 2024 12/30/2023, 03/26/2023, 02/15/2022, Additional [...] D LEVEL ONCE IN A LIFETIME-USE SMARTSET# [id number] Completed 07/08/2023, 12/07/2022, 08/05/2022, Additional history exists [...] this encounter Medical Devices Implanted Type Area Assistant Manager Device Identifier Shelf Expiration Date Model / Serial / Lot Sut Steel 6 [id number] - [id number] Implanted:Qty : 4 on 09/09/2016 by John Olvera MD at [place] [facility] N/A: Chest JNJ : [employer] 05/11/2021 [id number] / / [id number] Atriclip 35mm [id number] - [id number] Implanted:Qty : 1 on 09/09/2016 by John Olvera MD at OR [facility] N/A: Heart ATRICURE 08/09/2018 [id number] / / [id number] Valve Heart Aortic Epic 23mm - [id number] - [id number] Implanted:Qty : 1 on 09/09/2016 by John Olvera MD at OR [facility] N/A: Aorta [facility] : CARDIOVASCULAR 02/03/2020 [id number] / [id number] / Allomax Mesh 2 X 4 [id number] - [id number] - [id number] Implanted:Qty : 1 on 12/10/2020 by Jenny Brooks MD at OR [facility] N/A: Abdomen CR BARD : DAVOL 03/10/2025 [id number] / [id number] / [id number] Description:PEH documented as of this encounter Advance [...] and were consensually agreed upon. Care Teams Director Of Golf Relationship Specialty Start Date End Date Eliazar Reis MD [address] [place] [address] PCP - General Family Medicine 09/02/20 documented as of this encounter
--- OUTSIDE RECORDS SUMMARY | 2024-06-19 11:03 | External Medical Summary ---
Author Name Unknown Address Unknown Organization : Laboratory Report Ordering Provider Test Date Status SEAN BETTS 06/11/2024 15:54:09 Final Observation Date Value Abnormality Reference (Units ) Status Beta-2 Microglobulin 06/11/2024 15:54:09 15.70 Above high normal <=2.51 (mg/L) Final Test Performed at:
[facility]
[address] [facility]
[place] [address]
Armando Nunez M.D., Ph.D.,Director of Laboratories Performing Location
--- OUTSIDE RECORDS SUMMARY | 2024-06-19 11:03 | External Medical Summary ---
Author Name Unknown Address Unknown Organization K01:[facility] - [address] [place] [address] Laboratory Report Ordering Provider Test Date Status SEAN BETTS 06/11/2024 15:54:09 Final Observation Date Value Abnormality Reference (Units ) Status IgG 06/11/2024 15:54:09 4074 Above high normal 70 0-1600 (mg/dL) Final IgA 06/11/2024 15:54:09 14 Below low normal 70- 400 (mg/dL) Final IgM 06/11/2024 15:54:09 8 Below low normal 40- 230 (mg/dL) Final Performing Location [facility] - [address] [place] [address]
--- OUTSIDE RECORDS SUMMARY | 2024-06-19 11:03 | External Medical Summary ---
Author Name Unknown Address Unknown Organization K01:[facility] [place] [address] [facility] [address] Laboratory Report Ordering Provider Test Date Status EVIE PEÑALOZA 06/11/2024 15:54:09 Final Observation Date Value Abnormality Reference (Units ) Status Bilirubin, Direct 06/11/2024 15:54:09 0.2 0. 0-0.3 (mg/dL) Final Performing Location [facility] - [address] [facility] [address]
--- OUTSIDE RECORDS SUMMARY | 2024-06-19 11:03 | External Medical Summary ---
Author Name Unknown Address Unknown Organization K09:[facility] [place] [address] Laboratory Report Ordering Provider Test Date Status SEAN BETTS 06/11/2024 15:54:09 Final Observation Date Value Abnormality Reference (Units ) Status Nucleated erythrocytes/100 leukocytes [Ratio] in Blood by Automated count 06/11/2024 15:54:09 Final Performing Location [facility] [place] [address]
--- OUTSIDE RECORDS SUMMARY | 2024-06-19 11:03 | External Medical Summary ---
Author Name Unknown Address Unknown Organization K01:[facility]ATORY [facility] [place] - [address] [facility] [address] Laboratory Report Ordering Provider Test Date Status SEAN BETTS 06/11/2024 15:54:09 Final Observation Date Value Abnormality Reference (Units) Status PARAPROTEIN NORMAL/ABNORMAL 06/11/2024 15:54:09 Abnormal Abnormal Normal Final Immunofixation for Serum or Plasma 06/11/2024 15:54:09 A monoclonal IgG lambda gammopathy is present. Final Performing Location LABORATORY [facility] - [address] [facility] [address]
--- OUTSIDE RECORDS SUMMARY | 2024-06-19 11:03 | External Medical Summary ---
Author Name Unknown Address Unknown Organization K01:[facility] - [address] [facility] [address] Laboratory Report Ordering Provider Test Date Status SEAN BETTS 06/11/2024 15:54:09 Final Observation Date Value Abnormality Reference (Units) Status PARAPROTEIN NORMAL/ABNORMAL 5 15:54:09 Abnormal Abnormal Normal Final Protein 5 15:54:09 8.3 6.0-8.3 (g/dL) Final Albumin/Protein.tota l [Pure mass fraction] in Serum or Plasma by Electrophoresis 5 15:54:09 2.41 Below low normal 3.30-4.40 (g/dL) Final Alpha 1 globulin/Protein.tot al [Pure mass fraction] in Serum or Plasma by Electrophoresis 5 15:54:09 0.41 Above high normal 0.10-0.30 (g/dL) Final Alpha 2 globulin/Protein.tot al [Pure mass fraction] in Serum or Plasma by Electrophoresis 5 15:54:09 1.09 Above high normal 0.60-1.00 (g/dL) Final Beta globulin/Protein.tot al [Pure mass fraction] in Serum or Plasma by Electrophoresis 5 15:54:09 0.79 Below low normal 0.80-1.30 (g/dL) Final Gamma globulin/Protein.tot al [Pure mass fraction] in Serum or Plasma by Electrophoresis 5 15:54:09 3.60 Above high normal 0.70-1.70 (g/dL) Final Monoclonal protein 5 15:54:09 3.17 (g/dL) Final Protein Fractions [Interpretation] in Serum or Plasma by Electrophoresis Narrative 5 15:54:09 Abnormal. A paraprotein is present. Appropriate studies including quantitative immunoglobulins, serum free light chains, and serum immunofixation have been ordered in follow up. See serum immunofixation results. Urine immunofixation recommended in follow Final Protein Fractions [Interpretation] in Serum or Plasma by Electrophoresis Narrative 5 15:54:09 up if clinically indicated. Final Performing Location [facility] - [facility] [address] [facility] [address]
--- OUTSIDE RECORDS SUMMARY | 2024-06-19 11:03 | External Medical Summary ---
Author Name Unknown Address Unknown Organization K01:[facility]ORY [facility] [place] - [address] [place] [address] Laboratory Report Ordering Provider Test Date Status ROLLY MIRANDA 06/11/2024 15:54:09 Final Deficient: <20 ng/mL
Ins ufficient: 20-29 ng/mL
Recommended/Optimum:30-50 ng/mL

Vitamin D intoxication is rare. If suspicious of Vitamin D toxicity, evaluation of serum Calcium and PTH is recommended. Observation Date Value Abnormality Reference (Units ) Status 25-OH Vitamin D total 06/11/2024 15:54:09 38 >19 (ng/mL) Final Performing Location [facility] - [address] [place] [address]
--- NOTE | 2024-06-19 11:12 | History & Physical Report ---
Date of Service June 19, 2024 Assessment & Plan (1) AMS (altered mental status): (2) Pneumonia involving left lung: Plan: Shannon Salazar is an 88y/o F with PMHx significant for HLD, HTN, PAF s/p left atrial appendage ligation [not on anticoagulation], chronic diastolic CHF, pulmonary HTN, moderate TR, GERD, urge incontinence, generalized osteoarthritis, age-related osteoporosis, monoclonal gammopathy of unknown significance (MGUS), severe s/p AV replacement in 2017, paraesophageal hernia s/p surgical repair, SUZETTE and benign paroxysmal vertigo who presented to the ED via EMS from [facility] due to increased confusion, vomiting and cough. Patient A&Ox2 but an overall poor historian with intermittent periods of forgetfulness. No leukocytosis however procalcitonin slightly bumped at 0.73; lactate negative. RVP + for influenza A (likely residual, low suspicion for reinfection). CXR with new left basilar infiltrate suspicious for PNA, moderate gaseous distention of the stomach and chronic cardiomegaly with pulmonary vascular congestion. Head CT unremarkable. S/p IV cefepime + Flagyl in the ED. Also received a total of 1L NSS in the ED. No evidence of sepsis on admission; VSS. No recorded hypoxic episodes. Found covered in vomit this morning at the facility. Suspect aspiration PNA. Continue ABX coverage with IV cefepime + po doxycycline for now. Follow blood cultures. Obtain sputum culture as able. Albuterol nebs PRN. Probiotic added on. Droplet precautions for now. Was seen and evaluated by speech therapy back in April when she was previously admitted this year. Had video swallow study done at that time which revealed mild pharyngeal stage dysphagia but no aspiration or significant pharyngeal retention. Known esophageal dysfunction. Passed bedside dysphagia screening. Easy to chew diet ordered per previous recommendation by speech therapy. Aspiration precautions. Fall precautions. Appreciate reevaluation by speech therapy. (3) History of urinary retention: (4) Pardo catheter in place prior to arrival: (5) Catheter-associated urinary tract infection: Plan: UA notable for infection with 3+ LE, >50 WBC and 4+ bacteria. Urine culture pending. Pardo catheter exchanged in the ED today. Recently seen and evaluated in the ED on 06/06/24 and diagnosed with influenza A and CAUTI. She was discharged home with a course of oral cephalexin. Has chronic indwelling Pardo catheter due to history of urinary retention; Pardo catheter present upon arrival to ED today. Urine culture from 06/06/24 grew Enterobacter cloacae complex with documented resistance to cefotaxime, ceftriaxone, nitrofurantoin and Zosyn. Urine culture showed sensitivity to cefepime, amikacin, ciprofloxacin, gentamicin, Levaquin, meropenem, tobramycin and Bactrim. S/p IV cefepime + IV Flagyl in the ED. Will continue ABX coverage with IV cefepime + po doxycycline for now pending urine culture results. (6) Wound of sacral region: Plan: Noted sacral pressure wound on exam; not directly visualized, covered with protective bandaging. Wound care consulted for assistance. Q2H repositioning. (7) Chronic diastolic CHF (congestive heart failure): Plan: Resting echocardiogram from 11/2023 noted moderately increased concentric LV wall thickness, normal LV wall motion, LVEF = 55-59%, severe biatrial enlargement, severe mitral annular calcification, moderately calcified mitral valve leaflets, moderate mitral regurgitation, severe tricuspid regurgitation and mildly elevated pulmonary artery systolic pressure of 45-50mmHg. Euvolemic, somewhat dry on exam at time of admission. S/p 1L NSS in the ED. Hold home diuretics for now. Daily weights, I&Os. (8) Venous stasis dermatitis of both lower extremities: Plan: Follows with [facility]. AmLactin cream ordered. (9) Chronic anemia: Plan: Stable, Hgb 10.6 (baseline Hgb around 9-11) on admission. Continue to monitor H/H. Stopped taking iron supplement as directed by PCP. (10) Paroxysmal atrial fibrillation: Plan: Follows with [facility] cardiology. S/p left atrial appendage ligation. Currently rate-controlled. Not on anticoagulation s/p left atrial appendage ligation procedure 2/2 frequent falls and bleeding risk. Can continue home metoprolol succinate and amiodarone. Telemetry monitoring on board. (11) MGUS (monoclonal gammopathy of unknown significance): Plan: Had an appointment with Dr. Napier on 06/11/24. Most likely has IgG lambda multiple myeloma based on recent lab evaluation. Was to have a PET scan tomorrow. Also was set to undergo bone marrow biopsy on 06/21/24. Family inquiring about getting this rescheduled as soon as possible. (12) History of hypercalcemia: Plan: Previously admitted under our service this past April with generalized weakness, confusion and was found to have elevated calcium level with the elevated IgG and lambda light chain level. Was treated with calcitonin plus Zometa and IV hydration with normalization of the calcium. Calcium level WNL on admission. Was started on calcium supplementation by PCP last week - can continue. (13) Prolonged QT interval: Plan: Prolonged QTc of 504ms on EKG today. Hold mirtazapine for now. Repeat EKG daily x 2 to monitor QTc interval. Avoid QT-prolonging agents as able. Other Chronic Medical Conditions: Chronic Thrombocytopenia - Platelet count 93k (baseline around 70-100k). HLD/Seasonal Allergies/GERD - Continue home medications for these specific conditions. DVT Prophylaxis: SQ Heparin Code Status: DNR/DNI - As per thorough discussion with the patient and her daughters at bedside in the ED. PCP: Eliazar Reis MD Disposition: Admit to Med/Telemetry for further inpatient evaluation and management. Obtain PT/OT evaluations. Patient's daughter, Karin, would like routine updates. She can be reached at [phone]. Family extremely upset with the care she has been receiving at [facility]. Family requests eventual placement at a different facility, refuses to have her go back to [facility]. Patient seen in collaboration with Dr. Schneider. Please see addendum. I spent a total of 65 minutes coordinating, documenting, and providing care for this patient excluding time spent in the performance of separately billed services or time spent by another provider/QHP. This included personally reviewing all current laboratories and imaging studies, medical reconciliation, outpatient chart review and discussion with specialists. This chart was completed in part utilizing Speech Voice Recognition Software. Grammatical errors, random word insertions, pronoun errors, and incomplete sentences are an occasional consequence of this system due to software limitations, ambient noise, and hardware issues. Any formal questions or concerns about the content, text, or information contained within the body of this dictation should be directly addressed to the provider for clarification. History of Present Illness Chief Complaint: Increased confusion, vomiting & cough Primary Care Provider: Eliazar Reis MD Shannon Salazar is an 88y/o F with PMHx significant for HLD, HTN, PAF s/p left atrial appendage ligation [not on anticoagulation], chronic diastolic CHF, pulmonary HTN, moderate TR, GERD, urge incontinence, generalized osteoarthritis, age-related osteoporosis, monoclonal gammopathy of unknown significance (MGUS), severe s/p AV replacement in 2017, paraesophageal hernia s/p surgical repair, SUZETTE and benign paroxysmal vertigo who presented to the ED via EMS from [facility] due to increased confusion, vomiting and cough. Majority of history ob tained from family at bedside, discussion with ED provider, documentation provided by [facility] and associated chart review. Patient A&Ox2 with direct questioning but is a poor historian overall. Unable to correctly recall month and year. Able to state her daughters' (both at bedside) names and knows she is at [facility]. Of note, patient's eldest daughter sadly last evening. Recently seen and evaluated in the ED on 06/06/24 and diagnosed with influenza A and CAUTI. She was discharged home with a course of oral cephalexin. Has chronic indwelling Pardo catheter due to history of urinary retention; Pardo catheter present upon arrival to ED today. Urine culture from 06/06/24 grew Enterobacter cloacae complex with documented resistance to cefotaxime, ceftriaxone, nitrofurantoin and Zosyn. Urine culture was however though to show sensitivity to cefepime, amikacin, ciprofloxacin, gentamicin, Levaquin, meropenem, tobramycin and Bactrim. Patient was found lying in her recliner this morning covered in vomit at [facility] by 2 of her daughters. She has been alert and conversive with her daughters since being found however they mention she does seem intermittently confused with periods of forgetfulness and more lethargic than usual. No reported blood in her vomit. Staff at [facility] did note an elevated temporal temperature of 100.3F this morning. Patient with no complaints except for productive cough. Denies any SOB or chest pain. No reported bouts of diarrhea; patient deals with constipation at baseline. Has indwelling Pardo catheter in place due to issues with urinary retention. UA notable for infection with 3+ LE, >50 WBC and 4+ bacteria. Urine culture pending. Pardo catheter exchanged in the ED today. S/p IV cefepime + Flagyl in the ED. Also received a total of 1L NSS in the ED. No evidence of sepsis on admission; VSS. No recorded hypoxic episodes. Initial laboratory evaluation notes Hgb 10.6 (baseline Hgb around 9-11) and platelet count 93k (baseline platelet count around 70-100k). No leukocytosis however procalcitonin slightly bumped at 0.73; lactate negative. Na 134, calcium level WNL. RVP + for influenza A. Head CT unremarkable. CXR with new left basilar infiltrate suspicious for PNA, moderate gaseous distention of the stomach and chronic cardiomegaly with pulmonary vascular congestion. Family extremely upset with the care she has been receiving at [facility]. Family requests eventual placement at a different facility, refuses to have her go back to [facility]. Unfortunately patient has developed a sacral pressure wound while at the facility. Patient was previously discharged to [facility] following her prior admission back in May but was then discharged to [facility] after a few weeks. Reportedly she failed repeat voiding trials at both facilities. Family found her Pardo bag opened and spilling onto the floor next to her this morning. She does have a cough which has been ongoing since she was diagnosed with influenza A last month in the ED on 06/06/24. Her cough has been productive of whitish to yellow-colored phlegm since it started last month. She was having some nausea/vomiting when she was initially diagnosed with influenza A last month as previously mentioned, but this had resolved over a course of a few days. Today is the first time she has vomited in a little over a week. There have been times where the patient adamantly refuses to take her medications at [facility]. Did not take her medications this morning. Daughters do not recall her having issues with swallowing food at the facility. She typically tolerates an easy to chew diet without much issue. They have, however, noticed a steady decline in her appetite since being diagnosed with influenza A last month. Allergies Allergy/AdvReac Type Severity Reaction Status Date / Time simvastatin AdvReac Severe ELEVATED Verified 06/19/24 10:41 LIVER ENZYMES oxaprozin AdvReac Intermediate MAKES FEEL Verified 06/19/24 10:41 DEPRESSED Home Medications Medication Instructions Recorded Confirmed Type pravastatin 80 mg tablet 80 mg PO HS 07/15/20 06/19/24 History prednisolone acetate 1 % eye 1 drp OPB DAILY 07/15/20 06/19/24 History drops,suspension acetaminophen 500 mg tablet 1,000 mg PO BID PRN Pain 06/13/21 06/19/24 History (Tylenol Extra Strength) ascorbic acid (vitamin C) 500 mg 500 mg PO QAM 06/13/21 06/19/24 History tablet (Vitamin C) fexofenadine 180 mg tablet 180 mg PO HS 07/06/21 06/19/24 History metoprolol succinate 25 mg 12.5 mg PO QAM 08/07/21 06/19/24 History tablet,extended release 24 hr aspirin 81 mg tablet,delayed 81 mg PO QAM 09/30/22 06/19/24 History release potassium chloride 10 mEq 10 meq PO TID 09/30/22 06/19/24 History tablet,extended release(part/cryst) (Klor-Con M) spironolactone 25 mg tablet 12.5 mg (1/2 x 25 mg) PO DAILY #30 10/05/22 06/19/24 Rx tabs ondansetron 4 mg disintegrating 4 mg PO Q6H PRN Nausea/Vomiting 04/25/23 06/19/24 History tablet amiodarone 200 mg tablet 200 mg PO QAM 01/26/24 06/19/24 History docusate sodium 100 mg capsule See Rx Instructions .Route .COMPLEX 04/23/24 06/19/24 History (Colace) furosemide 20 mg tablet 20 mg PO DAILY PRN Leg 04/23/24 06/19/24 History Swelling/Weight Gain psyllium husk 0.4 gram capsule 0.4 g PO DAILY 04/23/24 06/19/24 History (Metamucil) famotidine 20 mg tablet 20 mg PO DAILY PRN Indigestion 04/29/24 06/19/24 History calcium carbonate 500 mg PO DAILY 06/19/24 06/19/24 History carboxymethylcellulose sodium 1 % 1 drp ophthalmic (eye) BID PRN Dry 06/19/24 06/19/24 History eye liquid gel drops Eyes magnesium oxide 500 mg capsule 500 mg PO DAILY 06/19/24 06/19/24 History mirtazapine 15 mg tablet 15 mg PO HS 06/19/24 06/19/24 History Past Med/Surg History Problem List (Updated 06/19/24 @ 17:32 by Art Braun MD) Thrombocytopenia (Acute) Anemia (Acute) Catheter-associated urinary tract infection (Acute) Left lower lobe pneumonia (Acute) Altered mental status (Acute) Prolonged QT interval History of hypercalcemia MGUS (monoclonal gammopathy of unknown significance) Chronic anemia Venous stasis dermatitis of both lower extremities Wound of sacral region History of urinary retention Pardo catheter in place prior to arrival Pneumonia involving left lung UTI (urinary tract infection) (Acute) Influenza A (Acute) Catheter-associated urinary tract infection Acute hyponatremia (Acute) Acute UTI (Acute) AMS (altered mental status) (Acute) Acute confusion due to infection Suspected UTI Age-related cognitive decline Dysphagia Chest wall contusion Hypomagnesemia Frequent falls Hypercalcemia (Acute) Chronic venous insufficiency (Chronic) Traumatic open wound of lower leg (Acute) Hypokalemia Generalized weakness (Acute) Acute on chronic heart failure with preserved ejection fraction (HFpEF) Elevated troponin (Acute) Hypoxia (Acute) CHF (congestive heart failure) (Acute) Nausea (Acute) Surgical wound, non healing (Acute) Venous insufficiency of both lower extremities (Chronic) Infected hematoma (Acute) Infected wound Syncope Cellulitis of leg, right DVT prophylaxis Thrombocytopenia Anemia Hematoma Laceration of lip (Acute) Ambulatory dysfunction (Acute) Acute knee pain (Acute) Fall (Acute) Paroxysmal atrial fibrillation (Acute) controlled w/ meds Dr Meyer Chronic diastolic CHF (congestive heart failure) Medical History Chest pain MGUS (monoclonal gammopathy of unknown significance) Seasonal allergies Incontinence of urine Nausea and vomiting after administration of anesthetic agent History of COVID-19 2020- no hosp; resolved GERD (gastroesophageal reflux disease) Surgical History Hx of cardiac catheterization ~2018, prior to valve replacement, no stents History of esophagogastroduodenoscopy (EGD) Hx of colonoscopy H/O: hysterectomy S/P repair of paraesophageal hernia History of total knee arthroplasty S/P aortic valve replacement with bioprosthetic valve ~2018- [facility] Family History Other Cancer Diabetes Social History Smoking Status: Former smoker Second Hand Exposure: No; Do You Dip or Chew Tobacco: No; Hx Alcohol Use: No Hx Substance Use: No Preferred Language: [place] Communication Ability: Effective Visual Impairment: Severely Limited Hearing Ability: Hard of Hearing Radiographic Technologist Required: No Beliefs That Will Affect Care: None marital status: / Current Living Situation: Personal Care Facility Current Living Situation Comment: [facility] current occupational status: retired How many Children do You have: 3 How many Children do You have Comment: all able to assist with care Other Information That Helps Us Care for You: No Feels Safe at Home: Yes Safety Concerns: Feels Safe At This Time Diet: regular caffeine: Yes during the past year weight has: remained stable Assistive Devices: Walker Review of Systems Review of Systems: At least ten systems reviewed and negative, except as noted in the HPI. Physical Exam Physical Exam: General: Thin/elderly F, sitting up in bed. Sleepy but easily arousable. A+Ox2 to location and person. Unable to recall month, day of week or year. HEENT: Normocephalic, atraumatic. Conjunctivae normal. External ear and nose normal. Oropharynx appears somewhat dry. Respiratory: Normal respiratory effort. Coarse breath sounds heard throughout, + rhonchi in LLL. No expiratory wheezing. NAD on RA. Cardiovascular: Regular rate. Irregularly irregular rhythm. + ESM over precordium and aortic area. No BLE edema. + BLE venous stasis dermatitis. Abdomen/GI: Normal bowel sounds, soft, nondistended, nontender to palpation in all quadrants. : Pardo catheter intact and draining clear, yellow urine without issue. Pardo catheter exchanged in the ED. Extremities/Musculoskeletal: Extremities motor strength intact, actively moves all extremities. Generalized bruising involving the extremities. Neurologic: No overt focal deficits, CN's II-XI not formally tested but appear grossly intact bilaterally. Skin: + sacral pressure sores covered in bandaging, did not directly visualize wounds. Results & Data Results & Data Vital Signs (Past 12 Hours) Vital Signs Temp Pulse Resp BP Pulse Ox O2 Del Method 06/19/24 10:30 124/63 06/19/24 10:30 68 18 91 06/19/24 10:21 83 14 94 06/19/24 10:15 85 20 92 06/19/24 10:13 71 06/19/24 10:09 71 21 91 06/19/24 10:00 141/78 H 06/19/24 09:59 36.6 C 73 20 133/83 94 Room Air 06/19/24 09:58 95 Room Air 06/19/24 09:57 136/91 06/19/24 09:54 84 19 95 06/19/24 09:45 71 20 97 06/19/24 09:39 69 24 06/19/24 09:28 133/83 Laboratory Results Short CBC 06/19/24 Range/Units 09:55 WBC 7.43 (4.8-10.8) K/ul Hgb 10.6 L (12.0-16.0) g/dl Hct 31.5 L (37.0-47.0) % Plt Count 93 L (130-400) K/uL BMP 06/19/24 09:55 Sodium 134 L Potassium 4.2 Chloride 109 H Carbon Dioxide 21 BUN 15 Creatinine 0.86 Glucose 90 Calcium 8.6 Liver Function 06/19/24 06/19/24 Range/Units 09:55 10:30 Total Bilirubin 0.6 (0.2-1.0) mg/dl Direct Bilirubin TNP 0.0 AST 15 (13-39) U/L ALT 10 (7-52) U/L Alkaline Phosphatase 74 (34-104) U/L Albumin 2.7 L (3.4-5.0) gm/dl Urine 06/19/24 Range/Units 09:40 Urine Color Yellow Urine Appearance Turbid A (Clear) Urine pH 5.5 (4.5-7.5) Ur Specific [place] 1.015 (1.000-1.030) Urine Protein 2+ H (Negative) Urine Glucose (UA) Negative (Negative) Diagnostic Findings Chest X-Ray 06/19/24 09:58 XR chest 1V portable CLINICAL HISTORY: Sepsis COMPARISON STUDY: 05/28/2024 FINDINGS: There is a new, patchy airspace opacity in the left lung base. There is also increased reticular markings in the upper lobes bilaterally right greater than left. The heart remains enlarged with pulmonary vascular congestion. There is no pleural effusion or pneumothorax. There is moderate gaseous distention of the stomach. IMPRESSION: New left basilar infiltrate suspicious for pneumonia. Chronic cardiomegaly and pulmonary vascular congestion. Moderate gaseous distention of the stomach. ACT 112: Negative or not required by law. Electronically signed by: Eden Torres M.D. 06/19/2024 10:19 AM Medications Administered Discontinued Medications Sodium Chloride (Nss) 1,000 mls @ 999 mls/hr IV .Q1H1M STEPHANIE Stop: 06/19/24 11:00 Last Admin: 06/19/24 10:33 Dose: 999 mls/hr Documented By: GRAHAM Cefepime HCl (Maxipime 2000mg) 2,000 mg in 20 mls @ 5 mls/min IV NOW STA; Protocol Stop: 06/19/24 10:01 Last Admin: 06/19/24 10:32 Dose: 5 mls/min Documented By: GRAHAM Ondansetron HCl (Ondansetron Inj 2 Mg/Ml 2 Ml Vial) 4 mg IV NOW STA Stop: 06/19/24 10:02 Last Admin: 06/19/24 10:32 Dose: 4 mg Documented By: GRAHAM Code Status & VTE Plan Code Status DNR/DNI - No Resuscitation Supervising Physician Co-Signing Physician Notes Attending Addendum: Case reviewed with the advanced practitioner. I have personally performed a history and physical examination on the patient. I have reviewed the advanced practitioner's documentation on the date of service referenced in note, and I agree with, and take responsibility for the plan of care. please refer to her notes for full details patient seen and examined, records reviewed by myself as well on exam, patient seen resting in bed, patient's daughter Karin Coreas at the bedside visiting Patient states she feels okay just very tired Has occasional productive cough No shortness of breath Denies abdominal pain, flank pain or back pain no other symptoms VS noted and reviewed oriented x2 , not in distress, speaks in sentences with no effort nor accessory muscle use Normal rate regular rhythm, no murmurs Mild crackles at the bases, no wheezing non distended, soft, nontender Positive small superficial sacral wound noted, no surrounding erythema, no tenderness no bipedal edema, erythema, warmth no Gross focal neuro deficits all labs, imaging noted and reviewed ASSESSMENT AND PLAN Confusion, likely metabolic encephalopathy secondary to catheter associated UTI,Recurrent, and Pneumonia, healthcare associated versus aspiration component UA highly suggestive of UTI Chest x-ray: IMPRESSION: New left basilar infiltrate suspicious for pneumonia. Chronic cardiomegaly and pulmonary vascular congestion. Follow-up Urine, blood, sputum culture Empiric cefepime plus doxycycline Catheter changed at the ER MGUS, rule out multiple myeloma Being worked up by Dr. Napier as an outpatient SPEP, Ig levels obtained Plan is for PET scan, bone marrow biopsy per daughter's Patient's family concerned about results of blood work for multiple myeloma workup. They are wondering if patient will still need PET scan and or bone marrow biopsy. Please reach out to Dr. Napeir for recommendations. Thank you. other diagnoses and plan of care as per advanced practitioner's notes I spent a total of 40 minutes coordinating, documenting, and providing care for this patient, excluding time spent in the performance of separately billed services or time spent by another provider/QHP. Noah Schneider MD (1) AMS (altered mental status) Altered mental status type: unspecified Qualified Code(s): R41.82 - Altered mental status, unspecified (2) Pneumonia involving left lung Lung location: lower lobe of lung Pneumonia type: due to unspecified organism Qualified Code(s): J18.9 - Pneumonia, unspecified organism (5) Catheter-associated urinary tract infection Encounter type: subsequent encounter Indwelling urinary catheter type: indwelling urethral catheter Qualified Code(s): T83.511D - Infection and inflammatory reaction due to indwelling urethral catheter, subsequent encounter; N39.0 - Urinary tract infection, site not specified (6) Wound of sacral region Encounter type: sequela Qualified Code(s): S31.000S - Unspecified open wound of lower back and pelvis without penetration into retroperitoneum, sequela
[2024-06-19] MEDS: metroNIDAZOLE 500 MG/100 ML BAG IV STA (11:17)
--- NOTE | 2024-06-19 13:09 | CT Scan Report ---
CT OF THE HEAD WITHOUT CONTRAST CLINICAL HISTORY: Confusion. COMPARISON STUDY: Head CT May 13, 2024. CT DOSE: 625.8 mGy.cm TECHNIQUE: Helical axial images of the head were obtained without IV contrast. Automated exposure con trol was utilized for the study. A dose lowering technique was utilized adhering to the principles o f ALARA. FINDINGS: No acute intracranial hemorrhage, midline shift or mass effect is present. The ventricular system is stable. Prominence of the extra-axial spaces due to atrophy is unchanged. 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 The basal cisterns are patent. No extra-ax ial collections are present. There are no findings to suggest acute dural sinus thrombosis or acute t erritorial infarct. No significant calvarial abnormalities are present. There is a small air-fluid le jessica within the left maxillary sinus. IMPRESSION: No acute intracranial findings. No change in appearance of the brain. ACT 112: Negative or not required by law. Electronically signed by: Osei Rae M.D. 06/19/2024 1:08 PM
[2024-06-19] MEDS ORDERED: POLYETHYLENE (MIRALAX) 17 GM PACK PO PRN (13:49)
[2024-06-19] MEDS ORDERED: ACETAMINOPHEN 325 MG TAB PO PRN (13:49)
[2024-06-19] MEDS ORDERED: MAGNESIUM HYDROXIDE SUSP 30 ML UDC PO PRN (13:49)
[2024-06-19] MEDS ORDERED: FAMOTIDINE 20 MG TAB PO PRN (13:49)
[2024-06-19] MEDS ORDERED: ALBUTEROL 0.083% NEBU SOLN 3 ML VIAL NEB PRN (13:49)
[2024-06-19] MEDS ORDERED: ARTIFICIAL TEARS OP PRN (14:01)
[2024-06-19 14:07] VITALS: RESP 18
[2024-06-19] MEDS: AMMONIUM LACTATE 12% LOTION 225 GM BTL EXT SCH (16:02)
[2024-06-19] MEDS: ADVANCED PROBIOTIC 625 MG CAPSULE PO SCH (16:03)
[2024-06-19] MEDS: HEPARIN SOD 5,000 UNIT/0.5 ML VIAL SQ SCH (21:52)
[2024-06-19] MEDS: DOCUSATE SODIUM 100 MG CAP PO SCH (21:53)
[2024-06-19] MEDS: DOXYCYCLINE HYCLATE 100 MG CAP PO SCH (21:53)
[2024-06-19] MEDS: CEFEPIME 2000MG 2,000 MG/20 ML SYR IV SCH (21:53)
[2024-06-19] MEDS: PRAVASTATIN SOD 40 MG TAB PO SCH (21:54)
[2024-06-19] MEDS: FEXOFENADINE HCL 180 MG TAB PO SCH (21:54)
--- NOTE | 2024-06-20 06:34 | Electrocardiogram Report ---
Test Reason : Blood Pressure : */* mmHG Vent. Rate : 71 BPM Atrial Rate : * BPM P-R Int : * ms QRS Dur : 160 ms QT Int : 464 ms P-R-T Axes : * -49 35 degrees QTcB Int : 504 ms Atrial fibrillation Right bundle branch block Left anterior fascicular block Bifascicular block Minimal voltage criteria for LVH, may be normal variant ( R in aVL ) Abnormal ECG When compared with ECG of 28-May-2024 05:10, T wave inversion no longer evident in Anterior leads Confirmed by Butch Strange ([id number]) on 06/20/2024 6:34:14 AM Referred By: Confirmed By: Butch Strange
[2024-06-20 07:00] LABS: Hematocrit (blood only) 29.6 % (37.0-47.0); Hemoglobin 9.4 g/dl (12.0-16.0); Mean Corpuscular Hemoglobin 32.3 pg (25.0-34.0); Mean Corpuscular Hgb Conc 31.8 g/dL (32.0-36.0); Mean Corpuscular Volume 101.7 fL (80.0-100.0); Mean Platelet Volume 11.4 fL (9.4-12.4); Platelet Count 66 K/uL (130-400); RDW Coefficient of Variation 15.5 % (11.5-14.5); RDW Standard Deviation 56.7 fL (36.4-46.3); Red Blood Count 2.91 M/uL (4.20-5.40)
[2024-06-20 07:47] LABS: BUN Creatinine Ratio 16.1 (10-20); Calcium 7.8 mg/dl (8.6-10.3); Magnesium 1.7 mg/dl (1.7-2.4); Potassium 3.4 mmol/L (3.5-5.1)
--- NOTE | 2024-06-20 08:21 | Hospitalist Progress Note ---
Date of Service June 20, 2024 Assessment & Plan (1) AMS (altered mental status): (2) Pneumonia involving left lung: (3) History of urinary retention: (4) Pardo catheter in place prior to arrival: (5) Catheter-associated urinary tract infection: (6) Wound of sacral region: (7) Chronic diastolic CHF (congestive heart failure): (8) Venous stasis dermatitis of both lower extremities: (9) Chronic anemia: (10) Paroxysmal atrial fibrillation: (11) MGUS (monoclonal gammopathy of unknown significance): (12) History of hypercalcemia: (13) Prolonged QT interval: Plan Shannon Salazar is an 88 year old woman with PMHx significant for HLD, HTN, PAF s/p left atrial appendage ligation [not on anticoagulation], chronic diastolic CHF, pulmonary HTN, moderate TR, GERD, urge incontinence, generalized osteoarthritis, age-related osteoporosis, monoclonal gammopathy of unknown significance (MGUS), severe s/p AV replacement in 2017, paraesophageal hernia s/p surgical repair, SUZETTE and benign paroxysmal vertigo who presented to the ED via EMS from [facility] due to increased confusion, vomiting and cough and admitted for concern of pneumonia and CAUTI #Acute toxic metabolic encephalopathy #Left basilar Pneumonia POA #Influenza A Infection #Cauti POA 2/2 enterobacter cloacae UA notable for infection with 3+ LE, >50 WBC and 4+ bacteria. Urine culture pending. Pardo catheter exchanged in the ED today. Recent flu, risk for aspiration v superimposed bacterial pneumonia UA from 06/06 with 2 species of enterobacter cloacae UA from 06/19 with multiple lucero S/p IV cefepime + IV Flagyl in the ED. Continue Cefepime and doxy for now (unable to tolerate po will switch to IV) #Wound of sacral region POA Noted sacral pressure wound on admission, Wound care consulted for assistance. Q2H repositioning. #Acute on Chronic diastolic CHF (congestive heart failure): Resting echocardiogram from 11/2023 noted moderately increased concentric LV wall thickness, normal LV wall motion, LVEF = 55-59%, severe biatrial enlargement, severe mitral annular calcification, moderately calcified mitral valve leaflets, moderate mitral regurgitation, severe tricuspid regurgitation and mildly elevated pulmonary artery systolic pressure of 45-50mmHg. BNP elevated with vascular congestion on imaging trial of x1 lasix now with k replacement # Venous stasis dermatitis of both lower extremities: Follows with [facility]. AmLactin cream ordered. #MGUS c/f MM #Chronic pancytopenia: Stable, Hgb 10.6 (baseline Hgb around 9-11) on admission. Continue to monitor H/H. Stopped taking iron supplement as directed by PCP. Platelet count downtrending iso infection, CTM Had an appointment with Dr. Napier on 06/11/24. Most likely has IgG lambda multiple myeloma based on recent lab evaluation--plan for further op follow up #Paroxysmal atrial fibrillation: Follows with [facility] cardiology. S/p left atrial appendage ligation. Currently rate-controlled. Not on anticoagulation s/p left atrial appendage ligation procedure 2/2 frequent falls and bleeding risk. Can continue home metoprolol succinate and amiodarone. Telemetry monitoring on board. #History of hypercalcemia: Previously admitted under our service this past April with generalized weakness, confusion and was found to have elevated calcium level with the elevated IgG and lambda light chain level. Was treated with calcitonin plus Zometa and IV hydration with normalization of the calcium. Calcium level WNL on admission. Was started on calcium supplementation by PCP last week - can continue. #Prolonged QT interval: Prolonged QTc of 504ms on EKG today. Hold mirtazapine for now. Repeat EKG daily x 2 to monitor QTc interval. Avoid QT-prolonging agents as able. Other Chronic Medical Conditions: HLD/Seasonal Allergies/GERD - Continue home medications for these specific condi tions. DVT Prophylaxis:scds Code Status: DNR/DNI PCP: Eliazar Reis MD Disposition: dispo contingent on clinical improvement anticipated in next 24-48 hours Discussion with daughter had at bedside regarding care plan and concerns for disposition I spent a total of 65 minutes coordinating, documenting, and providing care for this patient excluding time spent in the performance of separately billed services. All of the aforementioned completed while collaborating with the assigned attending physician for a full treatment plan. Please see their addendum for further details. Admission and Anticipated Discharge Date Admission Date: June 19, 2024 Subjective NAEO Reports feeling poorly still, endorses dry cough ongoing with occasional sputum Denies fevers, suprapubic pain, CVA tenderness, or other symptoms Physical Exam Constitutional: chronically ill appearing woman Respiratory: diminished bilaterally with central rhonchi Gastrointestinal (Abdomen): normal bowel sounds, soft, nontender, no hepatosplenomegaly Musculoskeletal: thin frail, moving appropriately Results & Data Results & Data Vital Signs (Past 12 Hours) Vital Signs Temp Pulse Pulse Resp BP Pulse Ox O2 Del Method 06/20/24 07:54 Room Air 06/20/24 07:30 36.4 C L 72 18 141/73 H 96 Room Air 06/20/24 03:44 36.4 C L 65 18 128/76 94 Room Air 06/20/24 00:33 36.6 C 69 18 115/71 94 Room Air 06/19/24 21:45 76 Laboratory Results Short CBC 06/20/24 Range/Units 06:26 WBC 4.60 L (4.8-10.8) K/ul Hgb 9.4 L (12.0-16.0) g/dl Hct 29.6 L (37.0-47.0) % Plt Count 66 L (130-400) K/uL BMP 06/20/24 06:26 Sodium 138 Potassium 3.4 L Chloride 113 H Carbon Dioxide 22 BUN 14 Creatinine 0.87 Glucose 70 Calcium 7.8 L Medications Administered Home Medications Medication Instructions Recorded Confirmed Last Taken pravastatin 80 mg tablet 80 mg PO HS 07/15/20 06/19/24 09/30/22 prednisolone acetate 1 % eye 1 drp OPB DAILY 07/15/20 06/19/24 09/30/22 08:00 drops,suspension acetaminophen 500 mg tablet 1,000 mg PO BID PRN Pain 06/13/21 06/19/24 08/07/21 (Tylenol Extra Strength) ascorbic acid (vitamin C) 500 mg 500 mg PO QAM 06/13/21 06/19/24 09/30/22 tablet (Vitamin C) fexofenadine 180 mg tablet 180 mg PO HS 07/06/21 06/19/24 09/29/22 metoprolol succinate 25 mg 12.5 mg PO QAM 08/07/21 06/19/24 04/25/23 08:30 tablet,extended release 24 hr aspirin 81 mg tablet,delayed 81 mg PO QAM 09/30/22 06/19/24 Unknown release potassium chloride 10 mEq 10 meq PO TID 09/30/22 06/19/24 09/30/22 08:00 tablet,extended release(part/cryst) (Klor-Con M) spironolactone 25 mg tablet 12.5 mg (1/2 x 25 mg) PO DAILY #30 10/05/22 06/19/24 Unknown tabs ondansetron 4 mg disintegrating 4 mg PO Q6H PRN Nausea/Vomiting 04/25/23 06/19/24 04/23/23 tablet amiodarone 200 mg tablet 200 mg PO QAM 01/26/24 06/19/24 Unknown docusate sodium 100 mg capsule See Rx Instructions .Route .COMPLEX 04/23/24 06/19/24 Unknown (Colace) furosemide 20 mg tablet 20 mg PO DAILY PRN Leg 04/23/24 06/19/24 Unknown Swelling/Weight Gain psyllium husk 0.4 gram capsule 0.4 g PO DAILY 04/23/24 06/19/24 Unknown (Metamucil) famotidine 20 mg tablet 20 mg PO DAILY PRN Indigestion 04/29/24 06/19/24 Unknown calcium carbonate 500 mg PO DAILY 06/19/24 06/19/24 Unknown carboxymethylcellulose sodium 1 % 1 drp ophthalmic (eye) BID PRN Dry 06/19/24 06/19/24 06/18/24 eye liquid gel drops Eyes magnesium oxide 500 mg capsule 500 mg PO DAILY 06/19/24 06/19/24 Unknown mirtazapine 15 mg tablet 15 mg PO HS 06/19/24 06/19/24 Unknown Active Medications Generic Name Dose Route Start Last Admin Trade Name Freq PRN Reason Stop Dose Admin Aspirin 81 mg 06/20/24 09:00 06/20/24 09:24 Aspirin 81 Mg Ectab PO 07/20/24 08:59 81 mg QAM STEPHANIE Administration Calcium Carbonate 1 tab 06/20/24 09:00 06/20/24 09:25 Calcium Carbonate 1250mg Tab PO 07/20/24 08:59 1 tab DAILY STEPHANIE Administration Docusate Sodium 200 mg 06/20/24 09:00 06/20/24 09:31 Docusate Sodium 100 Mg Cap PO 07/20/24 08:59 200 mg DAILY STEPHANIE Administration Docusate Sodium 100 mg 06/19/24 21:00 06/19/24 21:53 Docusate Sodium 100 Mg Cap PO 07/19/24 20:59 100 mg HS STEPHANIE Administration Doxycycline Hyclate 100 mg 06/19/24 21:00 06/20/24 09:31 Doxycycline Hyclate 100 Mg Cap PO 06/24/24 20:59 100 mg BID STEPHANIE Administration Fexofenadine HCl 180 mg 06/19/24 21:00 06/19/24 21:54 Fexofenadine Hcl 180 Mg Tab PO 07/19/24 20:59 180 mg HS STEPHANIE Administration Cefepime HCl 2,000 mg in 20 mls @ 5 mls/min 06/19/24 22:00 06/19/24 21:53 Maxipime 2000mg IV 06/24/24 21:59 5 mls/min Q12H STEPHANIE Administration Protocol Potassium Chloride 10 meq in 100 mls @ 100 mls/hr 06/20/24 10:00 06/20/24 11:51 K Edu / Wtr IV 06/20/24 13:59 100 mls/hr Q1H STEPHANIE Administration Lactic Acid 1 gm 06/19/24 14:00 06/19/24 21:54 Ammonium Lactate 12% Lotion 225 Gm Btl EXT 07/19/24 13:59 1 gm TID STEPHANIE Administration Lactobacillus Acidophilus 1,250 mg 06/19/24 14:00 06/20/24 09:31 Advanced Probiotic 625 Mg Capsule PO 07/19/24 13:59 1,250 mg DAILY STEPHANIE Administration Pravastatin Sodium 80 mg 06/19/24 21:00 06/19/24 21:54 Pravastatin Sod 40 Mg Tab PO 07/19/24 20:59 80 mg HS STEPHANIE Administration Prednisolone Acetate 1 drops 06/20/24 09:00 06/20/24 09:32 Prednisolone Acetate 1% Op Susp 5 Ml Btl OPB 07/20/24 08:59 1 drops DAILY STEPHANIE Administration (1) AMS (altered mental status) Altered mental status type: unspecified Qualified Code(s): R41.82 - Altered mental status, unspecified (2) Pneumonia involving left lung Lung location: lower lobe of lung Pneumonia type: due to unspecified organism Qualified Code(s): J18.9 - Pneumonia, unspecified organism (5) Catheter-associated urinary tract infection Encounter type: subsequent encounter Indwelling urinary catheter type: indwelling urethral catheter Qualified Code(s): T83.511D - Infection and inflammatory reaction due to indwelling urethral catheter, subsequent encounter; N39.0 - Urinary tract infection, site not specified (6) Wound of sacral region Encounter type: sequela Qualified Code(s): S31.000S - Unspecified open wound of lower back and pelvis without penetration into retroperitoneum, sequela
[2024-06-20] MEDS: ASPIRIN 81 MG ECTAB PO SCH (09:24)
[2024-06-20] MEDS: CALCIUM CARBONATE 1250MG TAB PO SCH (09:25)
[2024-06-20] MEDS: DOCUSATE SODIUM 100 MG CAP PO SCH (09:31)
[2024-06-20] MEDS: prednisoLONE acetate 1% OP SUSP 5 ML BTL OPB SCH (09:32)
[2024-06-20] MEDS: FUROSEMIDE INJ 20 MG/2 ML VIAL IV ONE (11:47)
[2024-06-20] MEDS: POTASSIUM CHLORIDE / WTR 10 MEQ/100 ML PLCT IV SCH (11:51)
[2024-06-20] MEDS ORDERED: guaiFENesin/CODEINE 100MG/10MG 5ML UDC PO PRN (12:04)
[2024-06-20] MEDS: guaiFENesin/CODEINE 100MG/10MG 5ML UDC PO STA (12:18)
[2024-06-20] MEDS: AMIODARONE 200 MG TAB PO SCH (12:24)
[2024-06-20] MEDS: MAGNESIUM OXIDE 400 MG TAB PO SCH (12:25)
[2024-06-20] MEDS: PSYLLIUM or GUAR GUM FIBER 4GM PACKET PO SCH (12:25)
[2024-06-20] MEDS: METOPROLOL SUCC 25MG EXT REL TAB PO SCH (12:25)
[2024-06-20] MEDS: DOXYCYCLINE HYCLATE 100 MG in DEXTROSE 5% MINI-B 100 ML IV SCH (13:43)
[2024-06-20] MEDS: MICONAZOLE NITRATE POWDER 85 GM EXT PRN (16:31)
--- NOTE | 2024-06-21 06:44 | Electrocardiogram Report ---
Test Reason : Blood Pressure : */* mmHG Vent. Rate : 72 BPM Atrial Rate : 68 BPM P-R Int : * ms QRS Dur : 170 ms QT Int : 450 ms P-R-T Axes : * -54 23 degrees QTcB Int : 492 ms Poor data quality, interpretation may be adversely affected Atrial fibrillation Right bundle branch block Left anterior fascicular block Bifascicular block Moderate voltage criteria for LVH, may be normal variant Abnormal ECG When compared with ECG of 19-Jun-2024 09:29, No significant change was found Confirmed by Butch Strange ([id number]) on 06/21/2024 6:44:34 AM Referred By: REFERRED SELF Confirmed By: Butch Strange
[2024-06-21 07:10] LABS: Hematocrit (blood only) 28.8 % (37.0-47.0); Hemoglobin 9.4 g/dl (12.0-16.0); Mean Corpuscular Hemoglobin 32.4 pg (25.0-34.0); Mean Corpuscular Hgb Conc 32.6 g/dL (32.0-36.0); Mean Corpuscular Volume 99.3 fL (80.0-100.0); Mean Platelet Volume 10.9 fL (9.4-12.4); Platelet Count 53 K/uL (130-400); RDW Coefficient of Variation 15.5 % (11.5-14.5); RDW Standard Deviation 55.5 fL (36.4-46.3); White Blood Count 4.64 K/ul (4.8-10.8)
[2024-06-21 07:42] LABS: BUN Creatinine Ratio 17.4 (10-20); Calcium 8.2 mg/dl (8.6-10.3); Creatinine Clr Calc Pharmacy 35.4 ml/min; Magnesium 1.7 mg/dl (1.7-2.4); Potassium 3.9 mmol/L (3.5-5.1)
[2024-06-21 11:26] VITALS: O2SAT 96
--- NOTE | 2024-06-21 12:40 | Hospitalist Progress Note ---
Date of Service June 21, 2024 Assessment & Plan (1) AMS (altered mental status): (2) Pneumonia involving left lung: (3) History of urinary retention: (4) Pardo catheter in place prior to arrival: (5) Catheter-associated urinary tract infection: (6) Wound of sacral region: (7) Chronic diastolic CHF (congestive heart failure): (8) Venous stasis dermatitis of both lower extremities: (9) Chronic anemia: (10) Paroxysmal atrial fibrillation: (11) MGUS (monoclonal gammopathy of unknown significance): (12) History of hypercalcemia: (13) Prolonged QT interval: Plan Shannon Salazar is an 88 year old woman with PMHx significant for HLD, HTN, PAF s/p left atrial appendage ligation [not on anticoagulation], chronic diastolic CHF, pulmonary HTN, moderate TR, GERD, urge incontinence, generalized osteoarthritis, age-related osteoporosis, monoclonal gammopathy of unknown significance (MGUS), severe s/p AV replacement in 2017, paraesophageal hernia s/p surgical repair, SUZETTE and benign paroxysmal vertigo who presented to the ED via EMS from [facility] due to increased confusion, vomiting and cough and admitted for concern of pneumonia and CAUTI 55 minutes spent with patient and daughters discussing options for the future of patient's care. It was explained that patient has multiple comorbidities and has high likelihood of returning to hospital. It was also noted that patient is with low motivation given significant psychosocial stressors ongoing, including the of her daughter recently. It was decided by patient and family that hospice and comfort are the patient's priority #Comfort measures Plan for Hospice discharge will transition to PO abx for now Case management working for hospice discharge reduce pill burden as able analgesia prn #Acute toxic metabolic encephalopathy #Left basilar Pneumonia POA #Influenza A Infection #Cauti POA 2/ enterobacter cloacae UA notable for infection with 3+ LE, >50 WBC and 4+ bacteria. Urine culture pending. Pardo catheter exchanged in the ED today. Recent flu, risk for aspiration v superimposed bacterial pneumonia UA from 06/06 with 2 species of enterobacter cloacae UA from 06/19 with multiple lucero as above #Wound of sacral region POA Noted sacral pressure wound on admission, Wound care consulted for assistance. Q2H repositioning. #Acute on Chronic diastolic CHF (congestive heart failure): Resting echocardiogram from 11/2023 noted moderately increased concentric LV wall thickness, normal LV wall motion, LVEF = 55-59%, severe biatrial enlargement, severe mitral annular calcification, moderately calcified mitral valve leaflets, moderate mitral regurgitation, severe tricuspid regurgitation and mildly elevated pulmonary artery systolic pressure of 45-50mmHg. BNP elevated with vascular congestion on imaging trial of x1 lasix now with k replacement No further diuresis at this time # Venous stasis dermatitis of both lower extremities: Follows with [facility]. AmLactin cream ordered. #MGUS c/f MM #acute on c hronic pancytopenia: Stable, Hgb 10.6 (baseline Hgb around 9-11) on admission. Continue to monitor H/H. Stopped taking iron supplement as directed by PCP. Platelet count downtrending iso infection, CTM Had an appointment with Dr. Napier on 06/11/24. Most likely has IgG lambda multiple myeloma based on recent lab evaluation--plan for further op follow up no further labs at this time #Paroxysmal atrial fibrillation: Follows with [facility] cardiology. S/p left atrial appendage ligation. Currently rate-controlled. Not on anticoagulation s/p left atrial appendage ligation procedure 2/2 frequent falls and bleeding risk. Can continue home metoprolol succinate and amiodarone.discontinue monitoring #History of hypercalcemia: Previously admitted under our service this past April with generalized weakness, confusion and was found to have elevated calcium level with the elevated IgG and lambda light chain level. Was treated with calcitonin plus Zometa and IV hydration with normalization of the calcium. Calcium level WNL on admission. #Prolonged QT interval: Prolonged QTc of 504ms on admission, remains elevated Other Chronic Medical Conditions: HLD/Seasonal Allergies/GERD - Continue home medications for these specific conditions. DVT Prophylaxis:scds Code Status: DNR/DNI PCP: Eliazar Reis MD Disposition: plan for hospice Discussion with daughter had at bedside regarding care plan and concerns for disposition I spent a total of 75 minutes coordinating, documenting, and providing care for this patient excluding time spent in the performance of separately billed services. All of the aforementioned completed while collaborating with the assigned attending physician for a full treatment plan. Please see their addendum for further details. Admission and Anticipated Discharge Date Admission Date: June 19, 2024 Subjective NAEO Reports that she is "tired" and doesn't feel "better or worse" endorses some mild improvement in cough Spoke to patient and daughters at bedside patient wishes to be "comfortable" and feels that hospice sounds like a "good idea" Physical Exam Constitutional: thin and frail, chronically ill woman Respiratory: diminished 2/2 effort Cardiovascular: JANEE++, Gastrointestinal (Abdomen): normal bowel sounds, soft, nontender, no hepatosplenomegaly Results & Data Results & Data Vital Signs (Past 12 Hours) Vital Signs Temp Pulse Pulse Resp BP BP Pulse Ox 06/21/24 11:25 36.8 C 68 18 95/58 L 96 06/21/24 10:42 60 06/21/24 08:16 36.5 C 61 18 123/73 92 06/21/24 07:54 06/21/24 04:00 36.4 C L 62 18 121/76 95 O2 Del Method 06/21/24 11:25 Room Air 06/21/24 10:42 06/21/24 08:16 Room Air 06/21/24 07:54 Room Air 06/21/24 04:00 Room Air Laboratory Results Short CBC 06/21/24 Range/Units 06:49 WBC 4.64 L (4.8-10.8) K/ul Hgb 9.4 L (12.0-16.0) g/dl Hct 28.8 L (37.0-47.0) % Plt Count 53 L (130-400) K/uL BMP 06/21/24 06:49 Sodium 135 L Potassium 3.9 Chloride 110 H Carbon Dioxide 21 BUN 15 Creatinine 0.86 Glucose 79 Calcium 8.2 L Medications Administered Home Medications Medication Instructions Recorded Confirmed Last Taken pravastatin 80 mg tablet 80 mg PO HS 07/15/20 06/19/24 09/30/22 prednisolone acetate 1 % eye 1 drp OPB DAILY 07/15/20 06/19/24 09/30/22 08:00 drops,suspension acetaminophen 500 mg tablet 1,000 mg PO BID PRN Pain 06/13/21 06/19/24 08/07/21 (Tylenol Extra Strength) ascorbic acid (vitamin C) 500 mg 500 mg PO QAM 06/13/21 06/19/24 09/30/22 tablet (Vitamin C) fexofenadine 180 mg tablet 180 mg PO HS 07/06/21 06/19/24 09/29/22 metoprolol succinate 25 mg 12.5 mg PO QAM 08/07/21 06/19/24 04/25/23 08:30 tablet,extended release 24 hr aspirin 81 mg tablet,delayed 81 mg PO QAM 09/30/22 06/19/24 Unknown release potassium chloride 10 mEq 10 meq PO TID 09/30/22 06/19/24 09/30/22 08:00 tablet,extended release(part/cryst) (Klor-Con M) spironolactone 25 mg tablet 12.5 mg (1/2 x 25 mg) PO DAILY #30 10/05/22 06/19/24 Unknown tabs ondansetron 4 mg disintegrating 4 mg PO Q6H PRN Nausea/Vomiting 04/25/23 06/19/24 04/23/23 tablet amiodarone 200 mg tablet 200 mg PO QAM 01/26/24 06/19/24 Unknown docusate sodium 100 mg capsule See Rx Instructions .Route .COMPLEX 04/23/24 06/19/24 Unknown (Colace) furosemide 20 mg tablet 20 mg PO DAILY PRN Leg 04/23/24 06/19/24 Unknown Swelling/Weight Gain psyllium husk 0.4 gram capsule 0.4 g PO DAILY 04/23/24 06/19/24 Unknown (Metamucil) famotidine 20 mg tablet 20 mg PO DAILY PRN Indigestion 04/29/24 06/19/24 Unknown calcium carbonate 500 mg PO DAILY 06/19/24 06/19/24 Unknown carboxymethylcellulose sodium 1 % 1 drp ophthalmic (eye) BID PRN Dry 06/19/24 06/19/24 06/18/24 eye liquid gel drops Eyes magnesium oxide 500 mg capsule 500 mg PO DAILY 06/19/24 06/19/24 Unknown mirtazapine 15 mg tablet 15 mg PO HS 06/19/24 06/19/24 Unknown Active Medications Generic Name Dose Route Start Last Admin Trade Name Freq PRN Reason Stop Dose Admin Amiodarone HCl 200 mg 06/20/24 09:00 06/21/24 09:54 Amiodarone 200 Mg Tab PO 07/20/24 08:59 200 mg QAM STEPHANIE Administration Docusate Sodium 200 mg 06/20/24 09:00 06/21/24 09:54 Docusate Sodium 100 Mg Cap PO 07/20/24 08:59 200 mg DAILY STEPHANIE Administration Docusate Sodium 100 mg 06/19/24 21:00 06/20/24 21:00 Docusate Sodium 100 Mg Cap PO 07/19/24 20:59 100 mg HS STEPHANIE Administration Fexofenadine HCl 180 mg 06/19/24 21:00 06/20/24 21:01 Fexofenadine Hcl 180 Mg Tab PO 07/19/24 20:59 180 mg HS STEPHANIE Administration Lactic Acid 1 gm 06/19/24 14:00 06/21/24 14:00 Ammonium Lactate 12% Lotion 225 Gm Btl EXT 07/19/24 13:59 1 gm TID STEPHANIE Administration Lactobacillus Acidophilus 1,250 mg 06/19/24 14:00 06/21/24 09:54 Advanced Probiotic 625 Mg Capsule PO 07/19/24 13:59 1,250 mg DAILY STEPHANIE Administration Magnesium Oxide 400 mg 06/20/24 09:00 06/21/24 09:54 Magnesium Oxide 400 Mg Tab PO 07/20/24 08:59 400 mg DAILY STEPHANIE Administration Metoprolol Succinate 12.5 mg 06/20/24 09:00 06/21/24 09:55 Metoprolol Succ 25mg Ext Rel Tab PO 07/20/24 08:59 12.5 mg QAM STEPHANIE Administration Miconazole Nitrate 1 appln 06/20/24 15:49 06/21/24 13:57 Miconazole Nitrate Powder 85 Gm EXT 07/20/24 15:48 1 appln PRN PRN Administration Affected Skin Folds Prednisolone Acetate 1 drops 06/20/24 09:00 06/21/24 09:55 Prednisolone Acetate 1% Op Susp 5 Ml Btl OPB 07/20/24 08:59 1 drops DAILY STEPHANIE Administration Psyllium Hydrophilic Mucilloid 4 gm 06/20/24 09:00 06/21/24 09:55 Psyllium Or Guar Gum Fiber 4gm Packet PO 07/20/24 08:59 4 gm DAILY STEPHANIE Administration (1) AMS (altered mental status) Altered mental status type: unspecified Qualified Code(s): R41.82 - Altered mental status, unspecified (2) Pneumonia involving left lung Lung location: lower lobe of lung Pneumonia type: due to unspecified organism Qualified Code(s): J18.9 - Pneumonia, unspecified organism (5) Catheter-associated urinary tract infection Encounter type: subsequent encounter Indwelling urinary catheter type: indwelling urethral catheter Qualified Code(s): T83.511D - Infection and inflammatory reaction due to indwelling urethral catheter, subsequent encounter; N39.0 - Urinary tract infection, site not specified (6) Wound of sacral region Encounter type: sequela Qualified Code(s): S31.000S - Unspecified open wound of lower back and pelvis without penetration into retroperitoneum, sequela
[2024-06-21] MEDS ORDERED: MoRPHine SULFATE 10 MG/0.5 ML UDP PO PRN (14:41)
[2024-06-21] MEDS ORDERED: ONDANSETRON INJ 2 MG/ML 2 ML VIAL IV PRN (14:41)
[2024-06-21] MEDS ORDERED: LORazepam 2 MG/1 ML VIAL IV PRN (14:41)
[2024-06-21 16:09] VITALS: BP 120/72; PULSE 63; TEMP 97.5
[2024-06-21] MEDS ORDERED: AMOXICILLIN/CLAVULANATE 875 MG TAB PO SCH (17:00)
[2024-06-21] MEDS: HYDROCORTISONE 1% CRM 30 GM TUBE EXT PRN (18:20)
[2024-06-21] MEDS: SULFAMETHOXAZOLE/TRIMETHOPRIM DS 800/160MG TAB PO SCH (19:38)
--- NOTE | 2024-06-22 05:46 | Electrocardiogram Report ---
Test Reason : Blood Pressure : */* mmHG Vent. Rate : 62 BPM Atrial Rate : 125 BPM P-R Int : * ms QRS Dur : 164 ms QT Int : 498 ms P-R-T Axes : * -52 41 degrees QTcB Int : 505 ms Atrial fibrillation Right bundle branch block Left anterior fascicular block Bifascicular block Voltage criteria for left ventricular hypertrophy Abnormal ECG When compared with ECG of 20-Jun-2024 05:14, No significant change Confirmed by Butch Strange ([id number]) on 06/22/2024 5:45:53 AM Referred By: REFERRED SELF Confirmed By: Butch Strange
[2024-06-22 07:23] LABS: Hematocrit (blood only) 29.3 % (37.0-47.0); Hemoglobin 9.7 g/dl (12.0-16.0); Mean Corpuscular Hemoglobin 32.7 pg (25.0-34.0); Mean Corpuscular Hgb Conc 33.1 g/dL (32.0-36.0); Mean Corpuscular Volume 98.7 fL (80.0-100.0); Mean Platelet Volume 11.7 fL (9.4-12.4); Platelet Count 53 K/uL (130-400); RDW Coefficient of Variation 15.4 % (11.5-14.5); RDW Standard Deviation 55.5 fL (36.4-46.3); Red Blood Count 2.97 M/uL (4.20-5.40); White Blood Count 5.25 K/ul (4.8-10.8)
[2024-06-22 07:25] LABS: BUN Creatinine Ratio 17.6 (10-20); Calcium 8.9 mg/dl (8.6-10.3); Creatinine Clr Calc Pharmacy 41.2 ml/min; Magnesium 1.8 mg/dl (1.7-2.4); Potassium 3.7 mmol/L (3.5-5.1)
--- NOTE | 2024-06-22 11:01 | Discharge Summary ---
Discharge Summary Date of Service June 22, 2024 Principal Dx & Hospital Course #1 = Principal Diagnosis (1) AMS (altered mental status): (2) Pneumonia involving left lung: (3) History of urinary retention: (4) Pardo catheter in place prior to arrival: (5) Catheter-associated urinary tract infection: (6) Wound of sacral region: (7) Chronic diastolic CHF (congestive heart failure): (8) Venous stasis dermatitis of both lower extremities: (9) Chronic anemia: (10) Paroxysmal atrial fibrillation: (11) MGUS (monoclonal gammopathy of unknown significance): (12) History of hypercalcemia: (13) Prolonged QT interval: Plan Shannon Salazar is an 88 year old woman with PMHx significant for HLD, HTN, PAF s/p left atrial appendage ligation [not on anticoagulation], chronic diastolic CHF, pulmonary HTN, moderate TR, GERD, urge incontinence, generalized osteoarthritis, age-related osteoporosis, monoclonal gammopathy of unknown significance (MGUS), severe s/p AV replacement in 2017, paraesophageal hernia s/p surgical repair, SUZETTE and benign paroxysmal vertigo who presented to the ED via EMS from [facility] due to increased confusion, vomiting and cough and admitted for concern of pneumonia and CAUTI On 06/22, 55 minutes spent with patient and daughters discussing options for the future of patient's care. It was explained that patient has multiple comorbidities and has high likelihood of returning to hospital. It was also noted that patient is with low motivation given significant psychosocial stressors ongoing, including the of her daughter recently. It was decided by patient and family that hospice and comfort are the patient's priority Patient was ultimately discharge to hospice at [facility]. On day of discharge, patient reports no new concerns or uncontrolled symptoms, however, no subjective improvement. #Comfort measures discharge with hospice to [facility] reduce pill burden as able #Acute toxic metabolic encephalopathy #Left basilar Pneumonia POA #Influenza A Infection #Cauti POA 2/ Enterobacter cloacae UA notable for infection with 3+ LE, >50 WBC and 4+ bacteria. Urine culture pending. Pardo catheter exchanged in the ED today. Recent flu, risk for aspiration v superimposed bacterial pneumonia UA from 06/06 with 2 species of enterobacter cloacae UA from 06/19 with multiple lucero Bactrim BID x 5 more days #Wound of sacral region POA Noted sacral pressure wound on admission, Wound care consulted for assistance. Q2H repositioning. #Acute on Chronic diastolic CHF (congestive heart failure): Resting echocardiogram from 11/2023 noted moderately increased concentric LV wall thickness, normal LV wall motion, LVEF = 55-59%, severe biatrial enlargement, severe mitral annular calcification, moderately calcified mitral valve leaflets, moderate mitral regurgitation, severe tricuspid regurgitation and mildly elevated pulmonary artery systolic pressure of 45-50mmHg. BNP elevated with vascular congestion on imaging trial of x1 lasix x1 k replacement No further diuresis at this time # Venous stasis dermatitis of both lower extremities: Follows with [facility].. #MGUS c/f MM #acute on c hronic pancytopenia: Stable, Hgb 10.6 (baseline Hgb around 9-11) on admission. Continue to monitor H/H. Stopped taking iron supplement as directed by PCP. Platelet count downtrending iso infection, CTM Had an appointment with Dr. Napier on 06/11/24. Most likely has IgG lambda multiple myeloma based on recent lab evaluation--plan for further op follow up no further labs at this time #Paroxysmal atrial fibrillation: Follows with [facility] cardiology. S/p left atrial appendage ligation. Currently rate-controlled. Not on anticoagulation s/p left atrial appendage ligation procedure 2/2 frequent falls and bleeding risk. Can continue home metoprolol succinate and amiodarone.discontinue monitoring #History of hypercalcemia: Previously admitted under our service this past April with generalized weakness, confusion and was found to have elevated calcium level with the elevated IgG and lambda light chain level. Was treated with calcitonin plus Zometa and IV hydration with normalization of the calcium. Calcium level WNL on admission. #Prolonged QT interval: Prolonged QTc of 504ms on admission, remains elevated Other Chronic Medical Conditions: HLD/Seasonal Allergies/GERD - Continue home medications for these specific c onditions. Notes For Next Care Provider Hospice Medication Changes From Visit Discontinued multiple meds as able given pill burden Other medications continued more for keeping com Admission HPI Per Admitting Provider Shannon Salazar is an 88y/o F with PMHx significant for HLD, HTN, PAF s/p left atrial appendage ligation [not on anticoagulation], chronic diastolic CHF, pulmonary HTN, moderate TR, GERD, urge incontinence, generalized osteoarthritis, age-related osteoporosis, monoclonal gammopathy of unknown significance (MGUS), severe s/p AV replacement in 2017, paraesophageal hernia s/p surgical repair, SUZETTE and benign paroxysmal vertigo who presented to the ED via EMS from [facility] due to increased confusion, vomiting and cough. Majority of history obtained from family at bedside, discussion with ED provider, documentation provided by [facility] and associated chart review. Patient A&Ox2 with direct questioning but is a poor historian overall. Unable to correctly recall month and year. Able to state her daughters' (both at bedside) names and knows she is at [facility]. Of note, patient's eldest daughter sadly last evening. Recently seen and evaluated in the ED on 06/06/24 and diagnosed with influenza A and CAUTI. She was discharged home with a course of oral cephalexin. Has chronic indwelling Pardo catheter due to history of urinary retention; Pardo catheter present upon arrival to ED today. Urine culture from 06/06/24 grew Enterobacter cloacae complex with documented resistance to cefotaxime, ceftriaxone, nitrofurantoin and Zosyn. Urine culture was however though to show sensitivity to cefepime, amikacin, ciprofloxacin, gentamicin, Levaquin, meropenem, tobramycin and Bactrim. Patient was found lying in her recliner this morning covered in vomit at [facility] by 2 of her daughters. She has been alert and conversive with her daughters since being found however they mention she does seem intermittently confused with periods of forgetfulness and more lethargic than usual. No reported blood in her vomit. Staff at [facility] did note an elevated temporal temperature of 100.3F this morning. Patient with no complaints except for productive cough. Denies any SOB or chest pain. No reported bouts of diarrhea; patient deals with constipation at baseline. Has indwelling Pardo catheter in place due to issues with urinary retention. UA notable for infection with 3+ LE, >50 WBC and 4+ bacteria. Urine culture pending. Pardo catheter exchanged in the ED today. S/p IV cefepime + Flagyl in the ED. Also received a total of 1L NSS in the ED. No evidence of sepsis on admission; VSS. No recorded hypoxic episodes. Initial laboratory evaluation notes Hgb 10.6 (baseline Hgb around 9-11) and platelet count 93k (baseline platelet count around 70-100k). No leukocytosis however procalcitonin slightly bumped at 0.73; lactate negative. Na 134, calcium level WNL. RVP + for influenza A. Head CT unremarkable. CXR with new left basilar infiltrate suspicious for PNA, moderate gaseous distention of the stomach and chronic cardiomegaly with pulmonary vascular congestion. Family extremely upset with the care she has been receiving at [facility]. Family requests eventual placement at a different facility, refuses to have her go back to [facility]. Unfortunately patient has developed a sacral pressure wound while at the facility. Patient was previously discharged to [facility] following her prior admission back in May but was then discharged to [facility] after a few weeks. Reportedly she failed repeat voiding trials at both facilities. Family found her Pardo bag opened and spilling onto the floor next to her this morning. She does have a cough which has been ongoing since she was diagnosed with influenza A last month in the ED on 06/06/24. Her cough has been productive of whitish to yellow-colored phlegm since it started last month. She was having some nausea/vomiting when she was initially diagnosed with influenza A last month as previously mentioned, but this had resolved over a course of a few days. Today is the first time she has vomited in a little over a week. There have been times where the patient adamantly refuses to take her medications at [facility]. Did not take her medications this morning. Daughters do not recall her having issues with swallowing food at the facility. She typically tolerates an easy to chew diet without much issue. They have, however, noticed a steady decline in her appetite since being diagnosed with influenza A last month. Admission Exam Per Admitting Provider General: Thin/elderly F, sitting up in bed. Sleepy but easily arousable. A+Ox2 to location and person. Unable to recall month, day of week or year. HEENT: Normocephalic, atraumatic. Conjunctivae normal. External ear and nose normal. Oropharynx appears somewhat dry. Respiratory: Normal respiratory effort. Coarse breath sounds heard throughout, + rhonchi in LLL. No expiratory wheezing. NAD on RA. Cardiovascular: Regular rate. Irregularly irregular rhythm. + ESM over precordium and aortic area. No BLE edema. + BLE venous stasis dermatitis. Abdomen/GI: Normal bowel sounds, soft, nondistended, nontender to palpation in all quadrants. : Pardo catheter intact and draining clear, yellow urine without issue. Pardo catheter exchanged in the ED. Extremities/Musculoskeletal: Extremities motor strength intact, actively moves all extremities. Generalized bruising involving the extremities. Neurologic: No overt focal deficits, CN's II-XI not formally tested but appear grossly intact bilaterally. Skin: + sacral pressure sores covered in bandaging, did not directly visualize wounds. Discharge Exam Constitutional frail elderly woman Respiratory diminshed 2/2 effort Cardiovascular JANEE+ Updated Medication List Medication Instructions Recorded Confirmed Type prednisolone acetate 1 % eye 1 drp OPB DAILY 07/15/20 06/19/24 History drops,suspension acetaminophen 500 mg tablet 1,000 mg PO BID PRN Pain 06/13/21 06/19/24 History (Tylenol Extra Strength) ascorbic acid (vitamin C) 500 mg 500 mg PO QAM 06/13/21 06/19/24 History tablet (Vitamin C) fexofenadine 180 mg tablet 180 mg PO HS 07/06/21 06/19/24 History metoprolol succinate 25 mg 12.5 mg PO QAM 08/07/21 06/19/24 History tablet,extended release 24 hr ondansetron 4 mg disintegrating 4 mg PO Q6H PRN Nausea/Vomiting 04/25/23 06/19/24 History tablet amiodarone 200 mg tablet 200 mg PO QAM 01/26/24 06/19/24 History docusate sodium 100 mg capsule See Rx Instructions .Route .COMPLEX 04/23/24 06/19/24 History (Colace) furosemide 20 mg tablet 20 mg PO DAILY PRN Leg 04/23/24 06/19/24 History Swelling/Weight Gain psyllium husk 0.4 gram capsule 0.4 g PO DAILY 04/23/24 06/19/24 History (Metamucil) famotidine 20 mg tablet 20 mg PO DAILY PRN Indigestion 04/29/24 06/19/24 History calcium carbonate 500 mg PO DAILY 06/19/24 06/19/24 History carboxymethylcellulose sodium 1 % 1 drp ophthalmic (eye) BID PRN Dry 06/19/24 06/19/24 History eye liquid gel drops Eyes magnesium oxide 500 mg capsule 500 mg PO DAILY 06/19/24 06/19/24 History L.acidop,casei,lactis,rham-B.lact,clover 1 cap PO DAILY 7 days #7 caps 06/22/24 Rx 625 mg (10 billion cell) capsule (Advanced Probiotic) sulfamethoxazole 800 1 tab PO Q12 5 days #10 tabs 06/22/24 Rx mg-trimethoprim 160 mg tablet (Bactrim DS) Hospital Stay Data Consultations 06/19/24 11:10 ED Decision to Admit Stat 06/19/24 12:31 ED Decision to Admit Stat Diagnostic Imagining Performed 06/19/24 12:25 CT head/brain wo con Stat Pending Results Patient Have Any Pending Studies at Discharge: No Discharge Instructions Given to Patient (Per Discharging Provider) You were admitted for confusion and noted to have concern for superimposed bact erial pneumonia and UTI. You improved with a dose of water pill and some antibiotics. You will continue 5 more days of bactrim by mouth, as well as a daily probiotic. It was decided to transition to hospice. Therefore you will discontinue aspirin, spironolactone, mirtazipine, and pravastatin, as well as potassium supplement, to help reduce pill burden. Total Time Total Time Spent Total Time Spent (In Minutes): 45
== END 2024-06-22 14:25 | disposition hospice, inpatient (51) | DRG 177 ==
LOC: ED 09:24 → 2N 12:24 → SUATTDRO 12:24 → 2N 13:26 → 3N 06-21 22:34
DX: Z95.5 Presence of coronary angioplasty implant and graft; Z88.8 Allergy status to other drugs, medicaments and biological substances; I87.2 Venous insufficiency (chronic) (peripheral); I50.33 Acute on chronic diastolic (congestive) heart failure; Z79.899 Other long term (current) drug therapy; Z11.52 Encounter for screening for COVID-19; L89.159 Pressure ulcer of sacral region, unspecified stage; G92.8 Other toxic encephalopathy; J30.2 Other seasonal allergic rhinitis; Z79.82 Long term (current) use of aspirin; K21.9 Gastro-esophageal reflux disease without esophagitis; B95.2 Enterococcus as the cause of diseases classified elsewhere; I45.81 Long QT syndrome; Z51.5 Encounter for palliative care; I11.0 Hypertensive heart disease with heart failure; C90.00 Multiple myeloma not having achieved remission; N39.0 Urinary tract infection, site not specified; E78.5 Hyperlipidemia, unspecified; D47.2 Monoclonal gammopathy; Z63.4 Disappearance and death of family member; Z95.2 Presence of prosthetic heart valve; R05.9 Cough, unspecified; Z66 Do not resuscitate; Z88.6 Allergy status to analgesic agent; Y84.6 Urinary catheterization as the cause of abnormal reaction of the patient, or of later complication, without mention of misadventure at the time of the procedure; T83.511A Infection and inflammatory reaction due to indwelling urethral catheter, initial encounter; I48.0 Paroxysmal atrial fibrillation; Z87.440 Personal history of urinary (tract) infections; J69.0 Pneumonitis due to inhalation of food and vomit

== ENCOUNTER 2024-07-06 16:50 | Inpatient (IN) ==
--- NOTE | 2024-07-06 17:13 | Emergency Department Note ---
Impression & Plan Sepsis, Aspiration pneumonia, Complicated urinary tract infection ED Provider Note NAME: LIANG CRUZ AGE: 88 SEX: F : 1935 ARRIVES VIA: Ambulance INFORMANT: Patient ED PROVIDER(S): Abdi Malloy MD CHIEF COMPLAINT: Nausea and vomiting, weakness. PLAN: Disposition: Admit MEDICAL DECISION MAKING: The patient is a pleasant 88-year-old woman with a past medical history of HLD, HTN, PAF s/p left atrial appendage ligation [not on anticoagulation], chronic diastolic CHF, pulmonary HTN, moderate TR, GERD, urge incontinence, generalized osteoarthritis, age-related osteoporosis, monoclonal gammopathy of unknown significance (MGUS), severe s/p AV replacement in 2017, paraesophageal hernia s/p surgical repair, SUZETTE and benign paroxysmal vertigo who presents to the emergency department via EMS from [facility] and accompanied by her daughter for evaluation of nausea and vomiting that has been occurring throughout today with similar episode that occurred on Tuesday but per the daughter had been doing okay since then. Patient was admitted to this facility recently in the beginning of June for aspiration pneumonia. The patient's daughter reports that she has been increasingly weak and fatigued since her symptoms started. They do confirm that the patient is DNR/DNI and they have been in discussions regarding prioritizing comfort. On presentation the patient is in no acute distress, afebrile with respiratory rate in the 20s and blood pressure 170/110s and vital signs otherwise stable. O2 saturation 94% on 3 L nasal cannula. She appears clinically dry. She has rhonchi of bilateral lung felton. She exhibits no focal neurologic deficits. WBC 12K with neutrophilia but no left shift. H/H similar to an increased from prior likely reflecting component of hemoconcentration as his platelets which are improved at 138K from prior. Chemistry without metabolic acidosis. BUN/creatinine consistent with patient's clinically dry appearance. Initial lactic acid 2.1 with repeat pending. LFTs are unremarkable. HS troponin 17.4, mildly above normal. Procalcitonin is within normal limits. Lipase is not elevated. UA suspicious for infection and was obtained following catheter exchange. Respiratory BioFire was negative. Chest x-ray with patchy bilateral airspace opacity suspicious for pneumonia per my preliminary independent interpretation. Lung findings further characterized on CT of the chest which was negative for PE and demonstrates patchy bilateral airspace opacities consistent with bronchitis/pneumonia. CT of the abdomen pelvis demonstrates evidence of gastroparesis and otherwise no acute intra-abdominal process. Treatment initiated with IV meropenem upon review of prior urine cultures. This will provide coverage for aspiration pneumonia as well. Patient treated with IV fluid hydration with 1 L normal saline and 30 cc/KG deferred out of caution for volume overload given patient is DNI. [facility]. Further management per admitting team. Triage Nursing notes reviewed and agree them. Prior/external medical records reviewed Vital Signs: reviewed Differential diagnosis: Gastroenteritis, food borne illness, infections, appendicitis, diverticulitis, inflammatory bowel disease, obstruction, GI bleed, biliary pathology, volvulus, as well as other pathologies. ER treatment provided: See below. Diagnostics interpreted by me: ECG: Atrial fibrillation with RVR, 105 bpm, right bundle-branch block, left anterior fascicular block, LVH, no overt ST elevation, QTc 470, QRS 156. Cardiac Monitoring: An order for continuous cardiac monitoring was placed and demonstrated atrial fibrillation, RVR, 105 bpm, no ectopy. Laboratory studies: See below Imaging studies: See below Consultation(s): Case was discussed with Dr. Lopez [facility] who will evaluate the patient for admission. HPI: The patient is a pleasant 88-year-old woman with a past medical history of HLD, HTN, PAF s/p left atrial appendage ligation [not on anticoagulation], chronic diastolic CHF, pulmonary HTN, moderate TR, GERD, urge incontinence, generalized osteoarthritis, age-related osteoporosis, monoclonal gammopathy of unknown significance (MGUS), severe s/p AV replacement in 2017, paraesophageal hernia s/p surgical repair, SUZETTE and benign paroxysmal vertigo who presents to the emergency department via EMS from [facility] and accompanied by her daughter for evaluation of nausea and vomiting that has been occurring throughout today with similar episode that occurred on Tuesday but per the daughter had been doing okay since then. Patient was admitted to this facility recently in the beginning of June for aspiration pneumonia. The patient's daughter reports that she has been increasingly weak and fatigued since her symptoms started. They do confirm that the patient is DNR/DNI and they have been in discussions regarding prioritizing comfort. ROS: See above HPI for pertinent positives & negatives. A total of 10 systems reviewed and were otherwise negative. VITALS:See Below PHYSICAL EXAMINATION: GENERAL: Awake, alert, ill-appearing, in no distress HENT: Normocephalic, atraumatic. Oropharynx with dry mucous membranes and otherwise unremarkable. EYES: Normal conjunctiva. Sclera non-icteric. NECK: Supple. No nuchal rigidity. FROM. No JVD. RESPIRATORY: Rhonchi bilateral lung felton with mild increased work of breathing. CARDIAC: Tachycardic rate, irregular rhythm. Extremities warm and well perfused. Pulses equal. ABDOMEN: Soft, non-distended. No tenderness to palpation. No rebound or guarding. No masses. MUSCULOSKELETAL: Chest examination reveals no tenderness. The back is symmetrical on inspection without obvious abnormality. There is no CVA tenderness to palpation. No joint edema. LOWER EXTREMITIES: Calves are equal size bilaterally and non-tender. No edema. No discoloration. NEURO: No focal sensory or motor deficits noted. SKIN: No rash or jaundice noted. ED COURSE: Critical Care: I have personally spent greater than 35 minutes of critical care time in the direct management of this patient. This includes bedside care, interpretation of diagnostic studies, and testing, discussion with consultants, patient, and family members, and other required patient management activities. This 35 minutes is in excess of all separately billable procedures. Abdi Malloy MD Past Med/Surg History Problem List (Updated 07/07/24 @ 17:25 by Abdi Malloy MD) Comfort measures only status Sepsis (Acute) Complicated urinary tract infection (Acute) Aspiration pneumonia (Acute) Thrombocytopenia (Acute) Anemia (Acute) Prolonged QT interval History of hypercalcemia MGUS (monoclonal gammopathy of unknown significance) Chronic anemia Venous stasis dermatitis of both lower extremities Wound of sacral region History of urinary retention Pardo catheter in place prior to arrival Acute hyponatremia (Acute) Acute UTI (Acute) Acute confusion due to infection Suspected UTI Age-related cognitive decline Dysphagia Chest wall contusion Hypomagnesemia Frequent falls Hypercalcemia (Acute) Chronic venous insufficiency (Chronic) Traumatic open wound of lower leg (Acute) Hypokalemia Generalized weakness (Acute) Acute on chronic heart failure with preserved ejection fraction (HFpEF) Elevated troponin (Acute) Hypoxia (Acute) CHF (congestive heart failure) (Acute) Nausea (Acute) Surgical wound, non healing (Acute) Venous insufficiency of both lower extremities (Chronic) Infected hematoma (Acute) Infected wound Syncope Cellulitis of leg, right DVT prophylaxis Thrombocytopenia Anemia Hematoma Laceration of lip (Acute) Ambulatory dysfunction (Acute) Acute knee pain (Acute) Fall (Acute) Paroxysmal atrial fibrillation (Acute) controlled w/ meds Dr Meyer Chronic diastolic CHF (congestive heart failure) Medical History Catheter-associated urinary tract infection Left lower lobe pneumonia Altered mental status Chest pain MGUS (monoclonal gammopathy of unknown significance) Seasonal allergies Incontinence of urine Nausea and vomiting after administration of anesthetic agent History of COVID-19 2020- no hosp; resolved GERD (gastroesophageal reflux disease) Surgical History Hx of cardiac catheterization ~2018, prior to valve replacement, no stents History of esophagogastroduodenoscopy (EGD) Hx of colonoscopy H/O: hysterectomy S/P repair of paraesophageal hernia History of total knee arthroplasty S/P aortic valve replacement with bioprosthetic valve ~2018- [facility] Family History Other Cancer Diabetes Social History Smoking Status: Former smoker Tobacco Type: Cigarettes Second Hand Exposure: No; Do You Dip or Chew Tobacco: No; Tobacco Cessation Education Requested by Patient: No Hx Alcohol Use: No Hx Substance Use: No Preferred Language: Mongolian Communication Ability: Unable Visual Impairment: Severely Limited Hearing Ability: Hard of Hearing Practice Nurse Required: No Beliefs That Will Affect Care: None marital status: / Current Living Situation: [facility] Current Living Situation Comment: [facility] current occupational status: retired How many Children do You have: 3 How many Children do You have Comment: all able to assist with care Other Information That Helps Us Care for You: No Feels Safe at Home: Yes Safety Concerns: Feels Safe At This Time Diet: regular caffeine: Yes during the past year weight has: remained stable Assistive Devices: Walker and Wheelchair Allergies Allergies Allergy/AdvReac Type Severity Reaction Status Date / Time simvastatin AdvReac Severe ELEVATED Verified 06/19/24 10:41 LIVER ENZYMES oxaprozin AdvReac Intermediate MAKES FEEL Verified 06/19/24 10:41 DEPRESSED Home Meds Home Medications Medication Instructions Recorded Confirmed prednisolone acetate 1 % eye 1 drp OPB DAILY 07/15/20 07/06/24 drops,suspension acetaminophen 500 mg tablet 1,000 mg PO BID PRN Pain 06/13/21 07/06/24 (Tylenol Extra Strength) ascorbic acid (vitamin C) 500 mg 500 mg PO QAM 06/13/21 07/06/24 tablet (Vitamin C) fexofenadine 180 mg tablet 180 mg PO HS 07/06/21 07/06/24 metoprolol succinate 25 mg 12.5 mg PO QAM 08/07/21 07/06/24 tablet,extended release 24 hr ondansetron 4 mg disintegrating 4 mg PO Q6H PRN Nausea/Vomiting 04/25/23 07/06/24 tablet amiodarone 200 mg tablet 200 mg PO QAM 01/26/24 07/06/24 docusate sodium 100 mg capsule See Rx Instructions .Route .COMPLEX 04/23/24 07/06/24 (Colace) furosemide 20 mg tablet 20 mg PO DAILY PRN Leg 04/23/24 07/06/24 Swelling/Weight Gain psyllium husk 0.4 gram capsule 0.4 g PO DAILY 04/23/24 07/06/24 (Metamucil) famotidine 20 mg tablet 20 mg PO DAILY PRN Indigestion 04/29/24 07/06/24 calcium carbonate 500 mg PO DAILY 06/19/24 07/06/24 carboxymethylcellulose sodium 1 % 1 drp ophthalmic (eye) BID PRN Dry 06/19/24 07/06/24 eye liquid gel drops Eyes magnesium oxide 500 mg capsule 500 mg PO DAILY 06/19/24 07/06/24 Results & Data (ED) Vital Signs Vital Signs - 24 hr 07/06/24 19:00 07/06/24 21:00 07/06/24 21:00 Pulse Rate 95 H Pulse Rate [Apical] 89 87 Pulse Rhythm [Apical] Regular Pulse Strength [Apical] Normal Respiratory Rate 18 20 Respiratory Effort / Characteristics Non-Labored Non-Labored Spontaneous Respiratory Depth Normal Normal Respiratory Pattern Regular Blood Pressure [Right Arm] 191/96 H 175/99 H Blood Pressure Mean [Right Arm] 127 124 Blood Pressure Position [Right Arm] Lying Pulse Oximetry 100 99 Oxygen Delivery Method Nasal Cannula Nasal Cannula Oxygen Flow Rate 6 4 Laboratory Data Attestation: I reviewed the patient's lab results. 07/06/24 17:05 07/06/24 17:05 Lab Results 07/06/24 07/06/24 07/06/24 Range/Units 17:05 17:12 18:46 WBC 12.07 H (4.8-10.8) K/ul RBC 3.34 L (4.20-5.40) M/uL Hgb 11.0 L (12.0-16.0) g/dl Hct 32.3 L (37.0-47.0) % MCV 96.7 (80.0-100.0) fL MCH 32.9 (25.0-34.0) pg MCHC 34.1 (32.0-36.0) g/dL RDW Std Deviation 51.3 H (36.4-46.3) fL RDW Coeff of Tung 14.4 (11.5-14.5) % Plt Count 138 (130-400) K/uL MPV 10.1 (9.4-12.4) fL Immature Gran % (Auto) 1.5 % Neut % (Auto) 87.2 % Lymph % (Auto) 6.0 % Ferry % (Auto) 5.1 % Eos % (Auto) 0.0 % Baso % (Auto) 0.2 % Neut # (Auto) 10.53 H (1.40-6.50) K/uL Lymph # (Auto) 0.73 L (1.20-3.40) K/uL Ferry # (Auto) 0.61 H (0.11-0.59) K/uL Eos # (Auto) 0.00 (0.00-0.50) K/uL Baso # (Auto) 0.02 (0.00-0.20) K/uL Immature Gran # (Auto) 0.18 (0.01-0.20) K/uL PT 11.8 (9.0-12.0) Seconds INR 1.1 (0.9-1.1) Sodium 135 L (136-145) mmol/L Potassium 3.4 L (3.5-5.1) mmol/L Chloride 102 (98-107) mmol/L Carbon Dioxide 24 (21-32) mmol/L Anion Gap 9 (3-11) BUN 14 (6-23) mg/dl Creatinine 0.58 L (0.6-1.2) mg/dl Est Cr Clr Drug Dosing 52.5 ml/min eGFR 88.08 BUN/Creatinine Ratio 24.1 H (10-20) Glucose 150 H (70-99(Fasting)) mg/dl Lactate (0.4-2.0) mmol/L Calcium 8.0 L (8.6-10.3) mg/dl Magnesium 1.7 (1.7-2.4) mg/dl Total Bilirubin 0.7 (0.2-1.0) mg/dl AST 14 (13-39) U/L ALT 11 (7-52) U/L Alkaline Phosphatase 83 (34-104) U/L Troponin I High Sens 17.4 H (0-14) pg/ml Total Protein 9.5 H (6.0-8.3) gm/dl Albumin 2.7 L (3.4-5.0) gm/dl Globulin 6.8 H (2.5-4.0) gm/dl Albumin/Globulin Ratio 0.4 L (0.9-2) Lipase 17 (11-82) U/L Procalcitonin 0.45 (0-0.5) ng/ml TSH 3.567 (0.300-4.500) uIu/ml Urine Color Yellow Yellow Urine Appearance Turbid A Cloudy A (Clear) Urine pH >= 9.0 H 8.5 H (4.5-7.5) Ur Specific [place] 1.014 1.013 (1.000-1.030) Urine Protein 2+ H 2+ H (Negative) Urine Glucose (UA) Negative Negative (Negative) Urine Ketones Negative Negative (Negative) Urine Blood Negative 1+ H (Negative) Urine Nitrite Negative Negative (Negative) Urine Bilirubin Negative Negative (Negative) Urine Urobilinogen Negative Negative (Negative) Ur Leukocyte Esterase 1+ H 1+ H (Negative) Urine WBC (Auto) 6-10 H 11-20 H (0-5) /hpf Urine RBC (Auto) 0-2 6-10 H (0-2) /hpf U Hyaline Cast (Auto) 3-5 H 3-5 H (0-2) /lpf U Epithel Cells (Auto) 6-10 H 0-2 (0-2) /hpf Urine Bacteria (Auto) 4+ H 4+ H (None Seen) Triple Phos Crystals Present A (None Prsent) Urine Yeast Present A (None Prsent) Nasal Screen MRSA (PCR) (Negative) Adenovirus (PCR) Not Detected (NotDetected) B. pertussis DNA (PCR) Not Detected (NotDetected) B.parapertussis DNA PCR Not Detected (NotDetected) C. pneumoniae DNA (PCR) Not Detected (NotDetected) Coronavirus OC43 (PCR) Not Detected (NotDetected) Coronavirus HKU1 (PCR) Not Detected (NotDetected) Coronavirus 229E (PCR) Not Detected (NotDetected) SARS-CoV-2 (PCR) Not Detected (NotDetected) Coronavirus NL63 (PCR) Not Detected (NotDetected) Human Metapneumovir PCR Not Detected (NotDetected) Influenza Type A (PCR) Not Detected (NotDetected) Influenza Type B (PCR) Not Detected (NotDetected) M. pneumoniae (PCR) Not Detected (NotDetected) Parainfluenza 1 (PCR) Not Detected (NotDetected) Parainfluenza 2 (PCR) Not Detected (NotDetected) Parainfluenza 3 (PCR) Not Detected (NotDetected) Parainfluenza 4 (PCR) Not Detected (NotDetected) RSV (PCR) Not Detected (NotDetected) Entero/Rhino (PCR) Not Detected (NotDetected) 07/06/24 07/06/24 Range/Units 18:50 20:32 WBC (4.8-10.8) K/ul RBC (4.20-5.40) M/uL Hgb (12.0-16.0) g/dl Hct (37.0-47.0) % MCV (80.0-100.0) fL MCH (25.0-34.0) pg MCHC (32.0-36.0) g/dL RDW Std Deviation (36.4-46.3) fL RDW Coeff of Tung (11.5-14.5) % Plt Count (130-400) K/uL MPV (9.4-12.4) fL Immature Gran % (Auto) % Neut % (Auto) % Lymph % (Auto) % Ferry % (Auto) % Eos % (Auto) % Baso % (Auto) % Neut # (Auto) (1.40-6.50) K/uL Lymph # (Auto) (1.20-3.40) K/uL Ferry # (Auto) (0.11-0.59) K/uL Eos # (Auto) (0.00-0.50) K/uL Baso # (Auto) (0.00-0.20) K/uL Immature Gran # (Auto) (0.01-0.20) K/uL PT (9.0-12.0) Seconds INR (0.9-1.1) Sodium (136-145) mmol/L Potassium (3.5-5.1) mmol/L Chloride (98-107) mmol/L Carbon Dioxide (21-32) mmol/L Anion Gap (3-11) BUN (6-23) mg/dl Creatinine (0.6-1.2) mg/dl Est Cr Clr Drug Dosing ml/min eGFR BUN/Creatinine Ratio (10-20) Glucose (70-99(Fasting)) mg/dl Lactate 2.1 H* 1.1 (0.4-2.0) mmol/L Calcium (8.6-10.3) mg/dl Magnesium (1.7-2.4) mg/dl Total Bilirubin (0.2-1.0) mg/dl AST (13-39) U/L ALT (7-52) U/L Alkaline Phosphatase (34-104) U/L Troponin I High Sens (0-14) pg/ml Total Protein (6.0-8.3) gm/dl Albumin (3.4-5.0) gm/dl Globulin (2.5-4.0) gm/dl Albumin/Globulin Ratio (0.9-2) Lipase (11-82) U/L Procalcitonin (0-0.5) ng/ml TSH (0.300-4.500) uIu/ml Urine Color Urine Appearance (Clear) Urine pH (4.5-7.5) Ur Specific [place] (1.000-1.030) Urine Protein (Negative) Urine Glucose (UA) (Negative) Urine Ketones (Negative) Urine Blood (Negative) Urine Nitrite (Negative) Urine Bilirubin (Negative) Urine Urobilinogen (Negative) Ur Leukocyte Esterase (Negative) Urine WBC (Auto) (0-5) /hpf Urine RBC (Auto) (0-2) /hpf U Hyaline Cast (Auto) (0-2) /lpf U Epithel Cells (Auto) (0-2) /hpf Urine Bacteria (Auto) (None Seen) Triple Phos Crystals (None Prsent) Urine Yeast (None Prsent) Nasal Screen MRSA (PCR) Negative (Negative) Adenovirus (PCR) (NotDetected) B. pertussis DNA (PCR) (NotDetected) B.parapertussis DNA PCR (NotDetected) C. pneumoniae DNA (PCR) (NotDetected) Coronavirus OC43 (PCR) (NotDetected) Coronavirus HKU1 (PCR) (NotDetected) Coronavirus 229E (PCR) (NotDetected) SARS-CoV-2 (PCR) (NotDetected) Coronavirus NL63 (PCR) (NotDetected) Human Metapneumovir PCR (NotDetected) Influenza Type A (PCR) (NotDetected) Influenza Type B (PCR) (NotDetected) M. pneumoniae (PCR) (NotDetected) Parainfluenza 1 (PCR) (NotDetected) Parainfluenza 2 (PCR) (NotDetected) Parainfluenza 3 (PCR) (NotDetected) Parainfluenza 4 (PCR) (NotDetected) RSV (PCR) (NotDetected) Entero/Rhino (PCR) (NotDetected) Administered Medications Docusate Sodium (Docusate Sodium 100 Mg Cap) 100 mg PO PM STEPHANIE Stop: 08/05/24 23:11 Last Admin: 07/07/24 00:42 Dose: Not Given Documented By: PNM Docusate Sodium (Docusate Sodium 100 Mg Cap) 200 mg PO QAM STEPHANIE Stop: 08/06/24 08:59 Last Admin: 07/07/24 09:45 Dose: Not Given Documented By: RDL Glycopyrrolate (Glycopyrrolate 0.2 Mg/Ml Vial) 0.4 mg IV Q4H PRN PRN Reason: Rattling Secretions or Pulm Co Stop: 08/05/24 23:11 Last Admin: 07/07/24 11:35 Dose: 0.4 mg Documented By: WEI Promethazine HCl (Phenergan) 6.25 mg in 50.25 mls @ 201 mls/hr IV Q6H PRN PRN Reason: Nausea And Vomiting Stop: 08/06/24 09:57 Last Infusion: 07/07/24 11:50 Dose: Infused Documented By: Admin: 07/07/24 11:31 Dose: 201 mls/hr Documented By: WEI Ondansetron HCl (Ondansetron Inj 2 Mg/Ml 2 Ml Vial) 4 mg IV Q4H PRN PRN Reason: Nausea &/or Vomiting Stop: 08/05/24 23:11 Last Admin: 07/07/24 14:53 Dose: 4 mg Documented By: Admin: 07/07/24 09:45 Dose: 4 mg Documented By: Admin: 07/07/24 04:37 Dose: 4 mg Documented By: PNM Prednisolone Acetate (Prednisolone Acetate 1% Op Susp 5 Ml Btl) 1 drops OPB DAILY STEPHANIE Stop: 08/06/24 08:59 Last Admin: 07/07/24 10:01 Dose: Not Given Documented By: WEI Discontinued Medications Sodium Chloride (Nss) 1,000 mls @ 999 mls/hr IV .Q1H1M ONE Stop: 07/06/24 18:52 Last Infusion: 07/06/24 19:50 Dose: Infused Documented By: Admin: 07/06/24 18:29 Dose: 999 mls/hr Documented By: MMG Famotidine (Pepcid 20mg Iv Push) 20 mg in 5 mls @ 2.5 mls/min IV NOW STA Stop: 07/06/24 17:53 Last Admin: 07/06/24 18:29 Dose: 2.5 mls/min Documented By: MMG Acetaminophen (Ofirmev) 1,000 mg in 100 mls @ 400 mls/hr IV NOW STA Stop: 07/06/24 18:08 Last Infusion: 07/06/24 18:44 Dose: Infused Documented By: Admin: 07/06/24 18:29 Dose: 400 mls/hr Documented By: MMG Piperacillin Sod/Tazobactam Sod (Zosyn) 4.5 gm in 100 mls @ 200 mls/hr IV NOW ONE; Protocol Stop: 07/06/24 18:23 Last Admin: 07/06/24 19:50 Dose: Not Given Documented By: SINDHU Meropenem 500 mg/ Syringe 10 mls @ 2 mls/min IV NOW STA; Protocol Stop: 07/06/24 18:47 Last Admin: 07/06/24 20:32 Dose: 2 mls/min Documented By: TOM Ioversol (Optiray 320 125ml) 119 ml IV ONCE ONE Stop: 07/06/24 19:39 Last Admin: 07/06/24 19:38 Dose: 119 ml Documented By: NIECY Ondansetron HCl (Ondansetron Inj 2 Mg/Ml 2 Ml Vial) 4 mg IV NOW STA Stop: 07/06/24 17:53 Last Admin: 07/06/24 18:29 Dose: 4 mg Documented By: MIGUEL Ondansetron HCl (Ondansetron Inj 2 Mg/Ml 2 Ml Vial) 4 mg IV NOW STA Stop: 07/06/24 21:21 Last Admin: 07/06/24 21:24 Dose: 4 mg Documented By: SINDHU Imaging Data Radiologist's Impression: Chest X-Ray 07/06/24 17:11 EXAM: Radiograph of the Chest 1 View INDICATION: Chest pain TECHNIQUE: Frontal view of the chest. COMPARISON: 05/28/2024 FINDINGS: Lungs and pleural spaces: Minimal atelectasis noted in the left lung base. No consolidation or pulmonary edema. No pleural effusion or pneumothorax. Heart: Stable enlargement. Atrial clip and sternotomy wires stable. Mediastinum: Normal contour. Bones/joints: No acute abnormality. Soft tissues: No abnormality noted. No radiopaque foreign body noted. Upper abdomen: No abnormality noted. IMPRESSION: Minimal atelectasis noted in the left lung base. ACT 112: N/A Electronically signed by Asuncion Mcgraw 07-06-2024 5:58 PM Abdomen/Pelvis CT 07/06/24 17:55 EXAM: CT Angiography Chest and CT Abdomen and Pelvis With Intravenous Contrast INDICATION: Abdominal pain. Nausea and vomiting. TECHNIQUE: Axial computed tomographic angiography images of the chest and axial computed tomography images of the abdomen and pelvis with intravenous contrast. Sagittal and coronal reformatted images were created and reviewed. This CT exam was performed using one or more of the following dose reduction techniques: automated exposure control, adjustment of the mA and/or kV according to patient size, and/or use of iterative reconstruction technique. MIP reconstructed images were created and reviewed. CONTRAST: 119ml of Optiray 320 was administered intravenously. COMPARISON: New, CT abdomen 09/30/2022 FINDINGS: CHEST: Aorta: The heart is enlarged. No pericardial effusion or right heart strain. Dense mitral and aortic valvular calcification noted. Pulmonary arteries: No significant abnormality noted. No pulmonary embolism is identified. Great vessels of aortic arch: No acute change noted. No dissection. No arterial occlusion or significant stenosis. Lungs and pleural spaces: There is diffuse airway thickening and peribronchial infiltrates in all lobes of both lungs. No bronchiectasis or honeycombing. Trace layering bilateral pleural effusions. No pneumothorax. Heart: No abnormality noted. No cardiomegaly. No significant pericardial effusion. Mediastinum: Diffuse mild esophageal thickening noted. No evident mass or mediastinal gas. ABDOMEN: Liver: No abnormality noted. No mass. Gallbladder and bile ducts: No abnormality noted. No calcified stones. No ductal dilation. Pancreas: No abnormality noted. No ductal dilation. No mass. Spleen: No abnormality noted. No splenomegaly. Adrenals: Stable low-density left adrenal mass likely adenoma. No further assessment required. The right appears normal. Kidneys and ureters: Bilateral renal cortical scarring noted. No stones or hydronephrosis. Simple right renal cysts. No follow-up of these simple cysts is necessary. No solid mass. Stomach and bowel: Colonic diverticulosis without diverticulitis. No intestinal thickening or obstruction. The stomach is distended with fluid and air. Moderate stool throughout the colon and diffuse diverticulosis. No diverticulitis or obstruction. PELVIS: Appendix: No findings to suggest acute appendicitis. Bladder: No abnormality noted. No mass. Reproductive: No significant abnormality noted. CHEST, ABDOMEN and PELVIS: Intraperitoneal space: No abnormality noted. No significant fluid collection. No free air. Bones/joints: Old left anterior rib fractures. Scoliotic kyphotic thoracic spine and accentuated lumbar lordosis. Diffuse degenerative changes present. Soft tissues: Umbilical hernia containing fat. Lymph nodes: No abnormality noted. No enlarged lymph nodes. IMPRESSION: 1. No traumatic change noted in the chest, abdomen or pelvis. 2. Bronchitis and peribronchial pneumonia in both lungs. 3. Diffuse esophageal thickening consistent with esophagitis. 4. Distended stomach. Consider gastroparesis. 5. Extensive colonic diverticulosis without diverticulitis. ACT 112: N/A Electronically signed by Asuncion Mcgraw 07-06-2024 8:18 PM Chest CTA 07/06/24 17:55 EXAM: CT Angiography Chest and CT Abdomen and Pelvis With Intravenous Contrast INDICATION: Abdominal pain. Nausea and vomiting. TECHNIQUE: Axial computed tomographic angiography images of the chest and axial computed tomography images of the abdomen and pelvis with intravenous contrast. Sagittal and coronal reformatted images were created and reviewed. This CT exam was performed using one or more of the following dose reduction techniques: automated exposure control, adjustment of the mA and/or kV according to patient size, and/or use of iterative reconstruction technique. MIP reconstructed images were created and reviewed. CONTRAST: 119ml of Optiray 320 was administered intravenously. COMPARISON: New, CT abdomen 09/30/2022 FINDINGS: CHEST: Aorta: The heart is enlarged. No pericardial effusion or right heart strain. Dense mitral and aortic valvular calcification noted. Pulmonary arteries: No significant abnormality noted. No pulmonary embolism is identified. Great vessels of aortic arch: No acute change noted. No dissection. No arterial occlusion or significant stenosis. Lungs and pleural spaces: There is diffuse airway thickening and peribronchial infiltrates in all lobes of both lungs. No bronchiectasis or honeycombing. Trace layering bilateral pleural effusions. No pneumothorax. Heart: No abnormality noted. No cardiomegaly. No significant pericardial effusion. Mediastinum: Diffuse mild esophageal thickening noted. No evident mass or mediastinal gas. ABDOMEN: Liver: No abnormality noted. No mass. Gallbladder and bile ducts: No abnormality noted. No calcified stones. No ductal dilation. Pancreas: No abnormality noted. No ductal dilation. No mass. Spleen: No abnormality noted. No splenomegaly. Adrenals: Stable low-density left adrenal mass likely adenoma. No further assessment required. The right appears normal. Kidneys and ureters: Bilateral renal cortical scarring noted. No stones or hydronephrosis. Simple right renal cysts. No follow-up of these simple cysts is necessary. No solid mass. Stomach and bowel: Colonic diverticulosis without diverticulitis. No intestinal thickening or obstruction. The stomach is distended with fluid and air. Moderate stool throughout the colon and diffuse diverticulosis. No diverticulitis or obstruction. PELVIS: Appendix: No findings to suggest acute appendicitis. Bladder: No abnormality noted. No mass. Reproductive: No significant abnormality noted. CHEST, ABDOMEN and PELVIS: Intraperitoneal space: No abnormality noted. No significant fluid collection. No free air. Bones/joints: Old left anterior rib fractures. Scoliotic kyphotic thoracic spine and accentuated lumbar lordosis. Diffuse degenerative changes present. Soft tissues: Umbilical hernia containing fat. Lymph nodes: No abnormality noted. No enlarged lymph nodes. IMPRESSION: 1. No traumatic change noted in the chest, abdomen or pelvis. 2. Bronchitis and peribronchial pneumonia in both lungs. 3. Diffuse esophageal thickening consistent with esophagitis. 4. Distended stomach. Consider gastroparesis. 5. Extensive colonic diverticulosis without diverticulitis. ACT 112: N/A Electronically signed by Asuncion Mcgraw 07-06-2024 8:18 PM Discharge Plan Visit Data Chief Complaint: Hypertension ED Provider: Abdi Malloy Discharge Problem: Sepsis, Aspiration pneumonia, Complicated urinary tract infection Patient Disposition: Admitted As Inpatient Discharge Instructions Interventions: ED Discharge Assessment Last Done: 07/06/24 22:32 Discharge Problem: Sepsis Qualifiers: Sepsis type: sepsis due to unspecified organism Sepsis acute organ dysfunction status: unspecified Qualified Code(s): A41.9 - Sepsis, unspecified organism Aspiration pneumonia Qualifiers: Aspiration pneumonia type: unspecified Laterality: bilateral Lung location: l ower lobe of lung Qualified Code(s): J69.0 - Pneumonitis due to inhalation of food and vomit
[2024-07-06 17:29] LABS: Basophils # (auto) 0.02 K/uL (0.00-0.20); Basophils % (auto) 0.2 %; Hematocrit (blood only) 32.3 % (37.0-47.0); Immature Granulocytes # (auto) 0.18 K/uL (0.01-0.20); Immature Granulocytes % (auto) 1.5 %; Lymphocytes # (auto) 0.73 K/uL (1.20-3.40); Mean Corpuscular Hemoglobin 32.9 pg (25.0-34.0); Mean Corpuscular Hgb Conc 34.1 g/dL (32.0-36.0); Mean Corpuscular Volume 96.7 fL (80.0-100.0); Mean Platelet Volume 10.1 fL (9.4-12.4); Monocytes # (auto) 0.61 K/uL (0.11-0.59); Monocytes % (auto) 5.1 %; Neutrophils # (auto) 10.53 K/uL (1.40-6.50); Neutrophils % (auto) 87.2 %; Platelet Count 138 K/uL (130-400); RDW Coefficient of Variation 14.4 % (11.5-14.5); RDW Standard Deviation 51.3 fL (36.4-46.3); Red Blood Count 3.34 M/uL (4.20-5.40); White Blood Count 12.07 K/ul (4.8-10.8)
[2024-07-06 17:46] LABS: Albumin Globulin Ratio 0.4 (0.9-2); Albumin Level 2.7 gm/dl (3.4-5.0); BUN Creatinine Ratio 24.1 (10-20); Bilirubin,Total 0.7 mg/dl (0.2-1.0); Creatinine Clr Calc Pharmacy 52.5 ml/min; Globulin 6.8 gm/dl (2.5-4.0); Magnesium 1.7 mg/dl (1.7-2.4); Potassium 3.4 mmol/L (3.5-5.1); Total Protein 9.5 gm/dl (6.0-8.3)
[2024-07-06 17:50] LABS: INR 1.1 (0.9-1.1); Prothrombin Time 11.8 Seconds (9.0-12.0)
[2024-07-06 17:51] LABS: Troponin I High Sensitivity 17.4 pg/ml (0-14)
[2024-07-06 17:58] LABS: Appearance Urine Turbid (Clear); Bacteria Urine Automated 4+ (None Seen); Bilirubin Urine Negative (Negative); Blood Urine Negative (Negative); Color Urine Yellow; Glucose Urine UA Negative (Negative); Ketones Urine Negative (Negative); Leukocyte Esterase Urine 1+ (Negative); Nitrite Urine Negative (Negative); Protein Urine 2+ (Negative); Specific Gravity Urine 1.014 (1.000-1.030); Urobilinogen Urine Negative (Negative); pH Urine >= 9.0 (4.5-7.5)
--- NOTE | 2024-07-06 17:58 | XRay Report ---
EXAM: Radiograph of the Chest 1 View INDICATION: Chest pain TECHNIQUE: Frontal view of the chest. COMPARISON: 05/28/2024 FINDINGS: Lungs and pleural spaces: Minimal atelectasis noted in the left lung base. No consolidation or pulmonary edema. No pleural effusion or pneumothorax. Heart: Stable enlargement. Atrial clip and sternotomy wires stable. Mediastinum: Normal contour. Bones/joints: No acute abnormality. Soft tissues: No abnormality noted. No radiopaque foreign body noted. Upper abdomen: No abnormality noted. IMPRESSION: Minimal atelectasis noted in the left lung base. ACT 112: N/A Electronically signed by Asuncion Mcgraw 07-06-2024 5:58 PM
[2024-07-06 18:01] LABS: Thyroid Stimulating Hormone 3.567 uIu/ml (0.300-4.500)
[2024-07-06 18:15] LABS: RBC Urine Automated 0-2 /hpf (0-2); Triple Phosphate Crystal Urine Present (None Prsent)
[2024-07-06] MEDS: SODIUM CHLORIDE 0.9% 1,000 ML IV ONE (18:29)
[2024-07-06] MEDS: ACETAMINOPHEN 1,000 MG/100 ML VIAL IV STA (18:29)
[2024-07-06] MEDS: FAMOTIDINE 20MG IV PUSH 20 MG/5 ML SYR IV STA (18:29)
[2024-07-06] MEDS: ONDANSETRON INJ 2 MG/ML 2 ML VIAL IV STA ×2 (18:29→21:24)
[2024-07-06 18:34] LABS: Adenovirus PCR Not Detected (NotDetected); Bordetella parapertussis PCR Not Detected (NotDetected); Bordetella pertussis PCR Not Detected (NotDetected); Chlamydia pneumoniae PCR Not Detected (NotDetected); Coronavirus 229E PCR Not Detected (NotDetected); Coronavirus CoV-2 (COVID19)PCR Not Detected (NotDetected); Coronavirus HKU1 PCR Not Detected (NotDetected); Coronavirus NL63 PCR Not Detected (NotDetected); Coronavirus OC43PCR Not Detected (NotDetected); Human Metapneumovirus PCR Not Detected (NotDetected); Influenza A PCR Not Detected (NotDetected); Influenza B PCR Not Detected (NotDetected); Mycoplasma pneumoniae PCR Not Detected (NotDetected); Parainfluenza Virus 1 PCR Not Detected (NotDetected); Parainfluenza Virus 2 PCR Not Detected (NotDetected); Parainfluenza Virus 3 PCR Not Detected (NotDetected); Parainfluenza Virus 4 PCR Not Detected (NotDetected); Respiratory Syncytial VirusPCR Not Detected (NotDetected); Rhinovirus/Enterovirus PCR Not Detected (NotDetected)
[2024-07-06 19:23] LABS: Appearance Urine Cloudy (Clear); Bacteria Urine Automated 4+ (None Seen); Bilirubin Urine Negative (Negative); Blood Urine 1+ (Negative); Color Urine Yellow; Epithelial Cell Urine Auto 0-2 /hpf (0-2); Glucose Urine UA Negative (Negative); Ketones Urine Negative (Negative); Leukocyte Esterase Urine 1+ (Negative); Nitrite Urine Negative (Negative); Protein Urine 2+ (Negative); Specific Gravity Urine 1.013 (1.000-1.030); Urobilinogen Urine Negative (Negative); pH Urine 8.5 (4.5-7.5)
[2024-07-06] MEDS: OPTIRAY 320 125ml IV ONE (19:38)
[2024-07-06] MEDS: PIPERACILLIN/TAZOBACTAM 4.5 GM/100 ML BAG IV ONE (19:50)
--- NOTE | 2024-07-06 20:18 | CT Scan Report ---
EXAM: CT Angiography Chest and CT Abdomen and Pelvis With Intravenous Contrast INDICATION: Abdominal pain. Nausea and vomiting. TECHNIQUE: Axial computed tomographic angiography images of the chest and axial computed tomography images of the abdomen and pelvis with intravenous contrast. Sagittal and coronal reformatted images were created and reviewed. This CT exam was performed using one or more of the following dose reduction techniques: automated exposure control, adjustment of the mA and/or kV according to patient size, and/or use of iterative reconstruction technique. MIP reconstructed images were created and reviewed. CONTRAST: 119ml of Optiray 320 was administered intravenously. COMPARISON: New, CT abdomen 09/30/2022 FINDINGS: CHEST: Aorta: The heart is enlarged. No pericardial effusion or right heart strain. Dense mitral and aortic valvular calcification noted. Pulmonary arteries: No significant abnormality noted. No pulmonary embolism is identified. Great vessels of aortic arch: No acute change noted. No dissection. No arterial occlusion or significant stenosis. Lungs and pleural spaces: There is diffuse airway thickening and peribronchial infiltrates in all lobes of both lungs. No bronchiectasis or honeycombing. Trace layering bilateral pleural effusions. No pneumothorax. Heart: No abnormality noted. No cardiomegaly. No significant pericardial effusion. Mediastinum: Diffuse mild esophageal thickening noted. No evident mass or mediastinal gas. ABDOMEN: Liver: No abnormality noted. No mass. Gallbladder and bile ducts: No abnormality noted. No calcified stones. No ductal dilation. Pancreas: No abnormality noted. No ductal dilation. No mass. Spleen: No abnormality noted. No splenomegaly. Adrenals: Stable low-density left adrenal mass likely adenoma. No further assessment required. The right appears normal. Kidneys and ureters: Bilateral renal cortical scarring noted. No stones or hydronephrosis. Simple right renal cysts. No follow-up of these simple cysts is necessary. No solid mass. Stomach and bowel: Colonic diverticulosis without diverticulitis. No intestinal thickening or obstruction. The stomach is distended with fluid and air. Moderate stool throughout the colon and diffuse diverticulosis. No diverticulitis or obstruction. PELVIS: Appendix: No findings to suggest acute appendicitis. Bladder: No abnormality noted. No mass. Reproductive: No significant abnormality noted. CHEST, ABDOMEN and PELVIS: Intraperitoneal space: No abnormality noted. No significant fluid collection. No free air. Bones/joints: Old left anterior rib fractures. Scoliotic kyphotic thoracic spine and accentuated lumbar lordosis. Diffuse degenerative changes present. Soft tissues: Umbilical hernia containing fat. Lymph nodes: No abnormality noted. No enlarged lymph nodes. IMPRESSION: 1. No traumatic change noted in the chest, abdomen or pelvis. 2. Bronchitis and peribronchial pneumonia in both lungs. 3. Diffuse esophageal thickening consistent with esophagitis. 4. Distended stomach. Consider gastroparesis. 5. Extensive colonic diverticulosis without diverticulitis. ACT 112: N/A Electronically signed by Asuncion Mcgraw 07-06-2024 8:18 PM
[2024-07-06] MEDS: MEROPENEM 500 MG in SYRINGE 0 ML IV STA (20:32)
--- NOTE | 2024-07-06 20:39 | History & Physical Report ---
Date of Service July 06, 2024 Assessment & Plan (1) Complicated urinary tract infection: (2) Aspiration pneumonia: (3) Sepsis: Plan: Sepsis Acute respiratory failure with hypoxia Bilateral pneumonia likely due to aspiration Complicated urinary tract infection Dehydration Hypertensive urgency Hypokalemia Lactic acidosis Mild troponin elevation likely demand ischemia Esophagitis Acute metabolic encephalopathy secondary to above Other chronic conditions: paroxysmal atrial fibrillation s/p left atrial appendage ligation Chronic diastolic heart failure Hypertension Hyperlipidemia Pulmonary hypertension 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 Had extensive discussion with patient's daughters Cristina (YFN) at bedside and Karin over the phone. Patient had expressed multiple times to family that she would not want any interventions to prolong her life and prefers to be comfortable. Patient was thought to be brought back to the hospital despite being discharged on comfort measures last admission as they believed the facility was not able to keep her comfortable. Patient and patient's family understands consequences of being untreated with above infections. They prefer her to be transition to comfort measures only given ongoing recurrent infections, comorbidities and elderly age. Patient is placed on comfort measures only. Antiemetics, pain control as needed Palliative care consulted as well DVT Px: Not indicated CODE STATUS DNI DNR Disposition Admit to [facility] History of Present Illness Chief Complaint: Nausea and Vomiting Primary Care Provider: Eliazar Reis MD Patient is an 88-year-old female with history of paroxysmal atrial fibrillation s/p left atrial appendage ligation, currently not on any anticoagulation, chronic diastolic heart failure, hypertension, hyperlipidemia, pulmonary hypertension, valvular heart disease s/p aortic valve replacement, urinary incontinence, chronic indwelling Pardo catheter, MGUS, paraesophageal hernia S/P repair, iron deficiency anemia, recurrent urinary tract infections and other medical comorbidities who was recently discharged from [facility] 2 weeks ago after being treated for pneumonia, pleural AAA, diastolic heart failure was discharged to [facility] to be transition to comfort measures. Patient is currently lethargic and most of the history is obtained from patient's daughter at bedside. Patient is going through a lot of grief currently due to loss of family member. Patient started to have nausea and vomiting on Tuesday which resolved and then tolerated diet. She was noted to have intractable nausea, vomiting again today while at [facility]. She has been lethargic and intermittently confused as per daughter. She was also noted to have cough with some expectoration. No known history of chest pain, dyspnea, dizziness, fever, chills dysuria, hematuria. Patient admits to have some abdominal discomfort. Catheter was changed while in ED. Patient received meropenem, IV fluids while in ED. She was also noted to be hypoxic in 80s per ER staff requiring supplemental oxygen to maintain saturation. Allergies Allergy/AdvReac Type Severity Reaction Status Date / Time simvastatin AdvReac Severe ELEVATED Verified 06/19/24 10:41 LIVER ENZYMES oxaprozin AdvReac Intermediate MAKES FEEL Verified 06/19/24 10:41 DEPRESSED Home Medications Medication Instructions Recorded Confirmed Type prednisolone acetate 1 % eye 1 drp OPB DAILY 07/15/20 07/06/24 History drops,suspension acetaminophen 500 mg tablet 1,000 mg PO BID PRN Pain 06/13/21 07/06/24 History (Tylenol Extra Strength) ascorbic acid (vitamin C) 500 mg 500 mg PO QAM 06/13/21 07/06/24 History tablet (Vitamin C) fexofenadine 180 mg tablet 180 mg PO HS 07/06/21 07/06/24 History metoprolol succinate 25 mg 12.5 mg PO QAM 08/07/21 07/06/24 History tablet,extended release 24 hr ondansetron 4 mg disintegrating 4 mg PO Q6H PRN Nausea/Vomiting 04/25/23 07/06/24 History tablet amiodarone 200 mg tablet 200 mg PO QAM 01/26/24 07/06/24 History docusate sodium 100 mg capsule See Rx Instructions .Route .COMPLEX 04/23/24 07/06/24 History (Colace) furosemide 20 mg tablet 20 mg PO DAILY PRN Leg 04/23/24 07/06/24 History Swelling/Weight Gain psyllium husk 0.4 gram capsule 0.4 g PO DAILY 04/23/24 07/06/24 History (Metamucil) famotidine 20 mg tablet 20 mg PO DAILY PRN Indigestion 04/29/24 07/06/24 History calcium carbonate 500 mg PO DAILY 06/19/24 07/06/24 History carboxymethylcellulose sodium 1 % 1 drp ophthalmic (eye) BID PRN Dry 06/19/24 07/06/24 History eye liquid gel drops Eyes magnesium oxide 500 mg capsule 500 mg PO DAILY 06/19/24 07/06/24 History Past Med/Surg History Problem List (Updated 07/06/24 @ 21:31 by Jey Lopez MD) Sepsis Complicated urinary tract infection (Acute) Aspiration pneumonia (Acute) Thrombocytopenia (Acute) Anemia (Acute) Prolonged QT interval History of hypercalcemia MGUS (monoclonal gammopathy of unknown significance) Chronic anemia Venous stasis dermatitis of both lower extremities Wound of sacral region History of urinary retention Pardo catheter in place prior to arrival Acute hyponatremia (Acute) Acute UTI (Acute) Acute confusion due to infection Suspected UTI Age-related cognitive decline Dysphagia Chest wall contusion Hypomagnesemia Frequent falls Hypercalcemia (Acute) Chronic venous insufficiency (Chronic) Traumatic open wound of lower leg (Acute) Hypokalemia Generalized weakness (Acute) Acute on chronic heart failure with preserved ejection fraction (HFpEF) Elevated troponin (Acute) Hypoxia (Acute) CHF (congestive heart failure) (Acute) Nausea (Acute) Surgical wound, non healing (Acute) Venous insufficiency of both lower extremities (Chronic) Infected hematoma (Acute) Infected wound Syncope Cellulitis of leg, right DVT prophylaxis Thrombocytopenia Anemia Hematoma Laceration of lip (Acute) Ambulatory dysfunction (Acute) Acute knee pain (Acute) Fall (Acute) Paroxysmal atrial fibrillation (Acute) controlled w/ meds Dr Meyer Chronic diastolic CHF (congestive heart failure) Medical History Catheter-associated urinary tract infection Left lower lobe pneumonia Altered mental status Chest pain MGUS (monoclonal gammopathy of unknown significance) Seasonal allergies Incontinence of urine Nausea and vomiting after administration of anesthetic agent History of COVID-19 2020- no hosp; resolved GERD (gastroesophageal reflux disease) Surgical History Hx of cardiac catheterization ~2018, prior to valve replacement, no stents History of esophagogastroduodenoscopy (EGD) Hx of colonoscopy H/O: hysterectomy S/P repair of paraesophageal hernia History of total knee arthroplasty S/P aortic valve replacement with bioprosthetic valve ~2018- LIN[facility] Guzman Family History Other Cancer Diabetes Social History Smoking Status: Former smoker Tobacco Type: Cigarettes Second Hand Exposure: No; Do You Dip or Chew Tobacco: No; Hx Alcohol Use: No Hx Substance Use: No Preferred Language: Polish Communication Ability: Effective Visual Impairment: Severely Limited Hearing Ability: Hard of Hearing Cytology Laboratory Manager Required: No Beliefs That Will Affect Care: None marital status: / Current Living Situation: Personal Care Facility Current Living Situation Comment: [facility] current occupational status: retired How many Children do You have: 3 How many Children do You have Comment: all able to assist with care Feels Safe at Home: Yes Diet: regular caffeine: Yes during the past year weight has: remained stable Assistive Devices: Glasses and Walker Review of Systems Review of Systems: All systems reviewed & are unremarkable except as noted in Subjective Physical Exam Physical Exam: Physical Exam: Vitals signs as noted above General Appearance: Thin, frail, ill-appearing, milddistress Head: normocephalic, Atraumatic Eyes: normal inspection, EOMI Neck: supple, Trachea midline Respiratory/Chest: Decreased breath sounds, No accessory muscle use Cardiovascular: Irregularly irregular, +murmur Abdomen/GI:Soft, Non tender, Bowel sounds present Extremities/Musculoskeletal:normal inspection, no edema, chronic venous stasis changes Neurologic/Psych:AAOX2, lethargic, grossly moves all extremities Skin: normal color, warm Results & Data Results & Data Vital Signs (Past 12 Hours) Vital Signs Temp Pulse Pulse Resp BP BP Pulse Ox 07/06/24 19:00 89 18 191/96 H 100 07/06/24 17:12 106 H 07/06/24 17:06 07/06/24 17:06 36.7 C 82 28 H 176/114 H 94 O2 Del Method O2 Flow Rate 07/06/24 19:00 Nasal Cannula 6 07/06/24 17:12 07/06/24 17:06 Room Air 07/06/24 17:06 Room Air Laboratory Results Short CBC 07/06/24 Range/Units 17:05 WBC 12.07 H (4.8-10.8) K/ul Hgb 11.0 L (12.0-16.0) g/dl Hct 32.3 L (37.0-47.0) % Plt Count 138 (130-400) K/uL BMP 07/06/24 17:05 Sodium 135 L Potassium 3.4 L Chloride 102 Carbon Dioxide 24 BUN 14 Creatinine 0.58 L Glucose 150 H Calcium 8.0 L Liver Function 07/06/24 Range/Units 17:05 Total Bilirubin 0.7 (0.2-1.0) mg/dl AST 14 (13-39) U/L ALT 11 (7-52) U/L Alkaline Phosphatase 83 (34-104) U/L Albumin 2.7 L (3.4-5.0) gm/dl Urine 07/06/24 07/06/24 Range/Units 17:12 18:46 Urine Color Yellow Yellow Urine Appearance Turbid A Cloudy A (Clear) Urine pH >= 9.0 H 8.5 H (4.5-7.5) Ur Specific [place] 1.014 1.013 (1.000-1.030) Urine Protein 2+ H 2+ H (Negative) Urine Glucose (UA) Negative Negative (Negative) Diagnostic Findings --Chest CTA:No traumatic change noted in the chest, abdomen or pelvis. Bronchitis and peribronchial pneumonia in both lungs. Diffuse esophageal thickening consistent with esophagitis. Distended stomach. Consider gastroparesis. Extensive colonic diverticulosis without diverticulitis. --ABD CT:No traumatic change noted in the chest, abdomen or pelvis. Bronchitis and peribronchial pneumonia in both lungs. Diffuse esophageal thickening consistent with esophagitis. Distended stomach. Consider gastroparesis. Extensive colonic diverticulosis without diverticulitis.
[2024-07-06] MEDS ORDERED: ALUMINUM/MAGNESIUM SUSP 30 ML UDC PO PRN (23:12)
[2024-07-06] MEDS ORDERED: FAMOTIDINE 20 MG TAB PO PRN (23:12)
[2024-07-06] MEDS ORDERED: ACETAMINOPHEN 325 MG TAB PO PRN (23:12)
[2024-07-06] MEDS ORDERED: ONDANSETRON 4 MG OD TAB PO PRN (23:12)
[2024-07-06] MEDS ORDERED: MAGNESIUM HYDROXIDE SUSP 30 ML UDC PO PRN (23:12)
[2024-07-06] MEDS ORDERED: LORazepam 2 MG/1 ML VIAL IV PRN (23:12)
[2024-07-06] MEDS ORDERED: MoRPHine SULFATE 10 MG/0.5 ML UDP PO PRN (23:12)
[2024-07-06] MEDS ORDERED: HALOPERIDOL ORAL SOLN 2 MG/ML PO PRN (23:12)
[2024-07-06] MEDS ORDERED: MoRPHine SULFATE 2 MG/ML CARP IV PRN (23:12)
[2024-07-06] MEDS ORDERED: ONDANSETRON INJ 2 MG/ML 2 ML VIAL IV PRN (23:12)
[2024-07-06] MEDS ORDERED: MELATONIN 3 MG TAB PO PRN (23:12)
[2024-07-06] MEDS ORDERED: ATROPINE SULFATE 1% OP SOLN 5 ML BTL SL PRN (23:12)
[2024-07-06] MEDS ORDERED: ARTIFICIAL TEARS OP PRN (23:52)
[2024-07-06 23:59] VITALS: BP 174/95; PULSE 94; RESP 16; TEMP 97.5; O2SAT 96
[2024-07-07] MEDS: DOCUSATE SODIUM 100 MG CAP PO SCH ×2 (00:42→09:45)
[2024-07-07] MEDS: ONDANSETRON INJ 2 MG/ML 2 ML VIAL IV PRN (04:37)
--- OUTSIDE RECORDS SUMMARY | 2024-07-07 09:19 | External Medical Summary | Summary of Care ---
Author Name Unknown Organization [facility] Address [address] [place] [address] Phone [phone] Care Team Providers Care Spa Technician Name Role Phone Eliazar Reis MD Primary Care Provider [phone] Reason for Visit * Reason Onset Date Comments Skilled Nursing Visit 06/29/2024 Encounter Details Date Type Department Care Team (Late st Contact Info) Description 06/27/2024 8:30 AM EDT Skilled Nursing Visit [address] [address] Charlene Nelson PA-C [address] [place] [address] Intertrigo*; Generalized osteoarthritis Allergies Active Allergy Reactions Criticality Noted Date Comments Oxaprozin Psych complications High 06/18/2016 depression Other Reaction(s): MAKES FEEL DEPRESSED Simvastatin Other (Please comment) High 06/18/2016 Critical liver lab results Other Reaction(s): ELEVATED LIVER ENZYMES documented as of this encounter (statuses as of 06/29/2024) Medications prednisoLONE Acetate 1 % Ophthalmic Suspension (Pred Forte) Instill 1 Drop into both eyes in the morning and 1 Drop at noon and 1 Drop before bedtime. 45 mL 3 07/16/19 23 Active Additional Information Patient taking differently:1 Drop Both eyesDaily(AM), Reported on 06/15/2024 Furosemide 20 MG Oral Tablet (Lasix)Indications :Bilateral lower extremity edema TAKE 1 TABLET BY MOUTH DAILY 90 Tablet 1 02/04/20 23 Active Additional Information Patient taking differently:20 mg OralDAILY PRN, Other, edema, Indications: taking as needed, Reported on 06/15/2024 Ondansetron 4 MG Oral Tablet Disintegrating (Zofran)Indication [...] morning. 100 Tablet 3 01/12/20 24 Active Fexofenadine HCl 180 MG Oral Tablet (Helen Allergy) Take 1 Tablet by mouth every afternoon. Active Saccharomyces boulardii 250 MG Oral Capsule (Florastor) Take 1 Capsule by mouth in the morning. Active Famotidine 20 MG Oral Tablet (Pepcid) Take 1 Tablet by mouth daily as needed for Heartburn. Active Magnesium Oxide -Mg Supplement 500 MG Oral Tablet Take 1 Tablet by mouth in the morning. 90 Tablet 1 06/16/19 25 Active documented as of this encounter (statuses as of 06/29/2024) Active Problems Problem Noted Date Diagnosed Date Presence of indwelling Pardo catheter 06/28/2024 Urinary retention with incomplete bladder emptyi ng 06/28/2024 Other pancytopenia 06/15/2024 S/P left atrial appendage ligation 03/11/2023 Age-related osteoporosis wit hout current pathological fracture 12/07/2022 Moderate tricuspid regurgitation 10/17/2022 Pulmonary hypertension 10/17/2022 Generalized osteoarthritis 07/27/2021 Diastolic CHF, chronic 04/07/2021 S/P repair of paraesophageal hernia 12/23/2020 Urge incontinence of urine 07/23/2020 MGUS (monoclonal gammopathy of unknown significa nce) 07/15/2020 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 Increased risk for Hereditary Hemochromatosis. 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 Not on file Not on file Not on file documented as of this encounter Last Filed Vital Signs Vital Sign Reading Time Taken Comments Blood Pressure 131/54 06/27/2024 4:46 PM EDT Pulse 70 06/27/2024 4:46 PM EDT Temperature 36.8 C (98.2 F) 06/27/2024 4:46 PM ED T Respiratory Rate 06/27/2024 4:46 PM EDT Oxygen Saturation 95% 06/27/2024 4:46 PM EDT room air Inhaled Oxygen Concentration - - Weight - [...] documented in this encounter Progress Notes * Charlene Nelson PA-C - 06/27/2024 4:49 PM EDT Name: Shannon Salazar Date of : 1935 This note pertains to care provided at [facility]. Please see facility record for original note. This note is not to be edited or addended in [employer]. Editing or addending needs to occur in the facility's medical record. Chief Complaint Patient presents with Skilled Nursing Visit TRANSITION EVENT: Type: Non-applicable Date: June 27 Code Status: No Code SUBJECTIVE: Shannon Salazar is a 88 year old female HPI: pt recently admitted to [facility], seen today at request of nursing staff due to rash below right breast. Family also requesting addition of routine tylenol, as she had been taking this in the past. Pt denies chest pain, dyspnea, fever, chills, body aches, nausea, vomiting, diarrhea, headache, dizziness. 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) Urge incontinence of urine S/P repair of paraesophageal hernia Diastolic CHF, chronic (HCC) Generalized osteoarthritis Moderate tricuspid regurgitation Pulmonary hypertension (HCC) Age-related osteoporosis without current pathological fracture S/P left atrial appendage ligation Other pancytopenia (HCC) Presence of indwelling Pardo catheter Urinary retention with incomplete bladder emptying Review of patient's allergies indicates: Allergen Reactions Oxaprozin Psych complications depression Other Reaction(s): MAKES FEEL DEPRESSED Simvastatin Other (Please comment) Critical liver lab results Other Reaction(s): ELEVATED LIVER ENZYMES Medications: Pt's current medication list is maintained at [facility] and was reviewed at this visit. Review of Systems: Per HPI OBJECTIVE: BP 131/54 | Pulse 70 | Temp 36.8 C (98.2 F) | Resp 19 | SpO2 95% Comment: room air General: alert and no distress Heart: irregularly irregular Lungs: chest symmetric with normal AP diameter, no chest deformities noted, no chest wall tenderness, lungs clear to auscultation Abdomen: abdomen soft, non-tender, normal bowel sounds, no masses or organomegaly, and no rebound or guarding Extremities: less than 2 second capillary refill, no joint deformities, effusion, or inflammation, no edema Skin: pink rash noted below bilateral breasts ASSESSMENT/PLAN: senior living chart (outside system) reviewed for vital signs, nursing notes, CODE STATUS, and most up to date medication list Discussed management with other clinician during the visit (facility RN) Intertrigo (Primary) Nystatin External Powder [id number] UNIT/GM (Nystatin (Topical)) - Apply to below breasts topically every morning and at bedtime for intertrigo for 10 Days Generalized osteoarthritis Tylenol 650 mg twice daily Follow up: as needed if worsening or not improving 15 total minutes were spent in this visit. This total time includes pre-visit chart review, obtaining / reviewing separately obtained medical history, and performing the medically appropriate historyand exam. It also includes patient / family education and counseling, placing the appropriate orders, placing referrals and communicating with other medical providers, documenting clinical information in the EHR, interpreting / communicating results, and coordinating patient care. documented in this encounter Plan of Treatment Upcoming Encounters Date Type Department Care Team (Late st Contact Info) Description 07/10/2024 10:45 AM EDT Imaging Radiology [facility] [address] [facility] [address] [place] [phone] 07/18/2024 10:00 AM EDT Office Visit Hematology/Oncology [facility] [address] [facility] [place] [phone] Leon Napier MD [address] [facility] [place] [address] 07/20/2024 10:40 AM EDT Office Visit Rheumatology [facility] [address] [phone] Juan Pablo Rebolledo MD [address] [place] [address] [place] [address] 09/12/2024 11:00 AM EDT Office Visit Urology Matias Small [address] [place] [address] Kayla Rick PA-C [address] [place] [address] 09/21/2024 1:20 PM EDT Office Visit Family Practice [facility] [address] [place] [address] Eliazar Reis MD [address] [place] [address] 12/24/2024 3:30 PM EDT Office Visit Cardiology, [facility] [address] [place] [phone] Pollo Meyer MD [address] [place] [address] Health Maintenance Due Date Last Done Comments Adult Wellness Visit 03/11/2022 03/11/2021 Fasting Serum Ferritin Hereditary Hemochromatosis (HFE) Annual,All Ages 06/17/2022 06/17/2021 COVID-19 Vaccine (2023-2 5 season) 2024 12/30/2023, 03/26/2023, 02/15/2022, Additional [...] D LEVEL ONCE IN A LIFETIME-USE SMARTSET# [id number] Completed 06/11/2024, 07/08/2023, 12/07/2022, Additional history exists [...] this encounter Medical Devices Implanted Type Area Ship Fastener Device Identifier Shelf Expiration Date Model / Serial / Lot Sut Steel 6 [id number] - [id number] Implanted:Qty : 4 on 09/09/2016 by John Olvera MD at [place] [facility] [place] N/A: Chest JNJ : [employer] 05/11/2021 [id number] / / [id number] Atriclip 35mm [id number] - [id number] Implanted:Qty : 1 on 09/09/2016 by John Olvera MD at OR [facility] N/A: Heart ATRICURE 08/09/2018 [id number] / / [id number] Valve Heart Aortic Epic 23mm - [id number] - [id number] Implanted:Qty : 1 on 09/09/2016 by John Olvera MD at OR [facility] N/A: Aorta [employer]ES[employer] : CARDIOVASCULAR 02/03/2020 [id number] / [id number] / Allomax Mesh 2 X 4 [id number] - [id number] - [id number] Implanted:Qty : 1 on 12/10/2020 by Jenny Brooks MD at OR [facility] N/A: Abdomen CR BARD : DAVOL 03/10/2025 [id number] / [id number] / [id number] Description:PEH documented as of this encounter Visit Diagnoses Diagnosis Intertrigo- Primary Other specified erythematous condition Generalized osteoarthritis Generalized osteoarthrosis, unspecified site documented in this encounter Advance Directives * [...] and were consensually agreed upon. Care Teams Spa Technician Relationship Specialty Start Date End Date Eliazar Reis MD [address] [place] [address] PCP - General Family Medicine 09/02/20 documented as of this encounter"
--- OUTSIDE RECORDS SUMMARY | 2024-07-07 09:19 | External Medical Summary | Summary of Care ---
Author Name Unknown Organization [facility] Address [address] [place] [address] Phone [phone] Care Team Providers Care Strip Deburrer Name Role Phone Eliazar Reis MD Primary Care Provider [phone] Reason for Visit * Reason Onset Date Comments Long Term Visit 07/02/2024 Encounter Details Date Type Department Care Team (Late st Contact Info) Description 07/02/2024 8:45 AM EDT Long Term Visit [address] [address] Charlene Nelson PA-C [address] [place] [address] Nausea and vomiting, unspecified vomiting type* Allergies Active Allergy Reactions Criticality Noted Date Comments Oxaprozin Psych complications High 06/18/2016 depression Other Reaction(s): MAKES FEEL DEPRESSED Simvastatin Other (Please comment) High 06/18/2016 Critical liver lab results Other Reaction(s): ELEVATED LIVER ENZYMES documented as of this encounter (statuses as of 07/02/2024) Medications prednisoLONE Acetate 1 % Ophthalmic Suspension [...] morning. 90 Tablet 1 06/16/19 25 Active Carboxymethylcellu lose Sod PF 0.5 % Ophthalmic Solution (Refresh Plus) Instill 1 Drop into both eyes in the morning and 1 Drop before bedtime. 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 Increased risk for Hereditary Hemochromatosis. 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 on file Not on file Not on file documented as of this encounter Last Filed Vital Signs Vital Sign Reading Time Taken Comments Blood Pressure 122/84 07/02/2024 1:35 PM EDT Pulse 78 07/02/2024 1:35 PM EDT Temperature 36.8 C (98.2 F) 07/02/2024 1:35 PM ED T Respiratory Rate 18 07/02/2024 1:35 PM EDT Oxygen Saturation 96% 07/02/2024 1:35 PM EDT room air Inhaled Oxygen Concentration - - Weight 52.4 kg (115 lb 9.6 oz) 07/02/2024 1:35 P M EDT Height - - Body Mass Index 21.84 06/11/2024 2:51 PM EST documented in this [...] Progress Notes * Charlene Nelson PA-C - 07/02/2024 8:45 AM EDT Name: Shannon Salazar Date of : 1935 This note pertains to care provided at [facility]. Please see facility record for original note. This note is not to be edited or addended in [employer]. Editing or addending needs to occur in the facility's medical record. Chief Complaint Patient presents with Long Term Visit TRANSITION EVENT: Type: Non-applicable Date: July 02 Code Status: No Code SUBJECTIVE: Shannon Salazar is a 88 year old female HPI: Pt with episode of vomiting this AM, given ondansetron with unclear improvement thus far. She denies abdominal pain. Admits to fatigue. Did have a small loose BM this morning. Staff repots no cough, hematuria, pyuria, black/bloody BMs. PMH: Patient Active Problem List Diagnosis Dyslipidemia [...] Pt's current medication list is maintained at [facility] and was reviewed at this visit. Review of Systems: Per HPI OBJECTIVE: BP 122/84 | Pulse 78 | Temp 36.8 C (98.2 F) | Resp 18 | Wt 52.4 kg (115 lb 9.6 oz) | SpO2 96% Comment: room air | BMI 21.84 kg/m | BSA 1.5 m 98.4 General: thin and frail, sitting up in bed, sleeping but did wake easily, emesis basin with + yellow emesis noted at her side Head: Normocephalic Eye Exam: conjunctiva are pink and non-injected, sclera clear Oropharynx: lips, buccal mucosa, and tongue normal and mucous membranes are moist Heart: tachycardia Lungs: chest symmetric with normal AP diameter, no chest deformities noted, no chest wall tenderness, lungs clear to auscultation Abdomen: abdomen soft, non-tender, slightly hyperactive bowel sounds, and no masses or organomegaly Extremities: less than 2 second capillary refill, no joint deformities, effusion, or inflammation, no edema Neuro Exam: alert & oriented x 2 with fluent speech ASSESSMENT/PLAN: halfway chart (outside system) reviewed for vital signs, nursing notes, CODE STATUS, and most up to date medication list Discussed management with other clinician during the visit (facility RN) Nausea and vomiting, unspecified vomiting type (Primary) Continue zofran 4 mg every 6 hrs as needed for nausea/vomiting Encourage oral fluids Recheck if worsening or not improving, or if new symptoms develop Follow up: as needed 33 total minutes were spent in this visit. [...] Description 07/10/2024 10:45 AM EDT Imaging Radiology [facility] [place] [address] [place] [phone] 07/18/2024 10:00 AM EDT Office Visit Hematology/Oncology [facility] [address] [place] [phone] Leon Napier MD [address] [place] [address] 07/20/2024 10:40 AM EDT Office Visit Rheumatology [facility] [address] [phone] Juan Pablo Rebolledo MD [facility], [place] [address] 09/12/2024 11:00 AM EDT Office Visit Urology Matias Small [address] [place] [address] Kayla Rick PA-C [address] [address] 09/21/2024 1:20 PM EDT Office Visit Family Practice [facility] [address] [address] Eliazar Reis MD [address] [place] [address] 12/24/2024 3:30 PM EDT Office Visit Cardiology, [facility] [address] [phone] Pollo Meyer MD [address] [place] [address] Health Maintenance Due Date Last Done Comments [...] D LEVEL ONCE IN A LIFETIME-USE SMARTSET# [id number] Completed 06/11/2024, 07/08/2023, 12/07/2022, Additional history exists [...] this encounter Medical Devices Implanted Type Area Ginseng Farmer Device Identifier Shelf Expiration Date Model / Serial / Lot Sut Steel 6 M654g - [id number] Implanted:Qty : 4 on 09/09/2016 by [place] Olver[place] [facility] [place]: Chest JNJ : [employer] 05/11/2021 [id number] / / [id number] Atriclip 35mm [id number] - [id number] Implanted:Qty : 1 on 09/09/2016 by John Olvera MD [place] [facility] [place]A: Heart ATRICURE 08/09/2018 [id number] / / [id number] Valve Heart Aortic Epic 23mm - [id number] - [id number] Implanted:Qty : 1 on 09/09/2016 by John Olvera MD [place] [facility] N/A: Aorta [employer] LES[employer] : CARDIOVASCULAR 02/03/2020 [id number] / [id number] / Allomax Mesh 2 X 4 [id number] - [id number] - [id number] Implanted:Qty : 1 on 12/10/2020 by Jenny Brooks MD [place] [facility]A: Abdomen CR BARD : DAVOL 03/10/2025 [id number] / [id number] / [id number] Description:PEH documented as of this encounter Visit Diagnoses Diagnosis Nausea and vomiting, unspecified vomiting type- Primary documented in this encounter Advance Directives [...] and were consensually agreed upon. Care Teams Strip Deburrer Relationship Specialty Start Date End Date Eliazar Reis MD [address] [place] [address] PCP - General Family Medicine 09/02/20 documented as of this encounter"
--- OUTSIDE RECORDS SUMMARY | 2024-07-07 09:19 | External Medical Summary | Summary of Care ---
Author Name Unknown Organization [facility] Address [address] [place] [address] Phone [phone] Care Team Providers Care Hat Designer Name Role Phone Eliazar Reis MD Primary Care Provider [phone] Reason for Visit * Reason Onset Date Comments Prison Visit 07/05/2024 Encounter Details Date Type Department Care Team (Latest Contact Info) Description 07/05/2024 11:30 AM EDT Prison Visit [address] [place] [address] Sweetie Guevara MD [address] [place] [address] [place] [address] Adjustment disorder with anxious mood*; Other pancytopenia (HCC); Loss of weight; History of aspiration pneumonia; MGUS (monoclonal gammopathy of unknown significance); Paroxysmal atrial fibrillation (HCC); Diastolic CHF, chronic (HCC); Urinary retention with incomplete bladder emptying; Presence of indwelling Pardo catheter Allergies Active Allergy Reactions Criticality Noted Date Comments Oxaprozin Psych complications High 06/18/2016 depression Other Reaction(s): MAKES FEEL DEPRESSED Simvastatin Other (Please comment) High 06/18/2016 Critical liver lab results Other Reaction(s): ELEVATED LIVER ENZYMES documented as of this encounter (statuses as of 07/06/2024) Medications prednisoLONE Acetate 1 % Ophthalmic Suspension [...] one capsule at bedtime 06/29/19 25 Active Mirtazapine 15 MG Oral Tablet (Remeron) Take 1 Tablet by mouth at bedtime. 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 Increased risk for Hereditary Hemochromatosis. Paroxysmal atrial fibrillation 09/10/2016 S/P AVR (aortic valve replacement) 09/09/2016 Dyslipidemia 06/18/2016 Gastroesophageal reflux disease without esophagi tis 06/18/2016 documented as of this encounter (statuses as of 07/06/2024) Resolved Problems Problem Noted Date Diagnosed Date [...] as of this encounter (statuses as of 07/06/2024) Immunizations Name Administration Dates Next Due COVID-19 mRNA, LNP-s, No Pre serve, 2-Dose Series (Moderna) 06/06/2020,05/09/2020 COVID-19, MRNA-LNP, PF, 50 M CG/0.5 mL, 12 YRS AND ABOVE, IM (MODERNA-Spikevax) 12/30/2023,03/26/2023 COVID-19, mRNA, LNP-s, PF, B ooster, 100mcg/0.5mg (Moderna) 05/13/2021 Covid-19, Mrna, Lnp-s, Pf, B ivalent, 30 Mcg, IM, 12 yrs and above (Flipps) 11/07/2021 Pneumococcal Conjugate Vacc, 13 Valent (Prevnar) [...] Job 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 (5 years old or older) Answer Date of Assessment Author Yes 12/10/2020 8:27 PM EDT Casey Schuler RN * Do you have difficulty dressing or bathing? (5 years old or older) Answer Date of Assessment Author Yes 12/10/2020 8:27 PM KATET Casey Schuler RN * Because of a [...] documented in this encounter Progress Notes * Sweetie Guevara MD - 07/05/2024 4:33 PM EDT Name: Shannon Salazar Date of :1935 TRANSITION EVENT: Type: Non-applicable Date: July 05 Code Status: No Code This note pertains to care provided at [facility]. Please see facility medical record for original note. This note is not to be edited or addended in [email or web address]. Editing or addending needs to occur in the facilities medical record. Subjective: Shannon Salazar is a 88 year old female. Patient being seen for anxiety, yelling out, recent medication changes Chief Complaint Patient presents with Prison Visit HPI: Brief Clinical History Ms. Salazar is a 88 year old female last seen in [facility] on 07/02/2024 by Charlene Nelson She has a h/o the following chronic conditions indicated on the problem list: Chronic Conditions Diastolic CHF, chronic (HCC) Paroxysmal atrial fibrillation (HCC) Pulmonary hypertension (HCC) Asked to see patient regarding patient's anxiety, yelling out, and ongoing fear of falling that is interfering with therapy. Patient was admitted to [facility] with aspiration pneumonia and pancytopenia inprocess of being worked up (felt to be probable multiple myeloma). Patient was not doing well whilein the hospital and hospice was being considered. Hospitalist discontinued many routine medications prior to her discharge to this facility. One medication that was discontinued was Remeron 15 mg, which was started for depression, anxiety, as well as for appetite stimulation. Patient is receiving therapy and family has not yet decided on hospice. Patient is still scheduled for PET scan 07/10/24 andfor hematology follow-up with Dr. Napier on 07/18/24. Patient continues to be yelling out frequently. Patient has been yelling out when she is transferred and with therapy. Patient is very fearful of falling. Patient seen today and states she "just woke up" and is not ready to be out of bed yet. She is seenseated up in a wheelchair and therapy was working with her. Patient noted to be screaming when attempted to stand with therapy. Patient denies having any pain. Discussed Remeron and patient state "I don't want any more medications." Referral to psychiatry placed yesterday. Patient Active Problem List Diagnosis Dyslipidemia Gastroesophageal [...] catheter Urinary retention with incomplete bladder emptying Adjustment disorder with anxious mood Loss of weight Past Medical History: Diagnosis Date Age-related osteoporosis [...] echocardiogram 07/01/2016 Urge incontinence of urine 07/23/2020 Past Surgical History: Procedure Laterality Date ANESTH, CS HYSTERECTOMY ANESTH, LUMBAR SPINE/CORD SURGERY ARTHROPLASTY KNEE TOTAL Left 02/11/2017 Knee replacement CORNEAL TISSUE TRANSPLANT Bilateral CYSTO/URETERO, STONE REMOVE DILATION AND CURETTAGE (D&C) EGD, FLEXIBLE, DIAGNOSTIC N/A 12/10/2020 ESOPHAGOGASTRODUODENOSCOPY (EGD), FLEXIBLE, TRANSORAL, DIAGNOSTIC performed by Jenny Brooks MD at [place] [facility] EGD, FLEXIBLE, DIAGNOSTIC 07/18/2020 Reflux esophagitis, duodenitis, hiatal hernia / INPT [facility] INFORMATION back surgery PARAESOPHAGEAL HERNIA REPAIR, LAP W/ MESH N/A 12/10/2020 LAPAROSCOPIC PARAESOPHAGEAL HERNIA REPAIR W/MESH performed by Jenny Brooks MD at [place] [facility] PARAESOPHAGEAL HERNIA REPAIR, LAP W/O MESH N/A 12/10/2020 LAPAROSCOPIC PARAESOPHAGEAL HERNIA REPAIR WO/ MESH performed by Jenny Brooks MD at [place] [facility] REMOVAL OF KIDNEY STONE, UP TO 2CM REMOVAL OF PELVIC STRUCTURES hysterectomy REPLACEMENT AORTIC VALVE, BYPASS WITH PROSTHETIC VALVE N/A 09/09/2016 REPLACEMENT AORTIC VALVE, BYPASS WITH PROSTHETIC VALVE performed by John Olvera MD at [place] [facility] Family History Problem Relation Name Age of Onset Cancer Mother breast Diabetes Mother Cancer Father bladder Renal Hx Father solitary kidney Arthritis Brother knee replacement Cataracts Brother Blindness Aunt (Unspecified) Family Status Relation Status Mo Fa Bro Sonja Alive Sonja Alive Sonja Alive AUNT Social History Socioeconomic History Marital status: Spouse name: Not on file Number of children: Not on file Years of education: 3 Highest education level: Not on file Occupational History 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 Please refer to MAR in the facility's medical record forthe most up-to-date medication list as this cannot be edited in [employer]. Review of Systems: As per HPI OBJECTIVE: PHYSICALEXAM: I reviewed the most recent facilities vitals. General: alert, no distress, very thin, frail, elderly female seated in a wheelchair Head: Normocephalic, No masses, lesions, tenderness or abnormalities Eye Exam: Conjunctiva are pink and non-injected, sclera clear Ears: External ears normal Nose: no mucosal erythema, no mucosal edema, no purulent discharge Oropharynx: no exudate, no erythema, lips, buccal mucosa, and tongue normal and mucous membranes are moist Neck: supple, no adenopathy, non-tender, neck veins flat, trachea midline Heart: regular rate & rhythm, no murmurs and no gallops Lungs: normal respiratory rate and rhythm, no chest wall tenderness, lungs clear to auscultation Pulses: radial=2/4 Abdomen: abdomen soft, non-tender, normal bowel sounds and no masses or organomegaly Extremities: no edema, no clubbing, no cyanosis, +chronic venous changes of bilateral lower extremities Neuro Exam: alert & oriented x 3. Follows commands, no focal motor/sensory deficits ASSESSMENT: Adjustment disorder with anxious mood (Primary)--restart Remeron 15 mg at bedtime. Was stopped while admitted to the hospital in preparation for transition to hospice but hospice not yet being pursued. Has been anxious and yelling out. Psychiatry consult pending. Placed call to daughter, Lyudmila, and left message to call back. Can speak with staff as well. Other pancytopenia (HCC)--recommend follow-up with Dr. Napier 07/18/24 as scheduled for further work up. Also scheduled for PET scan 07/10/24. This will hopefully give better insight into her disease process and prognosis and better guide decision on whether to pursue treatment or transition to hospice. Loss of weight--restart Remeron as above. History of aspiration pneumonia--resolved. Has slight lingering cough. MGUS (monoclonal gammopathy of unknown significance)--follows with hematology. Possible transformation to multiple myeloma being investigated. Paroxysmal atrial fibrillation (HCC)--continue amiodarone 200 mg daily. Diastolic CHF, chronic (HCC)--appears compensated. Urinary retention with incomplete bladder emptying--continue Pardo Presence of indwelling Pardo catheter PLAN: Patient very anxious, yelling out, fearful of falling, screaming when moved. Denies any pain. Will restart Remeron 15 mg at bedtime, which was discontinued while in the hospital due to reducing medications in preparation of transition to hospice. However, patient has improved and family is not surewhether they will pursue hospice at this time. Psychiatry consult pending. Recommend that she keep appointment 07/10/24 for PET scan and the follow-up with Dr. Napier on 07/18/24 in order to determine prognosis and complete work up of possible multiple myeloma. , Continue present medication(s):as ordered., and Follow up as needed. Jail Home Treatment Given: n/a Electronically signed by: Sweetie Guevara MD Over 35 minutes were spent in this visit more than half the time was spent counselling or coordinating care. documented in this encounter Plan of Treatment Upcoming Encounters Date Type Department Care Team (Late st Contact Info) Description 07/10/2024 10:45 AM EDT Imaging Radiology [facility] [address] [place] [address] 07/18/2024 10:00 AM EDT Office Visit Hematology/Oncology [facility] [place] [address] [facility] [place] [phone] Leon Napier MD [address] [place] [address] 07/20/2024 10:40 AM EDT Office Visit Rheumatology [facility] [address] [place] [phone] Juan Pablo Rebolledo MD [facility] [place] [address] 09/12/2024 11:00 AM EDT Office Visit Urology [facility] [address] [place] [address] Kayla Rick PA-C [address] [place] [address] 09/21/2024 1:20 PM EDT Office Visit Family Practice [facility] [address] [place] [address] Eliazar Reis MD [address] [place] [address] 12/24/2024 3:30 PM EDT Office Visit Cardiology, [facility] [address] [place] [phone] Pollo Meyer MD [address] [place] [address] Health Maintenance Due Date Last Done Comments Adult Wellness Visit 03/11/2022 03/11/2021 Fasting Serum Ferritin Hereditary Hemochromatosis (HFE) Annual,All Ages 06/17/2022 06/17/2021 COVID-19 Vaccine (8 2023-2 5 season) 2024 12/30/2023, 03/26/2023, 02/15/2022, Additional [...] D LEVEL ONCE IN A LIFETIME-USE SMARTSET# [id number] Completed 06/11/2024, 07/08/2023, 12/07/2022, Additional history exists [...] this encounter Medical Devices Implanted Type Area Senior Risk Analyst Device Identifier Shelf Expiration Date Model / Serial / Lot Sut Steel 6 M654g - [id number] Implanted:Qty : 4 on 09/09/2016 by John Olvera MD at [place] [facility] N/A: Chest JNJ : [employer] 05/11/2021 [id number] / / [id number] Atriclip 35mm [id number] - [id number] Implanted:Qty : 1 on 09/09/2016 by John Olvera MD at [place] [facility] N/A: Heart ATRICURE 08/09/2018 [id number] / / [id number] Valve Heart Aortic Epic 23mm - [id number] - [id number] Implanted:Qty : 1 on 09/09/2016 by John Olvera MD at [place] [facility] N/A: Aorta ST LEAS : CARDIOVASCULAR 02/03/2020 [id number] 00 / [id number] / Allomax Mesh 2 X 4 [id number] - [id number] - [id number] Implanted:Qty : 1 on 12/10/2020 by Jenny Brooks MD at [place] [facility] N/A: Abdomen CR BARD : DAVOL 03/10/2025 [id number] / [id number] / [id number] Description:PEH documented as of this encounter Visit Diagnoses Diagnosis Adjustment disorder with anxious mood- Primary Adjustment disorder with anxiety Other pancytopenia (HCC) Other pancytopenia Loss of weight History of aspiration pneumonia MGUS (monoclonal gammopathy of unknown significance) Monoclonal paraproteinemia Paroxysmal atrial fibrillation (HCC) Atrial fibrillation Diastolic CHF, chronic (HCC) Chronic diastolic heart failure Urinary retention with incomplete bladder emptying Incomplete bladder emptying Presence of indwelling Pardo catheter documented in this encounter Advance Directives * [...] and were consensually agreed upon. Care Teams Hat Designer Relationship Specialty Start Date End Date Eliazar Reis MD [address] [place] [address] PCP - General Family Medicine 09/02/20 documented as of this encounter
--- OUTSIDE RECORDS SUMMARY | 2024-07-07 09:20 | External Medical Summary | Summary of Care ---
Author Name Unknown Organization [facility] Address [address] [place] [address] Phone [phone] Care Team Providers Care Cable Ferryboat Operator Name Role Phone Eliazar Reis MD Primary Care Provider [phone] Reason for Visit * Reason Onset Date Comments Order Request 06/19/2024 Encounter Details Date Type Department Care Team (Late st Contact Info) Description 06/19/2024 Telephone Access Center, [place] [address] [facility] *DO NOT REMOVE THIS DEPARTMENT* [place] [address] Services, Scheduling [address] [place] [address] Order Request Allergies Active Allergy Reactions Criticality Noted Date Comments Oxaprozin Psych complications High 06/18/2016 depression Other Reaction(s): MAKES FEEL DEPRESSED Simvastatin Other (Please comment) High 06/18/2016 Critical liver lab results Other Reaction(s): ELEVATED LIVER ENZYMES documented as of this encounter (statuses as of 06/20/2024) Medications Docusate Sodium 100 MG Oral Capsule [...] as of this encounter (statuses as of 06/20/2024) Active Problems Problem Noted Date Diagnosed Date [...] Overview (02/18/2020): 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 Increased risk for Hereditary Hemochromatosis. 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 Tech state that order should be PET CT WHOLE BODY. Please place new order documented in this encounter Plan of Treatment Upcoming Encounters Date Type Department Care Team (Late st Contact Info) Description 06/25/2024 4:00 PM EDT Office Visit Hematology/Oncology [facility] [place] [address] [facility] [place] [phone] Leon Napier MD [address] [facility] [place] [address] 07/20/2024 10:40 AM EDT Office Visit Rheumatology [facility] [address] [place] [phone] Juan Pablo Rebolledo MD [address] [facility] [place] [address] 09/12/2024 11:00 AM EDT Office Visit Urology Matias Small [address] [place] [address] Kayla Rick PA-C [address] [place] [address] 09/21/2024 1:20 PM EDT Office Visit Family Practice [facility] [address] [place] [address] Eliazar Reis MD [address] [place] [address] 12/24/2024 3:30 PM EDT Office Visit Cardiology, [facility] [address] [place] [address] Pollo Meyer MD [address] [place] [address] Health Maintenance Due Date Last Done Comments Adult Wellness Visit 03/11/2022 03/11/2021 Fasting Serum Ferritin Hereditary Hemochromatosis (HFE) Annual,All Ages 06/17/2022 06/17/2021 COVID-19 Vaccine (2 5 season) 2024 12/30/2023, 03/26/2023, 02/15/2022, Additional [...] D LEVEL ONCE IN A LIFETIME-USE SMARTSET# [id number] Completed 06/11/2024, 07/08/2023, 12/07/2022, Additional history exists [...] this encounter Medical Devices Implanted Type Area Employee Development Director Device Identifier Shelf Expiration Date Model / Serial / Lot Sut Steel 6 M654g - [id number] Implanted:Qty : 4 on 09/09/2016 [place] [facility] [place]: Chest JNJ : [employer] 05/11/2021 M654G / / [id number] Atriclip 35mm [id number] - [id number] Implanted:Qty : 1 on 09/09/2016 by John Olver[place] [facility] [place]A: Heart ATRICURE 08/09/2018 [id number] / / [id number] Valve Heart Aortic Epic 23mm - [id number] - [id number] Implanted:Qty : 1 on 09/09/2016 by John Olver[place] [facility] [place] N/A: Aorta ST LESA : CARDIOVASCULAR 02/03/2020 [id number] 00 / [id number] / Allomax Mesh 2 X 4 [id number] - [id number] - [id number] Implanted:Qty : 1 on 12/10/2020 by Jenny Brooks MD [place] [facility] [place]/A: Abdomen CR BARD : DAVOL 03/10/2025 [id number] / [id number] / [id number] Description:PEH documented as of this encounter Advance [...] and were consensually agreed upon. Care Teams Cable Ferryboat Operator Relationship Specialty Start Date End Date Eliazar Reis MD [address] [place] [address] PCP - General Family Medicine 09/02/20 documented as of this encounter
--- OUTSIDE RECORDS SUMMARY | 2024-07-07 09:20 | External Medical Summary | Summary of Care ---
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 Increased risk for Hereditary Hemochromatosis. 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 [facility] documented in this encounter Plan of Treatment Upcoming Encounters Date Type Department Care Team (Late st Contact Info) Description 06/25/2024 4:00 PM EDT Office Visit Hematology/Oncology [facility] [address] [facility] [place] [phone] Leon Napier MD [address] [facility] [place] [address] 07/20/2024 10:40 AM EDT Office Visit Rheumatology [facility] [address] [place] [phone] Juan Pablo Rebolledo MD [facility] [place] [address] 09/12/2024 11:00 AM EDT Office Visit Urology [facility] [address] [place] [address] Kayla Rick PA-C [address] [place] [address] 09/21/2024 1:20 PM EDT Office Visit Family Practice [facility] [address] [place] [address] Eliazar Reis MD [address] [place] [address] 12/24/2024 3:30 PM EDT Office Visit Cardiology, [facility] [address] [place] [address] Pollo Meyer MD [address] [place] [address] Health Maintenance Due Date Last Done Comments [...] 03/25/2016, 01/22/2015, 01/12/2006 Zoster Vaccines Completed 12/28/2019, 06/08/2019, 07/16/2014 Influenza Vaccine (FLU shot) Completed , 01/06/2023, 12/30/2021, Additional history exists VITAMIN D LEVEL ONCE IN A LIFETIME-USE SMARTSET# [id number] Completed 06/11/2024, 07/08/2023, 12/07/2022, Additional history exists [...] this encounter Medical Devices Implanted Type Area Class A Regional Truck Driver Device Identifier Shelf Expiration Date Model / Serial / Lot Sut Ryan 6 M654g - [id number] Implanted:Qty : 4 on 09/09/2016 by John Olvera MD [place] [facility] [place]/A: Chest JNJ : [employer] 05/11/2021 M654G / / [id number] Atriclip 35mm [id number] - [id number] Implanted:Qty : 1 on 09/09/2016 by John Olvera MD [place] [facility] [place]/A: Heart ATRICURE 08/09/2018 [id number] / / [id number] Valve Heart Aortic Epic 23mm - [id number] - [id number] Implanted:Qty : 1 on 09/09/2016 by John Olvera MD [place] [facility] [place] N/A: Aorta ST LESA : CARDIOVASCULAR 02/03/2020 [id number]- 00 / [id number] / Allomax Mesh 2 X 4 [id number] - [id number] - [id number] Implanted:Qty : 1 on 12/10/2020 by Jenny Brooks MD [place] [facility] [place] N/A: Abdomen CR BARD : DAVOL 03/10/2025 [id number] / [id number] / [id number] Description:PEH documented as of this encounter Advance [...] and were consensually agreed upon. Care Teams Road Tester Relationship Specialty Start Date End Date Eliazar Reis MD [address] [place] [address] PCP - General Family Medicine 09/02/20 documented as of this encounter
--- OUTSIDE RECORDS SUMMARY | 2024-07-07 09:20 | External Medical Summary | Summary of Care ---
Author Name Unknown Organization [facility] Address [address] [place] [address] Phone [phone] Care Team Providers Care Barrel Roller Name Role Phone Eliazar Reis MD Primary Care Provider [phone] Encounter Details Date Type Department Care Team (Late st Contact Info) Description 06/22/[address] [place] [address] Charlene Nelson PA-C [address] [place] [address] Allergies Active Allergy Reactions Criticality Noted Date Comments Oxaprozin Psych complications High 06/18/2016 depression Other Reaction(s): MAKES FEEL DEPRESSED Simvastatin Other (Please comment) High 06/18/2016 Critical liver lab results Other Reaction(s): ELEVATED LIVER ENZYMES documented as of this encounter (statuses as of 06/22/2024) Medications Docusate Sodium 100 MG Oral Capsule [...] as of this encounter (statuses as of 06/22/2024) Active Problems Problem Noted Date Diagnosed Date [...] Overview (02/18/2020): 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 Increased risk for Hereditary Hemochromatosis. 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 Charlene Nelson PA-C documented in this encounter Plan of Treatment Upcoming Encounters Date Type Department Care Team (Late st Contact Info) Description 07/10/2024 10:45 AM EDT Imaging Radiology [facility] [facility] [address] [place] [id number] 07/18/2024 10:00 AM EDT Office Visit Hematology/Oncology [facility] [address] [facility] [place] [phone] Leon Napier MD [address] [facility] [place] [address] 07/20/2024 10:40 AM EDT Office Visit Rheumatology [facility] [address] [place] [phone] Juan Pablo Rebolledo MD [address] [place] [address] [place] [address] 09/12/2024 11:00 AM EDT Office Visit Urology [facility] [address] [place] [address] Kayla Rick PA-C [address] [place] [address] 09/21/2024 1:20 PM EDT Office Visit Family Practice [facility] [address] [place] [address] Eliazar Reis MD [address] [place] [address] 12/24/2024 3:30 PM EDT Office Visit Cardiology, [facility] [address] [place] [address] Pollo Meyer MD [address] [place] [address] Health Maintenance Due Date Last Done Comments [...] 03/25/2016, 01/22/2015, 01/12/2006 Zoster Vaccines Completed 12/28/2019, 0608/2019, 07/16/2014 Influenza Vaccine (FLU shot) Completed , 01/06/2023, 12/30/2021, Additional history exists VITAMIN D LEVEL ONCE IN A LIFETIME-USE SMARTSET# [id number] Completed 06/11/2024, 07/08/2023, 12/07/2022, Additional history exists [...] this encounter Medical Devices Implanted Type Area Global Sales Director Device Identifier Shelf Expiration Date Model / Serial / Lot Sut Steel 6 [id number] - [id number] Implanted:Qty : 4 on 09/09/2016 by John Olvera MD at [place] [facility] N/A: Chest JNJ : [employer] 05/11/2021 [id number] / / [id number] Atriclip 35mm [id number] - [id number] Implanted:Qty : 1 on 09/09/2016 by John Olvera MD at OR [facility] N/A: Heart ATRICURE 08/09/2018 [id number] / / [id number] Valve Heart Aortic Epic 23mm - [id number] - [id number] Implanted:Qty : 1 on 09/09/2016 by John Olvera MD at OR [facility] N/A: Aorta [facility] : CARDIOVASCULAR 02/03/2020 [id number] / [id number] / Allomax Mesh 2 X 4 [id number] - [id number] - [id number] Implanted:Qty : 1 on 12/10/2020 by Jenny Brooks MD at OR [facility] N/A: Abdomen CR BARD : DAVOL 03/10/2025 [id number] / [id number] / [id number] Description:[facility] documented as of this encounter Advance [...] and were consensually agreed upon. Care Teams Barrel Roller Relationship Specialty Start Date End Date Eliazar Reis MD [address] [place] [address] PCP - General Family Medicine 09/02/20 documented as of this encounter
--- OUTSIDE RECORDS SUMMARY | 2024-07-07 09:20 | External Medical Summary | Summary of Care ---
Author Name Unknown Organization [facility] Address [address] [place] [address] Phone [phone] Care Team Providers Care Rn Gastroenterology Name Role Phone Eliazar Reis MD Primary Care Provider [phone] Reason for Visit * Reason Onset Date Comments Skilled Nursing Visit - Admission 06/28/2024 Encounter Details Date Type Department Care Team (Latest Contact Info) Description 06/28/2024 8:00 AM EDT Skilled Nursing Visit [address] [place] [address] Sweetie Guevara MD [address] [place] [address] [place] [id number] Aspiration pneumonia of left lower lobe due to vomit (HCC)*; Metabolic encephalopathy; Presence of indwelling Blas catheter; Urinary retention with incomplete bladder emptying; Other pancytopenia (HCC); Pressure injury of left buttock, unstageable (HCC); Diastolic CHF, chronic (HCC); Paroxysmal atrial fibrillation (HCC); Pulmonary hypertension (HCC); S/P AVR (aortic valve replacement); MGUS (monoclonal gammopathy of unknown significance); S/P left atrial appendage ligation Allergies Active Allergy Reactions Criticality Noted Date Comments Oxaprozin Psych complications High 06/18/2016 depression Other Reaction(s): MAKES FEEL DEPRESSED Simvastatin Other (Please comment) High 06/18/2016 Critical liver lab results Other Reaction(s): ELEVATED LIVER ENZYMES documented as of this encounter (statuses as of 06/28/2024) Medications prednisoLONE Acetate 1 % Ophthalmic Suspension [...] as of this encounter (statuses as of 06/28/2024) Active Problems Problem Noted Date Diagnosed Date Presence of indwelling Blas catheter 06/28/2024 Urinary retention with incomplete bladder [...] Overview (02/18/2020): 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 Increased risk for Hereditary Hemochromatosis. Paroxysmal atrial fibrillation 09/10/2016 S/P AVR (aortic valve replacement) 09/09/2016 Dyslipidemia 06/18/2016 Gastroesophageal reflux disease without esophagi tis 06/18/2016 documented as of this encounter (statuses as of 06/28/2024) Resolved Problems Problem Noted Date Diagnosed Date [...] as of this encounter (statuses as of 06/28/2024) Immunizations Name Administration Dates Next Due COVID-19 mRNA, LNP-s, No Pre serve, 2-Dose Series (Moderna) 06/06/2020,05/09/2020 COVID-19, MRNA-LNP, PF, 50 M CG/0.5 mL, 12 YRS AND ABOVE, IM (MODERNA-Spikevax) 12/30/2023,03/26/2023 COVID-19, mRNA, LNP-s, PF, B ooster, 100mcg/0.5mg (Moderna) 05/13/2021 Covid-19, Mrna, Lnp-s, Pf, B ivalent, 30 Mcg, IM, 12 yrs and above (MetaIntell) 11/07/2021 Pneumococcal Conjugate Vacc, 13 Valent (Prevnar) [...] Industry 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 Please see facility medical record for original note. This note is not to be edited or addended in [employer]. Editing or addending needs to occur in the facilities medical record. S: Shannon Salazar had been admitted to [facility] from [facility] for PT and OT and possibly superintendent terminal care. Recently admitted to [facility] on 06/19/24 because of aspiration pneumonia, confusion and was transferred here and admitted on 06/22/2024. Patient of Dr. Reis and more recently resident of [facility] with PMH of MGUS with possible transformation to multiple myeloma currently being worked up, pancytopenia, PAF s/p left atrial appendage ligation and not on anticoagulation, S/P AVR, GERD, diastolic CHF, osteoporosis, and urinary retention requiring Blas for several months who presented to theED after being found by family confused and covered with vomit at [facility]. Patient had been evaluated in the ED on 06/06/24 and tested positive for influenza A at that time. In the ED, CXR showed new left basilar infiltrate suspicious for pneumonia as well as chronic cardiomegaly and pulmonary vascular congestion. Respiratory PCR was again positive for influenza A. UA with 2+protein, 2+ blood, 3+ leuk est, and >50 WBCs. CBC with WBC of 7.43, hemoglobin of 10.6, and platelets of 93. BMP with sodium of 134, BUN was 15 and creatinine 0.86. albumin was 2.7 and total pr otein high at 9.2. Head CT was negative. Patient was admitted and treated for pneumonia and treated with cefepime and oral doxycycline. She received a dose of IV Flagyl in the ED. Her pneumonia was felt to be aspiration as she had vomited prior to developing the pneumonia. It was noted she had a previous barium swallow in April of 2024 that showed mild pharyngeal stage dysphagia but no aspiration or significant pharyngeal retention and known esophageal dysfunction. She did pass a beside speech screening. Sputum cultures with no growth. She was discharged to complete 5 more day of Bactrim. Urine culture grew 3 organisms all in high counts. Her Blas was changed in the ED. Patient noted to have left buttock ulcer present on admission to [facility]. Wound care has been ordered.Patient noted to follow with [facility] wound clinic for chronic venous stasis dermatitis. She follows with Dr. Napier of oncology for MGUS and is being worked up for probable multiple myeloma as an outpatient. She is scheduled for a PET scan 07/10/24 and follow-up with Dr. Napier on 07/18/24. She was given one dose of IV Lasix during her admission for pulmonary vascular congestion. Discussion was held with family and transition to hospice in future discussed and her aspirin, spironolactone, mirtazapine, and pravastatin were discontinued. However, family has not made the decision of starting hospice yet at this time. Of note, patient's eldest daughter the day priorto patient's admission to [facility]. Plan is for patient to remain in [facility] and not return to [facility]. Patient is seen for admission. She denies any cough, shortness of breath, or pain. States her appetite is good. Patient is confused and states the year is 1953 and the month is May. Past Medical History: Patient Active Problem List Diagnosis Dyslipidemia Gastroesophageal [...] ligation Other pancytopenia (HCC) Presence of indwelling Blas catheter Urinary retention with incomplete bladder emptying Current Outpatient Medications Medication Sig Dispense Refill Carboxymethylcellulose Sod PF 0.5 % Ophthalmic Solution (Refresh Plus) Instill 1 Drop into both eyes in the morning and 1 Drop before bedtime. Docusate Sodium 100 MG Oral Capsule (Colace) Take two capsules in the morning and one capsule at bedtime prednisoLONE Acetate 1 % Ophthalmic Suspension (Pred Forte) Instill 1 Drop into both eyes in the morning and 1 Drop at noon and 1 Drop before bedtime. (Patient taking differently: Instill 1 Drop intoboth eyes in the morning.) 45 mL 3 Furosemide 20 MG Oral Tablet (Lasix) TAKE 1 TABLET BY MOUTH DAILY (Patient taking differently: Take1 Tablet by mouth daily as needed for Other (edema).) 90 Tablet 1 Ondansetron 4 MG Oral Tablet Disintegrating (Zofran) Place 1 Tablet on tongue every 8 hours as needed for Nausea. dissolve on tongue. 20 Tablet 1 Metoprolol Succinate ER 25 MG Oral Tablet Extended Release 24 Hour (toPROL XL) TAKE 1/2 TABLET BY MOUTH DAILY 45 Tablet 3 Amiodarone HCl 200 MG Oral Tablet (Cordarone) Take 1 Tablet by mouth in the morning. 100 Tablet 3 Fexofenadine HCl 180 MG Oral Tablet (Helen Allergy) Take 1 Tablet by mouth every afternoon. Saccharomyces boulardii 250 MG Oral Capsule (Florastor) Take 1 Capsule by mouth in the morning. Famotidine 20 MG Oral Tablet (Pepcid) Take 1 Tablet by mouth daily as needed for Heartburn. Magnesium Oxide -Mg Supplement 500 MG Oral Tablet Take 1 Tablet by mouth in the morning. 90 Tablet 1 No current facility-administered medications for this visit. Review of patient's allergies indicates: Allergen Reactions Oxaprozin Psych complications depression Other Reaction(s): MAKES FEEL DEPRESSED Simvastatin Other (Please comment) Critical liver lab results Other Reaction(s): ELEVATED LIVER ENZYMES Social History Tobacco Use Smoking status: Never Passive exposure: Never Smokeless tobacco: Never Substance Use Topics Alcohol use: Not Currently Comment: rarely Vaping/E-Cigarette Use Vaping/E-Cigarette Use Never User Vaping/E-Cigarette Substances Vaping/E-Cigarette Devices Past Surgical History: Procedure Laterality Date ANESTH, CS HYSTERECTOMY ANESTH, LUMBAR SPINE/CORD SURGERY ARTHROPLASTY KNEE TOTAL Left 02/11/2017 Knee replacement CORNEAL TISSUE TRANSPLANT Bilateral CYSTO/URETERO, STONE REMOVE DILATION AND CURETTAGE (D&C) EGD, FLEXIBLE, DIAGNOSTIC N/A 12/10/2020 ESOPHAGOGASTRODUODENOSCOPY (EGD), FLEXIBLE, TRANSORAL, DIAGNOSTIC performed by Jenny Brooks MD at OR [facility] EGD, FLEXIBLE, DIAGNOSTIC 07/18/2020 Reflux esophagitis, duodenitis, hiatal hernia / INPT [facility] INFORMATION back surgery PARAESOPHAGEAL HERNIA REPAIR, LAP W/ MESH N/A 12/10/2020 LAPAROSCOPIC PARAESOPHAGEAL HERNIA REPAIR W/MESH performed by Jenny Brooks MD at OR [facility] PARAESOPHAGEAL HERNIA REPAIR, LAP W/O MESH N/A 12/10/2020 LAPAROSCOPIC PARAESOPHAGEAL HERNIA REPAIR WO/ MESH performed by Jenny Brooks MD at OR [facility] REMOVAL OF KIDNEY STONE, UP TO 2CM REMOVAL OF PELVIC STRUCTURES hysterectomy REPLACEMENT AORTIC VALVE, BYPASS WITH PROSTHETIC VALVE N/A 09/09/2016 REPLACEMENT AORTIC VALVE, BYPASS WITH PROSTHETIC VALVE performed by John Olvera MD at OR [facility] Family History Problem Relation Name Age of Onset Cancer Mother breast Diabetes Mother Cancer Father bladder Renal Hx Father solitary kidney Arthritis Brother knee replacement Cataracts Brother Blindness Aunt (Unspecified) Family Status Relation Status Mo Fa Bro Sonja Alive Sonja Alive Sonja Alive AUNT Results for orders placed or performed in visit on 06/11/24 25-HYDROXY VITAMIN D Result Value Ref Range 25-Hydroxy Vitamin D 38 >19 ng/mL COMPREHENSIVE METABOLIC PANEL Result Value Ref Range BUN 19 6 - 20 mg/dL CREATININE 1.0 0.5 - 1.0 mg/dL EGFR 54 (L) >=60 mL/min SODIUM 129 (L) 135 - 146 mmol/L POTASSIUM 4.3 3.5 - 5.1 mmol/L CHLORIDE 101 98 - 107 mmol/L CO2 15 (L) 22 - 32 mmol/L ANION GAP 13 7 - 15 mmol/L GLUCOSE 100 70 - 120 mg/dL Albumin 2.6 (L) 3.8 - 5.0 g/dL AST 44 (H) 10 - 35 U/L Alkaline Phosphatase 99 35 - 130 U/L Bilirubin, Total 0.5 <=1.2 mg/dL CALCIUM 8.1 (L) 8.4 - 10.2 mg/dL Protein 9.0 (H) 6.0 - 8.3 g/dL ALT 17 10 - 35 U/L [id number], SERUM Result Value Ref Range B2 Microglobulin, Serum 15.70 (H) <=2.51 mg/L IMMUNOGLOBULIN QUANTITATIVE Result Value Ref Range IgG 4,074 (H) 700 - 1,600 mg/dL IgA 14 (L) 70 - 400 mg/dL IgM 8 (L) 40 - 230 mg/dL SERUM FREE LIGHT CHAINS Result Value Ref Range [place] Free Light Chains, Serum 38.78 (H) 3.30 - 19.40 mg/L Lambda Free Light Chains, Serum 3,236.00 (H) 5.71 - 26.30 mg/L [place] Lambda Free Light Chains Ratio 0.01 (L) 0.26 - 1.65 SERUM PROTEIN ELECTROPHORESIS REFLEX PROFILE Result Value Ref Range Normal/Abnormal Abnormal (A) Normal Protein 8.3 6.0 - 8.3 g/dL Albumin 2.41 (L) 3.30 - 4.40 g/dL Alpha-1 Globulin 0.41 (H) 0.10 - 0.30 g/dL Alpha-2 Globulin 1.09 (H) 0.60 - 1.00 g/dL Beta-Globulin 0.79 (L) 0.80 - 1.30 g/dL Gamma-Globulin 3.60 (H) 0.70 - 1.70 g/dL M Allan 3.17 g/dL Electrophoresis Interpretation Abnormal. A paraprotein is present. Appropriate studies including quantitative immunoglobulins, serum free light chains, and serum immunofixation have been ordered in follow up. See serum immunofixation results. Urine immunofixation recommended in follow up if clinically indicated. SERUM IMMUNOFIXATION Result Value Ref Range Normal/Abnormal Abnormal (A) Normal Immunofixation Interpretation A monoclonal IgG lambda gammopathy is present. CBC Result Value Ref Range WBC 3.94 (L) 4.00 - 10.80 K/uL RBC 3.11 3.85 - 5.15 M/uL HGB 10.5 (L) 12.0 - 15.3 g/dL HCT 31.7 (L) 36.0 - 45.2 % MCV 101.9 81.5 - 97.5 fL MCH 33.8 27.0 - 34.0 pg MCHC 33.1 32.0 - 36.0 g/dL RDW 15.2 11.5 - 15.5 % PLT 88 (L) 140 - 400 K/uL MPV 10.5 6.6 - 11.1 fL DIFFERENTIAL, AUTOMATED Result Value Ref Range WBC 3.94 (L) 4.00 - 10.80 K/uL Neutrophils % 86.8 (H) 40.0 - 75.0 % Lymphocytes % 8.6 (L) 18.0 - 42.0 % Monocytes % 4.6 1.0 - 11.0 % Eosinophils % 0.0 0.0 - 6.0 % Basophils % 0.0 0.0 - 2.0 % Absolute Neutrophils 3.42 1.80 - 7.70 K/uL Absolute Lymphocytes 0.34 (L) 1.00 - 4.80 K/ul Absolute Monocytes 0.18 0.00 - 1.10 K/uL Absolute Eosinophils 0.00 0.00 - 0.70 K/uL Absolute Basophils 0.00 0.00 - 0.20 K/uL BILIRUBIN, DIRECT Result Value Ref Range Bilirubin, Direct 0.2 0.0 - 0.3 mg/dL DIFFERENTIAL, TECHNOLOGIST REVIEW Result Value Ref Range nRBCs Review of Systems: obtained from patient, staff, and notes. Constitutional ROS: No change in weight, No fevers, sweats, or chills, and +generalized weakness Eye ROS: No recent significant change in vision and No eye pain, redness, discharge Ear ROS: No ear pain, No drainage, No tinnitus or vertigo, and No recent change in hearing Nose ROS: No history of frequent colds or sinusitis, No nasal stuffiness, +allergic rhinitis, and No significant epistaxis Mouth/Throat ROS: No bleeding gums, No thrush, or No sore throat Pulmonary ROS: No cough, sputum, or hemoptysis, No wheezing, No shortness of breath, and +recent LLL pneumonia Cardiovascular ROS: No chest pain, No shortness of breath, No orthopnea, No paroxysmal nocturnal dyspnea, No palpitations, and No syncope Gastrointestinal ROS: No abdominal pain, No change in bowel habits, No significant change in appetite, No hematemesis, No blood in stools or black tarry stools, No abdominal bloating or early satiety, No dysphagia, and +constipation on bowel regimen Genito-Urinary Female ROS: +chronic blas Musculoskeletal/Extremities ROS: +OA Hematologic/Lymphatic ROS: +as per HPI Skin/Integumentary ROS: +left buttocks unstageable injury Neurologic ROS: No headaches, No seizures, and +confusion Endocrine ROS: No heat intolerance, No cold intolerance, No thyroid trouble, No excessive thirst orurination, and No history of diabetes Psychiatric ROS: +h/o depression. Mirtazapine was discontinued ADL skills: dependent Ambulates with walker OBJECTIVE: PHYSICAL EXAM: I reviewed the most recent facilities vitals. Refer to vital signs flowsheet in half-way chart.General: alert, no distress, and thin, frail elderly female seated in a wheelchair Head: Normocephalic, No masses, lesions, tenderness or abnormalities Eye Exam: PERRLA, extraocular movements intact, conjunctiva are pink and non- injected, sclera clear Ears: External ears normal Nose: no mucosal erythema, no mucosal edema, no purulent discharge Oropharynx: no exudate, no erythema, lips, buccal mucosa, and tongue normal, and mucous membranes are moist Neck: supple, no adenopathy, no bruits Heart: no gallops, irregularly irregular, and +systolic murmur Lungs: chest symmetric with normal AP diameter, no chest deformities noted, no chest wall tenderness, lungs clear to auscultation Abdomen: abdomen soft, non-tender, normal bowel sounds, and no masses or organomegaly Extremities: no edema, no clubbing, no cyanosis Neuro Exam: no focal motor/sensory deficits, alert and oriented to self and that she is somewhere "close to [facility]" ASSESSMENT: Aspiration pneumonia of left lower lobe due to vomit (HCC) (Primary)--appears improved. Completed Bactrim in facility. Metabolic encephalopathy--patient is oriented to self today. Unclear baseline and suspect underlying dementia. Presence of indwelling Blas catheter--has failed several void trials. Continue monthly changes. Urinary retention with incomplete bladder emptying--continue blas. Other pancytopenia (HCC)--currently being worked up for multiple myeloma by her oncologist. Pressure injury of left buttock, unstageable (HCC)--continue pressure off loading and wound care. Diastolic CHF, chronic (HCC)--continue Lasix as needed. Not short of breath and without edema today. Paroxysmal atrial fibrillation (HCC)--not on anticoagulation. S/p left atrial appendage ligation. Rate controlled with amiodarone 200 mg daily and metoprolol succinate 12.5 mg daily. Pulmonary hypertension (HCC)--stable S/P AVR (aortic valve replacement)--stable MGUS (monoclonal gammopathy of unknown significance)--follows with oncology. Being worked up for multiple myeloma. S/P left atrial appendage ligation PLAN: 1. Continue present medication(s): Follow-up for PET scan 07/10/24 and with oncology 07/18/24 as scheduled for work up of possible multiple myeloma 2. Admission orders, medications, labs, hospital records and care plan reviewed. 3. Yield Analyst consult, Physical Therapy, Occupational Therapy, and Speech Therapy ordered. 4. Care plan reviewed. 5. Advance Directives were discussed: The patient is a DNR 6. Detention Home Treatment Given: Antibiotic Oral completed Bactrim Electronically signed by: Sweetie Guevara MD I spent a total of 40-54 minutes (exact time 52 mins) on the date of service in preparation, delivery, and documentation of the care provided to Shannon Salazar excluding any time spent in the performance of separately billed services or time spent by another provider/QHP. documented in this encounter Plan of Treatment Upcoming Encounters Date Type Department Care Team (Late st Contact Info) Description 07/10/2024 10:45 AM EDT Imaging Radiology [facility] [address] [facility] [address] [place] [id number] 07/18/2024 10:00 AM EDT Office Visit Hematology/Oncology [facility] [address] [facility] [place] [id number] Leon Napier MD [address] [facility] [place] [address] 07/20/2024 10:40 AM EDT Office Visit Rheumatology [facility] [address] [place] [phone] Juan Pablo Rebolledo MD [facility] [place] [address] 09/12/2024 11:00 AM EDT Office Visit Urology Matias Small [address] [place] [address] Kayla Rick PA-C [address] [place] [address] 09/21/2024 1:20 PM EDT Office Visit Family Practice [facility] [address] [place] [address] Eliazar Reis MD [address] [place] [address] 12/24/2024 3:30 PM EDT Office Visit Cardiology, [facility] [address] [place] [address] Pollo Meyer MD [address] [place] [address] Health Maintenance Due Date Last Done Comments [...] D LEVEL ONCE IN A LIFETIME-USE SMARTSET# [id number] Completed 06/11/2024, 07/08/2023, 12/07/2022, Additional history exists [...] encounter Medical Devices Implanted Type Area Global Risk Management Director Device Identifier Shelf Expiration Date Model / Serial / Lot Sut Ryan 6 [id number] - [id number] Implanted:Qty : 4 on 09/09/2016 by John Olvera MD at OR [facility] N/A: Chest JNJ : [employer] 05/11/2021 [id number] / / [id number] Atriclip 35mm [id number] - [id number] Implanted:Qty : 1 on 09/09/2016 by John Olvera MD at OR [facility] N/A: Heart ATRICURE 08/09/2018 [id number] / / [id number] Valve Heart Aortic Epic 23mm - [id number] - [id number] Implanted:Qty : 1 on 09/09/2016 by John Olvera MD at OR [facility] N/A: Aorta [facility] [place] : CARDIOVASCULAR 02/03/2020 [id number] / [id number] / Allomax Mesh 2 X 4 [id number] - [id number] - [id number] Implanted:Qty : 1 on 12/10/2020 by Jenny Brooks MD at OR [facility] N/A: Abdomen CR BARD : DAVOL 03/10/2025 [id number] / [id number] / [id number] Description:PEH documented as of this encounter Visit Diagnoses Diagnosis Aspiration pneumonia of left lower lobe due to vomit (HCC)- Primary Metabolic encephalopathy Presence of indwelling Blas catheter Urinary retention with incomplete bladder emptying Incomplete bladder emptying Other pancytopenia (HCC) Other pancytopenia Pressure injury of left buttock, unstageable (HCC) Diastolic CHF, chronic (HCC) Chronic diastolic heart failure Paroxysmal atrial fibrillation (HCC) Atrial fibrillation Pulmonary hypertension (HCC) Other chronic pulmonary heart diseases S/P AVR (aortic valve replacement) Heart valve replaced by other means MGUS (monoclonal gammopathy of unknown significance) Monoclonal paraproteinemia S/P left atrial appendage ligation documented in this encounter Advance Directives * [...] and were consensually agreed upon. Care Teams Rn Gastroenterology Relationship Specialty Start Date End Date Eliazar Reis MD [address] [facility] [place] [address] PCP - General Family Medicine 09/02/20 documented as of this encounter
--- OUTSIDE RECORDS SUMMARY | 2024-07-07 09:20 | External Medical Summary | Summary of Care ---
Author Name Unknown Organization [facility] Address [address] [place] [address] Phone [phone] Care Team Providers Care Manager Of Construction Name Role Phone Eliazar Reis MD Primary Care Provider [phone] Reason for Visit * Reason Onset Date Comments Assisted Visit 06/25/2024 Encounter Details Date Type Department Care Team (Late st Contact Info) Description 06/25/2024 8:30 AM EDT Assisted Visit [address] [place] [address] Charlene Nelson PA-C [address] [place] [id number] Aspiration pneumonia of left lower lobe due to vomit (HCC)*; Generalized weakness; Presence of indwelling Pardo catheter; History of influenza; History of UTI; Diastolic CHF, chronic (HCC); MGUS (monoclonal gammopathy of unknown significance); Paroxysmal atrial fibrillation (HCC) Allergies Active Allergy Reactions Criticality Noted Date Comments Oxaprozin Psych complications High 06/18/2016 depression Other Reaction(s): MAKES FEEL DEPRESSED Simvastatin Other (Please comment) High 06/18/2016 Critical liver lab results Other Reaction(s): ELEVATED LIVER ENZYMES documented as of this encounter (statuses as of 06/26/2024) Medications prednisoLONE Acetate 1 % Ophthalmic Suspension [...] morning. 90 Tablet 1 06/16/19 25 Active Docusate Sodium 100 MG Oral Capsule Take by mouth 2 times a day. 200 mg in the AM and 100 mg at night 025 Discontin ued(Medic ation List Clean Up) Aspirin 81 MG Oral Tablet ChewableIndication s:Transient memory loss Take 1 Tablet (81 mg) by mouth in the morning. with food.. 90 Tablet 3 03/19/20 22 025 Discontin ued(Medic ation List Clean Up) Systane 0.4-0.3 % Ophthalmic Solution (Artificial Tears) Instill into both eyes 4 times a day as needed for Dry eyes. 025 Discontin ued(Medic ation List Clean Up) Polyethylene Glycol 3350 17 GM/SCOOP Oral Powder (MiraLax) Take 17 g by mouth as needed for Constipation. Dissolve one heaping tablespoon in 8 ounces of water or juice. 850 g 3 03/11/20 23 025 Discontin ued(Medic ation List Clean Up) Potassium Chloride Jeannine ER 10 MEQ Oral Tablet Extended Release (Klor-Con M10)Indications:Hy pokalemia TAKE 1 TABLET BY MOUTH IN THE MORNING AND 1 TABLET AT NOON AND 1 TABLET AT BEDTIME 270 Tablet 2 01/11/20 24 025 Discontin ued(Medic ation List Clean Up) Sulfamethoxazole-T rimethoprim 800-160 MG Oral Tablet (Bactrim DS) Take 1 Tablet by mouth in the morning and 1 Tablet before bedtime. Do all this for 3 days. Until gone. 6 Tablet 03/21/20 24 025 Discontin ued(Medic ation List Clean Up) Pravastatin Sodium 80 MG Oral TabletIndications: Dyslipidemia, goal LDL below 130 Take 1 Tablet by mouth every evening. 90 Tablet 3 04/26/19 25 025 Discontin ued(Medic ation List Clean Up) Spironolactone 25 MG Oral Tablet (Aldactone) TAKE ONE-HALF TABLET BY MOUTH IN THE MORNING 45 Tablet 1 05/23/19 25 025 Discontin ued(Medic ation List Clean Up) Metamucil Fiber 2 GM Oral Tablet Chewable Take 1 Each by mouth in the morning. 025 Discontin ued(Medic ation List Clean Up) Vitamin C 500 MG Oral Tablet Chewable Take 1 Tablet by mouth in the morning. 025 Discontin ued(Medic ation List Clean Up) Calcium 500 MG Oral Tablet Take 1 Tablet by mouth in the morning. 90 Tablet 1 06/16/19 25 025 Discontin ued(Medic ation List Clean Up) Mirtazapine 15 MG Oral Tablet (Remeron) Take 1 Tablet by mouth at bedtime. 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 Increased risk for Hereditary Hemochromatosis. 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 Not on file Not on file Not on file documented as of this encounter Last Filed Vital Signs Vital Sign Reading Time Taken Comments Blood Pressure 108/82 06/25/2024 3:49 PM EDT Pulse 68 06/25/2024 3:49 PM EDT Temperature 36.8 C (98.2 F) 06/25/2024 3:49 PM ED T Respiratory Rate 18 06/25/2024 3:49 PM EDT Oxygen Saturation 97% 06/25/2024 3:49 PM EDT room air Inhaled Oxygen Concentration [...] Assessment Author Yes 12/10/2020 8:27 PM EDT Casye Schuler RN * Do you have difficulty [...] Assessment Author Yes 12/10/2020 8:27 PM EDT Casye Schuler RN documented as of this encounter [...] Description 07/10/2024 10:45 AM EDT Imaging Radiology [facility] [address] [address] 07/18/2024 10:00 AM EDT Office Visit Hematology/Oncology [facility] [place] [address] [facility] [place] [id number] Leon Napier MD [address] [facility] [place] [address] 07/20/2024 10:40 AM EDT Office Visit Rheumatology [facility] [address] [phone] Juan Pablo Rebolledo MD [facility] [place] [address] 09/12/2024 11:00 AM EDT Office Visit Urology [facility] [address] [address] Kayla Rick PA-C [address] [address] 09/21/2024 1:20 PM EDT Office Visit Family Practice [facility] [address] [address] Eliaazr Reis MD [address] [address] 12/24/2024 3:30 PM EDT Office Visit Cardiology, [facility] [address] [address] Pollo Meyer MD [address] [address] Health Maintenance Due Date Last Done Comments [...] D LEVEL ONCE IN A LIFETIME-USE SMARTSET# [id number] Completed 06/11/2024, 07/08/2023, 12/07/2022, Additional history exists [...] this encounter Medical Devices Implanted Type Area Cop Examiner Device Identifier Shelf Expiration Date Model / Serial / Lot Sut Steel 6 M654g - [id number] Implanted:Qty : 4 on 09/09/2016 by [place]ver[place] [facility] [place]: Chest JNJ : [employer] 05/11/2021 [id number] / / [id number] Atriclip 35mm [id number] - [id number] Implanted:Qty : 1 on 09/09/2016 by John Olver[place] [facility] [place]A: Heart ATRICURE 08/09/2018 [id number] / / [id number] Valve Heart Aortic Epic 23mm - [id number] - [id number] Implanted:Qty : 1 on 09/09/2016 by John Olver[place] [facility] [place] N/A: Aorta [employer] LESA : CARDIOVASCULAR 02/03/2020 [id number] 00 / [id number] / Allomax Mesh 2 X 4 [id number] - [id number] - [id number] Implanted:Qty : 1 on 12/10/2020 by Jenny Brooks MD at [place] [facility] [place]/A: Abdomen CR BARD : DAVOL 03/10/2025 [id number] / [id number] / [id number] Description:PEH documented as of this encounter Visit Diagnoses Diagnosis Aspiration pneumonia of left lower lobe due to vomit (HCC)- Primary Generalized weakness Other malaise and fatigue Presence of indwelling Pardo catheter History of influenza Personal history of other infectious and parasitic disease History of UTI Personal history of urinary (tract) infection Diastolic CHF, chronic (HCC) Chronic diastolic heart failure MGUS (monoclonal gammopathy of unknown significance) Monoclonal paraproteinemia Paroxysmal atrial fibrillation (HCC) Atrial fibrillation documented in this encounter Advance Directives * [...] patient have Health Care Power of Attor ccei? No * Full Code Date Activated Date Inactivated Comments 09/09/2016 11:44 AM 09/13/2016 3:34 PM This order re flects the patients wishes and were consensually agreed upon. Care Teams Manager Of Construction Relationship Specialty Start Date End Date Eliazar Reis MD [address] [address] PCP - General Family Medicine 09/02/20 documented as of this encounter
--- OUTSIDE RECORDS SUMMARY | 2024-07-07 09:20 | External Medical Summary | Summary of Care ---
Author Name Unknown Organization [facility] Address [address] [place] [address] Phone [phone] Care Team Providers Care Nutrition Services Manager Name Role Phone Eliazar Reis MD Primary Care Provider [phone] Reason for Referral * Precert (Within 10 days (routine)) - Authorized Specialty Diagnoses / Procedures Referred By Contac t Referred To Contact Radiology Diagnoses MGUS (monoclonal gammopathy of unknown significance) Multiple myeloma, remission status unspecified (HCC) Procedures PET WHOLE BODY FDG Leon Napier MD [address] [place] [address] Phone: tel: fax: Referral ID Status Reason Start Date Expiration Date V isits Requested Visits Authorized [id number] Authorized 06/27/2024 [id number] Encounter Details Date Type Department Care Team (Late st Contact Info) Description 06/20/2024 Orders Only Hematology/[place] [address] [phone] Leon Napier MD [address] [place] [address] MGUS (monoclonal gammopathy of unknown significance)*; Multiple myeloma, remission status unspecified (HCC) Allergies [...] Overview (02/18/2020): 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 Increased risk for Hereditary Hemochromatosis. 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 Answer Date of Assessment Author No 12/10/2020 8:27 PM EDT Casey Schuler, RN * Are you blind or do [...] Casey Beltrán RN documented in this encounter Plan of Treatment Upcoming Encounters Date Type Department Care Team (Late st Contact Info) Description 06/25/2024 4:00 PM EDT Office Visit Hematology/Oncology [facility] [address] [facility] [place] [phone] Leon Napier MD [address] [facility] [place] [address] 07/20/2024 10:40 AM EDT Office Visit Rheumatology [facility] [address] [phone] Juan Pablo Rebolledo MD [address] [facility] [place] [address] 09/12/2024 11:00 AM EDT Office Visit Urology [facility] Small [address] [address] Kayla Rick PA-C [address] [address] 09/21/2024 1:20 PM EDT Office Visit Family Practice [facility] [address] [facility] [place] [address] Eliazar Reis MD [address] [place] [address] 12/24/2024 3:30 PM EDT Office Visit Cardiology, [facility] [address] [facility] [place] [address] Pollo Meyer MD 132 [facility] [place] [address] Scheduled Orders Name Type Priority Associated Diagnoses Orde r Schedule PET WHOLE BODY FDG Medical Imaging Routine MGUS (monoclonal gammopathy of unknown significance) Multiple myeloma, remission status unspecified (HCC) Expected: 06/27/2024, Expires: 07/21/2025 Health Maintenance Due Date Last Done Comments [...] D LEVEL ONCE IN A LIFETIME-USE SMARTSET# [id number] Completed 06/11/2024, 07/08/2023, 12/07/2022, Additional history exists [...] this encounter Medical Devices Implanted Type Area [employer] Device Identifier Shelf Expiration Date Model / Serial / Lot Sut Steel 6 M654g - [id number] Implanted:Qty : 4 on 09/09/2016 by John Olvera MD [place] [facility] [place]A: Chest JNJ : [employer] 05/11/2021 [id number] / / [id number] Atriclip 35mm [id number] - [id number] Implanted:Qty : 1 on 09/09/2016 by John Olvera MD [place] [facility] [place]/A: Heart ATRICURE 08/09/2018 [id number] / / [id number] Valve Heart Aortic Epic 23mm - [id number] - [id number] Implanted:Qty : 1 on 09/09/2016 by John Olvera MD [place] [facility] [place] N/A: Aorta [employer] LESA : CARDIOVASCULAR 02/03/2020 [id number]- 00 / [id number] / Allomax Mesh 2 X 4 [id number] - [id number] - [id number] Implanted:Qty : 1 on 12/10/2020 by Jenny Brooks MD [place] [facility] [place]/A: Abdomen CR BARD : DAVOL 03/10/2025 [id number] / [id number] / [id number] Description:PEH documented as of this encounter Visit Diagnoses Diagnosis MGUS (monoclonal gammopathy of unknown significance)- Primary Monoclonal paraproteinemia Multiple myeloma, remission status unspecified (HCC) documented [...] and were consensually agreed upon. Care Teams Nutrition Services Manager Relationship Specialty Start Date End Date Eliazar Reis MD [address] [place] [address] PCP - General Family Medicine 09/02/20 documented as of this encounter
[2024-07-07] MEDS: prednisoLONE acetate 1% OP SUSP 5 ML BTL OPB SCH (10:01)
[2024-07-07] MEDS: PROMETHAZINE 6.25 MG/50.25 ML BAG IV PRN (11:31)
[2024-07-07] MEDS: GLYCOPYRROLATE 0.2 MG/ML VIAL IV PRN (11:35)
--- NOTE | 2024-07-07 12:11 | Electrocardiogram Report ---
Test Reason : Blood Pressure : */* mmHG Vent. Rate : 105 BPM Atrial Rate : * BPM P-R Int : * ms QRS Dur : 156 ms QT Int : 356 ms P-R-T Axes : * -61 88 degrees QTcB Int : 470 ms Atrial fibrillation with rapid ventricular response Right bundle branch block Left anterior fascicular block Bifascicular block Left ventricular hypertrophy with repolarization abnormality ( R in aVL , Romhilt-Brian ) Abnormal ECG When compared with ECG of 21-Jun-2024 05:32, Vent. rate has increased by 43 bpm Nonspecific T wave abnormality no longer evident in Inferior leads T wave inversion now evident in Anterior leads Confirmed by Domonique Santamaria ([id number]) on 07/07/2024 12:11:12 PM Referred By: REFERRED SELF Confirmed By: Domonique Santamaria
--- NOTE | 2024-07-07 15:11 | Hospitalist Progress Note ---
Date of Service July 07, 2024 Assessment & Plan (1) Comfort measures only status: Plan: Has been on comfort care since admission Reassured the patient and the daughter about the comfort care and symptomatic management thereafter Patient has been complaining of nausea and vomiting and increased respiratory secretions Appropriate medications have been administered for comfort Below is the continued medical conditions and the management she received for those:Noted by the Admitting team Sepsis Acute respiratory failure with hypoxia Bilateral pneumonia likely due to aspiration Complicated urinary tract infection Dehydration Hypertensive urgency Hypokalemia Lactic acidosis Mild troponin elevation likely demand ischemia Esophagitis Acute metabolic encephalopathy secondary to above Other chronic conditions: paroxysmal atrial fibrillation s/p left atrial appendage ligation Chronic diastolic heart failure Hypertension Hyperlipidemia Pulmonary hypertension valvular heart disease s/p aortic valve replacement Recurrent urinary tract infections Chronic indwelling Pardo catheter MGUS Paraesophageal hernia S/P repair Iron deficiency anemia (2) Complicated urinary tract infection: (3) Aspiration pneumonia: (4) Sepsis: Plan: DVT Px: Not indicated CODE STATUS DNI DNR Disposition Admit to [facility] Admission and Anticipated Discharge Date Admission Date: July 06, 2024 Subjective 07/07/2024 The patient was seen and examined in medical floor in presence of the daughter She remains on comfort care Having profound respiratory secretions with ongoing nausea and vomiting She was reassured and the symptomatic medications will be provided Review of Systems Review of Systems: Unobtainable due to cognitive status Physical Exam Physical Exam: Lying in bed with acute distress due to shortness of breath Constitutional: + ill appearing and + thin Eyes: PERRL, conjunctivae normal, anicteric sclerae ENMT: external ear and nose normal, oropharynx normal Neck: trachea midline, no thyromegaly Respiratory: + respiratory distress Auscultation: + diminished lung sounds, + crackles and + wheezes Cardiovascular: Rate/Rhythm: regular rate and regular rhythm; not tachycardic Heart Sounds: normal S1, normal S2 and + murmur Extremities: no edema Gastrointestinal (Abdomen): Inspection/Auscultation: normal bowel sounds; abdomen not distended Percussion/Palpation: abdomen soft; abdomen nontender Musculoskeletal: No acute arthritis involving any of the joint Neurologic: awake, + confused and + obtunded Lymphatic: no cervical or axillary lymphadenopathy Results & Data Results & Data Vital Signs (Past 12 Hours) Vital Signs O2 Del Method O2 Flow Rate 07/07/24 08:30 Room Air 3 Laboratory Results Short CBC 07/06/24 Range/Units 17:05 WBC 12.07 H (4.8-10.8) K/ul Hgb 11.0 L (12.0-16.0) g/dl Hct 32.3 L (37.0-47.0) % Plt Count 138 (130-400) K/uL BMP 07/06/24 17:05 Sodium 135 L Potassium 3.4 L Chloride 102 Carbon Dioxide 24 BUN 14 Creatinine 0.58 L Glucose 150 H Calcium 8.0 L Liver Function 07/06/24 Range/Units 17:05 Total Bilirubin 0.7 (0.2-1.0) mg/dl AST 14 (13-39) U/L ALT 11 (7-52) U/L Alkaline Phosphatase 83 (34-104) U/L Albumin 2.7 L (3.4-5.0) gm/dl Urine 07/06/24 07/06/24 Range/Units 17:12 18:46 Urine Color Yellow Yellow Urine Appearance Turbid A Cloudy A (Clear) Urine pH >= 9.0 H 8.5 H (4.5-7.5) Ur Specific [place] 1.014 1.013 (1.000-1.030) Urine Protein 2+ H 2+ H (Negative) Urine Glucose (UA) Negative Negative (Negative) Medications Administered Current Inpatient Medications Acetaminophen (Acetaminophen 325 Mg Tab) 650 mg PO Q4H PRN PRN Reason: pain/fever Stop: 08/05/24 23:11 Al Hydrox/Mg Hydrox/Simethicone (Aluminum/Magnesium Susp 30 Ml Udc) 30 ml PO Q6H PRN PRN Reason: Dyspepsia Stop: 08/05/24 23:11 Artificial Tears (Artificial Tears) 1 drops OP BID PRN PRN Reason: Dry Eyes Stop: 08/05/24 23:51 Atropine Sulfate (Atropine Sulfate 1% Op Soln 5 Ml Btl) 4 drops SL Q1H PRN PRN Reason: Secretions or pulm congestion Stop: 08/05/24 23:11 Docusate Sodium (Docusate Sodium 100 Mg Cap) 100 mg PO PM STEPHANIE Stop: 08/05/24 23:11 Last Admin: 07/07/24 00:42 Dose: Not Given Docusate Sodium (Docusate Sodium 100 Mg Cap) 200 mg PO QAM STEPHANIE Stop: 08/06/24 08:59 Last Admin: 07/07/24 09:45 Dose: Not Given Famotidine (Famotidine 20 Mg Tab) 20 mg PO DAILY PRN PRN Reason: Indigestion Stop: 08/05/24 23:11 Fexofenadine HCl (Fexofenadine Hcl 180 Mg Tab) 180 mg PO HS STEPHANIE Stop: 08/06/24 20:59 Glycopyrrolate (Glycopyrrolate 0.2 Mg/Ml Vial) 0.4 mg IV Q4H PRN PRN Reason: Rattling Secretions or Pulm Co Stop: 08/05/24 23:11 Last Admin: 07/07/24 11:35 Dose: 0.4 mg Haloperidol (Haloperidol Oral Soln 2 Mg/Ml) 0.5 mg PO Q4H PRN PRN Reason: Anxiety/Agitation Stop: 08/05/24 23:11 Promethazine HCl (Phenergan) 6.25 mg in 50.25 mls @ 201 mls/hr IV Q6H PRN PRN Reason: Nausea And Vomiting Stop: 08/06/24 09:57 Last Infusion: 07/07/24 11:50 Dose: Infused Lorazepam (Lorazepam 2 Mg/1 Ml Vial) 0.5 mg IV Q4H PRN PRN Reason: Anxiety/Agitation Stop: 08/05/24 23:11 Magnesium Hydroxide (Magnesium Hydroxide Susp 30 Ml Udc) 30 ml PO Q6H PRN PRN Reason: Constipation Stop: 08/05/24 23:11 Melatonin (Melatonin 3 Mg Tab) 3 mg PO HS PRN PRN Reason: Insomnia Stop: 08/05/24 23:11 Morphine Sulfate (Morphine Sulfate 10 Mg/0.5 Ml Udp) 5 mg PO Q3H PRN PRN Reason: Pain or Respiratory Distress Stop: 07/20/24 23:11 Morphine Sulfate (Morphine Sulfate 2 Mg/Ml Carp) 2 mg IV Q4H PRN PRN Reason: Pain or Respiratory Distress Stop: 07/20/24 23:11 Ondansetron HCl (Ondansetron 4 Mg Od Tab) 4 mg PO Q6H PRN PRN Reason: Nausea/Vomiting Stop: 08/05/24 23:11 Ondansetron HCl (Ondansetron Inj 2 Mg/Ml 2 Ml Vial) 4 mg IV Q4H PRN PRN Reason: Nausea &/or Vomiting Stop: 08/05/24 23:11 Last Admin: 07/07/24 14:53 Dose: 4 mg Prednisolone Acetate (Prednisolone Acetate 1% Op Susp 5 Ml Btl) 1 drops OPB DAILY [facility] Stop: 08/06/24 08:59 Last Admin: 07/07/24 10:01 Dose: Not Given
[2024-07-07] MEDS: FEXOFENADINE HCL 180 MG TAB PO SCH (20:37)
[2024-07-08] MEDS: METOCLOPRAMIDE HCL INJ 5 MG/ML 2 ML VIAL IV SCH (11:34)
--- NOTE | 2024-07-08 11:48 | Hospitalist Progress Note ---
Date of Service July 08, 2024 Assessment & Plan (1) Comfort measures only status: Plan: Has been on comfort care since admission Reassured the patient and the daughter about the comfort care and symptomatic management thereafter Patient has been complaining of nausea and vomiting and increased respiratory secretions Appropriate medications have been administered for comfort Has been getting nausea with vomiting with any substance through mouth Will try Reglan IV AC and there is discussed with the daughter Otherwise remains comfortable and will continue with the current management of comfort care Below is the continued medical conditions and the management she received for those:Noted by the Admitting team Sepsis Acute respiratory failure with hypoxia Bilateral pneumonia likely due to aspiration Complicated urinary tract infection Dehydration Hypertensive urgency Hypokalemia Lactic acidosis Mild troponin elevation likely demand ischemia Esophagitis Acute metabolic encephalopathy secondary to above Other chronic conditions: paroxysmal atrial fibrillation s/p left atrial appendage ligation Chronic diastolic heart failure Hypertension Hyperlipidemia Pulmonary hypertension valvular heart disease s/p aortic valve replacement Recurrent urinary tract infections Chronic indwelling Pardo catheter MGUS Paraesophageal hernia S/P repair Iron deficiency anemia (2) Complicated urinary tract infection: (3) Aspiration pneumonia: (4) Sepsis: Plan: DVT Px: Not indicated CODE STATUS DNI DNR [facility]position Ad[facility] Admission and Anticipated Discharge Date Admission Date: July 06, 2024 Subjective 07/07/2024 The patient was seen and examined in medical floor in presence of the daughter She remains on comfort care Having profound respiratory secretions with ongoing nausea and vomiting She was reassured and the symptomatic medications will be provided 07/08/2024 The patient was seen and examined in medical floor in presence of the daughter She has been complaining of nausea and vomiting with any thing through the mouth She kept her pills though She remains otherwise comfortable and free of any pain Physical Exam Physical Exam: Lying in bed with acute distress due to shortness of breath Constitutional: + ill appearing and + thin Eyes: PERRL, conjunctivae normal, anicteric sclerae ENMT: external ear and nose normal, oropharynx normal Neck: trachea midline, no thyromegaly Respiratory: + respiratory distress Auscultation: + diminished lung sounds, + crackles and + wheezes Cardiovascular: Rate/Rhythm: regular rate and regular rhythm; not tachycardic Heart Sounds: normal S1, normal S2 and + murmur Extremities: no edema Gastrointestinal (Abdomen): Inspection/Auscultation: normal bowel sounds; abdomen not distended Percussion/Palpation: abdomen soft; abdomen nontender Neurologic: awake, + confused and + obtunded Lymphatic: no cervical or axillary lymphadenopathy Results & Data Results & Data Vital Signs (Past 12 Hours) Vital Signs O2 Del Method O2 Flow Rate 07/08/24 07:57 Nasal Cannula 3 Medications Administered Current Inpatient Medications Acetaminophen (Acetaminophen 325 Mg Tab) 650 mg PO Q4H PRN PRN Reason: pain/fever Stop: 08/05/24 23:11 Al Hydrox/Mg Hydrox/Simethicone (Aluminum/Magnesium Susp 30 Ml Udc) 30 ml PO Q6H PRN PRN Reason: Dyspepsia Stop: 08/05/24 23:11 Artificial Tears (Artificial Tears) 1 drops OP BID PRN PRN Reason: Dry Eyes Stop: 08/05/24 23:51 Atropine Sulfate (Atropine Sulfate 1% Op Soln 5 Ml Btl) 4 drops SL Q1H PRN PRN Reason: Secretions or pulm congestion Stop: 08/05/24 23:11 Docusate Sodium (Docusate Sodium 100 Mg Cap) 100 mg PO PM STEPHANIE Stop: 08/05/24 23:11 Last Admin: 07/07/24 20:37 Dose: 100 mg Docusate Sodium (Docusate Sodium 100 Mg Cap) 200 mg PO QAM STEPHANIE Stop: 08/06/24 08:59 Last Admin: 07/08/24 07:22 Dose: Not Given Famotidine (Famotidine 20 Mg Tab) 20 mg PO DAILY PRN PRN Reason: Indigestion Stop: 08/05/24 23:11 Fexofenadine HCl (Fexofenadine Hcl 180 Mg Tab) 180 mg PO HS STEPHANIE Stop: 08/06/24 20:59 Last Admin: 07/07/24 20:37 Dose: 180 mg Glycopyrrolate (Glycopyrrolate 0.2 Mg/Ml Vial) 0.4 mg IV Q4H PRN PRN Reason: Rattling Secretions or Pulm Co Stop: 08/05/24 23:11 Last Admin: 07/07/24 11:35 Dose: 0.4 mg Haloperidol (Haloperidol Oral Soln 2 Mg/Ml) 0.5 mg PO Q4H PRN PRN Reason: Anxiety/Agitation Stop: 08/05/24 23:11 Promethazine HCl (Phenergan) 6.25 mg in 50.25 mls @ 201 mls/hr IV Q6H PRN PRN Reason: Nausea And Vomiting Stop: 08/06/24 09:57 Last Infusion: 07/08/24 06:36 Dose: Infused Lorazepam (Lorazepam 2 Mg/1 Ml Vial) 0.5 mg IV Q4H PRN PRN Reason: Anxiety/Agitation Stop: 08/05/24 23:11 Magnesium Hydroxide (Magnesium Hydroxide Susp 30 Ml Udc) 30 ml PO Q6H PRN PRN Reason: Constipation Stop: 08/05/24 23:11 Melatonin (Melatonin 3 Mg Tab) 3 mg PO HS PRN PRN Reason: Insomnia Stop: 08/05/24 23:11 Metoclopramide HCl (Metoclopramide Hcl Inj 5 Mg/Ml 2 Ml Vial) 5 mg IV AC [facility] Stop: 08/07/24 11:29 Last Admin: 07/08/24 11:34 Dose: 5 mg Morphine Sulfate (Morphine Sulfate 10 Mg/0.5 Ml Udp) 5 mg PO Q3H PRN PRN Reason: Pain or Respiratory Distress Stop: 07/20/24 23:11 Morphine Sulfate (Morphine Sulfate 2 Mg/Ml Carp) 2 mg IV Q4H PRN PRN Reason: Pain or Respiratory Distress Stop: 07/20/24 23:11 Ondansetron HCl (Ondansetron 4 Mg Od Tab) 4 mg PO Q6H PRN PRN Reason: Nausea/Vomiting Stop: 08/05/24 23:11 Ondansetron HCl (Ondansetron Inj 2 Mg/Ml 2 Ml Vial) 4 mg IV Q4H PRN PRN Reason: Nausea &/or Vomiting Stop: 08/05/24 23:11 Last Admin: 07/08/24 02:44 Dose: 4 mg Prednisolone Acetate (Prednisolone Acetate 1% Op Susp 5 Ml Btl) 1 drops OPB DAILY STEPHANIE Stop: 08/06/24 08:59 Last Admin: 07/08/24 07:22 Dose: Not Given (3) Aspiration pneumonia Aspiration pneumonia type: unspecified Laterality: bilateral Lung location: lower lobe of lung Qualified Code(s): J69.0 - Pneumonitis due to inhalation of food and vomit (4) Sepsis Sepsis acute organ dysfunction status: unspecified Sepsis type: sepsis due to unspecified organism Qualified Code(s): A41.9 - Sepsis, unspecified organism
== END 2024-07-08 14:55 | disposition hospice, inpatient (51) | DRG 871 ==
LOC: ED 16:50 → 3E 21:14 → SUATTDRO 21:14 → 3E 22:32

== ENCOUNTER 2024-07-08 15:02 | Inpatient (IN) ==
[2024-07-08] MEDS ORDERED: SODIUM CHLORIDE 0.9% NEBU SOLN 3 ML NEB PRN (15:13)
--- NOTE | 2024-07-08 15:22 | History & Physical Report ---
Date of Service July 08, 2024 Assessment & Plan (1) Comfort measures only status: Plan: Has been on comfort care since admission Reassured the patient and the daughter about the comfort care and symptomatic management thereafter Patient has been complaining of nausea and vomiting and increased respiratory secretions Appropriate medications have been administered for comfort Has been getting nausea with vomiting with any substance through mouth Will try Reglan IV AC and there is discussed with the daughter Otherwise remains comfortable and will continue with the current management of comfort care Patient is Admitted under [facility] service Below is the continued medical conditions and the management she received for those:Noted by the Admitting team Sepsis Acute respiratory failure with hypoxia Bilateral pneumonia likely due to aspiration Complicated urinary tract infection Dehydration Hypertensive urgency Hypokalemia Lactic acidosis Mild troponin elevation likely demand ischemia Esophagitis Acute metabolic encephalopathy secondary to above Other chronic conditions: paroxysmal atrial fibrillation s/p left atrial appendage ligation Chronic diastolic heart failure Hypertension Hyperlipidemia Pulmonary hypertension valvular heart disease s/p aortic valve replacement Recurrent urinary tract infections Chronic indwelling Pardo catheter MGUS Paraesophageal hernia S/P repair Iron deficiency anemia (2) Complicated urinary tract infection: (3) Aspiration pneumonia: (4) Sepsis: Plan: DVT Px: Not indicated CODE STATUS DNI DNR Disposition Admit to [facility] Admission and Anticipated Discharge Date Admission Date: July 08, 2024 History of Present Illness Chief Complaint: Worsening Status. Admitted under [facility] Primary Care Provider: Eliazar Reis MD Chief Complaint: Nausea and Vomiting Primary Care Provider: Eliazar Reis MD Patient is an 88-year-old female with history of paroxysmal atrial fibrillation s/p left atrial appendage ligation, currently not on any anticoagulation, chronic diastolic heart failure, hypertension, hyperlipidemia, pulmonary hypertension, valvular heart disease s/p aortic valve replacement, urinary incontinence, chronic indwelling Pardo catheter, MGUS, paraesophageal hernia S/P repair, iron deficiency anemia, recurrent urinary tract infections and other medical comorbidities who was recently discharged from [facility] 2 weeks ago after being treated for pneumonia, pleural AAA, diastolic heart failure was discharged to [facility] to be transition to comfort measures. Patient is currently lethargic and most of the history is obtained from patient's daughter at bedside. Patient is going through a lot of grief currently due to loss of family member. Patient started to have nausea and vomiting on Tuesday which resolved and then tolerated diet. She was noted to have intractable nausea, vomiting again today while at [facility]. She has been lethargic and intermittently confused as per daughter. She was also noted to have cough with some expectoration. No known history of chest pain, dyspnea, dizziness, fever, chills dysuria, hematuria. Patient admi ts to have some abdominal discomfort. Catheter was changed while in ED. Patient received meropenem, IV fluids while in ED. She was also noted to be hypoxic in 80s per ER staff requiring supplemental oxygen to maintain saturation. Allergies Allergy/AdvReac Type Severity Reaction Status Date / Time simvastatin AdvReac Severe ELEVATED Verified 06/19/24 10:41 LIVER ENZYMES oxaprozin AdvReac Intermediate MAKES FEEL Verified 06/19/24 10:41 DEPRESSED Home Medications Medication Instructions Recorded Confirmed Type prednisolone acetate 1 % eye 1 drp OPB DAILY 07/15/20 07/06/24 History drops,suspension acetaminophen 500 mg tablet 1,000 mg PO BID PRN Pain 06/13/21 07/06/24 History (Tylenol Extra Strength) ascorbic acid (vitamin C) 500 mg 500 mg PO QAM 06/13/21 07/06/24 History tablet (Vitamin C) fexofenadine 180 mg tablet 180 mg PO HS 07/06/21 07/06/24 History metoprolol succinate 25 mg 12.5 mg PO QAM 08/07/21 07/06/24 History tablet,extended release 24 hr ondansetron 4 mg disintegrating 4 mg PO Q6H PRN Nausea/Vomiting 04/25/23 07/06/24 History tablet amiodarone 200 mg tablet 200 mg PO QAM 01/26/24 07/06/24 History docusate sodium 100 mg capsule See Rx Instructions .Route .COMPLEX 04/23/24 07/06/24 History (Colace) furosemide 20 mg tablet 20 mg PO DAILY PRN Leg 04/23/24 07/06/24 History Swelling/Weight Gain psyllium husk 0.4 gram capsule 0.4 g PO DAILY 04/23/24 07/06/24 History (Metamucil) famotidine 20 mg tablet 20 mg PO DAILY PRN Indigestion 04/29/24 07/06/24 History calcium carbonate 500 mg PO DAILY 06/19/24 07/06/24 History carboxymethylcellulose sodium 1 % 1 drp ophthalmic (eye) BID PRN Dry 06/19/24 07/06/24 History eye liquid gel drops Eyes magnesium oxide 500 mg capsule 500 mg PO DAILY 06/19/24 07/06/24 History Past Med/Surg History Problem List (Updated 07/07/24 @ 17:25 by Abdi Malloy MD) Comfort measures only status Sepsis (Acute) Complicated urinary tract infection (Acute) Aspiration pneumonia (Acute) Thrombocytopenia (Acute) Anemia (Acute) Prolonged QT interval History of hypercalcemia MGUS (monoclonal gammopathy of unknown significance) Chronic anemia Venous stasis dermatitis of both lower extremities Wound of sacral region History of urinary retention Pardo catheter in place prior to arrival Acute hyponatremia (Acute) Acute UTI (Acute) Acute confusion due to infection Suspected UTI Age-related cognitive decline Dysphagia Chest wall contusion Hypomagnesemia Frequent falls Hypercalcemia (Acute) Chronic venous insufficiency (Chronic) Traumatic open wound of lower leg (Acute) Hypokalemia Generalized weakness (Acute) Acute on chronic heart failure with preserved ejection fraction (HFpEF) Elevated troponin (Acute) Hypoxia (Acute) CHF (congestive heart failure) (Acute) Nausea (Acute) Surgical wound, non healing (Acute) Venous insufficiency of both lower extremities (Chronic) Infected hematoma (Acute) Infected wound Syncope Cellulitis of leg, right DVT prophylaxis Thrombocytopenia Anemia Hematoma Laceration of lip (Acute) Ambulatory dysfunction (Acute) Acute knee pain (Acute) Fall (Acute) Paroxysmal atrial fibrillation (Acute) controlled w/ meds Dr Meyer Chronic diastolic CHF (congestive heart failure) Medical History Catheter-associated urinary tract infection Left lower lobe pneumonia Altered mental status Chest pain MGUS (monoclonal gammopathy of unknown significance) Seasonal allergies Incontinence of urine Nausea and vomiting after administration of anesthetic agent History of COVID-19 2020- no hosp; resolved GERD (gastroesophageal reflux disease) Surgical History Hx of cardiac catheterization ~2018, prior to valve replacement, no stents History of esophagogastroduodenoscopy (EGD) Hx of colonoscopy H/O: hysterectomy S/P repair of paraesophageal hernia History of total knee arthroplasty S/P aortic valve replacement with bioprosthetic valve ~2018- [facility] Family History Other Cancer Diabetes Social History Smoking Status: Former smoker Tobacco Type: Cigarettes Second Hand Exposure: No; Do You Dip or Chew Tobacco: No; Hx Alcohol Use: No Hx Substance Use: No Preferred Language: [place] Communication Ability: Unable Visual Impairment: Severely Limited Hearing Ability: Hard of Hearing Area Cleaner Required: No Beliefs That Will Affect Care: None marital status: / Current Living Situation: [facility] Current Living Situation Comment: [facility] current occupational status: retired How many Children do You have: 3 How many Children do You have Comment: all able to assist with care Feels Safe at Home: Yes Diet: regular caffeine: Yes during the past year weight has: remained stable Assistive Devices: Walker and Wheelchair Physical Exam Physical Exam: Lying in bed with acute distress due to shortness of breath Constitutional: + ill appearing and + thin Eyes: PERRL, conjunctivae normal, anicteric sclerae ENMT: external ear and nose normal, oropharynx normal Neck: trachea midline, no thyromegaly Respiratory: + respiratory distress Auscultation: + diminished lung sounds, + crackles and + wheezes Cardiovascular: Rate/Rhythm: regular rate and regular rhythm; not tachycardic Heart Sounds: normal S1, normal S2 and + murmur Extremities: no edema Gastrointestinal (Abdomen): Inspection/Auscultation: normal bowel sounds; abdomen not distended Percussion/Palpation: abdomen soft; abdomen nontender Neurologic: awake, + confused and + obtunded Lymphatic: no cervical or axillary lymphadenopathy Code Status & VTE Plan VTE Prophylaxis Plan VTE Prophylaxis will be ordered: No Reason for no VTE drug order: Contraindicated (3) Aspiration pneumonia Aspiration pneumonia type: unspecified Laterality: bilateral Lung location: lower lobe of lung Qualified Code(s): J69.0 - Pneumonitis due to inhalation of food and vomit (4) Sepsis Sepsis acute organ dysfunction status: unspecified Sepsis type: sepsis due to unspecified organism Qualified Code(s): A41.9 - Sepsis, unspecified organism
[2024-07-08] MEDS: METOCLOPRAMIDE HCL INJ 5 MG/ML 2 ML VIAL IV SCH (15:30)
[2024-07-08] MEDS: LORazepam 2 MG/1 ML VIAL IV SCH (16:20)
[2024-07-08] MEDS ORDERED: PROMETHAZINE 6.25 MG/50.25 ML BAG IV PRN (17:06)
[2024-07-08] MEDS: OLANZAPINE 2.5 MG TAB PO SCH (20:19)
[2024-07-09] MEDS ORDERED: METOCLOPRAMIDE HCL INJ 5 MG/ML 2 ML VIAL IV PRN ×2 (14:21→14:34)
[2024-07-09] MEDS: LORazepam 2 MG/1 ML VIAL IV SCH (15:21)
--- NOTE | 2024-07-09 15:51 | Hospitalist Progress Note ---
Date of Service July 09, 2024 Assessment & Plan (1) Comfort measures only status: Plan: Has been on comfort care since admission Reassured the patient and the daughter about the comfort care and symptomatic management thereafter Patient has been complaining of nausea and vomiting and increased respiratory secretions Appropriate medications have been administered for comfort Has been getting nausea with vomiting with any substance through mouth Will try Reglan IV AC and there is discussed with the daughter Otherwise remains comfortable and will continue with the current management of comfort care Patient is Admitted under [facility] service Remains comfortable without any significant distress and/or symptoms Medications have been adjusted as per [facility] service instruction Below is the continued medical conditions and the management she received for those:Noted by the Admitting team Sepsis Acute respiratory failure with hypoxia Bilateral pneumonia likely due to aspiration Complicated urinary tract infection Dehydration Hypertensive urgency Hypokalemia Lactic acidosis Mild troponin elevation likely demand ischemia Esophagitis Acute metabolic encephalopathy secondary to above Other chronic conditions: paroxysmal atrial fibrillation s/p left atrial appendage ligation Chronic diastolic heart failure Hypertension Hyperlipidemia Pulmonary hypertension valvular heart disease s/p aortic valve replacement Recurrent urinary tract infections Chronic indwelling Pardo catheter MGUS Paraesophageal hernia S/P repair Iron deficiency anemia (2) Complicated urinary tract infection: (3) Aspiration pneumonia: (4) Sepsis: Plan: DVT Px: Not indicated CODE STATUS DNI DNR Disposition Admit to [facility] Admission and Anticipated Discharge Date Admission Date: July 08, 2024 Subjective 07/09/2024 The patient was seen and examined in medical floor in presence of the daughter She remains comfortable and denies any significant symptoms of pain and/or shortness of breath Medications have been adjusted by the hospice team Physical Exam Physical Exam: Lying in bed with acute distress due to shortness of breath Constitutional: + ill appearing and + thin Eyes: PERRL, conjunctivae normal, anicteric sclerae ENMT: external ear and nose normal, oropharynx normal Neck: trachea midline, no thyromegaly Respiratory: + respiratory distress Auscultation: + diminished lung sounds, + crackles and + wheezes Cardiovascular: Rate/Rhythm: regular rate and regular rhythm; not tachycardic Heart Sounds: normal S1, normal S2 and + murmur Extremities: no edema Gastrointestinal (Abdomen): Inspection/Auscultation: normal bowel sounds; abdomen not distended Percussion/Palpation: abdomen soft; abdomen nontender Neurologic: awake, + confused and + obtunded Lymphatic: no cervical or axillary lymphadenopathy Results & Data Results & Data Medications Administered Current Inpatient Medications Promethazine HCl (Phenergan) 6.25 mg in 50.25 mls @ 201 mls/hr IV Q6H PRN PRN Reason: Nausea And Vomiting Stop: 08/07/24 17:05 Lorazepam (Lorazepam 2 Mg/1 Ml Vial) 0.5 mg IV Q8H STEPHANIE Stop: 08/08/24 14:29 Last Admin: 07/09/24 15:21 Dose: 0.5 mg Lorazepam (Lorazepam 2 Mg/1 Ml Vial) 0.5 mg IV Q4H PRN PRN Reason: Agitation Stop: 08/08/24 14:19 Metoclopramide HCl (Metoclopramide Hcl Inj 5 Mg/Ml 2 Ml Vial) 5 mg IV Q6H PRN PRN Reason: Nausea And Vomiting Stop: 08/08/24 14:20 Olanzapine (Olanzapine 5 Mg Tablet) 5 mg PO HS STEPHANIE Stop: 08/08/24 20:59 Sodium Chloride (Sodium Chloride 0.9% Nebu Soln 3 Ml) 2.5 ml NEB Q4H PRN PRN Reason: Dyspnea Stop: 08/07/24 15:12 (3) Aspiration pneumonia Aspiration pneumonia type: unspecified Laterality: bilateral Lung location: lower lobe of lung Qualified Code(s): J69.0 - Pneumonitis due to inhalation of food and vomit (4) Sepsis Sepsis acute organ dysfunction status: unspecified Sepsis type: sepsis due to unspecified organism Qualified Code(s): A41.9 - Sepsis, unspecified organism
[2024-07-09] MEDS: OLANZapine 5 MG TABLET PO SCH (20:02)
[2024-07-10] MEDS ORDERED: FAMOTIDINE 20MG IV PUSH 20 MG/5 ML SYR IV PRN (11:45)
[2024-07-10] MEDS: LORazepam 2 MG/1 ML VIAL IV SCH (13:08)
[2024-07-10] MEDS ORDERED: MoRPHine SULFATE 10 MG/0.5 ML UDP PO PRN (16:08)
[2024-07-10] MEDS: MoRPHine SULFATE 2 MG/ML CARP IV PRN (16:17)
--- NOTE | 2024-07-10 17:09 | Hospitalist Progress Note ---
Date of Service July 10, 2024 Assessment & Plan (1) Comfort measures only status: Plan: Sepsis Acute respiratory failure with hypoxia Bilateral pneumonia likely due to aspiration Complicated urinary tract infection Dehydration Hypertensive urgency Hypokalemia Lactic acidosis Mild troponin elevation likely demand ischemia Esophagitis Acute metabolic encephalopathy secondary to above Other chronic conditions: paroxysmal atrial fibrillation s/p left atrial appendage ligation Chronic diastolic heart failure Hypertension Hyperlipidemia Pulmonary hypertension valvular heart disease s/p aortic valve replacement Recurrent urinary tract infections Chronic indwelling Pardo catheter MGUS Paraesophageal hernia S/P repair Iron deficiency anemia Currently on comfort measures only Under [facility] hospice Continue pain control, antianxiety, antiemetics as needed CODE STATUS DNR/DNI (2) Complicated urinary tract infection: (3) Aspiration pneumonia: (4) Sepsis: Plan: DVT Px: Not indicated CODE STATUS DNI DNR Disposition Admit to [facility] Admission and Anticipated Discharge Date Admission Date: July 08, 2024 Subjective Patient is seen and examined at bedside Intermittently confused Denies any chest pain, dyspnea Discussed with patient's family at bedside Currently on comfort measures only Review of Systems Review of Systems: Unobtainable due to reduced consciousness Physical Exam Physical Exam: Physical Exam: Vitals signs as noted above General Appearance: Thin, frail, ill-appearing, milddistress Head: normocephalic, Atraumatic Eyes: normal inspection, EOMI Neck: supple, Trachea midline Respiratory/Chest: Decreased breath sounds, No accessory muscle use Cardiovascular: Irregularly irregular, +murmur Abdomen/GI:Soft, Non tender, Bowel sounds present Extremities/Musculoskeletal:normal inspection, no edema, chronic venous stasis changes Neurologic/Psych:AA, lethargic, grossly moves all extremities, intermittently confused, hallucination Skin: normal color, warm Results & Data Results & Data Vital Signs (Past 12 Hours) Vital Signs O2 Del Method 07/10/24 09:21 Room Air (3) Aspiration pneumonia Aspiration pneumonia type: unspecified Laterality: bilateral Lung location: lower lobe of lung Qualified Code(s): J69.0 - Pneumonitis due to inhalation of food and vomit (4) Sepsis Sepsis acute organ dysfunction status: unspecified Sepsis type: sepsis due to unspecified organism Qualified Code(s): A41.9 - Sepsis, unspecified organism
[2024-07-10] MEDS: LORazepam 2 MG/1 ML VIAL IV PRN (18:15)
[2024-07-11] MEDS: MoRPHine SULFATE 2 MG/ML CARP IV SCH (13:26)
[2024-07-11] MEDS: GLYCOPYRROLATE 0.2 MG/ML VIAL IV PRN (13:26)
[2024-07-11] MEDS: MoRPHine SULFATE 10 MG/0.5 ML UDP PO PRN (15:28)
--- NOTE | 2024-07-11 16:56 | Hospitalist Progress Note ---
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 Recurrent urinary tract infections Chronic indwelling Pardo catheter MGUS Paraesophageal hernia S/P repair Iron deficiency anemia Currently on comfort measures only Under [facility] hospice Continue pain control, antianxiety, antiemetics as needed Will adjust medications as needed CODE STATUS DNR/DNI (2) Complicated urinary tract infection: (3) Aspiration pneumonia: (4) Sepsis: Plan: DVT Px: Not indicated CODE STATUS DNI DNR Disposition Admit to [facility] Admission and Anticipated Discharge Date Admission Date: July 08, 2024 Subjective Patient is seen and examined at bedside Mostly obtunded during my encounter Discussed with patient's family at bedside No distress on exam Review of Systems Review of Systems: Other Physical Exam Physical Exam: Physical Exam: Vitals signs as noted above General Appearance: Thin, frail, ill-appearing, milddistress Head: normocephalic, Atraumatic Eyes: normal inspection, EOMI Neck: supple, Trachea midline Respiratory/Chest: Decreased breath sounds, No accessory muscle use Cardiovascular: Irregularly irregular, +murmur Abdomen/GI:Soft, Non tender, Bowel sounds present Extremities/Musculoskeletal:normal inspection, no edema, chronic venous stasis changes Neurologic/Psych:AA, lethargic, grossly moves all extremities, intermittently confused, hallucination Skin: normal color, warm Results & Data Results & Data Vital Signs (Past 12 Hours) Vital Signs O2 Del Method 07/11/24 09:04 Room Air (3) Aspiration pneumonia Aspiration pneumonia type: unspecified Laterality: bilateral Lung location: lower lobe of lung Qualified Code(s): J69.0 - Pneumonitis due to inhalation of food and vomit (4) Sepsis Sepsis acute organ dysfunction status: unspecified Sepsis type: sepsis due to unspecified organism Qualified Code(s): A41.9 - Sepsis, unspecified organism
[2024-07-12] MEDS ORDERED: ATROPINE SULFATE 1% OP SOLN 5 ML BTL SL PRN (15:39)
--- NOTE | 2024-07-12 16:18 | Hospitalist Progress Note ---
Date of Service July 12, 2024 Assessment & Plan (1) Comfort measures only status: Plan: Sepsis Acute respiratory failure with hypoxia Bilateral pneumonia likely due to aspiration Complicated urinary tract infection Dehydration Hypertensive urgency Hypokalemia Lactic acidosis Mild troponin elevation likely demand ischemia Esophagitis Acute metabolic encephalopathy secondary to above Other chronic conditions: paroxysmal atrial fibrillation s/p left atrial appendage ligation Chronic diastolic heart failure Hypertension Hyperlipidemia Pulmonary hypertension valvular heart disease s/p aortic valve replacement Recurrent urinary tract infections Chronic indwelling Pardo catheter MGUS Paraesophageal hernia S/P repair Iron deficiency anemia Currently on comfort measures only Under [facility] hospice Continue pain control, antianxiety, antiemetics as needed Continue comfort care and medications as needed Clinically deteriorating CODE STATUS DNR/DNI (2) Complicated urinary tract infection: (3) Aspiration pneumonia: (4) Sepsis: Plan: DVT Px: Not indicated CODE STATUS DNI DNR Disposition Admit to [facility] Admission and Anticipated Discharge Date Admission Date: July 08, 2024 Subjective Patient is seen and examined at bedside Remains obtunded Patient's family at bedside No distress on exam Review of Systems Review of Systems: All systems reviewed & are unremarkable except as noted in Subjective Physical Exam Physical Exam: Physical Exam: Vitals signs as noted above General Appearance: Thin, frail, ill-appearing, milddistress Head: normocephalic, Atraumatic Eyes: normal inspection, EOMI Neck: supple, Trachea midline Respiratory/Chest: Decreased breath sounds, No accessory muscle use Cardiovascular: Irregularly irregular, +murmur Abdomen/GI:Soft, Non tender, Bowel sounds present Extremities/Musculoskeletal:normal inspection, no edema, chronic venous stasis changes Neurologic/Psych:AA, lethargic, grossly moves all extremities, intermittently confused, hallucination Skin: normal color, warm Results & Data Results & Data Vital Signs (Past 12 Hours) Vital Signs O2 Del Method 07/12/24 15:12 Room Air 07/12/24 07:15 Room Air (3) Aspiration pneumonia Aspiration pneumonia type: unspecified Laterality: bilateral Lung location: lower lobe of lung Qualified Code(s): J69.0 - Pneumonitis due to inhalation of food and vomit (4) Sepsis Sepsis acute organ dysfunction status: unspecified Sepsis type: sepsis due to unspecified organism Qualified Code(s): A41.9 - Sepsis, unspecified organism
[2024-07-13 15:01] VITALS: RESP 16; O2SAT 98
--- NOTE | 2024-07-13 16:38 | Hospitalist Progress Note ---
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 Recurrent urinary tract infections Chronic indwelling Pardo catheter MGUS Paraesophageal hernia S/P repair Iron deficiency anemia Currently on comfort measures only Under [facility] hospice Continue pain control, antianxiety, antiemetics as needed Continue comfort care and medications as needed Clinically deteriorating Continue current management CODE STATUS DNR/DNI (2) Complicated urinary tract infection: (3) Aspiration pneumonia: (4) Sepsis: Plan: DVT Px: Not indicated CODE STATUS DNI DNR Disposition Admit to [facility] Admission and Anticipated Discharge Date Admission Date: July 08, 2024 Subjective Patient is seen and examined at bedside obtunded on exam today Discussed with patient family at bedside Clinically deteriorating No distress Review of Systems Review of Systems: Other Physical Exam Physical Exam: Physical Exam: Vitals signs as noted above General Appearance: Thin, frail, ill-appearing, no distress Head: normocephalic, Atraumatic Eyes: normal inspection, EOMI Neck: supple, Trachea midline Respiratory/Chest: Decreased breath sounds, No accessory muscle use Cardiovascular: Irregularly irregular, +murmur, tachycardia Abdomen/GI:Soft, Non tender, Bowel sounds present Extremities/Musculoskeletal:normal inspection, no edema, chronic venous stasis changes Neurologic/Psych: Obtunded, unable to perform any neurological exam Skin: normal color, warm Results & Data Results & Data Vital Signs (Past 12 Hours) Vital Signs Resp Pulse Ox O2 Del Method 07/13/24 15:01 16 98 Room Air 07/13/24 07:15 Room Air (3) Aspiration pneumonia Aspiration pneumonia type: unspecified Laterality: bilateral Lung location: lower lobe of lung Qualified Code(s): J69.0 - Pneumonitis due to inhalation of food and vomit (4) Sepsis Sepsis acute organ dysfunction status: unspecified Sepsis type: sepsis due to unspecified organism Qualified Code(s): A41.9 - Sepsis, unspecified organism
--- NOTE | 2024-07-14 15:55 | Hospitalist Progress Note ---
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 Recurrent urinary tract infections Chronic indwelling Pardo catheter MGUS Paraesophageal hernia S/P repair Iron deficiency anemia Currently on comfort measures only Under [facility] hospice Continue pain control, antianxiety, antiemetics as needed Continue comfort care and medications as needed Clinically deteriorating Continue comfort medications CODE STATUS DNR/DNI (2) Complicated urinary tract infection: (3) Aspiration pneumonia: (4) Sepsis: Plan: DVT Px: Not indicated CODE STATUS DNI DNR Disposition Admit to [facility] Admission and Anticipated Discharge Date Admission Date: July 08, 2024 Subjective Patient is seen and examined at bedside obtunded Unable to obtain any history Family at bedside Comfort measures only Review of Systems Review of Systems: Unobtainable due to reduced consciousness Physical Exam Physical Exam: Physical Exam: Vitals signs as noted above General Appearance: Thin, frail, ill-appearing, no distress Head: normocephalic, Atraumatic Eyes: normal inspection, EOMI Neck: supple, Trachea midline Respiratory/Chest: Decreased breath sounds, No accessory muscle use Cardiovascular: Irregularly irregular, +murmur, tachycardia Abdomen/GI:Soft, Non tender, Bowel sounds present Extremities/Musculoskeletal:normal inspection, no edema, chronic venous stasis changes Neurologic/Psych: Obtunded, unable to perform any neurological exam Skin: normal color, warm (3) Aspiration pneumonia Aspiration pneumonia type: unspecified Laterality: bilateral Lung location: lower lobe of lung Qualified Code(s): J69.0 - Pneumonitis due to inhalation of food and vomit (4) Sepsis Sepsis acute organ dysfunction status: unspecified Sepsis type: sepsis due to unspecified organism Qualified Code(s): A41.9 - Sepsis, unspecified organism
--- NOTE | 2024-07-15 15:10 | Hospitalist Progress Note ---
Date of Service July 15, 2024 Assessment & Plan (1) Comfort measures only status: Plan: Sepsis Acute respiratory failure with hypoxia Bilateral pneumonia likely due to aspiration Complicated urinary tract infection Dehydration Hypertensive urgency Hypokalemia Lactic acidosis Mild troponin elevation likely demand ischemia Esophagitis Acute metabolic encephalopathy secondary to above Other chronic conditions: paroxysmal atrial fibrillation s/p left atrial appendage ligation Chronic diastolic heart failure Hypertension Hyperlipidemia Pulmonary hypertension valvular heart disease s/p aortic valve replacement Recurrent urinary tract infections Chronic indwelling Pardo catheter MGUS Paraesophageal hernia S/P repair Iron deficiency anemia Currently on comfort measures only Under [facility] hospice Continue pain control, antianxiety, antiemetics as needed Continue comfort care and medications as needed Clinically deteriorating Continue comfort medications Continue current management CODE STATUS DNR/DNI (2) Complicated urinary tract infection: (3) Aspiration pneumonia: (4) Sepsis: Plan: DVT Px: Not indicated CODE STATUS DNI DNR Disposition Admit to [facility] Admission and Anticipated Discharge Date Admission Date: July 08, 2024 Subjective Patient is seen and examined at bedside obtunded Unable to obtain any history Family at bedside Comfort measures only Clinically no significant change from yesterday Review of Systems Review of Systems: Other Physical Exam Physical Exam: Physical Exam: Vitals signs as noted above General Appearance: Thin, frail, ill-appearing, no distress, obtunded Head: normocephalic, Atraumatic Eyes: normal inspection, EOMI Neck: supple, Trachea midline Respiratory/Chest: Decreased breath sounds, No accessory muscle use Cardiovascular: Irregularly irregular, +murmur, tachycardia Abdomen/GI:Soft, Non tender, Bowel sounds present Extremities/Musculoskeletal:normal inspection, no edema, chronic venous stasis changes Neurologic/Psych: Obtunded, unable to perform any neurological exam Skin: normal color, warm (3) Aspiration pneumonia Aspiration pneumonia type: unspecified Laterality: bilateral Lung location: lower lobe of lung Qualified Code(s): J69.0 - Pneumonitis due to inhalation of food and vomit (4) Sepsis Sepsis acute organ dysfunction status: unspecified Sepsis type: sepsis due to unspecified organism Qualified Code(s): A41.9 - Sepsis, unspecified organism
--- NOTE | 2024-07-16 09:26 | Hospitalist Progress Note ---
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 Patient on my exam had no heart sounds, breath sounds. Pupils dilated and fixed. Patient was pronounced . Updated patient's family at bedside. CODE STATUS DNR/DNI (2) Complicated urinary tract infection: (3) Aspiration pneumonia: (4) Sepsis: Plan: DVT Px: Not indicated CODE STATUS DNI DNR Disposition Admit to [facility] Admission and Anticipated Discharge Date Admission Date: July 08, 2024 Subjective Review of Systems Review of Systems: Other Physical Exam Physical Exam: No audible heart, breath sounds Pupils dilated and fixed (3) Aspiration pneumonia Aspiration pneumonia type: unspecified Laterality: bilateral Lung location: lower lobe of lung Qualified Code(s): J69.0 - Pneumonitis due to inhalation of food and vomit (4) Sepsis Sepsis acute organ dysfunction status: unspecified Sepsis type: sepsis due to unspecified organism Qualified Code(s): A41.9 - Sepsis, unspecified organism
--- NOTE | 2024-07-16 12:41 | Discharge Summary ---
Date of Service July 16, 2024 Admission HPI Per Admitting Provider Chief Complaint: Nausea and Vomiting Primary Care Provider: Eliazar Reis MD Patient is an 88-year-old female with history of paroxysmal atrial fibrillation s/p left atrial appendage ligation, currently not on any anticoagulation, chronic diastolic heart failure, hypertension, hyperlipidemia, pulmonary hypertension, valvular heart disease s/p aortic valve replacement, urinary incontinence, chronic indwelling Pardo catheter, MGUS, paraesophageal hernia S/P repair, iron deficiency anemia, recurrent urinary tract infections and other medical comorbidities who was recently discharged from [facility] 2 weeks ago after being treated for pneumonia, pleural AAA, diastolic heart failure was discharged to [facility] to be transition to comfort measures. Patient is currently lethargic and most of the history is obtained from patient's daughter at bedside. Patient is going through a lot of grief currently due to loss of family member. Patient started to have nausea and vomiting on Tuesday which resolved and then tolerated diet. She was noted to have intractable nausea, vomiting again today while at [facility]. She has been lethargic and intermittently confused as per daughter. She was also noted to have cough with some expectoration. No known history of chest pain, dyspnea, dizziness, fever, chills dysuria, hematuria. Patient admits to have some abdominal discomfort. Catheter was changed while in ED. Patient received meropenem, IV fluids while in ED. She was also noted to be hypoxic in 80s per ER staff requiring supplemental oxygen to maintain saturation. Principal Diagnosis Sepsis Acute respiratory failure with hypoxia Bilateral pneumonia likely due to aspiration Complicated urinary tract infection Hypertensive urgency Lactic acidosis Acute metabolic encephalopathy Discharge Data Allergies Allergy/AdvReac Type Severity Reaction Status Date / Time simvastatin AdvReac Severe ELEVATED Verified 06/19/24 10:41 LIVER ENZYMES oxaprozin AdvReac Intermediate MAKES FEEL Verified 06/19/24 10:41 DEPRESSED Hospital Course (1) Comfort measures only status: Sepsis Acute respiratory failure with hypoxia Bilateral pneumonia likely due to aspiration Complicated urinary tract infection Dehydration Hypertensive urgency Hypokalemia Lactic acidosis Mild troponin elevation likely demand ischemia Esophagitis Acute metabolic encephalopathy secondary to above Other chronic conditions: paroxysmal atrial fibrillation s/p left atrial appendage ligation Chronic diastolic heart failure Hypertension Hyperlipidemia Pulmonary hypertension 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 Patient on my exam had no heart sounds, breath sounds. Pupils dilated and fixed. Patient was pronounced . Updated patient's family at bedside. CODE STATUS DNR/DNI (2) Complicated urinary tract infection: (3) Aspiration pneumonia: (4) Sepsis: Total Time Total Time Spent Total Time Spent (In Minutes): 24 minutes Discharge Plan Discharge Items Patient Disposition: Other Date/Time: 07/16/24 08:30
--- NOTE | 2024-07-16 16:39 | Communication Note ---
Date of Service: July 16, 2024
== END 2024-07-16 11:36 | disposition expired | DRG 951 ==
LOC: 3E 15:04 → SUATTDRO 15:04